=== PATIENT | male | born 1945 | race Caucasian/White ===

== ENCOUNTER → 2019-07-24 13:00 | Outpatient (CLI) | payer MEDICARE, OTHER, SELFPAY ==
--- NOTE | 2019-07-24 | XR_ITS ---
CHEST 2 VIEWS HISTORY: Smoking and left-sided pain. COMPARISON: 03/30/2018 Lungs: Hyperinflated lungs with changes of emphysema. Flattening of the diaphragms and increased AP diameter. No pneumonia. Normal vasculature. Cardiac size: Normal. Mediastinum/Aorta: Mild atherosclerosis aorta. Prior median sternotomy and CABG. Bones: Moderate increase in thoracic kyphosis. Mild anterior wedging of T7. Similar to prior studies. IMPRESSION: 1. Moderately severe chronic emphysema and prior CABG. 2. No pneumonia. 3. Stable chest. MTDD
== END ==
PROVIDERS: Family Provider Family Medicine; PCP Family Medicine; Visit Provider Nurse Practitioner Family
DX: Z01.89 Encounter for other specified special examinations (principal)

== ENCOUNTER 2019-09-14 11:40 | Outpatient (CLI) | payer MEDICARE, OTHER, SELFPAY ==
[2019-09-14 12:10] LABS: Basophils # 0.1 10^3/uL (0.0-0.1); Basophils % 0.7 %; Eosinophils # 0.2 10^3/uL (0.0-0.8); Eosinophils % 1.8 %; Hematocrit 44.9 % (42.0-52.0); Hemoglobin 14.4 g/dL (11.7-16.6); Lymphocytes % 26.9 %; Mean Corpuscular HGB Conc 32.1 g/dL (30.0-36.0); Mean Corpuscular Hemoglobin 30.8 pg (28.0-34.0); Mean Corpuscular Volume 96.1 fL (80-94); Mean Platelet Volume 9.1 fL (7.4-10.4); Monocytes # 0.9 10^3/uL (0.2-0.9); Monocytes % 7.9 %; Neutrophils # 7.1 10^3/uL (1.8-7.7); Neutrophils % 62.3 %; Nucleated Red Blood Cells % 0 %; Platelet Count 262 10^3/cmm (130-400); Red Blood Count 4.67 10^6/uL (4.1-5.3); Red Cell Distribution Width 14.3 % (12.1-15.1); White Blood Count 11.3 10^3/uL (4.0-10.0)
--- NOTE | 2019-09-14 12:25 | ECG_ITS ---
Measurements Intervals [place] Rate: 76 P: 78 NM: 183 QRS: 25 QRSD: 133 T: 39 QT: 370 QTc: 418 SINUS RHYTHM RIGHT BUNDLE BRANCH BLOCK [120+ ms QRS DURATION, UPRIGHT V1, 40+ ms S IN I/ I/aVL/V4/V5/V6] No previous ECG available for comparison Electronically Signed On 09-14-2019 14:17:22 PLUNKET NURSE by Xavier Oliveira M.D. [email or web address]
[2019-09-14 12:37] LABS: Anion Gap 15.8 (5-19); Blood Urea Nitrogen 19 mg/dL (8-23); Calcium 10.3 mg/dL (8.5-10.5); Carbon Dioxide 28 mmol/L (22-29); Chloride 101 mmol/L (98-107); Glucose 120 mg/dL (65-115); Osmolality Calculated 288 mOsm/kg (285-295); Potassium 4.8 mmol/L (3.5-5.1); Sodium 140 mmol/L (136-145)
== END 2019-09-14 11:41 | disposition home or self-care (01) ==
LOC: LAB 11:48
PROVIDERS: Family Provider Family Medicine; PCP Family Medicine; Visit Provider Specialist
DX: Z01.810 Encounter for preprocedural cardiovascular examination (principal); I45.10 Unspecified right bundle-branch block
CPT/HCPCS: 36415; 80048; 85025; 93005

== ENCOUNTER 2019-12-28 13:40 | Outpatient (CLI) | payer MEDICARE, OTHER, SELFPAY ==
--- NOTE | 2019-12-28 13:51 | XR_ITS ---
WS: [id number] DEXA (DUAL ENERGY X-RAY ABSORPTIOMETRY) Bone mineral density was performed using a Flinqer machine. HISTORY: OSTEOPOROSIS, 74-year-old male. COMPARISON: 11/14/2017 Lumbar spine BMD (L1-L4): 1.266 g/cm2 T score: 0.4 Z score: 0.5 Total hip BMD: Right: 0.835. T score: -1.9 Z score: -1.2 10 year probability of a major osteoporotic fracture is 10%. Compared to the prior study from 11/14/2017. Lumbar spine bone mineral density has increased by 1.4%. Bilateral hips bone mineral density has decreased by -0.9%. XR/XR DEXA axial skeleton* [id number] IMPRESSION: OSTEOPENIA. No significant change in bone mineral density since the prior exami [facility].
== END 2019-12-28 13:41 | disposition home or self-care (01) ==
LOC: RADWPI 13:47
PROVIDERS: Family Provider Family Medicine; PCP Family Medicine; Visit Provider Family Medicine
DX: M81.0 Age-related osteoporosis without current pathological fracture (principal); M85.89 Other specified disorders of bone density and structure, multiple sites
CPT/HCPCS: 77080

== ENCOUNTER 2020-01-01 08:15 | Outpatient (CLI) | payer MEDICARE, OTHER, SELFPAY ==
--- NOTE | 2020-01-01 09:08 | CT_ITS ---
WS: [id number] CT CHEST TECHNIQUE: Contrast enhanced CT of the chest with coronal and sagittal reformatted images. CLINICAL INFORMATION: HEMOPTYSIS COMPARISON: CT March 07, 2012 DLP: 823.[address] scans at [facility] use at least one of these dose optimization techniques: automat ed exposure control; mA and/or kV adjustment per patient size (includes targeted exams where dose is matched to clinical indication); or iterative reconstruction. FINDINGS: Small to moderate bilateral pleural effusions. Compressive atelectasis in the lung bases left greater than right. Interstitial thickening in both lungs likely due to edema CHF. Prominent mediastinal and subcarinal lymph nodes likely reactive. Adrenal glands are normal. Fatty atrophy of the pancreas. Cholecystectomy clips. Slightly prominent r etrocrural lymph nodes likely reactive. Small esophageal hiatal hernia. Hypertrophic changes thoracic spine. CT/CT chest w con* [id number] IMPRESSION: 1. Small to moderate bilateral pleural effusions with compressive atelectasis in the lung bases left greater than right. 2. Interstitial edema in both lungs likely due to CHF. 3. Postoperative changes sternotomy with CABG. No significant pericardial effu ebenezer. 4. Cholecystectomy. 5. Small esophageal hiatal hernia. 6. A few prominent anterior mediastinal and subcarinal lymph nodes likely reac tive.
[2020-01-01 09:39] LABS: Basophils # 0.1 10^3/uL (0.0-0.1); Basophils % 0.3 %; Eosinophils # 0.1 10^3/uL (0.0-0.8); Eosinophils % 0.8 %; Hematocrit 37.6 % (42.0-52.0); Hemoglobin 12.1 g/dL (11.7-16.6); Lymphocytes # 2.2 10^3/uL (0.8-4.8); Mean Corpuscular HGB Conc 32.2 g/dL (30.0-36.0); Mean Corpuscular Hemoglobin 31.4 pg (28.0-34.0); Mean Corpuscular Volume 97.7 fL (80-94); Mean Platelet Volume 11.4 fL (7.4-10.4); Monocytes # 0.9 10^3/uL (0.2-0.9); Monocytes % 5.7 %; Nucleated Red Blood Cells % 0 %; Platelet Count 283 10^3/cmm (130-400); Red Blood Count 3.85 10^6/uL (4.1-5.3); Red Cell Distribution Width 14.3 % (12.1-15.1); White Blood Count 15.4 10^3/uL (4.0-10.0)
[2020-01-01 10:10] LABS: INR 1.04 (0.8-1.2); Partial Thromboplastin Time 30.6 SECONDS (23.9-36.7)
[2020-01-01 10:30] LABS: Blood Urea Nitrogen 32 mg/dL (8-23)
[2020-01-01] MEDS: iodixanol 320 mg/mL 100mL Btl IV (10:55)
== END 2020-01-01 08:16 | disposition home or self-care (01) ==
PROVIDERS: Family Provider Family Medicine; PCP Family Medicine; Visit Provider Family Medicine
DX: R04.2 Hemoptysis (principal); R19.7 Diarrhea, unspecified; J90 Pleural effusion, not elsewhere classified; J98.11 Atelectasis; J81.1 Chronic pulmonary edema; Z95.1 Presence of aortocoronary bypass graft; Z90.49 Acquired absence of other specified parts of digestive tract; K44.9 Diaphragmatic hernia without obstruction or gangrene
CPT/HCPCS: 36415; 71260; 82565; 84520; 85025; 85610; 85730; 87015; 87070; 87077; 87116; 87186; 87205; 87206; 87493; 87801

== ENCOUNTER 2020-01-07 16:16 | Inpatient (IN) | payer MEDICARE, OTHER, SELFPAY ==
[2020-01-07] VITALS (35 sets, daily range): BP systolic 98–119; BP diastolic 38–50; PULSE 41–47; RESP 13–28; TEMP 36.7–36.8; O2SAT 89–96; BMI 30.1
--- NOTE | 2020-01-07 17:15 | XR_ITS ---
WS: [id number] CHEST XRAY TECHNIQUE: Portable chest. CLINICAL INFORMATION: sob COMPARISON: December 24, 2019, CT January 01, 2020 FINDINGS: Heart: Cardiomegaly. Sternotomy. Lungs: Chronic emphysematous changes. Interstitial infiltrates in the right greater than left lower l obes appears stable since the recent CT. No focal consolidation. Bones: Normal visualized bony structures. XR/XR chest 1V portable [id number] IMPRESSION: 1. Small left greater than right pleural effusions with interstitial infiltrat es in the right greater than left lower lobes. This appears stable since recent CT.
--- NOTE | 2020-01-07 17:15 | ECG_ITS ---
[facility] ED Test Date: 2020-01-07 Pat Name: Patience Salcedo Department: Room: Gender: 0 Mobile Phlebotomist: : 1945 Requested By: Vandana Cesar Order Number: [id number] Jeffrey MD: Debbie Clark M.D. Measurements Intervals [place] Rate: 43 P: [place]: 0 QRS: 43 QRSD: 109 T: 3 QT: 460 QTc: 392 Interpretive Statements SINUS RHYTHM third-degree heart block, junctional escape rhythm Possible left atrial enlargement compared to ECG 09/14/2019 12:25:28 Right bundle-branch block no longer present Electronically Signed On 01-09-2020 19:12:37 CDT by Debbie Clark M.D. [id number]
--- NOTE | 2020-01-07 17:22 | ED_ITS ---
HPI - SOB/Dyspnea General: Chief Complaint: Shortness of Breath/Dyspnea Stated Complaint: sob Time Seen by Provider: 01/07/20 17:16 Source: patient Mode of arrival: ambulatory Limitations: no limitations History of Present Illness: HPI Narrative: Patience is a 74-year-old male whose had shortness of breath for the last [address] weeks[address] Patient had a CT scan on the ninth that showed a very small pleural effusion. Patient also had a cough and was placed on antibiotics. He states that his cough is improved but his shortness of breath is worsened especially with exertion. CT scan showed no signs of pulmonary embolisms. Patient here upon exertion to triage and was saturating 80% on room air and had to be placed on oxygen. He is bradycardic and takes carvedilol at home. He had mild chest pain as well. MD elicited complaint: shortness of breath and cough Associated symptoms: Deny abdominal pain, chest pain, fever(s), nausea or vomiting Review of Systems Const: Denies: fever(s), chills, body aches or change in appetite Eyes: Denies: blurry vision or eye discomfort ENMT: Denies: throat pain or dental pain Card: Denies: chest pain Resp: Reports: dyspnea GI: Denies: abdominal pain, nausea, vomiting or diarrhea : Denies: dysuria Musc: Denies: neck pain or back pain Skin/Breast: Denies: rash Neuro: Denies: headache(s) Psych: Denies: depression Eb/Lymph: Denies: easy bruising All/Imm: Denies: urticaria PFSH ED PFSH: Social History Smoking and tobacco status: former smoker Physical Exam Const: COMMON NORMALS: no acute distress, patient oriented x3 and healthy appearing HENMT: COMMON NORMALS: normocephalic and atraumatic HEAD & SCALP: normocephalic and atraumatic Eye: COMMON NORMALS: Equal, round and reactive pupils present and EOMs intact bilaterally PUPIL: Yes Equal, round and reactive pupils present Neck/C-Spine: COMMON NORMALS: full ROM and supple Chest: COMMONS NORMALS: normal inspection of the chest and normal palpation of entire chest wall Resp: COMMON NORMALS: No retractions and No use of accessory muscles EFFORT & INSPECTION: Yes tachypneic AUSCULTATION: wheezes and diminished lung sounds Cardio: COMMON NORMALS: regular rate, regular rhythm and No murmurs present (Cardio) RATE: regular rate RHYTHM: regular rhythm GI: COMMON NORMALS: Normal to inspection, nondistended, normoactive bowel sounds present, Soft to palpation, non-tender and no masses PALPATION: Yes Soft to palpation Extremity: COMMON NORMALS: normal to inspection and full ROM Neuro: COMMON NORMALS: patient oriented x3, moves all extremities and no focal motor deficits Psych: COMMON NORMALS: mental status grossly normal, Normal thought process present and cooperative THOUGHT PROCESS: Normal thought process present Skin: COMMON NORMALS: no rashes or lesions noted and no wounds GENERAL SKIN EXAM: no rashes or lesions noted Course Vital Signs: Vital signs: Vital Signs Temperature 98.0 F 01/07/20 16:28 Pulse Rate 44 L 01/07/20 17:43 Respiratory Rate 18 01/07/20 17:36 Blood Pressure 98/50 01/07/20 16:28 Pulse Oximetry 95 01/07/20 17:36 MDM - SOB/Dyspnea MDM Narrative: Medical decision making narrative: Patient presents here with shortness of breath and was hypoxic. X-ray has appearance of pneumonia and a pleural effusion. Patient also has elevated BNP. Patient started antibiotics along with Lasix. Patient does have bradycardia here but blood pressures been normal. Will admit the ICU and spoke to the hospitalist. Also consulted cardiology. Lab Data: Labs: Lab Results 01/07/20 01/07/20 01/07/20 Range/Units 17:43 17:43 17:43 WBC 14.6 H (4.0-10.0) 10^3/ uL RBC 3.61 L (4.1-5.3) 10^6/u L Hgb 10.9 L (11.7-16.6) g/dL Hct 37.2 L (42.0-52.0) % MCV 103.0 H (80-94) fL MCH 30.2 (28.0-34.0) pg MCHC 29.3 L (30.0-36.0) g/dL RDW 14.6 (12.1-15.1) % Plt Count 216 (130-400) 10^3/c mm MPV 11.0 H (7.4-10.4) fL Neut % (Auto) 78.3 % Lymph % (Auto) 14.3 % [place] % (Auto) 5.9 % Eos % (Auto) 0.5 % Baso % (Auto) 0.4 % Neut # (Auto) 11.4 H (1.8-7.7) 10^3/u L Lymph # (Auto) 2.1 (0.8-4.8) 10^3/u L [place] # (Auto) 0.9 (0.2-0.9) 10^3/u L Eos # (Auto) 0.1 (0.0-0.8) 10^3/u L Baso # (Auto) 0.1 (0.0-0.1) 10^3/u L Nucleated RBC % (a uto) 0 % Nucleated RBCs # 0.0 /100WBC Sodium 139 (136-145) mmol/L Potassium 4.5 (3.5-5.1) mmol/L Chloride 108 H (98-107) mmol/L Carbon Dioxide 18 L (22-29) mmol/L Anion Gap 17.5 (5-19) BUN 34 H (8-23) mg/dL Creatinine 1.5 H (0.7-1.2) mg/dL Glucose 95 (65-115) mg/dL Calculated Osmolal ity 285 (285-295) mOsm/k g Calcium 8.9 (8.5-10.5) mg/dL Total Bilirubin 0.6 (0.15-1.2) mg/dL AST 16 (0-40) U/L ALT 28 (0-41) U/L Alkaline Phosphata se 145 H (40-130) IU/L Troponin T Baselin e 21 H (0-15) ng/L Troponin T 120 Min [place] (0-15) ng/L Delta Troponin T (0-10) ABS# NT-Pro-B Natriuret Pep 2528 H (0-450) pg/mL Total Protein 6.2 L (6.6-8.7) g/dL Albumin 2.9 L (3.5-5.2) g/dL Globulin 3.3 (1.3-4.6) g/dL 01/07/20 Range/Units 19:26 WBC (4.0-10.0) 10^3/ uL RBC (4.1-5.3) 10^6/u L Hgb (11.7-16.6) g/dL Hct (42.0-52.0) % MCV (80-94) fL MCH (28.0-34.0) pg MCHC (30.0-36.0) g/dL RDW (12.1-15.1) % Plt Count (130-400) 10^3/c mm MPV (7.4-10.4) fL Neut % (Auto) % Lymph % (Auto) % [place] % (Auto) % Eos % (Auto) % Baso % (Auto) % Neut # (Auto) (1.8-7.7) 10^3/u L Lymph # (Auto) (0.8-4.8) 10^3/u L [place] # (Auto) (0.2-0.9) 10^3/u L Eos # (Auto) (0.0-0.8) 10^3/u L Baso # (Auto) (0.0-0.1) 10^3/u L Nucleated RBC % (a uto) % Nucleated RBCs # /100WBC Sodium (136-145) mmol/L Potassium (3.5-5.1) mmol/L Chloride (98-107) mmol/L Carbon Dioxide (22-29) mmol/L Anion Gap (5-19) BUN (8-23) mg/dL Creatinine (0.7-1.2) mg/dL Glucose (65-115) mg/dL Calculated Osmolal ity (285-295) mOsm/k g Calcium (8.5-10.5) mg/dL Total Bilirubin (0.15-1.2) mg/dL AST (0-40) U/L ALT (0-41) U/L Alkaline Phosphata se (40-130) IU/L Troponin T Baselin e (0-15) ng/L Troponin T 120 Min [place] 24.25 H (0-15) ng/L Delta Troponin T 3.25 (0-10) ABS# NT-Pro-B Natriuret Pep (0-450) pg/mL Total Protein (6.6-8.7) g/dL Albumin (3.5-5.2) g/dL Globulin (1.3-4.6) g/dL Imaging Data^: CXR: My impression: Rll pneumonia, left sided pleural effusion EKG Data^: EKG 1: Attestation: I personally reviewed and interpreted this EKG as follows: EKG Interpretation Date: 01/07/20 EKG interpretation time: 17:33 Interpretation: AV block hr [address] or t wave abnormalities Critical Care Time Critical Care Time: Critical Care Time: Yes Total Critical Care Time: 35 Attestation: This case had a high probability of a clinically significant, sudden, or life threatening deterioration of this patient's condition which required my full and direct attention, intervention and personal management. Discharge Plan Discharge Patient Disposition: Admitted As Inpatient Clinical Impression: Bradycardia Community acquired pneumonia Qualifiers: Laterality: right Lung location: lower lobe of lung Qualified Code(s): J18.9 - Pneumonia, unspecified organism Congestive heart failure Qualifiers: Heart failure type: unspecified Condition: Stable Referrals: Hema Hartman MD [Primary Care Provider] - Coding Level of Care Code ED Furniture Dipper for Chg Fwd Exam Comprehensive
[2020-01-07] MEDS: ipratropium-albuterol 3 mL Neb INHALATION (17:37)
[2020-01-07 17:52] LABS: Basophils # 0.1 10^3/uL (0.0-0.1); Basophils % 0.4 %; Eosinophils # 0.1 10^3/uL (0.0-0.8); Eosinophils % 0.5 %; Hematocrit 37.2 % (42.0-52.0); Hemoglobin 10.9 g/dL (11.7-16.6); Lymphocytes # 2.1 10^3/uL (0.8-4.8); Lymphocytes % 14.3 %; Mean Corpuscular HGB Conc 29.3 g/dL (30.0-36.0); Mean Corpuscular Hemoglobin 30.2 pg (28.0-34.0); Monocytes # 0.9 10^3/uL (0.2-0.9); Monocytes % 5.9 %; Neutrophils # 11.4 10^3/uL (1.8-7.7); Neutrophils % 78.3 %; Nucleated Red Blood Cells % 0 %; Platelet Count 216 10^3/cmm (130-400); Red Blood Count 3.61 10^6/uL (4.1-5.3); Red Cell Distribution Width 14.6 % (12.1-15.1); White Blood Count 14.6 10^3/uL (4.0-10.0)
[2020-01-07 18:11] LABS: Troponin(5th) Baseline 21 ng/L (0-15)
[2020-01-07 18:18] LABS: Alanine Aminotransferase 28 U/L (0-41); Albumin Level 2.9 g/dL (3.5-5.2); Alkaline Phosphatase 145 IU/L (40-130); Anion Gap 17.5 (5-19); Aspartate Amino Transferase 16 U/L (0-40); Blood Urea Nitrogen 34 mg/dL (8-23); Calcium 8.9 mg/dL (8.5-10.5); Carbon Dioxide 18 mmol/L (22-29); Chloride 108 mmol/L (98-107); Globulin 3.3 g/dL (1.3-4.6); Glucose 95 mg/dL (65-115); NT Pro B Type Natriuretic Pept 2528 pg/mL (0-450); Osmolality Calculated 285 mOsm/kg (285-295); Potassium 4.5 mmol/L (3.5-5.1); Sodium 139 mmol/L (136-145); Total Bilirubin 0.6 mg/dL (0.15-1.2); Total Protein 6.2 g/dL (6.6-8.7)
[2020-01-07] MEDS: FUROsemide 10 mg/mL SDV 10mL 60 MG IVP (18:41)
[2020-01-07] MEDS: cefTRIAXone 1,000 MG in sodium chloride 0.9% (plus) 50 ML 100 MG IV (18:42)
--- NOTE | 2020-01-07 19:15 | ECG_ITS ---
Measurements Intervals [place] Rate: 43 P: [place]: 0 QRS: 62 QRSD: 107 T: -3 QT: 478 QTc: 404 Third-degree heart block with a junctional escape rhythm ABNORMAL QRS-T ANGLE [QRS-T AXIS DIFFERENCE > 60] Compared to ECG 09/14/2019 12:25:28 Right bundle-branch block no longer present Electronically Signed On 01-07-2020 20:37:53 CDT by Debbie Clark M.D. [id number]
[2020-01-07 19:49] LABS: Troponin 5 2HR 24.25 ng/L (0-15); Troponin 5 2HR Delta 3.25 ABS# (0-10)
--- NOTE | 2020-01-07 19:53 | PM.HP ---
Providers/Chief Complaint Primary Care Provider: Hema Hartman MD Chief Complaint: sob History of Present Illness Patience Salcedo is a very pleasant 74 year old geentleman who comes to the ER for evaluation due to persistent shortness of breath, cough, and easy fatigability for the past several weeks, worse in the last week, and was diagnosed with pneumonia by his primary care provider on Tuesday for which he says has so far taken 5 days of Levaquin. He had somewhat similar symptoms about 3 weeks ago at which point was tested for COVID-19 was negative. On 12/[address] of the chest with contrast which found small to moderate bilateral pleural effusions, compressive atelectasis greater on the right, interstitial edema in both lungs concerning for CHF, and few prominent anterior mediastinal and subcarinal lymph nodes, other incidental findings. No PE was seen. He denies running a fever at home, however, says that he has been having recurrent cough with some blood tinged sputum intermittently. He endorses history of COPD, as well as DARIUS for which she wears nightly CPAP. He is not normally on oxygen. In ER he is noted to have saturation in the 80s on room air on presentation. He denies any chest pain or pressure, however, he has been somewhat persistently bradycardic in the 40s which was noted to be an issue by his primary care provider as well. Heart block is noted on EKG. He takes carvedilol at home. Due to lack of improvement with outpatient management additional assessment and treatment in the hospital was requested. Review of Systems Const: Reports: fatigue; Denies: fever(s), chills, body aches or malaise Eyes: Denies: change in vision or eye redness ENMT: Denies: throat pain, oral sores or ear or mastoid pain Card: Reports: dyspnea on exertion; Denies: chest pain, edema or pre-syncope Resp: Reports: dyspnea, productive cough and hemoptysis; Denies: change in phlegm color GI: Denies: abdominal pain, nausea, vomiting, diarrhea, constipation, hematochezia or melena : Denies: flank pain, difficulty urinating, urinary frequency or hematuria Musc: Denies: back pain, joint swelling or joint redness Skin/Breast: Denies: rash, sores or new lesions Neuro: Denies: headache(s), numbness in extremities, weakness in extremities, dizziness, confusion or seizure-like activity Endo: Denies: polyuria or polydipsia Eb/Lymph: Denies: easy bleeding or purpura All/Imm: Denies: urticaria, throat swelling or tongue swelling Medications/Allergies Home Medications Medication Instructions Recorded Confirmed Last Taken Type lisinopril 5 mg tablet 5 mg PO DAILY #30 tab 12/04/19 01/07/20 01/07/20 Rx albuterol sulfate [Ventolin HFA] 2 inh INHALATION TID 01/07/20 01/07/20 01/07/20 History atorvastatin 40 mg PO DAILY 01/07/20 01/07/20 01/06/20 History carvedilol 6.25 mg PO DAILY 01/07/20 01/07/20 01/07/20 History famotidine 20 mg PO DAILY 01/07/20 01/07/20 01/07/20 History fluticasone propionate 1 spray INTRANASAL DAILY 01/07/20 01/07/20 01/07/20 History garlic 1,000 mg PO DAILY 01/07/20 01/07/20 01/06/20 History metformin 500 mg PO BID 01/07/20 01/07/20 01/06/20 History montelukast 10 mg PO DAILY 01/07/20 01/07/20 01/07/20 History multivitamin [Multiple Vitamins] 1 tab PO DAILY 01/07/20 01/07/20 01/06/20 History omega 2-klg-rvz-fish oil [Fish Oil] 1 cap PO DAILY 01/07/20 01/07/20 01/06/20 History Allergies Allergy/AdvReac Type Severity Reaction Status Date / Time No Known Allergies Allergy Verified 01/07/20 17:46 PFSH Acute PFSH: Medical History CAD (coronary artery disease) COPD (chronic obstructive pulmonary disease) Fracture, femoral DARIUS (obstructive sleep apnea) Surgical History Hx of CABG Hx of cholecystectomy Family History Mother CAD (coronary artery disease) Social History Smoking and tobacco status: former smoker Alcohol intake: never Substance/Drug Use: never Household members: spouse Marital status: Current occupational status: retired Vitals/I&O/Wt Last Vital Signs Temp 98.0 F 01/07/20 16:28 Pulse 44 L 01/07/20 17:43 Resp 18 01/07/20 17:36 BP 98/50 01/07/20 16:28 Pulse Ox 95 01/07/20 17:36 Weight last 48 hrs Weight 95.254 kg Physical Exam Const: COMMON NORMALS: no acute distress and patient oriented x3 HENMT: COMMON NORMALS: oropharynx normal Neck/C-Spine: GENERAL: Yes other (Thick neck, no obv JVD) Resp: COMMON NORMALS: normal respiratory effort AUSCULTATION: wheezes and diminished lung sounds Cardio: COMMON NORMALS: no JVD, regular rhythm, S1 normal heart sound present, S2 normal heart sound present and No murmurs present (Cardio) RHYTHM: regular rhythm HEART SOUNDS: S1 normal heart sound present and S2 normal heart sound present GI: COMMON NORMALS: Normal to inspection, nondistended, normoactive bowel sounds present, Soft to palpation and non-tender PALPATION: Yes Soft to palpation Extremity: COMMON NORMALS: no joint enlargement and no pedal edema Neuro: COMMON NORMALS: patient oriented x3 and moves all extremities Skin: COMMON NORMALS: no rashes or lesions noted GENERAL SKIN EXAM: no rashes or lesions noted Data : 01/07/20 17:43 01/07/20 17:43 Micro: Microbiology 01/07/20 17:43 Blood Culture - Preliminary Blood SPECIMEN COLLECTED 01/07/20 18:24 Blood Culture - Preliminary Blood SPECIMEN COLLECTED A&P Assessment and plan (1) Hypoxia: Multifactorial due to pneumonia, COPD exacerbation. Cannot exclude degree of heart failure as well, with bradycardia, AV block, although BNP is elevated in the setting of acute kidney injury. He does not have peripheral edema, does not endorse significant orthopnea. Some interstitial edema suggested by imaging. Would like to have a look with TTE to exclude any structural abnormalities contributing. Complete trop and EKG. Otherwise treat pneumonia and COPD exacerbation as below. Pleural effusions bilaterally: R>L. Consider additional evaluation for diagnostic/therapeutic thoracentesis on non-emergent basis. Reports history of DARIUS on CPAP nightly. Status: Acute (2) COPD exacerbation: Productive cough, occasionally with blood-tinged sputum. Wheezing on exam. Not normally on oxygen. Says he is a former smoker, although still intermittently picks up a cigarette once in a while. We will start, on daily prednisone, antibiotics as for pneumonia, breathing treatments. Collect urine culture. Oxygen support. Status: Acute (3) Pneumonia: Non-resolving PNA despite OP treatment w Levaquin. Broaden antibiotics at this time with Zosyn and vancomycin. Does have mild acute kidney injury, please reevaluate and adjust dosing for renal in case of progressive worsening renal function. Will check MRSA PCR. Check urine bacterial antigens. He has been afebrile. Denies any headache, denies any loss of smell or other suspicious symptoms. He was tested for COVID-19 about 3 weeks ago for similar symptoms without changes in his daily routine. He lives with his who is not ill. Status: Acute (4) AV heart block: Heart rates down into mid to low 40s. For now we will hold carvedilol. Monitor on telemetry. Status: Acute (5) HAZEL (acute kidney injury): Creatinine up to 1.5. BUN is elevated. Blood pressure is soft here in ER. Suspect may be prerenal, possibly relates of blood pressure, in combination with lisinopril, possibly occasional worse bradycardia than currently. Monitor on telemetry. Hold carvedilol for now. Monitor blood pressure. Hold lisinopril. Monitor renal function, additional studies if not improving. Status: Acute Additional A&P Information Isolated AP elev: No abdominal pain. Recheck. Check GGT CAD: For now hold BB, ACEI. Cont statin. DARIUS: CPAP nightly Other medical problems. Attestations Medical Necessity Statement*: Admission of over 2 midnights will be needed for assessment and managment of hypoxia, non-resolving PNA, Coding Level of Care Code Acute Service Vehicle Operator for Angelika Mckenzie Diagnoses Hypoxia R09.02 COPD exacerbation J44.1 Pneumonia J18.9 AV heart block I44.30 HAZEL (acute kidney injury) N17.9
[2020-01-07] MEDS: azithromycin 500 MG in sodium chloride 0.9% 250 ML 250 MG IV (20:03)
--- NOTE | 2020-01-07 22:02 | P.CONIM_ITS ---
Providers/Reason For Consult Consulting Physican/Specialty*: Dr. Yadav, Cardiology Reason for Consult*: Bradycardia, high grade AV block Attending Physician: Kev Dockery Primary Care Provider: Hema Hartman MD History of Present Illness History of Present Illness Patience Salcedo is a 74 year old man with PMHx of coronary artery disease status post bypass surgery, hypertension, mild LV dysfunction, hyperlipidemia, h/o TIA, COPD and DARIUS on CPAP. He usually follows with Dr. Florez. He presented to the ER for evaluation of worsening shortness of breath, cough, and easy fatigability for past few weeks that has worsened inspite of treatment with antibiotics. He was diagnosed with pneumonia by Dr. Hartman on Tuesday and was treated with Levaquin. He was tested for COVID-19 three weeks that was negative. He denies any fever. He complains of recurrent cough with some blood tinged sputum intermittently, + chills and bradycardia that was noted at PCP's office. He denies any chest pain, worsening leg swelling or PND. He was noted to have saturation in the 80s on room air on presentation. On 12/[address] chest that showed small to moderate bilateral pleural effusions, compressive atelectasis greater on the right, interstitial edema in both lungs concerning for CHF. No PE was seen. He takes carvedilol at home. I have been asked to assist in further management of this patient given EKG evidence of high grade AV block and third degree AV block with junctional escape rhythm in 40's. Review of Systems Const: Reports: chills; Denies: fever(s) or change in weight ENMT: Denies: nasal congestion or epistaxis Card: Reports: dyspnea on exertion and orthopnea; Denies: chest pain or palpitations Resp: Reports: dyspnea, productive cough and hemoptysis GI: Denies: abdominal pain, nausea, vomiting or hematochezia : Denies: dysuria or hematuria Skin/Breast: Denies: rash Neuro: Denies: headache(s) or weakness in extremities Psych: Denies: anxiety or depression Endo: Reports: tired all the time; Denies: change in body appearance Eb/Lymph: Denies: petechiae or purpura Meds/Allergies Home Medications and Allergies Home Medications Medication Instructions Recorded Confirmed Last Taken Type lisinopril 5 mg tablet 5 mg PO DAILY #30 tab 12/04/19 01/07/20 01/07/20 Rx albuterol sulfate [Ventolin HFA] 2 inh INHALATION TID 01/07/20 01/07/20 01/07/20 History atorvastatin 40 mg PO DAILY 01/07/20 01/07/20 01/06/20 History carvedilol 6.25 mg PO DAILY 01/07/20 01/07/20 01/07/20 History famotidine 20 mg PO DAILY 01/07/20 01/07/20 01/07/20 History fluticasone propionate 1 spray INTRANASAL DAILY 01/07/20 01/07/20 01/07/20 History garlic 1,000 mg PO DAILY 01/07/20 01/07/20 01/06/20 History metformin 500 mg PO BID 01/07/20 01/07/20 01/06/20 History montelukast 10 mg PO DAILY 01/07/20 01/07/20 01/07/20 History multivitamin [Multiple Vitamins] 1 tab PO DAILY 01/07/20 01/07/20 01/06/20 History omega [id number]-fish oil [Fish Oil] 1 cap PO DAILY 01/07/20 01/07/20 01/06/20 History Allergies Allergy/AdvReac Type Severity Reaction Status Date / Time No Known Allergies Allergy Verified 01/07/20 17:46 PFSH Acute PFSH: Medical History CAD (coronary artery disease) Chronic anemia -baseline Hg around 10 CKD (chronic kidney disease) stage 2, GFR 60-89 ml/min -baseline Cr wnl COPD (chronic obstructive pulmonary disease) Fracture, femoral HTN (hypertension) Non-insulin dependent diabetes mellitus Obesity DARIUS (obstructive sleep apnea) Surgical History Hx of CABG Hx of cholecystectomy Family History Mother CAD (coronary artery disease) Social History Smoking and tobacco status: former smoker Alcohol intake: never Household members: spouse Marital status: Current occupational status: retired Vitals/I&O/Wt Last Vital Signs Temp 98.2 F 01/07/20 21:30 Pulse 46 L 01/07/20 21:30 Resp 16 01/07/20 21:30 BP 119/50 01/07/20 21:30 Pulse Ox 95 01/07/20 21:30 01/07/20 01/07/20 01/07/20 06:59 14:59 22:59 Intake Total 50 / 50 Balance 50 / 50 Weight last 48 hrs Weight 210 lb Physical Exam Const: COMMON NORMALS: no acute distress, average body habitus, patient oriented x3, alert and well nourished GENERAL APPEARANCE: cooperative, comfortable, well kempt and well developed ORIENTATION/CONSCIOUSNESS: Yes oriented to person, Yes oriented to place and Yes oriented to time HENMT: COMMON NORMALS: normocephalic, atraumatic, hearing grossly normal bilaterally, external ears normal and Normal external nose present HEAD & SCALP: normocephalic and atraumatic NOSE: Normal external nose present EXTERNAL EAR: Yes external ears normal Eye: COMMON NORMALS: Equal, round and reactive pupils present, EOMs intact bilaterally and conjunctivae normal CONJUNCTIVA: Yes conjunctivae normal PUPIL: Yes Equal, round and reactive pupils present Neck/C-Spine: COMMON NORMALS: supple and no JVD; negative for No carotid bruits Chest: COMMONS NORMALS: normal inspection of the chest Resp: COMMON NORMALS: normal respiratory effort AUSCULTATION: no crackles, no rales, no rhonchi, wheezes (occasional ) expiratory wheezes and other (decreased bilateral air entry) Cardio: COMMON NORMALS: no JVD, S1 normal heart sound present, S2 normal heart sound present and Peripheral pulses 2+ throughout; negative for No gallops present (Cardio) and negative for No clicks present (Cardio) JUGULAR VENOUS DISTENTION: no JVD PALPATION: normal PMI, no heave, no palpable S3 and no palpable S4 HEART SOUNDS: S1 normal heart sound present, S2 normal heart sound present, no gallops and no murmurs BRUITS: no carotid bruits PERIPHERAL PULSES: Peripheral pulses 2+ throughout GI: COMMON NORMALS: Normal to inspection, nondistended, normoactive bowel sounds present, Soft to palpation and non-tender PALPATION: Yes Soft to palpation RECTAL EXAM: Yes deferred Neuro: COMMON NORMALS: patient oriented x3 and no focal motor deficits SENSORIUM/ORIENTATION: Yes alert, Yes oriented to person, Yes oriented to place and Yes oriented to time CRANIAL NERVES: Yes CN normal except as noted Psych: COMMON NORMALS: Normal thought process present APPEARANCE: Yes well kempt THOUGHT PROCESS: Normal thought process present THOUGHT CONTENT: Yes Normal thought content present ATTENTION/CONCENTRATION: Yes attention grossly intact MEMORY/COGNITION: Yes memory grossly intact Data Micro: Micro: Microbiology 01/07/20 17:43 Blood Culture - Pr eliminary Blood [facility] 01/07/20 18:24 Blood Culture - Pr eliminary Blood [facility] Imaging^: Echo: My impression: 04/03/2019 CONCLUSIONS? ?1-Mildly increased left ventricular cavity size. Mildly?? ?decreased left ventricular systolic function. Left ventricular?? ?ejection fraction is estimated at 49 %.? There appeared to be?? ?septal bounce which could be secondary to interventricular?? ?conduction delay or postoperative state.Grade I/IV diastolic?? ?dysfunction (abnormal relaxation filling pattern), normal to?? ?mildly elevated filling pressures.?? ?2-Moderate aortic valve calcification. No aortic valve stenosis.?? ?No aortic valve regurgitation.?? ?3-There is no pericardial effusion.?? ?4-Pulmonary artery systolic pressure is within normal limits.?? ?5-Right atrial pressure is around 5 mm of mercury.?? ?6-No significant change since the prior echocardiogram study of?? ?01/19/2013.?? A&P Assessment and plan (1) AV heart block: EKG showing high grade AV block and third degree AV block with junctional escape rhythm in mid 40's. -No episode of dizziness, syncope. He does endorse to fatigue however could be in setting of ongoing respiratory issues. -Hold AV faraz dixon and monitor closely in ICU. -f/u on echo. -In case this rhythm persists/ symptoms worsen, he potentially would need dual chamber PPM. Status: Acute (2) Hypoxia: likely multifactorial due to pneumonia, pleural effusions and COPD exacerbation. Otherwise treat pneumonia and COPD exacerbation as below. -clinically does not seem to be overtly fluid overloaded. -continue I/O monitoring and BMP Status: Acute (3) CAD (coronary artery disease): Status: Chronic Qualifiers: Coronary Disease-Associated Artery/Lesion type: [place] artery [place] vs. transplanted heart: [place] heart Associated angina: without angina Qualified Code(s): I25.10 - Atherosclerotic heart disease of [place] coronary artery without angina pectoris (4) Congestive heart failure: Status: Acute Qualifiers: Heart failure type: unspecified (5) COPD (chronic obstructive pulmonary disease): Status: Acute Qualifiers: COPD type: unspecified COPD Qualified Code(s): J44.9 - Chronic obstructive pulmonary disease, unspecified (6) HAZEL (acute kidney injury): HAZEL on CKD -f/u BMP Status: Acute (7) Pneumonia: On broad spectrum antibiotics. Status: Acute Qualifiers: Pneumonia type: due to unspecified organism Laterality: bilateral Lung location: lower lobe of lung Qualified Code(s): J18.9 - Pneumonia, unspecified organism Additional A&P Information history of DARIUS on CPAP Consult Attestations Medical Necessity Statement: Needs hospital stay for hypoxia, PNA and AV block Coding Level of Care Code Acute Executive Assistant To President for Chg Fwd Exam Comprehensive Diagnoses AV heart block I44.30 Hypoxia R09.02 CAD (coronary artery disease) I25.10 Coronary Disease-Associated Artery/Lesion type: [place] artery [place] vs. transplanted heart: [place] heart Associated angina: without angina Congestive heart failure I50.9 Heart failure type: unspecified COPD (chronic obstructive pulmonary disease) J44.9 COPD type: unspecified COPD HAZEL (acute kidney injury) N17.9 Pneumonia J18.9 Pneumonia type: due to unspecified organism Laterality: bilateral Lung location: lower lobe of lung
--- NOTE | 2020-01-07 22:23 | PC.PHAR ---
Pharmacokinetic dosing service Date: 01/07/20 Time: 2229 Objective: Patient: Patience Salcedo Floor: ICU-4 Age: 74 yo Serum creatinine: 1.5 mg/dL Height: 70.0 Inches Weight (kg): 95.254 Diagnosis: Relevant medical/social history: Cultures and sensitivities: Other labs: Assessment: IBW (kg): 73.00 Dosing wt(kg): 95.254 Estimated Creatinine clearance (ml/min): 43.9 CRCL method: Cockcroft and Gault using ibw(default). Drug selected: Vancomycin Loading dose (mg): 0 Vd (liters): 85.7 (factor used: 0.9 L/kg) Alvarez (hr-1): 0.041 Half life (hrs): 16.91 Recommended dose: 1750 mg Interval: 24 hrs Infusion time (hrs): 1.5 Predicted peak (mcg/mL): 31.6 Predicted trough (mcg/mL): 12.56 Total body weight is being used for vancomycin dosing. Renal function is stable [ ] /unstable [ ] Recommendations: Give Vancomycin 1750 mg q 24 hrs with an expected Cpeak of 31.6 mcg/ml and an expected Ctrough of 12.56 mcg/ml Renal dosing of other antibiotics (review renal dosing of other medications and list guidelines here): Thank you for the consult, will continue to follow. Signature: Aly[facility]
[2020-01-07] MEDS: heparin 5,000 unit/mL INJ 1 mL 5000 UNIT SUBCUT (22:24)
[2020-01-07] MEDS: levofloxacin-dextrose 5 % 750 MG/150 ML PREMIX 100 MG IV (22:24)
[2020-01-07] MEDS: predniSONE 20 mg Tablet 40 MG PO (22:24)
--- NOTE | 2020-01-07 23:15 | ECG_ITS ---
Measurements Intervals [place] Rate: 44 P: MS: 0 QRS: 50 QRSD: 103 T: -1 QT: 457 QTc: 392 SINUS RHYTHM WITH HIGH GRADE AV BLOCK Compared to ECG 09/14/2019 12:25:28 Right bundle-branch block no longer present Electronically Signed On 01-07-2020 20:37:16 CDT by Debbie Clark M.D. [email or web address]
[2020-01-07 23:26] LABS: Troponin 5 6HR 22.03 ng/L (0-15); Troponin 5 6HR Delta 1.03 ng/L (0-12)
[2020-01-08] VITALS (74 sets, daily range): BP systolic 94–135; BP diastolic 39–56; PULSE 39–59; RESP 14–25; TEMP 35.5–37.1; O2SAT 90–96
[2020-01-08 01:15] LABS: Gamma Glutamyl Transferase 52 U/L (8-61)
[2020-01-08] MEDS: piperacillin-tazobactam 3.375 GM in sodium chloride 0.9% (plus) 50 ML IV ×3 (01:37→15:50)
[2020-01-08 03:59] LABS: Basophils % 0.3 %; Hematocrit 32.1 % (42.0-52.0); Lymphocytes # 0.8 10^3/uL (0.8-4.8); Lymphocytes % 9.9 %; Mean Corpuscular HGB Conc 31.2 g/dL (30.0-36.0); Mean Corpuscular Hemoglobin 30.3 pg (28.0-34.0); Mean Corpuscular Volume 97.3 fL (80-94); Mean Platelet Volume 10.6 fL (7.4-10.4); Monocytes # 0.1 10^3/uL (0.2-0.9); Monocytes % 0.8 %; Neutrophils % 88.5 %; Nucleated Red Blood Cells % 0 %; Platelet Count 198 10^3/cmm (130-400); Red Cell Distribution Width 14.4 % (12.1-15.1); White Blood Count 7.9 10^3/uL (4.0-10.0)
[2020-01-08 04:48] LABS: Alanine Aminotransferase 23 U/L (0-41); Albumin Level 2.6 g/dL (3.5-5.2); Alkaline Phosphatase 132 IU/L (40-130); Anion Gap 18.7 (5-19); Aspartate Amino Transferase 18 U/L (0-40); Blood Urea Nitrogen 42 mg/dL (8-23); Calcium 8.6 mg/dL (8.5-10.5); Carbon Dioxide 18 mmol/L (22-29); Chloride 109 mmol/L (98-107); Globulin 2.9 g/dL (1.3-4.6); Glucose 152 mg/dL (65-115); Osmolality Calculated 293 mOsm/kg (285-295); Potassium 4.7 mmol/L (3.5-5.1); Sodium 141 mmol/L (136-145); Total Bilirubin 0.4 mg/dL (0.15-1.2); Total Protein 5.5 g/dL (6.6-8.7)
[2020-01-08] MEDS: heparin 5,000 unit/mL INJ 1 mL 5000 UNIT SUBCUT ×3 (05:56→19:54)
--- NOTE | 2020-01-08 07:00 | USCV_ITS ---
Patience Salcedo Age: 74 Gender: M : 1945 Exam Date: 01/08/2020 06:37 Ordering Phys: Kev Dockery MD Technologist: Ceci Oneil [place] [facility] [place]: HYPOXIA BP: 99 / 44 HR: 43 Rhythm: Sinus Technical Quality: Technically difficult study MEASUREMENTS (Male / Female) Normal Values 2D ECHO LV Diastolic Diameter PLAX 4.9 cm 4.2 - 5.9 / 3.9 - 5.3 cm LV Systolic Diameter PLAX 4.1 cm LV Chamber Size 4.5 cm IVS Diastolic Thickness 1.0 cm 0.6 - 1.0 / 0.6 - 0.9 cm IVS Systolic Thickness 1.4 cm LVPW Diastolic Thickness 1.6 cm 0.6 - 1.0 / 0.6 - 0.9 cm LVPW Systolic Thickness 2.0 cm RV Chamber Size 4.1 cm LVOT Diameter 2.0 cm LV Ejection Fraction 2D Teich 34.7 % LV Ejection Fraction MOD 2C 57.0 % LV Ejection Fraction 2C AL 56.9 % LA Diameter 5.1 cm LA Width 3.5 cm LA Height 4.8 cm RA Width 3.9 cm RA Height 3.7 cm Aorta at Sinotubular Diameter 2.3 cm M-MODE LV Diastolic Diameter MM 6.9 cm 4.2 - 5.9 / 3.9 - 5.3 cm LV Systolic Diameter MM 5.4 cm LV Ejection Fraction MM Teich 42.8 % IVS Diastolic Thickness MM 1.5 cm 0.6 - 1.0 / 0.6 - 0.9 cm IVS Systolic Thickness MM 1.4 cm LVPW Diastolic Thickness MM 1.6 cm 0.6 - 1.0 / 0.6 - 0.9 cm LVPW Systolic Thickness MM 1.4 cm Aortic Annulus Diameter 3.3 cm LA Ao Ratio MM 1.5 MV E Point Septal Separation 1.4 cm DOPPLER AV Peak Velocity 220.0 cm/s LVOT Peak Velocity 116.0 cm/s AV Area Cont Eq vti 2.2 cm squared AV Area Cont Eq pk 1.7 cm squared MV Area PHT 4.6 cm squared Mitral E to A Ratio 1.5 MV E' Velocity 9.0 cm/s Mitral E to MV E' Ratio 14.4 Mitral E to LV E' Lateral Ratio 22.1 Mitral E to LV E' Septal Ratio 10.7 TR Peak Velocity 321.0 cm/s TR Peak Gradient 41.3 mmHg TV Peak E Velocity 62.0 cm/s Right Atrial Pressure 3.0 mmHg Pulmonary Artery Systolic Pressu 44.2 mmHg PV Peak Velocity 82.0 cm/s RV Acceleration Time 0.1 s RV Ejection Time 0.5 s RV AcT/ET 0.3 FINDINGS Left Ventricle Normal left ventricular size and systolic function, EF 55%. Mild left ventricular hypertrophy. No regional wall motion abnormalities. Grade I/IV diastolic dysfunction (abnormal relaxation filling pattern), normal to mildly elevated filling pressures. Right Ventricle Normal right ventricular size and systolic function. Right Atrium Normal right atrial size. Left Atrium Normal left atrial size. Mitral Valve Moderate mitral annular calcification. Thickened mitral valve. Mild-moderate mitral valve regurgitation. Aortic Valve Aortic valve sclerosis. Trace aortic valve regurgitation. Tricuspid Valve Trace to mild tricuspid valve regurgitation. Pulmonic Valve Pulmonic valve not well visualized. Pericardium No pericardial effusion. Aorta Normal aortic annulus size. CONCLUSIONS Normal left ventricular size and systolic function, EF 55%. Mild left ventricular hypertrophy. No regional wall motion abnormalities. Grade I/IV diastolic dysfunction (abnormal relaxation filling pattern), normal to mildly elevated filling pressures. Moderate mitral annular calcification. Thickened mitral valve. Mild-moderate mitral valve regurgitation. Aortic valve sclerosis. Trace aortic valve regurgitation. Trace to mild tricuspid valve regurgitation. Estimated pulmonary artery peak systolic pressure of 44 mmHg- (mild pulmonary hypertension). There is no pericardial effusion. There are no intracardiac masses. Compared to the previous study from 04/03/2019, there may not be a significant change Dr Debbie Clark MD FACC (Electronically Signed) Final Date: 08 January 2020 19:49 S
[2020-01-08] MEDS: atorvastatin 40 mg Tablet PO (08:12)
[2020-01-08] MEDS: fluticasone nasal spray 16gm Btl 1 SPRAY INTRANASAL (08:12)
[2020-01-08] MEDS: montelukast sodium 10 mg Tablet PO (08:12)
[2020-01-08] MEDS: predniSONE 20 mg Tablet 40 MG PO (08:12)
[2020-01-08] MEDS: ipratropium-albuterol 3 mL Neb INHALATION ×3 (08:23→20:53)
--- NOTE | 2020-01-08 09:52 | PM.PN ---
Subjective Subjective: Interval history: Chart reviewed, remains bradycardic with HRs in the 40-50 range. Had 500 mL urine output overnight, BP stable, afebrile, on 3 L NC. Renal impairment persists, stable Hg, resolved leukocytosis. Sitting in chair by bedside, no apparent distress, reports feeling better particularly in terms of respiration. Medications: Reviewed: Yes Medication Review Details: Active Medications Generic Name Dose Route Start Last Admin Trade Name Freq PRN Reason Stop Dose Admin Albuterol/Ipratrop ium 3 ml 01/07/20 21:28 Duoneb INHALATION Q6H PRN SHORTNESS OF YASMINE TH Albuterol/Ipratrop ium 3 ml 01/07/20 21:28 01/08/20 08:23 Duoneb INHALATION 3 ml Q6H.RESPIRATORY S CH Administration Atorvastatin Calci um 40 mg 01/08/20 09:00 01/08/20 08:12 Lipitor PO 40 mg DAILY HANNAH Administration Famotidine 20 mg 01/08/20 09:00 01/08/20 08:52 Pepcid Tab PO Not Given DAILY HANNAH Fluticasone Propio jay 1 spray 01/08/20 09:00 01/08/20 08:22 Flonase INTRANASAL Not Given DAILY HANNAH Heparin Sodium (Be ef Lung) 5,000 unit 01/07/20 21:28 01/08/20 05:56 Heparin SUBCUT 5,000 unit Q8H HANNAH Administration Levofloxacin/Dextr ose 750 mg in 150 mls @ 100 mls/hr 01/07/20 22:00 01/07/20 22:24 Levaquin-D5w IV 100 mls/hr Q24H HANNAH Administration Protocol Piperacillin Sod/T azobactam 50 mls @ 12.5 mls /hr 01/07/20 23:00 01/08/20 05:56 Sod 3.375 gm/ So dium Chloride IV 12.5 mls/hr Q8H HANNAH Administration Protocol Vancomycin HCl 1,5 00 mg/ 250 mls @ 166.667 mls/hr 01/07/20 22:30 01/07/20 23:46 Sodium Chloride IV 166.7 mls/hr Q24H HANNAH Administration Montelukast Sodium 10 mg 01/08/20 09:00 01/08/20 08:12 Singulair PO 10 mg DAILY HANNAH Administration Prednisone 40 mg 01/07/20 21:28 01/08/20 08:12 Prednisone PO 40 mg DAILY HANNAH Administration No Known Allergies Allergy (Verified 01/07/20 17:46) Vitals/I&O/Wt Last Vital Signs Temp 97.6 F 01/08/20 04:00 Pulse 49 L 01/08/20 08:26 Resp 16 01/08/20 08:23 BP 118/55 01/08/20 08:05 Pulse Ox 93 01/08/20 08:23 01/07/20 01/08/20 01/08/20 22:59 06:59 14:59 Intake Total 50 / 50 50 / 100 240 / 240 Output Total 500 / 500 Balance 50 / 50 -450 / -400 240 / 240 Weight last 48 hrs Weight 94.801 kg Weight 95.254 kg Physical Exam Const: COMMON NORMALS: no acute distress, patient oriented x3 and alert GENERAL APPEARANCE: cooperative and comfortable NUTRITIONAL APPEARANCE: obese morbidly obese ORIENTATION/CONSCIOUSNESS: Yes awake OTHER: -looks appropriate for age HENMT: COMMON NORMALS: normocephalic, atraumatic, hearing grossly normal bilaterally and moist oral mucous membranes HEAD & SCALP: normocephalic and atraumatic Eye: COMMON NORMALS: Equal, round and reactive pupils present, EOMs intact bilaterally and conjunctivae normal CONJUNCTIVA: Yes conjunctivae normal PUPIL: Yes Equal, round and reactive pupils present Neck/C-Spine: COMMON NORMALS: full ROM GENERAL: Yes normal visual inspection and Yes trachea midline Chest: CHEST: Yes Symmetrical chest wall rise Resp: COMMON NORMALS: normal respiratory effort, No retractions, No use of accessory muscles and clear to auscultation bilaterally EFFORT & INSPECTION: Yes able to speak in complete sentences, Yes symmetric chest movement and No tachypneic AUSCULTATION: clear to auscultation bilaterally OTHER: -on 3 L NC Cardio: COMMON NORMALS: regular rhythm, S1 normal heart sound present, S2 normal heart sound present and No murmurs present (Cardio) RATE: bradycardic RHYTHM: regular rhythm HEART SOUNDS: S1 normal heart sound present and S2 normal heart sound present GI: COMMON NORMALS: Normal to inspection, nondistended, normoactive bowel sounds present, Soft to palpation and non-tender INSPECTION: Yes central obesity PALPATION: Yes Soft to palpation Back/Pelvis: COMMON NORMALS: thoracic and lumbar spine normal to inspection Extremity: COMMON NORMALS: normal to inspection, full ROM, no clubbing, cyanosis or edema and no pedal edema Neuro: COMMON NORMALS: patient oriented x3, moves all extremities, no focal motor deficits and no sensory deficits noted SENSORIUM/ORIENTATION: Yes alert Psych: COMMON NORMALS: mental status grossly normal, Normal thought process present, cooperative, normal affect and speech normal SPEECH: Yes normal speech THOUGHT PROCESS: Normal thought process present Skin: COMMON NORMALS: no rashes or lesions noted, no jaundice, no petechiae and no mottling GENERAL SKIN EXAM: no rashes or lesions noted Data : 01/08/20 03:40 01/08/20 03:40 Micro: Microbiology 01/08/20 04:20 Gram Stain - Final Sputum - Expectorated Sputum 01/08/20 01:00 Legionella Urinary Antigen - Final Urine,Voided Bacterial Antigens - Final 01/07/20 17:43 Blood Culture - Preliminary Blood SPECIMEN COLLECTED 01/07/20 18:24 Blood Culture - Preliminary Blood SPECIMEN COLLECTED A&P Assessment and plan (1) AV heart block: -noted high grade AV block and bradycardia -BB on hold, had been on Coreg 6.25 mg BID -telemetry monitoring -HRs in the 40-50 range, BP stable; continue to monitor vital signs -Echo ordered, previous done in 03/2019 showed EF=49%, G1DD -Cardiology consult by Dr. Yadav appreciated -if persistent and symptomatic, may need pacemaker Status: Acute (2) Bradycardia: -noted above Status: Acute (3) HAZEL (acute kidney injury): -HAZEL on CKD stage 2 -baseline Cr wnl -worsening renal function, continue to monitor -avoid nephrotoxins, renally dose meds Status: Acute (4) COPD exacerbation: -acute COPD exacerbation; likely triggered by pneumonia -not oxygen dependent at baseline -continue to monitor respiratory status -on steroids, Neb treatments and antibiotics -supplemental oxygen as needed Status: Acute (5) Pneumonia: -recently diagnosed with community-acquired pneumonia, had been on treatment with levaquin -recently tested for COVID-19, negative -escalated abx coverage to include Vanc/Zosyn in addition to Levaquin -f/u blood cx -imaging reviewed -afebrile, resolved leukocytosis -sputum cx sent from PCP including mycobacterial smear; prelim negative for AFB. Sputum cx positive for Pseudomonas aeruginosa, sensitivity noted -repeat sputum cx pending, gram stain positive for GPC -bacterial antigens and Legionella negative Status: Acute Qualifiers: Laterality: bilateral Lung location: lower lobe of lung Pneumonia type: due to unspecified organism Qualified Code(s): J18.9 - Pneumonia, unspecified organism (6) CAD (coronary artery disease): -follows up with Dr. Florez -s/p CABG Status: Chronic Qualifiers: Associated angina: angina presence unspecified Coronary Disease-Associated Artery/Lesion type: [place] artery [place] vs. transplanted heart: [place] heart Qualified Code(s): I25.10 - Atherosclerotic heart disease of [place] coronary artery without angina pectoris (7) DARIUS (obstructive sleep apnea): -CPAP qhs Status: Chronic (8) CKD (chronic kidney disease) stage 2, GFR 60-89 ml/min: -as noted above Status: Chronic (9) Chronic anemia: -continue to monitor H/H Status: Acute (10) HTN (hypertension): -normotensive -continue to monitor vitals -Coreg on hold due to bradycardia; ACEi on hold due to renal impairment Status: Chronic Qualifiers: Hypertension type: essential hypertension Qualified Code(s): I10 - Essential (primary) hypertension (11) Non-insulin dependent diabetes mellitus: -check A1c -accuchecks, ISS, hypoglycemia precautions -hold metformin -anticipate hyperglycemia with steroid use and acute illness Status: Chronic (12) Obesity: -BMI-30 kg/m2 Status: Chronic Qualifiers: Body mass index: BMI 30.0-30.9 Obesity classification: adult class 1 (BMI 30 - 34.9) Obesity type: due to excess calories Serious obesity comorbidity presence: with serious comorbidity Qualified Code(s): E66.09 - Other obesity due to excess calories; Z68.30 - Body mass index (BMI) 30.0-30.9, adult Additional A&P Information -GI ppx with PPI -DVT ppx with heparin -Dispo: home -Code status: FULL code -ICU care due to need for close monitoring of HR due to high grade AV block Attestations Medical Necessity Statement*: Patient requires hospitalization for continued management of high-grade AV block with persistent bradycardia, continue treatment of pneumonia and acute COPD exacerbation. Time Spent in Patient Care: Greater than 35 minutes (>than 50% of time spent in counselling and/or direct pt care on unit). Coding Level of Care Code Acute Nutrition Therapist for Chg Fwd Exam Comprehensive Diagnoses AV heart block I44.30 Bradycardia R00.1 HAZEL (acute kidney injury) N17.9 COPD exacerbation J44.1 Pneumonia J18.9 Laterality: bilateral Lung location: lower lobe of lung Pneumonia type: due to unspecified organism CAD (coronary artery disease) I25.10 Associated angina: angina presence unspecified Coronary Disease-Associated Artery/Lesion type: [place] artery [place] vs. transplanted heart: [place] heart DARIUS (obstructive sleep apnea) G47.33 CKD (chronic kidney disease) stage 2, GFR 60-89 ml/min N18.2 Chronic anemia D64.9 HTN (hypertension) I10 Hypertension type: essential hypertension Non-insulin dependent diabetes mellitus Obesity E66.09; Z68.30 Body mass index: BMI 30.0-30.9 Obesity classification: adult class 1 (BMI 30 - 34.9) Obesity type: due to excess calories Serious obesity comorbidity presence: with serious comorbidity
[2020-01-08 11:24] LABS: Glucose Point of Care 151 mg/dL (70-110)
[2020-01-08] MEDS: pantoprazole DR 40 mg Tablet PO (12:02)
[2020-01-08 17:20] LABS: Glucose Point of Care 178 mg/dL (70-110)
[2020-01-08 20:05] LABS: Glucose Point of Care 178 mg/dL (70-110)
[2020-01-09] VITALS (21 sets, daily range): BP systolic 102–141; BP diastolic 35–62; PULSE 42–56; RESP 16–28; TEMP 36.9–37.3; O2SAT 89–97
[2020-01-09] MEDS: piperacillin-tazobactam 3.375 GM in sodium chloride 0.9% (plus) 50 ML IV ×3 (00:51→14:32)
[2020-01-09] MEDS: ipratropium-albuterol 3 mL Neb INHALATION ×4 (03:10→20:51)
[2020-01-09 05:06] LABS: Basophils % 0.1 %; Hematocrit 29.9 % (42.0-52.0); Hemoglobin 9.8 g/dL (11.7-16.6); Lymphocytes # 1.5 10^3/uL (0.8-4.8); Lymphocytes % 8.1 %; Mean Corpuscular HGB Conc 32.8 g/dL (30.0-36.0); Mean Corpuscular Hemoglobin 31.4 pg (28.0-34.0); Mean Corpuscular Volume 95.8 fL (80-94); Monocytes # 0.9 10^3/uL (0.2-0.9); Neutrophils % 86.3 %; Nucleated Red Blood Cells % 0 %; Platelet Count 213 10^3/cmm (130-400); Red Blood Count 3.12 10^6/uL (4.1-5.3); Red Cell Distribution Width 14.6 % (12.1-15.1); White Blood Count 18.6 10^3/uL (4.0-10.0)
[2020-01-09 05:30] LABS: Alanine Aminotransferase 26 U/L (0-41); Albumin Level 2.9 g/dL (3.5-5.2); Alkaline Phosphatase 115 IU/L (40-130); Anion Gap 15.4 (5-19); Aspartate Amino Transferase 19 U/L (0-40); Blood Urea Nitrogen 43 mg/dL (8-23); Calcium 8.5 mg/dL (8.5-10.5); Carbon Dioxide 22 mmol/L (22-29); Chloride 110 mmol/L (98-107); Globulin 2.6 g/dL (1.3-4.6); Glucose 137 mg/dL (65-115); Osmolality Calculated 296 mOsm/kg (285-295); Potassium 4.4 mmol/L (3.5-5.1); Sodium 143 mmol/L (136-145); Total Bilirubin 0.4 mg/dL (0.15-1.2); Total Protein 5.5 g/dL (6.6-8.7)
[2020-01-09] MEDS: heparin 5,000 unit/mL INJ 1 mL 5000 UNIT SUBCUT ×3 (05:30→20:23)
[2020-01-09 05:39] LABS: Thyroid Stimulating Hormone 1.68 uIU/mL (0.27-4.20)
[2020-01-09 08:28] LABS: Glucose Point of Care 121 mg/dL (70-110)
[2020-01-09] MEDS: atorvastatin 40 mg Tablet PO (09:01)
[2020-01-09] MEDS: predniSONE 20 mg Tablet 40 MG PO (09:01)
[2020-01-09] MEDS: pantoprazole DR 40 mg Tablet PO (09:01)
[2020-01-09] MEDS: montelukast sodium 10 mg Tablet PO (09:01)
[2020-01-09 09:44] LABS: Estmated Average Glucose 123; Hemoglobin A1C 5.9 % (4.0-6.0)
--- NOTE | 2020-01-09 09:59 | PC.RESP ---
Pulmonary Rehab information sent to patient.
[2020-01-09 11:41] LABS: Glucose Point of Care 129 mg/dL (70-110)
--- NOTE | 2020-01-09 15:41 | PM.PN ---
Subjective Subjective: Interval history: Remains bradycardic with HRs in the 40-50 range, asymptomatic, noted increased leukocytosos, likely steroid induced, afebrile, BP stable. On 2 L NC. Resting comfortably in bed, reports feeling better today. Case discussed with Dr. Florez, will continue antibiotic treatment and determine if need for pacemaker placement based on event monitoring findings. Medications: Reviewed: Yes Medication Review Details: Active Medications Generic Name Dose Route Start Last Admin Trade Name Freq PRN Reason Stop Dose Admin Albuterol/Ipratrop ium 3 ml 01/07/20 21:28 Duoneb INHALATION Q6H PRN SHORTNESS OF YASMINE TH Albuterol/Ipratrop ium 3 ml 01/07/20 21:28 01/09/20 15:26 Duoneb INHALATION 3 ml Q6H.RESPIRATORY S CH Administration Atorvastatin Calci um 40 mg 01/08/20 09:00 01/09/20 09:01 Lipitor PO 40 mg DAILY HANNAH Administration Dextrose 25 ml 01/08/20 10:05 D50w IVP ONCE PRN hypoglycemia prot ocol Protocol Dextrose 50 ml 01/08/20 10:05 D50w IVP PRN PRN hypoglycemia prot ocol Protocol Fluticasone Propio jay 1 spray 01/08/20 09:00 01/09/20 09:01 Flonase INTRANASAL Not Given DAILY HANNAH Glucagon 1 mg 01/08/20 10:05 Glucagen IM ONCE PRN Adult Acute Hypog lycemia Prot. Protocol Heparin Sodium (Be ef Lung) 5,000 unit 01/07/20 21:28 01/09/20 14:32 Heparin SUBCUT 5,000 unit Q8H HANNAH Administration Piperacillin Sod/T azobactam 50 mls @ 12.5 mls /hr 01/07/20 23:00 01/09/20 14:32 Sod 3.375 gm/ So dium Chloride IV 12.5 mls/hr Q8H HANNAH Administration Protocol Vancomycin HCl 1,5 00 mg/ 250 mls @ 166.667 mls/hr 01/07/20 22:30 01/08/20 23:14 Sodium Chloride IV 166.7 mls/hr Q24H HANNAH Administration Dextrose 500 mls @ 100 mls /hr 01/08/20 10:05 D5w IV ONCE PRN Adult Acute Hypog lycemia Prot Protocol Levofloxacin/Dextr ose 750 mg in 150 mls @ 100 mls/hr 01/09/20 22:30 Levaquin-D5w IV Q48H [facility] Protocol Insulin Aspart 0 unit 01/08/20 12:00 01/09/20 12:16 Novolog SUBCUT Not Given WM&BEDTIME HANNAH Protocol Montelukast Sodium 10 mg 01/08/20 09:00 01/09/20 09:01 Singulair PO 10 mg DAILY HANNAH Administration Pantoprazole Sodiu m 40 mg 01/08/20 10:15 01/09/20 09:01 Protonix PO 40 mg DAILY HANNAH Administration Prednisone 40 mg 01/07/20 21:28 01/09/20 09:01 Prednisone PO 40 mg DAILY HANNAH Administration No Known Allergies Allergy (Verified 01/07/20 17:46) Vitals/I&O/Wt Last Vital Signs Temp 98.5 F 01/09/20 09:00 Pulse 50 L 01/09/20 15:31 Resp 16 01/09/20 15:26 BP 111/35 01/09/20 09:00 Pulse Ox 93 01/09/20 15:26 01/09/20 01/09/20 01/09/20 06:59 14:59 22:59 Intake Total 410 / 900 450 / 450 Balance 410 / 675 450 / 450 Weight last 48 hrs Weight 94.619 kg Weight 94.801 kg Weight 95.254 kg Physical Exam Const: COMMON NORMALS: no acute distress, patient oriented x3 and alert GENERAL APPEARANCE: cooperative and comfortable NUTRITIONAL APPEARANCE: obese morbidly obese ORIENTATION/CONSCIOUSNESS: Yes awake OTHER: -looks appropriate for age HENMT: COMMON NORMALS: normocephalic, atraumatic, hearing grossly normal bilaterally and moist oral mucous membranes HEAD & SCALP: normocephalic and atraumatic Eye: COMMON NORMALS: Equal, round and reactive pupils present, EOMs intact bilaterally and conjunctivae normal CONJUNCTIVA: Yes conjunctivae normal PUPIL: Yes Equal, round and reactive pupils present Neck/C-Spine: COMMON NORMALS: full ROM GENERAL: Yes normal visual inspection and Yes trachea midline Chest: CHEST: Yes Symmetrical chest wall rise Resp: COMMON NORMALS: normal respiratory effort, No retractions, No use of accessory muscles and clear to auscultation bilaterally EFFORT & INSPECTION: Yes able to speak in complete sentences, Yes symmetric chest movement and No tachypneic AUSCULTATION: clear to auscultation bilaterally OTHER: -on 2 L NC Cardio: COMMON NORMALS: regular rhythm, S1 normal heart sound present, S2 normal heart sound present and No murmurs present (Cardio) RATE: bradycardic RHYTHM: regular rhythm HEART SOUNDS: S1 normal heart sound present and S2 normal heart sound present GI: COMMON NORMALS: Normal to inspection, nondistended, normoactive bowel sounds present, Soft to palpation and non-tender INSPECTION: Yes central obesity PALPATION: Yes Soft to palpation Back/Pelvis: COMMON NORMALS: thoracic and lumbar spine normal to inspection Extremity: COMMON NORMALS: normal to inspection, full ROM, no clubbing, cyanosis or edema and no pedal edema Neuro: COMMON NORMALS: patient oriented x3, moves all extremities, no focal motor deficits and no sensory deficits noted SENSORIUM/ORIENTATION: Yes alert Psych: COMMON NORMALS: mental status grossly normal, Normal thought process present, cooperative, normal affect and speech normal SPEECH: Yes normal speech THOUGHT PROCESS: Normal thought process present Skin: COMMON NORMALS: no rashes or lesions noted, no jaundice, no petechiae and no mottling GENERAL SKIN EXAM: no rashes or lesions noted Data : 01/09/20 04:15 01/09/20 04:15 Micro: Microbiology 01/07/20 17:43 Blood Culture - Preliminary Blood NEGATIVE TO DATE 01/07/20 18:24 Blood Culture - Preliminary Blood NEGATIVE TO DATE 01/07/20 21:55 MRSA Culture - Final Nose A&P Assessment and plan (1) AV heart block: -noted high grade AV block and bradycardia -BB on hold, had been on Coreg 6.25 mg BID -telemetry monitoring -HRs in the 40-50 range, BP stable; continue to monitor vital signs -Echo: EF=55%, G1DD, mild LVH, trace AR, mild-moderate MR, trace to mild TR; previous done in 03/2019 showed EF=49%, G1DD -Cardiology consult by Dr. Yadav appreciated -if persistent and symptomatic, may need pacemaker; anticipate discharge with event monitoring to allow for completion of antibiotic treatment course and resolution of pneumonia Status: Acute (2) Bradycardia: -noted above Status: Acute (3) HAZEL (acute kidney injury): -HAZEL on CKD stage 2 -baseline Cr wnl -worsening renal function, continue to monitor -avoid nephrotoxins, renally dose meds Status: Acute (4) COPD exacerbation: -acute COPD exacerbation; likely triggered by pneumonia -not oxygen dependent at baseline; may need home oxygen evaluation prior to d/c -continue to monitor respiratory status -on steroids, Neb treatments and antibiotics -supplemental oxygen as needed Status: Acute (5) Pneumonia: -recently diagnosed with community-acquired pneumonia, had been on treatment with levaquin -recently tested for COVID-19, negative -escalated abx coverage to include Vanc/Zosyn in addition to Levaquin -blood cx: prelim negative -imaging reviewed -afebrile, increased leukocytosis today which is likely steroid induced -sputum cx sent from PCP including mycobacterial smear; prelim negative for AFB. Sputum cx positive for Pseudomonas aeruginosa, sensitivity noted -repeat sputum cx pending, gram stain positive for GPC -bacterial antigens and Legionella negative Status: Acute Qualifiers: Laterality: bilateral Lung location: lower lobe of lung Pneumonia type: due to unspecified organism Qualified Code(s): J18.9 - Pneumonia, unspecified organism (6) CAD (coronary artery disease): -follows up with Dr. Florez -s/p CABG Status: Chronic Qualifiers: Associated angina: without angina Coronary Disease-Associated Artery/Lesion type: [place] artery [place] vs. transplanted heart: [place] heart Qualified Code(s): I25.10 - Atherosclerotic heart disease of [place] coronary artery without angina pectoris (7) DARIUS (obstructive sleep apnea): -CPAP qhs Status: Chronic (8) CKD (chronic kidney disease) stage 2, GFR 60-89 ml/min: -as noted above Status: Chronic (9) Chronic anemia: -continue to monitor H/H Status: Acute (10) HTN (hypertension): -normotensive -continue to monitor vitals -Coreg on hold due to bradycardia; ACEi on hold due to renal impairment Status: Chronic Qualifiers: Hypertension type: essential hypertension Qualified Code(s): I10 - Essential (primary) hypertension (11) Non-insulin dependent diabetes mellitus: -A1c-5.9 -accuchecks, ISS, hypoglycemia precautions -hold metformin -anticipate hyperglycemia with steroid use and acute illness Status: Chronic (12) Obesity: -BMI-30 kg/m2 Status: Chronic Qualifiers: Body mass index: BMI 30.0-30.9 Obesity classification: adult class 1 (BMI 30 - 34.9) Obesity type: due to excess calories Serious obesity comorbidity presence: with serious comorbidity Qualified Code(s): E66.09 - Other obesity due to excess calories; Z68.30 - Body mass index (BMI) 30.0-30.9, adult Additional A&P Information -GI ppx with PPI -DVT ppx with heparin -Dispo: home -Code status: FULL code -can transfer to CSU if bed available. Attestations Medical Necessity Statement*: Patient requires hospitalization for continued treatment of pneumonia, management of bradycardia. Time Spent in Patient Care: 16 - 35 minutes (>than 50% of time spent in counselling and/or direct pt care on unit). Coding Level of Care Code Acute [employer] Checker for g Fwd Exam Comprehensive Diagnoses AV heart block I44.30 Bradycardia R00.1 HAZEL (acute kidney injury) N17.9 COPD exacerbation J44.1 Pneumonia J18.9 Laterality: bilateral Lung location: lower lobe of lung Pneumonia type: due to unspecified organism CAD (coronary artery disease) I25.10 Associated angina: without angina Coronary Disease-Associated Artery/Lesion type: [place] artery [place] vs. transplanted heart: [place] heart DARIUS (obstructive sleep apnea) G47.33 CKD (chronic kidney disease) stage 2, GFR 60-89 ml/min N18.2 Chronic anemia D64.9 HTN (hypertension) I10 Hypertension type: essential hypertension Non-insulin dependent diabetes mellitus Obesity E66.09; Z68.30 Body mass index: BMI 30.0-30.9 Obesity classification: adult class 1 (BMI 30 - 34.9) Obesity type: due to excess calories Serious obesity comorbidity presence: with serious comorbidity
[2020-01-09 17:07] LABS: Glucose Point of Care 151 mg/dL (70-110)
--- NOTE | 2020-01-09 18:04 | P.PN_ITS ---
Subjective Subjective: Interval history: Please note that this note was for 01/08/2020 Heart rate remains into 40s and low 50s with A-V dissociation and junctional escape. Is stable vital chapin Medications: Reviewed: Yes Medication Review Details: Active Medications Generic Name Dose Route Start Last Admin Trade Name Freq PRN Reason Stop Dose Admin Albuterol/Ipratrop ium 3 ml 01/07/20 21:28 Duoneb INHALATION Q6H PRN SHORTNESS OF YASMINE TH Albuterol/Ipratrop ium 3 ml 01/07/20 21:28 01/09/20 15:26 Duoneb INHALATION 3 ml Q6H.RESPIRATORY S CH Administration Atorvastatin Calci um 40 mg 01/08/20 09:00 01/09/20 09:01 Lipitor PO 40 mg DAILY HANNAH Administration Dextrose 25 ml 01/08/20 10:05 D50w IVP ONCE PRN hypoglycemia prot ocol Protocol Dextrose 50 ml 01/08/20 10:05 D50w IVP PRN PRN hypoglycemia prot ocol Protocol Fluticasone Propio jay 1 spray 01/08/20 09:00 01/09/20 09:01 Flonase INTRANASAL Not Given DAILY HANNAH Glucagon 1 mg 01/08/20 10:05 Glucagen IM ONCE PRN Adult Acute Hypog lycemia Prot. Protocol Heparin Sodium (Be ef Lung) 5,000 unit 01/07/20 21:28 01/09/20 14:32 Heparin SUBCUT 5,000 unit Q8H HANNAH Administration Piperacillin Sod/T azobactam 50 mls @ 12.5 mls /hr 01/07/20 23:00 01/09/20 14:32 Sod 3.375 gm/ So dium Chloride IV 12.5 mls/hr Q8H HANNAH Administration Protocol Vancomycin HCl 1,5 00 mg/ 250 mls @ 166.667 mls/hr 01/07/20 22:30 01/08/20 23:14 Sodium Chloride IV 166.7 mls/hr Q24H HANNAH Administration Dextrose 500 mls @ 100 mls /hr 01/08/20 10:05 D5w IV ONCE PRN Adult Acute Hypog lycemia Prot Protocol Levofloxacin/Dextr ose 750 mg in 150 mls @ 100 mls/hr 01/09/20 22:30 Levaquin-D5w IV Q48H [facility]ANNAH Protocol Insulin Aspart 0 unit 01/08/20 12:00 01/09/20 12:16 Novolog SUBCUT Not Given WM&BEDTIME [facility] Protocol Montelukast Sodium 10 mg 01/08/20 09:00 01/09/20 09:01 Singulair PO 10 mg DAILY HANNAH Administration Pantoprazole Sodiu m 40 mg 01/08/20 10:15 01/09/20 09:01 Protonix PO 40 mg DAILY HANNAH Administration Prednisone 40 mg 01/07/20 21:28 01/09/20 09:01 Prednisone PO 40 mg DAILY HANANH Administration No Known Allergies Allergy (Verified 01/07/20 17:46) Vitals/I&O/Wt Last Vital Signs Temp 98.5 F 01/09/20 09:00 Pulse 50 L 01/09/20 15:31 Resp 16 01/09/20 15:26 BP 111/35 01/09/20 09:00 Pulse Ox 93 01/09/20 15:26 01/09/20 01/09/20 01/09/20 06:59 14:59 22:59 Intake Total 410 / 900 450 / 450 Balance 410 / 675 450 / 450 Weight last 48 hrs Weight 208 lb 9.6 oz Weight 209 lb Physical Exam Narrative: EXAM NARRATIVE: GENERAL: Patient is intubated and sedated NECK: No jugular vein distension. HEENT: No cyanosis. No icterus. pallor. HEART: Regular S1 and S2. No murmur, rub or gallop. LUNGS: Decreased breath mild inspiratory crackles bilaterally. ABDOMEN: Soft, nontender and nondistended. Positive bowel sounds. No guarding, rebound or tenderness. 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 Data : 01/09/20 04:15 01/09/20 04:15 Micro: Microbiology 01/08/20 04:20 Gram Stain - Final Sputum - Expectorated Sputum Sputum Culture - Preliminary 01/07/20 17:43 Blood Culture - Preliminary Blood NEGATIVE TO DATE 01/07/20 18:24 Blood Culture - Preliminary Blood NEGATIVE TO DATE 01/07/20 21:55 MRSA Culture - Final Nose A&P Assessment and plan (1) AV heart block: Patient has A-V dissociation with complete heart block junctional escape however heart rate remains into 40s and low 50s. He has not improved in the last few days. He has underlying chest and urine tract infection. For now we will continue to monitor him since he is stable once he will be infection free with improving blood test we will proceed with dual-chamber pacemaker if rhythm persist. Status: Acute (2) Hypoxia: COPD exacerbation. Continue management as per medicine Status: Acute (3) CAD (coronary artery disease): Stable from a coronary disease perspective. Continue medicine Status: Chronic Qualifiers: Coronary Disease-Associated Artery/Lesion type: [place] artery [place] vs. transplanted heart: [place] heart Associated angina: without angina Qualified Code(s): I25.10 - Atherosclerotic heart disease of [place] coronary artery without angina pectoris (4) Congestive heart failure: Well compensated continue medicine Status: Acute Qualifiers: Heart failure type: diastolic Heart failure chronicity: chronic Qualified Code(s): I50.32 - Chronic diastolic (congestive) heart failure (5) COPD (chronic obstructive pulmonary disease): Status: Acute Qualifiers: COPD type: unspecified COPD Qualified Code(s): J44.9 - Chronic obstructive pulmonary disease, unspecified (6) HAZEL (acute kidney injury): Continue to monitor appeared to be stable Status: Acute (7) Pneumonia: On broad spectrum antibiotics. Status: Acute Qualifiers: Pneumonia type: due to unspecified organism Laterality: bilateral Lung location: lower lobe of lung Qualified Code(s): J18.9 - Pneumonia, unspecified organism Additional A&P Information history of DARIUS on CPAP Attestations Medical Necessity Statement*: As per medicine Coding Level of Care Code Established Pt Acute [employer] Operator for [facility] Fwd Patient Type Established Medical Decision Making Moderate Complexity Diagnoses AV heart block I44.30 Hypoxia R09.02 CAD (coronary artery disease) I25.10 Coronary Disease-Associated Artery/Lesion type: [place] artery [place] vs. transplanted heart: [place] heart Associated angina: without angina Congestive heart failure I50.32 Heart failure type: diastolic Heart failure chronicity: chronic COPD (chronic obstructive pulmonary disease) J44.9 COPD type: unspecified COPD HAZEL (acute kidney injury) N17.9 Pneumonia J18.9 Pneumonia type: due to unspecified organism Laterality: bilateral Lung location: lower lobe of lung
--- NOTE | 2020-01-09 18:16 | P.PN_ITS ---
Subjective Subjective: Interval history: Heart rate in 40s and lower 50s. Denies any complaint. Medications: Reviewed: Yes Medication Review Details: Active Medications Generic Name Dose Route Start Last Admin Trade Name Freq PRN Reason Stop Dose Admin Albuterol/Ipratrop ium 3 ml 01/07/20 21:28 Duoneb INHALATION Q6H PRN SHORTNESS OF YASMINE TH Albuterol/Ipratrop ium 3 ml 01/07/20 21:28 01/09/20 15:26 Duoneb INHALATION 3 ml Q6H.RESPIRATORY S CH Administration Atorvastatin Calci um 40 mg 01/08/20 09:00 01/09/20 09:01 Lipitor PO 40 mg DAILY HANNAH Administration Dextrose 25 ml 01/08/20 10:05 D50w IVP ONCE PRN hypoglycemia prot ocol Protocol Dextrose 50 ml 01/08/20 10:05 D50w IVP PRN PRN hypoglycemia prot ocol Protocol Fluticasone Propio jay 1 spray 01/08/20 09:00 01/09/20 09:01 Flonase INTRANASAL Not Given DAILY HANNAH Glucagon 1 mg 01/08/20 10:05 Glucagen IM ONCE PRN Adult Acute Hypog lycemia Prot. Protocol Heparin Sodium (Be ef Lung) 5,000 unit 01/07/20 21:28 01/09/20 14:32 Heparin SUBCUT 5,000 unit Q8H HANNAH Administration Piperacillin Sod/T azobactam 50 mls @ 12.5 mls /hr 01/07/20 23:00 01/09/20 14:32 Sod 3.375 gm/ So dium Chloride IV 12.5 mls/hr Q8H HANNAH Administration Protocol Vancomycin HCl 1,5 00 mg/ 250 mls @ 166.667 mls/hr 01/07/20 22:30 01/08/20 23:14 Sodium Chloride IV 166.7 mls/hr Q24H HANNAH Administration Dextrose 500 mls @ 100 mls /hr 01/08/20 10:05 D5w IV ONCE PRN Adult Acute Hypog lycemia Prot Protocol Levofloxacin/Dextr ose 750 mg in 150 mls @ 100 mls/hr 01/09/20 22:30 Levaquin-D5w IV Q48H HANNAH Protocol Insulin Aspart 0 unit 01/08/20 12:00 01/09/20 12:16 Novolog SUBCUT Not Given WM&BEDTIME HANNAH Protocol Montelukast Sodium 10 mg 01/08/20 09:00 01/09/20 09:01 Singulair PO 10 mg DAILY HANNAH Administration Pantoprazole Sodiu m 40 mg 01/08/20 10:15 01/09/20 09:01 Protonix PO 40 mg DAILY HANNAH Administration Prednisone 40 mg 01/07/20 21:28 01/09/20 09:01 Prednisone PO 40 mg DAILY HANNAH Administration No Known Allergies Allergy (Verified 01/07/20 17:46) Vitals/I&O/Wt Last Vital Signs Temp 98.5 F 01/09/20 09:00 Pulse 50 L 01/09/20 15:31 Resp 16 01/09/20 15:26 BP 111/35 01/09/20 09:00 Pulse Ox 93 01/09/20 15:26 01/09/20 01/09/20 01/09/20 06:59 14:59 22:59 Intake Total 410 / 900 450 / 450 Balance 410 / 675 450 / 450 Weight last 48 hrs Weight 208 lb 9.6 oz Weight 209 lb Physical Exam Narrative: EXAM NARRATIVE: GENERAL: Patient is intubated and sedated NECK: No jugular vein distension. HEENT: No cyanosis. No icterus. pallor. HEART: Regular S1 and S2. No murmur, rub or gallop. LUNGS: Decreased breath mild inspiratory crackles bilaterally. ABDOMEN: Soft, nontender and nondistended. Positive bowel sounds. No guarding, rebound or tenderness. 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 Data : 01/09/20 04:15 01/09/20 04:15 Micro: Microbiology 01/08/20 04:20 Gram Stain - Final Sputum - Expectorated Sputum Sputum Culture - Preliminary 01/07/20 17:43 Blood Culture - Preliminary Blood NEGATIVE TO DATE 01/07/20 18:24 Blood Culture - Preliminary Blood NEGATIVE TO DATE 01/07/20 21:55 MRSA Culture - Final Nose A&P Assessment and plan (1) AV heart block: Patient has A-V dissociation with complete heart block junctional escape however heart rate remains into 40s and low 50s. He has not improved in the last few days. He has underlying chest and urine tract infection. For now we will continue to monitor him since he is stable once he will be infection free with improving blood test we will proceed with dual-chamber pacemaker if rhythm persist. As we discussed yesterday we will continue to monitor him. So far there is no h emodynamically significant bradycardia noted. Patient is in sinus rhythm with A-V dissociation and junctional block. Once patient will be infection free we will then proceed with pacemaker placement Status: Acute (2) Hypoxia: Pneumonia/COPD exacerbation continue as per medicine treatment Status: Acute (3) CAD (coronary artery disease): Stable from a coronary disease perspective. Continue medicine Status: Chronic Qualifiers: Coronary Disease-Associated Artery/Lesion type: [place] artery [place] vs. transplanted heart: [place] heart Associated angina: without angina Qualified Code(s): I25.10 - Atherosclerotic heart disease of [place] coronary artery without angina pectoris (4) Congestive heart failure: Continue to be well compensated. Continue Status: Acute Qualifiers: Heart failure chronicity: chronic Heart failure type: diastolic Qualified Code(s): I50.32 - Chronic diastolic (congestive) heart failure (5) HAZEL (acute kidney injury): Continue to monitor appeared to be stable Status: Acute (6) Pneumonia: On broad spectrum antibiotics. Status: Acute Qualifiers: Pneumonia type: due to unspecified organism Laterality: bilateral Lung location: lower lobe of lung Qualified Code(s): J18.9 - Pneumonia, unspecified organism Additional A&P Information history of DARIUS on CPAP Attestations Medical Necessity Statement*: Require continuation hospitalization for above defined care. 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 transplanted heart: [place] heart Associated angina: without angina Congestive heart failure I50.32 Heart failure chronicity: chronic Heart failure type: diastolic HAZEL (acute kidney injury) N17.9 Pneumonia J18.9 Pneumonia type: due to unspecified organism Laterality: bilateral Lung location: lower lobe of lung
--- NOTE | 2020-01-09 19:52 | PC.NURSE ---
patient is watching tv, denies any cp or discomfort. tele shows bradycardia with 2 degreee av block noted. iv is patent with zosyn infusing at this time. lungs are whezzy bilateral and diminished in bases. bs are positive all 4 quads. pedal pulse positive bilateral and palpable. on the phone at this time talking with family.
[2020-01-09 20:06] LABS: Glucose Point of Care 200 mg/dL (70-110)
[2020-01-09 20:56] LABS: Vancomycin Trough 12.8 ug/mL (10-15)
--- NOTE | 2020-01-09 22:24 | PC.NURSE ---
report called to Guerda ELMORE on CSU patient moved to room 112 bed 1. by wheelchair. all belongings with patient.
[2020-01-09] MEDS: levofloxacin-dextrose 5 % 750 MG/150 ML PREMIX 100 MG IV (22:45)
[2020-01-10] VITALS (17 sets, daily range): BP systolic 99–139; BP diastolic 43–69; PULSE 46–69; RESP 17–27; TEMP 36.3–36.8; O2SAT 90–98
[2020-01-10] MEDS: piperacillin-tazobactam 3.375 GM in sodium chloride 0.9% (plus) 50 ML IV ×4 (02:00→23:43)
--- NOTE | 2020-01-10 02:10 | PC.NURSE ---
Patients Vancomycin, Zoysn and levofloxcin late due to being scheduled at the same time and one IV access.
--- NOTE | 2020-01-10 04:59 | PC.NURSE ---
End of shift: Patient remains alert and oriented. Patient denies any complaints. Patient has rested well and had a uneventful shift. Will continue to monitor.
[2020-01-10 06:03] LABS: Basophils % 0.1 %; Hematocrit 28.5 % (42.0-52.0); Hemoglobin 9.1 g/dL (11.7-16.6); Lymphocytes # 1.4 10^3/uL (0.8-4.8); Lymphocytes % 8.6 %; Mean Corpuscular HGB Conc 31.9 g/dL (30.0-36.0); Mean Corpuscular Volume 96.9 fL (80-94); Mean Platelet Volume 10.7 fL (7.4-10.4); Monocytes # 0.8 10^3/uL (0.2-0.9); Monocytes % 4.5 %; Neutrophils # 14.4 10^3/uL (1.8-7.7); Neutrophils % 86.1 %; Nucleated Red Blood Cells % 0 %; Platelet Count 199 10^3/cmm (130-400); Red Blood Count 2.94 10^6/uL (4.1-5.3); Red Cell Distribution Width 14.9 % (12.1-15.1); White Blood Count 16.7 10^3/uL (4.0-10.0)
[2020-01-10 06:19] LABS: Alanine Aminotransferase 33 U/L (0-41); Alkaline Phosphatase 105 IU/L (40-130); Anion Gap 11.4 (5-19); Aspartate Amino Transferase 24 U/L (0-40); Blood Urea Nitrogen 36 mg/dL (8-23); Calcium 8.5 mg/dL (8.5-10.5); Carbon Dioxide 23 mmol/L (22-29); Chloride 114 mmol/L (98-107); Globulin 2.3 g/dL (1.3-4.6); Glucose 128 mg/dL (65-115); Osmolality Calculated 297 mOsm/kg (285-295); Potassium 4.4 mmol/L (3.5-5.1); Sodium 144 mmol/L (136-145); Total Bilirubin 0.3 mg/dL (0.15-1.2); Total Protein 5.3 g/dL (6.6-8.7)
[2020-01-10 06:27] LABS: Glucose Point of Care 125 mg/dL (70-110)
[2020-01-10] MEDS: heparin 5,000 unit/mL INJ 1 mL 5000 UNIT SUBCUT ×2 (06:32→13:02)
--- NOTE | 2020-01-10 06:50 | PC.NURSE ---
2 nurse, bedside report on patient. Patient resting comfortably, no new requests at this time.
--- NOTE | 2020-01-10 08:14 | PC.NURSE ---
patient offered mask. Patient refused mask at this time. Nurse to continue to monitor.
--- NOTE | 2020-01-10 08:40 | PC.SOCIAL ---
IMM Page 2 of IMM explained to patient. Initialed, dated, and timed and placed in chart. Copy provided to patient.
[2020-01-10] MEDS: predniSONE 20 mg Tablet 40 MG PO (09:01)
[2020-01-10] MEDS: pantoprazole DR 40 mg Tablet PO (09:01)
[2020-01-10] MEDS: montelukast sodium 10 mg Tablet PO (09:01)
[2020-01-10] MEDS: atorvastatin 40 mg Tablet PO (09:02)
[2020-01-10] MEDS: ipratropium-albuterol 3 mL Neb INHALATION ×3 (09:11→21:45)
--- NOTE | 2020-01-10 10:28 | P.PN_ITS ---
Subjective Subjective: Interval history: Remains bradycardic with HRs in the 40-50 range, asymptomatic, decreasing leukocytosis from 18.6->16.7, stable hemoglobin, improved renal function. Otherwise hemodynamically stable, afebrile, remains on 2 L nasal cannula. Had 400 mL urine output overnight. Seems more fatigued and is more coarse and wheezy today. Later in the afternoon, noted to have some hemoptysis; will continue to monitor this. Medications: Reviewed: Yes Medication Review Details: Active Medications Generic Name Dose Route Start Last Admin Trade Name Freq PRN Reason Stop Dose Admin Albuterol/Ipratrop ium 3 ml 01/07/20 21:28 Duoneb INHALATION Q6H PRN SHORTNESS OF YASMINE TH Albuterol/Ipratrop ium 3 ml 01/07/20 21:28 01/10/20 09:11 Duoneb INHALATION 3 ml Q6H.RESPIRATORY S CH Administration Atorvastatin Calci um 40 mg 01/08/20 09:00 01/10/20 09:02 Lipitor PO 40 mg DAILY HANNAH Administration Dextrose 25 ml 01/08/20 10:05 D50w IVP ONCE PRN hypoglycemia prot ocol Protocol Dextrose 50 ml 01/08/20 10:05 D50w IVP PRN PRN hypoglycemia prot ocol Protocol Fluticasone Propio jay 1 spray 01/08/20 09:00 01/10/20 09:06 Flonase INTRANASAL Not Given DAILY HANNAH Glucagon 1 mg 01/08/20 10:05 Glucagen IM ONCE PRN Adult Acute Hypog lycemia Prot. Protocol Heparin Sodium (Be ef Lung) 5,000 unit 01/07/20 21:28 01/10/20 06:32 Heparin SUBCUT 5,000 unit Q8H HANNAH Administration Piperacillin Sod/T azobactam 50 mls @ 12.5 mls /hr 01/07/20 23:00 01/10/20 07:41 Sod 3.375 gm/ So dium Chloride IV 12.5 mls/hr Q8H HANNAH Administration Protocol Vancomycin HCl 1,5 00 mg/ 250 mls @ 166.667 mls/hr 01/07/20 22:30 01/10/20 02:56 Sodium Chloride IV Infused Q24H HANNAH Infusion Dextrose 500 mls @ 100 mls /hr 01/08/20 10:05 D5w IV ONCE PRN Adult Acute Hypog lycemia Prot Protocol Levofloxacin/Dextr ose 750 mg in 150 mls @ 100 mls/hr 01/09/20 22:30 01/10/20 01:17 Levaquin-D5w IV Infused Q48H HANNAH Infusion Protocol Insulin Aspart 0 unit 01/08/20 12:00 01/10/20 07:32 Novolog SUBCUT Not Given WM&BEDTIME HANNAH Protocol Montelukast Sodium 10 mg 01/08/20 09:00 01/10/20 09:01 Singulair PO 10 mg DAILY HANNAH Administration Pantoprazole Sodiu m 40 mg 01/08/20 10:15 01/10/20 09:01 Protonix PO 40 mg DAILY HANNAH Administration Prednisone 40 mg 01/07/20 21:28 01/10/20 09:01 Prednisone PO 40 mg DAILY HANNAH Administration No Known Allergies Allergy (Verified 01/07/20 17:46) Vitals/I&O/Wt Last Vital Signs Temp 97.9 F 01/10/20 07:39 Pulse 49 L 01/10/20 09:29 Resp 22 H 01/10/20 09:19 BP 113/52 01/10/20 07:39 Pulse Ox 94 01/10/20 09:19 01/09/20 01/10/20 01/10/20 22:59 06:59 14:59 Intake Total 1040 / 1490 800 / 2290 480 / 480 Output Total 700 / 700 Balance 340 / 790 800 / 1590 480 / 480 Weight last 48 hrs Weight 95.85 kg Weight 94.619 kg Physical Exam Const: COMMON NORMALS: no acute distress, patient oriented x3 and alert GENERAL APPEARANCE: cooperative and comfortable NUTRITIONAL APPEARANCE: obese morbidly obese ORIENTATION/CONSCIOUSNESS: Yes awake OTHER: -looks appropriate for age; fatigued HENMT: COMMON NORMALS: normocephalic, atraumatic, hearing grossly normal bilaterally and moist oral mucous membranes HEAD & SCALP: normocephalic and atraumatic Eye: COMMON NORMALS: Equal, round and reactive pupils present, EOMs intact bilaterally and conjunctivae normal CONJUNCTIVA: Yes conjunctivae normal PUPIL: Yes Equal, round and reactive pupils present Neck/C-Spine: COMMON NORMALS: full ROM GENERAL: Yes normal visual inspection and Yes trachea midline Chest: CHEST: Yes Symmetrical chest wall rise Resp: COMMON NORMALS: normal respiratory effort, No retractions, No use of accessory muscles and clear to auscultation bilaterally EFFORT & INSPECTION: Yes able to speak in complete sentences, Yes symmetric chest movement and No tachypneic AUSCULTATION: clear to auscultation bilaterally OTHER: -on 2.5 L NC Cardio: COMMON NORMALS: regular rhythm, S1 normal heart sound present, S2 normal heart sound present and No murmurs present (Cardio) RATE: bradycardic RHYTHM: regular rhythm HEART SOUNDS: S1 normal heart sound present and S2 n ormal heart sound present GI: COMMON NORMALS: Normal to inspection, nondistended, normoactive bowel sounds present, Soft to palpation and non-tender INSPECTION: Yes central obesity PALPATION: Yes Soft to palpation Back/Pelvis: COMMON NORMALS: thoracic and lumbar spine normal to inspection Extremity: COMMON NORMALS: normal to inspection, full ROM, no clubbing, cyanosis or edema and no pedal edema Neuro: COMMON NORMALS: patient oriented x3, moves all extremities, no focal motor deficits and no sensory deficits noted SENSORIUM/ORIENTATION: Yes alert Psych: COMMON NORMALS: mental status grossly normal, Normal thought process present, cooperative, normal affect and speech normal SPEECH: Yes normal speech THOUGHT PROCESS: Normal thought process present Skin: COMMON NORMALS: no rashes or lesions noted, no jaundice, no petechiae and no mottling GENERAL SKIN EXAM: no rashes or lesions noted Data : 01/10/20 05:35 01/10/20 05:35 Micro: Microbiology 01/08/20 04:20 Gram Stain - Final Sputum - Expectorated Sputum Sputum Culture - Preliminary A&P Assessment and plan (1) Pneumonia: -recently diagnosed with community-acquired pneumonia, had been on treatment with levaquin -recently tested for COVID-19, negative -on Zosyn, Levaquin, will d/c Vanc as MRSA negative; continue to narrow spectrum with clinical improvement -blood cx: prelim negative -imaging reviewed -afebrile, increased leukocytosis today which is likely steroid induced -sputum cx sent from PCP including mycobacterial smear; prelim negative for AFB. Sputum cx positive for Pseudomonas aeruginosa, sensitivity noted -repeat sputum cx-mixed christiano, gram stain positive for GPC -bacterial antigens and Legionella negative -some hemoptysis noted today, will need to continue to monitor H/H and hold AC; INR-1.04 Status: Acute Qualifiers: Laterality: bilateral Lung location: lower lobe of lung Pneumonia type: due to unspecified organism Qualified Code(s): J18.9 - Pneumonia, u nspecified organism (2) AV heart block: -noted high grade AV block and bradycardia -BB on hold, had been on Coreg 6.25 mg BID -telemetry monitoring -HRs in the 40-50 range, BP stable; continue to monitor vital signs -Echo: EF=55%, G1DD, mild LVH, trace AR, mild-moderate MR, trace to mild TR; previous done in 03/2019 showed EF=49%, G1DD -Cardiology consult by Dr. Yadav and Dr. Florez appreciated -if persistent and symptomatic, may need pacemaker; anticipate discharge with event monitoring to allow for completion of antibiotic treatment course and resolution of pneumonia Status: Acute (3) Bradycardia: -noted above Status: Acute (4) HAZEL (acute kidney injury): -HAZEL on CKD stage 2 -baseline Cr wnl -improving renal function, continue to monitor -avoid nephrotoxins, renally dose meds Status: Acute (5) COPD exacerbation: -acute COPD exacerbation; likely triggered by pneumonia -not oxygen dependent at baseline; may need home oxygen evaluation prior to d/c -continue to monitor respiratory status -on steroids, Neb treatments and antibiotics -supplemental oxygen as needed Status: Acute (6) CAD (coronary artery disease): -follows up with Dr. Florez -s/p CABG Status: Chronic Qualifiers: Associated angina: without angina Coronary Disease-Associated Artery/Lesion type: [place] artery [place] vs. transplanted heart: [place] heart Qualified Code(s): I25.10 - Atherosclerotic heart disease of [place] coronary [place] without angina pectoris (7) DARIUS (obstructive sleep apnea): -CPAP qhs Status: Chronic (8) CKD (chronic kidney disease) stage 2, GFR 60-89 ml/min: -as noted above Status: Chronic (9) Chronic anemia: -continue to monitor H/H Status: Acute (10) HTN (hypertension): -normotensive -continue to monitor vitals -Coreg on hold due to bradycardia; ACEi on hold due to renal impairment Status: Chronic Qualifiers: Hypertension type: essential hypertension Qualified Code(s): I10 - Essential (primary) hypertension (11) Non-insulin dependent diabetes mellitus: -A1c-5.9 -accuchecks, ISS, hypoglycemia precautions -hold metformin -anticipate hyperglycemia with steroid use and acute illness Status: Chronic (12) Obesity: -BMI-30 kg/m2 Status: Chronic Qualifiers: Body mass index: BMI 30.0-30.9 Obesity classification: adult class 1 (BMI 30 - 34.9) Obesity type: due to excess calories Serious obesity comorbidity presence: with serious comorbidity Qualified Code(s): E66.09 - Other obesity due to excess calories; Z68.30 - Body mass index (BMI) 30.0-30.9, adult Additional A&P Information -GI ppx with PPI -DVT ppx with heparin; hold this due to hemoptysis -Dispo: home -Code status: FULL code Attestations Medical Necessity Statement*: Patient requires hospitalization for continued treatment of pneumonia, remains on oxygen support with leukocytosis; as well as management of bradycardia with AV block. Time Spent in Patient Care: 16 - 35 minutes (>than 50% of time spent in counselling and/or direct pt care on unit) . Coding Level of Care Code Acute Scheduling Manager for Chg Fwd Exam Comprehensive Diagnoses Pneumonia J18.9 Laterality: bilateral Lung location: lower lobe of lung Pneumonia type: due to unspecified organism AV heart block I44.30 Bradycardia R00.1 HAZEL (acute kidney injury) N17.9 COPD exacerbation J44.1 CAD (coronary artery disease) I25.10 Associated angina: without angina Coronary Disease-Associated Artery/Lesion type: [place] artery [place] vs. transplanted heart: [place] heart DARIUS (obstructive sleep apnea) G47.33 CKD (chronic kidney disease) stage 2, GFR 60-89 ml/min N18.2 Chronic anemia D64.9 HTN (hypertension) I10 Hypertension type: essential hypertension Non-insulin dependent diabetes mellitus Obesity E66.09; Z68.30 Body mass index: BMI 30.0-30.9 Obesity classification: adult class 1 (BMI 30 - 34.9) Obesity type: due to excess calories Serious obesity comorbidity presence: with serious comorbidity
[2020-01-10 11:33] LABS: Glucose Point of Care 125 mg/dL (70-110)
[2020-01-10] MEDS: budesonide 0.5 mg/2 mL Neb 0.25 MG INHALATION ×2 (12:53→21:46)
--- NOTE | 2020-01-10 16:05 | PC.NURSE ---
Nurse called to bedside. Upon entering room, patient was holding a tissue with bloody sputum. Nurse assessed airway and nares, airway patent and no active bleed noted. VS stable. Dr. Caba notified and an image of sputum sent in secure messaging. No further interventions at this time. Nurse to continue to monitor.
[2020-01-10 16:19] LABS: Glucose Point of Care 209 mg/dL (70-110)
--- NOTE | 2020-01-10 18:47 | P.PN_ITS ---
Subjective Subjective: Interval history: Heart rate remains stable, patient remains in high degree heart block Medications: Reviewed: Yes Medication Review Details: Active Medications Generic Name Dose Route Start Last Admin Trade Name Freq PRN Reason Stop Dose Admin Albuterol/Ipratrop ium 3 ml 01/07/20 21:28 Duoneb INHALATION Q6H PRN SHORTNESS OF YASMINE TH Albuterol/Ipratrop ium 3 ml 01/07/20 21:28 01/10/20 09:11 Duoneb INHALATION 3 ml Q6H.RESPIRATORY S CH Administration Atorvastatin Calci um 40 mg 01/08/20 09:00 01/10/20 09:02 Lipitor PO 40 mg DAILY HANNAH Administration Dextrose 25 ml 01/08/20 10:05 D50w IVP ONCE PRN hypoglycemia prot ocol Protocol Dextrose 50 ml 01/08/20 10:05 D50w IVP PRN PRN hypoglycemia prot ocol Protocol Fluticasone Propio jay 1 spray 01/08/20 09:00 01/10/20 09:06 Flonase INTRANASAL Not Given DAILY HANNAH Glucagon 1 mg 01/08/20 10:05 Glucagen IM ONCE PRN Adult Acute Hypog lycemia Prot. Protocol Heparin Sodium (Be ef Lung) 5,000 unit 01/07/20 21:28 01/10/20 06:32 Heparin SUBCUT 5,000 unit Q8H HANNAH Administration Piperacillin Sod/T azobactam 50 mls @ 12.5 mls /hr 01/07/20 23:00 01/10/20 07:41 Sod 3.375 gm/ So dium Chloride IV 12.5 mls/hr Q8H HANNAH Administration Protocol Vancomycin HCl 1,5 00 mg/ 250 mls @ 166.667 mls/hr 01/07/20 22:30 01/10/20 02:56 Sodium Chloride IV Infused Q24H HANNAH Infusion Dextrose 500 mls @ 100 mls /hr 01/08/20 10:05 D5w IV ONCE PRN Adult Acute Hypog lycemia Prot Protocol Levofloxacin/Dextr ose 750 mg in 150 mls @ 100 mls/hr 01/09/20 22:30 01/10/20 01:17 Levaquin-D5w IV Infused Q48H HANNAH Infusion Protocol Insulin Aspart 0 unit 01/08/20 12:00 01/10/20 07:32 Novolog SUBCUT Not Given WM&BEDTIME HANNAH Protocol Montelukast Sodium 10 mg 01/08/20 09:00 01/10/20 09:01 Singulair PO 10 mg DAILY HANNAH Administration Pantoprazole Sodiu m 40 mg 01/08/20 10:15 01/10/20 09:01 Protonix PO 40 mg DAILY HANNAH Administration Prednisone 40 mg 01/07/20 21:28 01/10/20 09:01 Prednisone PO 40 mg DAILY HANNAH Administration No Known Allergies Allergy (Verified 01/07/20 17:46) Vitals/I&O/Wt Last Vital Signs Temp 98.0 F 01/10/20 15:51 Pulse 47 L 01/10/20 16:08 Resp 20 H 01/10/20 16:00 BP 119/50 01/10/20 15:51 Pulse Ox 92 01/10/20 16:00 01/10/20 01/10/20 01/10/20 06:59 14:59 22:59 Intake Total 800 / 2290 730 / 730 220 / 950 Balance 800 / 1590 730 / 730 220 / 950 Weight last 48 hrs Weight 211 lb 5 oz Weight 208 lb 9.6 oz Physical Exam Narrative: EXAM NARRATIVE: GENERAL: Patient is intubated and sedated NECK: No jugular vein distension. HEENT: No cyanosis. No icterus. pallor. HEART: Regular S1 and S2. No murmur, rub or gallop. LUNGS: Decreased breath mild inspiratory crackles bilaterally. ABDOMEN: Soft, nontender and nondistended. Positive bowel sounds. No guarding, rebound or tenderness. 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 Data : 01/11/20 04:23 01/11/20 04:23 Micro: Microbiology 01/08/20 04:20 Gram Stain - Final Sputum - Expectorated Sputum Sputum Culture - Preliminary A&P Assessment and plan (1) AV heart block: Patient has A-V dissociation with complete heart block junctional escape however heart rate remains into 40s and low 50s. He has not improved in the last few days. He has underlying chest and urine tract infection. For now we will continue to monitor him since he is stable once he will be infection free with improving blood test we will proceed with dual-chamber pacemaker if rhythm persist. As we discussed yesterday we will continue to monitor him. So far there is no hemodynamically significant bradycardia noted. Patient is in sinus rhythm with A-V dissociation and junctional block. Once patient will be infection free we will then proceed with pacemaker placement Continue to monitor patient remained stable and heart rate chapin and vital chapin. We will continue to monitor. I have discussed with the patient again and his over the phone regarding indication for permanent pacemaker as he will be needing it, however in the presence of sepsis infection we did will be deferred until patient is cleared of infection. Continue to monitor Status: Acute (2) Hypoxia: Pneumonia/COPD exacerbation continue as per medicine treatment Status: Acute (3) CAD (coronary artery disease): Stable from a coronary disease perspective. Continue medicine Status: Chronic Qualifiers: Associated angina: without angina Coronary Disease-Associated Artery/Lesion type: [place] artery [place] vs. transplanted heart: [place] heart Qualified Code(s): I25.10 - Atherosclerotic heart disease of [place] coronary artery without angina pectoris (4) Congestive heart failure: Appear to be compensated. Continue current Status: Acute Qualifiers: Heart failure chronicity: chronic Heart failure type: diastolic Qualified Code(s): I50.32 - Chronic diastolic (congestive) heart failure (5) HAZEL (acute kidney injury): Continue to monitor appeared to be stable Status: Acute (6) Pneumonia: On broad spectrum antibiotics. Status: Acute Qualifiers: Laterality: bilateral Lung location: lower lobe of lung Pneumonia type: due to unspecified organism Qualified Code(s): J18.9 - Pneumonia, unspecified organism Additional A&P Information history of DARIUS on CPAP Attestations Medical Necessity Statement*: Patient require continuation hospitalization for above defined care Coding Level of Care Code Established Pt Acute Institutional Research Coordinator for g Fwd Patient Type Established History Expanded Problem Focused Exam Expanded Problem Focused Medical Decision Making Moderate Complexity Diagnoses AV heart block I44.30 Hypoxia R09.02 CAD (coronary artery disease) I25.10 Associated angina: without angina Coronary Disease-Associated Artery/Lesion type: [place] artery [place] vs. transplanted heart: [place] heart Congestive heart failure I50.32 Heart failure chronicity: chronic Heart failure type: diastolic HAZEL (acute kidney injury) N17.9 Pneumonia J18.9 Laterality: bilateral Lung location: lower lobe of lung Pneumonia type: due to unspecified organism
[2020-01-10] MEDS: FUROsemide 10 mg/mL SDV 2mL 20 MG IVP (19:28)
[2020-01-10 20:28] LABS: Glucose Point of Care 177 mg/dL (70-110)
--- NOTE | 2020-01-10 20:30 | PC.NURSE ---
Received report from RAMÍREZ Harrell. Pt resting in bed with no complaints or needs at this time. See assessment.
[2020-01-11] VITALS (14 sets, daily range): BP systolic 113–131; BP diastolic 48–58; PULSE 44–60; RESP 17–22; TEMP 36.3–36.9; O2SAT 85–94
[2020-01-11] MEDS: ipratropium-albuterol 3 mL Neb INHALATION ×4 (03:30→20:17)
[2020-01-11 04:42] LABS: Basophils % 0.1 %; Hematocrit 28.4 % (42.0-52.0); Hemoglobin 8.7 g/dL (11.7-16.6); Lymphocytes # 1.5 10^3/uL (0.8-4.8); Mean Corpuscular HGB Conc 30.6 g/dL (30.0-36.0); Mean Corpuscular Hemoglobin 30.6 pg (28.0-34.0); Mean Platelet Volume 10.8 fL (7.4-10.4); Monocytes # 0.8 10^3/uL (0.2-0.9); Monocytes % 5.4 %; Neutrophils # 12.6 10^3/uL (1.8-7.7); Neutrophils % 83.6 %; Nucleated Red Blood Cells % 0 %; Platelet Count 193 10^3/cmm (130-400); Red Blood Count 2.84 10^6/uL (4.1-5.3); Red Cell Distribution Width 14.9 % (12.1-15.1); White Blood Count 15.1 10^3/uL (4.0-10.0)
[2020-01-11 05:42] LABS: Anion Gap 13.3 (5-19); Blood Urea Nitrogen 33 mg/dL (8-23); Calcium 8.5 mg/dL (8.5-10.5); Carbon Dioxide 25 mmol/L (22-29); Chloride 111 mmol/L (98-107); Glucose 129 mg/dL (65-115); Osmolality Calculated 299 mOsm/kg (285-295); Potassium 4.3 mmol/L (3.5-5.1); Sodium 145 mmol/L (136-145)
[2020-01-11 06:33] LABS: Glucose Point of Care 119 mg/dL (70-110)
[2020-01-11] MEDS: piperacillin-tazobactam 3.375 GM in sodium chloride 0.9% (plus) 50 ML IV ×3 (08:39→23:38)
[2020-01-11] MEDS: predniSONE 20 mg Tablet 40 MG PO (08:42)
[2020-01-11] MEDS: atorvastatin 40 mg Tablet PO (08:42)
[2020-01-11] MEDS: montelukast sodium 10 mg Tablet PO (08:43)
[2020-01-11] MEDS: pantoprazole DR 40 mg Tablet PO (08:43)
[2020-01-11] MEDS: budesonide 0.5 mg/2 mL Neb 0.25 MG INHALATION ×2 (09:03→20:16)
[2020-01-11 10:56] LABS: Glucose Point of Care 112 mg/dL (70-110)
--- NOTE | 2020-01-11 11:16 | XR_ITS ---
WS: [id number] XR chest 1V portable [id number] REASON FOR EXAM: progression of fluid/pneumonia, hemoptysis FINDINGS: Acute alveolar edema is seen in the right lung increasing since the previous exam there is also evidence of alveolar infiltrate in the left lung base with a small amount of left pleural effusi on. The cardiac silhouette is not enlarged. Comparison is made to previous exam of January 07, 2020. XR/XR chest 1V portable [id number] IMPRESSION: Progressive alveolar infiltrates particularly on the right left side most likel y from pneumonia.
--- NOTE | 2020-01-11 11:16 | P.PN_ITS ---
Subjective Subjective: Interval history: Had 1100 mL urine output overnight, hemodynamically stable, on 3 L nasal cannula, slight drop in hemoglobin noted today from 9.1->8.7, decreased leukocytosis to 15.1, slight worsening in renal function though received a 20 mg dose of IV Lasix last night which likely explains increased urine output. Remains on Zosyn and Levaquin. Afebrile. Sitting up in bed, reports feeling about the same as he did yesterday, seems more coarse so will repeat CXR. Medications: Reviewed: Yes Medication Review Details: Active Medications Generic Name Dose Route Start Last Admin Trade Name Freq PRN Reason Stop Dose Admin Albuterol/Ipratrop ium 3 ml 01/07/20 21:28 Duoneb INHALATION Q6H PRN SHORTNESS OF YASMINE TH Albuterol/Ipratrop ium 3 ml 01/07/20 21:28 01/11/20 09:03 Duoneb INHALATION 3 ml Q6H.RESPIRATORY S CH Administration Atorvastatin Calci um 40 mg 01/08/20 09:00 01/11/20 08:42 Lipitor PO 40 mg DAILY HANNAH Administration Budesonide 0.25 mg 01/10/20 20:00 01/11/20 09:03 Pulmicort INHALATION 0.25 mg BID.RESPIRATORY S CH Administration Dextrose 25 ml 01/08/20 10:05 D50w IVP ONCE PRN hypoglycemia prot ocol Protocol Dextrose 50 ml 01/08/20 10:05 D50w IVP PRN PRN hypoglycemia prot ocol Protocol Fluticasone Propio jay 1 spray 01/08/20 09:00 01/11/20 08:43 Flonase INTRANASAL Not Given DAILY HANNAH Glucagon 1 mg 01/08/20 10:05 Glucagen IM ONCE PRN Adult Acute Hypog lycemia Prot. Protocol Heparin Sodium (Be ef Lung) 5,000 unit 01/07/20 21:28 01/10/20 13:02 Heparin SUBCUT 5,000 unit Q8H HANNAH Administration Piperacillin Sod/T azobactam 50 mls @ 12.5 mls /hr 01/07/20 23:00 01/11/20 08:39 Sod 3.375 gm/ So dium Chloride IV 12.5 mls/hr Q8H HANNAH Administration Protocol Dextrose 500 mls @ 100 mls /hr 01/08/20 10:05 D5w IV ONCE PRN Adult Acute Hypog lycemia Prot Protocol Levofloxacin/Dextr ose 750 mg in 150 mls @ 100 mls/hr 01/09/20 22:30 01/10/20 01:17 Levaquin-D5w IV Infused Q48H HANNAH Infusion Protocol Insulin Aspart 0 unit 01/08/20 12:00 01/11/20 07:04 Novolog SUBCUT Not Given WM&BEDTIME HANNAH Protocol Montelukast Sodium 10 mg 01/08/20 09:00 01/11/20 08:43 Singulair PO 10 mg DAILY HANNAH Administration Pantoprazole Sodiu m 40 mg 01/08/20 10:15 01/11/20 08:43 Protonix PO 40 mg DAILY HANNAH Administration Prednisone 40 mg 01/07/20 21:28 01/11/20 08:42 Prednisone PO 40 mg DAILY HANNAH Administration No Known Allergies Allergy (Verified 01/07/20 17:46) Vitals/I&O/Wt Last Vital Signs Temp 97.4 F L 01/11/20 07:26 Pulse 51 L 01/11/20 09:14 Resp 20 H 01/11/20 09:06 BP 128/53 01/11/20 07:26 Pulse Ox 93 01/11/20 09:06 01/10/20 01/11/20 01/11/20 22:59 06:59 14:59 Intake Total 390 / 1120 200 / 1320 240 / 240 Output Total 700 / 700 400 / 1100 200 / 200 Balance -310 / 420 -200 / 220 40 / 40 Weight last 48 hrs Weight 93.349 kg Weight 95.39 kg Weight 95.85 kg Physical Exam Const: COMMON NORMALS: no acute distress, patient oriented x3 and alert GENERAL APPEARANCE: cooperative and comfortable NUTRITIONAL APPEARANCE: obese morbidly obese ORIENTATION/CONSCIOUSNESS: Yes awake OTHER: -looks appropriate for age; fatigued HENMT: COMMON NORMALS: normocephalic, atraumatic, hearing grossly normal bilaterally and moist oral mucous membranes HEAD & SCALP: normocephalic and atraumatic Eye: COMMON NORMALS: Equal, round and reactive pupils present, EOMs intact bilaterally and conjunctivae normal CONJUNCTIVA: Yes conjunctivae normal PUPIL: Yes Equal, round and reactive pupils present Neck/C-Spine: COMMON NORMALS: full ROM GENERAL: Yes normal visual inspection and Yes trachea midline Chest: CHEST: Yes Symmetrical chest wall rise Resp: COMMON NORMALS: normal respiratory effort, No retractions and No use of accessory muscles EFFORT & INSPECTION: Yes able to speak in complete sentences, Yes symmetric chest movement and No tachypneic AUSCULTATION: wheezes expiratory wheezes OTHER: -on 4 L NC, coarse breath sounds particularly on the R Cardio: COMMON NORMALS: regular rhythm, S1 normal heart sound present, S2 normal heart sound present and No murmurs present (Cardio) RATE: bradycardic RHYTHM: regular rhythm HEART SOUNDS: S1 normal heart sound present and S2 normal heart sound present GI: COMMON NORMALS: Normal to inspection, nondistended, normoactive bowel sounds present, Soft to palpation and non-tender INSPECTION: Yes central obesity PALPATION: Yes Soft to palpation Back/Pelvis: COMMON NORMALS: thoracic and lumbar spine normal to inspection Extremity: COMMON NORMALS: normal to inspection, full ROM, no clubbing, cyanosis or edema and no pedal edema Neuro: COMMON NORMALS: patient oriented x3, moves all extremities, no focal motor deficits and no sensory deficits noted SENSORIUM/ORIENTATION: Yes alert Psych: COMMON NORMALS: mental status grossly normal, Normal thought process present, cooperative, normal affect and speech normal SPEECH: Yes normal speech THOUGHT PROCESS: Normal thought process present Skin: COMMON NORMALS: no rashes or lesions noted, no jaundice, no petechiae and no mottling GENERAL SKIN EXAM: no rashes or lesions noted Data : 01/11/20 04:23 01/11/20 04:23 Micro: Microbiology 01/08/20 04:20 Gram Stain - Final Sputum - Expectorated Sputum Sputum Culture - Final A&P Assessment and plan (1) Pneumonia: -recently diagnosed with community-acquired pneumonia, had been on treatment with levaquin -recently tested for COVID-19, negative -on Zosyn, Levaquin; off Vanc as MRSA negative; continue to narrow spectrum with clinical improvement -blood cx: prelim negative -imaging reviewed -afebrile, decreased leukocytosis; continue to trend WBC and monitor vital signs -sputum cx sent from PCP including mycobacterial smear; prelim negative for AFB. Sputum cx positive for Pseudomonas aeruginosa, sensitivity noted -repeat sputum cx-mixed christiano, gram stain positive for GPC -bacterial antigens and Legionella negative -some hemoptysis noted with slight drop in Hg today (9.1->8.7), continue to monitor H/H and hold AC; INR-1.04 -close monitoring of respiratory status -home oxygen evaluation prior to d/c if still oxygen dependent -repeat CXR today to monitor progression given increased oxygen requirement, coarse breath sounds Status: Acute Qualifiers: Laterality: bilateral Lung location: lower lobe of lung Pneumonia type: due to unspecified organism Qualified Code(s): J18.9 - Pneumonia, unspecified organism (2) AV heart block: -noted high grade AV block and bradycardia -BB on hold, had been on Coreg 6.25 mg BID -telemetry monitoring -HRs in the 40-50 range, BP stable; continue to monitor vital signs -Echo: EF=55%, G1DD, mild LVH, trace AR, mild-moderate MR, trace to mild TR; previous done in 03/2019 showed EF=49%, G1DD -Cardiology consult by Dr. Yadav and Dr. Florez appreciated -if persistent and symptomatic, may need pacemaker; anticipate discharge with event monitoring to allow for completion of antibiotic treatment course and resolution of pneumonia Status: Acute (3) Bradycardia: -noted above Status: Acute (4) HAZEL (acute kidney injury): -HAZEL on CKD stage 2 -baseline Cr wnl -slight worsening in renal function likely due to Lasix given last night, continue to monitor -avoid nephrotoxins, renally dose meds Status: Acute (5) COPD exacerbation: -acute COPD exacerbation; likely triggered by pneumonia -not oxygen dependent at baseline; may need home oxygen evaluation prior to d/c -continue to monitor respiratory status -on steroids, Neb treatments and antibiotics -supplemental oxygen as needed Status: Acute (6) CAD (coronary artery disease): -follows up with Dr. Florez -s/p CABG Status: Chronic Qualifiers: Associated angina: without angina Coronary Disease-Associated Artery/Lesion type: [place] artery [place] vs. transplanted heart: [place] heart Qualified Code(s): I25.10 - Atherosclerotic heart disease of [place] coronary artery without angina pectoris (7) DARIUS (obstructive sleep apnea): -CPAP qhs Status: Chronic (8) CKD (chronic kidney disease) stage 2, GFR 60-89 ml/min: -as noted above Status: Chronic (9) Chronic anemia: -continue to monitor H/H Status: Acute (10) HTN (hypertension): -normotensive -continue to monitor vitals -Coreg on hold due to bradycardia; ACEi on hold due to renal impairment Status: Chronic Qualifiers: Hypertension type: essential hypertension Qualified Code(s): I10 - Essential (primary) hypertension (11) Non-insulin dependent diabetes mellitus: -A1c-5.9 -accuchecks, ISS, hypoglycemia precautions -hold metformin -anticipate hyperglycemia with steroid use and acute illness Status: Chronic (12) Obesity: -BMI-30 kg/m2 Status: Chronic Qualifiers: Body mass index: BMI 30.0-30.9 Obesity classification: adult class 1 (BMI 30 - 34.9) Obesity type: due to excess calories Serious obesity comorbidity presence: with serious comorbidity Qualified Code(s): E66.09 - Other obesity due to excess calories; Z68.30 - Body mass index (BMI) 30.0-30.9, adult Additional A&P Information -GI ppx with PPI -DVT ppx with heparin; hold this due to hemoptysis -Dispo: home -Code status: FULL code Attestations Medical Necessity Statement*: Patient requires hospitalization for continued management of pneumonia on dual IV antibiotics, steroids, continues to require supplemental oxygen with noted hemoptysis and continued leukocytosis though downward trending as well as continue telemetry monitoring due to noted bradycardia with AV block. Time Spent in Patient Care: 16 - 35 minutes (>than 50% of time spent in counselling and/or direct pt care on unit) . 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 transplanted heart: [place] heart DARIUS (obstructive sleep apnea) G47.33 CKD (chronic kidney disease) stage 2, GFR 60-89 ml/min N18.2 Chronic anemia D64.9 HTN (hypertension) I10 Hypertension type: essential hypertension Non-insulin dependent diabetes mellitus Obesity E66.09; Z68.30 Body mass index: BMI 30.0-30.9 Obesity classification: adult class 1 (BMI 30 - 34.9) Obesity type: due to excess calories Serious obesity comorbidity presence: with serious comorbidity
[2020-01-11 16:06] LABS: Glucose Point of Care 179 mg/dL (70-110)
[2020-01-11] MEDS: bumetanide 0.25 mg/mL SDV 10 mL 1 MG IV (17:03)
--- NOTE | 2020-01-11 20:00 | PC.NURSE ---
Received shift report from RAMÍREZ Harrell. Pt resting comfortably in bed watching tv with no complaints or needs at this time. See shift assessment. Will continue to monitor.
[2020-01-11 20:33] LABS: Glucose Point of Care 151 mg/dL (70-110)
[2020-01-11] MEDS: levofloxacin-dextrose 5 % 750 MG/150 ML PREMIX 100 MG IV (22:07)
[2020-01-12] VITALS (13 sets, daily range): BP systolic 114–133; BP diastolic 41–54; PULSE 48–54; RESP 16–24; TEMP 36.5–36.6; O2SAT 90–96
[2020-01-12] MEDS: ipratropium-albuterol 3 mL Neb INHALATION ×4 (02:52→20:39)
--- NOTE | 2020-01-12 05:17 | PC.NURSE ---
Pt rested comfortably this evening with no complaints. O2 sat low on 4L while resting in bed. O2 increased to 5L per nc. O2 sat 90-93% on 5L.
[2020-01-12 05:50] LABS: Basophils % 0.1 %; Eosinophils % 0.1 %; Hematocrit 27.4 % (42.0-52.0); Hemoglobin 8.2 g/dL (11.7-16.6); Lymphocytes # 2.1 10^3/uL (0.8-4.8); Lymphocytes % 14.8 %; Mean Corpuscular HGB Conc 29.9 g/dL (30.0-36.0); Mean Corpuscular Hemoglobin 30.5 pg (28.0-34.0); Mean Corpuscular Volume 101.9 fL (80-94); Mean Platelet Volume 11.2 fL (7.4-10.4); Monocytes # 0.8 10^3/uL (0.2-0.9); Monocytes % 5.8 %; Neutrophils # 11.2 10^3/uL (1.8-7.7); Neutrophils % 78.4 %; Nucleated Red Blood Cells % 0 %; Platelet Count 190 10^3/cmm (130-400); Red Blood Count 2.69 10^6/uL (4.1-5.3); Red Cell Distribution Width 15.2 % (12.1-15.1); White Blood Count 14.3 10^3/uL (4.0-10.0)
[2020-01-12 06:16] LABS: Anion Gap 13.1 (5-19); Blood Urea Nitrogen 36 mg/dL (8-23); Calcium 8.6 mg/dL (8.5-10.5); Carbon Dioxide 27 mmol/L (22-29); Chloride 110 mmol/L (98-107); Glucose 99 mg/dL (65-115); Osmolality Calculated 300 mOsm/kg (285-295); Potassium 4.1 mmol/L (3.5-5.1); Sodium 146 mmol/L (136-145)
[2020-01-12 06:23] LABS: Glucose Point of Care 108 mg/dL (70-110)
--- NOTE | 2020-01-12 07:16 | PM.PN ---
Subjective Subjective: Interval history: Patient's oxygen requirement has gone up overnight and is currently on 5 L of oxygen via nasal cannula. He started having hemoptysis again this morning. He denies having any chest pain. Continues to be in SR with third-degree AV block with junctional escape rhythm in high 40s to 50s. Medications: Reviewed: Yes Medication Review Details: Current Medications Albuterol/Ipratropium (Duoneb) 3 ml INHALATION Q6H PRN PRN Reason: SHORTNESS OF BREATH Albuterol/Ipratropium (Duoneb) 3 ml INHALATION Q6H.RESPIRATORY HANNAH Last Admin: 01/12/20 08:39 Dose: 3 ml Documented by: Atorvastatin Calcium (Lipitor) 40 mg PO DAILY HANNAH Last Admin: 01/12/20 08:58 Dose: 40 mg Documented by: Budesonide (Pulmicort) 0.25 mg INHALATION BID.RESPIRATORY HANNAH Last Admin: 01/12/20 08:39 Dose: 0.25 mg Documented by: Dextrose (D50w) 25 ml IVP ONCE PRN; Protocol PRN Reason: hypoglycemia protocol Dextrose (D50w) 50 ml IVP PRN PRN; Protocol PRN Reason: hypoglycemia protocol Fluticasone Propionate (Flonase) 1 spray INTRANASAL DAILY HANNAH Last Admin: 01/12/20 08:59 Dose: Not Given Documented by: Glucagon (Glucagen) 1 mg IM ONCE PRN; Protocol PRN Reason: Adult Acute Hypoglycemia Prot. Heparin Sodium (Beef Lung) (Heparin) 5,000 unit SUBCUT Q8H HANNAH Last Admin: 01/10/20 13:02 Dose: 5,000 unit Documented by: Piperacillin Sod/Tazobactam (Sod 3.375 gm/ Sodium Chloride) 50 mls @ 12.5 mls/hr IV Q8H HANNAH; Protocol Last Admin: 01/12/20 08:55 Dose: 12.5 mls/hr Documented by: Dextrose (D5w) 500 mls @ 100 mls/hr IV ONCE PRN; Protocol PRN Reason: Adult Acute Hypoglycemia Prot Levofloxacin/Dextrose (Levaquin-D5w) 750 mg in 150 mls @ 100 mls/hr IV Q48H HANNAH; Protocol Last Admin: 01/11/20 22:07 Dose: 100 mls/hr Documented by: Insulin Aspart (Novolog) 0 unit SUBCUT WM&BEDTIME HANNAH; Protocol Last Admin: 01/12/20 07:15 Dose: Not Given Documented by: Montelukast Sodium (Singulair) 10 mg PO DAILY COUNTS INCLUDE 234 BEDS AT THE [facility] Last Admin: 01/12/20 08:58 Dose: 10 mg Documented by: Pantoprazole Sodium (Protonix) 40 mg PO DAILY COUNTS INCLUDE 234 BEDS AT THE [facility] Last Admin: 01/12/20 08:58 Dose: 40 mg Documented by: Prednisone (Prednisone) 40 mg PO DAILY COUNTS INCLUDE 234 BEDS AT THE [facility] Last Admin: 01/12/20 08:59 Dose: 40 mg Documented by: Vitals/I&O/Wt Last Vital Signs Temp 97.8 F 01/12/20 04:32 Pulse 51 L 01/12/20 04:32 Resp 19 H 01/12/20 04:32 BP 123/49 01/12/20 04:32 Pulse Ox 93 01/12/20 04:32 01/11/20 01/12/20 01/12/20 22:59 06:59 14:59 Intake Total 410 / 1060 0 / 1060 Output Total 375 / 575 500 / 1075 Balance 35 / 485 -500 / -15 Weight last 48 hrs Weight 211 lb 9.6 oz Weight 205 lb 12.8 oz Weight 210 lb 4.8 oz Physical Exam Narrative: EXAM NARRATIVE: GENERAL: Patient is lying in bed in no acute distress NECK: No jugular vein distension. HEENT: Pupils equal round reactive to light, mild pallor. No icterus HEART: Regular. No murmur, rub or gallop. LUNGS: Coarse bilateral breath sounds; right more than left rhonchi + ABDOMEN: Soft, nontender and nondistended. Positive bowel sounds. No guarding, rebound or tenderness. CENTRAL NERVOUS SYSTEM: Awake alert oriented x3 no focal neurological deficits EXTREMITIES: No edema or cyanosis noted Data : 01/12/20 04:50 01/12/20 04:50 Micro: Microbiology 01/08/20 04:20 Gram Stain - Final Sputum - Expectorated Sputum Sputum Culture - Final Echo: Radiologist's impression: CONCLUSIONS Normal left ventricular size and systolic function, EF 55%. Mild left ventricular hypertrophy. No regional wall motion abnormalities. Grade I/IV diastolic dysfunction (abnormal relaxation filling pattern), normal to mildly elevated filling pressures. Moderate mitral annular calcification. Thickened mitral valve. Mild-moderate mitral valve regurgitation. Aortic valve sclerosis. Trace aortic valve regurgitation. Trace to mild tricuspid valve regurgitation. Estimated pulmonary artery peak systolic pressure of 44 mmHg- (mild pulmonary hypertension). There is no pericardial effusion. There are no intracardiac masses. Compared to the previous study from 04/03/2019, there may not be a significant change A&P Assessment and plan (1) AV heart block: Patient has A-V dissociation with complete heart block junctional escape however heart rate remains into 40s and low 50s. He has not improved in the last few days. For now we will continue to monitor him since he is stable once he will be infection free we will proceed with dual-chamber pacemaker if rhythm persist. Status: Acute (2) Hypoxia: Pneumonia/COPD exacerbation continue as per primary team Status: Acute (3) CAD (coronary artery disease): Stable from a coronary disease perspective. Continue medicine Status: Chronic Qualifiers: Associated angina: without angina Coronary Disease-Associated Artery/Lesion type: [place] artery [place] vs. transplanted heart: [place] heart Qualified Code(s): I25.10 - Atherosclerotic heart disease of [place] coronary artery without angina pectoris (4) Congestive heart failure: Appear to be compensated. Continue current Status: Acute Qualifiers: Heart failure chronicity: chronic Heart failure type: diastolic Qualified Code(s): I50.32 - Chronic diastolic (congestive) heart failure (5) HAZEL (acute kidney injury): Continue to monitor appeared to be stable Status: Acute (6) Pneumonia: On broad spectrum antibiotics. 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 transplanted heart: [place] heart Congestive heart failure I50.32 Heart failure chronicity: chronic Heart failure type: diastolic HAZEL (acute kidney injury) N17.9 Pneumonia J18.9 Laterality: bilateral Lung location: lower lobe of lung Pneumonia type: due to unspecified organism
--- NOTE | 2020-01-12 07:49 | PC.NURSE ---
Addendum entered by Sharri Bond 01/12/20 08:17: Decline in patient status noted when compared to yesterday's assessment. Immediate call placed to physician to notify of changes. Patient requires frequent stops on trip to bathroom (approximately 15 ft) to catch breath as patient states, I just need a minute to catch my air. I'm feeling really winded whereas yesterday patient could make it to the bathroom without difficulty. Patient returned from bathroom sitting on side of bed to feed self breakfast. Labored breathing audible from nurses station. No new orders at this time. Original Note: At approximately 0710, nurse called to room. Patient produced bloody sputum. Patient assessed. Lung sounds are course throughout with crackles in bilateral bases. Patient appears SOB while resting in bed. Patient on 5L NC at this time maintaining 02 saturations at 94%. Patient denied any pain in chest. Dr. Caba notified of findings. Physician to come to bedside. No further interventions at this time. Nurse to continue to monitor.
--- NOTE | 2020-01-12 08:28 | PC.NURSE ---
Nurse notified Dr. Yadav of changes. Physician to review chart and report to bedside.
[2020-01-12] MEDS: budesonide 0.5 mg/2 mL Neb 0.25 MG INHALATION ×2 (08:39→20:38)
[2020-01-12] MEDS: piperacillin-tazobactam 3.375 GM in sodium chloride 0.9% (plus) 50 ML IV ×3 (08:55→23:14)
[2020-01-12] MEDS: montelukast sodium 10 mg Tablet PO (08:58)
[2020-01-12] MEDS: atorvastatin 40 mg Tablet PO (08:58)
[2020-01-12] MEDS: pantoprazole DR 40 mg Tablet PO (08:58)
[2020-01-12] MEDS: predniSONE 20 mg Tablet 40 MG PO (08:59)
--- NOTE | 2020-01-12 09:43 | PC.NURSE ---
Dr. Yadav at bedside. Physician to discuss care with Dr. Caba. No new orders at this time.
--- NOTE | 2020-01-12 09:45 | PC.SOCIAL ---
IMM Updated Page 2 of IMM updated and given to patient. Initialed, dated, and timed and placed back in chart.
[2020-01-12 11:04] LABS: Glucose Point of Care 140 mg/dL (70-110)
--- NOTE | 2020-01-12 11:15 | PC.NURSE ---
Nurse called to room. Patient states that he has to use the restroom. The patient was found sitting on the side of the bed exhibiting shortness of breath, tachypnia, accessory muscle use, and pursed lip breathing. Patient o2 sats 91% on 5L NC. Patient states that he didn't think he would be able to make it to the bathroom. Nurse obtained bed side commode.
--- NOTE | 2020-01-12 11:57 | PC.NURSE ---
Patient pulled out IV while sitting up in bed. Line removed and insertion site covered with gauze and coban. Patient tolerated well. Nurse made two attempts to establish an IV line and were unsuccessful. Another nurse established IV in L AC on first attempt. Patient tolerated well. Zosyn infusion restarted.
--- NOTE | 2020-01-12 13:30 | CTR_ITS ---
PROCEDURE INFORMATION: Exam: CT Chest Without Contrast Exam date and time: 01/12/2020 1:33 PM Age: 74 years old Clinical indication: Other: Pneumonia; Prior surgery; Surgery type: Heart; Additional info: Hemoptysis, increased oxygen requirement, pneumonia TECHNIQUE: Imaging protocol: Computed tomography of the chest without contrast. Radiation optimization: All CT scans at this facility use at least one of these dose optimization techniques: automated exposure control; mA and/or kV adjustment per patient size (includes targeted exams where dose is matched to clinical indication); or iterative reconstruction. COMPARISON: No relevant prior studies available. FINDINGS: Lungs: Emphysema most pronounced in the upper lobes. Coarse reticular infiltrates throughout portions of both lungs which become confluent in areas. Some in a perihilar distribution. Possible pulmonary edema. Superimposed pneumonia not excluded. Pleural space: Moderate-sized bilateral pleural effusions. Heart: Prior CABG. Abundant coronary artery calcification. Extensive mitral valve annulus calcification. No cardiomegaly. Aorta: Moderate aortic arch and great vessel origin atherosclerotic calcification. No aortic aneurysm. Lymph nodes: Unremarkable. No enlarged lymph nodes. Gallbladder and bile ducts: Prior cholecystectomy. Bones/joints: No acute fracture. Soft tissues: Unremarkable. Other findings: The Total DLP (mGy-cm): 1063.32 CT/CT chest wo con [id number] IMPRESSION: 1.) Emphysema most pronounced in the upper lobes. Coarse reticular infiltrates throughout portions of both lungs which become confluent in areas. Some in a perihilar distribution. Possible pulmonary edema. Superimposed pneumonia not excluded. 2.) Moderate bilateral pleural effusions. Radiation Dose CTDIVOL = (mGy): DLP = 1063.32 (mGy-cm)
--- NOTE | 2020-01-12 13:31 | P.PN_ITS ---
Subjective Subjective: Interval history: Had hemoptysis overnight per nursing staff, increased oxygen requirement to 5 L NC, seems more SOB and coarse on auscultation, will order CT chest as noted worsening findings on repeat CXR yesterday. Had CT chest done on 12/31 which showed bilateral pleural effusions and interstitial edema. Had received some diuresis yesterday with no noted improvement. Medications: Reviewed: Yes Medication Review Details: Active Medications Generic Name Dose Route Start Last Admin Trade Name Freq PRN Reason Stop Dose Admin Albuterol/Ipratrop ium 3 ml 01/07/20 21:28 Duoneb INHALATION Q6H PRN SHORTNESS OF YASMINE TH Albuterol/Ipratrop ium 3 ml 01/07/20 21:28 01/12/20 08:39 Duoneb INHALATION 3 ml Q6H.RESPIRATORY S CH Administration Atorvastatin Calci um 40 mg 01/08/20 09:00 01/12/20 08:58 Lipitor PO 40 mg DAILY HANNAH Administration Budesonide 0.25 mg 01/10/20 20:00 01/12/20 08:39 Pulmicort INHALATION 0.25 mg BID.RESPIRATORY S CH Administration Dextrose 25 ml 01/08/20 10:05 D50w IVP ONCE PRN hypoglycemia prot ocol Protocol Dextrose 50 ml 01/08/20 10:05 D50w IVP PRN PRN hypoglycemia prot ocol Protocol Fluticasone Propio jay 1 spray 01/08/20 09:00 01/12/20 08:59 Flonase INTRANASAL Not Given DAILY HANNAH Glucagon 1 mg 01/08/20 10:05 Glucagen IM ONCE PRN Adult Acute Hypog lycemia Prot. Protocol Heparin Sodium (Be ef Lung) 5,000 unit 01/07/20 21:28 01/10/20 13:02 Heparin SUBCUT 5,000 unit Q8H HANNAH Administration Piperacillin Sod/T azobactam 50 mls @ 12.5 mls /hr 01/07/20 23:00 01/12/20 12:00 Sod 3.375 gm/ So dium Chloride IV 12.5 mls/hr Q8H HANNAH Infusion Protocol Dextrose 500 mls @ 100 mls /hr 01/08/20 10:05 D5w IV ONCE PRN Adult Acute Hypog lycemia Prot Protocol Levofloxacin/Dextr ose 750 mg in 150 mls @ 100 mls/hr 01/09/20 22:30 01/11/20 22:07 Levaquin-D5w IV 100 mls/hr Q48H HANNAH Administration Protocol Insulin Aspart 0 unit 01/08/20 12:00 01/12/20 12:00 Novolog SUBCUT Not Given WM&BEDTIME HANNAH Protocol Montelukast Sodium 10 mg 01/08/20 09:00 01/12/20 08:58 Singulair PO 10 mg DAILY HANNAH Administration Pantoprazole Sodiu m 40 mg 01/08/20 10:15 01/12/20 08:58 Protonix PO 40 mg DAILY HANNAH Administration Prednisone 40 mg 01/07/20 21:28 01/12/20 08:59 Prednisone PO 40 mg DAILY HANNAH Administration No Known Allergies Allergy (Verified 01/07/20 17:46) Vitals/I&O/Wt Last Vital Signs Temp 97.9 F 01/12/20 10:48 Pulse 49 L 01/12/20 10:48 Resp 20 H 01/12/20 10:48 BP 119/41 01/12/20 10:48 Pulse Ox 94 01/12/20 10:48 01/11/20 01/12/20 01/12/20 22:59 06:59 14:59 Intake Total 410 / 1060 50 / 1110 714.375 / 714.375 Output Total 375 / 575 500 / 1075 Balance 35 / 485 -450 / 35 714.375 / 714.375 Weight last 48 hrs Weight 95.98 kg Weight 93.349 kg Weight 95.39 kg Physical Exam Const: COMMON NORMALS: no acute distress, patient oriented x3 and alert GENERAL APPEARANCE: cooperative and comfortable NUTRITIONAL APPEARANCE: obese morbidly obese ORIENTATION/CONSCIOUSNESS: Yes awake OTHER: -looks appropriate for age; fatigued HENMT: COMMON NORMALS: normocephalic, atraumatic, hearing grossly normal bilaterally and moist oral mucous membranes HEAD & SCALP: normocephalic and atraumatic Eye: COMMON NORMALS: Equal, round and reactive pupils present, EOMs intact bilaterally and conjunctivae normal CONJUNCTIVA: Yes conjunctivae normal PUPIL: Yes Equal, round and reactive pupils present Neck/C-Spine: COMMON NORMALS: full ROM GENERAL: Yes normal visual inspectio n and Yes trachea midline Chest: CHEST: Yes Symmetrical chest wall rise Resp: COMMON NORMALS: normal respiratory effort, No retractions and No use of accessory muscles EFFORT & INSPECTION: Yes able to speak in complete sentences, Yes symmetric chest movement and No tachypneic AUSCULTATION: rhonchi right upper and right lower, wheezes expiratory wheezes and diminished lung sounds bilateral in the lower lung patel OTHER: -on 5 L NC, coarse breath sounds particularly on the R Cardio: COMMON NORMALS: regular rhythm, S1 normal heart sound present, S2 normal heart sound present and No murmurs present (Cardio) RATE: bradycardic RHYTHM: regular rhythm HEART SOUNDS: S1 normal heart sound present and S2 normal heart sound present GI: COMMON NORMALS: Normal to inspection, nondistended, normoactive bowel sounds present, Soft to palpation and non-tender INSPECTION: Yes central obesity PALPATION: Yes Soft to palpation Back/Pelvis: COMMON NORMALS: thoracic and lumbar spine normal to inspection Extremity: COMMON NORMALS: normal to inspection, full ROM, no clubbing, cya nosis or edema and no pedal edema Neuro: COMMON NORMALS: patient oriented x3, moves all extremities, no focal motor deficits and no sensory deficits noted SENSORIUM/ORIENTATION: Yes alert Psych: COMMON NORMALS: mental status grossly normal, Normal thought process present, cooperative, normal affect and speech normal SPEECH: Yes normal speech THOUGHT PROCESS: Normal thought process present Skin: COMMON NORMALS: no rashes or lesions noted, no jaundice, no petechiae and no mottling GENERAL SKIN EXAM: no rashes or lesions noted Data : 01/12/20 04:50 01/12/20 04:50 Micro: Microbiology 01/08/20 04:20 Gram Stain - Final Sputum - Expectorated Sputum Sputum Culture - Final A&P Assessment and plan (1) Pneumonia: -recently diagnosed with community-acquired pneumonia, had been on treatment with levaquin -recently tested for COVID-19, negative -on Zosyn, Levaquin; off Vanc as MRSA negative; continue to narrow spectrum with clinical improvement. Will add Azithromycin for atypical coverage -blood cx: prelim negative -imaging reviewed -afebrile, decreased leukocytosis; continue to trend WBC and monitor vital signs -sputum cx sent from PCP including mycobacterial smear; prelim negative for AFB. Sputum cx positive for Pseudomonas aeruginosa, sensitivity noted -repeat sputum cx-mixed christiano, gram stain positive for GPC -bacterial antigens and Legionella negative -some hemoptysis noted with slight drop in Hg today (9.1->8.7->8.2), continue to monitor H/H and hold AC; INR-1.04 -close monitoring of respiratory status -home oxygen evaluation prior to d/c if still oxygen dependent -repeat CXR (01/10) to monitor progression given increased oxygen requirement, coarse breath sounds. With increased oxygen requirement, more coarseness on auscultation, will order repeat CT chest without contrast due to renal impairment Status: Acute Qualifiers: Laterality: bilateral Lung location: lower lobe of lung Pneumonia type: due to unspecified organism Qualified Code(s): J18.9 - Pneumonia, unspecified organism (2) AV heart block: -noted high grade AV block and bradycardia -BB on hold, had been on Coreg 6.25 mg BID -telemetry monitoring -HRs in the 40-50 range, BP stable; continue to monitor vital signs -Echo: EF=55%, G1DD, mild LVH, trace AR, mild-moderate MR, trace to mild TR; previous done in 03/2019 showed EF=49%, G1DD -Cardiology consult by Dr. Yadav and Dr. Florez appreciated -if persistent and symptomatic, may need pacemaker; anticipate discharge with event monitoring to allow for completion of antibiotic treatment course and resolution of pneumonia Status: Acute (3) Bradycardia: -noted above Status: Acute (4) HAZEL (acute kidney injury): -HAZEL on CKD stage 2 -baseline Cr wnl -slight worsening in renal function likely due to diuresis, continue to monitor -avoid nephrotoxins, renally dose meds Status: Acute (5) COPD exacerbation: -acute COPD exacerbation; likely triggered by pneumonia -not oxygen dependent at baseline; may need home oxygen evaluation prior to d/c -continue to monitor respiratory status -on steroids (switch to IV), Neb treatments and antibiotics -supplemental oxygen as needed Status: Acute (6) CAD (coronary artery disease): -follows up with Dr. Florez -s/p CABG Status: Chronic Qualifiers: Associated angina: without angina Coronary Disease-Associated Artery/Lesion type: [place] artery [place] vs. transplanted heart: [place] heart Qualified Code(s): I25.10 - Atherosclerotic heart disease of [place] coronary artery without angina pectoris (7) DARIUS (obstructive sleep apnea): -CPAP qhs Status: Chronic (8) CKD (chronic kidney disease) stage 2, GFR 60-89 ml/min: -as noted above Status: Chronic (9) Chronic anemia: -continue to monitor H/H Status: Acute (10) HTN (hypertension): -normotensive -continue to monitor vitals -Coreg on hold due to bradycardia; ACEi on hold due to renal impairment Status: Chronic Qualifiers: Hypertension type: essential hypertension Qualified Code(s): I10 - Essential (primary) hypertension (11) Non-insulin dependent diabetes mellitus: -A1c-5.9 -accuchecks, ISS, hypoglycemia precautions -hold metformin -anticipate hyperglycemia with steroid use and acute illness Status: Chronic (12) Obesity: -BMI-30 kg/m2 Status: Chronic Qualifiers: Body mass index: BMI 30.0-30.9 Obesity classification: adult class 1 (BMI 30 - 34.9) Obesity type: due to excess calories Serious obesity co morbidity presence: with serious comorbidity Qualified Code(s): E66.09 - Other obesity due to excess calories; Z68.30 - Body mass index (BMI) 30.0-30.9, adult Additional A&P Information -GI ppx with PPI -DVT ppx with heparin; hold this due to hemoptysis -Dispo: home -Code status: FULL code Attestations Medical Necessity Statement*: Patient requires hospitalization for continued IV antibiotics for treatment of pneumonia, requires additional imaging, increased oxygen requirement. Time Spent in Patient Care: 16 - 35 minutes (>than 50% of time spent in counselling and/or direct pt care on unit) . Coding Level of Care Code Acute Professor Of German for g Fwd Exam Comprehensive Diagnoses Pneumonia J18.9 Laterality: bilateral Lung location: lower lobe of lung Pneumonia type: due to unspecified organism AV heart block I44.30 Bradycardia R00.1 HAZEL (acute kidney injury) N17.9 COPD exacerbation J44.1 CAD (coronary artery disease) I25.10 Associated angina: without angina Coronary Disease-Associated Artery/Lesion type: [place] artery [place] vs. transplanted heart: [place] heart DARIUS (obstructive sleep apnea) G47.33 CKD (chronic kidney disease) stage 2, GFR 60-89 ml/min N18.2 Chronic anemia D64.9 HTN (hypertension) I10 Hypertension type: essential hypertension Non-insulin dependent diabetes mellitus Obesity E66.09; Z68.30 Body mass index: BMI 30.0-30.9 Obesity classification: adult class 1 (BMI 30 - 34.9) Obesity type: due to excess calories Serious obesity comorbidity presence: with serious comorbidity
--- NOTE | 2020-01-12 15:00 | PC.NURSE ---
Dr. Caba at bedside. CT results reviewed with patient. Physician to make medication adjustments. Nurse to continue to monitor.
--- NOTE | 2020-01-12 15:55 | PC.NURSE ---
Late entry Took patient to CT via wheel chair and portable oxygen on 5L per NC. Patient stable at this time. When scan was done. Patient was transported back to room via wheelchair and portable oxygen on 5L per NC. Monitor hooked back up, call light within reach.
[2020-01-12 16:34] LABS: Glucose Point of Care 172 mg/dL (70-110)
--- NOTE | 2020-01-12 20:23 | PC.NURSE ---
Patient does not have any complaints at this time and states I feel pretty good right now, a lot better than I did today. Will continue to monitor.
[2020-01-12 20:26] LABS: Glucose Point of Care 228 mg/dL (70-110)
[2020-01-12] MEDS: FUROsemide 10 mg/mL SDV 4mL 40 MG IVP (20:28)
--- NOTE | 2020-01-12 21:37 | PC.NURSE ---
Dr. Camargo notified of patient having frequent loose stools. Ordered to get c-diff sample.
[2020-01-13] VITALS (13 sets, daily range): BP systolic 117–133; BP diastolic 44–58; PULSE 46–59; RESP 16–25; TEMP 36.5–36.7; O2SAT 90–94
[2020-01-13] MEDS: ipratropium-albuterol 3 mL Neb INHALATION ×4 (02:17→20:09)
[2020-01-13 03:42] LABS: Basophils % 0.1 %; Hematocrit 25.8 % (42.0-52.0); Hemoglobin 7.9 g/dL (11.7-16.6); Lymphocytes # 0.9 10^3/uL (0.8-4.8); Lymphocytes % 7.4 %; Mean Corpuscular HGB Conc 30.6 g/dL (30.0-36.0); Mean Corpuscular Hemoglobin 31.2 pg (28.0-34.0); Monocytes # 0.2 10^3/uL (0.2-0.9); Neutrophils # 10.8 10^3/uL (1.8-7.7); Neutrophils % 89.6 %; Nucleated Red Blood Cells % 0.2 %; Platelet Count 194 10^3/cmm (130-400); Red Blood Count 2.53 10^6/uL (4.1-5.3); Red Cell Distribution Width 15.2 % (12.1-15.1); White Blood Count 12.1 10^3/uL (4.0-10.0)
[2020-01-13 04:00] LABS: Blood Urea Nitrogen 35 mg/dL (8-23); Calcium 8.7 mg/dL (8.5-10.5); Carbon Dioxide 25 mmol/L (22-29); Chloride 105 mmol/L (98-107); Glucose 144 mg/dL (65-115); Osmolality Calculated 296 mOsm/kg (285-295); Sodium 143 mmol/L (136-145)
--- NOTE | 2020-01-13 05:30 | PC.NURSE ---
Patient had an uneventful night. Patient does not have any complaints at this time. Patient is still on 5 L NC with oxygen saturation ranging 88 to 94 percent throughout night. Will continue to monitor.
[2020-01-13 06:19] LABS: Glucose Point of Care 158 mg/dL (70-110)
--- NOTE | 2020-01-13 07:19 | P.PN_ITS ---
Subjective Subjective: Interval history: He continues to require 5 L of oxygen via nasal cannula and have hemoptysis. No chest pain. Medications: Reviewed: Yes Medication Review Details: Cumulative I&O Current Medications Albuterol/Ipratropium (Duoneb) 3 ml INHALATION Q6H PRN PRN Reason: SHORTNESS OF BREATH Albuterol/Ipratropium (Duoneb) 3 ml INHALATION Q6H.RESPIRATORY HANNAH Last Admin: 01/13/20 08:44 Dose: 3 ml Documented by: Atorvastatin Calcium (Lipitor) 40 mg PO DAILY HANNAH Last Admin: 01/13/20 08:56 Dose: 40 mg Documented by: Azithromycin (Zithromax) 500 mg PO DAILY HANNAH; Protocol Last Admin: 01/13/20 10:19 Dose: 500 mg Documented by: Budesonide (Pulmicort) 0.25 mg INHALATION BID.RESPIRATORY HANNAH Last Admin: 01/13/20 08:44 Dose: 0.25 mg Documented by: Dextrose (D50w) 25 ml IVP ONCE PRN; Protocol PRN Reason: hypoglycemia protocol Dextrose (D50w) 50 ml IVP PRN PRN; Protocol PRN Reason: hypoglycemia protocol Fluticasone Propionate (Flonase) 1 spray INTRANASAL DAILY HANNAH Last Admin: 01/13/20 10:12 Dose: Not Given Documented by: Glucagon (Glucagen) 1 mg IM ONCE PRN; Protocol PRN Reason: Adult Acute Hypoglycemia Prot. Heparin Sodium (Beef Lung) (Heparin) 5,000 unit SUBCUT Q8H HANNAH Last Admin: 01/10/20 13:02 Dose: 5,000 unit Documented by: Piperacillin Sod/Tazobactam (Sod 3.375 gm/ Sodium Chloride) 50 mls @ 12.5 mls/hr IV Q8H HANNAH; Protocol Last Admin: 01/13/20 08:55 Dose: 12.5 mls/hr Documented by: Dextrose (D5w) 500 mls @ 100 mls/hr IV ONCE PRN; Protocol PRN Reason: Adult Acute Hypoglycemia Prot Levofloxacin/Dextrose (Levaquin-D5w) 750 mg in 150 mls @ 100 mls/hr IV Q48H HANNAH; Protocol Last Admin: 01/11/20 22:07 Dose: 100 mls/hr Documented by: Insulin Aspart (Novolog) 0 unit SUBCUT WM&BEDTIME HANNAH; Protocol Last Admin: 01/13/20 12:49 Dose: 2 unit Documented by: Methylprednisolone Sodium Succinate (Solu-Medrol) 40 mg IVP Q6H [facility] Last Admin: 01/13/20 08:56 Dose: 40 mg Documented by: Montelukast Sodium (Singulair) 10 mg PO DAILY [facility] Last Admin: 01/13/20 08:56 Dose: 10 mg Documented by: Pantoprazole Sodium (Protonix) 40 mg PO DAILY [facility] Last Admin: 01/13/20 08:56 Dose: 40 mg Documented by: Prednisone (Prednisone) 40 mg PO DAILY [facility] Last Admin: 01/12/20 08:59 Dose: 40 mg Documented by: Vitals/I&O/Wt Last Vital Signs Temp 97.9 F 01/13/20 03:25 Pulse 46 L 01/13/20 06:27 Resp 20 H 01/13/20 03:25 BP 117/44 01/13/20 03:25 Pulse Ox 92 01/13/20 06:27 01/12/20 01/13/20 01/13/20 22:59 06:59 14:59 Intake Total 272 / 1002.000 350 / 1352.000 Output Total 350 / 350 800 / 1150 Balance -78 / 652.000 -450 / 202.000 Cumulative I&O 01/07/20 16:16 thru 01/13/20 05:17 Intake Total 7572.000 Output Total 4750 Balance 2822.000 Weight last 48 hrs Weight 206 lb Weight 211 lb 9.6 oz Physical Exam Narrative: EXAM NARRATIVE: GENERAL: Patient is lying in bed in no acute distress NECK: No jugular vein distension. HEENT: Pupils equal round reactive to light, mild pallor. No icterus HEART: Regular. No murmur, rub or gallop. LUNGS: Coarse bilateral breath sounds; diffuse rhonchi + ABDOMEN: Soft, nontender and nondistended. Positive bowel sounds. No guarding, rebound or tenderness. CENTRAL NERVOUS SYSTEM: Awake alert oriented x3 no focal neurological deficits EXTREMITIES: No edema or cyanosis noted Data : 01/13/20 03:20 01/13/20 03:20 Micro: Microbiology 01/12/20 21:30 C.difficile Toxin B Gene (PCR) - Final Stool - Stool Aspirate 01/07/20 17:43 Blood Culture - Final Blood NO GROWTH AFTER 5 DAYS 01/07/20 18:24 Blood Culture - Final Blood NO GROWTH AFTER 5 DAYS A&P Assessment and plan (1) AV heart block: Patient has A-V dissociation with junctional escape however heart rate remain in low 50s. He has not improved in the last few days. For now we will continue to monitor him since he is stable once he will be infection free we will proceed with dual-chamber pacemaker if rhythm persist. Status: Acute (2) Hypoxia: Pneumonia/COPD exacerbation continue as per primary team Status: Acute (3) CAD (coronary artery disease): Stable from a coronary disease perspective. Continue medicine Status: Chronic Qualifiers: Coronary Disease-Associated Artery/Lesion type: [place] artery [place] vs. transplanted heart: [place] heart Associated angina: without angina Qualified Code(s): I25.10 - Atherosclerotic heart disease of [place] coronary artery without angina pectoris (4) Congestive heart failure: Appear to be compensated. Status: Acute Qualifiers: Heart failure chronicity: chronic Heart failure type: diastolic Qualified Code(s): I50.32 - Chronic diastolic (congestive) heart failure (5) HAZEL (acute kidney injury): Continue to monitor appeared to be stable Status: Acute (6) Pneumonia: On broad spectrum antibiotics. Status: Acute Qualifiers: Pneumonia type: due to unspecified organism Laterality: bilateral Lung location: lower lobe of lung Qualified Code(s): J18.9 - Pneumonia, unspecified organism Additional A&P Information Hemoptysis : Patient continues to have hemoptysis macrocytic anemia History of DARIUS on CPAP Attestations Medical Necessity Statement*: Hospitalist team for management of hypoxia and pneumonia Coding Level of Care Code Acute Recycling Tech for Angelika Mckenzie Diagnoses AV heart block I44.30 Hypoxia R09.02 CAD (coronary artery disease) I25.10 Coronary Disease-Associated Artery/Lesion type: [place] artery [place] vs. transplanted heart: [place] heart Associated angina: without angina Congestive heart failure I50.32 Heart failure chronicity: chronic Heart failure type: diastolic HAZEL (acute kidney injury) N17.9 Pneumonia J18.9 Pneumonia type: due to unspecified organism Laterality: bilateral Lung location: lower lobe of lung
--- NOTE | 2020-01-13 07:36 | PC.NURSE ---
Initial Pt rounding Pt is awake, alert, oriented. Denies any pain, discomfort, or dizziness. He said his shortness of breath is about the same. Pt has coarse lung sounds. spO2 is 95% on 5 L/min. Assisted pt on sitting up in bed for breakfast. HR-47- 53, heart block.
[2020-01-13] MEDS: budesonide 0.5 mg/2 mL Neb 0.25 MG INHALATION ×2 (08:44→20:09)
[2020-01-13] MEDS: piperacillin-tazobactam 3.375 GM in sodium chloride 0.9% (plus) 50 ML IV ×2 (08:55→16:05)
[2020-01-13] MEDS: atorvastatin 40 mg Tablet PO (08:56)
[2020-01-13] MEDS: montelukast sodium 10 mg Tablet PO (08:56)
[2020-01-13] MEDS: pantoprazole DR 40 mg Tablet PO (08:56)
[2020-01-13] MEDS: azithromycin 250 mg Tablet 500 MG PO (10:19)
--- NOTE | 2020-01-13 10:41 | PC.CHAP ---
Pastoral Care Encounter/Spiritual Assessment Type of Contact [] Declined restorative coordinator visit [] Patient/Family/Request visit [] Outpatient visit [] Follow-up visit [] Physician referral [] Code/Alert [X] Routine visit [] Staff referral [] Actively dying [] Patient sleeping [] Family support [] [] Out of room [] Palliative care [] [] Receiving care in room [] Pre-surgical visit [] Trauma [] Long length of stay [] ICU visit [] Other: Relational/Emotional Strength [] Patient feels connected with others/family/visitors/staff [] Distress [] Loneliness/isolation [] Abandonment Spirituality of Patient [] Person of Kayla [] Attends Caodaism of their Kayla [] Believes in Prayer [] Reads Bible or Presybeterian materials [] There are Spiritual issues to be addressed Manager Grant Interventions [] Prayer [] Active listening [] Non-anxious presence [] Spiritual/emotional support [] Crisis/trauma care [] Spiritual counseling [] Bereavement support [] Provided bereavement packet [] Provided Bible/devotional materials [] Provided toy/stuffed animal, coloring book to patient or family member [] Provided Communion [] Anointing/[place] [] Salvation [] Completed spiritual assessment [] Other: Impact on Illness or Injury [] Angry [] Fearful [] Anxious [] Often cries [] Exhaustion [] Unable to work [] Unable to attend methodist [] Unable to walk/stand [] Unable to read [] Unable to drive [] Unable to eat/drink [] Unable to sleep [] Unable to be with family [] Patient intubated [] Other: Summary: I sensed patient didn't really want/need restorative coordinator visit, so i asked if i could keep him in my prayers, and he agreed. :) Time spent with patient: <5
[2020-01-13 12:10] LABS: Glucose Point of Care 179 mg/dL (70-110)
--- NOTE | 2020-01-13 15:14 | PC.NURSE ---
Pt sitting on the side of the bed No new complaints at this time. 5 L/min NC w/Spo2 of 92-94%. Asymptomatic HR of 51-55 in 3rd degree heart block. Will keep monitoring.
[2020-01-13 16:49] LABS: Glucose Point of Care 156 mg/dL (70-110)
--- NOTE | 2020-01-13 16:54 | PC.NURSE ---
Addendum entered by Florina Calix RN 01/13/20 17:06: He is sitting on the side of the bed, eating his dinner while talking on the phone. Pt denies any difficulty clearing his secretions and changes to his breathing status. Will keep monitoring. Original Note: Hemoptysis Pt reported he coughed up dark red blood in the tissue paper. Noted maricarmen dark red blood streaked in the tissue paper. Pt stated he had this episode before. He denies any pain, increasing SOB. spO2 varies between 88% to 93% on 5 L/min. notified of the episode via secure messaging. Will keep monitoring for increasing episodes.
--- NOTE | 2020-01-13 16:57 | PM.PN ---
Subjective Subjective: Interval history: Continues to have some hemoptysis, persistent bradycardia, remains on 5 L nasal cannula. Noted drop in hemoglobin today from 8.2->7.9, received dose of Lasix, stable renal function. Has had multiple loose bowel movements, no blood noted, witnessed by nursing staff. No other bleeding noted. Denies worsening shortness of breath when sitting up, chest pain, lightheadedness/dizziness. Medications: Reviewed: Yes Medication Review Details: Active Medications Generic Name Dose Route Start Last Admin Trade Name Freq PRN Reason Stop Dose Admin Albuterol/Ipratrop ium 3 ml 01/07/20 21:28 Duoneb INHALATION Q6H PRN SHORTNESS OF YASMINE TH Albuterol/Ipratrop ium 3 ml 01/07/20 21:28 01/13/20 16:14 Duoneb INHALATION 3 ml Q6H.RESPIRATORY S CH Administration Atorvastatin Calci um 40 mg 01/08/20 09:00 01/13/20 08:56 Lipitor PO 40 mg DAILY HANNAH Administration Azithromycin 500 mg 01/13/20 09:00 01/13/20 10:19 Zithromax PO 500 mg DAILY HANNAH Administration Protocol Budesonide 0.25 mg 01/10/20 20:00 01/13/20 08:44 Pulmicort INHALATION 0.25 mg BID.RESPIRATORY S CH Administration Dextrose 25 ml 01/08/20 10:05 D50w IVP ONCE PRN hypoglycemia prot ocol Protocol Dextrose 50 ml 01/08/20 10:05 D50w IVP PRN PRN hypoglycemia prot ocol Protocol Fluticasone Propio jay 1 spray 01/08/20 09:00 01/13/20 10:12 Flonase INTRANASAL Not Given DAILY HANNAH Glucagon 1 mg 01/08/20 10:05 Glucagen IM ONCE PRN Adult Acute Hypog lycemia Prot. Protocol Heparin Sodium (Be ef Lung) 5,000 unit 01/07/20 21:28 01/10/20 13:02 Heparin SUBCUT 5,000 unit Q8H HANNAH Administration Piperacillin Sod/T azobactam 50 mls @ 12.5 mls /hr 01/07/20 23:00 01/13/20 16:05 Sod 3.375 gm/ So dium Chloride IV 12.5 mls/hr Q8H HANNAH Administration Protocol Dextrose 500 mls @ 100 mls /hr 01/08/20 10:05 D5w IV ONCE PRN Adult Acute Hypog lycemia Prot Protocol Levofloxacin/Dextr ose 750 mg in 150 mls @ 100 mls/hr 01/09/20 22:30 01/11/20 22:07 Levaquin-D5w IV 100 mls/hr Q48H HANNAH Administration Protocol Insulin Aspart 0 unit 01/08/20 12:00 01/13/20 12:49 Novolog SUBCUT 2 unit WM&BEDTIME HANNAH Administration Protocol Methylprednisolone Sodium Succinate 40 mg 01/12/20 15:15 01/13/20 16:01 Solu-Medrol IVP 40 mg Q6H HANNAH Administration Montelukast Sodium 10 mg 01/08/20 09:00 01/13/20 08:56 Singulair PO 10 mg DAILY HANNAH Administration Pantoprazole Sodiu m 40 mg 01/08/20 10:15 01/13/20 08:56 Protonix PO 40 mg DAILY HANNAH Administration Prednisone 40 mg 01/07/20 21:28 01/12/20 08:59 Prednisone PO 40 mg DAILY HANNAH Administration No Known Allergies Allergy (Verified 01/07/20 17:46) Vitals/I&O/Wt Last Vital Signs Temp 97.8 F 01/13/20 12:00 Pulse 48 L 01/13/20 16:15 Resp 18 01/13/20 16:15 BP 126/51 01/13/20 12:00 Pulse Ox 93 01/13/20 16:15 01/13/20 01/13/20 01/13/20 06:59 14:59 22:59 Intake Total 350 / 1352.000 522 / 522 Output Total 800 / 1150 200 / 200 Balance -450 / 202.000 322 / 322 Weight last 48 hrs Weight 93.44 kg Weight 95.98 kg Physical Exam Const: COMMON NORMALS: no acute distress, patient oriented x3 and alert GENERAL APPEARANCE: cooperative and comfortable NUTRITIONAL APPEARANCE: obese morbidly obese ORIENTATION/CONSCIOUSNESS: Yes awake OTHER: -looks appropriate for age; fatigued HENMT: COMMON NORMALS: normocephalic, atraumatic, hearing grossly normal bilaterally and moist oral mucous membranes HEAD & SCALP: normocephalic and atraumatic Eye: COMMON NORMALS: Equal, round and reactive pupils present, EOMs intact bilaterally and conjunctivae normal CONJUNCTIVA: Yes conjunctivae normal PUPIL: Yes Equal, round and reactive pupils present Neck/C-Spine: COMMON NORMALS: full ROM GENERAL: Yes normal visual inspection and Yes trachea midline Chest: CHEST: Yes Symmetrical chest wall rise Resp: COMMON NORMALS: normal respiratory effort, No retractions and No use of accessory muscles EFFORT & INSPECTION: Yes able to speak in complete sentences, Yes symmetric chest movement and No tachypneic AUSCULTATION: rhonchi right upper and right lower, wheezes expiratory wheezes and diminished lung sounds bilateral in the lower lung patel OTHER: -on 5 L NC, coarse breath sounds particularly on the R; hemoptysis Cardio: COMMON NORMALS: regular rhythm, S1 normal heart sound present, S2 normal heart sound present and No murmurs present (Cardio) RATE: bradycardic RHYTHM: regular rhythm HEART SOUNDS: S1 normal heart sound present and S2 normal heart sound present GI: COMMON NORMALS: Normal to inspection, nondistended, normoactive bowel sounds present, Soft to palpation and non-tender INSPECTION: Yes central obesity PALPATION: Yes Soft to palpation Back/Pelvis: COMMON NORMALS: thoracic and lumbar spine normal to inspection Extremity: COMMON NORMALS: normal to inspection, full ROM, no clubbing, cyanosis or edema and no pedal edema Neuro: COMMON NORMALS: patient oriented x3, moves all extremities, no focal motor deficits and no sensory deficits noted SENSORIUM/ORIENTATION: Yes alert Psych: COMMON NORMALS: mental status grossly normal, Normal thought process present, cooperative, normal affect and speech normal SPEECH: Yes normal speech THOUGHT PROCESS: Normal thought process present Skin: COMMON NORMALS: no rashes or lesions noted, no jaundice, no petechiae and no mottling GENERAL SKIN EXAM: no rashes or lesions noted Data : 01/13/20 03:20 01/13/20 03:20 Micro: Microbiology 01/12/20 21:30 C.difficile Toxin B Gene (PCR) - Final Stool - Stool Aspirate 01/07/20 17:43 Blood Culture - Final Blood NO GROWTH AFTER 5 DAYS 01/07/20 18:24 Blood Culture - Final Blood NO GROWTH AFTER 5 DAYS A&P Assessment and plan (1) Pneumonia: -recently diagnosed with community-acquired pneumonia, had been on treatment with levaquin -recently tested for COVID-19, negative -on Zosyn, Levaquin; added Azithromycin (for atypical coverage); off Vanc as MRSA negative -blood cx: prelim negative -imaging reviewed -afebrile, decreased leukocytosis; continue to trend WBC and monitor vital signs -sputum cx sent from PCP including mycobacterial smear; prelim negative for AFB. Sputum cx positive for Pseudomonas aeruginosa, sensitivity noted -repeat sputum cx-mixed christiano, gram stain positive for GPC -bacterial antigens and Legionella negative -close monitoring of respiratory status -home oxygen evaluation prior to d/c if still oxygen dependent -repeat CXR (01/10) to monitor progression given increased oxygen requirement, coarse breath sounds. With increased oxygen requirement, more coarseness on auscultation, will order repeat CT chest without contrast due to renal impairment Status: Acute Qualifiers: Laterality: bilateral Lung location: lower lobe of lung Pneumonia type: due to unspecified organism Qualified Code(s): J18.9 - Pneumonia, unspecified organism (2) Hemoptysis: -hemoptysis noted with continued drop in Hg (9.1->8.7->8.2->7.9 -continue to monitor H/H and continue to hold AC; INR-1.04; has been off heparin x 72 hrs -may need to discuss bronchoscopy Status: Acute (3) AV heart block: -noted high grade AV block and bradycardia -BB on hold, had been on Coreg 6.25 mg BID prior to hospitalization -telemetry monitoring -HRs in the 40-50 range, BP stable; continue to monitor vital signs -Echo: EF=55%, G1DD, mild LVH, trace AR, mild-moderate MR, trace to mild TR; previous done in 03/2019 showed EF=49%, G1DD -Cardiology consult by Dr. Yadva and Dr. Florez appreciated -if persistent and symptomatic, may need pacemaker; anticipate discharge with event monitoring to allow for completion of antibiotic treatment course and resolution of pneumonia Status: Acute (4) Bradycardia: -noted above Status: Acute (5) HAZEL (acute kidney injury): -HAZEL on CKD stage 2 -baseline Cr wnl -slight worsening in renal function likely due to diuresis, continue to monitor -avoid nephrotoxins, renally dose meds Status: Acute (6) COPD exacerbation: -acute COPD exacerbation; likely triggered by pneumonia -not oxygen dependent at baseline; may need home oxygen evaluation prior to d/c -continue to monitor respiratory status -on steroids (switched to IV), Neb treatments and antibiotics -supplemental oxygen as needed Status: Acute (7) CAD (coronary artery disease): -follows up with Dr. Florez -s/p CABG Status: Chronic Qualifiers: Associated angina: without angina Coronary Disease-Associated Artery/Lesion type: [place] artery [place] vs. transplanted heart: [place] heart Qualified Code(s): I25.10 - Atherosclerotic heart disease of [place] coronary artery without angina pectoris (8) DARIUS (obstructive sleep apnea): -CPAP qhs Status: Chronic (9) CKD (chronic kidney disease) stage 2, GFR 60-89 ml/min: -as noted above Status: Chronic (10) Chronic anemia: -continue to monitor H/H particularly with hemoptysis Status: Acute (11) HTN (hypertension): -normotensive -continue to monitor vitals -Coreg on hold due to bradycardia; ACEi on hold due to renal impairment Status: Chronic Qualifiers: Hypertension type: essential hypertension Qualified Code(s): I10 - Essential (primary) hypertension (12) Non-insulin dependent diabetes mellitus: -A1c-5.9 -accuchecks, ISS, hypoglycemia precautions -hold metformin -anticipate hyperglycemia with steroid use and acute illness Status: Chronic (13) Obesity: -BMI-30 kg/m2 Status: Chronic Qualifiers: Body mass index: BMI 30.0-30.9 Obesity classification: adult class 1 (BMI 30 - 34.9) Obesity type: due to excess calories Serious obesity comorbidity presence: with serious comorbidity Qualified Code(s): E66.09 - Other obesity due to excess calories; Z68.30 - Body mass index (BMI) 30.0-30.9, adult Additional A&P Information -GI ppx with PPI -DVT ppx with heparin; on hold due to hemoptysis -Dispo: home -Code status: FULL code Attestations Medical Necessity Statement*: Patient requires hospitalization for continued treatment of pneumonia on broad-spectrum IV antibiotic coverage, hemoptysis with gradually decreasing hemoglobin and continue telemetry monitoring secondary to bradycardia. Time Spent in Patient Care: 16 - 35 minutes (>than 50% of time spent in counselling and/or direct pt care on unit). Coding Level of Care Code Acute Coding Tech for g Fwd Exam Comprehensive Diagnoses Pneumonia J18.9 Laterality: bilateral Lung location: lower lobe of lung Pneumonia type: due to unspecified organism Hemoptysis R04.2 AV heart block I44.30 Bradycardia R00.1 HAZEL (acute kidney injury) N17.9 COPD exacerbation J44.1 CAD (coronary artery disease) I25.10 Associated angina: without angina Coronary Disease-Associated Artery/Lesion type: [place] artery [place] vs. transplanted heart: [place] heart DARIUS (obstructive sleep apnea) G47.33 CKD (chronic kidney disease) stage 2, GFR 60-89 ml/min N18.2 Chronic anemia D64.9 HTN (hypertension) I10 Hypertension type: essential hypertension Non-insulin dependent diabetes mellitus Obesity E66.09; Z68.30 Body mass index: BMI 30.0-30.9 Obesity classification: adult class 1 (BMI 30 - 34.9) Obesity type: due to excess calories Serious obesity comorbidity presence: with serious comorbidity
--- NOTE | 2020-01-13 19:21 | PC.NURSE ---
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 Dr. Caba examined and at bedside with discussion regarding on pt's treatment plans. Rory Croft at bedside as well. Pt verbalizes understanding. Pleased with cares provided.
--- NOTE | 2020-01-13 19:21 | PC.NURSE ---
Rounding: Patient resting in bed on 5L NC. Patient denied any complaints at this time. Patient had a sputum cup with dark bloody sputum in it. Patient stated that the Dr. Caba wanted him to cough the sputum into it to see how much he was coughing up a shift. Call light within reach. Bedside report done with RAMÍREZ Aponte. Will continue to franky.
[2020-01-13 20:40] LABS: Glucose Point of Care 193 mg/dL (70-110)
[2020-01-13] MEDS: levofloxacin-dextrose 5 % 750 MG/150 ML PREMIX 100 MG IV (22:36)
[2020-01-14] VITALS (27 sets, daily range): BP systolic 115–159; BP diastolic 34–59; PULSE 45–75; RESP 18–53; TEMP 35.8–36.6; O2SAT 88–96; BMI 29.7
[2020-01-14] MEDS: piperacillin-tazobactam 3.375 GM in sodium chloride 0.9% (plus) 50 ML IV ×4 (00:09→23:38)
--- NOTE | 2020-01-14 00:26 | PC.NURSE ---
Rounding: Assessment completed. Patient resting in bed and side rails up x2. bed in low position, an Denies any complaints or needs at this time. SCD'd in place and call light in reach. Will continue to monitor.
[2020-01-14] MEDS: ipratropium-albuterol 3 mL Neb INHALATION ×4 (02:08→21:14)
[2020-01-14 03:08] LABS: Basophils % 0.1 %; Hematocrit 23.6 % (42.0-52.0); Hemoglobin 7.3 g/dL (11.7-16.6); Lymphocytes % 6.1 %; Mean Corpuscular HGB Conc 30.9 g/dL (30.0-36.0); Mean Corpuscular Hemoglobin 30.5 pg (28.0-34.0); Mean Corpuscular Volume 98.7 fL (80-94); Mean Platelet Volume 10.9 fL (7.4-10.4); Monocytes # 0.4 10^3/uL (0.2-0.9); Monocytes % 2.4 %; Neutrophils # 15.2 10^3/uL (1.8-7.7); Neutrophils % 90.6 %; Nucleated Red Blood Cells % 0.1 %; Platelet Count 204 10^3/cmm (130-400); Red Blood Count 2.39 10^6/uL (4.1-5.3); Red Cell Distribution Width 15.3 % (12.1-15.1); White Blood Count 16.8 10^3/uL (4.0-10.0)
[2020-01-14 03:19] LABS: Anion Gap 15.2 (5-19); Blood Urea Nitrogen 43 mg/dL (8-23); Calcium 8.6 mg/dL (8.5-10.5); Carbon Dioxide 25 mmol/L (22-29); Chloride 108 mmol/L (98-107); Glucose 143 mg/dL (65-115); Osmolality Calculated 298 mOsm/kg (285-295); Potassium 4.2 mmol/L (3.5-5.1); Sodium 144 mmol/L (136-145)
--- NOTE | 2020-01-14 04:34 | PC.NURSE ---
End of shift: Patient had a uneventful shift. Patient has rested well. Patient has been on 5L NC and oxygen saturations have ranged from 88 to 94%. Patient while getting up to bedside commode did say he felt short of breath but it was like it has been feeling for the last couple of days. Patient is sitting on the side of his bed currently with the call light within reach. Will continue to monitor.
[2020-01-14 06:20] LABS: Glucose Point of Care 145 mg/dL (70-110)
--- NOTE | 2020-01-14 07:40 | PC.NURSE ---
patient reports he is doing about the same this am; continues to intermittently cough up maricarmen blood, O2 5 L NC; patient denies any pain or discomfort. Assisted patient to sitting on side of bed for breakfast. Will continue nursing cares.
--- NOTE | 2020-01-14 08:06 | XR_ITS ---
WS: [id number] PORTABLE CHEST HISTORY: progression of pneumonia COMPARISON: 01/11/2020 Since the prior examination similar compared opacifications bilaterally have improved while others arce ve progressed. Slightly improved RIGHT lower lobe consolidation. There is progression of mild diffuse interstitial thickening and coarsening throughout both lungs. Minimal blunting of the costophrenic a ngles. Cardiac size: Moderately enlarged cardiac silhouette. Mediastinum/Aorta: Status post median sternotomy. No osseous abnormality seen. XR/XR chest 1V portable [id number] IMPRESSION: 1. Slightly improved consolidation in the RIGHT lower lobe. 2. Otherwise diffuse mild progression of edema or pneumonia.
[2020-01-14] MEDS: atorvastatin 40 mg Tablet PO (09:08)
[2020-01-14] MEDS: montelukast sodium 10 mg Tablet PO (09:08)
[2020-01-14] MEDS: pantoprazole DR 40 mg Tablet PO (09:08)
[2020-01-14] MEDS: azithromycin 250 mg Tablet 500 MG PO (09:09)
[2020-01-14] MEDS: budesonide 0.5 mg/2 mL Neb 0.25 MG INHALATION ×2 (09:11→21:14)
--- NOTE | 2020-01-14 09:43 | PC.NURSE ---
Called to patient room by patient with patient complains of chest pain and discomfort rated 4-5/10 HR 47 o2 92% 5L NC Blood pressure 151/43 RR 21 Patient describes pain as more of pressure and discomfort that has quickly resolved no interventions indicated at this time; will continue to monitor. Dr Caba notified.
--- NOTE | 2020-01-14 09:50 | PC.SOCIAL ---
IMM Updated Updated pt Pg 2 IMM. Pt verbally understands. No questions voiced. Provided pt a copy. Signed, dated, & timed the copy in chart.
--- NOTE | 2020-01-14 10:32 | P.PN_ITS ---
Subjective Subjective: Interval history: Remains on 5 L nasal cannula, pneumonia progression noted on repeat chest x-ray this morning, hemoglobin continues to trend down, down from 7.9 yesterday to 7.3 today. Had 200 mL urine output overnight, continued renal impairment though creatinine is slightly improved today, remains on broad-spectrum IV antibiotic coverage and steroids. Increased leukocytosis from 12.1->16.8. Afebrile. Remains bradycardic. But this afternoon patient's oxygen requirement had increased to 8 L due to noted. Case discussed with Dr. Mcdaniels in terms of need for bronchoscopy, will be done tomorrow at 7 AM so patient will be n.p.o. after midnight. PM hemoglobin is 7.5 so will likely need to transfuse PRBCs in anticipation of procedure. Patient is agreeable to this. Medications: Reviewed: Yes Medication Review Details: Active Medications Generic Name Dose Route Start Last Admin Trade Name Freq PRN Reason Stop Dose Admin Albuterol/Ipratrop ium 3 ml 01/07/20 21:28 Duoneb INHALATION Q6H PRN SHORTNESS OF YASMINE TH Albuterol/Ipratrop ium 3 ml 01/07/20 21:28 01/14/20 09:11 Duoneb INHALATION 3 ml Q6H.RESPIRATORY S CH Administration Atorvastatin Calci um 40 mg 01/08/20 09:00 01/14/20 09:08 Lipitor PO 40 mg DAILY HANNAH Administration Azithromycin 500 mg 01/13/20 09:00 01/14/20 09:09 Zithromax PO 500 mg DAILY HANNAH Administration Protocol Budesonide 0.25 mg 01/10/20 20:00 01/14/20 09:11 Pulmicort INHALATION 0.25 mg BID.RESPIRATORY S CH Administration Dextrose 25 ml 01/08/20 10:05 D50w IVP ONCE PRN hypoglycemia prot ocol Protocol Dextrose 50 ml 01/08/20 10:05 D50w IVP PRN PRN hypoglycemia prot ocol Protocol Fluticasone Propio jay 1 spray 01/08/20 09:00 01/14/20 09:09 Flonase INTRANASAL Not Given DAILY HANNAH Glucagon 1 mg 01/08/20 10:05 Glucagen IM ONCE PRN Adult Acute Hypog lycemia Prot. Protocol Heparin Sodium (Be ef Lung) 5,000 unit 01/07/20 21:28 01/10/20 13:02 Heparin SUBCUT 5,000 unit Q8H HANNAH Administration Piperacillin Sod/T azobactam 50 mls @ 12.5 mls /hr 01/07/20 23:00 01/14/20 07:28 Sod 3.375 gm/ So dium Chloride IV 12.5 mls/hr Q8H HANNAH Administration Protocol Dextrose 500 mls @ 100 mls /hr 01/08/20 10:05 D5w IV ONCE PRN Adult Acute Hypog lycemia Prot Protocol Levofloxacin/Dextr ose 750 mg in 150 mls @ 100 mls/hr 01/09/20 22:30 01/14/20 00:09 Levaquin-D5w IV Infused Q48H HANNAH Infusion Protocol Insulin Aspart 0 unit 01/08/20 12:00 01/14/20 07:28 Novolog SUBCUT 2 unit WM&BEDTIME HANNAH Administration Protocol Methylprednisolone Sodium Succinate 40 mg 01/12/20 15:15 01/14/20 09:09 Solu-Medrol IVP 40 mg Q6H HANNAH Administration Montelukast Sodium 10 mg 01/08/20 09:00 01/14/20 09:08 Singulair PO 10 mg DAILY HANNAH Administration Pantoprazole Sodiu m 40 mg 01/08/20 10:15 01/14/20 09:08 Protonix PO 40 mg DAILY HANNAH Administration Prednisone 40 mg 01/07/20 21:28 01/12/20 08:59 Prednisone PO 40 mg DAILY HANNAH Administration No Known Allergies Allergy (Verified 01/07/20 17:46) Vitals/I&O/Wt Last Vital Signs Temp 97.9 F 01/14/20 07:48 Pulse 55 L 01/14/20 09:23 Resp 18 01/14/20 09:15 BP 116/36 01/14/20 07:45 Pulse Ox 93 01/14/20 09:15 01/13/20 01/14/20 01/14/20 22:59 06:59 14:59 Intake Total 370 / 892 320 / 1212 360 / 360 Output Total 200 / 400 Balance 170 / 492 320 / 812 360 / 360 Weight last 48 hrs Weight 93.894 kg Weight 93.44 kg Physical Exam Const: COMMON NORMALS: no acute distress, patient oriented x3 and alert GENERAL APPEARANCE: cooperative and comfortable NUTRITIONAL APPEARANCE: obese morbidly obese ORIENTATION/CONSCIOUSNESS: Yes awake OTHER: -looks appropr iate for age; fatigued HENMT: COMMON NORMALS: normocephalic, atraumatic, hearing grossly normal bilaterally and moist oral mucous membranes HEAD & SCALP: normocephalic and atraumatic Eye: COMMON NORMALS: Equal, round and reactive pupils present, EOMs intact bilaterally and conjunctivae normal CONJUNCTIVA: Yes conjunctivae normal PUPIL: Yes Equal, round and reactive pupils present Neck/C-Spine: COMMON NORMALS: full ROM GENERAL: Yes normal visual inspection and Yes trachea midline Chest: CHEST: Yes Symmetrical chest wall rise Resp: COMMON NORMALS: normal respiratory effort, No retractions and No use of accessory muscles EFFORT & INSPECTION: Yes able to speak in complete sentences, Yes symmetric chest movement and No tachypneic AUSCULTATION: rhonchi right upper and right lower, wheezes expiratory wheezes and diminished lung sounds bilateral in the lower lung patel OTHER: -on 8 L NC, coarse breath sounds particularly on the R; hemoptysis Cardio: COMMON NORMALS: regular rhythm, S1 normal heart sound present, S2 normal heart sound present and No murmurs present (Cardio) RATE: bradycardic RHYTHM: regular rhythm HEART SOUNDS: S1 normal heart sound present and S2 normal heart sound present GI: COMMON NORMALS: Normal to inspection, nondistended, normoactive bowel sounds present, Soft to palpation and non-tender INSPECTION: Yes central obesity PALPATION: Yes Soft to palpation Back/Pelvis: COMMON NORMALS: thoracic and lumbar spine normal to inspection Extremity: COMMON NORMALS: normal to inspection, full ROM, no clubbing, cyanosis or edema and no pedal edema Neuro: COMMON NORMALS: patient oriented x3, moves all extremities, no focal motor deficits and no sensory deficits noted SENSORIUM/ORIENTATION: Yes alert Psych: COMMON NORMALS: mental status grossly normal, Normal thought process present, cooperative, normal affect and speech normal SPEECH: Yes normal speech THOUGHT PROCESS: Normal thought process present Skin: COMMON NORMALS: no rashes or lesions noted, no jaundice, no petechiae and no mottling GENERAL SKIN EXAM: no rashes or lesions noted Data : 01/14/20 13:20 01/14/20 02:55 A&P Assessment and plan (1) Pneumonia: -recently diagnosed with community-acquired pneumonia, had been on treatment with levaquin -recently tested for COVID-19, negative -on Zosyn, Levaquin, Azithromycin (for atypical coverage); off Vanc as MRSA negative -blood cx: negative -imaging reviewed -afebrile, increased leukocytosis; continue to trend WBC and monitor vital signs -sputum cx sent from PCP including mycobacterial smear; prelim negative for AFB. Sputum cx positive for Pseudomonas aeruginosa, sensitivity noted. Repeat sputum cx-mixed christiano, gram stain positive for GPC -bacterial antigens and Legionella negative -close monitoring of respiratory status -home oxygen evaluation prior to d/c if still oxygen dependent -repeat imaging including CT chest shows progression of pneumonia CXR Status: Acute Qualifiers: Laterality: bilateral Lung location: lower lobe of lung Pneumonia type: due to unspecified organism Qualified Code(s): J18.9 - Pneumonia, unspecified organism (2) Hemoptysis: -hemoptysis noted with continued drop in Hg (9.1--->7.3) -continue to monitor H/H and continue to hold AC; INR-1.04; has been off heparin x > 72 hrs -Consult by Dr. Mcdaniels appreciated; bronchoscopy tomorrow AM; NPO after midnight -transfuse if continued drop, symptomatic Status: Acute (3) AV heart block: -noted high grade AV block and bradycardia -BB on hold, had been on Coreg 6.25 mg BID prior to hospitalization -telemetry monitoring -HRs in the 40-50 range, BP stable; continue to monitor vital signs -Echo: EF=55%, G1DD, mild LVH, trace AR, mild-moderate MR, trace to mild TR; previous done in 03/2019 showed EF=49%, G1DD -Cardiology consult by Dr. Yadav and Dr. Florez appreciated -if persistent and symptomatic, may need pacemaker; anticipate discharge with event monitoring to allow for completion of antibiotic treatment course and resolution of pneumonia Status: Acute (4) Bradycardia: -noted above Status: Acute (5) HAZEL (acute kidney injury): -HAZEL on CKD stage 2 -baseline Cr wnl -slight worsening in renal function likely due to diuresis, continue to monitor -avoid nephrotoxins, renally dose meds Status: Acute (6) COPD exacerbation: -acute COPD exacerbation; likely triggered by pneumonia -not oxygen dependent at baseline; may need home oxygen evaluation prior to d/c -continue to monitor respiratory status -on steroids (switched to IV), Neb treatments and antibiotics -supplemental oxygen as needed Status: Acute (7) CAD (coronary artery disease): -follows up with Dr. Florez -s/p CABG Status: Chronic Qualifiers: Associated angina: without angina Coronary Disease-Associated Artery/Lesion type: enterprise artery [place] vs. transplanted heart: enterprise heart Qualified Code(s): I25.10 - Atherosclerotic heart disease of enterprise coronary artery without angina pectoris (8) DARIUS (obstructive sleep apnea): -CPAP qhs Status: Chronic (9) CKD (chronic kidney disease) stage 2, GFR 60-89 ml/min: -as noted above Status: Chronic (10) Chronic anemia: -continue to monitor H/H particularly with hemoptysis Status: Acute (11) HTN (hypertension): -normotensive -continue to monitor vitals -Coreg on hold due to bradycardia; ACEi on hold due to renal impairment Status: Chronic Qualifiers: Hypertension type: essential hypertension Qualified Code(s): I10 - Essential (primary) hypertension (12) Non-insulin dependent diabetes mellitus: -A1c-5.9 -accuchecks, ISS, hypoglycemia precautions -hold metformin -anticipate hyperglycemia with steroid use and acute illness Status: Chronic (13) Obesity: -BMI-30 kg/m2 Status: Chronic Qualifiers: Body mass index: BMI 30.0-30.9 Obesity classification: adult class 1 (BMI 30 - 34.9) Obesity type: due to excess calories Serious obesity comorbidity presence: with serious comorbidity Qualified Code(s): E66.09 - Other obesity due to excess calories; Z68.30 - Body mass index (BMI) 30.0-30.9, adult Additional A&P Information -GI ppx with PPI -DVT ppx with SCDs, heparin on hold due to hemoptysis and worsening anemia -Dispo: home -Code status: FULL code Attestations Medical Necessity Statement*: Patient requires hospitalization for continued treatment of pneumonia with continued hemoptysis and worsening anemia, pending bronchoscopy. Time Spent in Patient Care: 16 - 35 minutes (>than 50% of time spent in counselling and/or direct pt care on unit) . Coding Level of Care Code Acute [facility] Fwd Exam Comprehensive Diagnoses Pneumonia J18.9 Laterality: bilateral Lung location: lower lobe of lung Pneumonia type: due to unspecified organism Hemoptysis R04.2 AV heart block I44.30 Bradycardia R00.1 HAZEL (acute kidney injury) N17.9 COPD exacerbation J44.1 CAD (coronary artery disease) I25.10 Associated angina: without angina Coronary Disease-Associated Artery/Lesion type: enterprise artery [place] vs. transplanted heart: enterprise heart DARIUS (obstructive sleep apnea) G47.33 CKD (chronic kidney disease) stage 2, GFR 60-89 ml/min N18.2 Chronic anemia D64.9 HTN (hypertension) I10 Hypertension type: essential hypertension Non-insulin dependent diabetes mellitus Obesity E66.09; Z68.30 Body mass index: BMI 30.0-30.9 Obesity classification: adult class 1 (BMI 30 - 34.9) Obesity type: due to excess calories Serious obesity comorbidity presence: with serious comorbidity
[2020-01-14 11:14] LABS: Glucose Point of Care 238 mg/dL (70-110)
--- NOTE | 2020-01-14 11:41 | PC.NURSE ---
Dr garcia at bedside for assessment and to disscuss POC; patient asked this nurse to call and update Sophia with what the doctors POC was. Spoke with Sophia verbalized understanding of patients POC.
--- NOTE | 2020-01-14 12:19 | PC.NURSE ---
Patient reports decreased appetite at this time. Patient left with rodo to see if he wants to nibble at it.
--- NOTE | 2020-01-14 13:13 | PC.NURSE ---
Dr nath at bedside for POC and assessment New instructions to give Imdur 15 MG q12H starting now
[2020-01-14 13:35] LABS: Hematocrit 24.1 % (42.0-52.0); Hemoglobin 7.5 g/dL (11.7-16.6)
[2020-01-14] MEDS: isosorbide mononitrate ER 30 mg Tablet 15 MG PO (13:53)
--- NOTE | 2020-01-14 14:01 | PC.NURSE ---
notified Dr. Caba of patient Hgb level no new instructions at this time.
--- NOTE | 2020-01-14 15:28 | PC.RESP ---
Pt changed to 8lpm for low sats-Doctor notified.
--- NOTE | 2020-01-14 16:34 | PM.CONSULT ---
Providers/Reason For Consult Consulting Physican/Specialty*: Dr. Mcdaniels, cardiothoracic surgery Reason for Consult*: Hemoptysis Attending Physician: Veronica Caba MD Primary Care Provider: Hema Hartman MD History of Present Illness History of Present Illness Patience Salcedo is a 74 year old male who is been hospitalized since his admission presentation to the emergency department on January 06 with complaints of increasing dyspnea, cough, and easy fatigability for several weeks prior to presentation. He had been treated by his primary care provider as an outpatient with Levaquin for suspected pneumonia without improvement. Due to his earlier symptoms a CT scan of December 31 revealed moderate bilateral pleural effusions with compressive atelectasis bilaterally right greater than left. Negative for PE. He does have a long history for obstructive sleep apnea and COPD and does use a CPAP machine at night. He was also noted to be bradycardic in the 40s upon presentation. His lack of response to Levaquin, he was placed on Zosyn and vancomycin. He has been seen by cardiology and does appear to have a high degree AV heart block and dual-chamber pacemaker is being considered. Despite his bradycardia, he remains relatively asymptomatic from that. Complicating factors include history for CABG and COPD. During his hospitalization, while he initially appear to get better he has now worsened requiring 4 to 5 L nasal cannula oxygen. He also developed some hemoptysis which has slowly progressed over the past [address] Caba is requested bronchoscopy to assist with evaluation of this. Review of Systems Const: Reports: body aches, change in appetite, fatigue and snoring Eyes: Denies: change in vision Card: Reports: dyspnea on exertion Resp: Reports: dyspnea, productive cough, wheezing and hemoptysis GI: Reports: diarrhea Neuro: Denies: headache(s) or dizziness Psych: Denies: anxiety or depression Meds/Allergies Home Medications and Allergies Home Medications Medication Instructions Recorded Confirmed Last Taken Type lisinopril 5 mg tablet 5 mg PO DAILY #30 tab 12/04/19 01/07/20 01/07/20 Rx albuterol sulfate [Ventolin HFA] 2 inh INHALATION TID 01/07/20 01/07/20 01/07/20 History atorvastatin 40 mg PO DAILY 01/07/20 01/07/20 01/06/20 History carvedilol 6.25 mg PO DAILY 01/07/20 01/07/2001/06/20 History famotidine 20 mg PO DAILY 01/07/20 01/07/20 01/07/20 History fluticasone propionate 1 spray INTRANASAL DAILY 01/07/20 01/07/20 01/07/20 History garlic 1,000 mg PO DAILY 01/07/20 01/07/20 01/06/20 History metformin 500 mg PO BID 01/07/20 01/07/20 01/06/20 History montelukast 10 mg PO DAILY 01/07/20 01/07/20 01/07/20 History multivitamin [Multiple Vitamins] 1 tab PO DAILY 01/07/20 01/07/20 01/06/20 History omega 4-izp-vbo-fish oil [Fish Oil] 1 cap PO DAILY 01/07/20 01/07/20 01/06/20 History Allergies Allergy/AdvReac Type Severity Reaction Status Date / Time No Known Allergies Allergy Verified 01/07/20 17:46 Current Medications Current Medications Generic Name Dose Route Start Last Admin Trade Name Freq PRN Reason Stop Dose Admin Albuterol/Ipratropium 3 ml 01/07/20 21:28 01/14/20 15:06 Duoneb INHALATION 3 ml Q6H.RESPIRATORY HANNAH Administration Atorvastatin Calcium 40 mg 01/08/20 09:00 01/14/20 09:08 Lipitor PO 40 mg DAILY HANNAH Administration Azithromycin 500 mg 01/13/20 09:00 01/14/20 09:09 Zithromax PO 500 mg DAILY HANNAH Administration Protocol Budesonide 0.25 mg 01/10/20 20:00 01/14/20 09:11 Pulmicort INHALATION 0.25 mg BID.RESPIRATORY HANNAH Administration Fluticasone Propionate 1 spray 01/08/20 09:00 01/14/20 09:09 Flonase INTRANASAL Not Given DAILY HANNAH Heparin Sodium (Beef Lung) 5,000 unit 01/07/20 21:28 01/10/20 13:02 Heparin SUBCUT 5,000 unit Q8H HANNAH Administration Piperacillin Sod/Tazobactam 50 mls @ 12.5 mls/hr 01/07/20 23:00 01/14/20 15:32 Sod 3.375 gm/ Sodium Chloride IV 12.5 mls/hr Q8H HANNAH Administration Protocol Levofloxacin/Dextrose 750 mg in 150 mls @ 100 mls/hr 01/09/20 22:30 01/14/20 00:09 Levaquin-D5w IV Infused Q48H HANNAH Infusion Protocol Insulin Aspart 0 unit 01/08/20 12:00 01/14/20 11:47 Novolog SUBCUT 6 unit WM&BEDTIME HANNAH Administration Protocol Isosorbide Mononitrate 15 mg 01/14/20 13:15 01/14/20 13:53 Imdur PO 15 mg Q12H HANNAH Administration Methylprednisolone Sodium Succinate 40 mg 01/12/20 15:15 01/14/20 15:32 Solu-Medrol IVP 40 mg Q6H HANNAH Administration Montelukast Sodium 10 mg 01/08/20 09:00 01/14/20 09:08 Singulair PO 10 mg DAILY HANNAH Administration Pantoprazole Sodium 40 mg 01/08/20 10:15 01/14/20 09:08 Protonix PO 40 mg DAILY HANNAH Administration Prednisone 40 mg 01/07/20 21:28 01/12/20 08:59 Prednisone PO 40 mg DAILY HANNAH Administration PFSH Acute PFSH: Medical History CAD (coronary artery disease) Chronic anemia -baseline Hg around 10 CKD (chronic kidney disease) stage 2, GFR 60-89 ml/min -baseline Cr wnl COPD (chronic obstructive pulmonary disease) Fracture, femoral HTN (hypertension) Non-insulin dependent diabetes mellitus Obesity DARIUS (obstructive sleep apnea) Surgical History Hx of CABG Hx of cholecystectomy Family History Mother CAD (coronary artery disease) Social History Smoking and tobacco status: former smoker Alcohol intake: never Household members: spouse Marital status: Current occupational status: retired Vitals/I&O/Wt Last Vital Signs Temp 97.9 F 01/14/20 07:48 Pulse 55 L 01/14/20 15:17 Resp 22 H 01/14/20 15:08 BP 144/48 01/14/20 12:37 Pulse Ox 88 L 01/14/20 15:08 01/14/20 01/14/20 01/14/20 06:59 14:59 22:59 Intake Total 320 / 1212 675 / 675 Output Total 250 / 250 Balance 320 / 812 425 / 425 Weight last 48 hrs Weight 207 lb Weight 206 lb Physical Exam Const: COMMON NORMALS: patient oriented x3 and alert ORIENTATION/CONSCIOUSNESS: Yes oriented to person, Yes oriented to place and Yes oriented to time HENMT: COMMON NORMALS: normocephalic HEAD & SCALP: normocephalic Neck/C-Spine: COMMON NORMALS: full ROM, supple, no JVD and No carotid bruits GENERAL: Yes trachea midline CERVICAL SPINE: Yes cervical ROM normal Chest: COMMONS NORMALS: normal inspection of the chest and normal palpation of entire chest wall (Well-healed sternotomy incision) Resp: COMMON NORMALS: normal respiratory effort and No use of accessory muscles; negative for clear to auscultation bilaterally EFFORT & INSPECTION: Yes able to speak in complete sentences, Yes symmetric chest movement, Yes Actively coughing, No tracheal deviation and Yes prolonged expiratory phase AUSCULTATION: not clear to auscultation bilaterally and egophony right lower Cardio: COMMON NORMALS: no JVD, regular rhythm, S1 normal heart sound present, S2 normal heart sound present, No gallops present (Cardio), No murmurs present (Cardio) and No rub (Cardio) JUGULAR VENOUS DISTENTION: no JVD RATE: bradycardic RHYTHM: regular rhythm HEART SOUNDS: S1 normal heart sound present and S2 normal heart sound present BRUITS: no carotid bruits PERIPHERAL PULSES: radial pulses present positive bilateral 2+ Neuro: COMMON NORMALS: patient oriented x3, no focal motor deficits and no sensory deficits noted SENSORIUM/ORIENTATION: Yes alert, Yes oriented to person, Yes oriented to place and Yes oriented to time GAIT: Yes Normal gait present A&P Assessment and plan (1) Hemoptysis: 74-year-old gentleman currently being treated for community-acquired pneumonia. He is now developed intermittent hemoptysis for the past 3 days. This has slowly worsened. There is also been a slow drop in his hemoglobin. I have conferred with my colleague Dr. Caba. We will plan to proceed with bronchoscopy tomorrow morning at 7 AM. Rationale for this was carefully discussed with Matias. Details and risk of the procedure carefully reviewed. The possibility require prolonged ventilation post procedure was discussed given his oxygen requirements. He stated understanding. Appropriate consent have been provided for review and signature. Status: Acute Consult Attestations Medical Necessity Statement: Rest hemoptysis under current treatment for pneumonia. Time Spent in Patient Care: 16 - 35 minutes Coding Level of Care Code Acute [facility] Archivist for [facility] Fwd Diagnoses Hemoptysis R04.2
[2020-01-14 16:53] LABS: Glucose Point of Care 132 mg/dL (70-110)
--- NOTE | 2020-01-14 19:39 | P.PN_ITS ---
Subjective Subjective: Interval history: Remained stable heart rate chapin however continues to be bradycardic with heart rate around 50s and A-V dissociation. He is complaining of some chest pressure. Medications: Reviewed: Yes Medication Review Details: Active Medications Generic Name Dose Route Start Last Admin Trade Name Freq PRN Reason Stop Dose Admin Albuterol/Ipratrop ium 3 ml 01/07/20 21:28 Duoneb INHALATION Q6H PRN SHORTNESS OF YASMINE TH Albuterol/Ipratrop ium 3 ml 01/07/20 21:28 01/14/20 09:11 Duoneb INHALATION 3 ml Q6H.RESPIRATORY S CH Administration Atorvastatin Calci um 40 mg 01/08/20 09:00 01/14/20 09:08 Lipitor PO 40 mg DAILY HANNAH Administration Azithromycin 500 mg 01/13/20 09:00 01/14/20 09:09 Zithromax PO 500 mg DAILY HANNAH Administration Protocol Budesonide 0.25 mg 01/10/20 20:00 01/14/20 09:11 Pulmicort INHALATION 0.25 mg BID.RESPIRATORY S CH Administration Dextrose 25 ml 01/08/20 10:05 D50w IVP ONCE PRN hypoglycemia prot ocol Protocol Dextrose 50 ml 01/08/20 10:05 D50w IVP PRN PRN hypoglycemia prot ocol Protocol Fluticasone Propio jay 1 spray 01/08/20 09:00 01/14/20 09:09 Flonase INTRANASAL Not Given DAILY HANNAH Glucagon 1 mg 01/08/20 10:05 Glucagen IM ONCE PRN Adult Acute Hypog lycemia Prot. Protocol Heparin Sodium (Be ef Lung) 5,000 unit 01/07/20 21:28 01/10/20 13:02 Heparin SUBCUT 5,000 unit Q8H HANNAH Administration Piperacillin Sod/T azobactam 50 mls @ 12.5 mls /hr 01/07/20 23:00 01/14/20 07:28 Sod 3.375 gm/ So dium Chloride IV 12.5 mls/hr Q8H HANNAH Administration Protocol Dextrose 500 mls @ 100 mls /hr 01/08/20 10:05 D5w IV ONCE PRN Adult Acute Hypog lycemia Prot Protocol Levofloxacin/Dextr ose 750 mg in 150 mls @ 100 mls/hr 01/09/20 22:30 01/14/20 00:09 Levaquin-D5w IV Infused Q48H HANNAH Infusion Protocol Insulin Aspart 0 unit 01/08/20 12:00 01/14/20 07:28 Novolog SUBCUT 2 unit WM&BEDTIME HANNAH Administration Protocol Methylprednisolone Sodium Succinate 40 mg 01/12/20 15:15 01/14/20 09:09 Solu-Medrol IVP 40 mg Q6H HANNAH Administration Montelukast Sodium 10 mg 01/08/20 09:00 01/14/20 09:08 Singulair PO 10 mg DAILY HANNAH Administration Pantoprazole Sodiu m 40 mg 01/08/20 10:15 01/14/20 09:08 Protonix PO 40 mg DAILY HANNAH Administration Prednisone 40 mg 01/07/20 21:28 01/12/20 08:59 Prednisone PO 40 mg DAILY HANNAH Administration No Known Allergies Allergy (Verified 01/07/20 17:46) Vitals/I&O/Wt Last Vital Signs Temp 97.6 F 01/14/20 19:16 Pulse 58 L 01/14/20 19:16 Resp 18 01/14/20 19:16 BP 140/34 01/14/20 19:16 Pulse Ox 92 01/14/20 19:16 01/14/20 01/14/20 01/14/20 06:59 14:59 22:59 Intake Total 320 / 1212 675 / 675 360 / 1035 Output Total 250 / 250 Balance 320 / 812 425 / 425 360 / 785 Weight last 48 hrs Weight 207 lb Weight 206 lb Physical Exam Narrative: EXAM NARRATIVE: GENERAL: Patient is well oriented alert NECK: No jugular vein distension. HEENT: No cyanosis. No icterus. pallor. HEART: Regular S1 and S2. No murmur, rub or gallop. LUNGS: Decreased breath mild inspiratory crackles bilaterally. ABDOMEN: Soft, nontender and nondistended. Positive bowel sounds. No guarding, rebound or tenderness. CENTRAL NERVOUS SYSTEM: Nonfocal eXTREMITIES: Lower extremities without edema bilaterally. Data : 01/14/20 13:20 01/14/20 02:55 A&P Assessment and plan (1) Hemoptysis: As per pulmonary and CT surgery. Status: Acute (2) HTN (hypertension): Well-controlled continue meds Status: Chronic Qualifiers: Hypertension type: essential hypertension Qualified Code(s): I10 - Essential (primary) hypertension (3) AV heart block: Once infection free may will need pacemaker Status: Acute (4) Congestive heart failure: Well compensated continue medicine Status: Acute Qualifiers: Heart failure chronicity: chronic Heart failure type: diastolic Qualified Code(s): I50.32 - Chronic diastolic (congestive) heart failure (5) CAD (coronary artery disease): Patient is complaining of chest pressure I will add isosorbide mononitrate to the regimen. Continue rest of the medicine. Continue to treat medically Status: Chronic Qualifiers: Coronary Disease-Associated Artery/Lesion type: [place] artery [place] vs. transplanted heart: [place] heart Associated angina: without angina Qualified Code(s): I25.10 - Atherosclerotic heart disease of [place] coronary artery without angina pectoris Additional A&P Information Hemoptysis : Patient continues to have hemoptysis macrocytic anemia History of DARIUS on CPAP Attestations Medical Necessity Statement*: Patient require continuation hospitalization for above defined care. Coding Level of Care Code Established Pt Acute Track Inspecting Supervisor for Angelika Mckenzie Patient Type Established History Expanded Problem Focused Exam Expanded Problem Focused Medical Decision Making Moderate Complexity Diagnoses Hemoptysis R04.2 HTN (hypertension) I10 Hypertension type: essential hypertension AV heart block I44.30 Congestive heart failure I50.32 Heart failure chronicity: chronic Heart failure type: diastolic CAD (coronary artery disease) I25.10 Coronary Disease-Associated Artery/Lesion type: [place] artery [place] vs. transplanted heart: [place] heart Associated angina: without angina
[2020-01-14 20:09] LABS: Glucose Point of Care 236 mg/dL (70-110)
[2020-01-14] MEDS: sodium chloride 0.9% (100 ml) 100 ML 50 ML (20:17)
--- NOTE | 2020-01-14 20:30 | PC.NURSE ---
Received report from RAMÍREZ Croft. Pt sitting in bed watching tv with no complaints or needs at this time. See nursing assessment.
--- NOTE | 2020-01-14 21:53 | PC.NURSE ---
RR of 53 entered in error. RR 23 pre transfusion.
[2020-01-15] VITALS (36 sets, daily range): BP systolic 107–164; BP diastolic 28–87; PULSE 42–56; RESP 16–28; TEMP 35.7–36.9; O2SAT 86–96
[2020-01-15] MEDS: isosorbide mononitrate ER 30 mg Tablet 15 MG PO ×2 (00:15→13:25)
[2020-01-15] MEDS: ipratropium-albuterol 3 mL Neb INHALATION ×3 (04:01→20:00)
--- NOTE | 2020-01-15 05:44 | PM.PN ---
Subjective Subjective: Interval history: Nurses report uneventful night. Patient sleeping on my rounds this morning. Vitals/I&O/Wt Last Vital Signs Temp 97.9 F 01/15/20 04:45 Pulse 47 L 01/15/20 04:45 Resp 19 H 01/15/20 04:45 BP 136/87 01/15/20 04:45 Pulse Ox 91 01/15/20 04:45 01/14/20 01/14/20 01/15/20 14:59 22:59 06:59 Intake Total 675 / 675 470 / 1145 700 / 1845 Output Total 250 / 250 0 / 250 Balance 425 / 425 470 / 895 700 / 1595 Weight last 48 hrs Weight 207 lb Data : 01/14/20 13:20 01/14/20 02:55 A&P Assessment and plan (1) Hemoptysis: Intermittent hemoptysis over the past several days under current treatment for pneumonia. Plan: Will plan for bronchoscopy this morning. Status: Acute Attestations Medical Necessity Statement*: Hemoptysis Time Spent in Patient Care: less than 15 minutes Coding Level of Care Code Acute Inspector Insulation for Angelika Mckenzie Diagnoses Hemoptysis R04.2
[2020-01-15 06:04] LABS: Glucose Point of Care 137 mg/dL (70-110)
--- NOTE | 2020-01-15 06:30 | PC.NURSE ---
Pt transported to surgery for bronch by surgery staff
[2020-01-15] MEDS: cetacaine Spray 5 gm Can 1 SPRAY TOPICAL (06:40)
--- NOTE | 2020-01-15 06:40 | ANES.PREANE2 ---
Pre-Anesthetic Assessment Pre-Anesthetic Assessment: Height/Weight: Height 1.78 m Weight 98.747 kg Temp Pulse Resp BP Pulse Ox 97.1 F L 48 L 20 H 139/44 94 01/15/20 06:28 01/15/20 06:28 01/15/20 06:28 01/15/20 06:28 01/15/20 06:28 Proposed Procedure: Operation Date: 01/15/20 07:00 Proposed Procedures p Bronchoscopy(Not Applicable) - Darinel Mcdaniels MD Social: Social History: Tobacco (quit) and No alcohol Exam: Pre-Anes Outpt Exam: alert, oriented x 3 and regular rate & rhythm Additional Exam Findings (including area of procedure): bilat wheezes Airway: Submandibular: WNL Cervical ROM: WNL MP: 2 Dentition: False (upper and lower) History/ROS: No significant history except as noted Pulmonary: Pulmonary: COPD, LOVING and SOB CV/HEM: CV/HEM: CAD, HTN and NE : : None reported Hepatic: Hepatic: None reported GI: GI: GERD (not well controlled) Metabolic: Metabolic: DM and Hyperlipidemia Musc/skel: Musc/skel: None reported Neuropsych: Neuropsych: None reported Anesthetic Plan: ASA status: 4 Anesthesia: General Risk of > 500 ml blood loss (7ml/kg in children): No Meds/Allergies Current Medications: Current Medications Generic Name Dose Route Start Last Admin Trade Name Freq PRN Reason Stop Dose Admin Albuterol/Ipratrop ium 3 ml 01/07/20 21:28 01/15/20 04:01 Duoneb INHALATION 3 ml Q6H.RESPIRATORY S CH Administration Atorvastatin Calci um 40 mg 01/08/20 09:00 01/14/20 09:08 Lipitor PO 40 mg DAILY HANNAH Administration Azithromycin 500 mg 01/13/20 09:00 01/14/20 09:09 Zithromax PO 500 mg DAILY HANNAH Administration Protocol Budesonide 0.25 mg 01/10/20 20:00 01/14/20 21:14 Pulmicort INHALATION 0.25 mg BID.RESPIRATORY S CH Administration Fluticasone Propio jay 1 spray 01/08/20 09:00 01/14/20 09:09 Flonase INTRANASAL Not Given DAILY HANNAH Heparin Sodium (Be ef Lung) 5,000 unit 01/07/20 21:28 01/10/20 13:02 Heparin SUBCUT 5,000 unit Q8H HANNAH Administration Piperacillin Sod/T azobactam 50 mls @ 12.5 mls /hr 01/07/20 23:00 01/14/20 23:38 Sod 3.375 gm/ So dium Chloride IV 12.5 mls/hr Q8H HANNAH Administration Protocol Levofloxacin/Dextr ose 750 mg in 150 mls @ 100 mls/hr 01/09/20 22:30 01/14/20 00:09 Levaquin-D5w IV Infused Q48H HANNAH Infusion Protocol Insulin Aspart 0 unit 01/08/20 12:00 01/14/20 20:57 Novolog SUBCUT 6 unit WM&BEDTIME HANNAH Administration Protocol Isosorbide Mononit rate 15 mg 01/14/20 13:15 01/15/20 00:15 Imdur PO 15 mg Q12H HANNAH Administration Methylprednisolone Sodium Succinate 40 mg 01/12/20 15:15 01/15/20 03:34 Solu-Medrol IVP 40 mg Q6H HANNAH Administration Montelukast Sodium 10 mg 01/08/20 09:00 01/14/20 09:08 Singulair PO 10 mg DAILY HANNAH Administration Pantoprazole Sodiu m 40 mg 01/08/20 10:15 01/14/20 09:08 Protonix PO 40 mg DAILY HANNAH Administration Prednisone 40 mg 01/07/20 21:28 01/12/20 08:59 Prednisone PO 40 mg DAILY HANNAH Administration Additional Medication Information: Active Medications Generic Name Dose Route Start Last Admin Trade Name Freq PRN Reason Stop Dose Admin Albuterol/Ipratrop ium 3 ml 01/07/20 21:28 Duoneb INHALATION Q6H PRN SHORTNESS OF YASMINE TH Albuterol/Ipratrop ium 3 ml 01/07/20 21:28 01/14/20 09:11 Duoneb INHALATION 3 ml Q6H.RESPIRATORY S CH Administration Atorvastatin Calci um 40 mg 01/08/20 09:00 01/14/20 09:08 Lipitor PO 40 mg DAILY HANNAH Administration Azithromycin 500 mg 01/13/20 09:00 01/14/20 09:09 Zithromax PO 500 mg DAILY HANNAH Administration Protocol Budesonide 0.25 mg 01/10/20 20:00 01/14/20 09:11 Pulmicort INHALATION 0.25 mg BID.RESPIRATORY S CH Administration Dextrose 25 ml 01/08/20 10:05 D50w IVP ONCE PRN hypoglycemia prot ocol Protocol Dextrose 50 ml 01/08/20 10:05 D50w IVP PRN PRN hypoglycemia prot ocol Protocol Fluticasone Propio jay 1 spray 01/08/20 09:00 01/14/20 09:09 Flonase INTRANASAL Not Given DAILY HANNAH Glucagon 1 mg 01/08/20 10:05 Glucagen IM ONCE PRN Adult Acute Hypog lycemia Prot. Protocol Heparin Sodium (Be ef Lung) 5,000 unit 01/07/20 21:28 01/10/20 13:02 Heparin SUBCUT 5,000 unit Q8H HANNAH Administration Piperacillin Sod/T azobactam 50 mls @ 12.5 mls /hr 01/07/20 23:00 01/14/20 07:28 Sod 3.375 gm/ So dium Chloride IV 12.5 mls/hr Q8H HANNAH Administration Protocol Dextrose 500 mls @ 100 mls /hr 01/08/20 10:05 D5w IV ONCE PRN Adult Acute Hypog lycemia Prot Protocol Levofloxacin/Dextr ose 750 mg in 150 mls @ 100 mls/hr 01/09/20 22:30 01/14/20 00:09 Levaquin-D5w IV Infused Q48H HANNAH Infusion Protocol Insulin Aspart 0 unit 01/08/20 12:00 01/14/20 07:28 Novolog SUBCUT 2 unit WM&BEDTIME HANNAH Administration Protocol Methylprednisolone Sodium Succinate 40 mg 01/12/20 15:15 01/14/20 09:09 Solu-Medrol IVP 40 mg Q6H HANNAH Administration Montelukast Sodium 10 mg 01/08/20 09:00 01/14/20 09:08 Singulair PO 10 mg DAILY HANNAH Administration Pantoprazole Sodiu m 40 mg 01/08/20 10:15 01/14/20 09:08 Protonix PO 40 mg DAILY HANNAH Administration Prednisone 40 mg 01/07/20 21:28 01/12/20 08:59 Prednisone PO 40 mg DAILY HANNAH Administration No Known Allergies Allergy (Verified 01/07/20 17:46) PFSH Anesthesia PFSH: Medical History CAD (coronary artery disease) Chronic anemia -baseline Hg around 10 CKD (chronic kidney disease) stage 2, GFR 60-89 ml/min -baseline Cr wnl COPD (chronic obstructive pulmonary disease) Fracture, femoral HTN (hypertension) Non-insulin dependent diabetes mellitus Obesity DARIUS (obstructive sleep apnea) Surgical History Hx of CABG Hx of cholecystectomy Family History Mother CAD (coronary artery disease) Social History Smoking and tobacco status: former smoker Alcohol intake: never Household members: spouse Marital status: Current occupational status: retired Data Anesthesia CBC & Chem 7: 01/14/20 13:20 01/14/20 02:55 Other Labs: Laboratory Results - last 48 hr 01/13/20 01/13/20 01/13/20 12:05 16:45 20:36 WBC RBC Hgb Hct MCV MCH MCHC RDW Plt Count MPV Neut % (Auto) Lymph % (Auto) [place] % (Auto) Eos % (Auto) Baso % (Auto) Neut # (Auto) Lymph # (Auto) [place] # (Auto) Eos # (Auto) Baso # (Auto) Nucleated RBC % (auto) Nucleated RBCs # Sodium Potassium Chloride Carbon Dioxide Anion Gap BUN Creatinine Glucose POC Glucose 179 156 193 Calculated Osmolality Calcium Blood Type Rho(D) Type Antibody Screen Crossmatch 01/14/20 01/14/20 01/14/20 02:55 02:55 06:15 WBC 16.8 H RBC 2.39 L Hgb 7.3 L Hct 23.6 L MCV 98.7 H MCH 30.5 MCHC 30.9 RDW 15.3 H Plt Count 204 MPV 10.9 H Neut % (Auto) 90.6 Lymph % (Auto) 6.1 [place] % (Auto) 2.4 Eos % (Auto) 0.0 Baso % (Auto) 0.1 Neut # (Auto) 15.2 H Lymph # (Auto) 1.0 [place] # (Auto) 0.4 Eos # (Auto) 0.0 Baso # (Auto) 0.0 Nucleated RBC % (auto) 0.1 Nucleated RBCs # 0.0 Sodium 144 Potassium 4.2 Chloride 108 H Carbon Dioxide 25 Anion Gap 15.2 BUN 43 H Creatinine 1.4 H Glucose 143 H POC Glucose 145 Calculated Osmolality 298 H Calcium 8.6 Blood Type Rho(D) Type Antibody Screen Crossmatch 01/14/20 01/14/20 01/14/20 11:09 13:20 13:20 WBC RBC Hgb 7.5 L Hct 24.1 L MCV MCH MCHC RDW Plt Count MPV Neut % (Auto) Lymph % (Auto) [place] % (Auto) Eos % (Auto) Baso % (Auto) Neut # (Auto) Lymph # (Auto) [place] # (Auto) Eos # (Auto) Baso # (Auto) Nucleated RBC % (auto) Nucleated RBCs # Sodium Potassium Chloride Carbon Dioxide Anion Gap BUN Creatinine Glucose POC Glucose 238 Calculated Osmolality Calcium Blood Type O Positive Rho(D) Type Positive Antibody Screen Negative Crossmatch See Detail 01/14/20 01/14/20 01/15/20 16:47 19:58 05:58 WBC RBC Hgb Hct MCV MCH MCHC RDW Plt Count MPV Neut % (Auto) Lymph % (Auto) [place] % (Auto) Eos % (Auto) Baso % (Auto) Neut # (Auto) Lymph # (Auto) [place] # (Auto) Eos # (Auto) Baso # (Auto) Nucleated RBC % (auto) Nucleated RBCs # Sodium Potassium Chloride Carbon Dioxide Anion Gap BUN Creatinine Glucose POC Glucose 132 236 137 Calculated Osmolality Calcium Blood Type Rho(D) Type Antibody Screen Crossmatch Cardiac Studies: No Data to Display
[2020-01-15] MEDS: sodium chloride 0.9% 1,000 ML 30 ML IV ×2 (07:00→08:54)
[2020-01-15] MEDS: sodium bicarbonate 1 mEq/mL SDV 50mL 50 MEQ XX (07:32)
--- NOTE | 2020-01-15 07:57 | PM.OP ---
Operative Report Date of procedure: January 15, 2020 Pre-op Diagnosis: Pneumonia with hemoptysis Post-op diagnosis: same Procedure Done: Flexible diagnostic bronchoscopy and bronchial lavage Pathology: none sent Surgeon: Darinel Mcdaniels Anesthesia: General Complications: None Condition: stable Disposition: ICU Brief History: Very pleasant 74-year-old gentleman admitted with recalcitrant pneumonia which failed outpatient medical management. Currently on vancomycin and Zosyn. He developed hemoptysis approximately 3 days ago with a moderate amounts of production. Bronchoscopy requested by Dr. Caba to assist with management. Details risk procedure carefully and frankly discussed. Proper consents have been reviewed and signed. Procedure: Mr. Salcedo was taken operating room theater and underwent general endotracheal anesthesia. O2 saturation has been averaging in the upper 80s. This maintained about 87 to 90% after intubation despite 100% FiO2. A subsequent formed flexible diagnostic bronchoscopy. There was substantial blood in the endotracheal tube and pulling of blood above the level of the main angelo. Active suction was performed throughout the tracheobronchial tree to remove this maricarmen dark blood. No bright red blood was identified on either side. After methodically removing all gross blood, bronchial lavage with saline was performed on both sides to allow for appropriate section of anatomy. Mucosa was mildly edematous and only modestly friable. Branching anatomy was normal. There were no maricarmen endobronchial lesions or evidence for extrinsic compression. Methodical inspection of all the main and secondary branch of the bronchial tree continue to the tertiary level was performed on both sides. Dark blood was noted to be emerging from mostly the right lower lobe, sparing the middle lobe orifice. There was also some mild bleeding noted coming from the apex of the right upper lobe. There was some mild bleeding noted from the left lower lobe. The left upper lobe appeared to be spared. Due to pooling in the large volume of blood, it was unclear as to whether there were other major areas of production though it appeared to be mostly from the right lower lobe. O2 saturation did improve after removal of the substantial amount of blood volume. Was completed, the scope was withdrawn. He tolerated procedure well. He is currently being emerged from anesthesia by our anesthesia colleagues. Decision will be made as to whether he remains intubated or is extubated. I have recommended he be placed in the ICU for post procedure observation due to his tenuous pulmonary status. I will confer with Dr. Caba later today.
--- NOTE | 2020-01-15 08:59 | SUR.PHASEI ---
0538 pt to pacu awake alert denies pain
--- NOTE | 2020-01-15 09:08 | PM.PN ---
Subjective Subjective: Interval history: Bronchoscopy this AM, findings discussed with Dr. Mcdaniels. Patient seen upon his return from the procedure, moved to ICU for closer monitoring of his respiratory status given some difficulty with oxygenation during extubation process. Placed on high flow oxygen with an FiO2 of 65 to 70%, 30 L. Repeat H&H shows improvement with hemoglobin of 9.6 so we will hold off on further transfusion. This morning was quite groggy but throughout the day has progressively become more alert and oriented. Persistent bradycardia. Hemodynamically stable. Medications: Reviewed: Yes Medication Review Details: Active Medications Generic Name Dose Route Start Last Admin Trade Name Freq PRN Reason Stop Dose Admin Albuterol Sulfate 2.5 mg 01/15/20 06:25 Albuterol INHALATION ONCE PRN WHEEZING Albuterol/Ipratrop ium 3 ml 01/07/20 21:28 Duoneb INHALATION Q6H PRN SHORTNESS OF YASMINE TH Albuterol/Ipratrop ium 3 ml 01/07/20 21:28 01/15/20 04:01 Duoneb INHALATION 3 ml Q6H.RESPIRATORY S CH Administration Atorvastatin Calci um 40 mg 01/08/20 09:00 01/14/20 09:08 Lipitor PO 40 mg DAILY HANNAH Administration Azithromycin 500 mg 01/13/20 09:00 01/14/20 09:09 Zithromax PO 500 mg DAILY HANNAH Administration Protocol Budesonide 0.25 mg 01/10/20 20:00 01/14/20 21:14 Pulmicort INHALATION 0.25 mg BID.RESPIRATORY S CH Administration Dextrose 25 ml 01/08/20 10:05 D50w IVP ONCE PRN hypoglycemia prot ocol Protocol Dextrose 50 ml 01/08/20 10:05 D50w IVP PRN PRN hypoglycemia prot ocol Protocol Famotidine 20 mg 01/15/20 06:25 Pepcid Inj IVP ONCE PRN HEARTBURN Fentanyl 50 mcg 01/15/20 06:25 Sublimaze IVP Q10M PRN Preop Pain Fentanyl 100 mcg 01/15/20 06:25 Sublimaze IVP ONCE PRN Per anesthesia fo r block Fluticasone Propio jay 1 spray 01/08/20 09:00 01/14/20 09:09 Flonase INTRANASAL Not Given DAILY HANNAH Glucagon 1 mg 01/08/20 10:05 Glucagen IM ONCE PRN Adult Acute Hypog lycemia Prot. Protocol Heparin Sodium (Be ef Lung) 5,000 unit 01/07/20 21:28 01/10/20 13:02 Heparin SUBCUT 5,000 unit Q8H HANNAH Administration Piperacillin Sod/T azobactam 50 mls @ 12.5 mls /hr 01/07/20 23:00 01/14/20 23:38 Sod 3.375 gm/ So dium Chloride IV 12.5 mls/hr Q8H HANNAH Administration Protocol Dextrose 500 mls @ 100 mls /hr 01/08/20 10:05 D5w IV ONCE PRN Adult Acute Hypog lycemia Prot Protocol Levofloxacin/Dextr ose 750 mg in 150 mls @ 100 mls/hr 01/09/20 22:30 01/14/20 00:09 Levaquin-D5w IV Infused Q48H HANNAH Infusion Protocol Sodium Chloride 1,000 mls @ 30 ml s/hr 01/15/20 06:30 01/15/20 08:54 Sodium Chloride 0.9% IV 01/16/20 06:29 30 mls/hr .Q24H HANNAH Administration Insulin Aspart 0 unit 01/08/20 12:00 01/14/20 20:57 Novolog SUBCUT 6 unit WM&BEDTIME HANNAH Administration Protocol Ipratropium Bromid e 0.5 mg 01/15/20 06:25 Atrovent Neb INHALATION ONCE PRN WHEEZING Isosorbide Mononit rate 15 mg 01/14/20 13:15 01/15/20 00:15 Imdur PO 15 mg Q12H HANNAH Administration Lidocaine HCl 0.1 ml 01/15/20 06:25 Lidocaine 1% INTRADERMA 01/16/20 06:24 PRN PRN anesthetic prior to IV start Lidocaine HCl 1 ml 01/15/20 06:25 Lidocaine 2% Vis cous TOPICAL PRN PRN Anesthetic prior to IV start Methylprednisolone Sodium Succinate 40 mg 01/12/20 15:15 01/15/20 03:34 Solu-Medrol IVP 40 mg Q6H HANNAH Administration Metoclopramide HCl 10 mg 01/15/20 06:25 Reglan IVP ONCE PRN N/V if zofran ine ffective Midazolam HCl 2 mg 01/15/20 06:25 Versed IVP Q5M PRN Preop Anxiety Midazolam HCl 5 mg 01/15/20 06:25 Versed IVP ONCE PRN Per anesthesia fo r block Montelukast Sodium 10 mg 01/08/20 09:00 01/14/20 09:08 Singulair PO 10 mg DAILY HANNAH Administration Ondansetron HCl 4 mg 01/15/20 06:25 Zofran IVP Q5M PRN NAUSEA AND VOMITI NG Pantoprazole Sodiu m 40 mg 01/08/20 10:15 01/14/20 09:08 Protonix PO 40 mg DAILY HANNAH Administration Prednisone 40 mg 01/07/20 21:28 01/12/20 08:59 Prednisone PO 40 mg DAILY HANNAH Administration Scopolamine 1 patch 01/15/20 06:25 Transderm-Scop TRANSDERMA ONCE PRN Nausea/ Vomiting Prophylaxis No Known Allergies Allergy (Verified 01/07/20 17:46) Vitals/I&O/Wt Last Vital Signs Temp 98.2 F 01/15/20 08:16 Pulse 47 L 01/15/20 08:58 Resp 23 H 01/15/20 08:58 BP 144/45 01/15/20 08:58 Pulse Ox 88 L 01/15/20 08:58 01/14/20 01/15/20 01/15/20 22:59 06:59 14:59 Intake Total 470 / 1145 700 / 1845 1000 / 1000 Output Total 0 / 250 0 / 0 Balance 470 / 895 700 / 1595 1000 / 1000 Weight last 48 hrs Weight 98.747 kg Weight 93.894 kg Physical Exam Const: COMMON NORMALS: no acute distress, patient oriented x3 and alert GENERAL APPEARANCE: cooperative and comfortable NUTRITIONAL APPEARANCE: obese morbidly obese ORIENTATION/CONSCIOUSNESS: Yes awake OTHER: -looks appropriate for age; fatigued HENMT: COMMON NORMALS: normocephalic, atraumatic, hearing grossly normal bilaterally and moist oral mucous membranes HEAD & SCALP: normocephalic and atraumatic Eye: COMMON NORMALS: Equal, round and reactive pupils present, EOMs intact bilaterally and conjunctivae normal CONJUNCTIVA: Yes conjunctivae normal PUPIL: Yes Equal, round and reactive pupils present Neck/C-Spine: COMMON NORMALS: full ROM GENERAL: Yes normal visual inspection and Yes trachea midline Chest: CHEST: Yes Symmetrical chest wall rise Resp: COMMON NORMALS: normal respiratory effort, No retractions and No use of accessory muscles EFFORT & INSPECTION: Yes able to speak in complete sentences, Yes symmetric chest movement and No tachypneic AUSCULTATION: rhonchi right upper and right lower, wheezes expiratory wheezes and diminished lung sounds bilateral in the lower lung patel OTHER: -on high-flow oxygen (30L, FiO2-65-70%); coarse breath sounds particularly on the R Cardio: COMMON NORMALS: regular rhythm, S1 normal heart sound present, S2 normal heart sound present and No murmurs present (Cardio) RATE: bradycardic RHYTHM: regular rhythm HEART SOUNDS: S1 normal heart sound present and S2 normal heart sound present GI: COMMON NORMALS: Normal to inspection, nondistended, normoactive bowel sounds present, Soft to palpation and non-tender INSPECTION: Yes central obesity PALPATION: Yes Soft to palpation Back/Pelvis: COMMON NORMALS: thoracic and lumbar spine normal to inspection Extremity: COMMON NORMALS: normal to inspection, full ROM, no clubbing, cyanosis or edema and no pedal edema Neuro: COMMON NORMALS: patient oriented x3, moves all extremities, no focal motor deficits and no sensory deficits noted SENSORIUM/ORIENTATION: Yes alert Psych: COMMON NORMALS: mental status grossly normal, Normal thought process present, cooperative, normal affect and speech normal SPEECH: Yes normal speech THOUGHT PROCESS: Normal thought process present Skin: COMMON NORMALS: no rashes or lesions noted, no jaundice, no petechiae and no mottling GENERAL SKIN EXAM: no rashes or lesions noted Data : 01/15/20 11:05 01/14/20 02:55 A&P Assessment and plan (1) Pneumonia: -recently diagnosed with community-acquired pneumonia, had been on treatment with levaquin -recently tested for COVID-19, negative -on Zosyn, Levaquin, Azithromycin (for atypical coverage); off Vanc as MRSA negative -blood cx: negative -imaging reviewed -afebrile, increased leukocytosis; continue to trend WBC and monitor vital signs -sputum cx sent from PCP including mycobacterial smear; prelim negative for AFB. Sputum cx positive for Pseudomonas aeruginosa, sensitivity noted. Repeat sputum cx-mixed christiano, gram stain positive for GPC -bacterial antigens and Legionella negative -close monitoring of respiratory status -home oxygen evaluation prior to d/c if still oxygen dependent -repeat imaging including CT chest shows progression of pneumonia CXR Status: Acute Qualifiers: Laterality: bilateral Lung location: lower lobe of lung Pneumonia type: due to unspecified organism Qualified Code(s): J18.9 - Pneumonia, unspecified organism (2) Hemoptysis: -hemoptysis noted with continued drop in Hg (9.1--->7.3) -continue to monitor H/H closely and continue to hold AC; INR-1.04; has been off heparin x > 72 hrs -Consult by Dr. Mcdaniels appreciated; bronchoscopy today with noted social blood in the endotracheal tube and pooling of blood above the level of the angelo, appears to be old blood, no bright red blood identified, mildly edematous and modestly friable mucosa; no evidence of maricarmen endobronchial lesions or extrinsic compression NPO after midnight -transfused 2 units PRBCs yesterday; may need additional blood products if continued drop, symptomatic Status: Acute (3) AV heart block: -noted high grade AV block and bradycardia -BB on hold, had been on Coreg 6.25 mg BID prior to hospitalization -telemetry monitoring -HRs in the 40-50 range, BP stable; continue to monitor vital signs -Echo: EF=55%, G1DD, mild LVH, trace AR, mild-moderate MR, trace to mild TR; previous done in 03/2019 showed EF=49%, G1DD -Cardiology consult by Dr. Yadav and Dr. Florez appreciated -if persistent and symptomatic, may need pacemaker; anticipate discharge with event monitoring to allow for completion of antibiotic treatment course and resolution of pneumonia Status: Acute (4) Bradycardia: -noted above Status: Acute (5) HAZEL (acute kidney injury): -HAZEL on CKD stage 2 -baseline Cr wnl -slight worsening in renal function likely due to diuresis, continue to monitor -avoid nephrotoxins, renally dose meds Status: Acute (6) COPD exacerbation: -acute COPD exacerbation; likely triggered by pneumonia -not oxygen dependent at baseline; may need home oxygen evaluation prior to d/c -continue to monitor respiratory status -on steroids (switched to IV), Neb treatments and antibiotics -supplemental oxygen as needed Status: Acute (7) CAD (coronary artery disease): -follows up with Dr. Florez -s/p CABG Status: Chronic Qualifiers: Associated angina: without angina Coronary Disease-Associated Artery/Lesion type: [place] artery [place] vs. transplanted heart: [place] heart Qualified Code(s): I25.10 - Atherosclerotic heart disease of [place] coronary artery without angina pectoris (8) DARIUS (obstructive sleep apnea): -CPAP qhs Status: Chronic (9) CKD (chronic kidney disease) stage 2, GFR 60-89 ml/min: -as noted above Status: Chronic (10) Chronic anemia: -continue to monitor H/H particularly with hemoptysis Status: Acute (11) HTN (hypertension): -normotensive -continue to monitor vitals -Coreg on hold due to bradycardia; ACEi on hold due to renal impairment Status: Chronic Qualifiers: Hypertension type: essential hypertension Qualified Code(s): I10 - Essential (primary) hypertension (12) Non-insulin dependent diabetes mellitus: -A1c-5.9 -accuchecks, ISS, hypoglycemia precautions -hold metformin -anticipate hyperglycemia with steroid use and acute illness -consistent carb diet as tolerated Status: Chronic (13) Obesity: -BMI-31 kg/m2 Status: Chronic Qualifiers: Body mass index: BMI 30.0-30.9 Obesity classification: adult class 1 (BMI 30 - 34.9) Obesity type: due to excess calories Serious obesity comorbidity presence: with serious comorbidity Qualified Code(s): E66.09 - Other obesity due to excess calories; Z68.30 - Body mass index (BMI) 30.0-30.9, adult Additional A&P Information -GI ppx with PPI -DVT ppx with SCDs, heparin on hold due to hemoptysis and worsening anemia -Dispo: home -Code status: FULL code -transferred to ICU due to need for close monitoring of respiratory status with increased oxygen requirement Attestations Medical Necessity Statement*: Patient requires hospitalization for continued management of hemoptysis, status post bronchoscopy, continue treatment of pneumonia. Time Spent in Patient Care: 16 - 35 minutes (>than 50% of time spent in counselling and/or direct pt care on unit). Coding Level of Care Code Acute Greenhouse Assistant for g Fwd Exam Comprehensive Diagnoses Pneumonia J18.9 Laterality: bilateral Lung location: lower lobe of lung Pneumonia type: due to unspecified organism Hemoptysis R04.2 AV heart block I44.30 Bradycardia R00.1 HAZEL (acute kidney injury) N17.9 COPD exacerbation J44.1 CAD (coronary artery disease) I25.10 Associated angina: without angina Coronary Disease-Associated Artery/Lesion type: [place] artery [place] vs. transplanted heart: [place] heart DARIUS (obstructive sleep apnea) G47.33 CKD (chronic kidney disease) stage 2, GFR 60-89 ml/min N18.2 Chronic anemia D64.9 HTN (hypertension) I10 Hypertension type: essential hypertension Non-insulin dependent diabetes mellitus Obesity E66.09; Z68.30 Body mass index: BMI 30.0-30.9 Obesity classification: adult class 1 (BMI 30 - 34.9) Obesity type: due to excess calories Serious obesity comorbidity presence: with serious comorbidity
--- NOTE | 2020-01-15 09:25 | SUR.PHASEI ---
0903 pt awake alert resp slightly labored at 28, pt denies pain and nausea and denies feeling short of breath, pt been in complete heart block rythm from admit to pacu, BP remains adequete, VSS. DR CARTER AT BEDSIDE, REPORT CALLED TO FLOOR PRINTS OF PT RYTHM IN PACU WITH PT, PT ALERT ON MONITOR AND O2 FOR TRANSPORT 09 PT TO ROOM ALERT TALKATIVE TO RAMÍREZ LAGOS , HANDOFF AT BEDSIDE PT WITH DEFIB PADS ON FROM OR, MONITOR UNCHANGED SATS 88% ON NC NOW PER ICU NUIRSE PT ON 8L MASK FOR TRANSPORT.
--- NOTE | 2020-01-15 10:16 | PC.NURSE ---
To ICU Patient to ICU at 0915 via bed by RAMÍREZ Hoskins. Patient alert and oriented x4, course lung sounds, on 5lnc. See assessment records for further details.
[2020-01-15 11:19] LABS: Hematocrit 30.1 % (42.0-52.0); Hemoglobin 9.6 g/dL (11.7-16.6)
[2020-01-15 12:33] LABS: Glucose Point of Care 147 mg/dL (70-110)
[2020-01-15] MEDS: piperacillin-tazobactam 3.375 GM in sodium chloride 0.9% (plus) 50 ML IV (16:04)
--- NOTE | 2020-01-15 18:38 | P.PN_ITS ---
Subjective Subjective: Interval history: Status post bronchoscopy result is pending. Continues to be in high degree AV block with A-V dissociation otherwise stable Medications: Reviewed: Yes Medication Review Details: Active Medications Generic Name Dose Route Start Last Admin Trade Name Frelul PRN Reason Stop Dose Admin Albuterol Sulfate 2.5 mg 01/15/20 06:25 Albuterol INHALATION ONCE PRN WHEEZING Albuterol/Ipratrop ium 3 ml 01/07/20 21:28 Duoneb INHALATION Q6H PRN SHORTNESS OF YASMINE TH Albuterol/Ipratrop ium 3 ml 01/07/20 21:28 01/15/20 04:01 Duoneb INHALATION 3 ml Q6H.RESPIRATORY S CH Administration Atorvastatin Calci um 40 mg 01/08/20 09:00 01/14/20 09:08 Lipitor PO 40 mg DAILY HANNAH Administration Azithromycin 500 mg 01/13/20 09:00 01/14/20 09:09 Zithromax PO 500 mg DAILY HANNAH Administration Protocol Budesonide 0.25 mg 01/10/20 20:00 01/14/20 21:14 Pulmicort INHALATION 0.25 mg BID.RESPIRATORY S CH Administration Dextrose 25 ml 01/08/20 10:05 D50w IVP ONCE PRN hypoglycemia prot ocol Protocol Dextrose 50 ml 01/08/20 10:05 D50w IVP PRN PRN hypoglycemia prot ocol Protocol Famotidine 20 mg 01/15/20 06:25 Pepcid Inj IVP ONCE PRN HEARTBURN Fentanyl 50 mcg 01/15/20 06:25 Sublimaze IVP Q10M PRN Preop Pain Fentanyl 100 mcg 01/15/20 06:25 Sublimaze IVP ONCE PRN Per anesthesia fo r block Fluticasone Propio jay 1 spray 01/08/20 09:00 01/14/20 09:09 Flonase INTRANASAL Not Given DAILY HANNAH Glucagon 1 mg 01/08/20 10:05 Glucagen IM ONCE PRN Adult Acute Hypog lycemia Prot. Protocol Heparin Sodium (Be ef Lung) 5,000 unit 01/07/20 21:28 01/10/20 13:02 Heparin SUBCUT 5,000 unit Q8H HANNAH Administration Piperacillin Sod/T azobactam 50 mls @ 12.5 mls /hr 01/07/20 23:00 01/14/20 23:38 Sod 3.375 gm/ So dium Chloride IV 12.5 mls/hr Q8H HANNAH Administration Protocol Dextrose 500 mls @ 100 mls /hr 01/08/20 10:05 D5w IV ONCE PRN Adult Acute Hypog lycemia Prot Protocol Levofloxacin/Dextr ose 750 mg in 150 mls @ 100 mls/hr 01/09/20 22:30 01/14/20 00:09 Levaquin-D5w IV Infused Q48H HANNAH Infusion Protocol Sodium Chloride 1,000 mls @ 30 ml s/hr 01/15/20 06:30 01/15/20 08:54 Sodium Chloride 0.9% IV 01/16/20 06:29 30 mls/hr .Q24H HANNAH Administration Insulin Aspart 0 unit 01/08/20 12:00 01/14/20 20:57 Novolog SUBCUT 6 unit WM&BEDTIME HANNAH Administration Protocol Ipratropium Bromid e 0.5 mg 01/15/20 06:25 Atrovent Neb INHALATION ONCE PRN WHEEZING Isosorbide Mononit rate 15 mg 01/14/20 13:15 01/15/20 00:15 Imdur PO 15 mg Q12H HANNAH Administration Lidocaine HCl 0.1 ml 01/15/20 06:25 Lidocaine 1% INTRADERMA 01/16/20 06:24 PRN PRN anesthetic prior to IV start Lidocaine HCl 1 ml 01/15/20 06:25 Lidocaine 2% Vis cous TOPICAL PRN PRN Anesthetic prior to IV start Methylprednisolone Sodium Succinate 40 mg 01/12/20 15:15 01/15/20 03:34 Solu-Medrol IVP 40 mg Q6H HANNAH Administration Metoclopramide HCl 10 mg 01/15/20 06:25 Reglan IVP ONCE PRN N/V if zofran ine ffective Midazolam HCl 2 mg 01/15/20 06:25 Versed IVP Q5M PRN Preop Anxiety Midazolam HCl 5 mg 01/15/20 06:25 Versed IVP ONCE PRN Per anesthesia fo r block Montelukast Sodium 10 mg 01/08/20 09:00 01/14/20 09:08 Singulair PO 10 mg DAILY HANNAH Administration Ondansetron HCl 4 mg 01/15/20 06:25 Zofran IVP Q5M PRN NAUSEA AND VOMITI NG Pantoprazole Sodiu m 40 mg 01/08/20 10:15 01/14/20 09:08 Protonix PO 40 mg DAILY HANNAH Administration Prednisone 40 mg 01/07/20 21:28 01/12/20 08:59 Prednisone PO 40 mg DAILY HANNAH Administration Scopolamine 1 patch 01/15/20 06:25 Transderm-Scop TRANSDERMA ONCE PRN Nausea/ Vomiting Prophylaxis No Known Allergies Allergy (Verified 01/07/20 17:46) Vitals/I&O/Wt Last Vital Signs Temp 98.5 F 01/15/20 16:00 Pulse 46 L 01/15/20 16:00 Resp 22 H 01/15/20 16:00 BP 144/47 01/15/20 16:00 Pulse Ox 91 01/15/20 16:00 01/15/20 01/15/20 01/15/20 06:59 14:59 22:59 Intake Total 750 / 1895 1000 / 1000 360 / 1360 Output Total 0 / 250 0 / 0 200 / 200 Balance 750 / 1645 1000 / 1000 160 / 1160 Weight last 48 hrs Weight 217 lb 11.2 oz Weight 207 lb Physical Exam Narrative: EXAM NARRATIVE: GENERAL: Patient is well oriented alert NECK: No jugular vein distension. HEENT: No cyanosis. No icterus. pallor. HEART: Regular S1 and S2. No murmur, rub or gallop. LUNGS: Decreased breath no crackles bilaterally. ABDOMEN: Soft, nontender and nondistended. Positive bowel sounds. No guarding, rebound or tenderness. CENTRAL NERVOUS SYSTEM: Nonfocal eXTREMITIES: Lower extremities without edema bilaterally. Data : 01/15/20 11:05 01/14/20 02:55 A&P Assessment and plan (1) Hemoptysis: Status post bronchoscopy for intermittent hemoptysis Status: Acute (2) HTN (hypertension): Well-controlled continue meds Status: Chronic Qualifiers: Hypertension type: essential hypertension Qualified Code(s): I10 - Essential (primary) hypertension (3) CAD (coronary artery disease): Stable. Continue current Status: Chronic Qualifiers: Coronary Disease-Associated Artery/Lesion type: [place] artery [place] vs. transplanted heart: [place] heart Associated angina: without angina Qualified Code(s): I25.10 - Atherosclerotic heart disease of [place] coronary artery without angina pectoris (4) AV heart block: Heart block. Requires permanent pacemaker however due to infection we will defer it until infection Clears. Status: Acute Additional A&P Information Hemoptysis : Patient continues to have hemoptysis macrocytic anemia History of DARIUS on CPAP Attestations Medical Necessity Statement*: Require continuation hospitalization for above defined care. Coding Level of Care Code Established Pt Acute Stereotype Finisher for Chg Fwd Patient Type Established History Expanded Problem Focused Exam Expanded Problem Focused Medical Decision Making Moderate Complexity Diagnoses Hemoptysis R04.2 HTN (hypertension) I10 Hypertension type: essential hypertension CAD (coronary artery disease) I25.10 Coronary Disease-Associated Artery/Lesion type: [place] artery [place] vs. transplanted heart: [place] heart Associated angina: without angina AV heart block I44.30
[2020-01-15] MEDS: budesonide 0.5 mg/2 mL Neb 0.25 MG INHALATION (20:00)
[2020-01-15] MEDS: levofloxacin-dextrose 5 % 750 MG/150 ML PREMIX 100 MG IV (21:20)
[2020-01-15 21:30] LABS: Glucose Point of Care 138 mg/dL (70-110)
[2020-01-15 21:30] LABS: Glucose Point of Care 177 mg/dL (70-110)
--- NOTE | 2020-01-15 23:52 | PC.NURSE ---
patient is on high nimo 02 at this time resp had to increase to 45l at 75% sats are at 88%. 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 I had talked with patient about the test we are running and explained to him we can tell if it is active or latent. he seemed to calm down some. patient is very agitated at anything that goes on in room. tried to talk with him and give some extra attention to make him feel more comfortable. patient is now relaxing in bed eyes closed.
[2020-01-16] VITALS (17 sets, daily range): BP systolic 112–172; BP diastolic 38–70; PULSE 40–50; RESP 14–28; TEMP 36.2–37.2; O2SAT 83–97
[2020-01-16] MEDS: piperacillin-tazobactam 3.375 GM in sodium chloride 0.9% (plus) 50 ML IV ×3 (00:41→17:00)
[2020-01-16] MEDS: ipratropium-albuterol 3 mL Neb INHALATION ×3 (03:39→15:17)
[2020-01-16 04:58] LABS: Basophils % 0.1 %; Hematocrit 28.4 % (42.0-52.0); Hemoglobin 8.8 g/dL (11.7-16.6); Lymphocytes # 1.5 10^3/uL (0.8-4.8); Lymphocytes % 8.8 %; Mean Corpuscular Hemoglobin 30.3 pg (28.0-34.0); Mean Corpuscular Volume 97.9 fL (80-94); Mean Platelet Volume 10.7 fL (7.4-10.4); Monocytes # 1.1 10^3/uL (0.2-0.9); Monocytes % 6.3 %; Neutrophils # 14.1 10^3/uL (1.8-7.7); Neutrophils % 83.2 %; Nucleated Red Blood Cells # 0.1 /100WBC; Nucleated Red Blood Cells % 0.5 %; Platelet Count 208 10^3/cmm (130-400); Red Cell Distribution Width 15.9 % (12.1-15.1); White Blood Count 16.9 10^3/uL (4.0-10.0)
[2020-01-16 05:36] LABS: Anion Gap 15.6 (5-19); Blood Urea Nitrogen 56 mg/dL (8-23); Calcium 8.3 mg/dL (8.5-10.5); Carbon Dioxide 28 mmol/L (22-29); Chloride 107 mmol/L (98-107); Glucose 128 mg/dL (65-115); Osmolality Calculated 302 mOsm/kg (285-295); Potassium 4.6 mmol/L (3.5-5.1); Sodium 146 mmol/L (136-145)
[2020-01-16] MEDS: budesonide 0.5 mg/2 mL Neb 0.25 MG INHALATION (08:27)
[2020-01-16] MEDS: pantoprazole DR 40 mg Tablet PO (08:28)
[2020-01-16] MEDS: azithromycin 250 mg Tablet 500 MG PO (08:28)
[2020-01-16] MEDS: atorvastatin 40 mg Tablet PO (08:28)
[2020-01-16] MEDS: montelukast sodium 10 mg Tablet PO (08:28)
[2020-01-16 08:47] LABS: Glucose Point of Care 141 mg/dL (70-110)
--- NOTE | 2020-01-16 10:00 | PC.SOCIAL ---
IMM Updated Page 2 of IMM updated and provided to patient. Initialed, dated, and timed and placed back in chart.
--- NOTE | 2020-01-16 10:25 | XRR_ITS ---
PROCEDURE INFORMATION: Exam: XR Chest, 1 View Exam date and time: 01/16/2020 10:39 AM Age: 74 years old Clinical indication: Condition or disease; Other: S/P bronchoscopy; Prior surgery; Surgery date: Post-operative (0-2 days); Additional info: S/P bronchoscopy, increased fio2, hemoptysis TECHNIQUE: Imaging protocol: XR of the chest Views: 1 view. COMPARISON: CT chest [facility] [id number] 01/12/2020 1:40 PM FINDINGS: Lungs: Interstitial prominence diffusely. Dense airspace consolidation right lung base greater than left. Patchy airspace disease within the mid lungs right greater than left. Emphysema Pleural space: Subpulmonic effusions bilaterally right greater than left. Heart/Mediastinum: Unremarkable. No cardiomegaly. Bones/joints: Unremarkable. XR/XR chest 1V portable [id number] IMPRESSION: Interstitial prominence diffusely. Dense airspace consolidation right lung base greater than left. Patchy airspace disease within the mid lungs right greater than left. Subpulmonic effusions bilaterally right greater than left. No pneumothorax
--- NOTE | 2020-01-16 10:25 | P.PN_ITS ---
Subjective Subjective: Interval history: Overnight was reportedly somewhat upset about need for airborne precautions and testing for TB. No noted hemoptysis but has required increased FiO2 with intermittent hypoxia. Bradycardia persists. Normotensive and afebrile. Stable leukocytosis at 16.9, slight drop in hemoglobin from 9.6->8.8 this morning, slight worsening in renal function. We will add vancomycin per pharmacy dosing. Order repeat chest x-ray given increased oxygen requirement. Throughout the day, has progressively required more oxygen and even with FiO2 of 100%, continues to desaturate. Had an episode of hemoptysis this afternoon as well. Discussed need for vent support with persistent hypoxia, confirmed on ABG, and hemoptysis which patient is agreeable to. Also discussed need for transfer with continued decompensation and patient and agreeable to this as well. Patient intubated by Dr. Hope at approximately 1545 with noted thick bloody sputum. Placement of ETT and OG tube confirmed on x-ray. Start sedation with propofol. Medications: Reviewed: Yes Medication Review Details: Active Medications Generic Name Dose Route Start Last Admin Trade Name Freq PRN Reason Stop Dose Admin Albuterol Sulfate 2.5 mg 01/15/20 06:25 Albuterol INHALATION ONCE PRN WHEEZING Albuterol/Ipratrop ium 3 ml 01/07/20 21:28 01/16/20 08:27 Duoneb INHALATION 3 ml Q6H.RESPIRATORY S [facility] Administration Atorvastatin Calci um 40 mg 01/08/20 09:00 01/16/20 08:28 Lipitor PO 40 mg DAILY [facility] Administration Azithromycin 500 mg 01/13/20 09:00 01/16/20 08:28 Zithromax PO 500 mg DAILY [facility] Administration Protocol Budesonide 0.25 mg 01/10/20 20:00 01/16/20 08:27 Pulmicort INHALATION 0.25 mg BID.RESPIRATORY S CH Administration Dextrose 25 ml 01/08/20 10:05 D50w IVP ONCE PRN hypoglycemia prot ocol Protocol Dextrose 50 ml 01/08/20 10:05 D50w IVP PRN PRN hypoglycemia prot ocol Protocol Famotidine 20 mg 01/15/20 06:25 Pepcid Inj IVP ONCE PRN HEARTBURN Fentanyl 50 mcg 01/15/20 06:25 Sublimaze IVP Q10M PRN Preop Pain Fentanyl 100 mcg 01/15/20 06:25 Sublimaze IVP ONCE PRN Per anesthesia fo r block Fluticasone Propio jay 1 spray 01/08/20 09:00 01/16/20 09:08 Flonase INTRANASAL Not Given DAILY [facility] Glucagon 1 mg 01/08/20 10:05 Glucagen IM ONCE PRN Adult Acute Hypog lycemia Prot. Protocol Piperacillin Sod/T azobactam 50 mls @ 12.5 mls /hr 01/07/20 23:00 01/16/20 08:28 Sod 3.375 gm/ So dium Chloride IV 12.5 mls/hr Q8H [facility] Administration Protocol Dextrose 500 mls @ 100 mls /hr 01/08/20 10:05 D5w IV ONCE PRN Adult Acute Hypog lycemia Prot Protocol Levofloxacin/Dextr ose 750 mg in 150 mls @ 100 mls/hr 01/09/20 22:30 01/15/20 21:20 Levaquin-D5w IV 100 mls/hr Q48H [facility] Administration Protocol Vancomycin HCl / S odium 250 mls @ 0 mls/h r 01/16/20 10:30 Chloride [id number] PROTOCOL [facility] Protocol As Directed Insulin Aspart 0 unit 01/08/20 12:00 01/16/20 08:28 Novolog SUBCUT 2 unit WM&BEDTIME [facility] Administration Protocol Ipratropium Bromid e 0.5 mg 01/15/20 06:25 Atrovent Neb INHALATION ONCE PRN WHEEZING Isosorbide Mononit rate 15 mg 01/14/20 13:15 01/16/20 01:01 Imdur PO Not Given Q12H [facility] Lidocaine HCl 1 ml 01/15/20 06:25 Lidocaine 2% Vis cous TOPICAL PRN PRN Anesthetic prior to IV start Methylprednisolone Sodium Succinate 40 mg 01/12/20 15:15 01/16/20 08:27 Solu-Medrol IVP 40 mg Q6H [facility] Administration Metoclopramide HCl 10 mg 01/15/20 06:25 Reglan IVP ONCE PRN N/V if zofran ine ffective Midazolam HCl 2 mg 01/15/20 06:25 Versed IVP Q5M PRN Preop Anxiety Midazolam HCl 5 mg 01/15/20 06:25 Versed IVP ONCE PRN Per anesthesia fo r block Montelukast Sodium 10 mg 06/16/20 09:00 01/16/20 08:28 Singulair PO 10 mg DAILY [facility] Administration Ondansetron HCl 4 mg 01/15/20 06:25 Zofran IVP Q5M PRN NAUSEA AND VOMITI NG Pantoprazole Sodiu m 40 mg 01/08/20 10:15 01/16/20 08:28 Protonix PO 40 mg DAILY [facility] Administration Scopolamine 1 patch 01/15/20 06:25 Transderm-Scop TRANSDERMA ONCE PRN Nausea/ Vomiting Prophylaxis No Known Allergies Allergy (Verified 01/07/20 17:46) Vitals/I&O/Wt Last Vital Signs Temp 99.0 F 01/16/20 02:00 Pulse 50 L 01/16/20 08:41 Resp 18 01/16/20 08:41 BP 127/38 01/16/20 08:00 Pulse Ox 83 L 01/16/20 09:00 01/15/20 01/16/20 01/16/20 22:59 06:59 14:59 Intake Total 410 / 1410 50 / 1460 360 / 360 Output Total 500 / 500 Balance -90 / 910 50 / 960 360 / 360 Weight last 48 hrs Weight 98.033 kg Weight 98.747 kg Physical Exam Const: COMMON NORMALS: no acute distress, patient oriented x3 and alert GENERAL APPEARANCE: cooperative, comfortable and ill appearing (A little more every day) NUTRITIONAL APPEARANCE: obese morbidly obese ORIENTATION/CONSCIOUSNESS: Yes awake OTHER: -looks appropriate for age; fatigued HENMT: COMMON NORMALS: normocephalic, atraumatic, hearing grossly normal bilaterally and moist oral mucous membranes HEAD & SCALP: normocephalic and atraumatic Eye: COMMON NORMALS: Equal, round and reactive pupils present, EOMs intact bilaterally and conjunctivae normal CONJUNCTIVA: Yes conjunctivae normal PUPIL: Yes Equal, round and reactive pupils present Neck/C-Spine: COMMON NORMALS: full ROM GENERAL: Yes normal visual inspection and Yes trachea midline Chest: CHEST: Yes Symmetrical chest wall rise Resp: COMMON NORMALS: normal respiratory effort, No retractions and No use of accessory muscles EFFORT & INSPECTION: Yes able to speak in complete sentences, Yes symmetric chest movement and No tachypneic AUSCULTATION: rhonchi right upper and right lower, wheezes expiratory wheezes and diminished lung sounds bilateral in the lower lung patel OTHER: -on high-flow oxygen (40L, FiO2-75%); coarse breath sounds particularly on the R Cardio: COMMON NORMALS: regular rhythm, S1 normal heart sound present, S2 normal heart sound present and No murmurs present (Cardio) RATE: bradycardic RHYTHM: regular rhythm HEART SOUNDS: S1 normal heart sound present and S2 normal heart sound present GI: COMMON NORMALS: Normal to inspection, nondistended, normoactive bowel sounds present, Soft to palpation and non-tender INSPECTION: Yes central obesity PALPATION: Yes Soft to palpation Back/Pelvis: COMMON NORMALS: thoracic and lumbar spine normal to inspection Extremity: COMMON NORMALS: normal to inspection, full ROM, no clubbing, cyanosis or edema and no pedal edema Neuro: COMMON NORMALS: patient oriented x3, moves all extremities, no focal motor deficits and no sensory deficits noted SENSORIUM/ORIENTATION: Yes alert Psych: COMMON NORMALS: mental status grossly normal, Normal thought process present, cooperative, normal affect and speech normal SPEECH: Yes normal speech THOUGHT PROCESS: Normal thought process present Skin: COMMON NORMALS: no rashes or lesions noted, no jaundice, no petechiae and no mottling GENERAL SKIN EXAM: no rashes or lesions noted Data : 01/16/20 12:00 01/16/20 04:25 A&P Assessment and plan (1) Pneumonia: -recently diagnosed with community-acquired pneumonia, had been on treatment with levaquin -recently tested for COVID-19, negative -on Zosyn, Levaquin, Azithromycin (for atypical coverage); will add vancomycin, Primaxin due to ill appearance, persistent leukocytosis and increasing oxygen requirement for broad-spectrum antibiotic coverage. Will also add Fluconazole for antifungal coverage -blood cx: negative -imaging reviewed -afebrile, increased leukocytosis; continue to trend WBC and monitor vital signs -sputum cx sent from PCP including mycobacterial smear; prelim negative for AFB. Sputum cx positive for Pseudomonas aeruginosa, sensitivity noted. Repeat sputum cx-mixed christiano, gram stain positive for GPC -bacterial antigens and Legionella negative -close monitoring of respiratory status -home oxygen evaluation prior to d/c if still oxygen dependent -repeat imaging including CT chest shows progression of pneumonia Status: Acute Qualifiers: Laterality: bilateral Lung location: lower lobe of lung Pneumonia type: due to unspecified organism Qualified Code(s): J18.9 - Pneumonia, unspecified organism (2) Hemoptysis: -hemoptysis noted with continued drop in Hg (10.9--->8.8) -continue to monitor H/H closely and continue to hold AC; INR-1.04; has been off heparin x > 72 hrs -Consult by Dr. 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 Unable to lay flat for imaging and then decompensated and had to be intubated -order ALMAS, ANCA, C3, C4, anti-dsDNA, SAUL, ESR, CRP Status: Acute (3) AV heart block: -noted high grade AV block and bradycardia -BB on hold, had been on Coreg 6.25 mg BID prior to hospitalization -telemetry monitoring -HRs in the 40-50 range, BP stable; continue to monitor vital signs -Echo: EF=55%, G1DD, mild LVH, trace AR, mild-moderate MR, trace to mild TR; previous done in 03/2019 showed EF=49%, G1DD -Cardiology consult by Dr. Yadav and Dr. Florez appreciated -if persistent and symptomatic, may need pacemaker; anticipate discharge with event monitoring to allow for completion of antibiotic treatment course and resolution of pneumonia Status: Acute (4) Bradycardia: -noted above Status: Acute (5) HAZEL (acute kidney injury): -HAZEL on CKD stage 2 -baseline Cr wnl -slight worsening in renal function likely due to diuresis, continue to monitor -avoid nephrotoxins, renally dose meds Status: Acute (6) COPD exacerbation: -acute COPD exacerbation; likely triggered by pneumonia -not oxygen dependent at baseline; may need home oxygen evaluation prior to d/c -continue to monitor respiratory status -on steroids (switched to IV), Neb treatments and antibiotics -supplemental oxygen as needed Status: Acute (7) CAD (coronary artery disease): -follows up with Dr. Florez -s/p CABG Status: Chronic Qualifiers: Associated angina: without angina Coronary Disease-Associated Artery/Lesion type: [place] artery [place] vs. transplanted heart: [place] heart Qualified Code(s): I25.10 - Atherosclerotic heart disease of [place] coronary [place] without angina pectoris (8) DARIUS (obstructive sleep apnea): -CPAP qhs Status: Chronic (9) CKD (chronic kidney disease) stage 2, GFR 60-89 ml/min: -as noted above Status: Chronic (10) Chronic anemia: -continue to monitor H/H particularly with hemoptysis Status: Acute (11) HTN (hypertension): -normotensive -continue to monitor vitals -Coreg on hold due to bradycardia; ACEi on hold due to renal impairment Status: Chronic Qualifiers: Hypertension type: essential hypertension Qualified Code(s): I10 - Essential (primary) hypertension (12) Non-insulin dependent diabetes mellitus: -A1c-5.9 -accuchecks, ISS, hypoglycemia precautions -hold metformin -anticipate hyperglycemia with steroid use and acute illness -consistent carb diet as tolerated Status: Chronic (13) Obesity: -BMI-31 kg/m2 Status: Chronic Qualifiers: Body mass index: BMI 30.0-30.9 Obesity classification: adult class 1 (BMI 30 - 34.9) Obesity type: due to excess calories Serious obesity comorbidity presence: with serious comorbidity Qualified Code(s): E66.09 - Other obesity due to excess calories; Z68.30 - Body mass index (BMI) 30.0-30.9, adult Additional A&P Information -GI ppx with PPI -DVT ppx with SCDs, heparin on hold due to hemoptysis and worsening anemia -Dispo: home -Code status: FULL code -ICU care due to need for close monitoring of respiratory status with increased oxygen requirement Transfer to higher level of care Attestations Medical Necessity Statement*: Patient requires hospitalization for continued management of persistent pneumonia with increasing oxygen requirement and persistent hemoptysis with acute blood loss anemia; needs continued close monitoring of respiratory status and hemoglobin as well as broad-spectrum IV antibiotics. Time Spent in Patient Care: Greater than 35 minutes (>than 50% of time spen t in counselling and/or direct pt care on unit) . Critical Care Time: The high probability of a clinically significant, sudden or life threatening deterioration of the patient's [cardiovascular, respiratory] system(s) required my full and direct attention, intervention and personal management. The critical care time is as shown. This time is in addition to time spent performing any reported procedures but includes the following: [x] Data and vital sign review and interpretation [x] Patient assessment, examination and intervention [x] Documentation [x] Medication orders and management Critical Care Time (min): 45 Coding Level of Care Code Acute Multiple Spindle Router Operator for g Fwd Exam Comprehensive Diagnoses Pneumonia J18.9 Laterality: bilateral Lung location: lower lobe of lung Pneumonia type: due to unspecified organism Hemoptysis R04.2 AV heart block I44.30 Bradycardia R00.1 HAZEL (acute kidney injury) N17.9 COPD exacerbation J44.1 CAD (coronary artery disease) I25.10 Associated angina: without angina Coronary Disease-Associated Artery/Lesion type: [place] artery [place] vs. transplanted heart: [place] heart DARIUS (obstructive sleep apnea) G47.33 CKD (chronic kidney disease) stage 2, GFR 60-89 ml/min N18.2 Chronic anemia D64.9 HTN (hypertension) I10 Hypertension type: essential hypertension Non-insulin dependent diabetes mellitus Obesity E66.09; Z68.30 Body mass index: BMI 30.0-30.9 Obesity classification: adult class 1 (BMI 30 - 34.9) Obesity type: due to excess calories Serious obesity comorbidity presence: with serious comorbidity
--- NOTE | 2020-01-16 10:54 | PC.NURSE ---
Blood in sputum Helping sit patient up for cxr and patient coughed up thick, dark blood, about 3ml into napkin. Dr. Martin notified, new orders to be placed.
[2020-01-16] MEDS: bumetanide 0.25 mg/mL SDV 10 mL 1 MG IV (11:05)
--- NOTE | 2020-01-16 11:51 | PM.PN ---
Subjective Subjective: Interval history: Stable cardiac chapin sinus bradycardia with AV dissociation otherwise stable Medications: Reviewed: Yes Medication Review Details: Active Medications Generic Name Dose Route Start Last Admin Trade Name Freq PRN Reason Stop Dose Admin Albuterol Sulfate 2.5 mg 01/15/20 06:25 Albuterol INHALATION ONCE PRN WHEEZING Albuterol/Ipratrop ium 3 ml 01/07/20 21:28 01/16/20 08:27 Duoneb INHALATION 3 ml Q6H.RESPIRATORY S CH Administration Atorvastatin Calci um 40 mg 01/08/20 09:00 01/16/20 08:28 Lipitor PO 40 mg DAILY [facility]ANNA[facility] Administration Azithromycin 500 mg 01/13/20 09:00 01/16/20 08:28 Zithromax PO 500 mg DAILY [facility]ANNA[facility] Administration Protocol Budesonide 0.25 mg 01/10/20 20:00 01/16/20 08:27 Pulmicort INHALATION 0.25 mg BID.RESPIRATORY S CH Administration Dextrose 25 ml 01/08/20 10:05 D50w IVP ONCE PRN hypoglycemia prot ocol Protocol Dextrose 50 ml 01/08/20 10:05 D50w IVP PRN PRN hypoglycemia prot ocol Protocol Famotidine 20 mg 01/15/20 06:25 Pepcid Inj IVP ONCE PRN HEARTBURN Fentanyl 50 mcg 01/15/20 06:25 Sublimaze IVP Q10M PRN Preop Pain Fentanyl 100 mcg 01/15/20 06:25 Sublimaze IVP ONCE PRN Per anesthesia fo r block Fluticasone Propio jay 1 spray 01/08/20 09:00 01/16/20 09:08 Flonase INTRANASAL Not Given DAILY [facility] Glucagon 1 mg 01/08/20 10:05 Glucagen IM ONCE PRN Adult Acute Hypog lycemia Prot. Protocol Piperacillin Sod/T azobactam 50 mls @ 12.5 mls /hr 01/07/20 23:00 01/16/20 08:28 Sod 3.375 gm/ So dium Chloride IV 12.5 mls/hr Q8H [facility] Administration Protocol Dextrose 500 mls @ 100 mls /hr 01/08/20 10:05 D5w IV ONCE PRN Adult Acute Hypog lycemia Prot Protocol Levofloxacin/Dextr ose 750 mg in 150 mls @ 100 mls/hr 01/09/20 22:30 01/15/20 21:20 Levaquin-D5w IV 100 mls/hr Q48H [facility] Administration Protocol Vancomycin HCl / S odium 250 mls @ 0 mls/h r 01/16/20 10:30 Chloride [id number] PROTOCOL [facility] Protocol As Directed Insulin Aspart 0 unit 01/08/20 12:00 01/16/20 08:28 Novolog SUBCUT 2 unit WM&BEDTIME [facility] Administration Protocol Ipratropium Bromid e 0.5 mg 01/15/20 06:25 Atrovent Neb INHALATION ONCE PRN WHEEZING Isosorbide Mononit rate 15 mg 01/14/20 13:15 01/16/20 01:01 Imdur PO Not Given Q12H [facility] Lidocaine HCl 1 ml 01/15/20 06:25 Lidocaine 2% Vis cous TOPICAL PRN PRN Anesthetic prior to IV start Methylprednisolone Sodium Succinate 40 mg 01/12/20 15:15 01/16/20 08:27 Solu-Medrol IVP 40 mg Q6H [facility] Administration Metoclopramide HCl 10 mg 01/15/20 06:25 Reglan IVP ONCE PRN N/V if zofran ine ffective Midazolam HCl 2 mg 01/15/20 06:25 Versed IVP Q5M PRN Preop Anxiety Midazolam HCl 5 mg 01/15/20 06:25 Versed IVP ONCE PRN Per anesthesia fo r block Montelukast Sodium 10 mg 01/08/20 09:00 01/16/20 08:28 Singulair PO 10 mg DAILY [facility] Administration Ondansetron HCl 4 mg 01/15/20 06:25 Zofran IVP Q5M PRN NAUSEA AND VOMITI NG Pantoprazole Sodiu m 40 mg 01/08/20 10:15 01/16/20 08:28 Protonix PO 40 mg DAILY [facility] Administration Scopolamine 1 patch 01/15/20 06:25 Transderm-Scop TRANSDERMA ONCE PRN Nausea/ Vomiting Prophylaxis No Known Allergies Allergy (Verified 01/07/20 17:46) Vitals/I&O/Wt Last Vital Signs Temp 99.0 F 01/16/20 02:00 Pulse 50 L 01/16/20 08:41 Resp 18 01/16/20 08:41 BP 127/38 01/16/20 08:00 Pulse Ox 83 L 01/16/20 09:00 01/15/20 01/16/20 01/16/20 22:59 06:59 14:59 Intake Total 410 / 1410 50 / 1460 360 / 360 Output Total 500 / 500 225 / 225 Balance -90 / 910 50 / 960 135 / 135 Weight last 48 hrs Weight 216 lb 2 oz Weight 217 lb 11.2 oz Physical Exam Narrative: EXAM NARRATIVE: GENERAL: Patient is well oriented alert NECK: No jugular vein distension. HEENT: No cyanosis. No icterus. pallor. HEART: Regular S1 and S2. No murmur, rub or gallop. LUNGS: Decreased breath no crackles bilaterally. ABDOMEN: Soft, nontender and nondistended. Positive bowel sounds. No guarding, rebound or tenderness. CENTRAL NERVOUS SYSTEM: Nonfocal eXTREMITIES: Lower extremities without edema bilaterally. Data : 01/16/20 04:25 01/16/20 04:25 A&P Assessment and plan (1) Hemoptysis: Status post bronchoscopy for intermittent hemoptysis. Pending test for tuberculosis Status: Acute (2) HTN (hypertension): Well-controlled continue meds Status: Chronic Qualifiers: Hypertension type: essential hypertension Qualified Code(s): I10 - Essential (primary) hypertension (3) CAD (coronary artery disease): Stable. Continue to monitor Status: Chronic Qualifiers: Coronary Disease-Associated Artery/Lesion type: [place] artery [place] vs. transplanted heart: [place] heart Associated angina: without angina Qualified Code(s): I25.10 - Atherosclerotic heart disease of [place] coronary artery without angina pectoris (4) AV heart block: Heart block. Requires permanent pacemaker however due to infection we will defer it until infection Clears. Status: Acute Additional A&P Information Hemoptysis : Patient continues to have hemoptysis macrocytic anemia History of DARIUS on CPAP Attestations Medical Necessity Statement*: Require continuation of hospitalization for above defined care. Coding Level of Care Code Established Pt Acute Cardio Clinician for Angelika Mckenzie Patient Type Established History Expanded Problem Focused Exam Expanded Problem Focused Medical Decision Making Moderate Complexity Diagnoses Hemoptysis R04.2 HTN (hypertension) I10 Hypertension type: essential hypertension CAD (coronary artery disease) I25.10 Coronary Disease-Associated Artery/Lesion type: [place] artery [place] vs. transplanted heart: [place] heart Associated angina: without angina AV heart block I44.30
[2020-01-16] MEDS: fluconazole 100 mg Tablet 400 MG PO (12:14)
[2020-01-16 12:41] LABS: Glucose Point of Care 142 mg/dL (70-110)
[2020-01-16 12:46] LABS: ABG PH Result 7.36 (7.35-7.45)
[2020-01-16 12:47] LABS: ABG PCO2 51.3 mmHg (35-45); HCO3 ABG 29.1 mmol/L (22-26)
[2020-01-16 12:48] LABS: Arterial Blood Gas Hematocrit 29.1 % (42-52); Blood Gas Sample Type Arterial
[2020-01-16 12:55] LABS: Hematocrit 29.2 % (42.0-52.0); Hemoglobin 9.2 g/dL (11.7-16.6)
[2020-01-16] MEDS: isosorbide mononitrate ER 30 mg Tablet 15 MG PO (13:18)
--- NOTE | 2020-01-16 13:59 | PC.NURSE ---
Low [address] Martin called and notified of patients oxygen trending down, even on 100% high flow. Order to prep patient for intubation. Patient's called and updated.
[2020-01-16 14:08] LABS: Blood Gas Allen Test Pos; Blood Gas Operator Identificat glc; Blood Gas Sample Site Radial, left; Oxygen Device VENTURI
[2020-01-16 14:18] LABS: Erythrocyte Sedimentation Rate 19 mm/hr (0-10)
[2020-01-16 14:28] LABS: Complement C3 106 mg/dL (90-180)
--- NOTE | 2020-01-16 14:46 | XRR_ITS ---
PROCEDURE INFORMATION: Exam: XR Chest, 1 View Exam date and time: 01/16/2020 4:09 PM Age: 74 years old Clinical indication: Device placement; Other: Og placement; Additional info: Post-intubation TECHNIQUE: Imaging protocol: XR of the chest Views: 1 view. COMPARISON: CR XR chest 1V portable [id number] 01/16/2020 10:27 AM FINDINGS: Lungs: Diffuse parenchymal densities are seen throughout the right lung appearing increased since prior study. This finding corresponds to pulmonary vascular hypertension with pulmonary edema. There is a large parenchymal consolidation seen in the right lower lobe this finding has increased since prior study and is consistent with pneumonia or pulmonary edema. The left lung is incompletely visible. Pleural space: Unremarkable. No pleural effusion. No pneumothorax. Heart/Mediastinum: Unremarkable. No cardiomegaly. Bones/joints: Metallic sternotomy wires are in place. NG tube is in place extending to the distal esophagus. This finding should be advanced at least 9 cm. Endotracheal tube is in place the tip is 5 cm above the angelo. XR/XR chest 1V portable [id number] IMPRESSION: Diffuse pulmonary vascular hypertension right lung. Right lower lobe pulmonary edema or pneumonia Endotracheal tube is in place as described NG tube is in the distal esophagus
--- NOTE | 2020-01-16 16:17 | ED_ITS ---
HPI - SOB/Dyspnea General: Chief Complaint: Shortness of Breath/Dyspnea Stated Complaint: sob Time Seen by Provider: 01/07/20 17:16 Source: patient Mode of arrival: ambulatory Limitations: no limitations History of Present Illness: HPI Narrative: I was asked by Dr. Caba to intubate this 74-year-old male who was decompensating with a PCO2 of 50 they are unable to high flow oxygen to maintain his oxygenation standard. Gi arrived at the ICU patient was awake answers questions discussed the procedure with him he wishes to proceed Related Data: Home oxygen amount: none PFSH ED PFSH: Medical History CAD (coronary artery disease) Chronic anemia -baseline Hg around 10 CKD (chronic kidney disease) stage 2, GFR 60-89 ml/min -baseline Cr wnl COPD (chronic obstructive pulmonary disease) Fracture, femoral HTN (hypertension) Non-insulin dependent diabetes mellitus Obesity DARIUS (obstructive sleep apnea) Surgical History Hx of CABG Hx of cholecystectomy Family History Mother CAD (coronary artery disease) Social History Smoking and tobacco status: former smoker Alcohol intake: never Household members: spouse Marital status: Current occupational status: retired Procedures Intubation Time out performed: Yes sedative: Etomidate paralytic: Succinylcholine Laryngoscope: fiber optic video scope ET Tube Size: 8 ET Tube Uncuffed: Yes Tube Secured Depth (cm): 23 Tube Secured Location: teeth Tube Placement Confirmation: visualized tube passing through cords, equal breath sounds bilaterally, no breath sounds over epigastrium and confirmation by capnometry Patient Tolerated Procedure: well Intubation Complications: none Additional Comments: Patient intubated fiberoptic rhinoscope in the first time without complications. In addition to etomidate and sucks was given 50 fentanyl patient left in the ICU Dr. Caba will care for the patient. Course Vital Signs: Vital signs: Vital Signs Temperature 97.1 F L 01/16/20 14:00 Pulse Rate 48 L 01/16/20 15:17 Respiratory Rate 26 H 01/16/20 15:17 Blood Pressure 130/44 01/16/20 14:00 Pulse Oximetry 94 01/16/20 15:17 MDM - SOB/Dyspnea Lab Data: Labs: Lab Results 01/07/20 01/07/20 01/07/20 Range/Units 17:43 17:43 17:43 WBC 14.6 H (4.0-10.0) 10^3/ uL RBC 3.61 L (4.1-5.3) 10^6/u L Hgb 10.9 L (11.7-16.6) g/dL Hct 37.2 L (42.0-52.0) % MCV 103.0 H (80-94) fL MCH 30.2 (28.0-34.0) pg MCHC 29.3 L (30.0-36.0) g/dL RDW 14.6 (12.1-15.1) % Plt Count 216 (130-400) 10^3/c mm MPV 11.0 H (7.4-10.4) fL Neut % (Auto) 78.3 % Lymph % (Auto) 14.3 % [place] % (Auto) 5.9 % Eos % (Auto) 0.5 % Baso % (Auto) 0.4 % Neut # (Auto) 11.4 H (1.8-7.7) 10^3/u L Lymph # (Auto) 2.1 (0.8-4.8) 10^3/u L [place] # (Auto) 0.9 (0.2-0.9) 10^3/u L Eos # (Auto) 0.1 (0.0-0.8) 10^3/u L Baso # (Auto) 0.1 (0.0-0.1) 10^3/u L Nucleated RBC % (a uto) 0 % Nucleated RBCs # 0.0 /100WBC Sodium 139 (136-145) mmol/L Potassium 4.5 (3.5-5.1) mmol/L Chloride 108 H (98-107) mmol/L Carbon Dioxide 18 L (22-29) mmol/L Anion Gap 17.5 (5-19) BUN 34 H (8-23) mg/dL Creatinine 1.5 H (0.7-1.2) mg/dL Glucose 95 (65-115) mg/dL Calculated Osmolal ity 285 (285-295) mOsm/k g Calcium 8.9 (8.5-10.5) mg/dL Total Bilirubin 0.6 (0.15-1.2) mg/dL AST 16 (0-40) U/L ALT 28 (0-41) U/L Alkaline Phosphata se 145 H (40-130) IU/L Troponin T Baselin e 21 H (0-15) ng/L NT-Pro-B Natriuret Pep 2528 H (0-450) pg/mL Total Protein 6.2 L (6.6-8.7) g/dL Albumin 2.9 L (3.5-5.2) g/dL Globulin 3.3 (1.3-4.6) g/dL Discharge Plan Discharge Patient Disposition: Admitted As Inpatient Admit Provider: Kev Dockery Clinical Impression: Respiratory failure, Community acquired pneumonia, Congestive heart failure, Bradycardia Condition: Stable Interventions: ED Discharge Assessment Last Done: 01/07/20 21:17 ED Charges Last Done: 01/07/20 21:17 Discharge Date/Time: 01/07/20 21:20 Coding Level of Care Code ED Supervisor Road Administrator for Angelika Mckenzie
[2020-01-16] MEDS: fentaNYL 50 mcg/mL INJ 2mL 100 MCG IVP (16:59)
[2020-01-16] MEDS: succinylcholine 20 mg/mL SDV 10mL 150 MG IVP (17:00)
[2020-01-16] MEDS: propofol 1,000 MG/100 ML INJ 11.8 MG IV (17:02)
--- NOTE | 2020-01-16 17:32 | P.TS_ITS ---
Transfer Summary Providers Date of Admission: 01/07/20 19:22 Date of Discharge: 01/16/20 Attending Provider at Admission: Kev Dockery Attending Provider at Transfer: Veronica Caba MD Primary Care Provider: Hema Hartman MD Anticipated Date of Transfer: Anticipated date of transfer: 01/16/20 Receiving Facility & Provider: Receiving Provider: [Dr. Pineda, [facility] [employer]] Receiving facility: [[place], [place]] Diagnoses at Discharge Discharge Diagnosis (1) Pneumonia: Status: Acute Problem details: -recently diagnosed with community-acquired pneumonia, had been on treatment with levaquin -recently tested for COVID-19, negative -on Zosyn, Levaquin, Azithromycin (for atypical coverage); will add vancomycin, Primaxin due to ill appearance, persistent leukocytosis and increasing oxygen requirement for broad-spectrum antibiotic coverage. Will also add Fluconazole for antifungal coverage -blood cx: negative -imaging reviewed -afebrile, increased leukocytosis; continue to trend WBC and monitor vital signs -sputum cx sent from PCP including mycobacterial smear; prelim negative for AFB. Sputum cx positive for Pseudomonas aeruginosa, sensitivity noted. Repeat sputum cx-mixed christiano, gram stain positive for GPC -bacterial antigens and Legionella negative -close monitoring of respiratory status -repeat imaging including CT chest shows progression of pneumonia -intubated this afternoon due to clinical deterioration Qualifiers: Pneumonia type: due to unspecified organism Laterality: bilateral Lung location: lower lobe of lung Qualified Code(s): J18.9 - Pneumonia, unspecified organism (2) Hemoptysis: Status: Acute Problem details: -hemoptysis noted with continued drop in Hg (10.9--->8.8) -continue to monitor H/H closely and continue to hold AC; INR-1.04; has been off heparin x > 72 hrs -Consult by Dr. 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 Unable to lay flat for imaging and then decompensated and had to be intubated -pending ALMAS, ANCA, anti-dsDNA, SAUL; ESR-19, CRP-6.0, C3-106, C4-24 (3) AV heart block: Status: Acute Problem details: -noted high grade AV block and bradycardia -BB on hold, had been on Coreg 6.25 mg BID prior to hospitalization -telemetry monitoring -HRs in the 40-50 range, BP stable; continue to monitor vital signs -Echo: EF=55%, G1DD, mild LVH, trace AR, mild-moderate MR, trace to mild TR; previous done in 03/2019 showed EF=49%, G1DD -Cardiology consult by Dr. Yadav and Dr. Florez appreciated -if persistent and symptomatic, may need pacemaker; anticipate discharge with event monitoring to allow for completion of antibiotic treatment course and resolution of pneumonia (4) Bradycardia: Status: Acute Problem details: -noted above (5) HAZEL (acute kidney injury): Status: Acute Problem details: -HAZEL on CKD stage 2 -baseline Cr wnl -slight worsening in renal function likely due to diuresis, continue to monitor -avoid nephrotoxins, renally dose meds (6) COPD exacerbation: Status: Acute Problem details: -acute COPD exacerbation; likely triggered by pneumonia -not oxygen dependent at baseline; may need home oxygen evaluation prior to d/c -continue to monitor respiratory status -on steroids (switched to IV), Neb treatments and antibiotics -supplemental oxygen as needed (7) CAD (coronary artery disease): Status: Chronic Problem details: -follows up with Dr. Florez -s/p CABG Qualifiers: Coronary Disease-Associated Artery/Lesion type: resighini artery [place] vs. transplanted heart: resighini heart Associated angina: without angina Qualified Code(s): I25.10 - Atherosclerotic heart disease of resighini coronary artery without angina pectoris (8) DARIUS (obstructive sleep apnea): Status: Chronic Problem details: -CPAP qhs (9) CKD (chronic kidney disease) stage 2, GFR 60-89 ml/min: Status: Chronic Problem details: -baseline Cr wnl (10) Chronic anemia: Status: Acute Problem details: -baseline Hg around 10 (11) HTN (hypertension): Status: Chronic Problem details: -normotensive -continue to monitor vitals -Coreg on hold due to bradycardia; ACEi on hold due to renal impairment Qualifiers: Hypertension type: essential hypertension Qualified Code(s): I10 - Essential (primary) hypertension (12) Non-insulin dependent diabetes mellitus: Status: Chronic Problem details: -A1c-5.9 -accuchecks, ISS, hypoglycemia precautions -hold metformin -anticipate hyperglycemia with steroid use and acute illness -consistent carb diet as tolerated (13) Obesity: Status: Chronic Problem details: -BMI-31 kg/m2 Qualifiers: Obesity type: due to excess calories Obesity classification: adult class 1 (BMI 30 - 34.9) Serious obesity comorbidity presence: with serious comorbidity Body mass index: BMI 30.0-30.9 Qualified Code(s): E66.09 - Other obesity due to excess calories; Z68.30 - Body mass index (BMI) 30.0-30.9, adult Reason for Visit Reason for Visit: sob Hospital Course Hospital Course: Patient was initially admitted to ICU secondary to need for isolation precautions due to COVID-19 testing based on patient's symptom presentation of primarily respiratory symptoms. Clinical picture at that time for pneumonia and patient was started on broad-spectrum IV antibiotics. Once COVID-19 testing results came back negative patient was taken off isolation precautions. He was noted to have persistent bradycardia with some heart block noted on telemetry and EKG so cardiology was consulted. Patient has consistently being monitored on telemetry and rhythm and rate has remained stable. In light of acute infection decision on pacemaker was postponed pending improvement in respiratory status. In the meantime patient had an echo done which shows an ejection fraction of 55% and grade 1 diastolic dysfunction. Clinically patient has progressively worsened throughout his hospital course and he has developed hemoptysis to the point where he has had acute blood loss anemia requiring transfusion of blood products, so far has received 2 units PRBCs with most recent Hg being 8.8. Hemoptysis persists and worsening pneumonia was evident on repeat imaging including CT. PE had been ruled out on initial imaging and in light of active bleeding and acute blood loss anemia, may not be a good candidate for anticoagulation. In fact hemoptysis has persisted despite discontinuation of anticoagulation which had initially been given at a prophylactic dose. Pressure has been stable and patient has consistently been afebrile. Leukocytosis has persisted. Following bronchoscopy with no noted overt lesions, extrinsic compression, active bleeding source identified patient had some difficulty being extubated and was transferred to ICU for closer monitoring. He was supported with heated high flow oxygen which has progressively had to be increased to support his oxygenation appropriately. Earlier today he was noted to continue to desaturate even with FiO2 of 100% and with noted hemoptysis, ill appearance and overall clinical picture, decision was made to intubate the patient. At this point patient had been continued on broad-spectrum IV antibiotics with addition of antifungal coverage. Blood cultures have been negative, Legionella, bacterial antigens, MRSA and sputum cultures have been negative as well. Patient reportedly has a history of latent TB that was just discovered so QuantiFERON has been ordered and patient was placed on airborne precautions. Repeat sputum culture has been ordered status post intubation. It is worth mentioning that on 12/31 patient had had a sputum culture that grew pseudomonas aeruginosa and mycobacterial smear that is prelim negative for AFB but culture is pending. Subsequent cultures have been negative. I have ordered some immunological testing including ALMAS, complement, ANCA which are pending. With patient's continued clinical deterioration and lack of pulmonology/critical care as well as infectious disease at our facility currently patient will be transferred to a higher level of care. I have contacted [facility] and Dr. Pineda has been gracious enough to accept the patient. Room has been assigned and transport is being arranged. Patient's has been updated by this provider. Physical Exam Const: COMMON NORMALS: no acute distress GENERAL APPEARANCE: ill appearing (A little more every day) and patient mechanically ventilated NUTRITIONAL APPEARANCE: obese morbidly obese HENMT: COMMON NORMALS: normocephalic, atraumatic, hearing grossly normal bilaterally and moist oral mucous membranes HEAD & SCALP: normocephalic and atraumatic OTHER: -orally intubated, ETT-23 cm @ lip. OGT in place Eye: COMMON NORMALS: Equal, round and reactive pupils present, EOMs intact bilaterally and conjunctivae normal CONJUNCTIVA: Yes conjunctivae normal PUPIL: Yes Equal, round and reactive pupils present Neck/C-Spine: COMMON NORMALS: full ROM GENERAL: Yes normal visual inspection and Yes trachea midline Chest: CHEST: Yes Symmetrical chest wall rise Resp: COMMON NORMALS: normal respiratory effort, No retractions and No use of accessory muscles EFFORT & INSPECTION: Yes symmetric chest movement and Yes tachypneic AUSCULTATION: rhonchi right upper and right lower, wheezes expiratory wheezes and diminished lung sounds bilateral in the lower lung patel OTHER: -on vent support (100%/600/8) -coarse breath sounds throughout, worse on the R Cardio: COMMON NORMALS: S1 normal heart sound present, S2 normal heart sound present, No murmurs present (Cardio) and Peripheral pulses 2+ throughout RATE: bradycardic RHYTHM: abnormal rhythm (AV heart block) HEART SOUNDS: S1 normal heart sound present and S2 normal heart sound present PERIPHERAL PULSES: Peripheral pulses 2+ throughout GI: COMMON NORMALS: Normal to inspection, nondistended, normoactive bowel sounds present, Soft to palpation and non-tender INSPECTION: Yes central obesity PALPATION: Yes Soft to palpation : BLADDER/KIDNEY EXAM: Yes catheter in place Catheter type (Male): urethral Back/Pelvis: COMMON NORMALS: thoracic and lumbar spine normal to inspection Extremity: COMMON NORMALS: normal to inspection, full ROM, no clubbing, cyanosis or edema and no pedal edema Neuro: OTHER: -sedated Psych: OTHER: -sedated Skin: COMMON NORMALS: no rashes or lesions noted, no jaundice, no petechiae and no mottling GENERAL SKIN EXAM: no rashes or lesions noted Urinary Catheter Management^: Rothman: Cath Placed During This Visit: yes Urethral Indwelling: Yes Reason for Continuing Indwelling Catheter: Accurate Measurement of Urinary Output in Critically Ill Patients Urinary Catheter Date of Insertion: 01/16/20 Urinary Catheter Time of Insertion: 16:30 TS Data Data Completed and Pending: Completed Studies During Hospitalization Category Date Time Status CT chest wo con 7 1250 Routine Cat Scan 01/12/20 13:30 Completed XR chest 1V no ble [id number] Routine Exams 01/11/20 11:16 Completed XR chest 1V no ble [id number] Routine Exams 01/14/20 08:06 Completed XR chest 1V no ble [id number] Routine Exams 01/16/20 10:25 Completed XR chest 1V no ble [id number] Stat Exams 01/16/20 14:46 Completed XR chest 1V no ble [id number] Urgent Exams 01/07/20 17:15 Completed CV echo complete* [id number] Routine Ultrasound 01/08/20 07:00 Completed Pending at discharge Category Date Time Status ES surgery / GI i mages Routine Exams 01/15/20 07:36 Ordered ALMAS Screen w/ Ref marisa Stat Lab 01/16/20 12:00 Received Angiotensin Conve rting Enzyme Stat Lab 01/16/20 12:00 Received Anti Double Stran ded DNA AB Stat Lab 01/16/20 12:00 Received Anti-Neutrophil C utoplasmic AB Stat Lab 01/16/20 12:00 Received Arterial Blood Ga s W/O Coox Routine Lab 01/16/20 15:46 Ordered Cgskkdspiog-SA-Rv ld Plus Stat Lab 01/15/20 18:36 Received Sputum Culture an d Gram Stain Routi ne Lab 01/16/20 15:45 Received Sputum Culture an d Gram Stain Stat Lab 01/16/20 13:25 Results Labs from last 24 hours 01/16/20 01/16/20 01/16/20 12:36 12:03 12:00 WBC RBC Hgb Hct MCV MCH MCHC RDW Plt Count MPV Neut % (Auto) Lymph % (Auto) [place] % (Auto) Eos % (Auto) Baso % (Auto) Neut # (Auto) Lymph # (Auto) [place] # (Auto) Eos # (Auto) Baso # (Auto) Nucleated RBC % (a uto) Nucleated RBCs # ESR 19 H Specimen Type Arterial Sample Site Radial, left ABG pH 7.36 ABG pCO2 51.3 H ABG pO2 58.0 L ABG HCO3 29.1 H ABG Base Excess 3.0 H Carlo Test Pos Hematocrit 29.1 L O2 Delivery Device Venturi O2 Liters/Min 45.0 FiO2 100.0 Fish Receiver ID glc Sodium Potassium Chloride Carbon Dioxide Anion Gap BUN Creatinine Glucose POC Glucose 142 Calculated Osmolal ity Calcium C-Reactive Protein Complement C3 Complement C4 01/16/20 01/16/20 01/16/20 12:00 12:00 07:41 WBC RBC Hgb 9.2 L Hct 29.2 L MCV MCH MCHC RDW Plt Count MPV Neut % (Auto) Lymph % (Auto) [place] % (Auto) Eos % (Auto) Baso % (Auto) Neut # (Auto) Lymph # (Auto) [place] # (Auto) Eos # (Auto) Baso # (Auto) Nucleated RBC % (a uto) Nucleated RBCs # ESR Specimen Type Sample Site ABG pH ABG pCO2 ABG pO2 ABG HCO3 ABG Base Excess Carlo Test Hematocrit O2 Delivery Device O2 Liters/Min FiO2 Fish Receiver ID Sodium Potassium Chloride Carbon Dioxide Anion Gap BUN Creatinine Glucose POC Glucose 141 Calculated Osmolal ity Calcium C-Reactive Protein 6.0 H Complement C3 106 Complement C4 24 01/16/20 01/16/20 01/15/20 04:25 04:25 21:17 WBC 16.9 H RBC 2.90 L Hgb 8.8 L Hct 28.4 L MCV 97.9 H MCH 30.3 MCHC 31.0 RDW 15.9 H Plt Count 208 MPV 10.7 H Neut % (Auto) 83.2 Lymph % (Auto) 8.8 [place] % (Auto) 6.3 Eos % (Auto) 0.0 Baso % (Auto) 0.1 Neut # (Auto) 14.1 H Lymph # (Auto) 1.5 [place] # (Auto) 1.1 H Eos # (Auto) 0.0 Baso # (Auto) 0.0 Nucleated RBC % (a uto) 0.5 Nucleated RBCs # 0.1 ESR Specimen Type Sample Site ABG pH ABG pCO2 ABG pO2 ABG HCO3 ABG Base Excess Carlo Test Hematocrit O2 Delivery Device O2 Liters/Min FiO2 Fish Receiver ID Sodium 146 H Potassium 4.6 Chloride 107 Carbon Dioxide 28 Anion Gap 15.6 BUN 56 H Creatinine 1.5 H Glucose 128 H POC Glucose 177 Calculated Osmolal ity 302 H Calcium 8.3 L C-Reactive Protein Complement C3 Complement C4 01/15/20 16:58 WBC RBC Hgb Hct MCV MCH MCHC RDW Plt Count MPV Neut % (Auto) Lymph % (Auto) [place] % (Auto) Eos % (Auto) Baso % (Auto) Neut # (Auto) Lymph # (Auto) [place] # (Auto) Eos # (Auto) Baso # (Auto) Nucleated RBC % (a uto) Nucleated RBCs # ESR Specimen Type Sample Site ABG pH ABG pCO2 ABG pO2 ABG HCO3 ABG Base Excess Carlo Test Hematocrit O2 Delivery Device O2 Liters/Min FiO2 Fish Receiver ID Sodium Potassium Chloride Carbon Dioxide Anion Gap BUN Creatinine Glucose POC Glucose 138 Calculated Osmolal ity Calcium C-Reactive Protein Complement C3 Complement C4 Vitals: Last Vital Signs Temp 97.1 F L 01/16/20 14:00 Pulse 48 L 01/16/20 15:17 Resp 19 H 01/16/20 15:40 BP 130/44 01/16/20 14:00 Pulse Ox 94 01/16/20 15:17 TS Medications Medications Home Medications lisinopril 5 mg tablet 5 mg PO DAILY #30 tab 12/04/19 [Rx Confirmed 01/07/20] albuterol sulfate [Ventolin HFA] 2 inh INHALATION TID 01/07/20 [History Confirmed 01/07/20] atorvastatin 40 mg PO DAILY 01/07/20 [History Confirmed 01/07/20] carvedilol 6.25 mg PO DAILY 01/07/20 [History Confirmed 01/07/20] famotidine 20 mg PO DAILY 01/07/20 [History Confirmed 01/07/20] fluticasone propionate 1 spray INTRANASAL DAILY 01/07/20 [History Confirmed 01/07/20] garlic 1,000 mg PO DAILY 01/07/20 [History Confirmed 01/07/20] metformin 500 mg PO BID 01/07/20 [History Confirmed 01/07/20] montelukast 10 mg PO DAILY 01/07/20 [History Confirmed 01/07/20] multivitamin [Multiple Vitamins] 1 tab PO DAILY 01/07/20 [History Confirmed 01/07/20] omega 9-evq-hpi-fish oil [Fish Oil] 1 cap PO DAILY 01/07/20 [History Confirmed 01/07/20] Active Medications Albuterol Sulfate (Albuterol) 2.5 mg INHALATION ONCE PRN PRN Reason: WHEEZING Albuterol/Ipratropium (Duoneb) 3 ml INHALATION Q6H.RESPIRATORY HANNAH Last Admin: 01/16/20 15:17 Dose: 3 ml Documented by: Atorvastatin Calcium (Lipitor) 40 mg PO DAILY HANNAH Last Admin: 01/16/20 08:28 Dose: 40 mg Documented by: Azithromycin (Zithromax) 500 mg PO DAILY HANNAH; Protocol Last Admin: 01/16/20 08:28 Dose: 500 mg Documented by: Budesonide (Pulmicort) 0.25 mg INHALATION BID.RESPIRATORY HANNAH Last Admin: 01/16/20 08:27 Dose: 0.25 mg Documented by: Dextrose (D50w) 25 ml IVP ONCE PRN; Protocol PRN Reason: hypoglycemia protocol Dextrose (D50w) 50 ml IVP PRN PRN; Protocol PRN Reason: hypoglycemia protocol Famotidine (Pepcid Inj) 20 mg IVP ONCE PRN PRN Reason: HEARTBURN Fentanyl (Sublimaze) 50 mcg IVP Q10M PRN PRN Reason: Preop Pain Fentanyl (Sublimaze) 100 mcg IVP ONCE PRN PRN Reason: Per anesthesia for block Fluconazole (Diflucan Tab) 400 mg PO DAILY [facility] Last Admin: 01/16/20 12:14 Dose: 400 mg Documented by: Fluticasone Propionate (Flonase) 1 spray INTRANASAL DAILY [facility] Last Admin: 01/16/20 09:08 Dose: Not Given Documented by: Glucagon (Glucagen) 1 mg IM ONCE PRN; Protocol PRN Reason: Adult Acute Hypoglycemia Prot. Piperacillin Sod/Tazobactam (Sod 3.375 gm/ Sodium Chloride) 50 mls @ 12.5 mls/hr IV Q8H HANNAH; Protocol Last Admin: 01/16/20 17:00 Dose: 12.5 mls/hr Documented by: Dextrose (D5w) 500 mls @ 100 mls/hr IV ONCE PRN; Protocol PRN Reason: Adult Acute Hypoglycemia Prot Vancomycin HCl 1,250 mg/ (Sodium Chloride) 250 mls @ 200 mls/hr IV Q18H [facility]ANNAH; Protocol Last Infusion: 01/16/20 14:27 Dose: Infused Documented by: Imipenem/Cilastatin Sodium 500 (mg/ Sodium Chloride) 100 mls @ 200 mls/hr IV Q8H [facility]ANNA[facility]; Protocol Last Infusion: 01/16/20 14:28 Dose: Infused Documented by: Propofol (Diprivan) 1,000 mg in 100 mls @ 0 mls/hr IV .Q0M [facility]ANNA[facility]; Protocol Last Admin: 01/16/20 17:02 Dose: 20 mcg/kg/min, 11.8 mls/hr Documented by: Levofloxacin/Dextrose (Levaquin-D5w) 750 mg in 150 mls @ 100 mls/hr IV Q48H [facility]ANNA[facility]; Protocol Insulin Aspart (Novolog) 0 unit SUBCUT WM&BEDTIME [facility]; Protocol Last Admin: 01/16/20 13:17 Dose: 2 unit Documented by: Ipratropium [place] (Atrovent Neb) 0.5 mg INHALATION ONCE PRN PRN Reason: WHEEZING Isosorbide Mononitrate (Imdur) 15 mg PO Q12H [facility] Last Admin: 01/16/20 13:18 Dose: 15 mg Documented by: Lidocaine HCl (Lidocaine 2% Viscous) 1 ml TOPICAL PRN PRN PRN Reason: Anesthetic prior to IV start Methylprednisolone Sodium Succinate (Solu-Medrol) 40 mg IVP Q6H [facility] Last Admin: 01/16/20 17:00 Dose: 40 mg Documented by: Metoclopramide HCl (Reglan) 10 mg IVP ONCE PRN PRN Reason: N/V if zofran ineffective Midazolam HCl (Versed) 2 mg IVP Q5M PRN PRN Reason: Preop Anxiety Midazolam HCl (Versed) 5 mg IVP ONCE PRN PRN Reason: Per anesthesia for block Montelukast Sodium (Singulair) 10 mg PO DAILY [facility] Last Admin: 01/16/20 08:28 Dose: 10 mg Documented by: Ondansetron HCl (Zofran) 4 mg IVP Q5M PRN PRN Reason: NAUSEA AND VOMITING Pantoprazole Sodium (Protonix) 40 mg PO DAILY [facility] Last Admin: 01/16/20 08:28 Dose: 40 mg Documented by: Scopolamine (Transderm-Scop) 1 patch TRANSDERMA ONCE PRN PRN Reason: Nausea/ Vomiting Prophylaxis Discharge Plan Discharge Patient Disposition: Xfer Other Condition: Serious Prescriptions: Continued lisinopril 5 mg tablet 5 mg PO DAILY Qty: 30 RF: 6 Multiple Vitamins Tablet 1 tab PO DAILY RF: 0 atorvastatin 40 mg tablet 40 mg PO DAILY RF: 0 garlic 1,000 mg Capsule 1,000 mg PO DAILY RF: 0 famotidine 20 mg Tablet 20 mg PO DAILY RF: 0 montelukast 10 mg tablet 10 mg PO DAILY RF: 0 Ventolin HFA 90 mcg/actuation HFA aerosol inhaler 2 inh inhalation TID RF: 0 fluticasone propionate 50 mcg/actuation [place],Suspension 1 spray INTRANASAL DAILY RF: 0 metformin 500 mg tablet extended release 24 hr 500 mg PO BID RF: 0 Fish Oil 1,000 mg (120 mg-180 mg) Capsule 1 cap PO DAILY RF: 0 Discontinued carvedilol 6.25 mg tablet 6.25 mg PO DAILY RF: 0 Discharge Orders: Discharge Order (Routine); Ordered 01/16/20 Ordered By: Veronica Caba Referrals: Hema Hartman MD [Primary Care Provider] - 4-7 days Transfer Attestations Time Spent in Transfer Care*: critical care time Critical Care Time (min): 20 Specific Discharge Activities: Specific discharge activities: educating and/or supporting family/caregiver, documenting/other paperwork and evaluating patient/reviewing data Status at Transfer: Cognitive status at transfer: other (sedated) , Overall status at transfer: patient has a new baseline Quality Metrics Clinical Quality Measures: During this hospital stay, did patient experience: None Coding Level of Care Code Acute Family Medicine Physician for Chg Fwd Diagnoses Pneumonia J18.9 Pneumonia type: due to unspecified organism Laterality: bilateral Lung location: lower lobe of lung Hemoptysis R04.2 AV heart block I44.30 Bradycardia R00.1 HAZEL (acute kidney injury) N17.9 COPD exacerbation J44.1 CAD (coronary artery disease) I25.10 Coronary Disease-Associated Artery/Lesion type: resighini artery [place] vs. transplanted heart: resighini heart Associated angina: without angina DARIUS (obstructive sleep apnea) G47.33 CKD (chronic kidney disease) stage 2, GFR 60-89 ml/min N18.2 Chronic anemia D64.9 HTN (hypertension) I10 Hypertension type: essential hypertension Non-insulin dependent diabetes mellitus Obesity E66.09; Z68.30 Obesity type: due to excess calories Obesity classification: adult class 1 (BMI 30 - 34.9) Serious obesity comorbidity presence: with serious comorbidity Body mass index: BMI 30.0-30.9
--- NOTE | 2020-01-16 18:15 | PC.NURSE ---
Transfer Attempted to call report to Doug Amezquita, he refused to take report at this time due to not having a nurse for that room. Will call back in 20 minutes.
--- NOTE | 2020-01-16 18:36 | PC.NURSE ---
1540 Intubated Patient intubated at this time by Dr. Hope, assisted by Dr. Caba, myself and respiratory staff. Patient given 30mg Etomidate IVP, 150mg Succ IVP, and 100mcg of Fentanyl IVP. Tube placement verified by auscultation by absent bowel sounds in all four quadrants, and positive lung sounds throughout. OG tube placed and verified by auscultation. CXR done immediately afterwards. See physician and respiratory documentation for further details.
[2020-01-16 18:39] LABS: Glucose Point of Care 165 mg/dL (70-110)
--- NOTE | 2020-01-16 19:14 | PC.NURSE ---
Report called to Audrey Regalado RN, Room 6111-6A, at 1910. No further questions at this time. Nurse request to be notified of TB test findings.
--- NOTE | 2020-01-16 19:34 | PC.NURSE ---
patient being loaded on helicopter gng to [facility] via air evac.
[2020-01-16] MEDS: propofol 1,000 MG/100 ML INJ 14.7 MG IV (19:58)
[2020-01-17 12:31] LABS: Angiotensin Converting Enzyme 18 U/L (9-67)
[2020-01-17 13:01] LABS: Anti-Nuclear Antibody Screen NEGATIVE (NEGATIVE)
[2020-01-17 13:55] LABS: Anti-Double Strand DNA AB <1 IU/mL
[2020-01-18 13:05] LABS: Quantiferon Mitogen 4.79 IU/mL; Quantiferon Plus TB1 0.04 IU/mL; Quantiferon Plus TB2 0.06 IU/mL; Quantiferon TB Gold NEGATIVE (NEGATIVE)
[2020-01-21 22:45] LABS: ANCA Interp Negative (Negative)
== END 2020-01-16 20:37 | disposition short-term general hospital (02) | DRG 208 ==
LOC: ER 19:55 → ICU 20:07 → CSU 01-09 21:35 → ICU 01-15 07:37
PROVIDERS: Emergency Medicine; Thoracic Surgery (Cardiothoracic Vascular Surgery); Admitting Provider Internal Medicine; PCP Family Medicine; Visit Provider Family Medicine
PROC: 0BJ08ZZ Inspection of Tracheobronchial Tree, Via Natural or Artificial Opening Endoscopic (ICD-10-PCS; CPT 31622; principal; 2020-01-15 07:00)
DX: J18.9 Pneumonia, unspecified organism (principal); I44.2 Atrioventricular block, complete; R04.2 Hemoptysis; N17.9 Acute kidney failure, unspecified; J44.1 Chronic obstructive pulmonary disease with (acute) exacerbation; J44.0 Chronic obstructive pulmonary disease with (acute) lower respiratory infection; D62 Acute posthemorrhagic anemia; J98.11 Atelectasis; J90 Pleural effusion, not elsewhere classified; Z11.59 Encounter for screening for other viral diseases; R00.1 Bradycardia, unspecified; N18.2 Chronic kidney disease, stage 2 (mild); G47.33 Obstructive sleep apnea (adult) (pediatric); I12.9 Hypertensive chronic kidney disease with stage 1 through stage 4 chronic kidney disease, or unspecified chronic kidney disease; I25.10 Atherosclerotic heart disease of native coronary artery without angina pectoris; Z79.84 Long term (current) use of oral hypoglycemic drugs; E66.01 Morbid (severe) obesity due to excess calories; Z68.31 Body mass index [BMI] 31.0-31.9, adult; Z95.1 Presence of aortocoronary bypass graft; Z87.891 Personal history of nicotine dependence; R09.02 Hypoxemia; E78.5 Hyperlipidemia, unspecified; Z86.73 Personal history of transient ischemic attack (TIA), and cerebral infarction without residual deficits; E11.22 Type 2 diabetes mellitus with diabetic chronic kidney disease
CPT/HCPCS: 12345; 31500; 31622; 36415; 36416; 36600; 51702; 71045; 71250; 80048; 80053; 80202; 82164; 82803; 82962; 82977; 83036; 83516; 83880; 84443; 84484; 85014; 85018; 85025; 85651; 86038; 86140; 86160; 86225; 86403; 86480; 86850; 86900; 86920; 87040; 87070; 87106; 87205; 87449; 87493; 87641; 93005; 93306; 94002; 94640; 94664; 94799; 96372; 96375; 99283; A4570; J0330; J0456; J0696; J0743; J1644; J1815; J1940; J1956; J2370; J2543; J2704; J2920; J2930; J3010; J3370; J3490; J7030; J7050; J7512; J7626; P9016; Q0144

== ENCOUNTER 2020-03-18 08:50 | Outpatient (CLI) | payer MEDICARE, OTHER, SELFPAY ==
--- NOTE | 2020-03-18 | US_ITS ---
WS: [id number] RIGHT UPPER QUADRANT ULTRASOUND HISTORY: ABNORMAL LFT'S COMPARISON: 07/06/2013 Liver: 14.4 cm in length. Normal size and echogenicity with no intrahepatic dilatation. No mass. Gallbladder: Prior cholecystectomy. CBD: 0.3 cm Pancreas: Completely obscured by bowel gas. Right kidney: 10.0 cm in length. Normal echogenicity with no mass or hydronephrosis. Aorta and IVC: Unremarkable. No ascites. US/US liver [id number] IMPRESSION: 1. Prior cholecystectomy. 2. Nonvisualization of the pancreas. 3. Otherwise negative.
== END 2020-03-18 08:51 | disposition home or self-care (01) ==
LOC: RADOUTREAD 11:25
PROVIDERS: Family Provider Family Medicine; PCP Family Medicine; Visit Provider Family Medicine
DX: R94.5 Abnormal results of liver function studies (principal)
CPT/HCPCS: 76705

== ENCOUNTER → 2020-03-24 08:21 | Outpatient (BNVA) | payer MEDICARE, OTHER, SELFPAY | PROVIDERS: Family Provider Family Medicine; PCP Family Medicine; Visit Provider Internal Medicine | DX: J44.9 Chronic obstructive pulmonary disease, unspecified (principal); Z20.828 Contact with and (suspected) exposure to other viral communicable diseases | CPT/HCPCS: 87635 ==

== ENCOUNTER 2020-03-27 10:45 | Outpatient (CLI) | payer MEDICARE, OTHER, SELFPAY ==
--- NOTE | 2020-03-27 11:30 | PFTS_ITS ---
Date of Study:03/27/20 Date od Dictation: MECHANICS: Forced vital capacity (FVC) is reduced. Forced expiratory volume in one second (FEV1) is reduced. FEV1/FVC is reduced. FLOW VOLUME LOOP: Reduced flow at all lung volumes with significant scooping. LUNG VOLUMES: Total lung capacity (TLC) is normal. Residual volume (RV) is increased. DIFFUSING CAPACITY FOR CARBON MONOXIDE: Severely reduced. INTERPRETATION: The pulmonary function tests are consistent with severe obstruction. Lung volumes are consistent with air trapping. Gas exchange (DLCO) is severely reduced. This has not been corrected for hemoglobin level. MTDD
== END 2020-03-27 10:46 | disposition home or self-care (01) ==
LOC: RT 10:46
PROVIDERS: PCP Family Medicine; Visit Provider Internal Medicine Pulmonary Disease
DX: J44.9 Chronic obstructive pulmonary disease, unspecified (principal)
CPT/HCPCS: 94060; 94726; 94729; J7611

== ENCOUNTER → 2020-04-28 12:47 | Outpatient (BNVA) | payer MEDICARE, OTHER, SELFPAY | PROVIDERS: PCP Family Medicine; Referring Provider Family Medicine; Visit Provider Specialist | DX: R20.0 Anesthesia of skin (principal); R20.2 Paresthesia of skin; G62.9 Polyneuropathy, unspecified | CPT/HCPCS: 95909 ==

== ENCOUNTER 2020-05-15 12:40 | Outpatient (RCR) | payer MEDICARE, OTHER, SELFPAY | END 2020-05-24 23:59 | disposition home or self-care (01) | LOC: PULRHB 12:40 | PROVIDERS: PCP Family Medicine; Visit Provider Internal Medicine Pulmonary Disease | DX: J44.9 Chronic obstructive pulmonary disease, unspecified (principal) | CPT/HCPCS: 94618; G0424 ==

== ENCOUNTER 2020-05-25 06:00 | Outpatient (RCR) | payer MEDICARE, OTHER, SELFPAY | END 2020-06-23 23:59 | disposition home or self-care (01) | LOC: PULRHB 06:00 | PROVIDERS: PCP Family Medicine; Visit Provider Internal Medicine Pulmonary Disease | DX: J44.9 Chronic obstructive pulmonary disease, unspecified (principal) | CPT/HCPCS: G0424 ==

== ENCOUNTER 2020-06-24 06:00 | Outpatient (RCR) | payer MEDICARE, OTHER, SELFPAY | END 2020-07-24 23:59 | disposition home or self-care (01) | LOC: PULRHB 06:00 | PROVIDERS: PCP Family Medicine; Visit Provider Internal Medicine Pulmonary Disease | DX: J44.9 Chronic obstructive pulmonary disease, unspecified (principal) | CPT/HCPCS: G0424 ==

== ENCOUNTER 2020-07-25 06:00 | Outpatient (RCR) | payer MEDICARE, OTHER, SELFPAY | END 2020-08-24 23:59 | disposition home or self-care (01) | LOC: PULRHB 06:00 | PROVIDERS: PCP Family Medicine; Visit Provider Internal Medicine Pulmonary Disease | DX: J44.9 Chronic obstructive pulmonary disease, unspecified (principal) | CPT/HCPCS: G0424 ==

== ENCOUNTER 2020-08-06 07:43 | Outpatient (CLI) | payer MEDICARE, OTHER, SELFPAY ==
--- NOTE | 2020-08-06 07:52 | USCV_ITS ---
MatiasPatience Age: 75 Gender: M : 1945 Exam Date: 08/06/2020 07:43 Ordering Phys: Hema Hartman MD Technologist: Exam Location: [facility] [place]_ Indication: claudication RIGHT LEFT Brachial 156.00 mmHg Brachial 143.00 mmHg Pressure (mmHg) Waveform Pressure (mmHg) Waveform [facility]OL[facility] 71.00 30.00 DPA 79.00 0.19 Ankle/Brachial Index 0.51 FINDINGS Resting ADAL of 0.19 on the right side and 0.5 on the left side CONCLUSIONS Markedly diminished resting ADAL of the right side, suggestive multisegmental disease Abnormal resting ADAL on the left side, suggestive of moderately severe peripheral artery disease No similar previous studies are available for comparison Dr Debbie Clark MD [facility] (Electronically Signed) Final Date: 06 August 2020 10:05 S
== END 2020-08-06 07:44 | disposition home or self-care (01) ==
PROVIDERS: PCP Family Medicine; Visit Provider Family Medicine
DX: I73.9 Peripheral vascular disease, unspecified (principal)
CPT/HCPCS: 93922

== ENCOUNTER 2020-09-04 13:14 | Outpatient (CLI) | payer MEDICARE, OTHER, SELFPAY | END 2020-09-04 13:15 | disposition home or self-care (01) | LOC: WOUND 13:16 | PROVIDERS: PCP Family Medicine; Visit Provider Nurse Practitioner Family | DX: I73.9 Peripheral vascular disease, unspecified (principal); L97.518 Non-pressure chronic ulcer of other part of right foot with other specified severity | CPT/HCPCS: G0463; L3260 ==

== ENCOUNTER 2020-09-08 09:50 | Outpatient (CLI) | payer MEDICARE, OTHER, SELFPAY ==
--- NOTE | 2020-09-08 10:10 | CT_ITS ---
WS: [id number] CTA ABDOMINAL AORTA WITH RUNOFF TECHNIQUE: Contrast enhanced CTA of the abdominal aorta with bilateral lower extremity runoff. Multip lanar reformatted images were obtained. MIP reformats were also reviewed. CLINICAL INFORMATION: PERIPHERAL ARTERY DISEASE, ARTERIAL ULCER RIGHT TOE COMPARISON: None. DLP: 1870.[address] scans at [facility] use at least one of these dose optimization techniques: automat ed exposure control; mA and/or kV adjustment per patient size (includes targeted exams where dose is matched to clinical indication); or iterative reconstruction. FINDINGS: Moderate atheromatous disease abdominal aorta. No abdominal aortic aneurysm. Moderate to se son stenosis at the celiac origin which remains patent. Mild stenosis at the SMA origin which is pat ent. Moderate calcified atheromatous disease both proximal renal arteries. Moderate left and mild rig ht renal artery stenosis. Normal renal parenchymal enhancement. Inferior mesenteric artery is patent. Lung bases are well aerated. Tiny left pleural effusion. Small esophageal hiatal hernia. Fatty atrop hy of the pancreas. Adrenal glands are normal. Normal renal parenchymal enhancement. No hydronephrosi s. No high-grade small or large bowel obstruction. Tiny fat-containing hernia. No free fluid in the pelv is. Osteopenia. Postoperative changes left hip. RIGHT: Moderate calcified atheromatous disease right common iliac artery. Mild stenosis of the right common iliac artery origin. Right common iliac artery is patent. Moderate to severe stenosis right ex ternal iliac artery origin. Right internal iliac artery is occluded proximally. Right common femoral artery is patent. High-grade stenosis right proximal superficial femoral artery is small but patent. Densely calcified superficial femoral artery with multifocal moderate to severe stenosis. This is occ luded in the mid to distal thigh and proximal to the adductor hiatus. Popliteal artery is occluded at the origin. Severe stenosis proximal popliteal artery. Popliteal artery is patent in the popliteal f ossae with high-grade segmental narrowing. This is occluded just above the knee. This reconstitutes p roximal to the trifurcation with dominant two-vessel runoff to the ankle. Heavily calcified posterior tibial artery with poor flow. LEFT: Left common iliac artery is patent. External and internal iliac arteries are patent. Common fem oral artery is patent. Severe stenosis of the superficial femoral artery origin. Tiny superficial fem oral artery with multifocal narrowing and occlusion. This is worse in the mid and distal segment. SFA is occluded distally. Popliteal artery is essentially occluded at the adductor hiatus. Heavily calci fied popliteal artery with high-grade stenosis and poor flow. This reconstitutes above the knee with dense calcification at the trifurcation. Heavily calcified proximal calf arteries. Poor three-vessel runoff to the ankle with dominant anterior tibial artery. CT/CT angio abd aorta runof [id number] IMPRESSION: 1. Heavily calcified aorta without significant aneurysm. 2. RIGHT: Severe stenosis in the proximal right external iliac artery with mul tifocal segmental stenosis. Multifocal high-grade stenosis and segmental occlus ion involving the superficial femoral artery worse in the mid and distal segmen ts. Popliteal artery is occluded proximally. Multifocal popliteal artery stenos is and occlusion with reconstitution proximal to the trifurcation. Dominant two -vessel runoff to the right ankle. 3. LEFT: High-grade multifocal stenosis involving the superficial femoral carmel ry and popliteal arteries with multifocal occlusion and poor flow. Densely calc ified trifurcation with poor runoff to the ankle. Dominant anterior tibial carmel ry. 4. Severe stenosis at the celiac origin which remains patent. Mild stenosis at the SMA origin. 5. Moderate left renal artery origin stenosis. 6. Additional nonvascular findings described above.
[2020-09-08] MEDS: iodixanol 320 mg/mL 100mL Btl IV (11:39)
== END 2020-09-08 09:51 | disposition home or self-care (01) ==
LOC: RADWPI 09:56
PROVIDERS: PCP Family Medicine; Visit Provider Family Medicine
DX: I73.9 Peripheral vascular disease, unspecified (principal); L97.519 Non-pressure chronic ulcer of other part of right foot with unspecified severity; I70.1 Atherosclerosis of renal artery; I70.8 Atherosclerosis of other arteries; I70.0 Atherosclerosis of aorta
CPT/HCPCS: 75635; Q9967

== ENCOUNTER → 2020-09-12 12:13 | Outpatient (BNVA) | payer MEDICARE, OTHER, SELFPAY | PROVIDERS: PCP Family Medicine; Visit Provider Specialist | DX: G62.9 Polyneuropathy, unspecified (principal); R20.2 Paresthesia of skin; Z86.39 Personal history of other endocrine, nutritional and metabolic disease; Z87.891 Personal history of nicotine dependence | CPT/HCPCS: 82607; 82746; 84260; 85651; 86140; 86431; 99204 ==

== ENCOUNTER 2020-09-12 13:52 | Outpatient (CLI) | payer MEDICARE, OTHER, SELFPAY ==
[2020-09-12 15:49] LABS: C Reactive Protein 7.5 mg/L (0.0-4.9)
[2020-09-12 16:23] LABS: Vitamin B12 1092 pg/mL (232-1245)
[2020-09-12 16:57] LABS: Erythrocyte Sedimentation Rate 51 mm/hr (0-10)
[2020-09-12 21:54] LABS: Folate Level 19.7 ng/mL (4.5-32.2)
== END 2020-09-12 13:53 | disposition home or self-care (01) ==
LOC: LAB 13:57
PROVIDERS: PCP Family Medicine; Visit Provider Specialist
DX: Z86.39 Personal history of other endocrine, nutritional and metabolic disease (principal); G62.9 Polyneuropathy, unspecified; R20.2 Paresthesia of skin
CPT/HCPCS: 82607; 82746; 84260; 85651; 86140; 86431

== ENCOUNTER 2020-09-18 10:38 | Outpatient (CLI) | payer MEDICARE, OTHER, SELFPAY | END 2020-09-18 10:39 | disposition home or self-care (01) | LOC: WOUND 10:40 | PROVIDERS: PCP Family Medicine; Visit Provider Nurse Practitioner Family | DX: E11.621 Type 2 diabetes mellitus with foot ulcer (principal); L97.512 Non-pressure chronic ulcer of other part of right foot with fat layer exposed | CPT/HCPCS: 99214 ==

== ENCOUNTER 2020-09-25 10:13 | Outpatient (CLI) | payer MEDICARE, OTHER, SELFPAY | END 2020-09-25 10:14 | disposition home or self-care (01) | LOC: WOUND 10:13 | PROVIDERS: PCP Family Medicine; Visit Provider Nurse Practitioner Family | DX: E11.621 Type 2 diabetes mellitus with foot ulcer (principal); Z20.822 Contact with and (suspected) exposure to COVID-19; L97.512 Non-pressure chronic ulcer of other part of right foot with fat layer exposed; Z11.52 Encounter for screening for COVID-19; I99.8 Other disorder of circulatory system | CPT/HCPCS: 73630; 87635; G0463 ==

== ENCOUNTER 2020-09-25 11:21 | Outpatient (CLI) | payer MEDICARE, OTHER, SELFPAY ==
--- NOTE | 2020-09-25 | XR_ITS ---
WS: [id number] Right foot, 3 views, 09/25/2020 Clinical Data: PAIN REDNESS NON HEALING ULCER Comparison: None. Findings: No fractures or dislocations are seen. No bone destruction or erosion is noted. The joint spaces and soft tissues are normal. There is an Achilles spur and a small plantar spur. XR/XR foot RT min 3V* [id number] Impression: Negative right foot.
== END 2020-09-25 11:22 | disposition home or self-care (01) ==
PROVIDERS: PCP Family Medicine; Visit Provider Nurse Practitioner Family
DX: M79.671 Pain in right foot (principal); L53.9 Erythematous condition, unspecified
CPT/HCPCS: 73630

== ENCOUNTER 2020-10-01 06:01 | Day surgery (SDC) | payer MEDICARE, OTHER, SELFPAY ==
[2020-09-25 12:48] LABS: Basophils # 0.1 10^3/uL (0.0-0.1); Basophils % 0.6 %; Eosinophils # 0.2 10^3/uL (0.0-0.8); Eosinophils % 2.1 %; Hemoglobin 13.2 g/dL (11.7-16.6); Lymphocytes # 2.1 10^3/uL (0.8-4.8); Lymphocytes % 19.4 %; Mean Corpuscular HGB Conc 32.2 g/dL (30.0-36.0); Mean Corpuscular Hemoglobin 30.8 pg (28.0-34.0); Mean Corpuscular Volume 95.6 fL (80-94); Mean Platelet Volume 9.6 fL (7.4-10.4); Monocytes # 0.8 10^3/uL (0.2-0.9); Monocytes % 7.4 %; Neutrophils # 7.59 10^3/uL (1.8-7.7); Neutrophils % 69.9 %; Nucleated Red Blood Cells % 0 %; Platelet Count 252 10^3/cmm (130-400); Red Blood Count 4.29 10^6/uL (4.1-5.3); Red Cell Distribution Width 13.7 % (12.1-15.1); White Blood Count 10.9 10^3/uL (4.0-10.0)
[2020-09-25 13:06] LABS: INR 0.99 (0.83-1.21); Prothrombin Time (Patient) 13.4 Seconds (12.0-15.1)
[2020-09-25 13:13] LABS: Anion Gap 13.4 (5-19); Blood Urea Nitrogen 24 mg/dL (8-23); Calcium 9.3 mg/dL (8.5-10.5); Carbon Dioxide 26 mmol/L (22-29); Chloride 100 mmol/L (98-107); Glucose 91 mg/dL (65-115); Osmolality Calculated 284 mOsm/kg (285-295); Potassium 4.4 mmol/L (3.5-5.1); Sodium 135 mmol/L (136-145)
[2020-09-30 08:27] VITALS: BMI 29.2
[2020-10-01] VITALS (32 sets, daily range): BP systolic 128–170; BP diastolic 50–74; PULSE 70–84; RESP 7–28; TEMP 36.6–37.1; O2SAT 88–98
[2020-10-01] MEDS: diphenhydrAMINE 50 mg Capsule PO (06:49)
--- NOTE | 2020-10-01 07:00 | XACV_ITS ---
Wt: 93 kg BSA: 2.16 m2 Any Known Allergies: No known allergies Gender: Male : 1945 Exam Type: Invasive Peripheral Vascular Procedure(s): Procedure Description: Peripheral Cath Diagnostic Procedure Procedure Description: Iliac arterial aortic angiography Procedure Description: Lower extremities' angiography Procedure Description: Peripheral vascular Intervention Procedure Description: PV Balloon Procedure Description: PV Atherectomy Exam Priority: Routine Lower Extremity Diagnostic Findings Peripheral Procedure Description: severe lifestyle limiting claudication of both legs more on the left leg . Dukes grade II, category 4:David stage III. Procedure #1 Abdominal aorta : Luminal irregularities #2 Left and right renal artery has luminal irregularities #3 Left common iliac artery has luminal irregularity #4 Right common iliac artery has eccentric moderate to severe stenosis #5 Left internal iliac and right internal iliac has luminal irregularities #7 Right and left external iliac artery has luminal irregularity #8 Left and right common femoral artery has luminal irregularity #9 Left and right profunda femoral artery has luminal irregularity #10 Right and left SFA are chronically occluded in proximal to distal segment, it reconstitute at the popliteal vessel #11 Left and right popliteal arteries has luminal irregularity #12 Right tibioperoneal trunk has moderate stenosis Right and left two-vessel runoff was noted Right anterior tibial vessel is chronically occluded in the proximal segment and we continued in the distal, right posterior tibial has multiple moderate stenosis but two-vessel runoff was noted In the left tibioperoneal trunk has luminal irregularity Left side two-vessel runoff was noted. . Lower Extremity Interventional Findings Through left common femoral approach balloon angioplasty of right common iliac vessel was performed since wire was crossing with difficulty. Balloon angioplasty of common right iliac artery remains successful. Using seeker and Glidewire I was able to cross chronically occluded right SFA into the popliteal vessel. Viper wire was exchanged through the seeker. Using 2.0 bur CSI atherectomy of the proximal to distal SFA was performed. CSI atherectomy of the tibioperoneal trunk was also performed. Both SFA and tibioperoneal trunk were then treated with balloon angioplasty using different caliber balloon, Please see the inventory. Excellent angiographic result with good flow was noted from common iliac to tibioperoneal trunk. Good two-vessel runoff was noted below the right knee. . Recommendations 1-Return to inpatient for close monitoring and routine cath care 2-Risk factor modification for secondary prevention 3-Statin and aspirin 81 mg life--long, if tolerated 4-Continue Plavix 75mg p.o. daily for at least three minutes. 5-Continue medical management, stage angioplasty and atherectomy of the left SFA 6-Follow up with Dr. Florez in four weeks and your primary care in 10 days. Hemodynamic Data Phase:Rest AO : 149.0 / 44.0 ( 76.0 ) @ 2:42:00 AM 188.0 / 54.0 ( 104.0 ) @ 3:59:00 AM Access Site Site: Left Femoral artery Sheath Size: 6 Fr Hemost... Method: Suture Hemost... Success: Successful Procedure Details Findings Procedure Consent Obtained. Pre-Procedure Time Out. Identified patient by full name and date of as verbalized by the patient/guarantor. Does the consent match the physician's order: Yes. Accurate & Complete Informed Consent: Yes. Inpatient/Outpatient History & Physical on Chart: Yes. If H&P is completed, is and addenduem needed: No; If yes, is the addendum complete: N/A. Visualize and Verify Site with Patient/Guarantor: N/A. Relevant Radiology Images available: N/A. Pre-op teaching completed and patient verbalized understanding. The risks, benefits, and alternatives of sedation and/or procedure were discussed by physician. The patient agrees to continue. Procedure started. Correct patient, site and procedure confirmed by cath team. Current diagnosis: PVD. PERRLA. Strong, equal hand ivory polisher bilaterally. Lungs clear x 5 lobes. IV Site on Arrival: 20 gauge in the left anticubital. IV Fluids: 0.9% NaCl at KVO. 0 mL infused prior to laboratory chemical assistant. Pre Procedural Pulses: bilateral radial was 3+. Pre Procedural Pulses: right dorsalis pedis was Doppled. Pre Procedural Pulses: left dorsalis pedis was 1+. Pre Procedural Pulses: right posterior tibial was Absent. Pre Procedural Pulses: left posterior tibial was Doppled. Oxygen started at 2liters/min via nasal canula. bilateral groins was prepped with chloroprep then draped in the usual sterile fashion. Physician notified. Physician notified. Physician arrived. Equipment: Peripheral. Cardiac Cath Pack. ACIST Manifold Kit Model BT 2000. Heparinized Saline (2 units/mL), 1000 mL bag. Inventory is JJ 6F 11cm Marlyn Plus Sheath. Physician scrubbed in. Time out performed with cath team. Lidocaine 1% infiltrated to the left groin. Arterial access obtained with micropuncture set. A 5FrFr UF catheter in over wire. Abdominal aortogram performed in AP @ 10 mL/sec for a total of 30 mL. Glidewire inserted. Catheter removed over the glide wire. Inventory is CK 6 FR FLEXOR SHEATH 45CM. Short 6 fr sheath exchanged for 45cm 6 fr Flexor sheath. Right leg runoff 10 ml for total of 30 ml. SEEKER support catheter inserted. SEEKER catheter out. Inflation number : 1 A AB ARMADA 35 OTW [id number] was prepped and advanced across the Common Iliac, Right , then inflated to 6 ROASLIA for 0:15 seconds. Inflation number: 2 The AB ARMADA 35 OTW [id number] was reinflated across the Common Iliac, Right, to 8 ROSALIA for 0:10 seconds. Side port of sheath attached to Normal Saline flush at KVO to maintain patency. Balloon out over wire. SEEKER support catheter inserted. SEEKER pulled back. SEEKER support catheter inserted to advance the wire below the knee. SEEKER catheter out. Called Anesthesia to come help with sedation. They state no one is available at this time. Inflation number : 1 A AB ARMADA 35 OTW [id number] was prepped and advanced across the Mid Superficial Femoral, Right , then inflated to 12 ROSALIA for 1:01 seconds. Inflation number: 2 The AB ARMADA 35 OTW [id number] was reinflated across the Mid Superficial Femoral, Right, to 12 ROSALIA for 0:24 seconds. Inflation number: 1 The AB ARMADA 35 OTW [id number] was reinflated across the Proximal Superficial Femoral, Right, to 12 ROSALIA for 0:35 seconds. Balloon out over wire. SEEKER support catheter inserted. Glidewire out. Hand injection. VIPER wire inserted through SEEKER catheter. SEEKER catheter removed. Diamondback 2.00mm atherectomy device inserted over VIPER wire. Atherectomy device has technical problem. Device removed. Called to see if Anesthesia is available now. No one answered. A 16Fr reardon catheter was inserted without resistance maintaining sterile technique. Bag to gravity with clear urine returning. A fresh Diamondback 2.00mm atherectomy device inserted over VIPER wire. Orbital atherectomy performed in Right SFA. Orbital atherectomy performed in Right SFA. Orbital atherectomy performed in Right SFA. Orbital atherectomy performed in Right SFA. Orbital atherectomy performed in Right SFA. Atherectomy device removed. SEEKER support catheter removed. VIPER wire removed. Glidewire inserted. Glidewire in, Seeker support catheter out. Inflation number : 3 A BARD 5FR Lutinox [id number] drug coated balloon was prepped and advanced across the Mid Superficial Femoral, Right , then inflated to 6 ROSALIA for 2:03 seconds. Inflation number: 2 The BARD 5FR Lutinox [id number] drug coated balloon was reinflated across the Proximal Superficial Femoral, Right, to 6 ROSALIA for 2:02 seconds. Inflation number: 3 The BARD 5FR Lutinox [id number] drug coated balloon was reinflated across the Proximal Superficial Femoral, Right, to 6 ROSALIA for 1:04 seconds. Balloon out. Right Leg runoff 10 ml for total of 30 ml. SEEKER support catheter inserted over glidewire. Glidewire out. Hand injection. Circulating nurse called anesthesia again. They state they do not have anyone available at this time. They will reevaluate in an hour and let us know. VIPER wire inserted. SEEKER out. Hand injection. Diamondback 1.50 atherectomy device inserted over VIPER wire. Orbital atherectomy performed in Right Popliteal. Orbital atherectomy performed in Right Popliteal. Atherectomy device removed. SEEKER inserted. VIPER wire out. Glidewire inserted. Inflation number : 1 A AB ARMADA 35 OTW [id number] was prepped and advanced across the Tibial Peroneal Trunk, Right , then inflated to 8 ROSALIA for 1:05 seconds. Inflation number: 2 The AB ARMADA 35 OTW [id number] was reinflated across the Tibial Peroneal Trunk, Right, to 10 ROSALIA for 1:01 seconds. Balloon out. Inflation number : 4 A AB ARMADA 35 OTW [id number] was prepped and advanced across the Mid Superficial Femoral, Right , then inflated to 8 ROSALIA for 1:01 seconds. Inflation number: 5 The AB ARMADA 35 OTW [id number] was reinflated across the Mid Superficial Femoral, Right, to 8 ROSALIA for 1:02 seconds. Balloon out over wire. Results checked with right leg runoff. Long 45 cm 6 fr Flexor sheath exchanged for short 6 fr sheath. Left leg runoff through the sheath 10 ml for total of 30 ml. Physician scrubbed out. A Suture was successful obtaining hemostatsis at the Left Femoral artery insertion site. Sheath(s) sutured into position with 2-0 silk and sterile 4x4's and Op-site applied over the site. No oozing or signs and symptoms of hematoma noted. Arterial sheath flushed and connected to tranducer and pressure bag with heparinized saline. Post Procedure: Pulses reassessed and unchanged. PERRLA. Strong, equal hand ivory polisher bilaterally. No VTE prophylaxis required. Medication's Wasted: Lidocaine 1% = 5 mL. Medication's Wasted: Nitro = 49.2 mg. Medication's Wasted: Other = fentanyl 50 mcg. Total IV fluids: 170 mL. Contrast type used: Visipaque 320 mgI/mL, 500 mL bottle. Complications: none. Post-op diagnosis: severe PVD. Estimated blood loss: 5mL-10mL. Procedure completed. Patient transferred by bed to 1st floor. Vital chart was stopped. Procedure Medications Start: 7:33 AM Stop: 7:33 AM Medication: Fentanyl Amount: 50 mcg Route: I.V. Start: 7:35 AM Stop: 7:35 AM Medication: Versed Amount: 1 mg Route: I.V. Start: 7:42 AM Stop: 7:42 AM Medication: Versed Amount: 1 mg Route: I.V. Start: 7:42 AM Stop: 7:42 AM Medication: Fentanyl Amount: 50 mcg Route: I.V. Start: 7:54 AM Stop: 7:54 AM Medication: Versed Amount: 1 mg Route: I.V. Start: 7:54 AM Stop: 7:54 AM Medication: Fentanyl Amount: 25 mcg Route: I.V. Start: 8:05 AM Stop: 8:05 AM Medication: Fentanyl Amount: 25 mcg Route: I.V. Start: 8:21 AM Stop: 8:21 AM Medication: Versed Amount: 1 mg Route: I.V. Start: 8:21 AM Stop: 8:21 AM Medication: Fentanyl Amount: 25 mcg Route: I.V. Start: 8:28 AM Stop: 8:28 AM Medication: Heparin Amount: 5000 units Route: I.V. Start: 8:36 AM Stop: 8:36 AM Medication: Versed Amount: 1 mg Route: I.V. Start: 8:36 AM Stop: 8:36 AM Medication: Fentanyl Amount: 25 mcg Route: I.V. Start: 8:38 AM Stop: 8:38 AM Medication: Heparin Amount: 2000 units Route: I.V. Start: 9:15 AM Stop: 9:15 AM Medication: Nitrogylcerin Amount: 400 mcg Route: I.A. Start: 8:41 AM Stop: 8:41 AM Medication: Versed Amount: 1 mg Route: I.V. Start: 9:25 AM Stop: 9:25 AM Medication: Morphine Amount: 2 mg Route: I.V. Start: 9:29 AM Stop: 9:29 AM Medication: Morphine Amount: 2 mg Route: I.V. Start: 9:29 AM Stop: 9:29 AM Medication: Heparin Amount: 2000 units Route: I.V. Start: 9:40 AM Stop: 9:40 AM Medication: Fentanyl Amount: 50 mcg Route: I.V. Start: 9:40 AM Stop: 9:40 AM Medication: Nitrogylcerin Amount: 400 mcg Route: I.A. I, the attending physician, have reviewed and verified all procedure medications. Yes, all medications given per verbal order History/Risk Factors Hypertension: Yes Dyslipidemia: No Peripheral Arterial Disease (PAD): Yes Obesity: No Renal Disease: No Tobacco Use: Former Prior Interventions PCI: No CABG: Yes Valve Surgery: No Report Signatures Finalized by Jose Raul Florez MD on 10/12/2020 07:06 PM
--- NOTE | 2020-10-01 07:25 | PM.HP ---
Providers/Chief Complaint Primary Care Provider: Hema Hartman MD Chief Complaint: right Peripheral Diagnostic 70941 G62.9 History of Present Illness 75-year-old male past medical history significant for coronary artery disease hypertension hyperlipidemia and nonhealing right foot toe ulcer with critical limb ischemia despite of medical management underwent CTA which showed severe proximal right external iliac and multifocal segmental stenosis high-grade occlusion involving the SFA worse in the middle and distal segment he is here for further advice. Patient continues to have severe claudication and sometimes pain at rest since he has nonhealing ulcer which is getting worse and evidence of critical limb ischemia despite of medical management we will proceed with peripheral angiogram. Patient has been explained all risk benefit and alternative for the procedure. Patient has been explained all risk benefit and mortality and drug-coated balloon use along with FDA warning he would like to proceed with it. Review of Systems Eyes: Denies: photophobia Medications/Allergies Home Medications Medication Instructions Recorded Confirmed Last Taken Type atorvastatin 40 mg PO DAILY 01/07/20 09/30/20 09/30/20 20:00 History famotidine 20 mg PO DAILY 01/07/20 09/30/20 09/30/20 08:30 History fluticasone propionate 1 spray INTRANASAL DAILY 01/07/20 09/30/20 01/07/20 History garlic 1,000 mg PO DAILY 01/07/20 09/30/20 09/30/20 08:30 History metformin 500 mg PO BID 01/07/20 09/30/20 09/30/20 20:00 History montelukast 10 mg PO DAILY 01/07/20 09/30/20 09/30/20 08:30 History multivitamin [Multiple Vitamins] 1 tab PO DAILY 01/07/20 09/30/20 09/30/20 08:30 History omega 5-ufb-sbk-fish oil [Fish Oil] 1 cap PO DAILY 01/07/20 09/30/20 09/30/20 08:30 History albuterol sulfate 90 mcg/actuation 1 inh INHALATION DAILY gm 03/03/20 09/30/20 09/30/20 08:30 History aerosol inhaler finasteride 5 mg tablet 5 mg PO DAILY tab 03/07/20 09/30/20 09/30/20 08:30 History carvedilol 3.125 mg tablet 3.125 mg PO BID #180 tab 03/27/20 09/30/20 09/30/20 20:00 Rx clopidogrel 75 mg tablet 75 mg PO DAILY #90 tab 05/12/20 09/30/20 09/30/20 08:30 Rx lisinopril 5 mg tablet 5 mg PO DAILY #90 tab 05/19/20 09/30/20 09/30/20 08:30 Rx fluticasone fur. 100 mcg-umeclid 1 inh INHALATION DAILY #60 each 07/28/20 09/30/20 09/30/20 08:30 Rx 62.5 mcg-vilant 25 mcg inhalat.powder Allergies Allergy/AdvReac Type Severity Reaction Status Date / Time No Known Allergies Allergy Verified 09/12/20 13:01 PFSH Acute PFSH: Medical History (Updated 09/16/20 @ 21:34 by Jose Raul Florez MD) CAD (coronary artery disease) -follows up with Dr. Florez -s/p CABG Chronic anemia -baseline Hg around 10 Chronic kidney disease CKD (chronic kidney disease) stage 2, GFR 60-89 ml/min -baseline Cr wnl Congestive heart failure COPD (chronic obstructive pulmonary disease) Fracture, femoral HTN (hypertension) Non-insulin dependent diabetes mellitus -A1c-5.9 -accuchecks, ISS, hypoglycemia precautions -hold metformin -anticipate hyperglycemia with steroid use and acute illness -consistent carb diet as tolerated Obesity -BMI-31 kg/m2 DARIUS (obstructive sleep apnea) -CPAP qhs Surgical History Hx of CABG Hx of cholecystectomy Family History Mother CAD (coronary artery disease) Social History Smoking and tobacco status: former smoker Quit status (tobacco): has quit using tobacco Year quit tobacco: 2015 - 1ppd x 60 Second hand smoke exposure: No Smoking risk assessment/counseling performed?: Yes Alcohol intake: never Lives independently: Yes Household members: spouse Marital status: Current occupational status: retired History of recent travel: No Current gender identity: Male Vitals/I&O/Wt Last Vital Signs Temp 98.3 F 10/01/20 06:34 Pulse 71 03/10/21 06:34 Resp 17 10/01/20 06:34 BP 161/55 10/01/20 06:34 Pulse Ox 96 10/01/20 06:34 Weight last 48 hrs Weight 204 lb Physical Exam Narrative: EXAM NARRATIVE: GENERAL: Patient is alert, awake and oriented x3. NECK: No jugular vein distension. HEENT: No cyanosis. No icterus. No pallor. HEART: Regular S1 and S2. No murmur, rub or gallop. LUNGS: Clear to auscultate bilaterally. ABDOMEN: Soft, nontender and nondistended. Positive bowel sounds. No guarding, rebound or tenderness. CENTRAL NERVOUS SYSTEM: Grossly nonfocal. EXTREMITIES: Lower extremities without edema bilaterally. Pulses not palpable in the lower extremities, both dorsalis pedis and posterior tibial. Right fifth toe nonhealing ulcer Data : 09/25/20 12:24 09/25/20 12:24 A&P Assessment and plan (1) Critical lower limb ischemia: Due to right external iliac, SFA, popliteal occlusion and nonhealing ulcer suggestive of critical limb ischemia we will proceed with peripheral angiogram and percutaneous intervention if indicated Status: Acute (2) HTN (hypertension): Stable Status: Acute Qualifiers: Hypertension type: essential hypertension Qualified Code(s): I10 - Essential (primary) hypertension (3) Hx of CABG: Stable. Status: Acute (4) COPD (chronic obstructive pulmonary disease): Stable Status: Acute Qualifiers: COPD type: unspecified COPD Qualified Code(s): J44.9 - Chronic obstructive pulmonary disease, unspecified Attestations Medical Necessity Statement*: I am not expecting his stay to cross more than 1 midnight Coding Level of Care Code Established Pt Acute Checker Product Design for g Fwd Patient Type Established History Detailed Exam Detailed Medical Decision Making Moderate Complexity Diagnoses Critical lower limb ischemia I99.8 HTN (hypertension) I10 Hypertension type: essential hypertension Hx of CABG Z95.1 COPD (chronic obstructive pulmonary disease) J44.9 COPD type: unspecified COPD
--- NOTE | 2020-10-01 07:30 | W.PM.OPSUD ---
Surgery/Procedure H&P Update DATE OF PROCEDURE: October 01, 2020 DATE H&P PERFORMED: 10/01/20 H&P UPDATE INFORMATION: I have examined patient prior to procedure, No changes to prior documentation and Changes to prior documentation as noted here PREOP DIAGNOSIS: Critical limb ischemia PLANNED PROCEDURE: Operation Date: 10/01/20 07:00 Proposed Procedures p right Peripheral Diagnostic 29708 G62.9(Right) - Jose Raul Florez MD PATIENT REASSESSED PRIOR TO SEDATION, WITH NO CHANGE NOTED: Yes PHYSICAL EXAM: alert, oriented x 3, clear to auscultation bilaterally and regular rate & rhythm AIRWAY EVAL/ANESTHESIA PLAN: ASA II, Risks, benefits & alternatives of sedation and/or procedure discussed and Patient agrees to continue as planned
[2020-10-01] MEDS: finasteride 5 mg Tablet PO (10:29)
[2020-10-01] MEDS: clopidogrel 75 mg Tablet PO (10:30)
[2020-10-01] MEDS: atorvastatin 40 mg Tablet PO (10:30)
[2020-10-01] MEDS: lisinopril 5 mg Tablet PO (10:30)
[2020-10-01] MEDS: montelukast sodium 10 mg Tablet PO (10:30)
[2020-10-01] MEDS: omega-3 fatty acids 1,000 mg Capsule 1000 MG PO (10:30)
[2020-10-01] MEDS: carvedilol 3.125 mg Tablet PO ×2 (10:37→20:59)
--- NOTE | 2020-10-01 12:00 | PC.NURSE ---
Patient's left groin dressing noted to be saturated at 1110. While changing the dressing the sheath became dislodged and bleeding from puncture increased. Call for second nurse to assist in conntrolloing the bleeding through manual pressure. Bleeding subsided small bruise and hematoma formed just dital to puncture site. After 25 minutes of manual pressure a n ew dressing was applied to the site and instructed patient to continue to keep the left leg straint and not to bend atthe groin.
[2020-10-01] MEDS: albuterol 8 gm MDI 1 PUFF INHALATION ×2 (12:47→23:25)
[2020-10-01 13:22] LABS: Partial Thromboplastin Time 156.1 SECONDS (23.9-36.7)
[2020-10-01] MEDS: ALPRAZolam 0.25 mg Tablet PO (20:59)
[2020-10-02] VITALS (7 sets, daily range): BP systolic 108–116; BP diastolic 45–60; PULSE 70–83; RESP 16–22; TEMP 36.4–36.8; O2SAT 93–97
[2020-10-02 04:45] LABS: Basophils # 0.1 10^3/uL (0.0-0.1); Basophils % 0.4 %; Eosinophils # 0.2 10^3/uL (0.0-0.8); Eosinophils % 1.3 %; Hematocrit 33.4 % (42.0-52.0); Hemoglobin 10.6 g/dL (11.7-16.6); Lymphocytes # 2.3 10^3/uL (0.8-4.8); Lymphocytes % 18.4 %; Mean Corpuscular HGB Conc 31.7 g/dL (30.0-36.0); Mean Corpuscular Hemoglobin 30.3 pg (28.0-34.0); Mean Corpuscular Volume 95.4 fL (80-94); Mean Platelet Volume 9.3 fL (7.4-10.4); Monocytes # 1.1 10^3/uL (0.2-0.9); Monocytes % 9.2 %; Neutrophils # 8.57 10^3/uL (1.8-7.7); Neutrophils % 70.3 %; Nucleated Red Blood Cells % 0 %; Platelet Count 180 10^3/cmm (130-400); White Blood Count 12.2 10^3/uL (4.0-10.0)
[2020-10-02 05:04] LABS: Anion Gap 11.5 (5-19); Blood Urea Nitrogen 23 mg/dL (8-23); Calcium 8.4 mg/dL (8.5-10.5); Carbon Dioxide 25 mmol/L (22-29); Chloride 106 mmol/L (98-107); Glucose 102 mg/dL (65-115); Osmolality Calculated 290 mOsm/kg (285-295); Potassium 4.5 mmol/L (3.5-5.1); Sodium 138 mmol/L (136-145)
[2020-10-02] MEDS: carvedilol 3.125 mg Tablet PO (08:23)
[2020-10-02] MEDS: finasteride 5 mg Tablet PO (08:24)
[2020-10-02] MEDS: atorvastatin 40 mg Tablet PO (08:24)
[2020-10-02] MEDS: clopidogrel 75 mg Tablet PO (08:24)
[2020-10-02] MEDS: montelukast sodium 10 mg Tablet PO (08:24)
[2020-10-02] MEDS: lisinopril 5 mg Tablet PO (08:24)
[2020-10-02] MEDS: omega-3 fatty acids 1,000 mg Capsule 1000 MG PO (08:24)
--- NOTE | 2020-10-02 10:53 | P.DS_ITS ---
Discharge Providers Date of Discharge: October 02, 2020 Attending Provider at Discharge: Jose Raul Florez MD Primary Care Provider: Hema Hartman MD Diagnoses at Discharge Discharge Diagnosis (1) Critical lower limb ischemia: Status: Acute (2) HTN (hypertension): Status: Acute Qualifiers: Hypertension type: essential hypertension Qualified Code(s): I10 - Essential (primary) hypertension (3) Hx of CABG: Status: Acute (4) COPD (chronic obstructive pulmonary disease): Status: Acute Qualifiers: COPD type: unspecified COPD Qualified Code(s): J44.9 - Chronic obstructive pulmonary disease, unspecified Reason for Visit Reason for Visit: right Peripheral Diagnostic 63453 G62.9 Hospital Course Hospital Course 75-year-old male past medical history significant for coronary artery disease status post CABG, COPD, severe peripheral vascular disease, diabetes mellitus and CKD stage III for critical limb ischemia nonhealing ulcer of right foot/fifth toe with loss of nail underwent peripheral angiogram which showed significant calcified occlusion of distal common iliac and complete 100% occlusion of proximal to distal right SFA, complete occlusion of right popliteal and significant occlusion of tibial peroneal trunk. After somewhat difficulty we were able to cross the highly calcified lesion. Balloon angioplasty of right common iliac followed by CSI atherectomy of right SFA, popliteal artery and tibioperoneal trunk was performed. Drug-coated balloon was used in right SFA wide nondrug-coated balloon was used and right tibioperoneal trunk. Excellent angiographic result with good flow was achieved. Two-vessel runoff was noted. Patient had good dopplerable anterior posterior tibial pulse. Physical Exam Narrative: EXAM NARRATIVE: GENERAL: Patient is alert, awake and oriented x3. NECK: No jugular vein distension. HEENT: No cyanosis. No icterus. No pallor. HEART: Regular S1 and S2. No murmur, rub or gallop. LUNGS: Clear to auscultate bilaterally. ABDOMEN: Soft, nontender and nondistended. Positive bowel sounds. No guarding, rebound or tenderness. CENTRAL NERVOUS SYSTEM: Grossly nonfocal. EXTREMITIES: Lower extremities without edema bilaterally. Pulses not palpable in the lower extremities, both dorsalis pedis and posterior tibial. Right fifth toe nonhealing ulcer Const: COMMON NORMALS: alert Resp: COMMON NORMALS: clear to auscultation bilaterally AUSCULTATION: clear to auscultation bilaterally Neuro: SENSORIUM/ORIENTATION: Yes alert Discharge Data Data Completed and Pending: Pending at discharge Category Date Time Status [employer] request for service Routin e Exams 10/01/20 07:00 Taken Labs from last 24 hours 10/02/20 10/02/20 10/01/20 04:30 04:30 12:20 WBC 12.2 H RBC 3.50 L Hgb 10.6 L Hct 33.4 L MCV 95.4 H MCH 30.3 MCHC 31.7 RDW 14.0 Plt Count 180 MPV 9.3 Neut % (Auto) 70.3 Lymph % (Auto) 18.4 [place]oula % (Auto) 9.2 Eos % (Auto) 1.3 Baso % (Auto) 0.4 Neut # (Auto) 8.57 H Lymph # (Auto) 2.3 [place] # (Auto) 1.1 H Eos # (Auto) 0.2 Baso # (Auto) 0.1 Nucleated RBC % (a uto) 0 Nucleated RBCs # 0.0 APTT 156.1 H* Sodium 138 Potassium 4.5 Chloride 106 Carbon Dioxide 25 Anion Gap 11.5 BUN 23 Creatinine 1.3 H GFR Calculation Not Reportable Glucose 102 Calculated Osmolal ity 290 Calcium 8.4 L Vitals: Last Vital Signs Temp 97.6 F 10/02/20 07:28 Pulse 78 10/02/20 08:51 Resp 18 10/02/20 08:51 BP 108/45 10/02/20 07:28 Pulse Ox 96 10/02/20 08:51 Discharge Plan Discharge Patient Disposition: Home Condition: Stable Prescriptions: New aspirin [Adult Aspirin Regimen] 81 mg tablet,delayed release (DR/EC) 81 mg PO DAILY Qty: 90 RF: 4 Continued finasteride 5 mg tablet 5 mg PO DAILY RF: 0 albuterol sulfate [Ventolin HFA] 90 mcg/actuation HFA aerosol inhaler 1 inh INHALATION DAILY RF: 0 carvedilol [Coreg] 3.125 mg tablet 3.125 mg PO BID Qty: 180 RF: 3 clopidogrel 75 mg tablet 75 mg PO DAILY Qty: 90 RF: 3 lisinopril 5 mg tablet 5 mg PO DAILY Qty: 90 RF: 3 Trelegy Ellipta 100-62.5-25 mcg blister with device 1 inh INHALATION DAILY Qty: 60 RF: 3 multivitamin [Multiple Vitamins] Tablet 1 tab PO DAILY RF: 0 atorvastatin 40 mg tablet 40 mg PO DAILY RF: 0 garlic 1,000 mg Capsule 1,000 mg PO DAILY RF: 0 famotidine 20 mg Tablet 20 mg PO DAILY RF: 0 montelukast 10 mg tablet 10 mg PO DAILY RF: 0 fluticasone propionate 50 mcg/actuation Paicines,Suspension 1 spray INTRANASAL DAILY RF: 0 metformin 500 mg tablet extended release 24 hr 500 mg PO BID RF: 0 omega 0-zqv-lix-fish oil [Fish Oil] 1,000 mg (120 mg-180 mg) Capsule 1 cap PO DAILY RF: 0 Discharge Orders: Discharge Order (Routine); Ordered 10/02/20 Ordered By: Jose Raul Florez Referrals: Jose Raul Florez MD [Physician] - 12/18/20 2:00 pm (Please keep the cardiology appointment you alreay have scheduled with Dr. Florez at [facility] on December 18 at 2:00pm) Kalani Mckeon FNP [Nurse Practitioner] - 1 week Hema Hartman MD [Primary Care Provider] - Discharge Diet: Cardiac and Low Salt Discharge Activity: Increase activity as tolerated Patient Instructions: Aspirin (By mouth), Peripheral Vascular Stent Placement (DC), Peripheral Vascular Angioplasty (DC) Activity Restrictions/Additional Instructions: Follow-up with Ms. Kalani Mckeon cardiology nurse practitioner in 7 days. Follow-up with Dr. Florez in 3 months. Follow-up with Dr. Hema Hartman as scheduled Discharge Attestations Time Spent in Discharge Care*: less than 30 min Status at Discharge: Cognitive status at discharge: other (sedated) , Quality Metrics Clinical Quality Measures During this hospital stay, did patient experience: None
--- NOTE | 2020-10-02 11:14 | PC.CHAP ---
Pastoral Care Encounter/Spiritual Assessment Type of Contact [] Declined bar pointer visit [] Patient/Family/Request visit [] Outpatient visit [] Follow-up visit [] Physician referral [] Code/Alert [x] Routine visit [] Staff referral [] Actively dying [] Patient sleeping [] Family support [] [] Out of room [] Palliative care [] [x] Receiving care in room [] Pre-surgical visit [] Trauma [] Long length of stay [] ICU visit [] Other: Relational/Emotional Strength [x] Patient feels connected with others/family/visitors/staff [] Distress [] Loneliness/isolation [] Abandonment Spirituality of Patient [x] Person of Kayla [] Attends Rastafarian of their Kayla [x] Believes in Prayer [] Reads Bible or Protestant materials [] There are Spiritual issues to be addressed Tenant Selector Interventions [x] Prayer [x] Active listening [x] Non-anxious presence [x] Spiritual/emotional support [] Crisis/trauma care [x] Spiritual counseling [] Bereavement support [] Provided bereavement packet [] Provided Bible/devotional materials [] Provided toy/stuffed animal, coloring book to patient or family member [] Provided Communion [] Anointing/Pioneer [] Salvation [x] Completed spiritual assessment [] Other: Impact on Illness or Injury [] Angry [] Fearful [x] Anxious [] Often cries [] Exhaustion [] Unable to work [] Unable to attend muslim [] Unable to walk/stand [] Unable to read [] Unable to drive [] Unable to eat/drink [] Unable to sleep [] Unable to be with family [] Patient intubated [] Other: Summary has some blockage ardery in foot, no tests the doctor knew wht needed to be done, going home, has a good attitude Time spent with patient 10 mins
== END 2020-10-02 13:00 | disposition home or self-care (01) ==
LOC: CCL 06:02 → CSU 09:01
PROVIDERS: PCP Family Medicine; Visit Provider Internal Medicine Cardiovascular Disease
DX: I73.9 Peripheral vascular disease, unspecified (principal); Z95.1 Presence of aortocoronary bypass graft; J44.9 Chronic obstructive pulmonary disease, unspecified; I25.10 Atherosclerotic heart disease of native coronary artery without angina pectoris; E11.22 Type 2 diabetes mellitus with diabetic chronic kidney disease; I12.9 Hypertensive chronic kidney disease with stage 1 through stage 4 chronic kidney disease, or unspecified chronic kidney disease; N18.30 Chronic kidney disease, stage 3 unspecified; E11.621 Type 2 diabetes mellitus with foot ulcer; E78.5 Hyperlipidemia, unspecified; Z79.84 Long term (current) use of oral hypoglycemic drugs; G47.33 Obstructive sleep apnea (adult) (pediatric); Z87.891 Personal history of nicotine dependence
CPT/HCPCS: 36415; 37220; 37225; 37229; 75625; 75716; 80048; 85025; 85610; 85730; 94640; C1724; C1725; C1769; C1887; C1894; C2623; J1644; J2250; J2270; J3010; J3490; J3535; J7030; Q0163; Q9967

== ENCOUNTER 2020-10-09 08:54 | Outpatient (CLI) | payer MEDICARE, OTHER, SELFPAY | END 2020-10-09 08:55 | disposition home or self-care (01) | LOC: WOUND 08:56 | PROVIDERS: PCP Family Medicine; Visit Provider Nurse Practitioner Family | DX: E11.621 Type 2 diabetes mellitus with foot ulcer (principal); L97.512 Non-pressure chronic ulcer of other part of right foot with fat layer exposed; N18.31 Chronic kidney disease, stage 3a | CPT/HCPCS: 80048; G0463 ==

== ENCOUNTER 2020-10-16 08:35 | Outpatient (CLI) | payer MEDICARE, OTHER, SELFPAY | END 2020-10-16 08:36 | disposition home or self-care (01) | LOC: WOUND 08:37 | PROVIDERS: PCP Family Medicine; Visit Provider Nurse Practitioner Family | DX: E11.621 Type 2 diabetes mellitus with foot ulcer (principal); L97.512 Non-pressure chronic ulcer of other part of right foot with fat layer exposed; I96 Gangrene, not elsewhere classified; Z87.891 Personal history of nicotine dependence | CPT/HCPCS: G0463 ==

== ENCOUNTER 2020-10-30 08:56 | Outpatient (CLI) | payer MEDICARE, OTHER, SELFPAY | END 2020-10-30 08:57 | disposition home or self-care (01) | LOC: WOUND 08:57 | PROVIDERS: PCP Family Medicine; Visit Provider Nurse Practitioner Family | DX: I73.9 Peripheral vascular disease, unspecified (principal); L97.512 Non-pressure chronic ulcer of other part of right foot with fat layer exposed | CPT/HCPCS: G0463 ==

== ENCOUNTER 2020-11-13 08:48 | Outpatient (CLI) | payer MEDICARE, OTHER, SELFPAY | END 2020-11-13 08:49 | disposition home or self-care (01) | LOC: WOUND 08:49 | PROVIDERS: PCP Family Medicine; Visit Provider Nurse Practitioner Family | DX: E11.621 Type 2 diabetes mellitus with foot ulcer (principal); Z20.822 Contact with and (suspected) exposure to COVID-19; L97.512 Non-pressure chronic ulcer of other part of right foot with fat layer exposed; Z11.52 Encounter for screening for COVID-19 | CPT/HCPCS: 87635; G0463 ==

== ENCOUNTER 2020-11-18 11:56 | Observation (INO) | payer MEDICARE, OTHER, SELFPAY ==
[2020-11-13 10:21] LABS: Basophils # 0.1 10^3/uL (0.0-0.1); Basophils % 0.7 %; Eosinophils # 0.2 10^3/uL (0.0-0.8); Eosinophils % 1.8 %; Hematocrit 39.4 % (42.0-52.0); Hemoglobin 12.5 g/dL (11.7-16.6); Lymphocytes # 2.4 10^3/uL (0.8-4.8); Lymphocytes % 22.8 %; Mean Corpuscular HGB Conc 31.7 g/dL (30.0-36.0); Mean Corpuscular Volume 97.8 fL (80-94); Mean Platelet Volume 9.5 fL (7.4-10.4); Monocytes # 0.8 10^3/uL (0.2-0.9); Monocytes % 7.3 %; Neutrophils # 7.04 10^3/uL (1.8-7.7); Nucleated Red Blood Cells % 0 %; Platelet Count 266 10^3/cmm (130-400); Red Blood Count 4.03 10^6/uL (4.1-5.3); Red Cell Distribution Width 14.9 % (12.1-15.1); White Blood Count 10.5 10^3/uL (4.0-10.0)
[2020-11-13 10:35] LABS: INR 1.01 (0.83-1.21); Prothrombin Time (Patient) 13.6 Seconds (12.0-15.1)
[2020-11-13 10:40] LABS: Anion Gap 14.8 (5-19); Blood Urea Nitrogen 29 mg/dL (8-23); Calcium 9.3 mg/dL (8.5-10.5); Carbon Dioxide 26 mmol/L (22-29); Chloride 104 mmol/L (98-107); Glucose 106 mg/dL (65-115); Osmolality Calculated 296 mOsm/kg (285-295); Potassium 4.8 mmol/L (3.5-5.1); Sodium 140 mmol/L (136-145)
[2020-11-18] VITALS (45 sets, daily range): BP systolic 101–143; BP diastolic 34–80; PULSE 70–91; RESP 15–35; TEMP 36.3–36.8; O2SAT 91–96; BMI 29.7
--- NOTE | 2020-11-18 09:00 | XACV_ITS ---
Ht: 178 cm Wt: 94 kg BSA: 2.18 m2 Any Known Allergies: No known allergies Gender: Male : 1945 Exam Type: Invasive Peripheral Vascular Procedure(s): Procedure Description: Peripheral Cath Diagnostic Procedure Procedure Description: Lower extremities' angiography Procedure Description: Peripheral vascular Intervention Procedure Description: PV Balloon Procedure Description: PV Atherectomy Exam Priority: Routine Conclusions Indication for peripheral angiogram: Lifestyle limiting claudication David classification grade 1 category 3. [place] 3Popliteal approach was adopted to perform peripheral angiogram of left chronically occluded SFA from proximal to distal segment which reconstitute at left popliteal vessel through profunda. After somewhat difficulty were able to cross the lesion with the help of Glidewire into left common iliac and then into aorta. Viper wire was exchanged through seeker. Using 2.0 bur of CSI atherectomy device were able to perform multiple atherectomy runs in proximal to distal segment of the SFA. Hunnewell balloon was used 6.0 x 250 x 135 mm. Popliteal vessel was also noted to have eccentric lesion which was dilated with 5.0 x40 mm Hunnewell balloon after withdrawing the sheath but keeping the balloon in the blood vessel. Excellent angiographic result was noted in the left SFA. 1-2 vessel runoff was noted below the left knee due to collaterals as anterior tibial and posterior tibial vessels are occluded in the proximal segment however reconstituted through collaterals.. Recommendations Usual post-cath care. Continue medical management. Continue lifestyle modification.. Hemodynamic Data Phase:Rest AO : 148.0 / 54.0 ( 90.0 ) @ 12:08:00 PM Access Site Site: Left Popliteal Sheath Size: 6 Fr Hemost... Method: Suture Hemost... Success: Successful Procedure Details Findings Procedure Consent Obtained. Pre-Procedure Time Out. Identified patient by full name and date of as verbalized by the patient/guarantor. Does the consent match the physician's order: Yes. Accurate & Complete Informed Consent: Yes. Inpatient/Outpatient History & Physical on Chart: Yes. If H&P is completed, is and addenduem needed: No; If yes, is the addendum complete: N/A. Visualize and Verify Site with Patient/Guarantor: N/A. Relevant Radiology Images available: N/A. Pre-op teaching completed and patient verbalized understanding. The risks, benefits, and alternatives of sedation and/or procedure were discussed by physician. The patient agrees to continue. Procedure started. Correct patient, site and procedure confirmed by cath team. PERRLA. Strong, equal hand conveyor maintenance mechanic bilaterally. Lungs clear x 5 lobes. IV Site on Arrival: 20 gauge in the left anticubital. IV Fluids: 0.9% NaCl at KVO. 0 mL infused prior to quality lab assoc. Pre Procedural Pulses: bilateral dorsalis pedis was Doppled. Pre Procedural Pulses: bilateral posterior tibial was Doppled. Pre Procedural Pulses: bilateral radial was 3+. Oxygen started at 2liters/min via nasal canula. popliteal was prepped with chloroprep then draped in the usual sterile fashion. Physician arrived. Equipment: Peripheral. Cardiac Cath Pack. ACIST Manifold Kit Model BT 2000. Heparinized Saline (2 units/mL), 1000 mL bag. Physician scrubbed in. Immediate Pre-Procedure Time Out. Time out performed with cath team. Lidocaine 1% infiltrated to the left popliteal. Ultrasound used to gain access in left popliteal. Arterial access obtained with micropuncture set. Glidewire inserted. SEEKER catheter inserted over glidewire. Glidewire out. Hand injection through SEEKER. VIPER wire inserted through the Seeker. 2.0 Diamondback 360 orbital atherectomy device inserted over the Viper wire. Orbital atherectomy performed in Left SFA. Orbital atherectomy performed in Left SFA. Orbital atherectomy performed in Left SFA. Orbital atherectomy performed in Left SFA. Orbital atherectomy performed in Left SFA. Diamonback atherectomy device removed over VIPER wire. Seeker catheter inserted over VIPER. VIPER wire out. Glidewire inserted. Seeker catheter out over glidewire. Inflation number : 1 A AB Hunnewell 35 DISTRICT SCOUT EXECUTIVE Catheter [id number] was prepped and advanced across the Superficial Femoral, Left , then inflated to 12 ROSALIA for 2:05 seconds. Inflation number: 2 The AB Hunnewell 35 DISTRICT SCOUT EXECUTIVE Catheter [id number] was reinflated across the Superficial Femoral, Left, to 12 ROSALIA for 2:06 seconds. Balloon out over wire. 6 fr sheath exchanged for a new 6 fr sheath. Left leg runoff through sheath 10 ml for total of 30 ml. Hand injection through sheath. Sheath out over wire. Inflation number : 1 A AB ARMADA 35 OTW [id number] was prepped and advanced across the Popliteal, Left , then inflated to 14 ROSALIA for 2:03 seconds. Inflation number: 2 The AB ARMADA 35 OTW [id number] was reinflated across the Popliteal, Left, to 14 ROSALIA for 2:02 seconds. Balloon out over wire. 6 fr sheath inserted over glidewire. Glidewire out. Hand injection performed. Physician scrubbed out. A Suture was successful obtaining hemostatsis at the Left Popliteal insertion site. Sheath(s) sutured into position with 2-0 silk and sterile 4x4's and Op-site applied over the site. No oozing or signs and symptoms of hematoma noted. Arterial sheath flushed and connected to tranducer and pressure bag with heparinized saline. Post Procedure: Pulses reassessed and unchanged. PERRLA. Strong, equal hand conveyor maintenance mechanic bilaterally. No VTE prophylaxis required. Medication's Wasted: Heparin = 2000 units. Medication's Wasted: Nitro = 49.6 units. Total IV fluids: 106 mL. Contrast type used: Visipaque 320 mgI/mL, 500 mL bottle. Post-op diagnosis: severe PAD. Complications: none. Estimated blood loss: 5mL-10mL. Procedure completed. Patient transferred by bed to 1st floor. Vital chart was stopped. Procedure Medications Start: 12:09 PM Stop: 12:09 PM Medication: Versed Amount: 1 mg Route: I.V. Start: 12:09 PM Stop: 12:09 PM Medication: Fentanyl Amount: 50 mcg Route: I.V. Start: 12:32 PM Stop: 12:32 PM Medication: Versed Amount: 1 mg Route: I.V. Start: 12:32 PM Stop: 12:32 PM Medication: Fentanyl Amount: 50 mcg Route: I.V. Start: 12:51 PM Stop: 12:51 PM Medication: Heparin Amount: 5000 units Route: I.V. Start: 12:51 PM Stop: 12:51 PM Medication: Versed Amount: 1 mg Route: I.V. Start: 1:04 PM Stop: 1:04 PM Medication: Heparin Amount: 2000 units Route: I.V. Start: 1:05 PM Stop: 1:05 PM Medication: Nitrogylcerin Amount: 400 mcg Route: I.A. Start: 1:18 PM Stop: 1:18 PM Medication: Versed Amount: 1 mg Route: I.V. Start: 1:23 PM Stop: 1:23 PM Medication: Nitrogylcerin Amount: 400 mcg Route: I.A. I, the attending physician, have reviewed and verified all procedure medications. Yes, all medications given per verbal order History/Risk Factors Hypertension: Yes Dyslipidemia: No Peripheral Arterial Disease (PAD): Yes Obesity: No Renal Disease: No Tobacco Use: Current/Recent(w/in 1 year) Prior Interventions PCI: No CABG: Yes Valve Surgery: No Report Signatures Finalized by Jose Raul Florez MD on 11/30/2020 06:55 PM
[2020-11-18] MEDS: diphenhydrAMINE 50 mg Capsule PO (09:10)
--- NOTE | 2020-11-18 11:51 | W.PM.OPSUD ---
Surgery/Procedure H&P Update DATE OF PROCEDURE: November 18, 2020 DATE H&P PERFORMED: 10/09/20 H&P UPDATE INFORMATION: I have reviewed H&P completed within last 30 days, I have examined patient prior to procedure and No changes to prior documentation PREOP DIAGNOSIS: Critical limb ischemia, left foot pain at rest, lifestyle limiting claudica PLANNED PROCEDURE: Operation Date: 11/18/20 10:00 Proposed Procedures p Peripheral Diagnostic [id number] I73.9(Not Applicable) - Jose Raul Florez MD PATIENT REASSESSED PRIOR TO SEDATION, WITH NO CHANGE NOTED: Yes PHYSICAL EXAM: alert and clear to auscultation bilaterally AIRWAY EVAL/ANESTHESIA PLAN: ASA II, Risks, benefits & alternatives of sedation and/or procedure discussed and Patient agrees to continue as planned
--- NOTE | 2020-11-18 11:52 | W.PM.OPSFHP ---
Same Day Surgery H&P Indication for Procedure/HPI DATE OF PROCEDURE: November 18, 2020 CHIEF COMPLAINT/INDICATIONFOR SURGICAL PROCEDURE: Lifestyle limiting claudication of left leg with resting foot pain occasional PREOP DIAGNOSIS: Critical limb ischemia, left foot pain at rest, lifestyle limiting claudica PLANNED PROCEDRUE: Operation Date: 11/18/20 10:00 Proposed Procedures p Peripheral Diagnostic [id number] I73.9(Not Applicable) - Jose Raul Florez MD 75-year-old male past medical history significant for hypertension hyperlipidemia coronary artery disease, severe peripheral vascular disease, COPD underwent peripheral angiogram few weeks ago for right iliac and SFA intervention. He is happy with the outcome. He continues to have worsening of symptoms in the left leg. During that peripheral angiogram it was learned that patient has chronically occluded ostial SFA with reconstitute around the popliteal. He has a two-vessel runoff below the left knee. Today he is here for peripheral angiogram and possible intervention. All risk benefit and alternative for the procedure were explained by myself to the patient. He understand it. Patient understand risk benefit FDA warning with high mortality in case of drug-coated balloon. He has given me permission if required he I may can use it. We will proceed with the procedure now . Medications/Allergies* Home Medications Medication Instructions Recorded Confirmed Type atorvastatin 40 mg PO DAILY 01/07/20 11/17/20 History famotidine 20 mg PO DAILY 01/07/20 11/17/20 History fluticasone propionate 1 spray INTRANASAL DAILY 01/07/20 11/17/20 History garlic 1,000 mg PO DAILY 01/07/20 11/17/20 History metformin 500 mg PO BID 01/07/20 11/17/20 History montelukast 10 mg PO DAILY 01/07/20 11/17/20 History multivitamin [Multiple Vitamins] 1 tab PO DAILY 01/07/20 11/17/20 History omega 7-ase-ole-fish oil [Fish Oil] 1 cap PO DAILY 01/07/20 11/17/20 History albuterol sulfate 90 mcg/actuation 1 inh INHALATION DAILY gm 03/03/20 11/17/20 History aerosol inhaler finasteride 5 mg tablet 5 mg PO DAILY tab 03/07/20 11/17/20 History ialwljkdifh-tiadqbpym-vpvvseui 1 inh INHALATION DAILY 11/18/20 11/18/20 History [Trelegy Ellipta] Allergies/Adverse Reactions Allergy/AdvReac Type Severity Reaction Status Date / Time No Known Allergies Allergy Verified 10/09/20 10:38 Current Medications: Generic Name Dose Route Start Last Admin Trade Name Kwaku PRN Reason Stop Dose Admin Sodium Chloride 1,000 mls @ 50 mls/hr 11/18/20 09:00 11/18/20 09:25 Sodium Chloride 0.9% IV 11/19/20 04:59 Not Given .Q20H ONE Pertinent History/Comorbid Conditions* Medical History (Updated 10/09/20 @ 13:49 by RENE Castrejon) CAD (coronary artery disease) -follows up with Dr. Florez -s/p CABG Chronic anemia -baseline Hg around 10 Chronic kidney disease CKD (chronic kidney disease) stage 2, GFR 60-89 ml/min -baseline Cr wnl Congestive heart failure COPD (chronic obstructive pulmonary disease) Fracture, femoral HTN (hypertension) Non-insulin dependent diabetes mellitus -A1c-5.9 -accuchecks, ISS, hypoglycemia precautions -hold metformin -anticipate hyperglycemia with steroid use and acute illness -consistent carb diet as tolerated Obesity -BMI-31 kg/m2 DARIUS (obstructive sleep apnea) -CPAP qhs Peripheral arterial disease Surgical History (Updated 03/09/20 @ 17:02 by Jose Raul Florez MD) Hx of CABG Hx of cholecystectomy Family History (Updated 01/07/20 @ 19:59 by Kev Dockery MD) CAD (coronary artery disease) Mother Social History Smoking and tobacco status: former smoker Quit status (tobacco): has quit using tobacco Year quit tobacco: 2014 1ppd x 60 Second hand smoke exposure: No Smoking risk assessment/counseling performed?: Yes Alcohol intake: never Lives independently: Yes Household members: spouse Marital status: Current occupational status: retired History of recent travel: No Current gender identity: Male Pertinent Exam Findings alert, oriented x 3 and clear to auscultation bilaterally Conscious Sedation Assessment PATIENT ASSESSED PRIOR TO SEDATION, WITH NO CHANGE NOTED: Yes AIRWAY EVAL/ANESTHESIA PLAN: ASA II, Risks, benefits & alternatives of sedation and/or procedure discussed and Patient agrees to continue as planned Recommendations Surgery/Procedure today Coding Level of Care Code Acute Valve Pipe Irrigator for Angelika Mckenzie
[2020-11-18 16:02] LABS: Partial Thromboplastin Time 114.5 SECONDS (23.9-36.7)
--- NOTE | 2020-11-18 16:41 | PC.NURSE ---
1640 PTT results available. Ptt 114.5. Next coag study to be ordered 1730.
[2020-11-18] MEDS: fentaNYL 50 mcg/mL INJ 2mL IVP (17:32)
[2020-11-18] MEDS: carvedilol 3.125 mg Tablet PO (17:33)
[2020-11-18 18:15] LABS: Partial Thromboplastin Time 37.2 SECONDS (23.9-36.7)
--- NOTE | 2020-11-18 20:27 | PC.NURSE ---
Arterial sheath removed from left popliteal at 2141. Manual pressure held for 20 minutes. Dressing applied. No bleeding or hematoma noted. VSS. Patient educated on post-cath activity restrictions and verbalized understanding. RAMÍREZ Luong states in report that IV fluids are to be shut off at 2345 per doctor.
[2020-11-18] MEDS: alum-mag-hydroxide-sime 30 mL UDC PO (22:44)
--- NOTE | 2020-11-18 22:45 | PC.NURSE ---
IV fluids shut off at this time. Dr. Florez ordered to shut off after bag was empty.
[2020-11-19] VITALS (24 sets, daily range): BP systolic 90–133; BP diastolic 39–69; PULSE 70–91; RESP 16–30; TEMP 36.6–36.7; O2SAT 86–97
--- NOTE | 2020-11-19 00:14 | PC.NURSE ---
Patient c/o heartburn. PRN Maalox given. Patient then c/o nausea. PRN Zofran ordered. Patient vomited. PRN Zofran will be given.
[2020-11-19] MEDS: ondansetron 2 mg/ML SDV 2 mL 4 MG IVP (00:16)
--- NOTE | 2020-11-19 01:52 | PC.NURSE ---
Patient having several episodes of nausea with vomiting. Zofran has been administered as ordered. Spoke with Dr Garcia and received telephone order for NS at 75ml/hr. RBVO
[2020-11-19] MEDS: sodium chloride 0.9% 1,000 ML 75 ML IV (02:09)
--- NOTE | 2020-11-19 04:34 | PC.NURSE ---
Site soft, without redness or warmth, covered with gauze and transparent dressing
[2020-11-19 04:46] LABS: Basophils # 0.1 10^3/uL (0.0-0.1); Basophils % 0.4 %; Eosinophils % 0.2 %; Hematocrit 34.2 % (42.0-52.0); Lymphocytes # 1.3 10^3/uL (0.8-4.8); Lymphocytes % 10.1 %; Mean Corpuscular HGB Conc 32.2 g/dL (30.0-36.0); Mean Corpuscular Volume 96.3 fL (80-94); Mean Platelet Volume 9.7 fL (7.4-10.4); Monocytes # 0.6 10^3/uL (0.2-0.9); Monocytes % 4.3 %; Neutrophils # 10.89 10^3/uL (1.8-7.7); Neutrophils % 84.5 %; Nucleated Red Blood Cells % 0 %; Platelet Count 187 10^3/cmm (130-400); Red Blood Count 3.55 10^6/uL (4.1-5.3); Red Cell Distribution Width 14.7 % (12.1-15.1); White Blood Count 12.9 10^3/uL (4.0-10.0)
[2020-11-19 05:13] LABS: Anion Gap 13.5 (5-19); Blood Urea Nitrogen 34 mg/dL (8-23); Calcium 8.3 mg/dL (8.5-10.5); Carbon Dioxide 26 mmol/L (22-29); Chloride 105 mmol/L (98-107); Glucose 156 mg/dL (65-115); Osmolality Calculated 301 mOsm/kg (285-295); Potassium 4.5 mmol/L (3.5-5.1); Sodium 140 mmol/L (136-145)
--- NOTE | 2020-11-19 08:41 | P.DS_ITS ---
Discharge Providers Date of Admission: 11/18/20 11:56 Date of Discharge: November 19, 2020 Attending Provider at Admission: Jose Raul Florez MD Attending Provider at Discharge: Jose Raul Florez MD Primary Care Provider: Hema Hartman MD Reason for Visit Reason for Visit: pvd Hospital Course Hospital Course 75-year-old male for lifestyle limiting claudication and reaching point of critical limb ischemia of the resting left foot pain underwent peripheral angiogram through popliteal approach noted to have completely occluded ostial to distal SFA. CSI atherectomy using 2.0 rashid was performed in hold SFA followed by balloon angioplasty using [place] 6.0x250 balloon. Popliteal artery was also angioplastied with 5.0 x 40 mm [place] balloon at the end of the procedure after withdrawing the sheath and sheathless manner within the vessel since it is a diseased vessel. Excellent angiographic result with good flow was noted. In the evening sheath was pulled out from the popliteal vessel. After completing bedrest patient continues to have good dopplerable anterior posterior tibial pulses. No overnight event. Wound site looks good in the back of the knee /popliteal fossa. He is being discharged home. Follow-up with Kalani Mckeon cardiology nurse practitioner in 7 days. Follow-up with Dr. Florez in 3 months. Continue Plavix and aspirin. Physical Exam Narrative: EXAM NARRATIVE: GENERAL: Patient is alert, awake and oriented x3. NECK: No jugular vein distension. HEENT: No cyanosis. No icterus. No pallor. HEART: Regular S1 and S2. No murmur, rub or gallop. LUNGS: Clear to auscultate bilaterally. ABDOMEN: Soft, nontender and nondistended. Positive bowel sounds. No guarding, rebound or tenderness. CENTRAL NERVOUS SYSTEM: Grossly nonfocal. EXTREMITIES: Lower extremities without edema bilaterally. Pulses palpable in the lower extremities, both dorsalis pedis and posterior tibial. Discharge Data Data Completed and Pending: Pending at discharge Category Date Time Status CORPORATE EVENTS DIRECTOR request for service Routin e Exams 11/18/20 09:00 Taken Labs from last 24 hours 11/19/20 11/19/20 11/18/20 04:30 04:30 17:45 WBC 12.9 H RBC 3.55 L Hgb 11.0 L Hct 34.2 L MCV 96.3 H MCH 31.0 MCHC 32.2 RDW 14.7 Plt Count 187 MPV 9.7 Neut % (Auto) 84.5 Lymph % (Auto) 10.1 [place] % (Auto) 4.3 Eos % (Auto) 0.2 Baso % (Auto) 0.4 Neut # (Auto) 10.89 H Lymph # (Auto) 1.3 Amador # (Auto) 0.6 Eos # (Auto) 0.0 Baso # (Auto) 0.1 Nucleated RBC % (a uto) 0 Nucleated RBCs # 0.0 APTT 37.2 H D Sodium 140 Potassium 4.5 Chloride 105 Carbon Dioxide 26 Anion Gap 13.5 BUN 34 H Creatinine 1.3 H GFR Calculation Not Reportable Glucose 156 H Calculated Osmolal ity 301 H Calcium 8.3 L 11/18/20 15:25 WBC RBC Hgb Hct MCV MCH MCHC RDW Plt Count MPV Neut % (Auto) Lymph % (Auto) Amador % (Auto) Eos % (Auto) Baso % (Auto) Neut # (Auto) Lymph # (Auto) Amador # (Auto) Eos # (Auto) Baso # (Auto) Nucleated RBC % (a uto) Nucleated RBCs # APTT 114.5 H Sodium Potassium Chloride Carbon Dioxide Anion Gap BUN Creatinine GFR Calculation Glucose Calculated Osmolal ity Calcium Vitals: Last Vital Signs Temp 97.9 F 11/19/20 04:59 Pulse 75 11/19/20 05:59 Resp 19 H 11/19/20 04:59 BP 106/49 11/19/20 04:59 Pulse Ox 90 11/19/20 04:59 Discharge Plan Discharge Patient Disposition: Home Condition: Stable Prescriptions: Continued finasteride 5 mg tablet 5 mg PO DAILY RF: 0 albuterol sulfate [Ventolin HFA] 90 mcg/actuation HFA aerosol inhaler 1 inh INHALATION DAILY RF: 0 carvedilol [Coreg] 3.125 mg tablet 3.125 mg PO BID Qty: 180 RF: 3 clopidogrel 75 mg tablet 75 mg PO DAILY Qty: 90 RF: 3 lisinopril 5 mg tablet 5 mg PO DAILY Qty: 90 RF: 3 Trelegy Ellipta 100-62.5-25 mcg blister with device 1 inh INHALATION DAILY Qty: 60 RF: 3 aspirin [Adult Aspirin Regimen] 81 mg tablet,delayed release (DR/EC) 81 mg PO DAILY Qty: 90 RF: 4 multivitamin [Multiple Vitamins] Tablet 1 tab PO DAILY RF: 0 atorvastatin 40 mg tablet 40 mg PO DAILY RF: 0 garlic 1,000 mg Capsule 1,000 mg PO DAILY RF: 0 famotidine 20 mg Tablet 20 mg PO DAILY RF: 0 montelukast 10 mg tablet 10 mg PO DAILY RF: 0 fluticasone propionate 50 mcg/actuation [place],Suspension 1 spray INTRANASAL DAILY RF: 0 metformin 500 mg tablet extended release 24 hr 500 mg PO BID RF: 0 omega 8-xjr-vam-fish oil [Fish Oil] 1,000 mg (120 mg-180 mg) Capsule 1 cap PO DAILY RF: 0 Trelegy Ellipta 100-62.5-25 mcg Blister With Device 1 inh INHALATION DAILY RF: 0 Patient Instructions: Opioid Safety Discharge Attestations Time Spent in Discharge Care*: less than 30 min Status at Discharge: Cognitive status at discharge: other (sedated) , Quality Metrics Clinical Quality Measures During this hospital stay, did patient experience: None Coding Level of Care Code Established Pt Acute Chg FW DC note Patient Type Established Medical Decision Making Moderate Complexity
[2020-11-19] MEDS: montelukast sodium 10 mg Tablet PO (09:39)
[2020-11-19] MEDS: carvedilol 3.125 mg Tablet PO (09:39)
[2020-11-19] MEDS: clopidogrel 75 mg Tablet PO (09:40)
[2020-11-19] MEDS: finasteride 5 mg Tablet PO (09:40)
[2020-11-19] MEDS: famotidine 20 mg Tablet PO (09:40)
[2020-11-19] MEDS: lisinopril 5 mg Tablet PO (09:40)
[2020-11-19] MEDS: multivitamin therapeutic Tablet 1 TAB PO (09:40)
[2020-11-19] MEDS: atorvastatin 40 mg Tablet PO (09:40)
[2020-11-19] MEDS: aspirin 81 mg EC Tablet PO (09:40)
[2020-11-19] MEDS: metformin XR 500 MG Tablet PO (10:54)
--- NOTE | 2020-11-19 13:02 | PC.NURSE ---
Patient education has been provided, patient and have no questions or concerns regarding d/c instructions. Patients IV has been removed pressure dressing applied. Patient left via wheelchair to main entrance with his .
== END 2020-11-19 13:04 | disposition home or self-care (01) ==
LOC: CSU 11:57
PROVIDERS: Admitting Provider Internal Medicine Cardiovascular Disease; PCP Family Medicine; Visit Provider Internal Medicine Cardiovascular Disease
DX: I70.222 Atherosclerosis of native arteries of extremities with rest pain, left leg (principal); E78.5 Hyperlipidemia, unspecified; I25.10 Atherosclerotic heart disease of native coronary artery without angina pectoris; J44.9 Chronic obstructive pulmonary disease, unspecified; E11.22 Type 2 diabetes mellitus with diabetic chronic kidney disease; I13.0 Hypertensive heart and chronic kidney disease with heart failure and stage 1 through stage 4 chronic kidney disease, or unspecified chronic kidney disease; N18.2 Chronic kidney disease, stage 2 (mild); I50.9 Heart failure, unspecified; E66.9 Obesity, unspecified; Z68.29 Body mass index [BMI] 29.0-29.9, adult; G47.33 Obstructive sleep apnea (adult) (pediatric); Z87.891 Personal history of nicotine dependence
CPT/HCPCS: 36415; 37225; 75710; 80048; 85025; 85610; 85730; C1724; C1725; C1769; C1887; C1894; G0378; J1644; J2250; J2405; J3010; J3490; J3535; J7030; Q0163; Q9967

== ENCOUNTER → 2020-11-26 16:23 | Outpatient (BNVA) | payer MEDICARE, OTHER, SELFPAY | PROVIDERS: PCP Family Medicine; Visit Provider Nurse Practitioner Family | DX: I73.9 Peripheral vascular disease, unspecified (principal) | CPT/HCPCS: 80048 ==

== ENCOUNTER 2020-12-09 08:49 | Outpatient (CLI) | payer MEDICARE, OTHER, SELFPAY | END 2020-12-09 08:50 | disposition home or self-care (01) | LOC: WOUND 08:50 | PROVIDERS: PCP Family Medicine; Visit Provider Thoracic Surgery (Cardiothoracic Vascular Surgery) | DX: I73.9 Peripheral vascular disease, unspecified (principal); L97.516 Non-pressure chronic ulcer of other part of right foot with bone involvement without evidence of necrosis | CPT/HCPCS: 11042 ==

== ENCOUNTER 2020-12-10 11:34 | Outpatient (CLI) | payer MEDICARE, OTHER, SELFPAY ==
--- NOTE | 2020-12-10 11:41 | XR_ITS ---
WS: [id number] RIGHT FOOT: 3 VIEW(S) TECHNIQUE: AP, oblique and lateral. HISTORY: FOOT ULCER TYPE II DIABETES MELLITUS COMPARISON: 09/25/2020 Progressive bone destruction involving the distal fifth toe. There is adjacent soft tissue edema and ulceration. Mild interphalangeal joint space narrowing. No erosions. No foreign body. Small calcaneal spur. Enthe sopathy at the Achilles tendon attachment. Peripheral arterial disease. XR/XR foot RT min 3V* [id number] IMPRESSION: 1. Progressive osteomyelitis and cellulitis with ulceration involving the dist al fifth toe. 2. No erosions.
== END 2020-12-10 11:35 | disposition home or self-care (01) ==
PROVIDERS: PCP Family Medicine; Visit Provider Thoracic Surgery (Cardiothoracic Vascular Surgery)
DX: E11.621 Type 2 diabetes mellitus with foot ulcer (principal); M86.8X7 Other osteomyelitis, ankle and foot; L03.115 Cellulitis of right lower limb; L97.519 Non-pressure chronic ulcer of other part of right foot with unspecified severity
CPT/HCPCS: 73630

== ENCOUNTER 2020-12-18 09:37 | Outpatient (CLI) | payer MEDICARE, OTHER, SELFPAY | END 2020-12-18 09:38 | disposition home or self-care (01) | LOC: WOUND 09:38 | PROVIDERS: PCP Family Medicine; Visit Provider Nurse Practitioner Family | DX: E11.621 Type 2 diabetes mellitus with foot ulcer (principal); L97.512 Non-pressure chronic ulcer of other part of right foot with fat layer exposed | CPT/HCPCS: 11042 ==

== ENCOUNTER 2020-12-25 11:00 | Outpatient (CLI) | payer MEDICARE, OTHER, SELFPAY | END 2020-12-25 11:01 | disposition home or self-care (01) | LOC: WOUND 11:01 | PROVIDERS: PCP Family Medicine; Visit Provider Nurse Practitioner Family | DX: E11.621 Type 2 diabetes mellitus with foot ulcer (principal); L97.512 Non-pressure chronic ulcer of other part of right foot with fat layer exposed | CPT/HCPCS: 11042 ==

== ENCOUNTER 2020-12-29 10:31 | Outpatient (CLI) | payer MEDICARE, OTHER, SELFPAY | END 2020-12-29 10:32 | disposition home or self-care (01) | LOC: WOUND 10:32 | PROVIDERS: PCP Family Medicine; Visit Provider Nurse Practitioner Family | DX: E11.621 Type 2 diabetes mellitus with foot ulcer (principal); L97.512 Non-pressure chronic ulcer of other part of right foot with fat layer exposed | CPT/HCPCS: 11042 ==

== ENCOUNTER 2021-01-05 10:10 | Outpatient (CLI) | payer MEDICARE, OTHER, SELFPAY | END 2021-01-05 10:11 | disposition home or self-care (01) | LOC: WOUND 10:11 | PROVIDERS: PCP Family Medicine; Visit Provider Nurse Practitioner Family | DX: E11.621 Type 2 diabetes mellitus with foot ulcer (principal); L97.512 Non-pressure chronic ulcer of other part of right foot with fat layer exposed | CPT/HCPCS: 11042 ==

== ENCOUNTER 2021-01-15 13:18 | Outpatient (CLI) | payer MEDICARE, OTHER, SELFPAY | END 2021-01-15 13:19 | disposition home or self-care (01) | LOC: WOUND 13:19 | PROVIDERS: PCP Family Medicine; Visit Provider Nurse Practitioner Family | DX: Z09 Encounter for follow-up examination after completed treatment for conditions other than malignant neoplasm (principal) | CPT/HCPCS: 99212 ==

== ENCOUNTER 2021-01-26 07:56 | Outpatient (CLI) | payer MEDICARE, OTHER, SELFPAY ==
--- NOTE | 2021-01-26 08:02 | CT_ITS ---
WS: [id number] LDCT LUNG CANCER SCREENING HISTORY: HX OF TOBACCO USE TECHNIQUE: Axial imaging performed from the apices to 1 cm below the costophrenic angles. Coronal and sagittal reformats are submitted with axial MIP series. All CT scans at [facility] use at least one of these dose optimization techniques: automated exposure control; mA and/or kV adjustment per patient size (includes targeted exams where dose is matched to clinical indication); or iterativ e reconstruction. DLP: 84.55 mGy.cm DIvol: 2.3 mGy COMPARISON: 02/26/2020 Diagnostic quality: Satisfactory Lung Nodules: No solid pulmonary nodules are identified. There is a groundglass nodule in the LEFT lo wer lobe best seen on image 162 of series 3 measuring 17 mm. Not definitely present on prior studies but may have been obscured by acute edema. No additional suspicious nodules. Lungs: Lungs are hyperinflated with subpleural areas of fibrosis. Mild thickening and nodularity hanna g the pleural and fissures but no discrete nodule. Overall significant improvement in aeration since 01/12/2020 Heart: Prior CABG. No pericardial effusion. Mild enlargement of the heart with increased pericardial fat. Other findings: Dual lead LEFT subclavian cardiac pacer. Moderate atherosclerosis of the aorta. Pulmo nary arteries are enlarged with rapid tapering. Small mediastinal and hilar lymph nodes. These lymph nodes were present on 02/26/2020. Large hiatal hernia. No adrenal mass. Prior cholecystectomy. Mild ant erior wedging of T12. 20% compression fracture T7. Fractures are unchanged. CT/CT lung screening [id number] IMPRESSION: LUNG-RADS: 2-Benign Appearance or Behavior FOLLOW UP: 12 Month: Continue annual screening with LDCT OTHER FINDINGS (S MODIFIER): None.
== END 2021-01-26 07:57 | disposition home or self-care (01) ==
PROVIDERS: PCP Family Medicine; Visit Provider Internal Medicine Pulmonary Disease
DX: Z12.2 Encounter for screening for malignant neoplasm of respiratory organs (principal); Z87.891 Personal history of nicotine dependence; Z95.1 Presence of aortocoronary bypass graft; Z95.0 Presence of cardiac pacemaker; I70.0 Atherosclerosis of aorta; K44.9 Diaphragmatic hernia without obstruction or gangrene; Z90.49 Acquired absence of other specified parts of digestive tract
CPT/HCPCS: 71271

== ENCOUNTER 2021-01-29 13:08 | Outpatient (CLI) | payer MEDICARE, OTHER, SELFPAY | END 2021-01-29 13:09 | disposition home or self-care (01) | LOC: WOUND 13:09 | PROVIDERS: PCP Family Medicine; Visit Provider Thoracic Surgery (Cardiothoracic Vascular Surgery) | DX: Z09 Encounter for follow-up examination after completed treatment for conditions other than malignant neoplasm (principal); E11.9 Type 2 diabetes mellitus without complications | CPT/HCPCS: 99212 ==

== ENCOUNTER → 2021-04-09 11:05 | Outpatient (BNVA) | payer MEDICARE, OTHER, SELFPAY | PROVIDERS: PCP Family Medicine; Visit Provider Internal Medicine Cardiovascular Disease | DX: J44.9 Chronic obstructive pulmonary disease, unspecified (principal); Z20.822 Contact with and (suspected) exposure to COVID-19 | CPT/HCPCS: 87635 ==

== ENCOUNTER 2021-04-15 08:21 | Outpatient (CLI) | payer MEDICARE, OTHER, SELFPAY ==
--- NOTE | 2021-04-15 09:02 | PFTS_ITS ---
Date of Study:04/15/21 Date of Dictation: MECHANICS: Forced vital capacity (FVC) is normal. Forced expiratory volume in one second (FEV1) is reduced. FEV1/FVC is reduced. FLOW VOLUME LOOP: Reduced flow at all lung volumes with significant scooping. LUNG VOLUMES: Total lung capacity (TLC) is normal. Residual volume (RV) is increased. DIFFUSING CAPACITY FOR CARBON MONOXIDE: Moderately reduced. INTERPRETATION: The prebronchodilator spirometry is consistent with moderate obstruction. No postbronchodilator spirometry was performed. Lung volumes are consistent with air trapping. Gas exchange (DLCO) is moderately reduced. MTDD
== END 2021-04-15 08:22 | disposition home or self-care (01) ==
LOC: RT 08:23
PROVIDERS: PCP Family Medicine; Visit Provider Internal Medicine Pulmonary Disease
DX: J44.9 Chronic obstructive pulmonary disease, unspecified (principal)
CPT/HCPCS: 94010; 94726; 94729

== ENCOUNTER 2021-06-17 08:12 | Outpatient (CLI) | payer MEDICARE, OTHER, SELFPAY | END 2021-06-17 08:13 | disposition home or self-care (01) | LOC: WOUND 08:12 | PROVIDERS: PCP Family Medicine; Visit Provider Nurse Practitioner Family | DX: I96 Gangrene, not elsewhere classified (principal); E11.621 Type 2 diabetes mellitus with foot ulcer; L97.529 Non-pressure chronic ulcer of other part of left foot with unspecified severity; L97.421 Non-pressure chronic ulcer of left heel and midfoot limited to breakdown of skin; J44.9 Chronic obstructive pulmonary disease, unspecified; Z87.891 Personal history of nicotine dependence | CPT/HCPCS: 11042; G0463 ==

== ENCOUNTER 2021-06-24 10:36 | Outpatient (CLI) | payer MEDICARE, OTHER, SELFPAY | END 2021-06-24 10:37 | disposition home or self-care (01) | LOC: WOUND 10:37 | PROVIDERS: PCP Family Medicine; Visit Provider Nurse Practitioner Family | DX: I96 Gangrene, not elsewhere classified (principal); E11.621 Type 2 diabetes mellitus with foot ulcer; L97.529 Non-pressure chronic ulcer of other part of left foot with unspecified severity; L97.429 Non-pressure chronic ulcer of left heel and midfoot with unspecified severity; Z87.891 Personal history of nicotine dependence | CPT/HCPCS: G0463 ==

== ENCOUNTER → 2021-06-25 11:35 | Outpatient (BNVA) | payer MEDICARE, OTHER, SELFPAY | PROVIDERS: PCP Family Medicine; Referring Provider Internal Medicine Cardiovascular Disease; Visit Provider Internal Medicine Cardiovascular Disease | DX: Z01.818 Encounter for other preprocedural examination (principal); I73.9 Peripheral vascular disease, unspecified; Z20.822 Contact with and (suspected) exposure to COVID-19 | CPT/HCPCS: 80048; 85025; 85610; 87635 ==

== ENCOUNTER 2021-07-01 08:34 | Outpatient (CLI) | payer MEDICARE, OTHER, SELFPAY ==
--- NOTE | 2021-07-01 10:00 | PC.NURSE ---
Fluid Status After reviewing labs creatinine 1.3. Pt has CKD. Dr. Florez notified prior to peripheral angiogram procedure. Verbal orders received to given 500ml NS bolus. 500ml bolus started at this time.
[2021-07-01 10:04] VITALS: BP 89/44; PULSE 83; RESP 16; TEMP 37; O2SAT 94; BMI 28.8
[2021-07-01] MEDS: diphenhydrAMINE 50 mg Capsule PO (10:31)
--- NOTE | 2021-07-01 12:14 | PC.NURSE ---
to be rescheduled to the 15 at 830. pt acknowledged.
== END 2021-07-01 08:35 | disposition home or self-care (01) ==
LOC: CCL 08:40
PROVIDERS: PCP Family Medicine; Visit Provider Internal Medicine Cardiovascular Disease
DX: R07.9 Chest pain, unspecified (principal); L97.929 Non-pressure chronic ulcer of unspecified part of left lower leg with unspecified severity; I73.9 Peripheral vascular disease, unspecified; Z53.8 Procedure and treatment not carried out for other reasons
CPT/HCPCS: J7030; Q0163

== ENCOUNTER 2021-07-08 11:32 | Observation (INO) | payer MEDICARE, OTHER, SELFPAY ==
[2021-07-08] VITALS (36 sets, daily range): BP systolic 97–150; BP diastolic 53–88; PULSE 70–140; RESP 16–22; TEMP 36.1–36.9; O2SAT 90–97; BMI 28.8
--- NOTE | 2021-07-08 07:00 | XACV_ITS ---
Wt: 91 kg BSA: 2.14 m2 Any Known Allergies: No known allergies Gender: Male : 1945 Exam Type: Invasive Peripheral Vascular Procedure(s): Procedure Description: Peripheral Cath Diagnostic Procedure Procedure Description: Abdominal aortic angiography Procedure Description: Lower extremities' angiography Procedure Description: Peripheral vascular Intervention Procedure Description: PV Balloon Procedure Description: PV Atherectomy Exam Priority: Routine KHU2, Florez; Lower Extremity Interventional Findings Intervention: Intervention of left SFA was performed. After difficulty were able to cross with glide wire using seeker catheter through the long proximal to distal SFA highly calcified lesion. After confirming Glidewire in the posterior tibial vessel. Viper wire was exchanged for a Glidewire with the help of seeker. Using 2.0 bur multiple runoff arthrectomy were performed from ostial SFA to distal popliteal vessel. Multiple balloon angioplasties were performed please see the inventory. Excellent angiographic result with good flow was achieved in the left SFA, popliteal, tibioperoneal trunk and below the knee up to the foot.. Good almost three-vessel runoff was also noted below the knee.. For details of the instrument use including balloons wires please see the inventory in the main body of the note. Good anterior posterior tibial dopplerable pulses were noted soon after the intervention. Conclusions Indication for peripheral angiogram: Critical limb ischemiaRight common femoral approach was adopted to perform the peripheral angiogram Abdominal aorta: No significant stenosis or aneurysm noted bilateral common, internal and external iliac arter ies did not have any significant stenosis. Bilateral common femoral arteries has no significant stenosis, left profunda femoral artery subtotally occluded at the ostium. Left SFA is chronically occluded at the ostium no stump noted. Right profundofemoral artery has high-grade stenosis at the proximal segment. Right SFA is chronically occluded in proximal to distal segment, right popliteal artery has significant disease in the proximal segment. Bilateral tibioperoneal trunk has luminal irregularities. Below the knee on the left side anterior posterior tibial arteries are occluded in the mid segment and all diffusely diseased but fills with collaterals. Peroneal artery also has diffuse significant disease . null was treated with Balloon. null was treated with Balloon. null was treated with Balloon. Recommendations 1-Return to inpatient for close monitoring and routine cath care2-Risk factor modification for secondary prevention3-Statin and aspirin 81 mg life--long, if tolerated 4- C ontinue Plavix 75mg p.o. daily for at least three months, please follow up for stage angioplasty of totally occluded right SFA for lifestyle limiting claudication of the right leg. 5-Continue optimal medical management6-Follow up with Dr. Florez in four weeks and your primary care in 10 days. Hemodynamic Data Phase:Rest AO : 154.0 / 50.0 ( 88.0 ) @ 8:15:00 AM 162.0 / 58.0 ( 81.0 ) @ 8:19:00 AM 102.0 / 43.0 ( 60.0 ) @ 8:21:00 AM 78.0 / 25.0 ( 43.0 ) @ 8:27:00 AM 118.0 / 51.0 ( 79.0 ) @ 8:30:00 AM 124.0 / 51.0 ( 80.0 ) @ 8:43:00 AM Access Site Site: Right Femoral artery Sheath Size: 6 Fr Hemost... Method: Suture Hemost... Success: Successful Procedure Details Findings Procedure Consent Obtained. Pre-Procedure Time Out. Identified patient by full name and date of as verbalized by the patient/guarantor. Does the consent match the physician's order: Yes. Accurate & Complete Informed Consent: Yes. Inpatient/Outpatient History & Physical on Chart: Yes. If H&P is completed, is and addenduem needed: N/A; If yes, is the addendum complete: N/A. Visualize and Verify Site with Patient/Guarantor: N/A. Relevant Radiology Images available: N/A. Pre-op teaching completed and patient verbalized understanding. The risks, benefits, and alternatives of sedation and/or procedure were discussed by physician. The patient agrees to continue. Procedure started. PERRLA. Strong, equal hand donor center technician bilaterally. Lungs clear x 5 lobes. Current diagnosis: PVD. IV Site on Arrival: 20 gauge in the left anticubital. IV Fluids: 0.9% NaCl at KVO. 500 mL infused prior to oven laborer. Pre Procedural Pulses: bilateral dorsalis pedis was Doppled. Oxygen started at 2liters/min via nasal canula. right groin was prepped with chloroprep then draped in the usual sterile fashion. left groin was prepped with chloroprep then draped in the usual sterile fashion. Baseline sample Acquired. HR: 70 BPM. Physician notified. Baseline sample Acquired. HR: 70 BPM. Physician arrived. Physician scrubbed in. Time out performed with cath team. Lidocaine 1% infiltrated to the right groin. Admit Source: Out Patient. Arterial access obtained with micropuncture set. Glidewire inserted. A 5FrFr UF catheter in over wire. Abdominal aortogram performed in [place] @ 10 mL/sec for a total of 30 mL. UF repositioned below bifurcation to reposition wire to proximal SFA. Catheter out. Seeker catheter inserted over the wire. Faina Arellano employment and claims aide nurse during case. 6Fr short sheath exchanged for 6 Fr 45 cm Flexor sheath. Glidewire positioned to the profunda. Seeker seated in the profunda/SFA junction. Glidewire removed. Hand injection through the Seeker. Glidewire inserted. Seeker positioned in the tibial peronial trunk. Glidewire removed. Viper wire inserted to lower extremity collateral. 2.0 Orbital atherectomy device inserted. Orbital atherectomy performed to SFA. Orbital atherectomy device removed. Seeker removed. Seeker inserted and positioned in the tibial peroneal trunk. Viperwire removed. Glidewire inserted and positioned in the PT. Seeker removed. Inflation number : 1 A AB Bishop 35 ELECTRIC BLANKET PACKER Catheter [id number] was prepped and advanced across the Mid Superficial Femoral, Left , then inflated to 6 ROSALIA for 2:00 seconds. Inflation number: 1 The AB Bishop 35 ELECTRIC BLANKET PACKER Catheter [id number] was reinflated across the Proximal Superficial Femoral, Left, to 10 ROSALIA for 2:01 seconds. Balloon inserted over the wire to the superficial femoral. Balloon out. Balloon inserted over the wire to the ostial superficial femoral. Inflation number : 1 A AB ARMADA 35 OTW [id number] was prepped and advanced across the Ostial Superficial Femoral, Left , then inflated to 14 ROSALIA for 1:37 seconds. Balloon out. Sheath injected in Left common femoral artery and runoff performed. Second Glidewire inserted. Seeker inserted. Second Glidewire out and Seeker out. Seeker inserted. Hand injection through the Seeker performed. Glidewire positioned to the SFA. Seeker removed. Glidewire removed. 6Fr Flexor sheath exchanged for 6 Fr Short sheath. A Suture was successful obtaining hemostatsis at the Right Femoral artery insertion site. Post Procedure: Pulses reassessed and unchanged. PERRLA. Strong, equal hand donor center technician bilaterally. No VTE prophylaxis required. Medication's Wasted: Heparin = 3000 u. Medication's Wasted: Nitro = 49.6 mg. Total IV fluids: 133 mL. Post-op diagnosis: Obstructive PVD. Complications: none. Estimated blood loss: 5mL-10mL. Responsiveness - Normal response to verbal stimuli; alert and oriented, PERRLA. Airway - Unaffected, no intervention required; spontaneous ventilation. Circulation: W/N/L, pulses unchanged. Nausea/Vomiting: No. Procedure completed. Patient transferred by bed to 1st floor. Vital chart was stopped. Procedure Medications Start: 9:08 AM Stop: 9:08 AM Medication: Fentanyl Amount: 50 mcg Route: I.V. Start: 9:08 AM Stop: 9:08 AM Medication: Versed Amount: 1 mg Route: I.V. Start: 9:19 AM Stop: 9:19 AM Medication: Versed Amount: 1 mg Route: I.V. Start: 9:28 AM Stop: 9:28 AM Medication: Fentanyl Amount: 50 mcg Route: I.V. Start: 9:36 AM Stop: 9:36 AM Medication: Heparin Amount: 5000 units Route: I.V. Start: 9:37 AM Stop: 9:37 AM Medication: Versed Amount: 0.5 mg Route: I.V. Start: 9:44 AM Stop: 9:44 AM Medication: Versed Amount: 0.5 mg Route: I.V. Start: 9:44 AM Stop: 9:44 AM Medication: Fentanyl Amount: 25 mcg Route: I.V. Start: 9:53 AM Stop: 9:53 AM Medication: Versed Amount: 1 mg Route: I.V. Start: 9:53 AM Stop: 9:53 AM Medication: Fentanyl Amount: 25 mcg Route: I.V. Start: 10:06 AM Stop: 10:06 AM Medication: Heparin Amount: 2000 units Route: I.V. Start: 10:07 AM Stop: : AM Medication: Fentanyl Amount: 50 mcg Route: I.V. Start: 10:19 AM Stop: 10: AM Medication: Nitrogylcerin Amount: 400 mcg Route: I.A. Start: 10:26 AM Stop: : AM Medication: Versed Amount: 1 mg Route: I.V. I, the attending physician, have reviewed and verified all procedure medications. Yes, all medications given per verbal order History/Risk Factors Hypertension: Yes Dyslipidemia: Yes Peripheral Arterial Disease (PAD): Yes Obesity: No Renal Disease: No Tobacco Use: Former Prior Interventions PCI: No CABG: No Valve Surgery: No Report Signatures Finalized by Jose Raul Florez MD on 07/14/2021 07:01 PM
[2021-07-08] MEDS: diphenhydrAMINE 50 mg Capsule PO (07:52)
[2021-07-08 07:53] LABS: Anion Gap 19.4 (5-19); Blood Urea Nitrogen 39 mg/dL (8-23); Calcium 8.9 mg/dL (8.5-10.5); Carbon Dioxide 23 mmol/L (22-29); Chloride 100 mmol/L (98-107); Glucose 110 mg/dL (65-115); Osmolality Calculated 296 mOsm/kg (285-295); Potassium 4.4 mmol/L (3.5-5.1); Sodium 138 mmol/L (136-145)
--- NOTE | 2021-07-08 09:03 | W.PM.OPSUD ---
Surgery/Procedure H&P Update DATE OF PROCEDURE: July 08, 2021 DATE H&P PERFORMED: 06/09/21 H&P UPDATE INFORMATION: I have reviewed H&P completed within last 30 days, I have examined patient prior to procedure and No changes to prior documentation PREOP DIAGNOSIS: Critical limb ischemia, nonhealing ulcer of left foot PLANNED PROCEDURE: Operation Date: 07/08/21 08:30 Proposed Procedures p Peripheral Diagnostic(Not Applicable) - Jose Raul Florez MD PATIENT REASSESSED PRIOR TO SEDATION, WITH NO CHANGE NOTED: Yes PHYSICAL EXAM: alert, oriented x 3 and clear to auscultation bilaterally AIRWAY EVAL/ANESTHESIA PLAN: ASA II and Risks, benefits & alternatives of sedation and/or procedure discussed ADDITIONAL INFORMATION: Patient has been explained all risk benefit and alternative for the procedure by myself. Patient understand risk for contrast-induced nephropathy renal failure temporary or permanent dialysis major minor bleed vascular injury acute leg ischemia leading to amputation, patient understand risk for pseudoaneurysm hematoma worse case scenario . He would like to proceed with it. Patient has been consented for drug-coated balloon application. He understand FDA warning regarding increased mortality rate in the subset.
--- NOTE | 2021-07-08 11:30 | PC.NURSE ---
Pt transferred from cath lab tech to room 102 at approximately 1115. Pt had sheath to right groin connected to pressure bag. No hematoma, swelling or bleeding noted. Pts distal pulses palpable. Pt had no c/o pain or discomfort at the present time. Call light in reach.
--- NOTE | 2021-07-08 11:32 | PC.NURSE ---
Pt teaching was given on continuing to lay flat and to keep right leg flat and still. Pt verbalized understanding.
[2021-07-08] MEDS: sodium chloride 0.9% 1,000 ML 100 ML IV (12:33)
[2021-07-08] MEDS: montelukast sodium 10 mg Tablet PO (12:34)
[2021-07-08] MEDS: famotidine 20 mg Tablet PO (12:35)
[2021-07-08] MEDS: clopidogrel 75 mg Tablet PO (12:35)
[2021-07-08] MEDS: atorvastatin 40 mg Tablet PO (12:35)
[2021-07-08] MEDS: finasteride 5 mg Tablet PO (12:35)
[2021-07-08] MEDS: aspirin 81 mg EC Tablet PO (12:35)
[2021-07-08 16:08] LABS: Partial Thromboplastin Time 20.1 SECONDS (23.9-36.7)
[2021-07-08] MEDS: carvedilol 3.125 mg Tablet PO (17:13)
[2021-07-08] MEDS: fentaNYL 50 mcg/mL INJ 2mL IVP (19:01)
--- NOTE | 2021-07-08 19:20 | PC.NURSE ---
Cardiac sheath was pulled at approximately 1850. Pt was instructed once again on the importance of keeping leg still and flat. During the sheath pull pt was continually moving and lifting right leg. Pt was quickly redirected each time pt would move leg. Direct pressure was held for 20 minutes at sheath site after sheath removal. Small hematoma developed at sheath site d/t pts movement approximately 1 inch in diameter. Drsg was placed over site dry and intact. Reported to PM shift nurse RAMÍREZ Trimble of pts hematoma. Pt c/o pain and pain medication given by on coming nurse. Pt now lying in bed resting. No further c/o pain or discomfort. Will cont to monitor. Call light in reach.
--- NOTE | 2021-07-08 19:41 | PC.NURSE ---
Received report from RAMÍREZ Muse. Patient is s/p peripheral angiogram without stenting. RAMÍREZ Muse pulling sheath at time of report. Patient had developed small hematoma with pain present. Administered Fentnyl as ordered. Patient reports pain relief at this time. Hematoma appears to be smaller and softer to palpation. Patient denies pain directly to site. Dressing in place remains c,d,i. No further bleeding complications observed. Discussed plan for the night. Patient verbalized complete understanding. No distress observed.
--- NOTE | 2021-07-08 22:59 | PC.NURSE ---
Dressing to right groin remains c,d,i with no s/s of bleeding noted. Previous hematoma has resolved. Dr Florez in to see patient. Patient denies any pain or needs. No distress observed. Will continue to monitor.
[2021-07-08] MEDS: HYDROcodone-acetaminophen 5-325 mg Tablet 1 TAB PO (23:39)
--- NOTE | 2021-07-08 23:42 | PC.NURSE ---
Addendum entered by Nai Connor RN 07/08/21 23:55: VS remain wnl. VS trend printed and placed in patient's chart. Original Note: Right groin remain c,d,i with no s/s of bleeding observed. Patient has palpable pulses to bilateral lower extremities with both warm to touch. Patient does c/o pain to right leg 01/01 stating, I have to lie flat for a couple more hours. I am just having pain from lying in one spot for so long. Assisted patient with positioning of leg and he reports feeling much better with this. Administered pain medication as ordered. No other distress observed.
[2021-07-09 03:13] LABS: Basophils # 0.1 10^3/uL (0.0-0.1); Basophils % 0.4 %; Eosinophils # 0.2 10^3/uL (0.0-0.8); Eosinophils % 1.8 %; Hematocrit 34.8 % (42.0-52.0); Hemoglobin 11.6 g/dL (11.7-16.6); Lymphocytes # 1.9 10^3/uL (0.8-4.8); Lymphocytes % 16.7 %; Mean Corpuscular HGB Conc 33.3 g/dL (30.0-36.0); Mean Corpuscular Hemoglobin 30.3 pg (28.0-34.0); Mean Corpuscular Volume 90.9 fl (80-94); Mean Platelet Volume 9.6 fL (7.4-10.4); Monocytes # 0.8 10^3/uL (0.2-0.9); Neutrophils # 8.36 10^3/uL (1.8-7.7); Neutrophils % 73.7 %; Nucleated Red Blood Cells % 0 %; Platelet Count 231 10^3/cmm (130-400); Red Blood Count 3.83 10^6/uL (4.1-5.3); Red Cell Distribution Width 13.7 % (12.1-15.1); White Blood Count 11.3 10^3/uL (4.0-10.0)
[2021-07-09 03:34] LABS: Anion Gap 18.5 (5-19); Blood Urea Nitrogen 30 mg/dL (8-23); Calcium 8.3 mg/dL (8.5-10.5); Carbon Dioxide 21 mmol/L (22-29); Chloride 104 mmol/L (98-107); Glucose 102 mg/dL (65-115); Osmolality Calculated 294 mOsm/kg (285-295); Potassium 4.5 mmol/L (3.5-5.1); Sodium 139 mmol/L (136-145)
[2021-07-09 04:29] VITALS: PULSE 103
--- NOTE | 2021-07-09 06:01 | PC.NURSE ---
Shift Note Frequent safety and comfort rounds continue. Orders and/or nursing care completed as indicated. Patient monitored for response to intervention and treatment(s). Education provided includes post peripheral angiogram site care and restrictions. Patient verbalized complete understanding. Dressing to right groin remain c,d,i with no s/s of bleeding. Small hematoma from shift change is resolved. Patient does c/o mild tenderness to site with palpation. Patient denies pain or needs. No distress observed. Will continue to monitor.
[2021-07-09] MEDS: clopidogrel 75 mg Tablet PO (08:24)
[2021-07-09] MEDS: carvedilol 3.125 mg Tablet PO (08:24)
[2021-07-09] MEDS: montelukast sodium 10 mg Tablet PO (08:24)
[2021-07-09] MEDS: famotidine 20 mg Tablet PO (08:24)
[2021-07-09] MEDS: finasteride 5 mg Tablet PO (08:24)
[2021-07-09] MEDS: aspirin 81 mg EC Tablet PO (08:24)
[2021-07-09] MEDS: atorvastatin 40 mg Tablet PO (08:27)
--- NOTE | 2021-07-09 09:07 | PC.CHAP ---
Pastoral Care Encounter/Spiritual Assessment Type of Contact [] Declined sledger visit [] Patient/Family/Request visit [] Outpatient visit [] Follow-up visit [] Physician referral [] Code/Alert [x] Routine visit [] Staff referral [] Actively dying [] Patient sleeping [] Family support [] [] Out of room [] Palliative care [] [x] Receiving care in room [] Pre-surgical visit [] Trauma [] Long length of stay [] ICU visit [] Other: Relational/Emotional Strength [x] Patient feels connected with others/family/visitors/staff [] Distress [] Loneliness/isolation [] Abandonment Spirituality of Patient [x] Person of Kayla [] Attends Shinto of their Kayla [x] Believes in Prayer [] Reads Bible or Pentecostalism materials [] There are Spiritual issues to be addressed Casualty Insurance Claim Adjuster Interventions [x] Prayer [x] Active listening [x] Non-anxious presence [x] Spiritual/emotional support [] Crisis/trauma care [x] Spiritual counseling [] Bereavement support [] Provided bereavement packet [] Provided Bible/devotional materials [] Provided toy/stuffed animal, coloring book to patient or family member [] Provided Communion [] Anointing/Vian [] Salvation [x] Completed spiritual assessment [] Other: Impact on Illness or Injury [] Angry [] Fearful [x] Anxious [] Often cries [] Exhaustion [x] Unable to work [] Unable to attend mormonism [] Unable to walk/stand [] Unable to read [] Unable to drive [] Unable to eat/drink [] Unable to sleep [] Unable to be with family [] Patient intubated [] Other: Summary removed blood clots feeling better is going home today has a good attitude Time spent with patient
--- NOTE | 2021-07-09 14:22 | PM.SDS ---
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 He underwent peripheral angiogram noted to have chronically occluded SFA treated with atherectomy and balloon angioplasty excellent angiographic result with good flow was achieved and SFA with good two-vessel runoff below the left knee. He was also noted to have chronically occluded right SFA. Patient will be brought back after 2 to 3 weeks for right SFA intervention. He has good pulses in the left foot he denies any complaint he is walking around without any difficulty. Right groin looks good without any hematoma. He has been discharged home. Review of Systems Eyes: Denies: photophobia All/Imm: Denies: acute wheezing Home Meds/Allergies Home Medications and Allergies Home Medications Medication Instructions Recorded Confirmed Type atorvastatin 40 mg PO DAILY 01/07/20 07/08/21 History famotidine 20 mg PO DAILY 01/07/20 07/08/21 History garlic 1,000 mg PO DAILY 01/07/20 07/08/21 History metformin 500 mg PO BID 01/07/20 07/08/21 History montelukast 10 mg PO DAILY 01/07/20 07/08/21 History multivitamin [Multiple Vitamins] 1 tab PO DAILY 01/07/20 07/08/21 History omega 8-lzx-cov-fish oil [Fish Oil] 1 cap PO DAILY 01/07/20 07/08/21 History albuterol sulfate 90 mcg/actuation 1 inh INHALATION DAILY gm 03/03/20 07/08/21 History aerosol inhaler finasteride 5 mg tablet 5 mg PO DAILY tab 03/07/20 07/08/21 History Trelegy Ellipta 1 inh INHALATION DAILY 11/18/20 07/08/21 History vitamin B complex 1 tab PO DAILY 12/08/20 07/08/21 History fluticasone propionate 50 1 spray INTRANASAL DAILY PRN 02/02/21 07/08/21 History mcg/actuation nasal spray,suspension Allergies Allergy/AdvReac Type Severity Reaction Status Date / Time No Known Allergies Allergy Verified 07/08/21 08:29 PFSH Acute PFSH: Medical History CAD (coronary artery disease) -follows up with Dr. Florez -s/p CABG Chronic anemia -baseline Hg around 10 Chronic kidney disease CKD (chronic kidney disease) stage 2, GFR 60-89 ml/min -baseline Cr wnl Congestive heart failure COPD (chronic obstructive pulmonary disease) Fracture, femoral HTN (hypertension) Non-insulin dependent diabetes mellitus -A1c-5.9 -accuchecks, ISS, hypoglycemia precautions -hold metformin -anticipate hyperglycemia with steroid use and acute illness -consistent carb diet as tolerated Obesity -BMI-31 kg/m2 DARIUS (obstructive sleep apnea) -CPAP qhs Peripheral arterial disease Surgical History Hx of CABG Hx of cholecystectomy Family History Mother CAD (coronary artery disease) Social History Quit status (tobacco): has quit using tobacco Year quit tobacco: 2014 - 1ppd x 60 Second hand smoke exposure: No Smoking risk assessment/counseling performed?: Yes Alcohol intake: never Lives independently: Yes Household members: spouse Marital status: Current occupational status: retired History of recent travel: No Current gender identity: Male Dietary Habits: Current diet type/program: regular Caffeine: No Vitals/I&O/Wt Last Vital Signs Temp 97.6 F 07/08/21 16:00 Pulse 103 H 07/09/21 04:29 Resp 20 H 07/08/21 23:00 BP 120/58 07/08/21 23:00 Pulse Ox 97 07/08/21 16:00 07/08/21 07/09/21 07/09/21 22:59 06:59 14:59 Intake Total 920 / 1165 240 / 1405 720 / 720 Output Total 650 / 650 450 / 1100 250 / 250 Balance 270 / 515 -210 / 305 470 / 470 Weight last 48 hrs Weight 201 lb Physical Exam Narrative: EXAM NARRATIVE: GENERAL: Patient is alert, awake and oriented x3. NECK: No jugular vein distension. HEENT: No cyanosis. No icterus. No pallor. HEART: Regular S1 and S2. No murmur, rub or gallop. LUNGS: Clear to auscultate bilaterally. ABDOMEN: Soft, nontender and nondistended. Positive bowel sounds. No guarding, rebound or tenderness. CENTRAL NERVOUS SYSTEM: Grossly nonfocal. EXTREMITIES: Lower extremities without edema bilaterally. Pulses palpable in the left lower extremities, both dorsalis pedis and posterior tibial. Const: COMMON NORMALS: alert Resp: COMMON NORMALS: clear to auscultation bilaterally AUSCULTATION: clear to auscultation bilaterally Neuro: SENSORIUM/ORIENTATION: Yes alert SSS Data Data Completed and Pending: Pending at discharge Category Date Time Status RAMP SUPERVISOR request for service Routin e Exams 07/08/21 07:00 Taken Discharge Plan Discharge Patient Disposition: Home Condition: Stable Prescriptions: Continued finasteride 5 mg tablet 5 mg PO DAILY RF: 0 albuterol sulfate [Ventolin HFA] 90 mcg/actuation HFA aerosol inhaler 1 inh INHALATION DAILY RF: 0 vitamin B complex [B Complex-Vitamin B12] Tablet 1 tab PO DAILY RF: 0 clopidogrel 75 mg tablet 75 mg PO DAILY Qty: 90 RF: 3 carvedilol [Coreg] 3.125 mg tablet 3.125 mg PO BID Qty: 180 RF: 3 lisinopril 5 mg tablet See Rx Instructions .ROUTE .COMPLEX Qty: 90 RF: 3 aspirin [Adult Aspirin Regimen] 81 mg tablet,delayed release (DR/EC) 81 mg PO DAILY Qty: 90 RF: 4 multivitamin [Multiple Vitamins] Tablet 1 tab PO DAILY RF: 0 atorvastatin 40 mg tablet 40 mg PO DAILY RF: 0 garlic 1,000 mg Capsule 1,000 mg PO DAILY RF: 0 famotidine 20 mg Tablet 20 mg PO DAILY RF: 0 montelukast 10 mg tablet 10 mg PO DAILY RF: 0 metformin 500 mg tablet extended release 24 hr 500 mg PO BID RF: 0 omega 9-ukh-izt-fish oil [Fish Oil] 1,000 mg (120 mg-180 mg) Capsule 1 cap PO DAILY RF: 0 fluticasone propionate 50 mcg/actuation spray,suspension 1 spray INTRANASAL DAILY PRN (Reason: Dry Nasal Passages) RF: 0 Trelegy Ellipta 100-62.5-25 mcg Blister With Device 1 inh INHALATION DAILY RF: 0 Discharge Orders: Discharge Order (Routine); Ordered 07/09/21 Ordered By: Jose Raul Florez Referrals: Jose Raul Florez MD [Physician] - 08/13/21 2:30 pm ( Your December [address] Florez has been changed You have a cardiology followup with Dr. Florez at [facility] on August 13 at 2:30pm) Kalani Mckeon FNP [Nurse Practitioner] - 07/15/21 10:00 am (You have a post procedure followup with RENE Castrejon at [facility] on july 15 at 10:15am) Discharge Diet: Cardiac Patient Instructions: Peripheral Vascular Angioplasty (DC), Opioid Safety, Post Angiogram Home Care Instructions Activity Restrictions/Additional Instructions: Follow-up with Ms. Kalani Mckeon in 7 days. Follow-up with Dr. Florez in 4 weeks Attestations Medical Necessity Statement*: Patient can be discharged home today. Time Spent in Patient Care*: less than 30 min Status at Discharge: Cognitive status at discharge: other (sedated), Quality Metrics Clinical Quality Measures: During this hospital stay, did patient experience: None Coding Level of Care Code Established Pt Acute Post Tronic Machine Operator for Chg Fwd Patient Type Established History Detailed Exam Detailed Medical Decision Making Moderate Complexity
[2021-07-09 15:10] VITALS: BP 126/59; PULSE 78; RESP 18
--- NOTE | 2021-07-09 15:28 | PC.NURSE ---
Discharge Note Patient discharged to Home via private vehicle accompanied by Spouse. Discharge instructions reviewed with patient and/or medical claims representative. Mobile pharmacy medications and/or prescriptions provided. Belongings/home medications returned.
== END 2021-07-09 15:30 | disposition home or self-care (01) ==
LOC: CSU 11:33
PROVIDERS: Admitting Provider Internal Medicine Cardiovascular Disease; PCP Family Medicine; Visit Provider Internal Medicine Cardiovascular Disease
DX: E11.621 Type 2 diabetes mellitus with foot ulcer (principal); I70.222 Atherosclerosis of native arteries of extremities with rest pain, left leg; I12.9 Hypertensive chronic kidney disease with stage 1 through stage 4 chronic kidney disease, or unspecified chronic kidney disease; E11.22 Type 2 diabetes mellitus with diabetic chronic kidney disease; N18.31 Chronic kidney disease, stage 3a; J44.9 Chronic obstructive pulmonary disease, unspecified; Z87.891 Personal history of nicotine dependence; Z95.1 Presence of aortocoronary bypass graft; Z79.82 Long term (current) use of aspirin; Z79.84 Long term (current) use of oral hypoglycemic drugs; I25.10 Atherosclerotic heart disease of native coronary artery without angina pectoris
CPT/HCPCS: 36415; 37225; 75625; 75716; 80048; 85025; 85730; C1724; C1725; C1769; C1887; C1894; G0378; J1644; J2250; J3010; J3490; J3535; J7030; Q0163; Q9967

== ENCOUNTER 2021-07-15 13:13 | Outpatient (CLI) | payer MEDICARE, OTHER, SELFPAY | END 2021-07-15 13:14 | disposition home or self-care (01) | LOC: WOUND 13:16 | PROVIDERS: PCP Family Medicine; Visit Provider Nurse Practitioner Family | DX: I96 Gangrene, not elsewhere classified (principal); E11.621 Type 2 diabetes mellitus with foot ulcer; L97.529 Non-pressure chronic ulcer of other part of left foot with unspecified severity; L97.421 Non-pressure chronic ulcer of left heel and midfoot limited to breakdown of skin; Z87.891 Personal history of nicotine dependence; L97.519 Non-pressure chronic ulcer of other part of right foot with unspecified severity; N18.31 Chronic kidney disease, stage 3a | CPT/HCPCS: 11042; 80048 ==

== ENCOUNTER → 2021-07-20 10:00 | Outpatient (BNVA) | payer MEDICARE, OTHER, SELFPAY | PROVIDERS: PCP Family Medicine; Visit Provider Internal Medicine Cardiovascular Disease | DX: I10 Essential (primary) hypertension (principal); I73.9 Peripheral vascular disease, unspecified; Z95.1 Presence of aortocoronary bypass graft | CPT/HCPCS: 80048 ==

== ENCOUNTER 2021-07-22 10:31 | Outpatient (CLI) | payer MEDICARE, OTHER, SELFPAY | END 2021-07-22 10:32 | disposition home or self-care (01) | LOC: WOUND 10:32 | PROVIDERS: PCP Family Medicine; Visit Provider Nurse Practitioner Family | DX: E11.621 Type 2 diabetes mellitus with foot ulcer (principal); L97.522 Non-pressure chronic ulcer of other part of left foot with fat layer exposed; L97.422 Non-pressure chronic ulcer of left heel and midfoot with fat layer exposed; L97.512 Non-pressure chronic ulcer of other part of right foot with fat layer exposed; I87.2 Venous insufficiency (chronic) (peripheral); J44.9 Chronic obstructive pulmonary disease, unspecified; Z87.891 Personal history of nicotine dependence | CPT/HCPCS: 11042 ==

== ENCOUNTER 2021-07-29 14:14 | Outpatient (CLI) | payer MEDICARE, OTHER, SELFPAY | END 2021-07-29 14:15 | disposition home or self-care (01) | LOC: WOUND 14:15 | PROVIDERS: PCP Family Medicine; Visit Provider Thoracic Surgery (Cardiothoracic Vascular Surgery) | DX: I96 Gangrene, not elsewhere classified (principal); E11.621 Type 2 diabetes mellitus with foot ulcer; L97.529 Non-pressure chronic ulcer of other part of left foot with unspecified severity; L97.421 Non-pressure chronic ulcer of left heel and midfoot limited to breakdown of skin; L97.512 Non-pressure chronic ulcer of other part of right foot with fat layer exposed; J44.9 Chronic obstructive pulmonary disease, unspecified; Z87.891 Personal history of nicotine dependence | CPT/HCPCS: 97597 ==

== ENCOUNTER 2021-08-05 09:35 | Outpatient (CLI) | payer MEDICARE, OTHER, SELFPAY | END 2021-08-05 09:36 | disposition home or self-care (01) | LOC: WOUND 09:36 | PROVIDERS: PCP Family Medicine; Visit Provider Thoracic Surgery (Cardiothoracic Vascular Surgery) | DX: E11.621 Type 2 diabetes mellitus with foot ulcer (principal); L97.829 Non-pressure chronic ulcer of other part of left lower leg with unspecified severity; L97.421 Non-pressure chronic ulcer of left heel and midfoot limited to breakdown of skin; L97.512 Non-pressure chronic ulcer of other part of right foot with fat layer exposed; I73.9 Peripheral vascular disease, unspecified; J44.9 Chronic obstructive pulmonary disease, unspecified; Z87.891 Personal history of nicotine dependence | CPT/HCPCS: 11042; 97597 ==

== ENCOUNTER → 2021-08-06 11:28 | Outpatient (BNVA) | payer MEDICARE, OTHER, SELFPAY | PROVIDERS: PCP Family Medicine; Referring Provider Internal Medicine Cardiovascular Disease; Visit Provider Internal Medicine Cardiovascular Disease | DX: I73.9 Peripheral vascular disease, unspecified (principal); I44.30 Unspecified atrioventricular block; Z20.822 Contact with and (suspected) exposure to COVID-19 | CPT/HCPCS: 80048; 85025; 87635 ==

== ENCOUNTER 2021-08-12 11:49 | Observation (INO) | payer MEDICARE, OTHER, SELFPAY ==
[2021-08-12] VITALS (40 sets, daily range): BP systolic 122–158; BP diastolic 53–104; PULSE 70–97; RESP 13–27; TEMP 36.4–36.8; O2SAT 93–100; BMI 28.3
--- NOTE | 2021-08-12 06:53 | XACV_ITS ---
Wt: 89 kg BSA: 2.12 m2 Any Known Allergies: No known allergies Gender: Male : 1945 Exam Type: Invasive Peripheral Vascular Procedure(s): Procedure Description: Peripheral Cath Diagnostic Procedure Procedure Description: Iliac arterial aortic angiography Procedure Description: Lower extremities' angiography Procedure Description: Peripheral vascular Intervention Procedure Description: PV Balloon Procedure Description: PV Atherectomy Exam Priority: Routine KHU2, Florez; Lower Extremity Interventional Findings After somewhat difficulty with the help of seeker and Glidewire we were able to cross through proximal to distal SFA into the right peroneal vessel and then into the collateral. We then exchange through seeker seeker wire with a Glidewire. CSI atherectomy using 2.0 bur with multiple passes were performed from common right femoral to all the way into tibioperoneal trunk. Multiple balloon angioplasty of right common femoral, right SFA from proximal to distal segment using different balloon lengths and caliber were performed. Excellent angiographic result with good rastafari of flow noted in the right common femoral, SFA, popliteal, tibioperoneal trunk, anterior tibial vessel all the way to the foot proximal peroneal vessel which occluded in the mid and posterior tibial vessel which also occluded in the mid segment, a lot of collaterals were noted.. Please see inventory for balloons wires and instrument used. . Conclusions Reason for peripheral angiogram: Lifestyle limiting claudication of the right legSelective angiogram of the right common iliac was performed. Right common iliac, external iliac arteries patent, right internal iliac artery is not patent. Right common iliac has proximal highly calcified significant stenosis. Right profunda femoris is chronically occluded. Proximal right SFA is subtotally occluded and highly calcified. Mid to distal right SFA is highly calcified and chronically occluded after adductor canal there is high-grade long stenosis in the right SFA extending to right popliteal vessel with started reconstitution through faint collaterals from the proximal right SFA. Right tibioperoneal trunk is subtotally occluded. Proximal right anterior posterior tibial appeared to be occluded or due to scant contrast were not able to see the vessels clearly.. Selective angiogram of left leg was performed. Left external iliac, left common iliac, left SFA left popliteal and left tibioperoneal trunk was visualized. No significant stenosis were noted. Due to lack of contrast below the knee vessels were not well visualized. null was treated with three Balloon. Recommendations 1-Return to inpatient for close monitoring and routine cath care2-Risk factor modification for secondary prevention3-Statin and aspirin 81 mg life--long, if tolerated4-Continue Plavix 75mg p.o. daily for at least one year. We will assess at the end of one year again to continue if further or not5-Continue optimal medical management6-Follow up with Dr. Florez in four weeks and your primary care in 10 days. Hemodynamic Data Phase:Rest AO : 124.0 / 54.0 ( 75.0 ) @ 6:16:00 AM 128.0 / 58.0 ( 99.0 ) @ 6:31:00 AM Access Site Site: Left Femoral vein Sheath Size: 6 Fr Hemost... Method: Suture Hemost... Success: Successful Site: Right Femoral artery Sheath Size: 6 Fr Hemost... Method: Suture Hemost... Success: Successful Procedure Details Findings Procedure Consent Obtained. Pre-Procedure Time Out. Identified patient by full name and date of as verbalized by the patient/guarantor. Does the consent match the physician's order: Yes. Accurate & Complete Informed Consent: Yes. Inpatient/Outpatient History & Physical on Chart: Yes. If H&P is completed, is and addenduem needed: No; If yes, is the addendum complete: N/A. Visualize and Verify Site with Patient/Guarantor: N/A. Relevant Radiology Images available: N/A. Pre-op teaching completed and patient verbalized understanding. The risks, benefits, and alternatives of sedation and/or procedure were discussed by physician. The patient agrees to continue. Procedure started. Correct patient, site and procedure confirmed by cath team. PERRLA. Strong, equal hand web programmer bilaterally. Lungs clear x 5 lobes. IV Site on Arrival: 20 gauge in the right anticubital. Pre Procedural Pulses: right posterior tibial was Absent. Pre Procedural Pulses: left posterior tibial was Doppled. Pre Procedural Pulses: bilateral dorsalis pedis was Doppled. Oxygen started at 2liters/min via nasal canula. bilateral groins was prepped with chloroprep then draped in the usual sterile fashion. IV Fluids: 0.9% NaCl at KVO. 500 mL infused prior to laboratory director. Equipment: Peripheral. Cardiac Cath Pack. ACIST Manifold Kit Model BT 2000. Heparinized Saline (2 units/mL), 1000 mL bag. Physician notified. Baseline sample Acquired. HR: 103 BPM. Physician arrived. Physician scrubbed in. Time out performed with cath team. Lidocaine 1% infiltrated to the left groin. Arterial access obtained with micropuncture set. Side port of sheath attached to Normal Saline flush at KVO to maintain patency. A 5Fr RIM catheter in over glidewire. Catheter removed over the glide wire. Short 6 fr sheath exchanged for 45 cm 6 fr Flexor sheath. Inventory is CK 6 FR FLEXOR SHEATH 45CM. Long sheath out over wire. 8 fr sheath inserted over wire. This is venous not arterial. Sheath upsized to a 8 Fr. Wire out. Arterial access obtained with micropuncture set. A JJ 5F RIM 65 cm Diagnostic Catheter was advanced over the wire and used to advance wire into right SFA. Short 6 fr sheath exchanged for 45 cm 6 fr Flexor sheath. Right common iliac selected and arteriogram performed. Right common iliac selected and arteriogram performed. Side port of sheath attached to Normal Saline flush at KVO to maintain patency. SEEKER support catheter inserted over the wire. Glidewire out. Hand injection performed. Viper wire inserted. Seeker catheter out over Viper wire. Diamondback 360 Peripheral Orbital atherectomy 2.0mm device inserted over the Viper wire. Family updated. Orbital atherectomy performed in right common femoral artery. Orbital atherectomy performed in right common femoral artery. Orbital atherectomy performed in right common femoral artery. Orbital atherectomy performed in right SFA. Orbital atherectomy performed in right SFA. Orbital atherectomy performed in right SFA. Orbital atherectomy performed in right popliteal. Diamondback atherectomy device removed. Seeker catheter inserted over the viper wire. Viper wire out. [place] wire inserted. Catheter removed over the glide wire. Inflation number : 1 A AB [place] 35 CONTRACT ENGINEER Catheter [id number] was prepped and advanced across the Superficial Femoral, Right , then inflated to 2 ROSALIA for 0:28 seconds. Inflation number: 2 The AB [place] 35 CONTRACT ENGINEER Catheter [id number] was reinflated across the Superficial Femoral, Right, to 8 ROSALIA for 1:02 seconds. Inflation number: 3 The AB [place] 35 CONTRACT ENGINEER Catheter [id number] was reinflated across the Superficial Femoral, Right, to 8 ROSALIA for 1:04 seconds. Inflation number: 4 The AB [place] 35 CONTRACT ENGINEER Catheter [id number] was reinflated across the Superficial Femoral, Right, to 12 ROSALIA for 1:02 seconds. Balloon out over wire. Results checked. Seeker inserted over glidewire. Glidewire out. Viper wire inserted. Seeker removed over Viper wire. Inflation number : 5 A BARD Lutonix [id number] drug coated balloon was prepped and advanced across the Superficial Femoral, Right , then inflated to 12 ROSALIA for 2:03 seconds. Inflation number: 6 The BARD Lutonix [id number] drug coated balloon was reinflated across the Superficial Femoral, Right, to 12 ROSALIA for 1:02 seconds. Balloon out over wire. Results checked. Viper wire out. ACT drawn. Results 178 seconds. Therapeutic limits - pre-heparin administration 90-150 seconds and monitoring heparin during a vascular procedure >250 seconds. Standard wire inserted. Wire out. Glidewire inserted. Inflation number : 7 A AB [place] 35 OTW [id number] was prepped and advanced across the Superficial Femoral, Right , then inflated to 12 ROSALIA for 0:16 seconds. Inflation number: 8 The AB [place] 35 OTW [id number] was reinflated across the Superficial Femoral, Right, to 12 ROSALIA for 0:10 seconds. Inflation number: 9 The AB [place] 35 OTW [id number] was reinflated across the Superficial Femoral, Right, to 20 ROSALIA for 1:02 seconds. Inflation number: 10 The AB [place]ADA 35 OTW [id number] was reinflated across the Superficial Femoral, Right, to 12 ROSALIA for 1:02 seconds. Balloon out over wire. Results checked. Long 45 cm 6 fr flexor sheath exchanged for short 6 fr sheath. Wire out. A Left femoral angiogram was performed to determine safe placement of closure device. Physician scrubbed out. A Suture was successful obtaining hemostatsis at the Left Femoral vein insertion site. A Suture was successful obtaining hemostatsis at the Right Femoral artery insertion site. Sheath(s) sutured into position with 2-0 silk and sterile 4x4's and Op-site applied over the site. No oozing or signs and symptoms of hematoma noted. Arterial sheath flushed and connected to tranducer and pressure bag with heparinized saline. Post Procedure: Pulses reassessed and unchanged. PERRLA. Strong, equal hand web programmer bilaterally. No VTE prophylaxis required. Contrast type used: Visipaque 320 mgI/mL, 500 mL bottle. Post-op diagnosis: severe PVD. Complications: none. Medication's Wasted: Verapamil = 4 mg. Medication's Wasted: Nitro = 48.8 mg. Medication's Wasted: Heparin = 3000 units. Total IV fluids: 423 mL. Estimated blood loss: 5mL-10mL. Responsiveness - Normal response to verbal stimuli; alert and oriented, PERRLA. Airway - Unaffected, no intervention required; spontaneous ventilation. Circulation: W/N/L, pulses unchanged. Nausea/Vomiting: No. Procedure completed. Patient transferred by stretcher to CPRU. Vital chart was stopped. Procedure started. Procedure Medications Start: 7:10 AM Stop: 7:10 AM Medication: Fentanyl Amount: 50 mcg Route: I.V. Start: 7:27 AM Stop: 7:27 AM Medication: Versed Amount: 1 mg Route: I.V. Start: 7:27 AM Stop: 7:27 AM Medication: Fentanyl Amount: 50 mcg Route: I.V. Start: 7:42 AM Stop: 7:42 AM Medication: Versed Amount: 1 mg Route: I.V. Start: 7:44 AM Stop: 7:44 AM Medication: Versed Amount: 1 mg Route: I.V. Start: 7:44 AM Stop: 7:44 AM Medication: Fentanyl Amount: 25 mcg Route: I.V. Start: 8:06 AM Stop: 8:06 AM Medication: Versed Amount: 1 mg Route: I.V. Start: 8:06 AM Stop: 8:06 AM Medication: Fentanyl Amount: 25 mcg Route: I.V. Start: 8:23 AM Stop: 8:23 AM Medication: Versed Amount: 1 mg Route: I.V. Start: 8:23 AM Stop: 8:23 AM Medication: Fentanyl Amount: 25 mcg Route: I.V. Start: 8:34 AM Stop: 8:34 AM Medication: Heparin Amount: 6000 units Route: I.V. Start: 8:34 AM Stop: 8:34 AM Medication: Versed Amount: 1 mg Route: I.V. Start: 8:34 AM Stop: 8:34 AM Medication: Fentanyl Amount: 25 mcg Route: I.V. Start: 8:47 AM Stop: 8:47 AM Medication: Versed Amount: 1 mg Route: I.V. Start: 8:51 AM Stop: 8:51 AM Medication: Nitrogylcerin Amount: 400 mcg Route: I.A. Start: 8:57 AM Stop: 8:57 AM Medication: Heparin Amount: 2000 units Route: I.V. Start: 9:05 AM Stop: 9:05 AM Medication: Nitrogylcerin Amount: 400 mcg Route: I.A. Start: 9:08 AM Stop: 9:08 AM Medication: Versed Amount: 1 mg Route: I.V. Start: 9:17 AM Stop: 9:17 AM Medication: Nitrogylcerin Amount: 400 mcg Route: I.A. I, the attending physician, have reviewed and verified all procedure medications. Yes, all medications given per verbal order History/Risk Factors Hypertension: Yes Dyslipidemia: No Peripheral Arterial Disease (PAD): Yes Obesity: No Renal Disease: No Tobacco Use: Former Prior Interventions PCI: No CABG: Yes Valve Surgery: No Report Signatures Finalized by Jose Raul Florez MD on 08/25/2021 08:02 PM
--- NOTE | 2021-08-12 07:31 | W.PM.OPSFHP ---
Same Day Surgery H&P Indication for Procedure/HPI DATE OF PROCEDURE: August 12, 2021 CHIEF COMPLAINT/INDICATIONFOR SURGICAL PROCEDURE: Lifestyle limiting claudication of right leg PREOP DIAGNOSIS: Right side lifestyle limiting claudication of the leg. PLANNED PROCEDURE: Operation Date: 08/12/21 07:00 Proposed Procedures p Peripheral Diagnostic(Right) - Jose Raul Florez MD 76 male past medical history significant for peripheral arterial disease underwent intervention of the left SFA for critical limb ischemia nonhealing ulcer he is here for stage percutaneous angioplasty of the right SFA for lifestyle limiting claudication. Patient continues to feel worse as it is hindering the lifestyle. He has been explained all risk benefit and alternative for the procedure. He understand risk for acute limb ischemia major minor bleed vascular injury renal failure due to contrast infection hematoma. He would like to proceed with it. Medications/Allergies* Home Medications Medication Instructions Recorded Confirmed Type atorvastatin 40 mg PO DAILY 01/07/20 08/12/21 History famotidine 20 mg PO DAILY 01/07/20 08/12/21 History garlic 1,000 mg PO DAILY 01/07/20 08/12/21 History metformin 500 mg PO BID 01/07/20 08/12/21 History montelukast 10 mg PO DAILY 01/07/20 08/12/21 History multivitamin [Multiple Vitamins] 1 tab PO DAILY 01/07/20 08/12/21 History omega 2-lgs-xzd-fish oil [Fish Oil] 1 cap PO DAILY 01/07/20 08/12/21 History albuterol sulfate 90 mcg/actuation 1 inh INHALATION DAILY gm 03/03/20 08/12/21 History aerosol inhaler finasteride 5 mg tablet 5 mg PO DAILY tab 03/07/20 08/12/21 History Trelegy Ellipta 1 inh INHALATION DAILY 11/18/20 08/12/21 History vitamin B complex 1 tab PO DAILY 12/08/20 08/12/21 History fluticasone propionate 50 1 spray INTRANASAL DAILY PRN 02/02/21 08/12/21 History mcg/actuation nasal spray,suspension furosemide 20 mg tablet 20 mg PO DAILY 07/15/21 08/12/21 History Allergies/Adverse Reactions Allergy/AdvReac Type Severity Reaction Status Date / Time No Known Allergies Allergy Verified 08/12/21 06:59 Pertinent History/Comorbid Conditions* Medical History (Updated 07/10/21 @ 00:01 by ) CAD (coronary artery disease) -follows up with Dr. Florez -s/p CABG Chronic anemia -baseline Hg around 10 Chronic kidney disease CKD (chronic kidney disease) stage 2, GFR 60-89 ml/min -baseline Cr wnl Congestive heart failure COPD (chronic obstructive pulmonary disease) Fracture, femoral Hemoptysis -hemoptysis noted with continued drop in Hg (10.9--->8.8) -continue to monitor H/H closely and continue to hold AC; INR-1.04; has been off heparin x > 72 hrs -Consult by Dr. 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 Unable to lay flat for imaging and then decompensated and had to be intubated -pending ALMAS, ANCA, anti-dsDNA, SAUL; ESR-19, CRP-6.0, C3-106, C4-24 HTN (hypertension) Non-insulin dependent diabetes mellitus -A1c-5.9 -accuchecks, ISS, hypoglycemia precautions -hold metformin -anticipate hyperglycemia with steroid use and acute illness -consistent carb diet as tolerated Obesity -BMI-31 kg/m2 DARIUS (obstructive sleep apnea) -CPAP qhs Peripheral arterial disease Surgical History (Updated 03/09/20 @ 17:02 by Jose Raul Florez MD) Hx of CABG Hx of cholecystectomy Family History (Updated 01/07/20 @ 19:59 by Kev Dockery MD) CAD (coronary artery disease) Mother Social History Quit status (tobacco): has quit using tobacco Year quit tobacco: 2014 - 1ppd x 60 Second hand smoke exposure: No Smoking risk assessment/counseling performed?: Yes Alcohol intake: never Lives independently: Yes Household members: spouse Marital status: Current occupational status: retired History of recent travel: No Current gender identity: Male Pertinent Exam Findings alert, oriented x 3 and clear to auscultation bilaterally Conscious Sedation Assessment PATIENT ASSESSED PRIOR TO SEDATION, WITH NO CHANGE NOTED: Yes AIRWAY EVAL/ANESTHESIA PLAN: ASA II and Risks, benefits & alternatives of sedation and/or procedure discussed Recommendations Surgery/Procedure today Coding Level of Care Code Acute Firearms Assembly Supervisor for Angelika Mckenzie
--- NOTE | 2021-08-12 09:35 | PC.NURSE ---
Received patient from labor delivery specialist and placed in CPRU 4. Pt has left groin arterial and venous sheaths. Dressings are dry and intact. Sites palpated with no signs of bleeding/hematoma. Pt and educated on BR and limitations of left leg. Pt placed on bedside cardiac rehabilitation specialist, denies pain at this time. Verbal orders received from Dr. Florez for NS to infuse at 100ml/hr post procedure. Pt is awake and oriented, breathing even and non-labored on room air. Will continue to monitor.
--- NOTE | 2021-08-12 11:02 | PC.NURSE ---
Bed assignment received csu room 108. Report called to Fadi RN at this time.
--- NOTE | 2021-08-12 11:16 | PC.NURSE ---
Patient arrived from the lab aide, no hematoma or oozing is present at the site. Report received from RAMÍREZ Kaplan. Patient is alert and oriented. Patient has been educated about activity restriction and has no questions or concerns. Safety measures taken, patient aware of call tam use and signs/symptoms to notify the nurse about. Will continue to monitor.
[2021-08-12 13:05] LABS: Partial Thromboplastin Time 102.2 SECONDS (23.9-36.7)
[2021-08-12 15:28] LABS: Partial Thromboplastin Time 21.3 SECONDS (23.9-36.7)
[2021-08-12] MEDS: fentaNYL 50 mcg/mL INJ 2mL IVP (17:30)
[2021-08-12] MEDS: sodium chloride 0.9% 1,000 ML 100 ML IV (17:31)
[2021-08-12] MEDS: carvedilol 3.125 mg Tablet PO (17:32)
--- NOTE | 2021-08-12 17:50 | PC.NURSE ---
sheath pulled to left groin explained procedure to pt. premedicated pt with fentanyl prior to sheath pull. 6 fr sheath removed on left femoral artery. catheter tip intact. manual pressure held for 20 mins. no hematoma, swelling or bleeding noted. pedal pulses are palpable 2+ to 3+. activity restrictions educated to pt on bedrest and to notify nurse for any unusual pain, burning, wet sensation and pressure around the groin area. pt tolerated and verbalizes understanding. call light provided to pt.
--- NOTE | 2021-08-12 18:15 | PC.NURSE ---
venous sheath pulled no hematoma, bleeding or swelling. dressing applied to both punctures.
[2021-08-12 20:17] LABS: Glucose Point of Care 111 mg/dL (70-110)
[2021-08-13 03:43] LABS: Basophils # 0.1 10^3/uL (0.0-0.1); Basophils % 0.5 %; Eosinophils # 0.2 10^3/uL (0.0-0.8); Eosinophils % 1.8 %; Hematocrit 32.4 % (42.0-52.0); Hemoglobin 10.4 g/dL (11.7-16.6); Lymphocytes # 1.6 10^3/uL (0.8-4.8); Lymphocytes % 16.3 %; Mean Corpuscular HGB Conc 32.1 g/dL (30.0-36.0); Mean Corpuscular Hemoglobin 29.5 pg (28.0-34.0); Mean Platelet Volume 9.9 fL (7.4-10.4); Monocytes # 0.8 10^3/uL (0.2-0.9); Monocytes % 7.7 %; Neutrophils # 7.38 10^3/uL (1.8-7.7); Neutrophils % 73.3 %; Nucleated Red Blood Cells % 0 %; Platelet Count 235 10^3/cmm (130-400); Red Blood Count 3.52 10^6/uL (4.1-5.3); Red Cell Distribution Width 15.2 % (12.1-15.1); White Blood Count 10.1 10^3/uL (4.0-10.0)
[2021-08-13 03:54] VITALS: BP 122/42; PULSE 73; RESP 21; TEMP 37.1; O2SAT 96
[2021-08-13 04:05] LABS: Anion Gap 15.9 (5-19); Blood Urea Nitrogen 29 mg/dL (8-23); Carbon Dioxide 21 mmol/L (22-29); Chloride 107 mmol/L (98-107); Glucose 110 mg/dL (65-115); Osmolality Calculated 296 mOsm/kg (285-295); Potassium 3.9 mmol/L (3.5-5.1); Sodium 140 mmol/L (136-145)
[2021-08-13 05:35] VITALS: PULSE 70
[2021-08-13 06:41] LABS: Glucose Point of Care 103 mg/dL (70-110)
[2021-08-13 07:49] VITALS: BP 129/59; PULSE 74; O2SAT 95
--- NOTE | 2021-08-13 08:51 | PM.DCS ---
Discharge Providers Date of Admission: 08/12/21 11:49 Date of Discharge: August 13, 2021 Attending Provider at Admission: Jose Raul Florez MD Attending Provider at Discharge: Jose Raul Florez MD Primary Care Provider: Hema Hartman MD Reason for Visit Reason for Visit: 15274 /91056 I73.9 peripheral artery disease Hospital Course Hospital Course 76-year-old male past medical history significant for severe peripheral arterial disease hypertension hyperlipidemia coronary artery disease he is here for lifestyle limiting claudication of right leg. He was noted to have chronically occluded right SFA which were treated with CSI arthrectomy and balloon angioplasty with excellent angiographic result. Postop course remain uncomplicated. He has good pulses he denies any complaint he is walking around without any difficulty. Claudication has been resolved. He is on Plavix. Continue aspirin and statin Plavix. Continue to follow-up with primary care physician and cardiology. We will see him back in the clinic in 7 days. He is being discharged Physical Exam Narrative: EXAM NARRATIVE: GENERAL: Patient is alert, awake and oriented x3. NECK: No jugular vein distension. HEENT: No cyanosis. No icterus. No pallor. HEART: Regular S1 and S2. No murmur, rub or gallop. LUNGS: Clear to auscultate bilaterally. ABDOMEN: Soft, nontender and nondistended. Positive bowel sounds. No guarding, rebound or tenderness. CENTRAL NERVOUS SYSTEM: Grossly nonfocal. EXTREMITIES: Lower extremities without edema bilaterally. Discharge Data Data Completed and Pending: Pending at discharge Category Date Time Status ACUTE DIALYSIS REGISTERED NURSE request for service Routin e Exams 08/12/21 06:53 Taken Labs from last 24 hours 08/13/21 08/13/21 08/13/21 06:30 02:30 02:30 WBC 10.1 H RBC 3.52 L Hgb 10.4 L Hct 32.4 L MCV 92.0 MCH 29.5 MCHC 32.1 RDW 15.2 H Plt Count 235 MPV 9.9 Neut % (Auto) 73.3 Lymph % (Auto) 16.3 [place] % (Auto) 7.7 Eos % (Auto) 1.8 Baso % (Auto) 0.5 Neut # (Auto) 7.38 Lymph # (Auto) 1.6 [place] # (Auto) 0.8 Eos # (Auto) 0.2 Baso # (Auto) 0.1 Nucleated RBC % (a uto) 0 Nucleated RBCs # 0.0 APTT Sodium 140 Potassium 3.9 Chloride 107 Carbon Dioxide 21 L Anion Gap 15.9 BUN 29 H Creatinine 1.5 H GFR Calculation Not Reportable Glucose 110 POC Glucose 103 Calculated Osmolal ity 296 H Calcium 8.0 L 08/12/21 08/12/21 08/12/21 19:43 14:19 12:28 WBC RBC Hgb Hct MCV MCH MCHC RDW Plt Count MPV Neut % (Auto) Lymph % (Auto) [place] % (Auto) Eos % (Auto) Baso % (Auto) Neut # (Auto) Lymph # (Auto) [place] # (Auto) Eos # (Auto) Baso # (Auto) Nucleated RBC % (a uto) Nucleated RBCs # APTT 21.3 L D 102.2 H Sodium Potassium Chloride Carbon Dioxide Anion Gap BUN Creatinine GFR Calculation Glucose POC Glucose 111 H Calculated Osmolal ity Calcium Vitals: Last Vital Signs Temp 98.8 F 08/13/21 03:54 Pulse 74 08/13/21 07:49 Resp 21 H 08/13/21 03:54 BP 129/59 08/13/21 07:49 Pulse Ox 95 08/13/21 07:49 Discharge Plan Discharge Patient Disposition: Home Condition: Stable Prescriptions: Continued furosemide 20 mg tablet 20 mg PO DAILY RF: 0 finasteride 5 mg tablet 5 mg PO DAILY RF: 0 albuterol sulfate [Ventolin HFA] 90 mcg/actuation HFA aerosol inhaler 1 inh INHALATION DAILY RF: 0 vitamin B complex [B Complex-Vitamin B12] Tablet 1 tab PO DAILY RF: 0 clopidogrel 75 mg tablet 75 mg PO DAILY Qty: 90 RF: 3 carvedilol [Coreg] 3.125 mg tablet 3.125 mg PO BID Qty: 180 RF: 3 aspirin [Adult Aspirin Regimen] 81 mg tablet,delayed release (DR/EC) 81 mg PO DAILY Qty: 90 RF: 4 multivitamin [Multiple Vitamins] Tablet 1 tab PO DAILY RF: 0 atorvastatin 40 mg tablet 40 mg PO DAILY RF: 0 garlic 1,000 mg Capsule 1,000 mg PO DAILY RF: 0 famotidine 20 mg Tablet 20 mg PO DAILY RF: 0 montelukast 10 mg tablet 10 mg PO DAILY RF: 0 metformin 500 mg tablet extended release 24 hr 500 mg PO BID RF: 0 omega 1-vti-ufk-fish oil [Fish Oil] 1,000 mg (120 mg-180 mg) Capsule 1 cap PO DAILY RF: 0 fluticasone propionate 50 mcg/actuation spray,suspension 1 spray INTRANASAL DAILY PRN (Reason: Dry Nasal Passages) RF: 0 Trelegy Ellipta 100-62.5-25 mcg Blister With Device 1 inh INHALATION DAILY RF: 0 Discharge Orders: Discharge Order (Routine); Ordered 08/13/21 Ordered By: Jose Raul Florez Referrals: Marvin Garcia M.D [Physician] - 02/15/22 1:00 pm (You have a cardiology followup with Dr. Garcia at [facility] on February 15 at 1:00pm) Jose Raul Florez MD [Physician] - 08/27/21 2:15 pm (You have a post procedure followup with Dr. Florez at [facility] on August 27 at 2:15pm) Discharge Diet: Cardiac Patient Instructions: Peripheral Vascular Angioplasty (DC), Opioid Safety, Post Angiogram Home Care Instructions Activity Restrictions/Additional Instructions: Follow-up with follow-up with Dr. Garcia in 6 months Discharge Attestations Time Spent in Discharge Care*: less than 30 min Status at Discharge: Cognitive status at discharge: other (sedated), Quality Metrics Clinical Quality Measures During this hospital stay, did patient experience: None Coding Level of Care Code Established Pt Acute Chg FW DC note Patient Type Established History Expanded Problem Focused Exam Expanded Problem Focused Medical Decision Making Moderate Complexity
[2021-08-13] MEDS: FUROsemide 20 mg Tablet PO (09:56)
[2021-08-13] MEDS: clopidogrel 75 mg Tablet PO (09:56)
[2021-08-13] MEDS: finasteride 5 mg Tablet PO (09:56)
[2021-08-13] MEDS: atorvastatin 40 mg Tablet PO (09:56)
[2021-08-13] MEDS: carvedilol 3.125 mg Tablet PO (09:56)
[2021-08-13] MEDS: montelukast sodium 10 mg Tablet PO (09:56)
[2021-08-13] MEDS: aspirin 81 mg EC Tablet PO (09:56)
[2021-08-13] MEDS: famotidine 20 mg Tablet PO (09:56)
[2021-08-13 10:18] VITALS: BP 129/59; PULSE 74; O2SAT 95
--- NOTE | 2021-08-13 12:21 | PC.NURSE ---
discharge instructions given and explained.pt verb understanding.discharged via w/c to exit.spouse to drive pt home
== END 2021-08-13 12:05 | disposition home or self-care (01) ==
LOC: CSU 11:49
PROVIDERS: Admitting Provider Internal Medicine Cardiovascular Disease; PCP Family Medicine; Visit Provider Internal Medicine Cardiovascular Disease
DX: I70.211 Atherosclerosis of native arteries of extremities with intermittent claudication, right leg (principal); I25.10 Atherosclerotic heart disease of native coronary artery without angina pectoris; E11.22 Type 2 diabetes mellitus with diabetic chronic kidney disease; I12.9 Hypertensive chronic kidney disease with stage 1 through stage 4 chronic kidney disease, or unspecified chronic kidney disease; N18.2 Chronic kidney disease, stage 2 (mild); Z79.4 Long term (current) use of insulin; E66.9 Obesity, unspecified; Z68.28 Body mass index [BMI] 28.0-28.9, adult; G47.33 Obstructive sleep apnea (adult) (pediatric); Z95.1 Presence of aortocoronary bypass graft; Z82.49 Family history of ischemic heart disease and other diseases of the circulatory system; Z87.891 Personal history of nicotine dependence
CPT/HCPCS: 36415; 36416; 37225; 75710; 80048; 82962; 85025; 85347; 85730; C1724; C1725; C1769; C1887; C1894; C2623; G0378; J1644; J2250; J3010; J3490; J3535; J7030; Q9967

== ENCOUNTER 2021-08-17 10:03 | Outpatient (CLI) | payer MEDICARE, OTHER, SELFPAY | END 2021-08-17 10:04 | disposition home or self-care (01) | LOC: WOUND 10:04 | PROVIDERS: PCP Family Medicine; Visit Provider Thoracic Surgery (Cardiothoracic Vascular Surgery) | DX: I96 Gangrene, not elsewhere classified (principal); E11.621 Type 2 diabetes mellitus with foot ulcer; L97.511 Non-pressure chronic ulcer of other part of right foot limited to breakdown of skin; J44.9 Chronic obstructive pulmonary disease, unspecified; Z87.891 Personal history of nicotine dependence | CPT/HCPCS: 97597 ==

== ENCOUNTER 2021-08-24 13:58 | Outpatient (CLI) | payer MEDICARE, OTHER, SELFPAY | END 2021-08-24 13:59 | disposition home or self-care (01) | LOC: WOUND 13:59 | PROVIDERS: PCP Family Medicine; Visit Provider Nurse Practitioner Family | DX: I96 Gangrene, not elsewhere classified (principal); E11.621 Type 2 diabetes mellitus with foot ulcer; L97.512 Non-pressure chronic ulcer of other part of right foot with fat layer exposed; Z87.891 Personal history of nicotine dependence; J44.9 Chronic obstructive pulmonary disease, unspecified | CPT/HCPCS: 11042 ==

== ENCOUNTER 2021-08-31 14:43 | Outpatient (CLI) | payer MEDICARE, OTHER, SELFPAY | END 2021-08-31 14:44 | disposition home or self-care (01) | LOC: WOUND 14:44 | PROVIDERS: PCP Family Medicine; Visit Provider Thoracic Surgery (Cardiothoracic Vascular Surgery) | DX: E11.621 Type 2 diabetes mellitus with foot ulcer (principal); L97.512 Non-pressure chronic ulcer of other part of right foot with fat layer exposed; J44.9 Chronic obstructive pulmonary disease, unspecified; I73.9 Peripheral vascular disease, unspecified; Z87.891 Personal history of nicotine dependence | CPT/HCPCS: 97597 ==

== ENCOUNTER → 2021-09-02 14:25 | Outpatient (BNVA) | payer MEDICARE, OTHER, SELFPAY | PROVIDERS: PCP Family Medicine; Visit Provider Nurse Practitioner Family | DX: I73.9 Peripheral vascular disease, unspecified (principal) | CPT/HCPCS: 80048 ==

== ENCOUNTER 2021-09-07 13:57 | Outpatient (CLI) | payer MEDICARE, OTHER, SELFPAY | END 2021-09-07 13:58 | disposition home or self-care (01) | LOC: WOUND 13:58 | PROVIDERS: PCP Family Medicine; Visit Provider Emergency Medicine | DX: E11.621 Type 2 diabetes mellitus with foot ulcer (principal); L97.512 Non-pressure chronic ulcer of other part of right foot with fat layer exposed; I73.9 Peripheral vascular disease, unspecified; J44.9 Chronic obstructive pulmonary disease, unspecified; Z87.891 Personal history of nicotine dependence | CPT/HCPCS: 11043 ==

== ENCOUNTER 2021-09-21 10:49 | Outpatient (CLI) | payer MEDICARE, OTHER, SELFPAY | END 2021-09-21 10:50 | disposition home or self-care (01) | LOC: WOUND 10:50 | PROVIDERS: PCP Family Medicine; Visit Provider Thoracic Surgery (Cardiothoracic Vascular Surgery) | DX: E11.621 Type 2 diabetes mellitus with foot ulcer (principal); L97.512 Non-pressure chronic ulcer of other part of right foot with fat layer exposed; Z87.891 Personal history of nicotine dependence | CPT/HCPCS: 97597 ==

== ENCOUNTER 2021-09-28 10:38 | Outpatient (CLI) | payer MEDICARE, OTHER, SELFPAY | END 2021-09-28 10:39 | disposition home or self-care (01) | LOC: WOUND 10:41 | PROVIDERS: PCP Family Medicine; Visit Provider Thoracic Surgery (Cardiothoracic Vascular Surgery) | DX: E11.621 Type 2 diabetes mellitus with foot ulcer (principal); L97.512 Non-pressure chronic ulcer of other part of right foot with fat layer exposed; Z87.891 Personal history of nicotine dependence | CPT/HCPCS: 97597; 99212 ==

== ENCOUNTER 2021-09-28 11:34 | Outpatient (CLI) | payer MEDICARE, OTHER, SELFPAY ==
--- NOTE | 2021-09-28 | XR_ITS ---
WS: [id number] PROCEDURE: XR chest 2V* [id number] CLINICAL INFORMATION: TB LUNG LATENT COMPARISON: January 16, 2020 FINDINGS: Heart: Cardiomegaly. Cardiac pacer. Sternotomy. Lungs: Hyperinflation. Moderate chronic emphysematous changes. No acute pulmonary infiltrates. No foc al pneumonia or pleural fluid. Mild interstitial thickening in the lung bases likely chronic. Bones: Mild thoracic kyphosis with hypertrophic changes. Chronic appearing anterior wedging in the up per mid thoracic spine. XR/XR chest 2V* [id number] IMPRESSION: 1. Hyperinflation with chronic emphysematous changes. 2. Chronic appearing interstitial thickening in the lung bases. 3. No focal pneumonia. 4. Cardiomegaly with cardiac pacer. Sternotomy. 5. Chronic appearing anterior wedging in the upper mid thoracic spine.
== END 2021-09-28 11:35 | disposition home or self-care (01) ==
LOC: RADOUTREAD 09-29 14:18
PROVIDERS: PCP Family Medicine; Visit Provider Family Medicine
DX: Z53.9 Procedure and treatment not carried out, unspecified reason (principal)

== ENCOUNTER 2021-10-05 08:31 | Outpatient (CLI) | payer MEDICARE, OTHER, SELFPAY | END 2021-10-05 08:32 | disposition home or self-care (01) | LOC: WOUND 08:38 | PROVIDERS: PCP Family Medicine; Visit Provider Thoracic Surgery (Cardiothoracic Vascular Surgery) | DX: Z09 Encounter for follow-up examination after completed treatment for conditions other than malignant neoplasm (principal); E11.8 Type 2 diabetes mellitus with unspecified complications; Z87.891 Personal history of nicotine dependence | CPT/HCPCS: 99212 ==

== ENCOUNTER → 2021-12-07 10:40 | Outpatient (BNVA) | payer MEDICARE, OTHER, SELFPAY | PROVIDERS: PCP Family Medicine; Visit Provider Nurse Practitioner Family | DX: I73.9 Peripheral vascular disease, unspecified (principal); Z87.891 Personal history of nicotine dependence | CPT/HCPCS: 99214 ==

== ENCOUNTER → 2021-12-17 08:00 | Outpatient (BNVA) | payer MEDICARE, OTHER, SELFPAY | PROVIDERS: PCP Family Medicine; Visit Provider Internal Medicine Pulmonary Disease | DX: J44.9 Chronic obstructive pulmonary disease, unspecified (principal); Z87.891 Personal history of nicotine dependence; Z95.1 Presence of aortocoronary bypass graft; I10 Essential (primary) hypertension; E11.8 Type 2 diabetes mellitus with unspecified complications; G47.33 Obstructive sleep apnea (adult) (pediatric); N18.2 Chronic kidney disease, stage 2 (mild) | CPT/HCPCS: 99214 ==

== ENCOUNTER 2021-12-29 13:36 | Outpatient (CLI) | payer MEDICARE, OTHER, SELFPAY ==
--- NOTE | 2021-12-29 14:30 | CT_ITS ---
WS: [id number] CT ANGIOGRAPHY OF THE ABDOMINAL AORTA WITH RUNOFF TO THE ANKLES HISTORY: left leg cool, absent pulses by doppler TECHNIQUE: Arterial injection is performed during imaging to evaluate the aorta and runoff vessels to the ankles. MIP and volume rendering imaging has also been performed. All images are reviewed. All C T scans at [facility] use at least one of these dose optimization techniques: automated exposu re control; mA and/or kV adjustment per patient size (includes targeted exams where dose is matched t o clinical indication); or iterative reconstruction. Contrast: Visipaque 320; 95 mL IV. DLP: 2058.49 mGy.cm COMPARISON: 09/08/2020 Moderate enlargement of the LEFT heart chambers. Chronic emphysematous changes at the lung bases. Ple ural thickening at the LEFT lung base. Small hiatal hernia. Abdominal aorta: Moderate atherosclerotic plaque. Calcified plaque and intimal thickening with no ane urysm. Mild narrowing of the lumen with no stenosis. Heavy calcified plaque at the origin of celiac a xis with at least moderate if not high-grade stenosis. Moderate plaque at the origin of the SMA with no significant stenosis. Additional calcified plaque extends into the distal mesenteric artery. Signi ficant plaque burden involving the origin of the renal arteries with stenosis greater than 60% but gr eatest on the LEFT. Inferior mesenteric artery is still present and patent. RIGHT lower extremity arterial system: Heavy calcified plaque continues into the common, internal and external iliac arteries. There is a very high-grade stenosis at the origin of the external and inter nal iliac arteries. Internal iliac arteries completely occluded. Multifocal areas of moderate to luis re stenosis throughout the external iliac artery. 50% stenosis femoral artery. Severe atherosclerotic plaque continues into the deep profunda and SFA with multifocal areas of stenosis. Opacification of the mid to distal SFA is extremely limited. There may be areas of stenosis but the contrast bolus is not sufficient. Multifocal areas of significant stenosis or Jaspal's canal and the popliteal artery. Popliteal artery may be completely occluded as the lumen is obscured by plaque. Severely diseased art eries below the knee intermittently visualized. LEFT lower extremity arterial system: Heavy calcified plaque continues into the common iliac artery. High-grade stenosis proximal internal iliac artery. Multifocal areas of stenosis throughout the exter nal iliac artery near 50%. Very high-grade stenosis involving the femoral artery with suspected compl ete occlusion involving the proximal SFA. No flow in the SFA or the deep profunda. Mild reconstitutio n of flow to Jaspal's canal and at the knee but there is a significant stenosis. The lumen is obscure d by heavy calcified plaque. Severe atherosclerotic disease below the knee with intermittently visual ized lower extremity arteries. Prior cholecystectomy. No acute abnormalities within the liver, spleen or pancreas. No adrenal mass. Atrophic kidneys with no obstruction. No GI tract obstruction. No adenopathy or ascites. Minimally distended urinary bladder. RIGHT lateral bladder diverticulum. Prior fixation LEFT hip frac ture. CT/CT angio abd aorta runof [id number] IMPRESSION: 1. Patient has extensive atherosclerotic disease which has been previously yeyo cribed on 09/08/2020 with progression. 2. Complete occlusion LEFT proximal SFA and deep profunda with a very high-gra de stenosis in the distal LEFT femoral artery. 3. Minimal, attempted reconstitution in the LEFT Jaspal's canal and popliteal vein. Severe atherosclerotic changes below the knee. 4. Extensive calcified plaque within the RIGHT common, internal and external i liac arteries with multifocal areas of moderate to severe stenosis. 5. Extensive atherosclerotic plaque throughout the RIGHT SFA and the popliteal artery. Severe areas of stenosis. Entire SFA is poorly visualized. Popliteal a rtery may be occluded. 6. Severely diseased arteries below the RIGHT knee. Lumen partially obscured b y the calcified plaque. 7. Extensive plaque with significant stenosis involving the celiac axis and th e renal arteries bilaterally. 8. Severe atherosclerotic plaque abdominal aorta.
[2021-12-29] MEDS: iodixanol 320 mg/mL 100mL Btl IV (15:19)
[2021-12-29 15:23] LABS: Blood Urea Nitrogen 23 mg/dL (8-23)
== END 2021-12-29 13:37 | disposition home or self-care (01) ==
LOC: RAD 13:40
PROVIDERS: PCP Family Medicine; Visit Provider Nurse Practitioner Family
DX: I73.9 Peripheral vascular disease, unspecified (principal)
CPT/HCPCS: 75635; 82565; 84520

== ENCOUNTER → 2021-12-31 13:45 | Outpatient (BNVA) | payer MEDICARE, OTHER, SELFPAY | PROVIDERS: PCP Family Medicine; Visit Provider Internal Medicine | DX: Z45.010 Encounter for checking and testing of cardiac pacemaker pulse generator [battery] (principal) ==

== ENCOUNTER 2022-01-04 11:24 | Emergency (ER) | payer MEDICARE, OTHER, SELFPAY ==
[2022-01-04 12:03] VITALS: BP 128/63; PULSE 79; RESP 20; TEMP 36.1; O2SAT 90
[2022-01-04 12:59] VITALS: BP 138/78; PULSE 84; RESP 26; O2SAT 95
[2022-01-04 13:14] VITALS: RESP 26; O2SAT 94
[2022-01-04] MEDS: ondansetron 2 mg/ML SDV 2 mL 4 MG IVP (13:14)
[2022-01-04] MEDS: morphine 4 mg/mL SDV 1 mL IVP (13:14)
[2022-01-04 13:19] LABS: Basophils # 0.1 10^3/uL (0.0-0.1); Basophils % 0.5 %; Eosinophils # 0.2 10^3/uL (0.0-0.8); Eosinophils % 1.3 %; Hematocrit 36.2 % (42.0-52.0); Hemoglobin 11.7 g/dL (11.7-16.6); Lymphocytes # 1.9 10^3/uL (0.8-4.8); Lymphocytes % 14.6 %; Mean Corpuscular HGB Conc 32.3 g/dL (30.0-36.0); Mean Corpuscular Hemoglobin 28.5 pg (28.0-34.0); Mean Corpuscular Volume 88.3 fl (80-94); Mean Platelet Volume 9.7 fL (7.4-10.4); Monocytes # 0.9 10^3/uL (0.2-0.9); Neutrophils # 9.75 10^3/uL (1.8-7.7); Neutrophils % 76.1 %; Nucleated Red Blood Cells % 0 %; Platelet Count 265 10^3/cmm (130-400); Red Cell Distribution Width 14.7 % (12.1-15.1); White Blood Count 12.8 10^3/uL (4.0-10.0)
--- NOTE | 2022-01-04 13:24 | USCV_ITS ---
Patience Salcedo Age: 76 Gender: M : 1945 Exam Date: 01/04/2022 13:57 Ordering Phys: Jacinto Hope DO Technologist: Sim Huddleston Exam Location[place] [facility] [place] Indication: COLD AND RED LT FOOT Risk Factors: Previous Vascular Surgery: RIGHT LEFT BP: 140.0 / 80.00 BP: 140.0/ 80.00 0 0 Waveform Velocity (cm/s) Velocity (cm/s) Waveform Iliac Prox 36.5 Iliac Mid Biphasic POP 41.2 DPA 19.4 ADAL 0.2 FINDINGS Monophasic low velocity Doppler signals in the proximal left iliac artery. No Doppler flow signals in the rest of the iliac or femoral arteries. Low velocity continuous Doppler signal in the popliteal artery and the dorsalis pedis artery. Normal Doppler flow signals in the posterior tibial artery. Resting ADAL 0.2 on the left side. CONCLUSIONS 1. Absent Doppler flow signals from mid iliac to the distal femoral artery on the left side. 2. Features of sluggish collateral filling in the popliteal artery and dorsalis pedis artery on the left side. 3. Occluded posterior tibial artery on the left side Compared to the study from 08/06/2020, the ADAL on the left has decreased from 0.[address] Debbie Clark MD [facility] (Electronically Signed) Final Date: 04 January 2022 19:34 S
--- NOTE | 2022-01-04 13:30 | PC.NURSE ---
R pedal pulse w doppler barely audible. Unable to doppler L pedal pulse, slow cap refill to L toes.
[2022-01-04 13:32] LABS: Alanine Aminotransferase 13 U/L (0-41); Albumin Level 3.9 g/dL (3.5-5.2); Alkaline Phosphatase 129 IU/L (40-130); Anion Gap 17.4 (5-19); Aspartate Amino Transferase 14 U/L (0-40); Blood Urea Nitrogen 23 mg/dL (8-23); Calcium 8.7 mg/dL (8.5-10.5); Carbon Dioxide 25 mmol/L (22-29); Chloride 101 mmol/L (98-107); Globulin 3.9 g/dL (1.3-4.6); Glucose 98 mg/dL (65-115); Osmolality Calculated 292 mOsm/kg (285-295); Potassium 4.4 mmol/L (3.5-5.1); Sodium 139 mmol/L (136-145); Total Bilirubin 0.3 mg/dL (0.15-1.2); Total Protein 7.8 g/dL (6.6-8.7)
[2022-01-04] MEDS: heparin drip 25,000 UNIT/500 ML PREMIX 23.94 UNIT IV (15:09)
[2022-01-04] MEDS: heparin 5,000 unit/mL INJ 1 mL IV (15:09)
--- NOTE | 2022-01-04 15:19 | ECG_ITS ---
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 Measurements Intervals Colony Rate: 84 P: 85 MA: 165 QRS: -71 QRSD: 193 T: 75 QT: 449 QTc: 532 Interpretive Statements ELECTRONIC VENTRICULAR PACEMAKER ABNORMAL RHYTHM ECG Compared to ECG 01/07/2020 19:32:21 Junctional rhythm no longer present Electronically Signed On 01-04-2022 19:46:03 CDT by Debbie Clark M.D. [email or web address]
[2022-01-04 15:40] LABS: INR 1.01 (0.8-1.2)
[2022-01-04 15:41] LABS: Partial Thromboplastin Time 34.9 SECONDS (23.9-36.7)
--- NOTE | 2022-01-04 16:10 | ED_ITS ---
HPI - Extremity Problem General: Chief complaint: Extremity Problem,Nontraumatic Stated complaint: Left leg pain Time Seen by Provider: 01/04/22 13:10 Source: patient Mode of arrival: ambulatory Limitations: no limitations History of Present Illness: 76-year-old male presents to the emergency room with complaint of leg pain. Patient has known peripheral artery disease beginning this morning at sudden onset of persistently worsening leg pain. Now he is getting claudication symptoms while at rest. He had previously been evaluated at the cardiology clinic for this they did not feel he was a candidate for any kind of intervention locally because of the extent of his peripheral artery disease and they were not sure they be able to get any access because of his febrile iliac artery occlusions. They have been making arrangements to refer him to vascular surgery at a tertiary care facility. MD Complaint: extremity pain Onset (ago): hour(s) Pain Consistency: constant Location: left Quality: aching Radiation: distal Relieving factors: nothing Exacerbating factors: exertion Associated symptoms: Deny chest pain, fever(s) or rash Review of Systems Const: Denies: fever(s), chills, body aches, change in appetite, fatigue or malaise ENMT: Denies: throat pain, ear or mastoid pain, nasal discharge or nasal congestion Card: Denies: chest pain, palpitations, irregular heart rhythm, edema, dyspnea on exertion or orthopnea Resp: Denies: dyspnea, productive cough or non-productive cough GI: Denies: abdominal pain, nausea, vomiting, hematemesis, coffee ground emesis, diarrhea, constipation, bloating, hematochezia or melena : Denies: flank pain, difficulty urinating, dysuria, urinary frequency or urinary urgency Musc: Reports: extremity pain Skin/Breast: Denies: rash or pruritus PFSH ED PFSH: Medical History HAZEL (acute kidney injury) -HAZEL on CKD stage 2 -baseline Cr wnl -slight worsening in renal function likely due to diuresis, continue to monitor -avoid nephrotoxins, renally dose meds CAD (coronary artery disease) -follows up with Dr. Florez -s/p CABG Chronic anemia -baseline Hg around 10 Chronic kidney disease CKD (chronic kidney disease) stage 2, GFR 60-89 ml/min -baseline Cr wnl Congestive heart failure COPD (chronic obstructive pulmonary disease) Fracture, femoral Hemoptysis -hemoptysis noted with continued drop in Hg (10.9--->8.8) -continue to monitor H/H closely and continue to hold AC; INR-1.04; has been off heparin x > 72 hrs -Consult by Dr. 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 Unable to lay flat for imaging and then decompensated and had to be intubated -pending ALMAS, ANCA, anti-dsDNA, SAUL; ESR-19, CRP-6.0, C3-106, C4-24 HTN (hypertension) Non-insulin dependent diabetes mellitus -A1c-5.9 -accuchecks, ISS, hypoglycemia precautions -hold metformin -anticipate hyperglycemia with steroid use and acute illness -consistent carb diet as tolerated Obesity -BMI-31 kg/m2 DARIUS (obstructive sleep apnea) -CPAP qhs Peripheral arterial disease Smoker within last 12 months Surgical History Hx of CABG Hx of cholecystectomy Family History Mother CAD (coronary artery disease) Social History Smoking and tobacco status: former smoker Quit status (tobacco): has quit using tobacco Year quit tobacco: 2015 - 1ppd x 60 Second hand smoke exposure: No Smoking risk assessment/counseling performed?: Yes Alcohol intake: never Lives independently: Yes Household members: spouse Marital status: Current occupational status: retired History of recent travel: No Current gender identity: Male Physical Exam Const: COMMON NORMALS: no acute distress GENERAL APPEARANCE: cooperative and comfortable ORIENTATION/CONSCIOUSNESS: Yes awake, Yes oriented to person, Yes oriented to place and Yes oriented to time HENMT: COMMON NORMALS: normocephalic, atraumatic and hearing grossly normal bilaterally HEAD & SCALP: normocephalic and atraumatic Neck/C-Spine: COMMON NORMALS: no JVD Resp: COMMON NORMALS: normal respiratory effort, No retractions, No use of accessory muscles and clear to auscultation bilaterally AUSCULTATION: clear to auscultation bilaterally Cardio: COMMON NORMALS: no JVD, regular rate, regular rhythm and No murmurs present (Cardio) RATE: regular rate RHYTHM: regular rhythm GI: COMMON NORMALS: Soft to palpation and No hepatosplenomegaly present AUSCULTATION: Yes normoactive bowel sounds PALPATION: Yes Soft to palpation, No Tenderness to palpation present (GI), No Guarding due to palpation present (GI) and Yes No hepatosplenomegaly present Extremity: OTHER: No palpable pulses in either lower extremities. See Doppler report in the imaging section of the chart Neuro: SENSORIUM/ORIENTATION: Yes oriented to person, Yes oriented to place and Yes oriented to time Skin: COMMON NORMALS: no rashes or lesions noted GENERAL SKIN EXAM: no rashes or lesions noted Course Vital Signs: Vital signs: Vital Signs Temperature 98 F 01/04/22 17:26 Pulse Rate 64 01/04/22 17:26 Respiratory Rate 18 01/04/22 17:26 Blood Pressure 139/71 01/04/22 17:26 Pulse Oximetry 96 01/04/22 17:26 MDM - Extremity (Nontraumatic) Medical Decision Making Acute ischemic left leg. Discussed with Dr. Garcia he does not feel that he would be able to revascularize here because difficulty with access and the extent of the disease he feels will need vascular surgery. Will refer to [facility] for vascular surgery consult patient was heparinized here. Medical Records I reviewed the patient's medical records. Lab Data I reviewed the patient's lab results. : 01/04/22 12:50 01/04/22 12:50 Laboratory Results WBC 12.8 10^3/uL (4.0-10.0) H 01/04/22 12:50 RBC 4.10 10^6/uL (4.1-5.3) 01/04/22 12:50 Hgb 11.7 g/dL (11.7-16.6) 01/04/22 12:50 Hct 36.2 % (42.0-52.0) L 01/04/22 12:50 MCV 88.3 fl (80-94) 01/04/22 12:50 MCH 28.5 pg (28.0-34.0) 01/04/22 12:50 MCHC 32.3 g/dL (30.0-36.0) 01/04/22 12:50 RDW 14.7 % (12.1-15.1) 01/04/22 12:50 Plt Count 265 10^3/cmm (130-400) 01/04/22 12:50 MPV 9.7 fL (7.4-10.4) 01/04/22 12:50 Neut % (Auto) 76.1 % 01/04/22 12:50 Lymph % (Auto) 14.6 % 01/04/22 12:50 [place] % (Auto) 7.0 % 01/04/22 12:50 Eos % (Auto) 1.3 % 01/04/22 12:50 Baso % (Auto) 0.5 % 01/04/22 12:50 Neut # (Auto) 9.75 10^3/uL (1.8-7.7) H 01/04/22 12:50 Lymph # (Auto) 1.9 10^3/uL (0.8-4.8) 01/04/22 12:50 [place] # (Auto) 0.9 10^3/uL (0.2-0.9) 01/04/22 12:50 Eos # (Auto) 0.2 10^3/uL (0.0-0.8) 01/04/22 12:50 Baso # (Auto) 0.1 10^3/uL (0.0-0.1) 01/04/22 12:50 Nucleated RBC % (auto) 0 % 01/04/22 12:50 Nucleated RBCs # 0.0 /100WBC 01/04/22 12:50 PT 13.60 SECONDS (12.1-14.9) 01/04/22 12:50 INR 1.01 (0.8-1.2) 01/04/22 12:50 APTT 34.9 SECONDS (23.9-36.7) 01/04/22 12:50 Sodium 139 mmol/L (136-145) 01/04/22 12:50 Potassium 4.4 mmol/L (3.5-5.1) 01/04/22 12:50 Chloride 101 mmol/L (98-107) 01/04/22 12:50 Carbon Dioxide 25 mmol/L (22-29) 01/04/22 12:50 Anion Gap 17.4 (5-19) 01/04/22 12:50 BUN 23 mg/dL (8-23) 01/04/22 12:50 Creatinine 1.4 mg/dL (0.7-1.2) H 01/04/22 12:50 GFR Calculation Not Reportable 01/04/22 12:50 Glucose 98 mg/dL (65-115) 01/04/22 12:50 Calculated Osmolality 292 mOsm/kg (285-295) 01/04/22 12:50 Calcium 8.7 mg/dL (8.5-10.5) 01/04/22 12:50 Total Bilirubin 0.3 mg/dL (0.15-1.2) 01/04/22 12:50 AST 14 U/L (0-40) 01/04/22 12:50 ALT 13 U/L (0-41) 01/04/22 12:50 Alkaline Phosphatase 129 IU/L (40-130) 01/04/22 12:50 Total Protein 7.8 g/dL (6.6-8.7) 01/04/22 12:50 Albumin 3.9 g/dL (3.5-5.2) 01/04/22 12:50 Globulin 3.9 g/dL (1.3-4.6) 01/04/22 12:50 Discharge Plan Discharge Patient Disposition: Transfer to ED Clinical Impression: Ischemic leg pain, Peripheral arterial disease Condition: Stable Prescriptions: No Action furosemide 20 mg tablet 20 mg PO DAILY 0RF finasteride 5 mg tablet 5 mg PO DAILY 0RF albuterol sulfate [Ventolin HFA] 90 mcg/actuation HFA aerosol inhaler 1 inh INHALATION DAILY 0RF guaifenesin [Mucinex] 600 mg tablet extended release 12hr 600 mg PO BID 0RF lisinopril 5 mg tablet 5 mg PO DAILY 0RF clopidogrel 75 mg tablet 75 mg PO DAILY Qty: 90 3RF carvedilol [Coreg] 3.125 mg tablet 3.125 mg PO BID Qty: 180 3RF Rx Instructions: must administer with a meal/food aspirin [Adult Aspirin Regimen] 81 mg tablet,delayed release (DR/EC) 81 mg PO DAILY Qty: 90 3RF multivitamin [Multiple Vitamins] Tablet 1 tab PO DAILY 0RF atorvastatin 40 mg tablet 40 mg PO DAILY 0RF garlic 1,000 mg Capsule 1,000 mg PO DAILY 0RF famotidine 20 mg Tablet 20 mg PO DAILY 0RF montelukast 10 mg tablet 10 mg PO DAILY 0RF metformin 500 mg tablet extended release 24 hr 500 mg PO BID 0RF omega 0-zvj-mwf-fish oil [Fish Oil] 1,000 mg (120 mg-180 mg) Capsule 1 cap PO DAILY 0RF fluticasone propionate 50 mcg/actuation spray,suspension 1 spray INTRANASAL DAILY PRN (Reason: Dry Nasal Passages) 0RF Trelegy Ellipta 100-62.5-25 mcg Blister With Device 1 inh INHALATION DAILY 0RF Referrals: Hema Hartman MD [Primary Care Provider] - Coding Level of Care Code ED Plant Control Aide for Angelika Mckenzie
[2022-01-04 16:17] VITALS: BP 152/60; PULSE 69; RESP 18; O2SAT 93
[2022-01-04 16:30] VITALS: BP 136/64; PULSE 61; RESP 18; O2SAT 96
--- NOTE | 2022-01-04 16:33 | PC.NURSE ---
Heparin gtt infusing, physician was @BS to discuss POC.
--- NOTE | 2022-01-04 16:52 | ECG_ITS ---
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 Measurements Intervals [place] Rate: 71 P: 212 ND: 171 QRS: -77 QRSD: 206 T: 81 QT: 471 QTc: 512 Interpretive Statements ELECTRONIC ATRIAL PACEMAKER ELECTRONIC VENTRICULAR PACEMAKER ABNORMAL RHYTHM ECG Compared to ECG 01/04/2022 13:04:01 No significant changes Hello Electronically Signed On 01-04-2022 19:47:04 CDT by Debbie Clark M.D. [id number] f
[2022-01-04 17:26] VITALS: BP 139/71; PULSE 64; RESP 18; TEMP 36.6; O2SAT 96
== END 2022-01-04 18:02 ==
PROVIDERS: Emergency Provider Family Medicine; PCP Family Medicine
DX: I70.222 Atherosclerosis of native arteries of extremities with rest pain, left leg (principal); M79.605 Pain in left leg; I73.89 Other specified peripheral vascular diseases; I13.0 Hypertensive heart and chronic kidney disease with heart failure and stage 1 through stage 4 chronic kidney disease, or unspecified chronic kidney disease; E11.22 Type 2 diabetes mellitus with diabetic chronic kidney disease; N18.9 Chronic kidney disease, unspecified; I50.9 Heart failure, unspecified; N17.9 Acute kidney failure, unspecified; I25.10 Atherosclerotic heart disease of native coronary artery without angina pectoris; J44.9 Chronic obstructive pulmonary disease, unspecified; E66.9 Obesity, unspecified; Z68.29 Body mass index [BMI] 29.0-29.9, adult
CPT/HCPCS: 80053; 85025; 85610; 85730; 93005; 93926; 96365; 96375; 99285; J1644; J2270; J2405

== ENCOUNTER → 2022-01-27 08:24 | Outpatient (BNVA) | payer MEDICARE, OTHER, SELFPAY | PROVIDERS: PCP Family Medicine; Visit Provider Thoracic Surgery (Cardiothoracic Vascular Surgery) | DX: L97.522 Non-pressure chronic ulcer of other part of left foot with fat layer exposed; I77.6 Arteritis, unspecified; I96 Gangrene, not elsewhere classified | CPT/HCPCS: 11042; 87070; 87077; 87186; 97597; 99213 ==

== ENCOUNTER → 2022-02-03 08:12 | Outpatient (BNVA) | payer MEDICARE, OTHER, SELFPAY | PROVIDERS: PCP Family Medicine; Visit Provider Thoracic Surgery (Cardiothoracic Vascular Surgery) | DX: I73.9 Peripheral vascular disease, unspecified (principal); L98.492 Non-pressure chronic ulcer of skin of other sites with fat layer exposed; E11.621 Type 2 diabetes mellitus with foot ulcer; L97.522 Non-pressure chronic ulcer of other part of left foot with fat layer exposed | CPT/HCPCS: 11042; 97597 ==

== ENCOUNTER → 2022-02-10 07:58 | Outpatient (BNVA) | payer MEDICARE, OTHER, SELFPAY | PROVIDERS: PCP Family Medicine; Visit Provider Thoracic Surgery (Cardiothoracic Vascular Surgery) | DX: T81.89XA Other complications of procedures, not elsewhere classified, initial encounter (principal); Y83.8 Other surgical procedures as the cause of abnormal reaction of the patient, or of later complication, without mention of misadventure at the time of the procedure; I73.9 Peripheral vascular disease, unspecified; E11.621 Type 2 diabetes mellitus with foot ulcer; L97.522 Non-pressure chronic ulcer of other part of left foot with fat layer exposed | CPT/HCPCS: 11042; 97597 ==

== ENCOUNTER → 2022-02-15 12:20 | Outpatient (BNVA) | payer MEDICARE, OTHER, SELFPAY | PROVIDERS: PCP Family Medicine; Visit Provider Internal Medicine | DX: I13.0 Hypertensive heart and chronic kidney disease with heart failure and stage 1 through stage 4 chronic kidney disease, or unspecified chronic kidney disease (principal); E11.22 Type 2 diabetes mellitus with diabetic chronic kidney disease; N18.31 Chronic kidney disease, stage 3a; I50.9 Heart failure, unspecified; Z87.891 Personal history of nicotine dependence; Z79.84 Long term (current) use of oral hypoglycemic drugs; R00.1 Bradycardia, unspecified; Z95.1 Presence of aortocoronary bypass graft | CPT/HCPCS: 99214 ==

== ENCOUNTER → 2022-02-17 08:07 | Outpatient (BNVA) | payer MEDICARE, OTHER, SELFPAY | PROVIDERS: PCP Family Medicine; Visit Provider Nurse Practitioner Family | DX: I73.9 Peripheral vascular disease, unspecified (principal); I96 Gangrene, not elsewhere classified; L89.892 Pressure ulcer of other site, stage 2; L97.522 Non-pressure chronic ulcer of other part of left foot with fat layer exposed | CPT/HCPCS: 11042; A6021 ==

== ENCOUNTER → 2022-02-22 08:40 | Outpatient (BNVA) | payer MEDICARE, OTHER, SELFPAY | PROVIDERS: PCP Family Medicine; Visit Provider Internal Medicine Pulmonary Disease | DX: R06.02 Shortness of breath (principal); J44.9 Chronic obstructive pulmonary disease, unspecified; Z87.891 Personal history of nicotine dependence; Z95.1 Presence of aortocoronary bypass graft; Z99.81 Dependence on supplemental oxygen | CPT/HCPCS: 99214 ==

== ENCOUNTER → 2022-03-03 08:04 | Outpatient (BNVA) | payer MEDICARE, OTHER, SELFPAY | PROVIDERS: PCP Family Medicine; Visit Provider Thoracic Surgery (Cardiothoracic Vascular Surgery) | DX: I73.9 Peripheral vascular disease, unspecified; E11.621 Type 2 diabetes mellitus with foot ulcer; L97.522 Non-pressure chronic ulcer of other part of left foot with fat layer exposed | CPT/HCPCS: 11042; 97597; A6219 ==

== ENCOUNTER 2022-03-10 13:07 | Outpatient (CLI) | payer MEDICARE, OTHER, SELFPAY ==
--- NOTE | 2022-03-10 13:13 | CT_ITS ---
WS: [id number] LDCT LUNG CANCER SCREENING TECHNIQUE: Noncontrast CT of the chest with coronal and sagittal reformatted images. CLINICAL INFORMATION: lung screening COMPARISON: January 26, 2021 DLP: 87.79 mGy.cm DIvol: Mean CTDIvol: 1.60 (mGy) All CT scans at [facility] use at least one of these dose optimization techniques: automat ed exposure control; mA and/or kV adjustment per patient size (includes targeted exams where dose is matched to clinical indication); or iterative reconstruction. FINDINGS: Previous described groundglass opacity in the LEFT lower lobe medially has resolved. Adjace nt LEFT lower lobe groundglass opacity/fibrosis measuring 15 mm is new or progressed compared to prev ious. Subpleural nodularity in the LEFT lower lobe. Small LEFT pleural effusion. LEFT lower lobe nodu les measuring 5 to 6 mm. Adrenal glands are normal. Cholecystectomy clips. Moderate esophageal hiatal hernia. Fatty atrophy of the pancreas. Sternotomy. CABG. Dual-lead LEFT subclavian pacer. No axillary lymphadenopathy. Hypertrophic changes thoracic spine. Chronic emphysematous changes. No acute pulmonary infiltrates. Subpleural fibrosis. P rior CABG. Mild cardiomegaly. Mild anterior wedging T7 and T12. CT/CT lung screening [id number] IMPRESSION: LUNG-RADS: 2-Benign Appearance or Behavior FOLLOW UP: 12 Month: Continue annual screening with LDCT
== END 2022-03-10 13:08 | disposition home or self-care (01) ==
LOC: RAD 13:07
PROVIDERS: PCP Family Medicine; Visit Provider Internal Medicine Pulmonary Disease
DX: Z12.2 Encounter for screening for malignant neoplasm of respiratory organs (principal); Z87.891 Personal history of nicotine dependence; E11.621 Type 2 diabetes mellitus with foot ulcer; L97.512 Non-pressure chronic ulcer of other part of right foot with fat layer exposed; I73.9 Peripheral vascular disease, unspecified; L97.522 Non-pressure chronic ulcer of other part of left foot with fat layer exposed
CPT/HCPCS: 11042; 71271; 97597

== ENCOUNTER → 2022-03-17 07:57 | Outpatient (BNVA) | payer MEDICARE, OTHER, SELFPAY | PROVIDERS: PCP Family Medicine; Visit Provider Thoracic Surgery (Cardiothoracic Vascular Surgery) | DX: E11.621 Type 2 diabetes mellitus with foot ulcer (principal); L97.512 Non-pressure chronic ulcer of other part of right foot with fat layer exposed | CPT/HCPCS: 11042; 97597; A6213 ==

== ENCOUNTER → 2022-04-15 12:55 | Outpatient (BNVA) | payer MEDICARE, OTHER, SELFPAY | PROVIDERS: PCP Family Medicine; Visit Provider Podiatrist Foot & Ankle Surgery | DX: L97.516 Non-pressure chronic ulcer of other part of right foot with bone involvement without evidence of necrosis (principal); I73.9 Peripheral vascular disease, unspecified; N18.31 Chronic kidney disease, stage 3a; G62.9 Polyneuropathy, unspecified; Z98.890 Other specified postprocedural states | CPT/HCPCS: 99205 ==

== ENCOUNTER 2022-04-23 09:15 | Day surgery (SDC) | payer MEDICARE, OTHER, SELFPAY ==
[2022-04-23] MEDS: sodium chloride 0.9% 1,000 ML 30 ML IV (10:11)
[2022-04-23] MEDS: ceFAZolin 2,000 MG in sodium chloride 0.9% (plus) 50 ML 100 MG IV (10:48)
[2022-04-23] MEDS: lidocaine 1% INJ 50 mL INJECTION (11:00)
--- NOTE | 2022-04-23 11:03 | ANES.PREANE2 ---
Pre-Anesthetic Assessment Height/Weight: Height 1.78 m O2 Del Method 04/23/22 09:47 Preop Diagnosis: Gangrene right third and fourth toes Operation Date: 04/23/22 11:50 Proposed Procedures p Right third and fourth toe amputation 53653 X2,I70.661(Right) - Ivan Erickson DPM Familial anesthetic complications: none Was Beta Yasmany taken within 24 hours: Yes Was Clonidine taken within 24 hours: N/A Last intake: Intake Last Liquid Date 04/22/22 Last Liquid Time 18:00 Last Solid Date 04/22/22 Last Solid Time 18:00 Social Tobacco and No alcohol Exam alert, oriented x 3 and regular rate & rhythm Airway Submandibular: within normal limits Cervical ROM: within normal limits Mallampati: Class II Dentition: false Pulmonary Chronic Obstructive Pulmonary Disease CV/HEM Coronary Artery Disease, Hypertension and Peripheral Vascular Disease pacemaker, CABG Chronic Renal Insufficiency Metabolic Diabetes Mellitus and Hyperlipidemia Anesthetic Plan ASA status: 3 Anesthesia: MAC Medications/Allergies Home Medications Medication Instructions Recorded Confirmed Last Taken Type atorvastatin 40 mg tablet 40 mg PO DAILY 01/07/20 04/23/22 04/22/22 21:00 History garlic 1,000 mg capsule 1,000 mg PO DAILY 01/07/20 04/23/22 04/23/22 08:00 History metformin 500 mg tablet,extended 500 mg PO BID 01/07/20 04/23/22 04/22/22 08:00 History release 24 hr montelukast 10 mg tablet 10 mg PO DAILY 01/07/20 04/23/22 04/23/22 08:00 History multivitamin (Multiple Vitamins 1 tab PO DAILY 01/07/20 04/23/22 04/22/22 21:00 History tablet) omega 8-wec-hmu-fish oil 1,000 mg 1 cap PO DAILY 01/07/20 04/23/22 04/23/22 08:00 History (120 mg-180 mg) capsule (Fish Oil) albuterol sulfate 90 mcg/actuation 1 inh inhalation DAILY 03/03/20 04/23/22 04/22/22 08:00 History aerosol inhaler (Ventolin HFA) finasteride 5 mg tablet 5 mg PO DAILY 03/07/20 04/23/22 04/23/22 08:00 History clopidogrel 75 mg tablet 75 mg PO DAILY #90 tabs 05/12/20 04/23/22 04/22/22 08:00 Rx fluticasone fur. 100 mcg-umeclid 1 inh inhalation DAILY 11/18/20 04/23/22 04/22/22 08:00 History 62.5 mcg-vilant 25 mcg inhalat.powder (Trelegy Ellipta) fluticasone propionate 50 1 spray intranasal DAILY PRN Dry 02/02/21 04/23/22 01/04/22 History mcg/actuation nasal Nasal Passages spray,suspension furosemide 20 mg tablet 20 mg PO DAILY 07/15/21 04/23/22 04/22/22 08:00 History guaifenesin 600 mg tablet, 600 mg PO DAILY 12/17/21 04/23/22 04/23/22 08:00 History extended release 12 hr (Mucinex) aspirin 81 mg tablet,delayed 81 mg PO DAILY #90 tabs 12/28/21 04/23/22 04/23/22 08:00 Rx release (Adult Aspirin Regimen) cholecalciferol (vitamin D3) 10 10 mcg PO DAILY 02/15/22 04/23/22 04/23/22 08:00 History mcg (400 unit) capsule famotidine 20 mg tablet 20 mg PO BID 02/15/22 04/23/22 04/22/22 18:00 History doxycycline hyclate 100 mg capsule 100 mg PO BID 14 days #28 caps 04/15/22 04/23/22 04/22/22 18:00 Rx carvedilol 3.125 mg tablet (Coreg) 3.125 mg PO BID #180 tabs 04/21/22 04/23/22 04/23/22 08:00 Rx Allergies Allergy/AdvReac Type Severity Reaction Status Date / Time No Known Allergies Allergy Verified 04/23/22 09:33 Current Medications Generic Name Dose Route Start Last Admin Trade Name Freq PRN Reason Stop Dose Admin Sodium Chloride 1,000 mls @ 30 mls/hr 04/23/22 09:30 04/23/22 10:11 Sodium Chloride 0.9% IV 04/24/22 09:29 30 mls/hr .Q24H HANNAH Administration PFSH Anesthesia Medical History HAZEL (acute kidney injury) -HAZEL on CKD stage 2 -baseline Cr wnl -slight worsening in renal function likely due to diuresis, continue to monitor -avoid nephrotoxins, renally dose meds CAD (coronary artery disease) -follows up with Dr. Florez -s/p CABG Chronic anemia -baseline Hg around 10 Chronic kidney disease CKD (chronic kidney disease) stage 2, GFR 60-89 ml/min -baseline Cr wnl Congestive heart failure COPD (chronic obstructive pulmonary disease) Fracture, femoral Hemoptysis -hemoptysis noted with continued drop in Hg (10.9--->8.8) -continue to monitor H/H closely and continue to hold AC; INR-1.04; has been off heparin x > 72 hrs -Consult by Dr. 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 Unable to lay flat for imaging and then decompensated and had to be intubated -pending AMLAS, ANCA, anti-dsDNA, SAUL; ESR-19, CRP-6.0, C3-106, C4-24 HTN (hypertension) Non-insulin dependent diabetes mellitus -A1c-5.9 -accuchecks, ISS, hypoglycemia precautions -hold metformin -anticipate hyperglycemia with steroid use and acute illness -consistent carb diet as tolerated Obesity -BMI-31 kg/m2 DARIUS (obstructive sleep apnea) -CPAP qhs Peripheral arterial disease Smoker within last 12 months Surgical History Hx of CABG Hx of cholecystectomy Family History Mother CAD (coronary artery disease) Social History Smoking and tobacco status: former smoker Quit status (tobacco): has quit using tobacco Year quit tobacco: 2015 - 1ppd x 60 Second hand smoke exposure: No Smoking risk assessment/counseling performed?: Yes Alcohol intake: never Lives independently: Yes Household members: spouse Marital status: Current occupational status: retired History of recent travel: No Current gender identity: Male Data Anesthesia Cardiac Studies: Echocardiogram Ultrasound 01/08/20
[2022-04-23 11:20] VITALS: BP 118/55; PULSE 77; RESP 16; TEMP 36.4; O2SAT 99
[2022-04-23 11:21] VITALS: BP 122/65; PULSE 75; RESP 17; O2SAT 98
[2022-04-23 11:25] VITALS: BP 118/55; PULSE 72; RESP 16; O2SAT 99
--- NOTE | 2022-04-23 11:25 | W.PM.OPSUD ---
Surgery/Procedure H&P Update DATE OF PROCEDURE: April 23, 2022 DATE H&P PERFORMED: 04/15/22 CHANGES TO PREVIOUS DOCUMENTATION: none PREOP DIAGNOSIS: Gangrene right third and fourth toes PLANNED PROCEDURE: Operation Date: 04/23/22 11:50 Proposed Procedures p Right third and fourth toe amputation 37299 X2,I70.661(Right) - Ivan Erickson DPM
[2022-04-23 11:30] VITALS: BP 122/65; PULSE 74; RESP 16; O2SAT 99
--- NOTE | 2022-04-23 11:34 | PM.OP ---
Operative Report Date of procedure: April 23, 2022 Pre-op diagnosis: Preop Diagnosis Gangrene right third and fourth toes Post-op diagnosis: Same Post-op findings: Skin bleeding amputation site Procedure done: Amputation of right third toe. CPT code 55198 Amputation of right fourth toe. CPT code 37974 Implants: 3-0 Vicryl, 3-0 nylon Pathology: Right third and fourth toe sent to pathology for permanent Surgeon: Ivan Erickson D.P.M. Long Term Care Pharmacist: See intraoperative documentation Estimated blood loss: 5 No tourniquet IV fluids: 0 Urine output: 0 Complications: None Brief History: Pleasant 77-year-old male presents for surgical consultation, requesting amputation of his right third and fourth toes.? Within the past 3 months underwent a revascularization to the right lower extremity with improved pedal pulses this was done in [place] He is finishing cardiac rehab and hopeful to be discharged home from his correction.? He has dry stable gangrene to the right third and fourth toes.? Discussed risk of amputation to include but not limited to pain, bleeding, numbness, infection, surgical site dehiscence.? Nonhealing amputation site requiring higher level of amputation due to underlying peripheral vascular disease.? Patient is agreeable.? Understand that he may require a transmetatarsal potation or below-knee amputation should this fail.? He does not want to continue to monitor and allow autoamputation.? Will take advantage of the revascularization window having improved pedal pulses after revascularization to the right lower extremity recently.? Can be done outpatient under MAC anesthesia.? I reviewed at length with the patient, the risks, potential complications, benefits, alternatives, expectations, and typical outcomes associated with the surgery. The risks and potential complications were explained in detail, including but not limited to infection, wound dehiscence or soft tissue complications, bleeding and hematoma, chronic edema, neuritis or nerve damage producing numbness or chronic pain, CRPS, failure to relieve pain or worsening pain, thick / painful / unsightly scar, limited motion / stiffness, malposition, delayed union, malunion, or nonunion, fracture, reaction to implants, anesthetic complications, venous thromboembolism, and deformity recurrence.? I discussed the notion of no regrets with the patient as it pertains to complications and outcomes. The patient seemed to understand the nature of the proposed care and required convalescence. They asked appropriate questions, answered to their satisfaction. They are aware no guarantees can be made as to a satisfactory outcome and they understand there may be other possible unforeseen complications or outcomes not listed here that will be treated accordingly if they arise. There were no written or implied guarantees given to the patient. They gave informed consent to proceed.?? Procedure: Under mild sedation the patient was brought to the operating room and remained on the gurney in supine position. A timeout was performed. Anesthesia was then administered by the anesthesia service. Local anesthesia injected by myself consisting of 20 cc of one-to-one mixture 0.5% Marcaine plain and 1% lidocaine plain and a right third and fourth ray block fashion. No tourniquet was utilized during this procedure. Right lower extremity was then scrubbed, prepped and draped utilizing normal aseptic technique. Attention was directed to the right third and fourth toes where a full-thickness incision with a #15 blade was performed circumferentially around the base of the right third and fourth toes and these were then disarticulated at the right third and fourth metatarsal phalangeal joint and passed from the operative field. The full-thickness incision was made at the line of demarcation and within healthy tissue. Skin bleeding appreciated intraoperatively. Copious amounts of sterile saline solution utilized for irrigation within the incision. Extensor and flexor tendons transected under traction. Subcutaneous tissue and deep fascia reapproximated utilizing 3-0 Vicryl. Skin reapproximated utilizing 3-0 nylon. The incision was then dressed with Adaptic, sterile 4 x 4, Kerlix and Prashant wrap. Cam boot was then applied. Patient tolerated the procedure and anesthesia well and was transferred to the PACU with vital signs stable and vascular status intact. Following a period of postop monitoring he will be discharged home is to be nonweightbearing to the right lower extremity. Will follow-up in podiatry clinic next week for his first surgical dressing change. Is on doxycycline which she will continue throughout the perioperative period planning on 14 days total.
[2022-04-23 11:37] VITALS: BP 119/66; PULSE 87; RESP 18; TEMP 36.3; O2SAT 94
--- NOTE | 2022-04-23 14:18 | ANE.PACU2 ---
Inpatient post-anesthesia follow up: Airway intact: Yes Vital signs: Temperature 97.4 F Pulse Rate 87 Respiratory Rate 18 Blood Pressure 119/66 Pulse Oximetry 94 Oxygen Delivery Me thod Room Air Oxygen Flow Rate 6 Fraction of Inspir ed Oxygen Hydration adequate: Yes Nausea and vomiting: No Pain level: 1 Mental status: Baseline
== END 2022-04-23 12:15 | disposition home or self-care (01) ==
PROVIDERS: PCP Family Medicine; Visit Provider Podiatrist Foot & Ankle Surgery
PROC: (CPT 28820; principal; 2022-04-23 11:30)
DX: I96 Gangrene, not elsewhere classified (principal); J44.9 Chronic obstructive pulmonary disease, unspecified; I25.10 Atherosclerotic heart disease of native coronary artery without angina pectoris; Z95.1 Presence of aortocoronary bypass graft; Z95.0 Presence of cardiac pacemaker; E78.5 Hyperlipidemia, unspecified; Z79.84 Long term (current) use of oral hypoglycemic drugs; Z79.82 Long term (current) use of aspirin; E11.22 Type 2 diabetes mellitus with diabetic chronic kidney disease; I13.0 Hypertensive heart and chronic kidney disease with heart failure and stage 1 through stage 4 chronic kidney disease, or unspecified chronic kidney disease; N18.2 Chronic kidney disease, stage 2 (mild); I50.9 Heart failure, unspecified; E66.9 Obesity, unspecified; G47.33 Obstructive sleep apnea (adult) (pediatric); Z87.891 Personal history of nicotine dependence
CPT/HCPCS: 28820 ×2; 88305; 88311; J2704; J3010; J3490; J7030

== ENCOUNTER → 2022-04-28 12:57 | Outpatient (BNVA) | payer MEDICARE, OTHER, SELFPAY | PROVIDERS: PCP Family Medicine; Visit Provider Podiatrist Foot & Ankle Surgery | DX: Z45.010 Encounter for checking and testing of cardiac pacemaker pulse generator [battery] (principal); Z98.890 Other specified postprocedural states; I73.9 Peripheral vascular disease, unspecified; N18.31 Chronic kidney disease, stage 3a; G62.9 Polyneuropathy, unspecified | CPT/HCPCS: 93280; 99024; 99214 ==

== ENCOUNTER → 2022-05-06 14:48 | Outpatient (BNVA) | payer MEDICARE, OTHER, SELFPAY | PROVIDERS: PCP Family Medicine; Visit Provider Podiatrist Foot & Ankle Surgery | DX: I73.9 Peripheral vascular disease, unspecified (principal); L97.516 Non-pressure chronic ulcer of other part of right foot with bone involvement without evidence of necrosis; N18.31 Chronic kidney disease, stage 3a; G62.9 Polyneuropathy, unspecified; Z98.890 Other specified postprocedural states | CPT/HCPCS: 99214 ==

== ENCOUNTER → 2022-05-13 14:30 | Outpatient (BNVA) | payer MEDICARE, OTHER, SELFPAY | PROVIDERS: PCP Family Medicine; Visit Provider Podiatrist Foot & Ankle Surgery | DX: L97.516 Non-pressure chronic ulcer of other part of right foot with bone involvement without evidence of necrosis (principal); I73.9 Peripheral vascular disease, unspecified; N18.31 Chronic kidney disease, stage 3a; G62.9 Polyneuropathy, unspecified; Z98.890 Other specified postprocedural states; E11.621 Type 2 diabetes mellitus with foot ulcer | CPT/HCPCS: 99024; 99213 ==

== ENCOUNTER → 2022-05-27 08:57 | Outpatient (BNVA) | payer MEDICARE, OTHER, SELFPAY | PROVIDERS: PCP Family Medicine; Visit Provider Internal Medicine Pulmonary Disease | DX: R06.02 Shortness of breath (principal); J44.9 Chronic obstructive pulmonary disease, unspecified; Z87.891 Personal history of nicotine dependence; Z95.1 Presence of aortocoronary bypass graft | CPT/HCPCS: 99214 ==

== ENCOUNTER → 2022-06-03 13:48 | Outpatient (BNVA) | payer MEDICARE, OTHER, SELFPAY | PROVIDERS: PCP Family Medicine; Visit Provider Podiatrist Foot & Ankle Surgery | DX: Z98.890 Other specified postprocedural states (principal); L97.516 Non-pressure chronic ulcer of other part of right foot with bone involvement without evidence of necrosis; I73.9 Peripheral vascular disease, unspecified; N18.31 Chronic kidney disease, stage 3a; G62.9 Polyneuropathy, unspecified | CPT/HCPCS: 99024; 99214 ==

== ENCOUNTER 2022-07-18 06:38 | Inpatient (IN) | payer MEDICARE, OTHER, SELFPAY ==
[2022-07-18] VITALS (59 sets, daily range): BP systolic 106–140; BP diastolic 28–68; PULSE 70–115; RESP 14–47; TEMP 36.6–37; O2SAT 89–99; BMI 27.2; BMI 28.3
--- NOTE | 2022-07-18 06:45 | ECG_ITS ---
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 Measurements Intervals [place] Rate: 78 P: 107 GA: 160 QRS: -58 QRSD: 185 T: 88 QT: 426 QTc: 486 Interpretive Statements ELECTRONIC ATRIAL PACEMAKER ELECTRONIC VENTRICULAR PACEMAKER Compared to ECG 01/04/2022 15:41:31 No significant changes Electronically Signed On 07-19-2022 6:08:28 WHARFINGER CHIEF by Landy Yadav M.D. [id number]
--- NOTE | 2022-07-18 06:50 | XRR_ITS ---
PROCEDURE INFORMATION: Exam: XR Chest Exam date and time: 07/18/2022 7:00 AM Age: 77 years old Clinical indication: Shortness of breath; Additional info: SOB TECHNIQUE: Imaging protocol: Radiologic exam of the chest. Views: 1 view. COMPARISON: CR XR chest 2V* [id number] 07/09/2022 9:18 AM FINDINGS: Tubes, catheters and devices: Cardiac device noted overlying the left chest. Lungs: Increasing consolidation in the left lung base concerning for pneumonia. Questionable mild ground-glass density in the right lung base. Mild interstitial prominence and likely emphysematous changes. Pleural spaces: No pneumothorax. No pleural effusion. Heart/Mediastinum: The cardiomediastinal silhouette is within normal limits. Bones/joints: Median sternotomy wires noted. XR/XR chest 1V portable [id number] IMPRESSION: Increasing consolidation in the left lung base concerning for pneumonia.
--- NOTE | 2022-07-18 06:50 | ED_ITS ---
HPI - SOB/Dyspnea General: Chief Complaint: Shortness of Breath/Dyspnea Stated Complaint: SOB Time Seen by Provider: 07/18/22 06:45 History of Present Illness: HPI Narrative: Patient comes in with increasing shortness of breath. States that a week ago he was diagnosed with pneumonia by his primary care physician and started on steroids and antibiotics. States he is finished both of those. States that last night into this morning his breathing became more difficult. Was brought in by EMS and in route was given a nebulizer treatment which he states sig nificantly improved his breathing. Associated symptoms: Deny abdominal pain, chest pain, fever(s), nausea, palpitations, polyuria or vomiting Review of Systems Const: Denies: fever(s) or body aches Eyes: Denies: change in vision or blurry vision ENMT: Denies: throat pain or odynophagia Card: Denies: chest pain or palpitations Resp: Reports: dyspnea and productive cough GI: Denies: abdominal pain, nausea or vomiting : Denies: flank pain or dysuria Musc: Denies: neck pain or back pain Skin/Breast: Denies: rash or pruritus Neuro: Denies: headache(s) or numbness in extremities Psych: Denies: anxiety or change in appetite Endo: Denies: polyuria or excessive sweating PFSH ED PFSH: Medical History HAZEL (acute kidney injury) -HAZEL on CKD stage 2 -baseline Cr wnl -slight worsening in renal function likely due to diuresis, continue to monitor -avoid nephrotoxins, renally dose meds CAD (coronary artery disease) -follows up with Dr. Florez -s/p CABG Chronic anemia -baseline Hg around 10 Chronic kidney disease CKD (chronic kidney disease) stage 2, GFR 60-89 ml/min -baseline Cr wnl Congestive heart failure COPD (chronic obstructive pulmonary disease) Fracture, femoral Hemoptysis -hemoptysis noted with continued drop in Hg (10.9--->8.8) -continue to monitor H/H closely and continue to hold AC; INR-1.04; has been off heparin x > 72 hrs -Consult by Dr. 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 Unable to lay flat for imaging and then decompensated and had to be intubated -pending ALMAS, ANCA, anti-dsDNA, SAUL; ESR-19, CRP-6.0, C3-106, C4-24 HTN (hypertension) Non-insulin dependent diabetes mellitus -A1c-5.9 -accuchecks, ISS, hypoglycemia precautions -hold metformin -anticipate hyperglycemia with steroid use and acute illness -consistent carb diet as tolerated Obesity -BMI-31 kg/m2 DARIUS (obstructive sleep apnea) -CPAP qhs Peripheral arterial disease Smoker within last 12 months Surgical History Hx of CABG Hx of cholecystectomy Family History Mother CAD (coronary artery disease) Social History Smoking and tobacco status: former smoker Quit status (tobacco): has quit using tobacco Year quit tobacco: 2014 - 1ppd x 60 Second hand smoke exposure: No Smoking risk assessment/counseling performed?: Yes Alcohol intake: never Lives independently: Yes Household members: spouse Marital status: Current occupational status: retired History of recent travel: No Current gender identity: Male Physical Exam Const: COMMON NORMALS: no acute distress, patient oriented x3, healthy appearing and alert HENMT: COMMON NORMALS: normocephalic and atraumatic HEAD & SCALP: normocephalic and atraumatic Eye: COMMON NORMALS: Equal, round and reactive pupils present and EOMs intact bilaterally PUPIL: Yes Equal, round and reactive pupils present Neck/C-Spine: COMMON NORMALS: full ROM and supple Resp: OTHER: expiratory wheezes in all lung patel. Cardio: COMMON NORMALS: regular rate and regular rhythm RATE: regular rate RHYTHM: regular rhythm GI: COMMON NORMALS: Normal to inspection, nondistended, normoactive bowel sounds present, Soft to palpation and non-tender PALPATION: Yes Soft to palpation Back/Pelvis: COMMON NORMALS: thoracic and lumbar spine normal to inspection a nd no thoracic nor lumbar tenderness Extremity: COMMON NORMALS: normal to inspection and full ROM Neuro: COMMON NORMALS: patient oriented x3 SENSORIUM/ORIENTATION: Yes alert Psych: COMMON NORMALS: mental status grossly normal and cooperative Skin: COMMON NORMALS: no rashes or lesions noted and no wounds GENERAL SKIN EXAM: no rashes or lesions noted Course Vital Signs: Vital signs: Vital Signs Temperature 98.6 F 07/18/22 06:39 Pulse Rate 74 07/18/22 09:00 Respiratory Rate 18 07/18/22 09:00 Blood Pressure 132/44 07/18/22 09:00 Pulse Oximetry 97 07/18/22 09:00 Oxygen Delivery Me thod 07/18/22 09:00 Oxygen Flow Rate 3 07/18/22 09:00 MDM - SOB/Dyspnea Medical Decision Making Patient comes in with increasing shortness of breath. States that a week ago he was diagnosed with pneumonia by his primary care physician and started on steroids and antibiotics. States he is finished both of those. States that la st night into this morning his breathing became more difficult. Was brought in by EMS and in route was given a nebulizer treatment which he states significantly improved his breathing. On physical exam he has mild expiratory wheezes in all lung patel. He denies fever, vomiting, diarrhea. Will check labs, give DuoNeb, steroids, x-ray, and reassess. On reassessment I talked to the patient about the test results. He continues to require supplemental oxygen. We will start IV antibiotics. I discussed the case with the hospitalist, and we will admit the patient for further work-up and treatment of his pneumonia. Lab Data 07/18/22 07:52 07/18/22 07:52 Labs/Radiology: Radiology Impressions Chest X-Ray 07/18/22 06:50 IMPRESSION: Increasing consolidation in the left lung base concerning for pneumonia. Chest CT 07/18/22 09:07 IMPRESSION: 1. Mild airspace opacities in the left lung concerning for pneumonia. 2. Trace left-sided pleural fluid. 3. Emphysematous disease. Laboratory Results WBC 13.0 10^3/uL (4.0-10.0) H 07/18/22 07:52 RBC 4.13 10^6/uL (4.1-5.3) 07/18/22 07:52 Hgb 9.7 g/dL (11.7-16.6) L 07/18/22 07:52 Hct 32.8 % (42.0-52.0) L 07/18/22 07:52 MCV 79.4 fl (80-94) L 07/18/22 07:52 MCH 23.5 pg (28.0-34.0) L 07/18/22 07:52 MCHC 29.6 g/dL (30.0-36.0) L 07/18/22 07:52 RDW 16.6 % (12.1-15.1) H 07/18/22 07:52 Plt Count 270 10^3/cmm (130-400) 07/18/22 07:52 MPV 9.3 fL (7.4-10.4) 07/18/22 07:52 Neut % (Auto) 77.3 % 07/18/22 07:52 Lymph % (Auto) 13.3 % 07/18/22 07:52 [place] % (Auto) 6.7 % 07/18/22 07:52 Eos % (Auto) 1.6 % 07/18/22 07:52 Baso % (Auto) 0.3 % 07/18/22 07:52 Neut # (Auto) 10.05 10^3/uL (1.8-7.7) H 07/18/22 07:52 Lymph # (Auto) 1.7 10^3/uL (0.8-4.8) 07/18/22 07:52 [place] # (Auto) 0.9 10^3/uL (0.2-0.9) 07/18/22 07:52 Eos # (Auto) 0.2 10^3/uL (0.0-0.8) 07/18/22 07:52 Baso # (Auto) 0.0 10^3/uL (0.0-0.1) 07/18/22 07:52 Nucleated RBC % (auto) 0 % 07/18/22 07:52 Nucleated RBCs # 0.0 /100WBC 07/18/22 07:52 Sodium 135 mmol/L (136-145) L 07/18/22 07:52 Potassium 4.0 mmol/L (3.5-5.1) 07/18/22 07:52 Chloride 95 mmol/L (98-107) L 07/18/22 07:52 Carbon Dioxide 28 mmol/L (22-29) 07/18/22 07:52 Anion Gap 16.0 (5-19) 07/18/22 07:52 BUN 38 mg/dL (8-23) H 07/18/22 07:52 Creatinine 1.4 mg/dL (0.7-1.2) H 07/18/22 07:52 GFR Calculation Not Reportable 07/18/22 07:52 Glucose 107 mg/dL (65-115) 07/18/22 07:52 Calculated Osmolality 290 mOsm/kg (285-295) 07/18/22 07:52 Calcium 8.9 mg/dL (8.5-10.5) 07/18/22 07:52 Total Bilirubin 0.2 mg/dL (0.15-1.2) 07/18/22 07:52 AST 21 U/L (0-40) 07/18/22 07:52 ALT 24 U/L (0-41) 07/18/22 07:52 Alkaline Phosphatase 121 U/L (40-130) 07/18/22 07:52 Total Protein 7.5 g/dL (6.6-8.7) 07/18/22 07:52 Albumin 3.4 g/dL (3.5-5.2) L 07/18/22 07:52 Globulin 4.1 g/dL (1.3-4.6) 07/18/22 07:52 Discharge Plan Discharge Patient Disposition: Admitted As Inpatient Clinical Impression: Pneumonia, Hypoxia Condition: Stable Coding Level of Care Code ED Laborer Aquatic Life for Chg Fwd Exam Comprehensive
[2022-07-18] MEDS: ipratropium-albuterol 3 mL Neb INHALATION ×3 (07:25→19:55)
[2022-07-18 08:02] LABS: Basophils % 0.3 %; Eosinophils # 0.2 10^3/uL (0.0-0.8); Eosinophils % 1.6 %; Hematocrit 32.8 % (42.0-52.0); Hemoglobin 9.7 g/dL (11.7-16.6); Lymphocytes # 1.7 10^3/uL (0.8-4.8); Lymphocytes % 13.3 %; Mean Corpuscular HGB Conc 29.6 g/dL (30.0-36.0); Mean Corpuscular Hemoglobin 23.5 pg (28.0-34.0); Mean Corpuscular Volume 79.4 fl (80-94); Mean Platelet Volume 9.3 fL (7.4-10.4); Monocytes # 0.9 10^3/uL (0.2-0.9); Monocytes % 6.7 %; Neutrophils # 10.05 10^3/uL (1.8-7.7); Neutrophils % 77.3 %; Nucleated Red Blood Cells % 0 %; Platelet Count 270 10^3/cmm (130-400); Red Blood Count 4.13 10^6/uL (4.1-5.3); Red Cell Distribution Width 16.6 % (12.1-15.1)
[2022-07-18 08:23] LABS: Alanine Aminotransferase 24 U/L (0-41); Albumin Level 3.4 g/dL (3.5-5.2); Alkaline Phosphatase 121 U/L (40-130); Aspartate Amino Transferase 21 U/L (0-40); Blood Urea Nitrogen 38 mg/dL (8-23); Calcium 8.9 mg/dL (8.5-10.5); Carbon Dioxide 28 mmol/L (22-29); Chloride 95 mmol/L (98-107); Globulin 4.1 g/dL (1.3-4.6); Glucose 107 mg/dL (65-115); Osmolality Calculated 290 mOsm/kg (285-295); Sodium 135 mmol/L (136-145); Total Bilirubin 0.2 mg/dL (0.15-1.2); Total Protein 7.5 g/dL (6.6-8.7)
[2022-07-18] MEDS: cefTRIAXone 1,000 MG in sodium chloride 0.9% (plus) 50 ML 100 MG IV (08:58)
--- NOTE | 2022-07-18 09:07 | CTR_ITS ---
PROCEDURE INFORMATION: Exam: CT Chest With Contrast; Diagnostic Exam date and time: 07/18/2022 9:19 AM Age: 77 years old Clinical indication: Cough and dyspnea; Prior surgery; Additional info: Pneumonia TECHNIQUE: Imaging protocol: Diagnostic computed tomography of the chest with contrast. Radiation optimization: All CT scans at this facility use at least one of these dose optimization techniques: automated exposure control; mA and/or kV adjustment per patient size (includes targeted exams where dose is matched to clinical indication); or iterative reconstruction. Contrast material: OMNI 350; Contrast volume: 100 ml; Contrast route: INTRAVENOUS (IV); COMPARISON: CT lung screening [id number] 03/10/2022 1:43 PM RADIATION DOSE METRICS: Total DLP (mGy-cm): 506.8 FINDINGS: Tubes, catheters and devices: Cardiac device noted overlying the left chest. Lungs: Emphysematous disease. Focal dense consolidation in the anterior segment of the left lower lobe near the diaphragmatic margin. Patchy peripheral ground-glass and dense opacities in the anterior, lateral, and posterior basal segments of the left lower lobe. Minimal persistent scarring in the basal segments of the left lower lobe similar to prior exam. Pleural spaces: Trace left-sided pleural fluid. Heart: The heart is within normal limits for size. There is no evidence of pericardial abnormality. No coronary artery calcifications noted. Coronary arteries: Moderate coronary artery calcifications noted. Mediastinal space: Postsurgical changes in the mediastinum. Lymph nodes: Unremarkable. No enlarged lymph nodes. Vasculature: Unremarkable. No aortic aneurysm. Gallbladder and bile ducts: The gallbladder is surgically absent. Bones/joints: Median sternotomy wires noted. Multilevel degenerative changes in the spine. Chronic mild wedging deformities in the spine. Soft tissues: Unremarkable. CT/CT chest w con* [id number] IMPRESSION: 1. Mild airspace opacities in the left lung concerning for pneumonia. 2. Trace left-sided pleural fluid. 3. Emphysematous disease.
[2022-07-18] MEDS: iohexol 350 mg/mL 500 mL Btl (per mL) IV (09:23)
[2022-07-18] MEDS: azithromycin 500 MG in sodium chloride 0.9% 250 ML 250 MG IV ×2 (10:01→16:32)
--- NOTE | 2022-07-18 10:14 | PM.HP ---
Providers/Chief Complaint Primary Care Provider: Hema Hartman MD Chief Complaint: SOB History of Present Illness Patience Salcedo is a 77 year old male presented to the hospital with complaint of increasing shortness of breath. He has a past medical history of CKD, coronary disease status post CABG, chronic anemia, chronic kidney disease, congestive heart failure, COPD, hypertension, diabetes mellitus, obstructive sleep apnea. He was recently diagnosed with pneumonia outpatient and was started on steroids and antibiotics by his primary care doctor. He completed both courses and because of worsening shortness of breath and having difficulty breathing presented to the hospital. Received nebulizer treatment in route that did improve his breathing. Denies abdominal pain, chest pain, fever, nausea, palpitations, polyuria or vomiting. Patient also complains of left lower extremity swelling that has occurred in the last 2 to 3 days. He does not believe that some leg dilated was harvested for his CABG. Calf is nontender. Does not take the flu shot every year but has been vaccinated for COVID. States he is not interested for any flu shots, pneumonia vaccine, COVID-vaccine during his hospital stay. Patient says he has a history of peripheral arterial disease and has had stent placed in bilateral lower extremities. ER course: Blood pressure 132/44, respiratory rate 18, pulse 74, temperature 98.6, on 3 L nasal cannula. Chest x-ray shows increasing consolidation in left lung base concerning for pneumonia and CT chest shows the same with trace left-sided pleural fluid and emphysematous disease. Lactic acid 3.5, WBC 13,000 hemoglobin 9.7, RDW 16.6, creatinine 1.4 Medications/Allergies Home Medications Medication Instructions Recorded Confirmed Last Taken Type atorvastatin 40 mg tablet 40 mg PO DAILY 01/07/20 06/03/22 04/22/22 21:00 History garlic 1,000 mg capsule 1,000 mg PO DAILY 01/07/20 06/03/22 04/23/22 08:00 History metformin 500 mg tablet,extended 500 mg PO BID 01/07/20 06/03/22 04/22/22 08:00 History release 24 hr montelukast 10 mg tablet 10 mg PO DAILY 01/07/20 06/03/22 04/23/22 08:00 History multivitamin (Multiple Vitamins 1 tab PO DAILY 01/07/20 06/03/22 04/22/22 21:00 History tablet) omega 8-fwx-mox-fish oil 1,000 mg 1 cap PO DAILY 01/07/20 06/03/22 04/23/22 08:00 History (120 mg-180 mg) capsule (Fish Oil) albuterol sulfate 90 mcg/actuation 1 inh inhalation DAILY 03/03/20 06/03/22 04/22/22 08:00 History aerosol inhaler (Ventolin HFA) finasteride 5 mg tablet 5 mg PO DAILY 03/07/20 06/03/22 04/23/22 08:00 History clopidogrel 75 mg tablet 75 mg PO DAILY #90 tabs 05/12/20 06/03/22 04/22/22 08:00 Rx fluticasone fur. 100 mcg-umeclid 1 inh inhalation DAILY 11/18/20 06/03/22 04/22/22 08:00 History 62.5 mcg-vilant 25 mcg inhalat.powder (Trelegy Ellipta) fluticasone propionate 50 1 spray intranasal DAILY PRN Dry 02/02/21 06/03/22 01/04/22 History mcg/actuation nasal Nasal Passages spray,suspension furosemide 20 mg tablet 20 mg PO DAILY 07/15/21 06/03/22 04/22/22 08:00 History guaifenesin 600 mg tablet, 600 mg PO DAILY 12/17/21 06/03/22 04/23/22 08:00 History extended release 12 hr (Mucinex) aspirin 81 mg tablet,delayed 81 mg PO DAILY #90 tabs 12/28/21 06/03/22 04/23/22 08:00 Rx release (Adult Aspirin Regimen) cholecalciferol (vitamin D3) 10 10 mcg PO DAILY 02/15/22 06/03/22 04/23/22 08:00 History mcg (400 unit) capsule famotidine 20 mg tablet 20 mg PO BID 02/15/22 06/03/22 04/22/22 18:00 History carvedilol 3.125 mg tablet (Coreg) 3.125 mg PO BID #180 tabs 04/21/22 06/03/22 04/23/22 08:00 Rx Allergies Allergy/AdvReac Type Severity Reaction Status Date / Time No Known Allergies Allergy Verified 06/03/22 13:51 PFSH Acute PFSH: Medical History HAZEL (acute kidney injury) -HAZEL on CKD stage 2 -baseline Cr wnl -slight worsening in renal function likely due to diuresis, continue to monitor -avoid nephrotoxins, renally dose meds CAD (coronary artery disease) -follows up with Dr. Florez -s/p CABG Chronic anemia -baseline Hg around 10 Chronic kidney disease CKD (chronic kidney disease) stage 2, GFR 60-89 ml/min -baseline Cr wnl Congestive heart failure COPD (chronic obstructive pulmonary disease) Fracture, femoral Hemoptysis -hemoptysis noted with continued drop in Hg (10.9--->8.8) -continue to monitor H/H closely and continue to hold AC; INR-1.04; has been off heparin x > 72 hrs -Consult by Dr. 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 Unable to lay flat for imaging and then decompensated and had to be intubated -pending ALMAS, ANCA, anti-dsDNA, SAUL; ESR-19, CRP-6.0, C3-106, C4-24 HTN (hypertension) Non-insulin dependent diabetes mellitus -A1c-5.9 -accuchecks, ISS, hypoglycemia precautions -hold metformin -anticipate hyperglycemia with steroid use and acute illness -consistent carb diet as tolerated Obesity -BMI-31 kg/m2 DARIUS (obstructive sleep apnea) -CPAP qhs Peripheral arterial disease Smoker within last 12 months Surgical History Hx of CABG Hx of cholecystectomy Family History Mother CAD (coronary artery disease) Social History Smoking and tobacco status: former smoker Quit status (tobacco): has quit using tobacco Year quit tobacco: 2015 - 1ppd x 60 Second hand smoke exposure: No Smoking risk assessment/counseling performed?: Yes Alcohol intake: never Lives independently: Yes Household members: spouse Marital status: Current occupational status: retired History of recent travel: No Current gender identity: Male Vitals/I&O/Wt Last Vital Signs Temp 98.6 F 07/18/22 06:39 Pulse 74 07/18/22 09:00 Resp 18 07/18/22 09:00 BP 132/44 07/18/22 09:00 Pulse Ox 97 07/18/22 09:00 O2 Del Method 07/18/22 09:00 O2 Flow Rate 3 07/18/22 09:00 07/17/22 07/18/22 07/18/22 22:59 06:59 14:59 Intake Total 50 / 50 Balance 50 / 50 Weight last 48 hrs Weight 86.183 kg Physical Exam Narrative: General: Alert oriented x3, Male sitting up on the edge of bed on 2 L nasal cannula with daughter and her fianc? present at bedside. No acute respiratory distress and breathing comfortably. HEENT: Normocephalic, atraumatic, EOMI, breathing normally. Cardio: Regular rate, normal S1-S2, no murmurs, AICD in place. Respiratory: Good bilateral air entry, no wheezes no rhonchi appreciated GI: Abdomen soft, nontender, nondistended, bowel sounds + Behavior: Appropriate and cooperative Extremities: Pulses 2+, no edema, no cyanosis Data 07/18/22 07:52 07/18/22 07:52 A&P Assessment and plan (1) Pneumonia: (2) Hypoxia: (3) Peripheral arterial disease with history of revascularization: (4) Ex-smoker for more than 1 year: (5) Peripheral arterial disease: (6) Chronic kidney disease: Qualifiers: Chronic kidney disease stage: stage 3 (moderate) Chronic kidney disease stage 3 subtype: stage 3a (GFR 45-59) Qualified Code(s): N18.31 - Chronic kidney disease, stage 3a (7) COPD (chronic obstructive pulmonary disease): Qualifiers: COPD type: unspecified COPD Qualified Code(s): J44.9 - Chronic obstructive pulmonary disease, unspecified (8) Hx of CABG: (9) Pneumonia: Qualifiers: Pneumonia type: due to unspecified organism Laterality: bilateral Lung location: lower lobe of lung Qualified Code(s): J18.9 - Pneumonia, unspecified organism (10) COPD exacerbation: (11) Hypoxia: (12) Community acquired pneumonia: Qualifiers: Laterality: right Lung location: lower lobe of lung Qualified Code(s): J18.9 - Pneumonia, unspecified organism Plan #Left upper lobe pneumonia #Rule out COVID and flu #CKD, at baseline #CAD status post CABG #Chronic anemia, 9 range at baseline #COPD #Hypertension #Diabetes mellitus #Obstructive sleep apnea #History of heart failure ? Started ceftriaxone azithromycin ? Check procalcitonin ? Check blood cultures ? Lactic acid 3.5. Continue to trend ? Normal saline bolus 500, placed on normal saline 75 cc/h thereafter. ? Check influenza swab, check COVID swab ? Cardiac diet ? Check ultrasound bilateral lower extremities ? Check bacterial antigens Streptococcus, Legionella, MRSA nares swab ? Sliding scale insulin low-dose intensity - DuoNeb every 4 hours scheduled. ? Continue aspirin, Plavix, Coreg, famotidine. ? Hold Lasix today patient appears dehydrated ? Family present at bedside DVT prophylaxis: Heparin SQ twice daily Full code. Patient states he has not thought about this and is undecided at this time. Attestations Medical Necessity Statement*: Greater than 2 midnight stay for management of left upper lobe pneumonia. Coding Level of Care Code Acute Machine Bander And Cellophaner for [facility] Diagnoses Pneumonia J18.9 Hypoxia R09.02 Peripheral arterial disease with history of revascularization I73.9; Z98.890 Ex-smoker for more than 1 year Z87.891 Peripheral arterial disease I73.9 Chronic kidney disease N18.31 Chronic kidney disease stage: stage 3 (moderate) Chronic kidney disease stage 3 subtype: stage 3a (GFR 45-59) COPD (chronic obstructive pulmonary disease) J44.9 COPD type: unspecified COPD Hx of CABG Z95.1 Pneumonia J18.9 Pneumonia type: due to unspecified organism Laterality: bilateral Lung location: lower lobe of lung COPD exacerbation J44.1 Hypoxia R09.02 Community acquired pneumonia J18.9 Laterality: right Lung location: lower lobe of lung
[2022-07-18 10:44] LABS: Lactic Sepsis W/Reflex 3.5 mmol/L (0.5-2.2)
[2022-07-18 10:50] LABS: Procalcitonin 0.09 ng/mL (0-0.5); Reflex Lactate Order REFLEX LACTIC ORDERD
[2022-07-18] MEDS: heparin 5,000 unit/mL INJ 1 mL 5000 UNIT SUBCUT ×2 (12:17→22:12)
[2022-07-18 13:42] LABS: Influenza A by IFA positive (Negative); Influenza B by IFA negative (Negative)
[2022-07-18 15:02] LABS: Adenovirus Not Detected (NOT DETECT); Chlamydia Pneumoniae Not Detected (NOT DETECT); Coronavirus 229E,HKU1,NL63,OC4 Not Detected (NOT DETECT); Human Metapneumovirus Not Detected (NOT DETECT); Human Rhinovirus/Enterovirus Not Detected (NOT DETECT); Influenza A Detected (NOT DETECT); Influenza A H1 Not Detected (NOT DETECT); Influenza A H1-2009 Not Detected (NOT DETECT); Influenza A H3 Detected (NOT DETECT); Influenza B Not Detected (NOT DETECT); Mycoplasma Pneumoniae Not Detected (NOT DETECT); Parainfluenza Virus Type 1 Not Detected (NOT DETECT); Parainfluenza Virus Type 2 Not Detected (NOT DETECT); Parainfluenza Virus Type 3 Not Detected (NOT DETECT); Parainfluenza Virus Type 4 Not Detected (NOT DETECT); Respiratory Syncytial Virus A Not Detected (NOT DETECT); Respiratory Syncytial Virus B Not Detected (NOT DETECT); SARS-COV-2 Not Detected (NOT DETECT)
[2022-07-18 15:34] LABS: Influenza A Detected (NOT DETECT); Influenza A H1 Not Detected (NOT DETECT); Influenza A H1-2009 Not Detected (NOT DETECT); Influenza A H3 Detected (NOT DETECT); Influenza B Not Detected (NOT DETECT); Results from Genmark
[2022-07-18] MEDS: sodium chloride 0.9% 250 ML IV (16:32)
[2022-07-18] MEDS: famotidine 20 mg Tablet PO (16:35)
[2022-07-18] MEDS: carvedilol 3.125 mg Tablet PO (16:35)
[2022-07-18 16:59] LABS: Glucose Point of Care 237 mg/dL (70-110)
[2022-07-18] MEDS: oseltamivir phosphate 30 mg Capsule PO (17:32)
[2022-07-18 19:56] LABS: Lactic Sepsis W/Reflex 3.2 mmol/L (0.5-2.2)
[2022-07-18 21:17] LABS: Reflex Lactate Order REFLEX LACTIC ORDERD
[2022-07-18 21:23] LABS: Glucose Point of Care 202 mg/dL (70-110)
[2022-07-18 23:08] LABS: Lactic Acid level (Lactate) 3.2 mmol/L (0.5-2.2)
[2022-07-19] VITALS (13 sets, daily range): BP systolic 101–127; BP diastolic 55–68; PULSE 71–90; RESP 8–26; TEMP 36.4–37.1; O2SAT 93–98
[2022-07-19 02:08] LABS: Basophils % 0.1 %; Hematocrit 27.4 % (42.0-52.0); Hemoglobin 8.1 g/dL (11.7-16.6); Lymphocytes # 0.6 10^3/uL (0.8-4.8); Mean Corpuscular HGB Conc 29.6 g/dL (30.0-36.0); Mean Corpuscular Hemoglobin 23.5 pg (28.0-34.0); Mean Corpuscular Volume 79.4 fl (80-94); Mean Platelet Volume 9.7 fL (7.4-10.4); Monocytes # 0.3 10^3/uL (0.2-0.9); Monocytes % 3.4 %; Neutrophils # 7.05 10^3/uL (1.8-7.7); Nucleated Red Blood Cells % 0 %; Platelet Count 243 10^3/cmm (130-400); Red Blood Count 3.45 10^6/uL (4.1-5.3); Red Cell Distribution Width 16.8 % (12.1-15.1)
[2022-07-19 02:28] LABS: Anion Gap 12.9 (5-19); Blood Urea Nitrogen 39 mg/dL (8-23); Calcium 8.5 mg/dL (8.5-10.5); Carbon Dioxide 27 mmol/L (22-29); Chloride 102 mmol/L (98-107); Glucose 187 mg/dL (65-115); Magnesium 1.9 mg/dL (1.7-2.3); Osmolality Calculated 300 mOsm/kg (285-295); Potassium 3.9 mmol/L (3.5-5.1); Sodium 138 mmol/L (136-145)
--- NOTE | 2022-07-19 04:32 | PM.PN ---
Subjective Subjective: Patient is here with influenza A and post viral bacterial pneumonia Currently on Tamiflu and antibiotics Afebrile Hemodynamically stable No sign of sepsis or leukocytosis Vitals/I&O/Wt Last Vital Signs Temp 97.8 F 07/19/22 00:00 Pulse 71 07/19/22 00:00 Resp 22 H 07/19/22 00:00 BP 105/66 07/19/22 00:00 Pulse Ox 95 07/19/22 00:00 O2 Del Method 07/18/22 19:57 O2 Flow Rate 2 07/18/22 20:02 07/18/22 07/18/22 07/19/22 14:59 22:59 06:59 Intake Total 300 / 300 1680 / 1980 600 / 2580 Output Total 550 / 550 250 / 800 Balance 300 / 300 1130 / 1430 350 / 1780 Weight last 48 hrs Weight 89.358 kg Weight 86.183 kg Physical Exam Narrative: Currently doing well on nasal cannula Hemodynamically stable Afebrile S1, S2 Clinically dehydrated Abdomen soft Eomi PERRLA Chest auscultation positive crackles mobile. Left leg is swollen as compared to right Data 07/19/22 01:22 07/19/22 01:22 Micro: Microbiology 07/18/22 12:15 Legionella Urinary Antigen - Final Urine,Clean Catch 07/18/22 10:47 Blood Culture - Preliminary Blood SPECIMEN COLLECTED 07/18/22 10:42 Blood Culture - Preliminary Blood SPECIMEN COLLECTED A&P Assessment and plan (1) Pneumonia: (2) Hypoxia: (3) Peripheral arterial disease with history of revascularization: (4) Influenza: (5) Peripheral arterial disease: (6) Chronic kidney disease: Qualifiers: Chronic kidney disease stage: stage 3 (moderate) Chronic kidney disease stage 3 subtype: stage 3a (GFR 45-59) Qualified Code(s): N18.31 - Chronic kidney disease, stage 3a (7) Peripheral neuropathy: (8) Hx of CABG: Plan Post viral bacterial pneumonia Influenza A positive Continue steroids and DuoNeb Continue antibiotics Currently doing well on nasal cannula Hypoxia related to pneumonia History of congestive heart failure with mild active exacerbation: We will give him Lasix Chronic kidney disease creatinine seems around baseline Full code Cardiac diet Full code for now We discussed goals of care PT evaluation Patient stating at baseline uses 2 to 3 L of oxygen on as-needed basis at home currently he is doing well on 2 L Attestations Medical Necessity Statement*: Possible discharge in next 48 hours Time Spent in Patient Care: 40 Coding Level of Care Code Acute Time Study Technician for [facility] Diagnoses Pneumonia J18.9 Hypoxia R09.02 Peripheral arterial disease with history of revascularization I73.9; Z98.890 Influenza J11.1 Peripheral arterial disease I73.9 Chronic kidney disease N18.31 Chronic kidney disease stage: stage 3 (moderate) Chronic kidney disease stage 3 subtype: stage 3a (GFR 45-59) Peripheral neuropathy G62.9 Hx of CABG Z95.1
[2022-07-19 06:30] LABS: Glucose Point of Care 163 mg/dL (70-110)
[2022-07-19] MEDS: acetaminophen 325 mg Tablet 650 MG PO (06:39)
[2022-07-19] MEDS: ipratropium-albuterol 3 mL Neb INHALATION ×4 (07:44→20:02)
[2022-07-19 08:09] LABS: Lactic Sepsis W/Reflex 1.5 mmol/L (0.5-2.2)
[2022-07-19] MEDS: atorvastatin 40 mg Tablet PO (08:43)
[2022-07-19] MEDS: clopidogrel 75 mg Tablet PO (08:43)
[2022-07-19] MEDS: azithromycin 250 mg Tablet 500 MG PO (08:43)
[2022-07-19] MEDS: carvedilol 3.125 mg Tablet PO ×2 (08:43→17:43)
[2022-07-19] MEDS: aspirin 81 mg EC Tablet PO (08:43)
[2022-07-19] MEDS: heparin 5,000 unit/mL INJ 1 mL 5000 UNIT SUBCUT ×2 (08:43→21:19)
[2022-07-19] MEDS: famotidine 20 mg Tablet PO ×2 (08:43→17:43)
[2022-07-19] MEDS: cefTRIAXone 1,000 MG in sodium chloride 0.9% (plus) 50 ML 100 MG IV (08:46)
--- NOTE | 2022-07-19 10:49 | PC.CHAP ---
Pastoral Care Encounter/Spiritual Assessment Type of Contact [] Declined targeteer visit [] Patient/Family/Request visit [] Outpatient visit [] Follow-up visit [] Physician referral [] Code/Alert [x] Routine visit [] Staff referral [] Actively dying [] Patient sleeping [] Family support [] [] Out of room [] Palliative care [] [] Receiving care in room [] Pre-surgical visit [] Trauma [] Long length of stay [] ICU visit [x] Other: isolation Relational/Emotional Strength [] Patient feels connected with others/family/visitors/staff [] Distress [] Loneliness/isolation [] Abandonment Spirituality of Patient [] Person of Kayla [] Attends Hindu of their Kayla [] Believes in Prayer [] Reads Bible or Confucianism materials [] There are Spiritual issues to be addressed Director [place] Interventions [] Prayer [] Active listening [] Non-anxious presence [] Spiritual/emotional support [] Crisis/trauma care [] Spiritual counseling [] Bereavement support [] Provided bereavement packet [] Provided Bible/devotional materials [] Provided toy/stuffed animal, coloring book to patient or family member [] Provided Communion [] Anointing/[place] [] Salvation [] Completed spiritual assessment [] Other: Impact on Illness or Injury [] Angry [] Fearful [] Anxious [] Often cries [] Exhaustion [] Unable to work [] Unable to attend rastafarian [] Unable to walk/stand [] Unable to read [] Unable to drive [] Unable to eat/drink [] Unable to sleep [] Unable to be with family [] Patient intubated [] Other: Summary Time spent with patient
--- NOTE | 2022-07-19 12:29 | USCV_ITS ---
Patience Salcedo Age: 77 Gender: M : 1945 Exam Date: 07/19/2022 13:15 Ordering Phys: Jose Raul Carrillo MD Technologist: Sim Huddleston [place] [facility] [place]: [place] edema PROCEDURES: The venous duplex Doppler examination of both lower extremities was performed in the standard fashion. The following venous structures were evaluated: common femoral vein, profunda vein, proximal portion of the greater saphenous vein, superficial femoral vein, and the popliteal vein. In addition, the posterior tibial and peroneal trunk were evaluated. Bilaterally, the common femoral, superficial femoral, profunda femoral, popliteal, posterior tibial, greater saphenous veins, and the peroneal trunk were identified and interrogated in the standard fashion. These veins were found to be easily compressible with spontaneous blood flow. No evidence of insufficiency or thrombus noted. FINDINGS: Normal 2-D Doppler and augmentation and compressibility throughout the lower extremity venous structures. Additional imaging through the proximal calf veins also reveals no thrombus. Limited evaluation of the greater saphenous vein is patent with no thrombus.. CONCLUSIONS No evidence of right lower extremity DVT. No evidence of left lower extremity DVT. Jono Galvan MD (Electronically Signed) Final Date: 19 July 2022 17:14 S
[2022-07-19 14:45] LABS: D Dimer 2.13 ug/mIFEU (0-0.59)
[2022-07-19] MEDS: FUROsemide 10 mg/mL SDV 4mL 40 MG IVP (15:19)
[2022-07-19 17:22] LABS: Glucose Point of Care 123 mg/dL (70-110)
[2022-07-19] MEDS: oseltamivir phosphate 30 mg Capsule PO (17:46)
[2022-07-19 20:49] LABS: Glucose Point of Care 133 mg/dL (70-110)
[2022-07-20] VITALS (12 sets, daily range): BP systolic 116–142; BP diastolic 54–67; PULSE 72–82; RESP 15–18; TEMP 36.4–37; O2SAT 91–98
[2022-07-20 04:18] LABS: Basophils % 0.2 %; Eosinophils # 0.1 10^3/uL (0.0-0.8); Eosinophils % 0.9 %; Hematocrit 28.4 % (42.0-52.0); Hemoglobin 8.2 g/dL (11.7-16.6); Lymphocytes # 1.8 10^3/uL (0.8-4.8); Lymphocytes % 15.2 %; Mean Corpuscular HGB Conc 28.9 g/dL (30.0-36.0); Mean Corpuscular Hemoglobin 22.8 pg (28.0-34.0); Mean Corpuscular Volume 78.9 fl (80-94); Mean Platelet Volume 9.6 fL (7.4-10.4); Monocytes # 0.6 10^3/uL (0.2-0.9); Monocytes % 5.3 %; Neutrophils # 9.35 10^3/uL (1.8-7.7); Neutrophils % 77.8 %; Nucleated Red Blood Cells % 0 %; Platelet Count 281 10^3/cmm (130-400); Red Cell Distribution Width 16.8 % (12.1-15.1)
[2022-07-20 04:28] LABS: Anion Gap 11.7 (5-19); Blood Urea Nitrogen 30 mg/dL (8-23); Calcium 8.3 mg/dL (8.5-10.5); Carbon Dioxide 31 mmol/L (22-29); Chloride 102 mmol/L (98-107); Glucose 87 mg/dL (65-115); Osmolality Calculated 298 mOsm/kg (285-295); Potassium 3.7 mmol/L (3.5-5.1); Sodium 141 mmol/L (136-145)
[2022-07-20] MEDS: levoFLOXacin 750 mg Tablet PO (05:21)
[2022-07-20 06:21] LABS: Glucose Point of Care 91 mg/dL (70-110)
--- NOTE | 2022-07-20 07:15 | PC.NURSE ---
Report received from Kylah HARPER at this time.
[2022-07-20] MEDS: ipratropium-albuterol 3 mL Neb INHALATION ×4 (07:51→19:51)
--- NOTE | 2022-07-20 08:14 | CT_ITS ---
WS: [id number] CTA OF THE CHEST WITH PULMONARY EMBOLISM PROTOCOL TECHNIQUE: High-resolution contrast enhanced CTA of the chest with coronal and sagittal reformatted i marlyns with pulmonary embolism protocol. MIP images are also reviewed. CLINICAL INFORMATION: hypoxia COMPARISON: None. DLP: 489.[address] scans at [facility] use at least one of these dose optimization techniques: automated e xposure control; mA and/or kV adjustment per patient size (includes targeted exams where dose is matc hed to clinical indication); or iterative reconstruction. FINDINGS: Proximal main pulmonary arteries are normal. Normal segmental and subsegmental pulmonary arteries. No evidence of pulmonary embolus. Small LEFT and tiny RIGHT pleural effusions. Moderate chronic emphysematous changes. Cardiomegaly. Pa tchy infiltrates in the LEFT greater than RIGHT lung base. Slight patchy infiltrates in the lingula a long the fissure. Prior sternotomy with CABG. Aortic calcification. Coronary calcification. Normal ca liber thoracic aorta. Enlarged anterior mediastinal lymph nodes the largest measuring 11 mm in short axis dimension. These are nonspecific but may be reactive. Enlarged subcarinal lymph nodes. No axilla ry lymphadenopathy. Adrenal glands are normal. Small moderate esophageal hiatal hernia. Cholecystectomy clips. Fatty atro phy of the pancreas. Moderate thoracic kyphosis. Anterior wedging in the mid to upper thoracic spine. CT/CT angio chest PE protcl [id number] IMPRESSION: 1. No evidence of pulmonary embolus. 2. Small LEFT greater than RIGHT pleural effusions with compressive atelectasi s in the lung bases. Pleural effusions progressed compared to July 18, 2022 3. Slight patchy infiltrates in the LEFT greater than RIGHT lung base and ling cassius also slightly progressed. Recommend correlation for pneumonia. 4. Cardiomegaly. Prior CABG. 5. Enlarged anterior mediastinal and subcarinal lymph nodes nonspecific but un changed since July 18, 2022 6. Small to moderate esophageal hiatal hernia.
[2022-07-20] MEDS: atorvastatin 40 mg Tablet PO (09:03)
[2022-07-20] MEDS: oseltamivir phosphate 30 mg Capsule PO ×2 (09:03→18:03)
[2022-07-20] MEDS: acetaminophen 325 mg Tablet 650 MG PO (09:03)
[2022-07-20] MEDS: aspirin 81 mg EC Tablet PO (09:03)
[2022-07-20] MEDS: azithromycin 250 mg Tablet 500 MG PO (09:03)
[2022-07-20] MEDS: carvedilol 3.125 mg Tablet PO ×2 (09:03→18:03)
[2022-07-20] MEDS: clopidogrel 75 mg Tablet PO (09:03)
[2022-07-20] MEDS: famotidine 20 mg Tablet PO ×2 (09:04→18:03)
[2022-07-20] MEDS: iohexol 350 mg/mL 500 mL Btl (per mL) IV (09:04)
--- NOTE | 2022-07-20 11:07 | PM.PN ---
Subjective Subjective: Patient is endorsing feeling better currently on 3 L oxygen no signs of DVT, secondary to high D-dimer CT scan was requested Drop in hemoglobin ordered, I requested B12, iron panel and occult blood test Vitals/I&O/Wt Last Vital Signs Temp 97.6 F 07/20/22 08:00 Pulse 73 07/20/22 08:00 Resp 16 07/20/22 08:00 BP 142/54 07/20/22 08:00 Pulse Ox 96 07/20/22 08:00 O2 Del Method 07/20/22 07:51 O2 Flow Rate 2 07/20/22 07:51 07/19/22 07/20/22 07/20/22 22:59 06:59 14:59 Intake Total 410 / 770 Output Total 645 / 645 600 / 1245 Balance -235 / 125 -600 / -475 Weight last 48 hrs Weight 89.358 kg Weight 89.358 kg Physical Exam Narrative: Patient is on 3 L of oxygen Crackles and wheezing positive on lung auscultation Bilateral extremity edema slightly improved Awake and alert Him, asked variable Currently not in any acute distress EOMI, PERRLA Nonfocal neuro exam Data 07/20/22 03:32 07/20/22 03:32 Micro: Microbiology 07/19/22 01:25 Gram Stain - Final Sputum - Expectorated Sputum Sputum Culture - Preliminary 07/18/22 12:20 MRSA Culture - Final Nose 07/18/22 10:47 Blood Culture - Preliminary Blood NEGATIVE TO DATE 07/18/22 10:42 Blood Culture - Preliminary Blood NEGATIVE TO DATE 07/18/22 00:01 Bacterial Antigens - Final Urine,Clean Catch A&P Assessment and plan (1) Influenza: (2) Pneumonia: (3) Hypoxia: (4) CHF exacerbation: (5) Peripheral arterial disease with history of revascularization: (6) Hx of CABG: (7) COPD (chronic obstructive pulmonary disease): Qualifiers: COPD type: unspecified COPD Qualified Code(s): J44.9 - Chronic obstructive pulmonary disease, unspecified (8) Hypoxia: (9) Community acquired pneumonia: Qualifiers: Laterality: right Lung location: lower lobe of lung Qualified Code(s): J18.9 - Pneumonia, unspecified organism Plan Postviral bacterial pneumonia Currently on azithromycin and Levaquin Hypoxia related to COPD exacerbation Secondary to pneumonia and CHF exacerbation Currently on 3 L nasal cannula I will give him Bumex 2 mg IV push He was given Lasix [address] chest showing pleural effusion Acute preserved ejection fraction heart failure exacerbation Start him on Bumex High D-dimer, no sign of DVT or PE CTA chest unremarkable other than pleural effusion and central vascular congestion Plan to discharge him tomorrow if he is clinically stable Full code Cardiac diet. Acute on chronic anemia Normocytic anemia no active signs of GI bleed check iron panel ferritin and B12 level Check FOBT Attestations Medical Necessity Statement*: Discharge tomorrow if stable Time Spent in Patient Care: 35 Coding Level of Care Code Acute Director Of Product Marketing for [facility] Fwd Diagnoses Influenza J11.1 Pneumonia J18.9 Hypoxia R09.02 CHF exacerbation I50.9 Peripheral arterial disease with history of revascularization I73.9; Z98.890 Hx of CABG Z95.1 COPD (chronic obstructive pulmonary disease) J44.9 COPD type: unspecified COPD Hypoxia R09.02 Community acquired pneumonia J18.9 Laterality: right Lung location: lower lobe of lung
[2022-07-20 11:39] LABS: NT Pro B Type Natriuretic Pept 2035 pg/mL (0-450)
[2022-07-20] MEDS: bumetanide 0.25 mg/mL SDV 10 mL 2 MG IVP (11:40)
[2022-07-20] MEDS: heparin 5,000 unit/mL INJ 1 mL 5000 UNIT SUBCUT ×2 (11:40→21:19)
[2022-07-20 11:47] LABS: Ferritin 76 ng/mL (30-400); Iron 15 ug/dL (59-158); Percent Saturation 5.4 % (20-50); Total Iron Binding Capacity 275 mcg/dl; Unsaturated Iron Binding 260 ug/dL (112-347); Vitamin B12 754 pg/mL (232-1245)
[2022-07-20 12:00] LABS: Glucose Point of Care 155 mg/dL (70-110)
[2022-07-20 17:31] LABS: Glucose Point of Care 176 mg/dL (70-110)
--- NOTE | 2022-07-20 18:49 | PC.NURSE ---
Patient refused to take an insulin injection. Patient states, ' The last time I did that I ended up in the ICU so unless you have an ICU bed waiting for me I don't want it. Patient stated that he will just take his Metformin when he gets home.
--- NOTE | 2022-07-20 19:45 | PC.NURSE ---
Report given to Janette ELMORE at this time.
[2022-07-20 21:03] LABS: Glucose Point of Care 170 mg/dL (70-110)
[2022-07-21 03:49] VITALS: BP 127/62; PULSE 78; RESP 16; TEMP 36.4; O2SAT 93
[2022-07-21 04:33] LABS: Basophils % 0.1 %; Hematocrit 27.4 % (42.0-52.0); Hemoglobin 8.2 g/dL (11.7-16.6); Lymphocytes # 1.1 10^3/uL (0.8-4.8); Lymphocytes % 10.6 %; Mean Corpuscular HGB Conc 29.9 g/dL (30.0-36.0); Mean Corpuscular Hemoglobin 23.1 pg (28.0-34.0); Mean Corpuscular Volume 77.2 fl (80-94); Mean Platelet Volume 9.9 fL (7.4-10.4); Monocytes # 0.1 10^3/uL (0.2-0.9); Monocytes % 1.2 %; Neutrophils # 9.12 10^3/uL (1.8-7.7); Neutrophils % 87.5 %; Nucleated Red Blood Cells % 0 %; Platelet Count 300 10^3/cmm (130-400); Red Blood Count 3.55 10^6/uL (4.1-5.3); White Blood Count 10.4 10^3/uL (4.0-10.0)
[2022-07-21 05:00] LABS: Anion Gap 14.1 (5-19); Blood Urea Nitrogen 27 mg/dL (8-23); Calcium 8.3 mg/dL (8.5-10.5); Carbon Dioxide 29 mmol/L (22-29); Chloride 100 mmol/L (98-107); Glucose 138 mg/dL (65-115); Osmolality Calculated 295 mOsm/kg (285-295); Potassium 4.1 mmol/L (3.5-5.1); Sodium 139 mmol/L (136-145)
[2022-07-21] MEDS: levoFLOXacin 750 mg Tablet PO (05:08)
[2022-07-21 06:03] LABS: Slide Review Slide Review Perform
[2022-07-21 06:26] LABS: Glucose Point of Care 157 mg/dL (70-110)
[2022-07-21 07:46] VITALS: PULSE 73; RESP 16; O2SAT 97
[2022-07-21] MEDS: ipratropium-albuterol 3 mL Neb INHALATION ×2 (07:46→11:11)
[2022-07-21 07:53] VITALS: PULSE 72
[2022-07-21 08:00] VITALS: BP 112/57; PULSE 99; RESP 18; TEMP 36.6; O2SAT 94
[2022-07-21] MEDS: aspirin 81 mg EC Tablet PO (08:24)
[2022-07-21] MEDS: famotidine 20 mg Tablet PO (08:24)
[2022-07-21] MEDS: atorvastatin 40 mg Tablet PO (08:24)
[2022-07-21] MEDS: azithromycin 250 mg Tablet 500 MG PO (08:24)
[2022-07-21] MEDS: clopidogrel 75 mg Tablet PO (08:24)
[2022-07-21] MEDS: heparin 5,000 unit/mL INJ 1 mL 5000 UNIT SUBCUT (10:10)
[2022-07-21] MEDS: oseltamivir phosphate 30 mg Capsule PO (10:11)
--- NOTE | 2022-07-21 10:54 | P.DS_ITS ---
Discharge Providers Date of Admission: 07/18/22 09:58 Date of Discharge: July 21, 2022 Attending Provider at Admission: Miya Silverio MD Attending Provider at Discharge: Jose Raul Carrillo MD Primary Care Provider: Hema Hartman MD Diagnoses at Discharge Discharge Diagnosis (1) Influenza: Status: Acute (2) Pneumonia: Status: Acute (3) Hypoxia: Status: Acute (4) CHF exacerbation: Status: Acute (5) Peripheral arterial disease with history of revascularization: Status: Acute (6) Hx of CABG: Status: Acute (7) COPD (chronic obstructive pulmonary disease): Status: Acute Qualifiers: COPD type: unspecified COPD Qualified Code(s): J44.9 - Chronic obstructive pulmonary disease, unspecified (8) Hypoxia: Status: Acute (9) Community acquired pneumonia: Status: Acute Qualifiers: Laterality: right Lung location: lower lobe of lung Qualified Code(s): J18.9 - Pneumonia, unspecified organism Reason for Visit Reason for Visit: SOB Hospital Course Hospital Course 77-year-old male with history of oxygen pendant COPD uses 2 to 3 L of oxygen on as-needed basis at home with his CPAP, presented to the hospital for worsening of shortness of breath, he was diagnosed with influenza A there was concern for postviral bacterial pneumonia due to high procalcitonin, he remained afebrile, mild leukocytosis, he was diagnosed with CHF exacerbation. His symptoms improved with use of diuretics. He is doing fine on 2 L of oxygen at the time of discharge. Cultures remain negative he will finish Levaquin antibiotic course. His hemoglobin has remained stable around 8.2 no active GI bleed noted. High D-dimer however no signs of PE. He has been diagnosed with iron deficiency anemia. No signs of DVT, leg swelling improved with diuresis. Sputum showing yeast species. He may need EGD colonoscopy outpatient. Physical Exam Narrative: Patient is on 2 L of oxygen Crackles and wheezing improved on lung auscultation today Bilateral extremity edema slightly improved Awake and alert Him, asked variable Currently not in any acute distress EOMI, PERRLA Nonfocal neuro exam Discharge Data Studies Completed and Pending Completed Studies During Hospitalization Category Date Time Status CT chest w con* [id number] Stat Cat Scan 07/18/22 09:07 Completed CTA PE [CT angio chest PE protcl [id number]] Stat Cat Scan 07/20/22 08:14 Completed XR chest 1V portable [id number] Stat Exams 07/18/22 06:50 [place] [id number] Routine Ultrasound 07/19/22 12:29 Completed Pending at discharge Category Date Time Status Blood Culture Routine Lab 07/18/22 10:47 Results Occult Blood Stool [Immunochemical Fecal OCB] Routine Lab 07/20/22 11:07 Uncollected Sputum Culture and Gram Stain Stat Lab 07/19/22 01:25 Results Radiology Impressions Chest X-Ray 07/18/22 06:50 IMPRESSION: Increasing consolidation in the left lung base concerning for pneumonia. Chest CT 07/18/22 09:07 IMPRESSION: 1. Mild airspace opacities in the left lung concerning for pneumonia. 2. Trace left-sided pleural fluid. 3. Emphysematous disease. Chest CTA 07/20/22 08:14 IMPRESSION: 1. No evidence of pulmonary embolus. 2. Small LEFT greater than RIGHT pleural effusions with compressive atelectasis in the lung bases. Pleural effusions progressed compared to July 18, 2022 3. Slight patchy infiltrates in the LEFT greater than RIGHT lung base and lingula also slightly progressed. Recommend correlation for pneumonia. 4. Cardiomegaly. Prior CABG. 5. Enlarged anterior mediastinal and subcarinal lymph nodes nonspecific but unchanged since July 18, 2022 6. Small to moderate esophageal hiatal hernia. Laboratory Results WBC 10.4 10^3/uL (4.0-10.0) H 07/21/22 03:43 RBC 3.55 10^6/uL (4.1-5.3) L 07/21/22 03:43 Hgb 8.2 g/dL (11.7-16.6) L 07/21/22 03:43 Hct 27.4 % (42.0-52.0) L 07/21/22 03:43 MCV 77.2 fl (80-94) L 07/21/22 03:43 MCH 23.1 pg (28.0-34.0) L 07/21/22 03:43 MCHC 29.9 g/dL (30.0-36.0) L 07/21/22 03:43 RDW 17.0 % (12.1-15.1) H 07/21/22 03:43 Plt Count 300 10^3/cmm (130-400) 07/21/22 03:43 MPV 9.9 fL (7.4-10.4) 07/21/22 03:43 Neut % (Auto) 87.5 % 07/21/22 03:43 Lymph % (Auto) 10.6 % 07/21/22 03:43 [place] % (Auto) 1.2 % 07/21/22 03:43 Eos % (Auto) 0.0 % 07/21/22 03:43 Baso % (Auto) 0.1 % 07/21/22 03:43 Neut # (Auto) 9.12 10^3/uL (1.8-7.7) H 07/21/22 03:43 Lymph # (Auto) 1.1 10^3/uL (0.8-4.8) 07/21/22 03:43 [place] # (Auto) 0.1 10^3/uL (0.2-0.9) L 07/21/22 03:43 Eos # (Auto) 0.0 10^3/uL (0.0-0.8) 07/21/22 03:43 Baso # (Auto) 0.0 10^3/uL (0.0-0.1) 07/21/22 03:43 Nucleated RBC % (auto) 0 % 07/21/22 03:43 Nucleated RBCs # 0.0 /100WBC 07/21/22 03:43 D-Dimer 2.13 ug/mIFEU (0-0.59) H 07/19/22 14:15 Sodium 139 mmol/L (136-145) 07/21/22 03:43 Potassium 4.1 mmol/L (3.5-5.1) 07/21/22 03:43 Chloride 100 mmol/L (98-107) 07/21/22 03:43 Carbon Dioxide 29 mmol/L (22-29) 07/21/22 03:43 Anion Gap 14.1 (5-19) 07/21/22 03:43 BUN 27 mg/dL (8-23) H 07/21/22 03:43 Creatinine 1.3 mg/dL (0.7-1.2) H 07/21/22 03:43 GFR Calculation Not Reportable 07/21/22 03:43 Glucose 138 mg/dL (65-115) H 07/21/22 03:43 POC Glucose 157 mg/dL (70-110) H 07/21/22 06:11 Calculated Osmolality 295 mOsm/kg (285-295) 07/21/22 03:43 Lactic Acid 1.5 mmol/L (0.5-2.2) 07/19/22 07:18 Lactic Acid (Sepsis) 3.2 mmol/L (0.5-2.2) H 07/18/22 22:05 Calcium 8.3 mg/dL (8.5-10.5) L 07/21/22 03:43 Magnesium 1.9 mg/dL (1.7-2.3) 07/19/22 01:22 Iron 15 ug/dL (59-158) L 07/20/22 03:32 TIBC 275 mcg/dl 07/20/22 03:32 % Saturation 5.4 % (20-50) L 07/20/22 03:32 Unsat Iron Binding 260 ug/dL (112-347) 07/20/22 03:32 Ferritin 76 ng/mL (30-400) 07/20/22 03:32 Total Bilirubin 0.2 mg/dL (0.15-1.2) 07/18/22 07:52 AST 21 U/L (0-40) 07/18/22 07:52 ALT 24 U/L (0-41) 07/18/22 07:52 Alkaline Phosphatase 121 U/L (40-130) 07/18/22 07:52 NT-Pro-B Natriuret Pep 2035 pg/mL (0-450) H 07/20/22 03:32 Total Protein 7.5 g/dL (6.6-8.7) 07/18/22 07:52 Albumin 3.4 g/dL (3.5-5.2) L 07/18/22 07:52 Globulin 4.1 g/dL (1.3-4.6) 07/18/22 07:52 Vitamin B12 754 pg/mL (232-1245) 07/20/22 03:32 Procalcitonin 0.09 ng/mL (0-0.5) 07/18/22 07:52 Nasal Influ A H1 2008 PCR Not detected (NOT DETECT) 07/18/22 15:33 Coronavirus 229E (PCR) Not detected (NOT DETECT) 07/18/22 12:56 Influenza A (H1) PCR Not detected (NOT DETECT) 07/18/22 15:33 Influenza A (H3) PCR Detected (NOT DETECT) A 07/18/22 15:33 Influenza Type A Ag positive (Negative) H 07/18/22 12:56 Influenza Type A (PCR) Detected (NOT DETECT) A 07/18/22 15:33 Influenza Type B Ag negative (Negative) 07/18/22 12:56 Influenza Type B (PCR) Not detected (NOT DETECT) 07/18/22 15:33 SARS-CoV-2 (PCR) Not detected (NOT DETECT) 07/18/22 12:56 Vitals Last Vital Signs Temp 97.9 F 07/21/22 08:00 Pulse 99 07/21/22 08:00 Resp 18 07/21/22 08:00 BP 112/57 07/21/22 08:00 Pulse Ox 94 07/21/22 08:00 O2 Del Method 07/21/22 08:00 O2 Flow Rate 2 07/21/22 08:00 Discharge Plan Discharge Patient Disposition: Home Condition: Stable Prescriptions: New levofloxacin 750 mg tablet 750 mg PO DAILY 5 Days Qty: 5 0RF albuterol sulfate 90 mcg/actuation HFA aerosol inhaler 2 inh inhalation Q8H PRN (Reason: shortness of breath or wheezing) Qty: 8.5 0RF ferrous sulfate [Feosol] 325 mg (65 mg iron) tablet 325 mg PO DAILY Qty: 90 2RF Continued furosemide 20 mg tablet 20 mg PO DAILY finasteride 5 mg tablet 5 mg PO DAILY albuterol sulfate [Ventolin HFA] 90 mcg/actuation HFA aerosol inhaler 2 inh INHALATION Q6H PRN (Reason: Shortness Of Breath) cholecalciferol (vitamin D3) 10 mcg (400 unit) capsule 10 mcg PO DAILY guaifenesin [Mucinex] 600 mg tablet extended release 12hr 600 mg PO DAILY clopidogrel 75 mg tablet 75 mg PO DAILY Qty: 90 3RF aspirin [Adult Aspirin Regimen] 81 mg tablet,delayed release (DR/EC) 81 mg PO DAILY Qty: 90 3RF carvedilol [Coreg] 3.125 mg tablet 3.125 mg PO BID Qty: 180 3RF Rx Instructions: must administer with a meal/food multivitamin [Multiple Vitamins] Tablet 1 tab PO DAILY atorvastatin 40 mg tablet 40 mg PO DAILY garlic 1,000 mg Capsule 1,000 mg PO DAILY montelukast 10 mg tablet 10 mg PO DAILY metformin 500 mg tablet extended release 24 hr 500 mg PO BID omega 9-mfe-gth-fish oil [Fish Oil] 1,000 mg (120 mg-180 mg) Capsule 1 cap PO DAILY fluticasone propionate 50 mcg/actuation spray,suspension 1 spray INTRANASAL DAILY PRN (Reason: Dry Nasal Passages) famotidine 20 mg tablet 20 mg PO BID Trelegy Ellipta 100-62.5-25 mcg Blister With Device 1 inh INHALATION DAILY Discharge Orders: Discharge Order (Routine); Ordered 07/21/22 Ordered By: Jose Raul Carrillo Referrals: Hema Hartman MD [Primary Care Provider] - 07/28/22 8:15 am Discharge Diet: Cardiac Discharge Activity: Increase activity as tolerated Patient Instructions: Albuterol (By breathing), Levofloxacin (By mouth), Influenza (GEN), Pneumonia (GEN), Opioid Safety Discharge Attestations Time Spent in Discharge Care*: less than 30 min Status at Discharge: Cognitive status at discharge: other (sedated) , Quality Metrics Clinical Quality Measures [ No reported AMI, CVA or VTE this stay] Coding Level of Care Code Acute g [facility] note Diagnoses Influenza J11.1 Pneumonia J18.9 Hypoxia R09.02 CHF exacerbation I50.9 Peripheral arterial disease with history of revascularization I73.9; Z98.890 Hx of CABG Z95.1 COPD (chronic obstructive pulmonary disease) J44.9 COPD type: unspecified COPD Hypoxia R09.02 Community acquired pneumonia J18.9 Laterality: right Lung location: lower lobe of lung
[2022-07-21 11:11] VITALS: PULSE 83; RESP 16; O2SAT 94
[2022-07-21 11:14] VITALS: PULSE 83
--- NOTE | 2022-07-21 12:34 | PC.SOCIAL ---
Pg 2 IMM Explained to pt Pg 2 IMM. No questions voiced. Provided pt a copy. Initialed, dated, & timed copy in chart.
== END 2022-07-21 13:33 | disposition home or self-care (01) | DRG 193 ==
LOC: ER 09:59 → MEDSURG 13:56
PROVIDERS: Admitting Provider Internal Medicine; Emergency Provider Emergency Medicine; PCP Family Medicine; Visit Provider Internal Medicine
DX: J10.00 Influenza due to other identified influenza virus with unspecified type of pneumonia (principal); I50.33 Acute on chronic diastolic (congestive) heart failure; I13.0 Hypertensive heart and chronic kidney disease with heart failure and stage 1 through stage 4 chronic kidney disease, or unspecified chronic kidney disease; J44.0 Chronic obstructive pulmonary disease with (acute) lower respiratory infection; B37.0 Candidal stomatitis; N18.31 Chronic kidney disease, stage 3a; E11.22 Type 2 diabetes mellitus with diabetic chronic kidney disease; E11.51 Type 2 diabetes mellitus with diabetic peripheral angiopathy without gangrene; Z95.820 Peripheral vascular angioplasty status with implants and grafts; I25.10 Atherosclerotic heart disease of native coronary artery without angina pectoris; Z95.1 Presence of aortocoronary bypass graft; Z99.81 Dependence on supplemental oxygen; Z99.89 Dependence on other enabling machines and devices; D50.9 Iron deficiency anemia, unspecified; Z79.51 Long term (current) use of inhaled steroids; Z79.82 Long term (current) use of aspirin; Z79.84 Long term (current) use of oral hypoglycemic drugs; D63.1 Anemia in chronic kidney disease; G47.33 Obstructive sleep apnea (adult) (pediatric); E66.9 Obesity, unspecified; Z68.28 Body mass index [BMI] 28.0-28.9, adult; Z87.891 Personal history of nicotine dependence
CPT/HCPCS: 36415; 36416; 71045; 71260; 71275; 80048; 80053; 82607; 82728; 82962; 83540; 83550; 83605; 83735; 83880; 84145; 85025; 85378; 86403; 87040; 87070; 87106; 87205; 87449; 87631; 87635; 87641; 87804; 93005; 93970; 94640; 94664; 96365; 96367; 96372; 96375; 99285; J0456; J0696; J1644; J1940; J2930; J3490; J7050; Q0144; Q9967

== ENCOUNTER 2022-07-22 17:05 | Emergency (ER) | payer MEDICARE, OTHER, SELFPAY ==
--- NOTE | 2022-07-22 17:29 | XRR_ITS ---
PROCEDURE INFORMATION: Exam: XR Chest Exam date and time: 07/22/2022 5:40 PM Age: 77 years old Clinical indication: Shortness of breath; Additional info: SOB TECHNIQUE: Imaging protocol: Radiologic exam of the chest. Views: 1 view. COMPARISON: CT chest w con* [id number] 07/18/2022 9:19 AM FINDINGS: Tubes, catheters and devices: Pacer device noted in the left chest wall. Lungs: No consolidation. Pleural spaces: No pleural effusion. No pneumothorax. Heart/Mediastinum: Moderate cardiomegaly. Bones/joints: Visualized osseous structures are intact. XR/XR chest 1V portable [id number] IMPRESSION: No acute findings.
--- NOTE | 2022-07-22 17:30 | W.ED.GENADLT ---
HPI - General Adult General: Chief complaint: Shortness of Breath/Dyspnea Stated complaint: SOB Time Seen by Provider: 07/22/22 17:10 History of Present Illness: Patient comes in with shortness of breath. States that it started to get worse yesterday morning and today. Has a history of COPD. Was recently admitted and discharged from the hospital with pneumonia. Associated symptoms: Reports dyspnea; Deny chest pain, headache(s), nausea, rash, palpitations or vomiting Review of Systems Const: Denies: fever(s) or body aches Eyes: Denies: change in vision or blurry vision ENMT: Denies: throat pain or odynophagia Card: Denies: chest pain or palpitations Resp: Reports: dyspnea and non-productive cough; Denies: productive cough GI: Denies: abdominal pain, nausea or vomiting : Denies: flank pain or dysuria Musc: Denies: neck pain or back pain Skin/Breast: Denies: rash or pruritus Neuro: Denies: headache(s) or numbness in extremities Psych: Denies: anxiety or change in appetite Endo: Denies: polyuria or excessive sweating PFSH ED PFSH: Medical History HAZEL (acute kidney injury) -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 Florez -s/p CABG CHF exacerbation Chronic anemia -baseline Hg around 10 Chronic kidney disease CKD (chronic kidney disease) stage 2, GFR 60-89 ml/min -baseline Cr wnl Community acquired pneumonia Congestive heart failure COPD (chronic obstructive pulmonary disease) COPD exacerbation -acute COPD exacerbation; likely triggered by pneumonia -not oxygen dependent at baseline; may need home oxygen evaluation prior to d/c -continue to monitor respiratory status -on steroids (switched to IV), Neb treatments and antibiotics -supplemental oxygen as needed Ex-smoker for more than 1 year Fracture, femoral Hemoptysis -hemoptysis noted with continued drop in Hg (10.9--->8.8) -continue to monitor H/H closely and continue to hold AC; INR-1.04; has been off heparin x > 72 hrs -Consult by Dr. 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 Unable to lay flat for imaging and then decompensated and had to be intubated -pending ALMAS, ANCA, anti-dsDNA, SAUL; ESR-19, CRP-6.0, C3-106, C4-24 HTN (hypertension) Hypoxia Hypoxia Influenza Non-insulin dependent diabetes mellitus -A1c-5.9 -accuchecks, ISS, hypoglycemia precautions -hold metformin -anticipate hyperglycemia with steroid use and acute illness -consistent carb diet as tolerated Obesity -BMI-31 kg/m2 DARIUS (obstructive sleep apnea) -CPAP qhs Peripheral angiopathy due to diabetes mellitus Peripheral arterial disease Peripheral arterial disease with history of revascularization Peripheral neuropathy Pneumonia Pneumonia Pneumonia Smoker within last 12 months Surgical History (Updated 07/22/22 @ 00:00 by SHAINA Loya) Hx of CABG Hx of cholecystectomy Family History Mother CAD (coronary artery disease) Social History Smoking and tobacco status: former smoker Quit status (tobacco): has quit using tobacco Year quit tobacco: 2014 - 1ppd x 60 Second hand smoke exposure: No Smoking risk assessment/counseling performed?: Yes Alcohol intake: never Lives independently: Yes Household members: spouse Marital status: Current occupational status: retired History of recent travel: No Current gender identity: Male Physical Exam Const: COMMON NORMALS: patient oriented x3 and alert HENMT: COMMON NORMALS: normocephalic and atraumatic HEAD & SCALP: normocephalic and atraumatic Eye: COMMON NORMALS: Equal, round and reactive pupils present and EOMs intact bilaterally PUPIL: Yes Equal, round and reactive pupils present Neck/C-Spine: COMMON NORMALS: full ROM and supple Resp: OTHER: Tachypnea with coarse breath sounds in all lung patel Cardio: COMMON NORMALS: regular rate and regular rhythm RATE: regular rate RHYTHM: regular rhythm GI: COMMON NORMALS: Normal to inspection, nondistended, normoactive bowel sounds present, Soft to palpation and non-tender PALPATION: Yes Soft to palpation Back/Pelvis: COMMON NORMALS: thoracic and lumbar spine normal to inspection and no thoracic nor lumbar tenderness Extremity: COMMON NORMALS: normal to inspection and full ROM Neuro: COMMON NORMALS: patient oriented x3 SENSORIUM/ORIENTATION: Yes alert Psych: COMMON NORMALS: mental status grossly normal and cooperative Skin: COMMON NORMALS: no rashes or lesions noted and no wounds GENERAL SKIN EXAM: no rashes or lesions noted Course Vital Signs: Vital signs: Vital Signs Temperature 97.6 F 07/22/22 17:36 Pulse Rate 75 07/22/22 17:42 Respiratory Rate 18 07/22/22 17:40 Blood Pressure 129/73 07/22/22 17:36 Pulse Oximetry 92 07/22/22 17:40 Oxygen Delivery Me thod 07/22/22 17:40 Oxygen Flow Rate 3 07/22/22 17:40 MDM - General Adult Medical Decision Making Patient comes in with shortness of breath. States that it started to get worse yesterday morning and today. Has a history of COPD. Was recently admitted and discharged from the hospital with pneumonia. On physical exam the patient has coarse breath sounds in all lung patel, bilateral lower extremity pitting edema. Will check labs, x-ray, give steroids, DuoNeb, and reassess. On reassessment patient is resting comfortably gurney with no signs of distress. I talked to him about the test results. We will continue steroids for the next 4 days. Will discharge home at this time with precautions to return for worsening or changing symptoms. Lab Data 07/22/22 17:55 07/22/22 17:55 Radiology Impressions Chest X-Ray 07/22/22 17:29 IMPRESSION: No acute findings. Laboratory Results WBC 15.6 10^3/uL (4.0-10.0) H 07/22/22 17:55 RBC 4.01 10^6/uL (4.1-5.3) L 07/22/22 17:55 Hgb 9.3 g/dL (11.7-16.6) L 07/22/22 17:55 Hct 31.0 % (42.0-52.0) L 07/22/22 17:55 MCV 77.3 fl (80-94) L 07/22/22 17:55 MCH 23.2 pg (28.0-34.0) L 07/22/22 17:55 MCHC 30.0 g/dL (30.0-36.0) 07/22/22 17:55 RDW 17.2 % (12.1-15.1) H 07/22/22 17:55 Plt Count 329 10^3/cmm (130-400) 07/22/22 17:55 MPV 9.3 fL (7.4-10.4) 07/22/22 17:55 Neut % (Auto) 79.6 % 07/22/22 17:55 Lymph % (Auto) 14.7 % 07/22/22 17:55 [place] % (Auto) 4.5 % 07/22/22 17:55 Eos % (Auto) 0.3 % 07/22/22 17:55 Baso % (Auto) 0.2 % 07/22/22 17:55 Neut # (Auto) 12.43 10^3/uL (1.8-7.7) H 07/22/22 17:55 Lymph # (Auto) 2.3 10^3/uL (0.8-4.8) 07/22/22 17:55 [place] # (Auto) 0.7 10^3/uL (0.2-0.9) 07/22/22 17:55 Eos # (Auto) 0.1 10^3/uL (0.0-0.8) 07/22/22 17:55 Baso # (Auto) 0.0 10^3/uL (0.0-0.1) 07/22/22 17:55 Nucleated RBC % (auto) 0 % 07/22/22 17:55 Nucleated RBCs # 0.0 /100WBC 07/22/22 17:55 Sodium 140 mmol/L (136-145) 07/22/22 17:55 Potassium 4.2 mmol/L (3.5-5.1) 07/22/22 17:55 Chloride 100 mmol/L (98-107) 07/22/22 17:55 Carbon Dioxide 30 mmol/L (22-29) H 07/22/22 17:55 Anion Gap 14.2 (5-19) 07/22/22 17:55 BUN 33 mg/dL (8-23) H 07/22/22 17:55 Creatinine 1.4 mg/dL (0.7-1.2) H 07/22/22 17:55 GFR Calculation Not Reportable 07/22/22 17:55 Glucose 103 mg/dL (65-115) 07/22/22 17:55 Calculated Osmolality 298 mOsm/kg (285-295) H 07/22/22 17:55 Calcium 9.2 mg/dL (8.5-10.5) 07/22/22 17:55 Total Bilirubin 0.2 mg/dL (0.15-1.2) 07/22/22 17:55 AST 17 U/L (0-40) 07/22/22 17:55 ALT 19 U/L (0-41) 07/22/22 17:55 Alkaline Phosphatase 122 U/L (40-130) 07/22/22 17:55 NT-Pro-B Natriuret Pep 1775 pg/mL (0-450) H 07/22/22 17:55 Total Protein 7.3 g/dL (6.6-8.7) 07/22/22 17:55 Albumin 3.2 g/dL (3.5-5.2) L 07/22/22 17:55 Globulin 4.1 g/dL (1.3-4.6) 07/22/22 17:55 Discharge Plan Discharge Patient Disposition: Home Clinical Impression: COPD exacerbation Condition: Stable Prescriptions: New prednisone 20 mg tablet 60 mg PO DAILY 4 Days Qty: 12 0RF No Action furosemide 20 mg tablet 20 mg PO DAILY finasteride 5 mg tablet 5 mg PO DAILY albuterol sulfate [Ventolin HFA] 90 mcg/actuation HFA aerosol inhaler 2 inh INHALATION Q6H PRN (Reason: Shortness Of Breath) cholecalciferol (vitamin D3) 10 mcg (400 unit) capsule 10 mcg PO DAILY guaifenesin [Mucinex] 600 mg tablet extended release 12hr 600 mg PO DAILY clopidogrel 75 mg tablet 75 mg PO DAILY Qty: 90 3RF aspirin [Adult Aspirin Regimen] 81 mg tablet,delayed release (DR/EC) 81 mg PO DAILY Qty: 90 3RF carvedilol [Coreg] 3.125 mg tablet 3.125 mg PO BID Qty: 180 3RF Rx Instructions: must administer with a meal/food multivitamin [Multiple Vitamins] Tablet 1 tab PO DAILY atorvastatin 40 mg tablet 40 mg PO DAILY garlic 1,000 mg Capsule 1,000 mg PO DAILY montelukast 10 mg tablet 10 mg PO DAILY metformin 500 mg tablet extended release 24 hr 500 mg PO BID omega 9-ziq-ial-fish oil [Fish Oil] 1,000 mg (120 mg-180 mg) Capsule 1 cap PO DAILY fluticasone propionate 50 mcg/actuation spray,suspension 1 spray INTRANASAL DAILY PRN (Reason: Dry Nasal Passages) famotidine 20 mg tablet 20 mg PO BID Trelegy Ellipta 100-62.5-25 mcg Blister With Device 1 inh INHALATION DAILY levofloxacin 750 mg tablet 750 mg PO DAILY 5 Days Qty: 5 0RF albuterol sulfate 90 mcg/actuation HFA aerosol inhaler 2 inh inhalation Q8H PRN (Reason: shortness of breath or wheezing) Qty: 8.5 0RF Feosol 325 mg (65 mg iron) tablet 325 mg PO DAILY Qty: 90 2RF Discharge Orders: Discharge ED (Routine); Ordered 07/22/22 Ordered By: Virgilio Duncan Referrals: Hema Hartman MD [Primary Care Provider] - Patient Instructions: COPD Coding Level of Care Code ED Human Relations Professor for Chg Fwd Exam Comprehensive
[2022-07-22 17:36] VITALS: BP 129/73; PULSE 76; RESP 20; TEMP 36.4; O2SAT 91; BMI 27.8
[2022-07-22 17:40] VITALS: PULSE 74; RESP 18; O2SAT 92
[2022-07-22] MEDS: ipratropium-albuterol 3 mL Neb INHALATION (17:41)
[2022-07-22 17:42] VITALS: PULSE 75
[2022-07-22 18:04] LABS: Basophils % 0.2 %; Eosinophils # 0.1 10^3/uL (0.0-0.8); Eosinophils % 0.3 %; Hemoglobin 9.3 g/dL (11.7-16.6); Lymphocytes # 2.3 10^3/uL (0.8-4.8); Lymphocytes % 14.7 %; Mean Corpuscular Hemoglobin 23.2 pg (28.0-34.0); Mean Corpuscular Volume 77.3 fl (80-94); Mean Platelet Volume 9.3 fL (7.4-10.4); Monocytes # 0.7 10^3/uL (0.2-0.9); Monocytes % 4.5 %; Neutrophils # 12.43 10^3/uL (1.8-7.7); Neutrophils % 79.6 %; Nucleated Red Blood Cells % 0 %; Platelet Count 329 10^3/cmm (130-400); Red Blood Count 4.01 10^6/uL (4.1-5.3); Red Cell Distribution Width 17.2 % (12.1-15.1); White Blood Count 15.6 10^3/uL (4.0-10.0)
[2022-07-22 18:34] LABS: Alanine Aminotransferase 19 U/L (0-41); Albumin Level 3.2 g/dL (3.5-5.2); Alkaline Phosphatase 122 U/L (40-130); Anion Gap 14.2 (5-19); Aspartate Amino Transferase 17 U/L (0-40); Blood Urea Nitrogen 33 mg/dL (8-23); Calcium 9.2 mg/dL (8.5-10.5); Carbon Dioxide 30 mmol/L (22-29); Chloride 100 mmol/L (98-107); Globulin 4.1 g/dL (1.3-4.6); Glucose 103 mg/dL (65-115); NT Pro B Type Natriuretic Pept 1775 pg/mL (0-450); Osmolality Calculated 298 mOsm/kg (285-295); Potassium 4.2 mmol/L (3.5-5.1); Sodium 140 mmol/L (136-145); Total Bilirubin 0.2 mg/dL (0.15-1.2); Total Protein 7.3 g/dL (6.6-8.7)
[2022-07-22 20:29] VITALS: BP 131/57; PULSE 87; RESP 22; O2SAT 92
== END 2022-07-22 20:30 | disposition home or self-care (01) ==
PROVIDERS: Emergency Provider Emergency Medicine; PCP Family Medicine
DX: J44.1 Chronic obstructive pulmonary disease with (acute) exacerbation (principal); Z79.84 Long term (current) use of oral hypoglycemic drugs; Z79.02 Long term (current) use of antithrombotics/antiplatelets; Z79.82 Long term (current) use of aspirin; Z87.891 Personal history of nicotine dependence; Z95.1 Presence of aortocoronary bypass graft; E11.22 Type 2 diabetes mellitus with diabetic chronic kidney disease; I13.0 Hypertensive heart and chronic kidney disease with heart failure and stage 1 through stage 4 chronic kidney disease, or unspecified chronic kidney disease; N18.2 Chronic kidney disease, stage 2 (mild); I50.9 Heart failure, unspecified; I25.10 Atherosclerotic heart disease of native coronary artery without angina pectoris
CPT/HCPCS: 36415; 71045; 80053; 83880; 85025; 94640; 96374; 99284; J2930

== ENCOUNTER → 2022-08-06 11:36 | Day surgery (SDC) | payer MEDICARE, OTHER, SELFPAY ==
[2022-08-06 12:12] VITALS: BP 102/52; PULSE 74; RESP 18; TEMP 36.4; O2SAT 95
[2022-08-06] MEDS: ferric carboxy (IVPB) 750 MG in sodium chloride 0.9% (100 ml) 100 ML 300 MG IV (12:32)
== END ==
PROVIDERS: PCP Family Medicine; Visit Provider Family Medicine
DX: D50.9 Iron deficiency anemia, unspecified (principal); R06.00 Dyspnea, unspecified
CPT/HCPCS: 96365; J1439

== ENCOUNTER → 2022-08-13 11:43 | Day surgery (SDC) | payer MEDICARE, OTHER, SELFPAY ==
[2022-08-13] MEDS: ferric carboxy (IVPB) 750 MG in sodium chloride 0.9% (100 ml) 100 ML 345 MG IV (12:32)
[2022-08-13 12:38] VITALS: BP 115/50; PULSE 81; RESP 18; TEMP 36.2; O2SAT 90
== END ==
PROVIDERS: PCP Family Medicine; Visit Provider Family Medicine
DX: D50.9 Iron deficiency anemia, unspecified (principal); R06.00 Dyspnea, unspecified
CPT/HCPCS: 96365; J1439

== ENCOUNTER → 2022-09-01 08:30 | Outpatient (BNVA) | payer MEDICARE, OTHER, SELFPAY | PROVIDERS: PCP Family Medicine; Visit Provider Internal Medicine Pulmonary Disease | DX: R06.02 Shortness of breath (principal); L97.516 Non-pressure chronic ulcer of other part of right foot with bone involvement without evidence of necrosis; J44.9 Chronic obstructive pulmonary disease, unspecified; Z87.891 Personal history of nicotine dependence; Z95.1 Presence of aortocoronary bypass graft; K44.9 Diaphragmatic hernia without obstruction or gangrene | CPT/HCPCS: 99214 ==

== ENCOUNTER → 2022-09-07 12:51 | Outpatient (BNVA) | payer MEDICARE, OTHER, SELFPAY | PROVIDERS: PCP Family Medicine; Visit Provider Nurse Practitioner Family | DX: I25.10 Atherosclerotic heart disease of native coronary artery without angina pectoris (principal); Z95.0 Presence of cardiac pacemaker; Z87.891 Personal history of nicotine dependence; Z95.1 Presence of aortocoronary bypass graft; I13.0 Hypertensive heart and chronic kidney disease with heart failure and stage 1 through stage 4 chronic kidney disease, or unspecified chronic kidney disease; N18.2 Chronic kidney disease, stage 2 (mild); I50.32 Chronic diastolic (congestive) heart failure | CPT/HCPCS: 11055; 11721; 99214 ==

== ENCOUNTER 2022-09-08 10:03 | Outpatient (CLI) | payer MEDICARE, OTHER, SELFPAY ==
--- NOTE | 2022-09-08 10:30 | CT_ITS ---
WS: [id number] CT CHEST WITHOUT INTRAVENOUS CONTRAST HISTORY: pneumonia TECHNIQUE: Contiguous 5 mm axial imaging performed on the thorax. Coronal and sagittal reformats are submitted. All CT scans at [facility] use at least one of these dose optimization techniques: automated exposure control; mA and/or kV adjustment per patient size (includes targeted exams where dose is matched to clinical indication); or iterative reconstruction. CONTRAST: None DLP: 432.21 mGy.cm COMPARISON: 02/26/2020, 07/20/2022 Lungs and central airway: Marked pulmonary hyperexpansion with increased AP diameter of the chest. Ce ntrilobular emphysema. Long-term stability 4 mm noncalcified nodule RIGHT upper lobe. Moderate improv ement in the reticular thickening towards the lingula and in the periphery of the LEFT lower lobe. Pleura: Small LEFT pleural effusion has decreased since 07/20/2022. No residual RIGHT pleural effusio n. Heart and pericardium: Prior CABG. Heart appears normal size. Extensive nikolski coronary artery calcif ications. Dual lead defibrillator. Mediastinum and abdias: Small subcarinal lymph nodes measuring up to 10 mm. Slightly decreased in size since the most recent exam. Vessels: Mild atherosclerosis aorta. No aneurysm. Calcification continues into the proximal great ves sels. Normal size pulmonary artery. Chest wall and lower neck: Cardiac pacer/defibrillator LEFT chest wall. Upper abdomen: Small hiatal hernia. No adrenal mass. Osseous structures: Osteopenia. Mild anterior wedging of thoracic 0vertebral bodies including T7 and T11. CT/CT chest wo con [id number] IMPRESSION: 1. Moderate improvement in the interstitial and reticular thickening involving the lingula and LEFT lower lobe since 07/20/2022. The remaining interstitial t hickening may be chronic fibrotic change. 2. Very small but decreased LEFT pleural effusion. Resolved RIGHT pleural effu ebenezer. 3. Chronic emphysema. 4. Slight decrease in size of the subcarinal lymph nodes which were probably r eactive. 5. Prior CABG.
== END 2022-09-08 10:04 | disposition home or self-care (01) ==
LOC: RAD 10:08
PROVIDERS: PCP Family Medicine; Visit Provider Internal Medicine Pulmonary Disease
DX: J18.9 Pneumonia, unspecified organism (principal)
CPT/HCPCS: 71250

== ENCOUNTER → 2022-10-08 12:05 | Outpatient (BNVA) | payer MEDICARE, OTHER, SELFPAY | PROVIDERS: PCP Family Medicine; Visit Provider Podiatrist Foot & Ankle Surgery | DX: I73.9 Peripheral vascular disease, unspecified (principal); E11.621 Type 2 diabetes mellitus with foot ulcer; E11.22 Type 2 diabetes mellitus with diabetic chronic kidney disease; E11.42 Type 2 diabetes mellitus with diabetic polyneuropathy; Z79.84 Long term (current) use of oral hypoglycemic drugs; E11.8 Type 2 diabetes mellitus with unspecified complications; N18.31 Chronic kidney disease, stage 3a; G62.9 Polyneuropathy, unspecified; Z98.890 Other specified postprocedural states; L60.3 Nail dystrophy; L84 Corns and callosities; L97.512 Non-pressure chronic ulcer of other part of right foot with fat layer exposed | CPT/HCPCS: 11042; 11055 ==

== ENCOUNTER → 2022-11-02 08:15 | Outpatient (BNVA) | payer MEDICARE, OTHER, SELFPAY | PROVIDERS: PCP Family Medicine; Visit Provider Internal Medicine | DX: Z45.010 Encounter for checking and testing of cardiac pacemaker pulse generator [battery] (principal) | CPT/HCPCS: 93296 ==

== ENCOUNTER → 2022-11-19 12:20 | Outpatient (BNVA) | payer MEDICARE, OTHER, SELFPAY | PROVIDERS: PCP Family Medicine; Visit Provider Podiatrist Foot & Ankle Surgery | DX: I73.9 Peripheral vascular disease, unspecified (principal); L84 Corns and callosities; L60.3 Nail dystrophy; G62.9 Polyneuropathy, unspecified; N18.31 Chronic kidney disease, stage 3a; Z98.890 Other specified postprocedural states; Z79.84 Long term (current) use of oral hypoglycemic drugs | CPT/HCPCS: 11055; 11721 ==

== ENCOUNTER → 2023-01-11 14:35 | Outpatient (BNVA) | payer MEDICARE, OTHER, SELFPAY | PROVIDERS: PCP Family Medicine; Visit Provider Podiatrist Foot & Ankle Surgery | DX: I73.9 Peripheral vascular disease, unspecified (principal); L84 Corns and callosities; L60.3 Nail dystrophy; N18.31 Chronic kidney disease, stage 3a; G62.9 Polyneuropathy, unspecified; Z98.890 Other specified postprocedural states | CPT/HCPCS: 11055; 11721 ==

== ENCOUNTER → 2023-03-02 10:18 | Outpatient (BNVA) | payer MEDICARE, OTHER, SELFPAY | PROVIDERS: PCP Family Medicine; Visit Provider Internal Medicine Pulmonary Disease | DX: J44.9 Chronic obstructive pulmonary disease, unspecified (principal); L97.516 Non-pressure chronic ulcer of other part of right foot with bone involvement without evidence of necrosis; Z87.891 Personal history of nicotine dependence; Z95.1 Presence of aortocoronary bypass graft | CPT/HCPCS: 99214 ==

== ENCOUNTER → 2023-03-08 11:12 | Outpatient (BNVA) | payer MEDICARE, OTHER, SELFPAY | PROVIDERS: PCP Family Medicine; Visit Provider Internal Medicine Cardiovascular Disease | DX: J44.9 Chronic obstructive pulmonary disease, unspecified (principal); I13.0 Hypertensive heart and chronic kidney disease with heart failure and stage 1 through stage 4 chronic kidney disease, or unspecified chronic kidney disease; N18.31 Chronic kidney disease, stage 3a; I50.32 Chronic diastolic (congestive) heart failure; N17.9 Acute kidney failure, unspecified; I25.10 Atherosclerotic heart disease of native coronary artery without angina pectoris; Z95.0 Presence of cardiac pacemaker; I44.30 Unspecified atrioventricular block; G47.33 Obstructive sleep apnea (adult) (pediatric); E11.22 Type 2 diabetes mellitus with diabetic chronic kidney disease; Z79.84 Long term (current) use of oral hypoglycemic drugs; Z87.891 Personal history of nicotine dependence | CPT/HCPCS: 99214 ==

== ENCOUNTER → 2023-03-22 13:32 | Outpatient (BNVA) | payer MEDICARE, OTHER, SELFPAY | PROVIDERS: PCP Family Medicine; Visit Provider Podiatrist Foot & Ankle Surgery | DX: E11.8 Type 2 diabetes mellitus with unspecified complications (principal); L84 Corns and callosities; I73.9 Peripheral vascular disease, unspecified; N18.31 Chronic kidney disease, stage 3a; G62.9 Polyneuropathy, unspecified; Z98.890 Other specified postprocedural states; L60.3 Nail dystrophy; Z79.84 Long term (current) use of oral hypoglycemic drugs | CPT/HCPCS: 11055; 11721 ==

== ENCOUNTER 2023-04-17 12:01 | Emergency (ER) | payer MEDICARE, OTHER, SELFPAY ==
[2023-04-17 12:09] VITALS: BP 152/73; PULSE 78; RESP 18; TEMP 36.3; O2SAT 92; BMI 28.7
--- NOTE | 2023-04-17 12:56 | ED_ITS ---
HPI - General Adult General: Chief complaint: General Medical Stated complaint: all he would say is hes tired and dont feel good Time Seen by Provider: 04/17/23 12:43 Source: patient Mode of arrival: ambulatory History of Present Illness: 78-year-old male comes in complaining just feeling weak and not feeling well nothing specific. He has a history of COPD was seen last week given doxycycline and states he is still not feeling better denies chest pain abdominal pain no fever sweats chills states no difficulty breathing no cough or shortness of breath no dysuria urgency or frequency nausea vomiting or diarrhea. Onset (ago): day(s) Associated symptoms: Deny chest pain, confusion, cough, diaphoresis, decreased appetite, dyspnea, fevers/chills, headache(s), malaise, nausea, rash, palpitations, seizures, short of breath, syncope, vomiting or weakness Review of Systems Const: Denies: fever(s), chills, malaise or diaphoresis ENMT: Denies: throat pain, ear or mastoid pain, nasal discharge or nasal congestion Card: Denies: chest pain, palpitations or syncope Resp: Denies: dyspnea GI: Denies: abdominal pain, nausea or vomiting : Denies: flank pain, dysuria, urinary frequency or urinary urgency Musc: Denies: neck pain or back pain Skin/Breast: Denies: rash Neuro: Denies: headache(s) or confusion PFSH ED PFSH: Medical History HAZEL (acute kidney injury) -HAZEL on CKD stage 2 -baseline Cr wnl -slight worsening in renal function likely due to diuresis, continue to monitor -avoid nephrotoxins, renally dose meds Amputation of one or more toes AV heart block CAD (coronary artery disease) -follows up with Dr. Garcia -s/p CABG CHF exacerbation Chronic anemia -baseline Hg around 10 Chronic kidney disease CKD (chronic kidney disease) stage 2, GFR 60-89 ml/min -baseline Cr wnl Community acquired pneumonia Congestive heart failure COPD (chronic obstructive pulmonary disease) COPD exacerbation -acute COPD exacerbation; likely triggered by pneumonia -not oxygen dependent at baseline; may need home oxygen evaluation prior to d/c -continue to monitor respiratory status -on steroids (switched to IV), Neb treatments and antibiotics -supplemental oxygen as needed Ex-smoker for more than 1 year Fracture, femoral Hemoptysis -hemoptysis noted with continued drop in Hg (10.9--->8.8) -continue to monitor H/H closely and continue to hold AC; INR-1.04; has been off heparin x > 72 hrs -Consult by Dr. 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 Unable to lay flat for imaging and then decompensated and had to be intubated -pending ALMAS, ANCA, anti-dsDNA, SAUL; ESR-19, CRP-6.0, C3-106, C4-24 HTN (hypertension) Hypoxia Hypoxia Influenza Non-insulin dependent diabetes mellitus -A1c-5.9 -accuchecks, ISS, hypoglycemia precautions -hold metformin -anticipate hyperglycemia with steroid use and acute illness -consistent carb diet as tolerated Obesity -BMI-31 kg/m2 DARIUS (obstructive sleep apnea) -CPAP qhs Pacemaker Peripheral angiopathy due to diabetes mellitus Peripheral arterial disease with history of revascularization Peripheral neuropathy Pneumonia Smoker within last 12 months Surgical History Hx of CABG Hx of cholecystectomy Family History Mother CAD (coronary artery disease) Social History Smoking and tobacco status: former smoker Quit status (tobacco): has quit using tobacco Year quit tobacco: 2014 - 1ppd x 60 Second hand smoke exposure: No Smoking risk assessment/counseling performed?: Yes Alcohol intake: never Substance/Drug Use: never Lives independently: Yes Household members: spouse Marital status: Current occupational status: retired Do you think of yourself as: Straight/Heterosexual Current gender identity: Male Physical Exam Const: COMMON NORMALS: no acute distress GENERAL APPEARANCE: cooperative and comfortable ORIENTATION/CONSCIOUSNESS: Yes awake, Yes oriented to person, Yes oriented to place and Yes oriented to time HENMT: COMMON NORMALS: normocephalic, atraumatic and hearing grossly normal bilaterally HEAD & SCALP: normocephalic and atraumatic Resp: COMMON NORMALS: normal respiratory effort, No retractions, No use of accessory muscles and clear to auscultation bilaterally AUSCULTATION: clear to auscultation bilaterally Cardio: COMMON NORMALS: regular rate, regular rhythm and No murmurs present (Cardio) RATE: regular rate RHYTHM: regular rhythm GI: COMMON NORMALS: Soft to palpation and No hepatosplenomegaly present AUSCULTATION: Yes normoactive bowel sounds PALPATION: Yes Soft to palpation, No Tenderness to palpation present (GI), No Guarding due to palpation present (GI) and Yes No hepatosplenomegaly present Extremity: COMMON NORMALS: normal to inspection, capillary refill normal, no clubbing, cyanosis or edema, no calf tenderness and no pedal edema Neuro: SENSORIUM/ORIENTATION: Yes oriented to person, Yes oriented to place and Yes oriented to time Skin: COMMON NORMALS: no rashes or lesions noted GENERAL SKIN EXAM: no rashes or lesions noted Course Vital Signs: Vital signs: Vital Signs Temperature 97.3 F L 04/17/23 12:09 Pulse Rate 78 04/17/23 12:09 Respiratory Rate 18 04/17/23 12:09 Blood Pressure 152/73 04/17/23 12:09 Pulse Oximetry 92 04/17/23 12:09 Oxygen Delivery Me thod Room Air 04/17/23 12:09 [facility] - General Adult Medical Decision Making Labs and imaging reviewed. We wanted to get a urine with the patient urinated without collecting a sample patient refuses catheterization. No significant findings up to this point is to recommend that he continue medications as previously Cyndi follow-up with primary care doctor has any worsening or change symptoms significant change symptoms were return to the emergency room. Did not repeat COVID testing as he was tested yesterday and has no fever at this time. Medical Records I reviewed the patient's medical records. Lab Data I reviewed the patient's lab results. 04/17/23 13:04 04/17/23 13:04 Radiology Impressions Chest X-Ray 04/17/23 13:07 IMPRESSION: No acute abnormality. Laboratory Results WBC 9.38 10^3/uL (3.29-11.43) 04/17/23 13:04 RBC 4.52 10^6/uL (3.85-5.65) 04/17/23 13:04 Hgb 13.60 g/dL (11.27-16.99) 04/17/23 13:04 Hct 42.0 % (37-53) 04/17/23 13:04 MCV 92.9 fl (82-101) 04/17/23 13:04 MCH 30.1 pg (27-33) 04/17/23 13:04 MCHC 32.4 g/dL (30-55) 04/17/23 13:04 RDW 14.9 % (12.1-15.1) 04/17/23 13:04 Plt Count 239 10^3/cmm (157-399) 04/17/23 13:04 MPV 9.9 fL (7.4-10.4) 04/17/23 13:04 Neut % (Auto) 72.3 % 04/17/23 13:04 Lymph % (Auto) 18.1 % 04/17/23 13:04 [place] % (Auto) 6.5 % 04/17/23 13:04 Eos % (Auto) 2.0 % 04/17/23 13:04 Baso % (Auto) 0.6 % 04/17/23 13:04 Neut # (Auto) 6.77 10^3/uL (1.8-7.7) 04/17/23 13:04 Lymph # (Auto) 1.7 10^3/uL (0.8-4.8) 04/17/23 13:04 [place] # (Auto) 0.6 10^3/uL (0.2-0.9) 04/17/23 13:04 Eos # (Auto) 0.2 10^3/uL (0.0-0.8) 04/17/23 13:04 Baso # (Auto) 0.1 10^3/uL (0.0-0.1) 04/17/23 13:04 Nucleated RBC % (auto) 0 % 04/17/23 13:04 Nucleated RBCs # 0.0 /100WBC 04/17/23 13:04 Sodium 141 mmol/L (136-145) 04/17/23 13:04 Potassium 4.6 mmol/L (3.5-5.1) 04/17/23 13:04 Chloride 104 mmol/L (98-107) 04/17/23 13:04 Carbon Dioxide 28 mmol/L (22-29) 04/17/23 13:04 Anion Gap 13.6 (5-19) 04/17/23 13:04 BUN 36 mg/dL (8-23) H 04/17/23 13:04 Creatinine 1.3 mg/dL (0.7-1.2) H 04/17/23 13:04 GFR Calculation Not Reportable 04/17/23 13:04 Glucose 105 mg/dL (65-115) 04/17/23 13:04 Calculated Osmolality 301 mOsm/kg (285-295) H 04/17/23 13:04 Calcium 9.3 mg/dL (8.5-10.5) 04/17/23 13:04 Total Bilirubin 0.3 mg/dL (0.15-1.2) 04/17/23 13:04 AST 16 U/L (0-40) 04/17/23 13:04 ALT 13 U/L (0-41) 04/17/23 13:04 Alkaline Phosphatase 130 U/L (40-130) 04/17/23 13:04 Total Protein 7.6 g/dL (6.6-8.7) 04/17/23 13:04 Albumin 3.8 g/dL (3.5-5.2) 04/17/23 13:04 Globulin 3.8 g/dL (1.3-4.6) 04/17/23 13:04 All radiology interpretation(s) finalized by discharge Discharge Plan Discharge Patient Disposition: Home Clinical Impression: Weakness, COPD (chronic obstructive pulmonary disease) Condition: Stable Prescriptions: No Action furosemide 20 mg tablet 20 mg PO DAILY finasteride 5 mg tablet 5 mg PO DAILY cholecalciferol (vitamin D3) 10 mcg (400 unit) capsule 10 mcg PO DAILY guaifenesin [Mucinex] 600 mg tablet extended release 12hr 600 mg PO DAILY clopidogrel 75 mg tablet 75 mg PO DAILY Qty: 90 3RF aspirin [Adult Aspirin Regimen] 81 mg tablet,delayed release (DR/EC) 81 mg PO DAILY Qty: 90 3RF carvedilol [Coreg] 3.125 mg tablet 3.125 mg PO BID Qty: 180 3RF Rx Instructions: must administer with a meal/food multivitamin [Multiple Vitamins] Tablet 1 tab PO DAILY atorvastatin 40 mg tablet 40 mg PO QPM garlic 1,000 mg Capsule 1,000 mg PO DAILY montelukast 10 mg tablet 10 mg PO DAILY metformin 500 mg tablet extended release 24 hr 500 mg PO BID omega [id number]-[id number]-fish oil [Fish Oil] 1,000 mg (120 mg-180 mg) Capsule 1 cap PO DAILY fluticasone propionate 50 mcg/actuation spray,suspension 1 spray INTRANASAL DAILY PRN (Reason: Dry Nasal Passages) famotidine 20 mg tablet 20 mg PO BID PRN (Reason: Acid Reflux) Trelegy Ellipta 100-62.5-25 mcg Blister With Device 1 inh INHALATION DAILY Neuropaway 2 caplet PO BID doxycycline hyclate 100 mg capsule 100 mg PO BID albuterol sulfate 90 mcg/actuation HFA aerosol inhaler 2 inh inhalation Q8H PRN (Reason: shortness of breath or wheezing) Qty: 8.5 0RF Discharge Orders: Discharge ED (Routine); Ordered 04/17/23 Ordered By: Jacinto Hope Referrals: Hema Hartman MD [Primary Care Provider] - Discharge Diet: Usual diet Discharge Activity: Increase activity as tolerated Patient Instructions: Opioid Safety, Pain Management Activity Restrictions/Additional Instructions: Complete previously prescribed antibiotics. If your symptoms do not improve follow-up with your primary care doctor Coding Level of Care Code ED Dance Hall Host/Hostess for Angelika Mckenzie
--- NOTE | 2023-04-17 13:07 | XRR_ITS ---
PROCEDURE INFORMATION: Exam: XR Chest Exam date and time: 04/17/2023 1:10 PM Age: 78 years old Clinical indication: Cough and dyspnea; Prior surgery; Surgery date: 6+ months; Surgery type: Open heart pacer; Additional info: Dyspnea/cough TECHNIQUE: Imaging protocol: Radiologic exam of the chest. Views: 1 view. COMPARISON: CR XR chest 2V* [id number] 09/28/2022 11:03 AM FINDINGS: Tubes, catheters and devices: A permanent sequential pacemaker is intact. Lungs: Unremarkable. No consolidation. Pleural spaces: Unremarkable. No pleural effusion. No pneumothorax. Heart/Mediastinum: Unremarkable. No cardiomegaly. Bones/joints: Median sternotomy. No acute bony abnormality. XR/XR chest 1V portable [id number] IMPRESSION: No acute abnormality.
[2023-04-17 13:31] LABS: Basophils # 0.1 10^3/uL (0.0-0.1); Basophils % 0.6 %; Eosinophils # 0.2 10^3/uL (0.0-0.8); Lymphocytes # 1.7 10^3/uL (0.8-4.8); Lymphocytes % 18.1 %; Mean Corpuscular HGB Conc 32.4 g/dL (30-55); Mean Corpuscular Hemoglobin 30.1 pg (27-33); Mean Corpuscular Volume 92.9 fl (82-101); Mean Platelet Volume 9.9 fL (7.4-10.4); Monocytes # 0.6 10^3/uL (0.2-0.9); Monocytes % 6.5 %; Neutrophils # 6.77 10^3/uL (1.8-7.7); Neutrophils % 72.3 %; Nucleated Red Blood Cells % 0 %; Platelet Count 239 10^3/cmm (157-399); Red Blood Count 4.52 10^6/uL (3.85-5.65); Red Cell Distribution Width 14.9 % (12.1-15.1); White Blood Count 9.38 10^3/uL (3.29-11.43)
[2023-04-17 14:04] LABS: Alanine Aminotransferase 13 U/L (0-41); Albumin Level 3.8 g/dL (3.5-5.2); Alkaline Phosphatase 130 U/L (40-130); Aspartate Amino Transferase 16 U/L (0-40); Blood Urea Nitrogen 36 mg/dL (8-23); Calcium 9.3 mg/dL (8.5-10.5); Carbon Dioxide 28 mmol/L (22-29); Chloride 104 mmol/L (98-107); Globulin 3.8 g/dL (1.3-4.6); Glucose 105 mg/dL (65-115); Osmolality Calculated 301 mOsm/kg (285-295); Sodium 141 mmol/L (136-145); Total Bilirubin 0.3 mg/dL (0.15-1.2); Total Protein 7.6 g/dL (6.6-8.7)
[2023-04-17 14:06] LABS: Creatinine Clr Calc Pharmacy 52.1936
[2023-04-17 14:09] LABS: Anion Gap 13.6 (5-19); Potassium 4.6 mmol/L (3.5-5.1)
== END 2023-04-17 14:17 | disposition home or self-care (01) ==
PROVIDERS: Emergency Provider Family Medicine; PCP Family Medicine
DX: R53.1 Weakness (principal); J44.9 Chronic obstructive pulmonary disease, unspecified; Z79.82 Long term (current) use of aspirin; Z79.02 Long term (current) use of antithrombotics/antiplatelets; Z87.891 Personal history of nicotine dependence; Z95.1 Presence of aortocoronary bypass graft; I25.10 Atherosclerotic heart disease of native coronary artery without angina pectoris; E11.22 Type 2 diabetes mellitus with diabetic chronic kidney disease; I13.0 Hypertensive heart and chronic kidney disease with heart failure and stage 1 through stage 4 chronic kidney disease, or unspecified chronic kidney disease; N18.2 Chronic kidney disease, stage 2 (mild); I50.9 Heart failure, unspecified; Z95.0 Presence of cardiac pacemaker
CPT/HCPCS: 71045; 80053; 85025; 99284

== ENCOUNTER → 2023-04-19 13:07 | Outpatient (BNVA) | payer MEDICARE, OTHER, SELFPAY | PROVIDERS: PCP Family Medicine; Visit Provider Podiatrist Foot & Ankle Surgery | DX: L84 Corns and callosities (principal); I73.9 Peripheral vascular disease, unspecified; N18.31 Chronic kidney disease, stage 3a; G62.9 Polyneuropathy, unspecified; Z98.890 Other specified postprocedural states; L60.3 Nail dystrophy | CPT/HCPCS: 11055; 11721 ==

== ENCOUNTER → 2023-05-18 06:50 | Outpatient (BNVA) | payer MEDICARE, OTHER, SELFPAY | PROVIDERS: PCP Family Medicine; Visit Provider Podiatrist Foot & Ankle Surgery | DX: M21.752 Unequal limb length (acquired), left femur (principal); M21.41 Flat foot [pes planus] (acquired), right foot; M21.42 Flat foot [pes planus] (acquired), left foot; M20.41 Other hammer toe(s) (acquired), right foot; E11.42 Type 2 diabetes mellitus with diabetic polyneuropathy; I73.9 Peripheral vascular disease, unspecified; N18.31 Chronic kidney disease, stage 3a; Z98.890 Other specified postprocedural states | CPT/HCPCS: 99214 ==

== ENCOUNTER → 2023-07-06 07:59 | Outpatient (BNVA) | payer MEDICARE, OTHER, SELFPAY | PROVIDERS: PCP Family Medicine; Visit Provider Podiatrist Foot & Ankle Surgery | DX: N18.31 Chronic kidney disease, stage 3a (principal); I73.9 Peripheral vascular disease, unspecified; M21.70 Unequal limb length (acquired), unspecified site; M21.41 Flat foot [pes planus] (acquired), right foot; M21.42 Flat foot [pes planus] (acquired), left foot; M20.41 Other hammer toe(s) (acquired), right foot; E11.42 Type 2 diabetes mellitus with diabetic polyneuropathy; Z79.84 Long term (current) use of oral hypoglycemic drugs | CPT/HCPCS: 99213 ==

== ENCOUNTER → 2023-07-20 08:08 | Outpatient (BNVA) | payer MEDICARE, OTHER, SELFPAY | PROVIDERS: PCP Family Medicine; Visit Provider Podiatrist Foot & Ankle Surgery | DX: E11.621 Type 2 diabetes mellitus with foot ulcer; L97.522 Non-pressure chronic ulcer of other part of left foot with fat layer exposed; N18.31 Chronic kidney disease, stage 3a; I73.9 Peripheral vascular disease, unspecified; Z98.890 Other specified postprocedural states; M21.41 Flat foot [pes planus] (acquired), right foot; M21.42 Flat foot [pes planus] (acquired), left foot; E11.42 Type 2 diabetes mellitus with diabetic polyneuropathy; E11.22 Type 2 diabetes mellitus with diabetic chronic kidney disease; Z79.84 Long term (current) use of oral hypoglycemic drugs | CPT/HCPCS: 11042 ==

== ENCOUNTER → 2023-08-03 11:39 | Outpatient (BNVA) | payer MEDICARE, OTHER, SELFPAY | PROVIDERS: PCP Family Medicine; Visit Provider Podiatrist Foot & Ankle Surgery | DX: E11.621 Type 2 diabetes mellitus with foot ulcer (principal); L97.522 Non-pressure chronic ulcer of other part of left foot with fat layer exposed; N18.31 Chronic kidney disease, stage 3a; M21.41 Flat foot [pes planus] (acquired), right foot; M21.42 Flat foot [pes planus] (acquired), left foot; E11.42 Type 2 diabetes mellitus with diabetic polyneuropathy; I73.9 Peripheral vascular disease, unspecified; Z98.890 Other specified postprocedural states; E11.22 Type 2 diabetes mellitus with diabetic chronic kidney disease; Z79.84 Long term (current) use of oral hypoglycemic drugs | CPT/HCPCS: 11042 ==

== ENCOUNTER → 2023-08-17 10:13 | Outpatient (BNVA) | payer MEDICARE, OTHER, SELFPAY | PROVIDERS: PCP Family Medicine; Visit Provider Podiatrist Foot & Ankle Surgery | DX: E11.621 Type 2 diabetes mellitus with foot ulcer; L97.522 Non-pressure chronic ulcer of other part of left foot with fat layer exposed; N18.31 Chronic kidney disease, stage 3a; Z89.421 Acquired absence of other right toe(s); E11.42 Type 2 diabetes mellitus with diabetic polyneuropathy; Z79.84 Long term (current) use of oral hypoglycemic drugs | CPT/HCPCS: 99213 ==

== ENCOUNTER → 2023-09-01 07:21 | Outpatient (BNVA) | payer MEDICARE, OTHER, SELFPAY | PROVIDERS: PCP Family Medicine; Visit Provider Internal Medicine Pulmonary Disease | DX: J44.9 Chronic obstructive pulmonary disease, unspecified (principal); Z87.891 Personal history of nicotine dependence | CPT/HCPCS: 99214 ==

== ENCOUNTER → 2023-09-05 10:12 | Outpatient (BNVA) | payer MEDICARE, OTHER, SELFPAY | PROVIDERS: PCP Family Medicine; Visit Provider Podiatrist Foot & Ankle Surgery | DX: N18.31 Chronic kidney disease, stage 3a (principal); M21.41 Flat foot [pes planus] (acquired), right foot; M21.42 Flat foot [pes planus] (acquired), left foot; E11.42 Type 2 diabetes mellitus with diabetic polyneuropathy; L97.522 Non-pressure chronic ulcer of other part of left foot with fat layer exposed; E11.22 Type 2 diabetes mellitus with diabetic chronic kidney disease; E11.621 Type 2 diabetes mellitus with foot ulcer | CPT/HCPCS: 99213 ==

== ENCOUNTER → 2023-09-07 16:24 | Outpatient (BNVA) | payer MEDICARE, OTHER, SELFPAY | PROVIDERS: PCP Family Medicine; Visit Provider Internal Medicine | DX: Z45.010 Encounter for checking and testing of cardiac pacemaker pulse generator [battery] (principal) | CPT/HCPCS: 93296 ==

== ENCOUNTER → 2023-09-13 11:49 | Outpatient (BNVA) | payer MEDICARE, OTHER, SELFPAY | PROVIDERS: PCP Family Medicine; Visit Provider Internal Medicine | DX: J44.9 Chronic obstructive pulmonary disease, unspecified (principal); I13.0 Hypertensive heart and chronic kidney disease with heart failure and stage 1 through stage 4 chronic kidney disease, or unspecified chronic kidney disease; I50.32 Chronic diastolic (congestive) heart failure; N18.31 Chronic kidney disease, stage 3a; N17.9 Acute kidney failure, unspecified; I25.10 Atherosclerotic heart disease of native coronary artery without angina pectoris; Z95.0 Presence of cardiac pacemaker; I44.30 Unspecified atrioventricular block; G47.33 Obstructive sleep apnea (adult) (pediatric); Z87.891 Personal history of nicotine dependence | CPT/HCPCS: 99214 ==

== ENCOUNTER → 2023-09-26 09:00 | Outpatient (BNVA) | payer MEDICARE, OTHER, SELFPAY | PROVIDERS: PCP Family Medicine; Visit Provider Podiatrist Foot & Ankle Surgery | DX: N18.31 Chronic kidney disease, stage 3a (principal); M21.41 Flat foot [pes planus] (acquired), right foot; M21.42 Flat foot [pes planus] (acquired), left foot; E11.42 Type 2 diabetes mellitus with diabetic polyneuropathy; Z79.84 Long term (current) use of oral hypoglycemic drugs | CPT/HCPCS: 99213 ==

== ENCOUNTER 2023-10-13 06:36 | Inpatient (IN) | payer MEDICARE, OTHER, SELFPAY ==
[2023-10-13] VITALS (71 sets, daily range): BP systolic 68–211; BP diastolic 42–82; PULSE 70–115; RESP 16–34; TEMP 36.3–36.9; O2SAT 84–100; BMI 28.7
[2023-10-13] MEDS: etomidate 2 mg/mL INJ SDV 10 mL 20 MG IVP (06:43)
[2023-10-13] MEDS: vecuronium 10 mg SDV IVP (06:43)
--- NOTE | 2023-10-13 06:48 | XRR_ITS ---
PROCEDURE INFORMATION: Exam: XR Chest Exam date and time: 10/13/2023 6:51 AM Age: 78 years old Clinical indication: Device placement; Ett placement (vent status); Prior surgery; Surgery date: 6+ months; Surgery type: Bypass, pacemaker; Additional info: Dyspnea/cough TECHNIQUE: Imaging protocol: Radiologic exam of the chest. Views: 1 view. COMPARISON: CR XR chest 1V portable [id number] 04/17/2023 1:10 PM FINDINGS: Tubes, catheters and devices: Placement of ETT and NGT, both appear in place. The tip of ETT is about 4 cm above angelo. Lungs: Moderate COPD with diffuse interstitial lung scarring or edema. No new or progressive consolidation. Pleural spaces: Unremarkable. No pleural effusion. No pneumothorax. Heart/Mediastinum: The heart is large. CABG, atherosclerosis, left-sided pacing device. Bones/joints: Few old left rib deformities. XR/XR chest 1V portable [id number] IMPRESSION: Stable exam after placement of ETT and NGT.
--- NOTE | 2023-10-13 06:49 | ECG_ITS ---
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 Measurements Intervals [place] Rate: 100 P: 0 MS: 0 QRS: -64 QRSD: 181 T: 98 QT: 383 QTc: 495 Interpretive Statements Atrial fibrillation Demand V pacing ELECTRONIC VENTRICULAR PACEMAKER ABNORMAL RHYTHM ECG INTERPRETATION BASED ON A DEFAULT AGE OF 40 YEARS Compared to ECG 07/18/2022 06:45:11 Atrial-paced complex(es) or rhythm no longer present Electronically Signed On 10-13-2023 22:06:43 CDT by Debbie Clark M.D. [id number]
--- NOTE | 2023-10-13 06:50 | ED_ITS ---
HPI - SOB/Dyspnea 2 General: Chief Complaint: Shortness of Breath/Dyspnea Stated Complaint: SOB Time Seen by Provider: 10/13/23 06:40 Source: EMS Mode of arrival: EMS Limitations: altered mental status History of Present Illness: HPI Narrative: 78-year-old male patient arrives nonresp onsive and acute respiratory failure. History per EMS and review of old charts. EMS reports that when they arrived she is tripoding with satting in the 70s he seemed to improve with nebulizers initially and then worsened again. He was transported via EMS given DuoNeb nebulizer and 125 of IV Solu-Medrol and route. On arrival here patient is nonresponsive with severe respiratory distress weakening respiratory effort. Nonresponsive to verbal or aggressive painful stimuli. Decision was made to intubate due to his clinical appearance work of breathing and reported rapid decline. EMS reports that he had been started on albuterol regularly over the last few days has been having increasing difficulty with his COPD. There was no report at the scene of patient having chest pain. EMS states initially when they arrived he was in respiratory distress but was conversant with them briefly deteriorated and route initially there is no family here to contribute to history. MD elicited complaint: shortness of breath Pertinent past history: COPD and congestive heart failure Onset (ago): day(s) Context: recent illness Timing: constant Severity: severe Known history of: COPD and congestive heart failure Treatment prior to arrival: oxygen, bronchodilator and other (Steroids) Related Data: Home oxygen amount: 3 liters Review of Systems 2 General: Reports: ROS unobtainable due to medical condition [facility]LY [facility], [facility]1983 ED 2 PFS: Medical History (Updated 10/13/23 @ 17:00 by Jacinto Hope DO) Pacemaker Pneumonia Peripheral angiopathy due to diabetes mellitus Amputation of one or more toes CHF exacerbation Influenza Hypoxia Peripheral arterial disease with history of revascularization Ex-smoker for more than 1 year Chronic kidney disease Peripheral neuropathy Smoker within last 12 months Hemoptysis -hemoptysis noted with continued drop in Hg (10.9--->8.8) -continue to monitor H/H closely and continue to hold AC; INR-1.04; has been off heparin x > 72 hrs -Consult by Dr. 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 Unable to lay flat for imaging and then decompensated and had to be intubated -pending ALMAS, ANCA, anti-dsDNA, SAUL; ESR-19, CRP-6.0, C3-106, C4-24 Obesity -BMI-31 kg/m2 Non-insulin dependent diabetes mellitus HTN (hypertension) Chronic anemia -baseline Hg around 10 CKD (chronic kidney disease) stage 2, GFR 60-89 ml/min -baseline Cr wnl HAZEL (acute kidney injury) AV heart block COPD exacerbation -acute COPD exacerbation; likely triggered by pneumonia -not oxygen dependent at baseline; may need home oxygen evaluation prior to d/c -continue to monitor respiratory status -on steroids (switched to IV), Neb treatments and antibiotics -supplemental oxygen as needed Hypoxia Fracture, femoral CAD (coronary artery disease) DARIUS (obstructive sleep apnea) -CPAP qhs COPD (chronic obstructive pulmonary disease) Congestive heart failure Community acquired pneumonia Surgical History Hx of cholecystectomy Hx of CABG Family History Mother CAD (coronary artery disease) Social History (Updated 10/13/23 @ 12:57 by Arnol Barclay MD) Smoking and tobacco/nicotine status: current every day tobacco/nicotine user Quit status (tobacco/nicotine): has quit using Year quit tobacco: 2015 - 1ppd x 60 Second hand smoke exposure: No Alcohol intake: never Substance/Drug Use: never Lives independently: Yes Household members: spouse Marital status: Current occupational status: retired Do you think of yourself as: Straight/Heterosexual Current gender identity: Male Physical Exam 2 HENMT: COMMON NORMALS: normocephalic, atraumatic and hearing grossly normal bilaterally HEAD & SCALP: normocephalic and atraumatic Resp: EFFORT & INSPECTION: Yes abnormal respiratory pattern, Yes tachypneic, Yes respiratory distress, Yes decreased respiratory effort, Yes labored, Yes retractions, Yes uses accessory muscles and Yes audible wheezes AUSCULTATION: rhonchi Cardio: COMMON NORMALS: regular rate, regular rhythm and No murmurs present (Cardio) RATE: regular rate RHYTHM: regular rhythm GI: COMMON NORMALS: Soft to palpation and No hepatosplenomegaly present A USCULTATION: Yes normoactive bowel sounds PALPATION: Yes Soft to palpation, No Tenderness to palpation present (GI), No Guarding due to palpation present (GI) and Yes No hepatosplenomegaly present Extremity: COMMON NORMALS: capillary refill normal, no clubbing, cyanosis or edema, no calf tenderness and no pedal edema Skin: COMMON NORMALS: no rashes or lesions noted GENERAL SKIN EXAM: no rashes or lesions noted Procedures Central Line Placement Right IJ: Time Out Performed: Yes Patient Placed on Monitor/Pulse Ox: Yes MD Prep: mask and gown Central Line Prep: Chlorhexidine scrub Ultrasound Used for Placement: Yes Central Line Lumen Inserted: triple Post Procedure: sutured in place, good blood return, all ports aspirated, flushed, capped and sterile dressing applied Post Procedure X-Ray: tip of catheter in good position and no pneumothorax seen Patient Tolerated Procedure: well Complications: none Intubation sedative: Etomidate Mg Given: 20 paralytic: Vecuronium Mg Given: 10 Laryngoscope: Cecilio ET Tube Size: 8 ET Tube Uncuffed: No Tube Secured Depth (cm): 26 Tube Secured Location: lips Tube Placement Confirmation: visualized tube passing through cords, equal breath sounds bilaterally, no breath sounds over epigastrium and confirmation by capnometry Patient Tolerated Procedure: well Intubation Complications: none Course 2 Vital Signs: Vital signs: Vital Signs Temperature 98.4 F 10/13/23 14:00 Pulse Rate 71 10/13/23 16:00 Respiratory Rate 18 10/13/23 16:00 Blood Pressure 153/67 10/13/23 16:00 Pulse Oximetry 96 10/13/23 16:00 Oxygen Delivery Me thod Mechanical Ventil ation 10/13/23 16:00 Oxygen Flow Rate 5 10/13/23 06:46 Fraction of Inspir ed Oxygen 40 10/13/23 16:00 MDM - SOB/Dyspnea Medical Decision Making Acute respiratory failure, pneumonia, elevated troponin possible NSTEMI, CHF, acute kidney injury, sepsis. Patient intubated immediately on arrival resuscitative efforts applied. Limited fluid bolus because of congestive heart failure. Initially patient hyper tensive became hypotensive after sedation for ventilator. Have initiated antibiotics. Serial troponins. I did review EKG with Dr. Max on-call for intervention. Patient is paced does not appear to be meeting Sgarbossa's criteria Dr. Max agreed. Will admit to the ICU. Dr. Encarnacion has seen the patient and reviewed with the family. He is a full code at this time. Medical Records I reviewed the patient's medical records. Lab Data I reviewed the patient's lab results. 10/13/23 06:41 10/13/23 06:41 Labs/Radiology: Radiology Impressions Head CT 10/13/23 07:36 IMPRESSION: No acute intracranial process. ASSESSMENT: ASPECTS ([place] Stroke Program Early CT Score) is 10. Laboratory Results WBC 28.90 10^3/uL (3.29-11.43) H 10/13/23 06:41 RBC 4.08 10^6/uL (3.85-5.65) 10/13/23 06:41 Hgb 11.10 g/dL (11.27-16.99) L 10/13/23 06:41 Hct 37.4 % (37-53) 10/13/23 06:41 MCV 91.7 fl (82-101) 10/13/23 06:41 MCH 27.2 pg (27-33) 10/13/23 06:41 MCHC 29.7 g/dL (30-55) L 10/13/23 06:41 RDW 15.2 % (12.1-15.1) H 10/13/23 06:41 Plt Count 363 10^3/cmm (157-399) 10/13/23 06:41 MPV 10.3 fL (7.4-10.4) 10/13/23 06:41 Neut % (Auto) 76.2 % 10/13/23 06:41 Lymph % (Auto) 15.1 % 10/13/23 06:41 [place] % (Auto) 7.0 % 10/13/23 06:41 Eos % (Auto) 0.2 % 10/13/23 06:41 Baso % (Auto) 0.4 % 10/13/23 06:41 Neut # (Auto) 22.04 10^3/uL (1.8-7.7) H 10/13/23 06:41 Lymph # (Auto) 4.4 10^3/uL (0.8-4.8) 10/13/23 06:41 [place] # (Auto) 2.0 10^3/uL (0.2-0.9) H 10/13/23 06:41 Eos # (Auto) 0.1 10^3/uL (0.0-0.8) 10/13/23 06:41 Baso # (Auto) 0.1 10^3/uL (0.0-0.1) 10/13/23 06:41 Nucleated RBC % (auto) 0 % 10/13/23 06:41 Nucleated RBCs # 0.0 /100WBC 10/13/23 06:41 PT 13.30 SECONDS (12.1-14.9) 10/13/23 06:41 INR 0.98 (0.8-1.2) 10/13/23 06:41 APTT 26.3 SECONDS (23.9-36.7) 10/13/23 06:41 Specimen Type Arterial 10/13/23 07:56 Sample Site Radial, right 10/13/23 07:56 ABG pH 7.25 (7.35-7.45) L 10/13/23 07:56 ABG pCO2 60.2 mmHg (35-45) H* 10/13/23 07:56 ABG pO2 118.0 mmHg (80.0-100.0) H 10/13/23 07:56 ABG PO2/FiO2 Ratio 0 10/13/23 07:56 ABG HCO3 26.2 mmol/L (22-26) H 10/13/23 07:56 ABG O2 Saturation 98.4 10/13/23 07:56 ABG Base Excess -1.9 mmol/L (-2.0-2.0) 10/13/23 07:56 Carlo Test Pos 10/13/23 07:56 A-a O2 Gradient 21.6 mmHg (5-10) H 10/13/23 07:56 Hematocrit 35.1 % (42-52) L 10/13/23 07:56 Hgb O2 Saturation 97.3 % (95-100) 10/13/23 07:56 Carboxyhemoglobin 0.9 %THgb (0.4-20.1) 10/13/23 07:56 Methemoglobin 0.3 % (0.4-1.5) L 10/13/23 07:56 Total Hemoglobin 11.5 g/dL (14-18) L 10/13/23 07:56 Sodium 144.0 mmol/L (131-143) H 10/13/23 07:56 Potassium 4.4 mmol/L (3.5-5.0) 10/13/23 07:56 Glucose 199.0 mg/dL (70-115) H 10/13/23 07:56 Ionized Calcium 1.2 mmol/L (1.1-1.4) 10/13/23 07:56 O2 Delivery Device Vent 10/13/23 07:56 FiO2 50.0 % 10/13/23 07:56 Tidal Volume 0.58 10/13/23 07:56 PEEP 6.0 cmH20 10/13/23 07:56 Manager Property ID glc 10/13/23 07:56 Sodium 142 mmol/L (136-145) 10/13/23 06:41 Potassium 4.9 mmol/L (3.5-5.1) 10/13/23 06:41 Chloride 104 mmol/L (98-107) 10/13/23 06:41 Carbon Dioxide 28 mmol/L (22-29) 10/13/23 06:41 Anion Gap 14.9 (5-19) 10/13/23 06:41 BUN 46 mg/dL (8-23) H 10/13/23 06:41 Creatinine 1.6 mg/dL (0.7-1.2) H 10/13/23 06:41 GFR Calculation Not Reportable 10/13/23 06:41 Glucose 237 mg/dL (65-115) H 10/13/23 06:41 Calculated Osmolality 314 mOsm/kg (285-295) H 10/13/23 06:41 Lactic Acid 2.3 mmol/L (0.5-2.2) H 10/13/23 06:41 Calcium 8.8 mg/dL (8.5-10.5) 10/13/23 06:41 Magnesium 2.0 mg/dL (1.7-2.3) 10/13/23 06:41 Total Bilirubin 0.3 mg/dL (0.15-1.2) 10/13/23 06:41 AST 23 U/L (0-40) 10/13/23 06:41 ALT 26 U/L (0-41) 10/13/23 06:41 Alkaline Phosphatase 145 U/L (40-130) H 10/13/23 06:41 Creatine Kinase 34 U/L (39-308) L 10/13/23 06:41 Troponin T Baseline 66 ng/L (0-15) H 10/13/23 06:41 NT-Pro-B Natriuret Pep 3477 pg/mL (0-450) H 10/13/23 06:41 Total Protein 6.9 g/dL (6.6-8.7) 10/13/23 06:41 Albumin 4.0 g/dL (3.5-5.2) 10/13/23 06:41 Globulin 2.9 g/dL (1.3-4.6) 10/13/23 06:41 Lipase 28 U/L (13-60) 10/13/23 06:41 TSH 3.08 uIU/mL (0.27-4.20) 10/13/23 06:41 Urine Color Yellow (Yellow) 10/13/23 06:41 Urine Appearance Hazy (CLEAR) A 10/13/23 06:41 Urine pH 5 (5-7) 10/13/23 06:41 Ur Specific Tim[place] 1.015 (1.005-1.030) 10/13/23 06:41 Urine Protein Neg (Negative) 10/13/23 06:41 Urine Glucose (UA) Norm (Normal) 10/13/23 06:41 Urine Ketones Negative (Negative) 10/13/23 06:41 Urine Blood Neg (Negative) 10/13/23 06:41 Urine Nitrate Negative (Negative) 10/13/23 06:41 Urine Bilirubin Neg (Negative) 10/13/23 06:41 Urine Urobilinogen Neg mg/dL (Negative) 10/13/23 06:41 Ur Leukocyte Esterase Negative (Negative) 10/13/23 06:41 Urine RBC 0-4 /hpf (0-2) H 10/13/23 06:41 Urine WBC 0-4 /hpf (0-5) H 10/13/23 06:41 Ur Squamous Epith Cells 0-4 /hpf (0-5) H 10/13/23 06:41 Ur Transition Epith Cell 5-10 /hpf 10/13/23 06:41 Amorphous Sediment Not Reportable 10/13/23 06:41 Urine Bacteria Trace /hpf (NONE) 10/13/23 06:41 Serum Ketones Negative (Negative) 10/13/23 06:41 Coronavirus 229E (PCR) Detected (NOT DETECT) A 10/13/23 07:22 SARS-CoV-2 (PCR) Not detected (NOT DETECT) 10/13/23 07:22 All radiology interpretation(s) finalized by discharge Critical Care Time 2 Critical Care Time: Critical Care Time: Yes Total Critical Care Time: 60 Attestation: The high probability of a clinically significant, sudden or life threatening deterioration of the patient's cardiovascular and respiratory system(s) required my full and direct attention, intervention and personal management. The critical care time is as shown. This time is in addition to time spent performing any reported procedures but includes the following: [x] Data and vital sign review and interpretation [x] Patient assessment, examination and intervention [x] Documentation [x] Medication orders and management Discharge Plan Discharge Patient Disposition: Admitted As Inpatient Admit Provider: Arnol Barclay Clinical Impression: HAZEL (acute kidney injury), HTN (hypertension), Non-insulin dependent diabetes mellitus, Congestive heart failure, Acute respiratory failure with hypoxia and hypercapnia, NSTEMI (non-ST elevated myocardial infarction), Hypotension, Sepsis, Acute encephalopathy Condition: Stable Coding Level of Care Code ED Hosiery Bagger for Angelika Mckenzie
--- NOTE | 2023-10-13 06:53 | PC.NURSE ---
RSI 20 ETOMIDATE @0643 10 VEC @0643 TUBE PLACED, 25@ TEETH @06
[2023-10-13] MEDS: midazolam hcl 100 MG/100 ML BAG IV (07:03)
[2023-10-13] MEDS: fentaNYL 1,000 MCG/100 ML BAG 2.5 MCG IV (07:05)
[2023-10-13 07:06] LABS: ABG PH Result 7.21 (7.35-7.45); Arterial Blood Gas Hematocrit 34.8 % (42-52); Base Excess ABG -2.5 mmol/L (-2.0-2.0); Blood Gas Sample Site Brachial, right; Blood Gas Sample Type Arterial; Blood Gas Tidal Volume 0.55; Carboxyhemoglobin 0.7 %THgb (0.4-20.1); HCO3 ABG 26.4 mmol/L (22-26); HGB O2 Sat 99.2 % (95-100); Ionized Calcium Level - ABG 1.2 mmol/L (1.1-1.4); Methemoglobin 0.3 % (0.4-1.5); Oxygen Device VENT; Oxygen Saturation ABG > 100.0; PO2 FiO2 Ratio Arterial Blood 0; Potassium Level - ABG 4.6 mmol/L (3.5-5.0); Total Hemoglobin 11.4 g/dL (14-18)
[2023-10-13] MEDS: aspirin 81 mg Chew Tablet 324 MG NG-TUBE (07:08)
[2023-10-13 07:13] LABS: Protein Urine Neg (Negative); Specific Gravity, Urine 1.015 (1.005-1.030); Urine Color Yellow (Yellow); pH Urine 5 (5-7)
[2023-10-13] MEDS: FUROsemide 10 mg/mL SDV 10mL 60 MG IVP (07:13)
[2023-10-13 07:14] LABS: Bilirubin Urine Neg (Negative); Blood Urine Neg (Negative); Glucose Urine UA Norm (Normal); Ketones Urine Negative (Negative); Leukocyte Esterase Urine Negative (Negative); Nitrate Urine Negative (Negative); Urobilinogen Urine Neg (Negative)
[2023-10-13 07:17] LABS: Add Urine Microscopic? YES; Urine Appearance Hazy (CLEAR)
[2023-10-13 07:21] LABS: Add Urine Culture? No; Bacteria Urine TRACE /hpf; RBC Urine 0-4 /hpf (0-2); Squamous Epithelial Cell Urine 0-4 /hpf (0-5); WBC Urine 0-4 /hpf (0-5)
--- NOTE | 2023-10-13 07:23 | ECG_ITS ---
[facility] Test Date: 2023-10-13 Pat Name: Patience Salcedo Department: Room: Gender: Male Value Analysis Coordinator: : 1945 Requested By: Jacinto Candelario Order Number: [id number] Jeffrey MD: Debbie Clark M.D. Measurements Intervals [place] Rate: 85 P: 133 MN: 203 QRS: -69 QRSD: 158 T: 93 QT: 360 QTc: 429 Interpretive Statements ELECTRONIC ATRIAL PACEMAKER ELECTRONIC VENTRICULAR PACEMAKER ABNORMAL RHYTHM ECG Compared to ECG 10/13/2023 06:37:05 No significant changes Electronically Signed On 10-13-2023 22:15:43 CDT by Debbie Clark M.D. [email or web address]
--- NOTE | 2023-10-13 07:36 | CTR_ITS ---
PROCEDURE INFORMATION: Exam: CT Head Without Contrast Exam date and time: 10/13/2023 8:41 AM Age: 78 years old Clinical indication: Stroke-like symptoms; Altered mental status/memory loss TECHNIQUE: Imaging protocol: Computed tomography of the head without contrast. Radiation optimization: All CT scans at this facility use at least one of these dose optimization techniques: automated exposure control; mA and/or kV adjustment per patient size (includes targeted exams where dose is matched to clinical indication); or iterative reconstruction. Other technique: STROKE PROTOCOL was implemented. COMPARISON: CT angio neck [id number] 04/13/2019 8:36 AM RADIATION DOSE METRICS: Total DLP (mGy-cm): 1185 FINDINGS: Brain: There is no mass effect, midline shift, acute hemorrhage, extra-axial fluid collection or acute lobar infarct. There is age-appropriate frontotemporal volume loss. Cerebral ventricles: No ventriculomegaly. Paranasal sinuses: There is mucosal thickening noted within ethmoid air cells. Mastoid air cells: Visualized mastoid air cells are well aerated. Orbital cavities: The patient is post bilateral cataract surgery. Bones/joints: Unremarkable. No acute fracture. Soft tissues: Unremarkable. Other findings: Fluid in the nasopharynx likely relates to endotracheal and orogastric intubation. CT/CT head wo con* [id number] IMPRESSION: No acute intracranial process. ASSESSMENT: ASPECTS ([place] Stroke Program Early CT Score) is 10.
[2023-10-13 07:39] LABS: Basophils # 0.1 10^3/uL (0.0-0.1); Basophils % 0.4 %; Eosinophils # 0.1 10^3/uL (0.0-0.8); Eosinophils % 0.2 %; Hematocrit 37.4 % (37-53); Lymphocytes # 4.4 10^3/uL (0.8-4.8); Lymphocytes % 15.1 %; Mean Corpuscular HGB Conc 29.7 g/dL (30-55); Mean Corpuscular Hemoglobin 27.2 pg (27-33); Mean Corpuscular Volume 91.7 fl (82-101); Mean Platelet Volume 10.3 fL (7.4-10.4); Neutrophils # 22.04 10^3/uL (1.8-7.7); Neutrophils % 76.2 %; Nucleated Red Blood Cells % 0 %; Platelet Count 363 10^3/cmm (157-399); Red Blood Count 4.08 10^6/uL (3.85-5.65); Red Cell Distribution Width 15.2 % (12.1-15.1)
--- NOTE | 2023-10-13 07:44 | PC.PHAR ---
SPOUSE HAS CURRENT MED LIST AND SEPARATE LIST OF NEWEST MEDICATIONS ADDED RECENTLY.
[2023-10-13 07:48] LABS: Ketone (Acetest) Serum Negative (Negative)
[2023-10-13 08:02] LABS: Troponin(5th) Baseline 66 ng/L (0-15)
[2023-10-13 08:03] LABS: Lactic Sepsis W/Reflex 2.3 mmol/L (0.5-2.2)
[2023-10-13 08:08] LABS: Alanine Aminotransferase 26 U/L (0-41); Alkaline Phosphatase 145 U/L (40-130); Anion Gap 14.9 (5-19); Aspartate Amino Transferase 23 U/L (0-40); Blood Urea Nitrogen 46 mg/dL (8-23); Calcium 8.8 mg/dL (8.5-10.5); Carbon Dioxide 28 mmol/L (22-29); Chloride 104 mmol/L (98-107); Globulin 2.9 g/dL (1.3-4.6); Glucose 237 mg/dL (65-115); Lipase 28 U/L (13-60); NT Pro B Type Natriuretic Pept 3477 pg/mL (0-450); Osmolality Calculated 314 mOsm/kg (285-295); Potassium 4.9 mmol/L (3.5-5.1); Sodium 142 mmol/L (136-145); Total Bilirubin 0.3 mg/dL (0.15-1.2); Total Protein 6.9 g/dL (6.6-8.7)
[2023-10-13 08:08] LABS: ABG PH Result 7.25 (7.35-7.45); Alveolar-Arterial Oxygen Gradi 21.6 mmHg (5-10); Arterial Blood Gas Hematocrit 35.1 % (42-52); Base Excess ABG -1.9 mmol/L (-2.0-2.0); Blood Gas Allen Test Pos; Blood Gas Operator Identificat glc; Blood Gas Sample Site Radial, right; Blood Gas Sample Type Arterial; Carboxyhemoglobin 0.9 %THgb (0.4-20.1); HCO3 ABG 26.2 mmol/L (22-26); HGB O2 Sat 97.3 % (95-100); Ionized Calcium Level - ABG 1.2 mmol/L (1.1-1.4); Methemoglobin 0.3 % (0.4-1.5); Oxygen Device VENT; Oxygen Saturation ABG 98.4; PO2 FiO2 Ratio Arterial Blood 0; Potassium Level - ABG 4.4 mmol/L (3.5-5.0); Total Hemoglobin 11.5 g/dL (14-18)
[2023-10-13 08:09] LABS: Blood Gas Tidal Volume 0.58
--- NOTE | 2023-10-13 08:09 | ECG_ITS ---
[facility] Test Date: 2023-10-13 Pat Name: Patience Salcedo Department: Room: [facility] Gender: Male Maintainability Engineer: : 1945 Requested By: Jacinto Candelario Order Number: [id number] Jeffrey MD: Debbie Clark M.D. Measurements Intervals [place] Rate: 114 P: 76 AL: 149 QRS: -18 QRSD: 170 T: 76 QT: 370 QTc: 510 Interpretive Statements ELECTRONIC VENTRICULAR PACEMAKER MARKED ST ELEVATION, CONSIDER LATERAL INJURY [MARKED ST ELEVATION W/O NORMALLY INFLECTED T-WAVE IN I/aVL/V5/V6] ACUTE NE INTERPRETATION BASED ON A DEFAULT AGE OF 40 YEARS Compared to ECG 10/13/2023 07:23:05 ST (T wave) deviation now present Myocardial infarct finding now present Atrial-paced complex(es) or rhythm no longer present Electronically Signed On 10-13-2023 22:15:51 CDT by Debbie Clark M.D. [id number]
[2023-10-13] MEDS: norepinephrine 4 MG/250 ML BAG 30 MG IV ×2 (08:24→15:38)
[2023-10-13] MEDS: propofol 10 mg/mL SDV 20 mL 100 MG IVP (08:25)
[2023-10-13 08:28] LABS: ABG PCO2 60.2 mmHg (35-45)
--- NOTE | 2023-10-13 09:10 | XR_ITS ---
WS: [id number] Portable AP supine chest, 10/13/2023, 0915 hours Clinical Data: POST CENTRAL LINE PLACEMENT Comparison: Portable chest, 10/13/2023, 0655 hours Findings: The right internal jugular venous catheter ends in the midportion of the SVC. The remainder of the tubes remains in good position. The heart and lungs show no change. Impression: Satisfactory insertion of right internal jugular venous catheter.
[2023-10-13 09:13] LABS: Adenovirus Not Detected (NOT DETECT); Chlamydia Pneumoniae Not Detected (NOT DETECT); Human Metapneumovirus Not Detected (NOT DETECT); Human Rhinovirus/Enterovirus Not Detected (NOT DETECT); Influenza A Not Detected (NOT DETECT); Influenza A H1 Not Detected (NOT DETECT); Influenza A H1-2009 Not Detected (NOT DETECT); Influenza A H3 Not Detected (NOT DETECT); Influenza B Not Detected (NOT DETECT); Mycoplasma Pneumoniae Not Detected (NOT DETECT); Parainfluenza Virus Type 1 Not Detected (NOT DETECT); Parainfluenza Virus Type 2 Not Detected (NOT DETECT); Parainfluenza Virus Type 3 Not Detected (NOT DETECT); Parainfluenza Virus Type 4 Not Detected (NOT DETECT); Respiratory Syncytial Virus A Not Detected (NOT DETECT); Respiratory Syncytial Virus B Not Detected (NOT DETECT); SARS-COV-2 Not Detected (NOT DETECT)
[2023-10-13 09:16] LABS: Coronavirus 229E,HKU1,NL63,OC4 Detected (NOT DETECT)
[2023-10-13] MEDS: piperacillin-tazobactam 3.375 GM in sodium chloride 0.9% (plus) 50 ML IV ×2 (09:18→16:36)
[2023-10-13 09:23] LABS: Reflex Lactate Order REFLEX LACTIC ORDERD
[2023-10-13 09:27] LABS: Troponin 5 2HR 87.37 ng/L (0-15)
[2023-10-13 09:33] LABS: Troponin 5 2HR Delta 21.37 ABS# (0-10)
--- NOTE | 2023-10-13 10:31 | PC.NURSE ---
ANTIBIOTICS LATE DUE TO NEED FOR CENTRAL LINE.
[2023-10-13 10:36] LABS: INR 0.98 (0.8-1.2)
[2023-10-13 10:37] LABS: Partial Thromboplastin Time 26.3 SECONDS (23.9-36.7)
--- NOTE | 2023-10-13 11:04 | PC.NURSE ---
PT ALREADY INTUBATED WHEN THIS NURSE ARRIVED. STATES PT WAS SOB BREATH AT HOME AND STATED SEVERAL TIMES HE FELT LIKE HE COULD NOT BREATHE. STATES SHE CALLED EMS TO PICK HIM UP.
[2023-10-13 11:24] LABS: Lactic Acid level (Lactate) 1.6 mmol/L (0.5-2.2)
--- NOTE | 2023-10-13 11:50 | USCV_ITS ---
Patience Salcedo Age: 78 Gender: M : 1945 Exam Date: 10/13/2023 14:33 Ordering Phys: Arnol Barclay MD Technologist: [place] [facility] [place]: sob chf BP: 120 / 68 HR: 62 Rhythm: Sinus Technical Quality: Adequate MEASUREMENTS (Male / Female) Normal Values 2D ECHO LV Diastolic Diameter PLAX 5.3 cm 4.2 - 5.9 / 3.9 - 5.3 cm IVS Diastolic Thickness 1.1 cm 0.6 - 1.0 / 0.6 - 0.9 cm IVS Systolic Thickness 1.5 cm LVPW Diastolic Thickness 1.1 cm 0.6 - 1.0 / 0.6 - 0.9 cm LVPW Systolic Thickness 1.5 cm LVOT Diameter 2.0 cm LV Ejection Fraction 2D Teich 36.5 % LV Ejection Fraction MOD 2C 56.3 % LV Ejection Fraction 2C AL 55.7 % LA Diameter 4.3 cm RA Systolic Volume 4C AL 41.3 ml RA Systolic Volume 4C MOD 39.8 ml Aorta at Sinotubular Diameter 2.9 cm IVC Diameter 2.5 cm M-MODE LA Ao Ratio MM 1.4 AV Cusp Separation MM 2.4 cm DOPPLER AV Peak Velocity 182.0 cm/s LVOT Peak Velocity 106.0 cm/s AV Area Cont Eq vti 2.0 cm squared AV Area Cont Eq pk 1.8 cm squared MV Peak Velocity 303.0 cm/s MV Area PHT 2.6 cm squared Mitral E to A Ratio 0.9 TR Peak Velocity 262.0 cm/s TR Peak Gradient 27.5 mmHg TR Mean Velocity 246.0 cm/s TR Mean Gradient 28.9 mmHg TR Velocity Time Integral 101.7 cm Right Atrial Pressure 8.0 mmHg Pulmonary Artery Systolic Pressu 35.5 mmHg PV Peak Velocity 107.0 cm/s FINDINGS Left Ventricle Normal LV size ejection fraction 56%. Mild hypokinesia of the apical septal segment. Mild concentric left-ventricular hypertrophy. Moderate hypokinesia of the mid and apical anteroseptal segment.Grade II/IV diastolic dysfunction, moderately elevated filling pressures. Right Ventricle Pacemaker wire in the right ventricle.normal right ventricular systolic function. Right Atrium Pacemaker wire in the right atrium Left Atrium Mildly increased left atrial size. Mitral Valve Possibly severe eccentric mitral regurgitation. Possible prolapse of the posterior mitral leaflet Aortic Valve Mild aortic valve regurgitation. Tricuspid Valve Mild tricuspid valve regurgitation. Moderate pulmonary hypertension with an estimated pulmonary artery peak systolic pressure of 69 mmHg. Mean pulmonary artery pressure of 44 mmHg Pulmonic Valve Pulmonic valve not well visualized. Pericardium Normal pericardium without effusion. Aorta Normal ascending aorta dimension. IVC Dilated IVC with decreased respiratory variation. Estimated right atrial pressure of 15 mmHg CONCLUSIONS Normal LV size ejection fraction 56%. Mild hypokinesia of the apical septal segment. Mild concentric left-ventricular hypertrophy. Moderate hypokinesia of the mid and apical anteroseptal segment.Grade II/IV diastolic dysfunction, moderately elevated filling pressures. Possibly severe eccentric mitral regurgitation. Possible prolapse of the posterior mitral leaflet. Mild aortic valve regurgitation. Mild tricuspid valve regurgitation. Moderate pulmonary hypertension with an estimated pulmonary artery peak systolic pressure of 69 mmHg. Mean pulmonary artery pressure of 44 mmHg. Pacemaker wire in the right atrium and right ventricle There is no pericardial effusion. Compared to the study from 01/08/2020, there is worsening of the mitral regurgitation and pulmonary hypertension Dr Debbie Clark MD FAC (Electronically Signed) Final Date: 13 October 2023 20:44 S
--- NOTE | 2023-10-13 11:56 | P.HP_ITS ---
Providers/Chief Complaint 2 Admitting Physician: Arnol Barclay MD Primary Care Provider: Hema Hartman MD Chief Complaint: SOB History of Present Illness Patience Salcedo is a 78 year old male presenting to the hospital with significant shortness of breath. History is taken from the emergency department physician as well as the patient's as he is intubated. He apparently has been ill for the last week, worse in the last several days with significant tiredness, cough. He saw his primary care provider and got some prednisone prescribed. He also got some albuterol for nebulizer. He has not had any fever. Cough has been productive of clear sputum, no blood. There have been no ill contacts in the family that they are aware of. He has not had any nausea vomiting, blood in stool, black or tarry stool. He continues to smoke. Review of Systems 2 General: Reports: ROS unobtainable due to endotracheal tube Medications/Allergies Home Medications Medication Instructions Recorded Confirmed Last Taken Type atorvastatin 40 mg tablet 40 mg PO QPM 01/07/20 10/13/23 10/12/23 History garlic 1,000 mg capsule 1,000 mg PO DAILY 01/07/20 10/13/23 10/12/23 History metformin 500 mg tablet,extended 500 mg PO BID 01/07/20 10/13/23 10/12/23 History release 24 hr montelukast 10 mg tablet 10 mg PO DAILY 01/07/20 10/13/23 10/12/23 History multivitamin (Multiple Vitamins 1 tab PO DAILY 01/07/20 10/13/23 10/12/23 History tablet) omega 9-wfp-siw-fish oil 1,000 mg 1 cap PO DAILY 01/07/20 10/13/23 10/12/23 History (120 mg-180 mg) capsule (Fish Oil) finasteride 5 mg tablet 5 mg PO DAILY 03/07/20 10/13/23 10/12/23 History clopidogrel 75 mg tablet 75 mg PO DAILY #90 tabs 05/12/20 10/13/23 10/12/23 Rx fluticasone fur. 100 mcg-umeclid 1 inh inhalation DAILY 11/18/20 10/13/23 10/12/23 History 62.5 mcg-vilant 25 mcg inhalat.powder (Trelegy Ellipta) fluticasone propionate 50 1 spray intranasal DAILY PRN Dry 02/02/21 10/13/23 04/17/23 History mcg/actuation nasal Nasal Passages spray,suspension furosemide 20 mg tablet 20 mg PO DAILY 07/15/21 10/13/23 10/12/23 History guaifenesin 600 mg tablet, 600 mg PO DAILY 12/17/21 10/13/23 10/12/23 History extended release 12 hr (Mucinex) aspirin 81 mg tablet,delayed 81 mg PO DAILY #90 tabs 12/28/21 10/13/23 10/12/23 Rx release (Adult Aspirin Regimen) cholecalciferol (vitamin D3) 10 10 mcg PO DAILY 02/15/22 10/13/23 10/12/23 History mcg (400 unit) capsule albuterol sulfate 90 mcg/actuation 2 inh inhalation Q8H PRN shortness 07/21/22 10/13/23 08/13/22 Rx aerosol inhaler of breath or wheezing #8.5 grams custom molded accomodative #1 ea 05/18/23 10/13/23 Unknown Rx orthotics and shoes carvedilol 3.125 mg tablet (Coreg) 3.125 mg PO BID #180 tabs 05/30/23 10/13/23 10/12/23 Rx albuterol sulfate 2.5 mg/3 mL 2.5 mg inhalation Q6H PRN 10/13/23 10/13/23 10/12/23 History (0.083 %) solution for nebulization Shortness Of Breath cetirizine 10 mg tablet 10 mg PO DAILY 10/13/23 10/13/23 10/12/23 History prednisone 10 mg tablet See Rx Instructions .Route .COMPLEX 10/13/23 10/13/23 10/12/23 History Allergies Allergy/AdvReac Type Severity Reaction Status Date / Time No Known Allergies Allergy Verified 09/26/23 09:07 PFSH Acute 2 PFSH: Medical History (Updated 10/13/23 @ 13:04 by Arnol Barclay MD) Pacemaker Pneumonia Peripheral angiopathy due to diabetes mellitus Amputation of one or more toes CHF exacerbation Influenza Hypoxia Peripheral arterial disease with history of revascularization Ex-smoker for more than 1 year Chronic kidney disease Peripheral neuropathy Smoker within last 12 months Hemoptysis -hemoptysis noted with continued drop in Hg (10.9--->8.8) -continue to monitor H/H closely and continue to hold AC; INR-1.04; has been off heparin x > 72 hrs -Consult by Dr. 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 Unable to lay flat for imaging and then decompensated and had to be intubated -pending ALMAS, ANCA, anti-dsDNA, SAUL; ESR-19, CRP-6.0, C3-106, C4-24 Obesity -BMI-31 kg/m2 Non-insulin dependent diabetes mellitus HTN (hypertension) Chronic anemia -baseline Hg around 10 CKD (chronic kidney disease) stage 2, GFR 60-89 ml/min -baseline Cr wnl HAZEL (acute kidney injury) AV heart block COPD exacerbation -acute COPD exacerbation; likely triggered by pneumonia -not oxygen dependent at baseline; may need home oxygen evaluation prior to d/c -continue to monitor respiratory status -on steroids (switched to IV), Neb treatments and antibiotics -supplemental oxygen as needed Hypoxia Fracture, femoral CAD (coronary artery disease) DARIUS (obstructive sleep apnea) -CPAP qhs COPD (chronic obstructive pulmonary disease) Congestive heart failure Community acquired pneumonia Surgical History Hx of cholecystectomy Hx of CABG Family History Mother CAD (coronary artery disease) Social History (Updated 10/13/23 @ 12:57 by Arnol Barclay MD) Smoking and tobacco/nicotine status: current every day tobacco/nicotine user Quit status (tobacco/nicotine): has quit using Year quit tobacco: 2015 - 1ppd x 60 Second hand smoke exposure: No Alcohol intake: never Substance/Drug Use: never Lives independently: Yes Household members: spouse Marital status: Current occupational status: retired Do you think of yourself as: Straight/Heterosexual Current gender identity: Male Vitals/I&O/Wt Last Vital Signs Temp 97.5 F L 10/13/23 07:05 Pulse 98 10/13/23 09:30 Resp 18 10/13/23 11:10 BP 108/64 10/13/23 09:30 Pulse Ox 95 10/13/23 11:10 O2 Del Method Mechanical Ventilation 10/13/23 11:10 O2 Flow Rate 5 10/13/23 06:46 FiO2 40 10/13/23 11:10 10/12/23 10/13/23 10/13/23 22:59 06:59 14:59 Intake Total 69.367 / 69.367 Balance 69.367 / 69.367 Weight last 48 hrs Weight 90.809 kg Weight 95.254 kg Weight 200 g Physical Exam 2 Narrative: General exam is a white male, intubated and sedated. and daughter are at bedside. HEENT: Atraumatic normocephalic. Pupils equally round. Endotracheal tube noted. Neck is supple no lymphadenopathy or thyromegaly. Central line noted, right IJ Cardiovascular regular rate and rhythm, heart sounds distant Lungs bilateral expiratory wheezes, no crackles Abdomen is soft with positive bowel sounds. No obvious organomegaly. Scar is noted right side of abdomen. exam demonstrates Rothman Skin no rash Extremities no cyanosis clubbing. 1+ edema noted. Foot ulcer noted on the right with intact skin. Family reports it is in the process of healing Neuro no obvious focal deficits but patient is intubated and sedated Urinary Catheter Management: Rothman: Cath Placed During This Visit: yes Urinary Catheter Date of Insertion: 10/13/23 Urinary Catheter Time of Insertion: 06:55 Data 10/13/23 06:41 10/13/23 06:41 Other Labs: PT and PTT are normal ABG demonstrates pH initially of 7.21, pCO2 of 66, pO2 of 436 on 100% FiO2 Lactic acid 2.3 LFTs normal with exception of alk phos of 145 BNP 3477 Troponin 66 with repeat of 87 TSH pending Magnesium normal Urinalysis 0-4 reds 0-4 whites COVID negative. 229 ED coronavirus positive Chest x-ray per my read diffuse interstitial infiltrate. Some of this has been present before. Endotracheal tube and NG tube noted Head CT no acute changes EKG per my evaluation paced ventricular rhythm Micro: Microbiology 10/13/23 08:20 Gram Stain - Final Sputum - Endotracheal Tube Aspirate 10/13/23 06:56 Blood Culture - Preliminary Blood SPECIMEN COLLECTED 10/13/23 06:41 Blood Culture - Preliminary Blood SPECIMEN COLLECTED A&P Assessment and plan (1) Acute respiratory failure with hypoxia and hypercapnia: Endotracheal intubation. Wean FiO2 as tolerated. Currently on a PEEP of 8. Repeat ABG tomorrow. (2) Chronic obstructive pulmonary disease with (acute) exacerbation: IV steroids Pulmonary toilet with budesonide and DuoNeb (3) Pneumonia: Concern of pneumonia with bilateral infiltrates Vancomycin and Zosyn Sputum culture MRSA PCR (4) NSTEMI (non-ST elevated myocardial infarction): Concern with elevated troponin. This may represent a non-ST elevation myocardial infarction Continue Plavix Reinitiate patient's beta-dixon, when hypotension resolves Continue Plavix Continue statin (5) Hypotension: Patient with significantly low blood pressure, requiring norepinephrine during his emergency department course Titrate as tolerated (6) Elevated brain natriuretic peptide (BNP) level: Check echocardiogram Avoid extra fluid at this point. Note that he was given a Lasix x 1 in the emergency department (7) HAZEL (acute kidney injury): Patient with acute kidney injury superimposed on chronic kidney disease. Monitor closely for recovery. Avoid renal toxic medication. CBC, CMP daily (8) Acute encephalopathy: Patient with acute encephalopathy. This could be secondary to sepsis, elevated CO2. Monitor closely for improvement. CT head negative. (9) Sepsis: Patient with concerns for sepsis with focus of infection pneumonia, hypotension, elevated white blood cell count, organ dysfunction of encephalopathy and renal dysfunction. Lactic acid was elevated on first check. Not a candidate for fluid resuscitation secondary to probable cardiac dysfunction with elevated BNP, evidence of extra peripheral fluid. Plan Peripheral vascular disease with history of foot ulcers. Treat pressure off areas History of hyperglycemia/diabetes. Sliding scale insulin Other medical problems as outlined in past medical history Full code currently Heparin will suffice for DVT prophylaxis Attestations 2 Medical Necessity Statement*: Will need greater than 2 midnight stay for evaluation and treatment of respiratory failure requiring mechanical ventilation Critical Care Time: The high probability of a clinically significant, sudden or life threatening deterioration of the patient's [cardiac, renal, neurologic, pulmonary] system(s) required my full and direct attention, intervention and personal management. The critical care time is as shown. This time is in addition to time spent performing any reported procedures but includes the following: [x] Data and vital sign review and interpretation [x] Patient assessment, examination and intervention [x] Documentation [x] Medication orders and management Critical Care Time (min): 66 Coding Level of Care Code Critical Care >/= 30 minutes Diagnoses Acute respiratory failure with hypoxia and hypercapnia J96.01; J96.02 Chronic obstructive pulmonary disease with (acute) exacerbation J44.1 Pneumonia J18.9 NSTEMI (non-ST elevated myocardial infarction) I21.4 Hypotension I95.9 Elevated brain natriuretic peptide (BNP) level R79.89 HAZEL (acute kidney injury) N17.9 Acute encephalopathy G93.40 Sepsis A41.9 Time Spent (min) 66
[2023-10-13 12:58] LABS: ABG PCO2 41.5 mmHg (35-45); ABG PH Result 7.42 (7.35-7.45); Alveolar-Arterial Oxygen Gradi 15.8 mmHg (5-10); Arterial Blood Gas Hematocrit 32.9 % (42-52); Base Excess ABG 2.3 mmol/L (-2.0-2.0); Blood Gas Operator Identificat GD; Blood Gas Sample Site Brachial, right; Blood Gas Sample Type Arterial; Blood Gas Tidal Volume 0.56; Carboxyhemoglobin 1.6 %THgb (0.4-20.1); HGB O2 Sat 97.7 % (95-100); Ionized Calcium Level - ABG 1.1 mmol/L (1.1-1.4); Methemoglobin 0.4 % (0.4-1.5); Oxygen Device VENT; Oxygen Saturation ABG 99.7; PO2 FiO2 Ratio Arterial Blood 0; Potassium Level - ABG 4.2 mmol/L (3.5-5.0); Total Hemoglobin 10.7 g/dL (14-18)
[2023-10-13 13:23] LABS: Creatine Phosphokinase 34 U/L (39-308)
[2023-10-13] MEDS: ipratropium-albuterol 3 mL Neb INHALATION ×2 (13:33→21:01)
[2023-10-13 13:35] LABS: Thyroid Stimulating Hormone 3.08 uIU/mL (0.27-4.20)
[2023-10-13 13:51] LABS: Troponin 5 6HR 108.1 ng/L (0-15); Troponin 5 6HR Delta 42.1 ng/L (0-12)
[2023-10-13] MEDS: vancomycin 1,500 MG/300 ML PIGGYBACK 200 MG IV (14:05)
[2023-10-13] MEDS: propofol 1,000 MG/100 ML INJ 5.45000000000000018 MG IV ×2 (14:05→23:41)
[2023-10-13] MEDS: methylPREDNISolone sod succ 125 mg/2 mL INJ 60 MG IVP ×2 (14:06→23:48)
[2023-10-13] MEDS: heparin drip 25,000 UNIT/500 ML PREMIX 25.4299999999999997 UNIT IV (14:06)
--- NOTE | 2023-10-13 14:33 | PC.NURSE ---
Versed wasted. 81.333 ml . See MAR. Witness by Mnyor Quintana RN.
[2023-10-13] MEDS: fentaNYL 1,000 MCG/100 ML BAG 10 MCG IV (15:38)
[2023-10-13 16:48] LABS: Glucose Point of Care 208 mg/dL (70-110)
[2023-10-13] MEDS: insulin lispro 100 unit/1 mL SUBCUT ×2 (17:49→21:05)
[2023-10-13] MEDS: atorvastatin 40 mg Tablet PO (17:49)
--- NOTE | 2023-10-13 19:30 | PC.NURSE ---
Shift summary: Late entry. Pt arrived to ICU intubated. He had Levophed infusing at 8mcg/min, Fentanyl 100mcg/hr and Versed at 3 mg/hr. He did open his eyes to pain. His cardiac rhythm changed through the day. first degree block to sinus rhythm. No change with BBB. Sedation medications were changed: versed stopped and Propofol started. He is on a low dose at 20mcg/kg/min. Heparin gtt started. He only tolerated Levophed down by 1 mcg/min to 7. He does have two scabbed areas near his amputated toes. He had 925ml of urine output. Family remained at bedside .
[2023-10-13 20:50] LABS: Partial Thromboplastin Time 94.1 SECONDS (23.9-36.7)
[2023-10-13 20:58] LABS: Glucose Point of Care 203 mg/dL (70-110)
[2023-10-13] MEDS: budesonide 0.5 mg/2 mL Neb INHALATION (21:02)
[2023-10-14] VITALS (102 sets, daily range): BP systolic 85–120; BP diastolic 45–82; PULSE 66–102; RESP 18–22; TEMP 36.4–37; O2SAT 90–98; BMI 28.7
[2023-10-14] MEDS: norepinephrine 4 MG/250 ML BAG 26.25 MG IV (00:08)
[2023-10-14] MEDS: fentaNYL 1,000 MCG/100 ML BAG 10 MCG IV ×3 (00:47→20:44)
[2023-10-14] MEDS: piperacillin-tazobactam 3.375 GM in sodium chloride 0.9% (plus) 50 ML IV ×3 (01:07→16:46)
[2023-10-14] MEDS: ipratropium-albuterol 3 mL Neb INHALATION ×4 (03:01→20:06)
[2023-10-14 03:13] LABS: Basophils % 0.2 %; Hematocrit 29.4 % (37-53); Lymphocytes # 0.6 10^3/uL (0.8-4.8); Lymphocytes % 3.1 %; Mean Corpuscular HGB Conc 30.6 g/dL (30-55); Mean Corpuscular Hemoglobin 27.3 pg (27-33); Mean Corpuscular Volume 89.1 fl (82-101); Mean Platelet Volume 9.7 fL (7.4-10.4); Monocytes # 0.4 10^3/uL (0.2-0.9); Monocytes % 1.9 %; Neutrophils # 18.04 10^3/uL (1.8-7.7); Neutrophils % 93.8 %; Nucleated Red Blood Cells % 0 %; Platelet Count 254 10^3/cmm (157-399); Red Cell Distribution Width 14.9 % (12.1-15.1); White Blood Count 19.21 10^3/uL (3.29-11.43)
[2023-10-14 03:39] LABS: Alanine Aminotransferase 27 U/L (0-41); Albumin Level 3.2 g/dL (3.5-5.2); Alkaline Phosphatase 110 U/L (40-130); Anion Gap 16.2 (5-19); Aspartate Amino Transferase 21 U/L (0-40); Blood Urea Nitrogen 46 mg/dL (8-23); Carbon Dioxide 25 mmol/L (22-29); Chloride 102 mmol/L (98-107); Creatinine Clr Calc Pharmacy 33.9412; Glucose 155 mg/dL (65-115); Magnesium 1.9 mg/dL (1.7-2.3); Osmolality Calculated 303 mOsm/kg (285-295); Partial Thromboplastin Time 138.6 SECONDS (23.9-36.7); Potassium 4.2 mmol/L (3.5-5.1); Sodium 139 mmol/L (136-145); Total Bilirubin 0.4 mg/dL (0.15-1.2); Total Protein 6.2 g/dL (6.6-8.7)
[2023-10-14 04:41] LABS: ABG PH Result 7.39 (7.35-7.45); Arterial Blood Gas Hematocrit 28.5 % (42-52); Base Excess ABG 1.5 mmol/L (-2.0-2.0); Blood Gas Sample Site Brachial, left; Blood Gas Sample Type Arterial; Blood Gas Tidal Volume 0.56; HCO3 ABG 26.7 mmol/L (22-26); Oxygen Device VENT; PO2 ABG 75.5 mmHg (80.0-100.0); PO2 FiO2 Ratio Arterial Blood 0
--- NOTE | 2023-10-14 07:00 | XRR_ITS ---
PROCEDURE INFORMATION: Exam: XR Chest Exam date and time: 10/14/2023 7:06 AM Age: 78 years old Clinical indication: Shortness of breath and other: Resp failure TECHNIQUE: Imaging protocol: Radiologic exam of the chest. Views: 1 view. COMPARISON: CR XR chest 1V portable [id number] 10/13/2023 9:12 AM FINDINGS: Tubes, catheters and devices: ETT tip is 34 mm from the level of the angelo. Unchanged NG tube , left-sided pacing device and sternotomy wires. Interval placement of right IJ line with tip overlying the RA. Lungs: Similar right lower lung zone hazy opacities. Interval development of at least mild left pleural effusion, with possible associated consolidate. Pleural spaces: No pneumothorax. Heart/Mediastinum: Unremarkable. No cardiomegaly. Bones/joints: Unremarkable. XR/XR chest 1V portable [id number] IMPRESSION: Interval development of left basilar lung opacities as above.
[2023-10-14] MEDS: budesonide 0.5 mg/2 mL Neb INHALATION ×2 (08:00→20:04)
[2023-10-14 08:21] LABS: Glucose Point of Care 152 mg/dL (70-110)
[2023-10-14] MEDS: clopidogrel 75 mg Tablet PO (09:17)
[2023-10-14] MEDS: finasteride 5 mg Tablet PO (09:17)
[2023-10-14] MEDS: pantoprazole 40 mg SDV IVP (09:17)
[2023-10-14] MEDS: sodium chloride 0.9% 250 ML IV (09:18)
[2023-10-14] MEDS: sodium chloride 0.9% 1,000 ML 50 ML IV (09:18)
[2023-10-14] MEDS: insulin lispro 100 unit/1 mL SUBCUT ×4 (09:18→20:43)
[2023-10-14] MEDS: cetirizine 10 mg Tablet PO (09:18)
--- NOTE | 2023-10-14 09:34 | P.PN_ITS ---
Subjective 2 Subjective: Patience has remained stable overnight. He is not on pressors currently. He is sedated, on the ventilator and history from him is not able to be obtained. Family is present with him and I updated them regarding his medical condition. I also obtained further history from them. Medications: Reviewed: Yes Vitals/I&O/Wt Last Vital Signs Temp 98.6 F 10/14/23 09:00 Pulse 95 10/14/23 09:15 Resp 18 10/14/23 09:00 BP 88/55 10/14/23 09:15 Pulse Ox 92 10/14/23 09:15 O2 Del Method Mechanical Ventilation 10/14/23 09:00 O2 Flow Rate 5 10/13/23 06:46 FiO2 40 10/14/23 09:00 10/13/23 10/14/23 10/14/23 22:59 06:59 14:59 Intake Total 976.402 / 1064.931 555.109 / 1620.040 Output Total 1125 / 1125 350 / 1475 Balance -148.598 / -60.069 205.109 / 145.040 Weight last 48 hrs Weight 90.804 kg Weight 90.804 kg Weight 90.809 kg Weight 95.254 kg Weight 200 g Physical Exam 2 Narrative: General exam is a white male, intubated and sedated. and daughter are at bedside. He will come alert with stimulation, and follows some minor directions. HEENT: Atraumatic normocephalic. Pupils equally round. Endotracheal tube noted. Neck is supple no lymphadenopathy or thyromegaly. Central line noted, right IJ Cardiovascular regular rate and rhythm, heart sounds distant Lungs bilateral expiratory wheezes, no crackles. Wheezing is less than yesterday. Abdomen is soft nontender. Positive bowel sounds exam demonstrates Rothman with urine Extremities no cyanosis clubbing or edema. Foot ulcers unchanged. Neuro no obvious focal deficits Urinary Catheter Management: Rothman: Cath Placed During This Visit: yes Reason for Continuing Indwelling Catheter: Accurate Measurement of Urinary Output in Critically Ill Patients Urinary Catheter Date of Insertion: 10/13/23 Urinary Catheter Time of Insertion: 06:55 Data 10/14/23 03:05 10/14/23 03:05 Micro: Microbiology 10/13/23 06:56 Blood Culture - Preliminary Blood NEGATIVE TO DATE 10/13/23 06:41 Blood Culture - Preliminary Blood NEGATIVE TO DATE 10/13/23 08:20 Gram Stain - Final Sputum - Endotracheal Tube Aspirate A&P Assessment and plan (1) Acute respiratory failure with hypoxia and hypercapnia: Endotracheal intubation. Wean FiO2 as tolerated. Currently on a PEEP of 8. FiO2 down to 40% ABG tomorrow Earliest possible extubation day will be tomorrow (2) Chronic obstructive pulmonary disease with (acute) exacerbation: Reduce IV steroids to every 24 hours Pulmonary toilet with budesonide and DuoNeb (3) Pneumonia: Concern of pneumonia with bilateral infiltrates Continue vancomycin and Zosyn Await sputum culture Await MRSA PCR Await blood culture Reviewed chest x-ray, left lower lobe infiltrate slightly worse, possible small effusion If any significant worsening, consider CT of chest noncontrast or ultrasound to delineate if fluid is present. Appearance to me is similar to admission x-ray. (4) NSTEMI (non-ST elevated myocardial infarction): Concern with elevated troponin. This may represent a non-ST elevation myocardial infarction Continue Plavix Reinitiate patient's beta-dixon, when hypotension resolves Continue Plavix Continue statin Anticoagulated with heparin (5) Hypotension: Patient with significantly low blood pressure, requiring norepinephrine during his emergency department course Continue norepinephrine as needed. Currently off but may require again. (6) Elevated brain natriuretic peptide (BNP) level: Echocardiogram demonstrates ejection fraction 56%, some wall motion abnormalities, grade 2/4 diastolic dysfunction. Severe mitral regurgitation is noted. Moderate pulmonary hypertension. From previous studies there was some worsening of mitral regurgitation (7) HAZEL (acute kidney injury): Patient with acute kidney injury superimposed on chronic kidney disease. Worse today. Will add a little bit of fluid back, monitoring to make sure that renal function does not worsen. May be somewhat difficult to balance considering mitral regurgitation, but hopefully can do so. Avoid renal toxic medication. CBC, CMP daily Small bolus of fluids, then start 50 cc an hour. This will give him approximately 100 cc an hour with his sedative medication Will go ahead and check renal ultrasound. (8) Acute encephalopathy: Patient with acute encephalopathy. This could be secondary to sepsis, elevated CO2. CT head negative He is able to follow direction when sedation is lessened (9) Sepsis: Patient with concerns for sepsis with focus of infection pneumonia, hypotension, elevated white blood cell count, organ dysfunction of encephalopathy and renal dysfunction. Lactic acid was elevated on first check. Not a candidate for fluid resuscitation secondary to probable cardiac dysfunction with elevated BNP, evidence of extra peripheral fluid. Appears to be improving Plan Underlying anxiety. Consider Precedex when attempts are made to wean from ventilator. Peripheral vascular disease with history of foot ulcers. Treat pressure off areas History of hyperglycemia/diabetes. Sliding scale insulin Other medical problems as outlined in past medical history Full code currently Heparin will suffice for DVT prophylaxis Attestations 2 Medical Necessity Statement*: Needs continued hospitalization secondary to respiratory failure requiring mechanical ventilation. Critical Care Time: The high probability of a clinically significant, sudden or life threatening deterioration of the patient's [cardiac, renal, infectious disease] system(s) required my full and direct attention, intervention and personal management. The critical care time is as shown. This time is in addition to time spent performing any reported procedures but includes the following: [x] Data and vital sign review and interpretation [x] Patient assessment, examination and intervention [x] Documentation [x] Medication orders and management Critical Care Time (min): 39 Coding Level of Care Code Critical Care >/= 30 minutes Critical care time (in minutes): 39 The high probability of a clinically significant, sudden or life threatening deterioration, as referenced in this documentation, required my full and direct attention, intervention and personal management. The critical care time shown is in addition to time spent performing any reported separately billable procedures and includes the following: [x] Data and vital sign review and interpretation [x ] Patient assessment, examination and intervention [x] Medication orders and management [x] Patient/Family updates as able [x] Care Coordination and Documentation. Diagnoses Acute respiratory failure with hypoxia and hypercapnia J96.01; J96.02 Chronic obstructive pulmonary disease with (acute) exacerbation J44.1 Pneumonia J18.9 NSTEMI (non-ST elevated myocardial infarction) I21.4 Hypotension I95.9 Elevated brain natriuretic peptide (BNP) level R79.89 HAZEL (acute kidney injury) N17.9 Acute encephalopathy G93.40 Sepsis A41.9
[2023-10-14] MEDS: propofol 1,000 MG/100 ML INJ 8.16999999999999993 MG IV ×2 (09:57→19:07)
--- NOTE | 2023-10-14 10:18 | US_ITS ---
WS: [id number] ULTRASOUND RENAL TECHNIQUE: Ultrasound examination of both kidneys. CLINICAL INFORMATION: renal failure COMPARISON: None. FINDINGS: RIGHT: Right kidney is normal in size Echogenicity: Increased Cortical thickness: 0.9 cm; Normal. Hydronephrosis: None. Perinephric fluid: None. Right kidney measures: 9.9 cm x 5.3 cm x 4.1 cm. LEFT: Limited visualization of the LEFT kidney due to bowel gas Echogenicity: Increased Cortical thickness: 0.8 cm; Normal. Hydronephrosis: None. Perinephric fluid: None. Left kidney measures: 9.2 cm x 4.5 cm x 4.7 cm. Aorta not well seen due to bowel gas. Rothman catheter. IMPRESSION: Technically difficult study due to patient on ventilator 1. No hydronephrosis in either kidney. 2. Rothman catheter. 3. Increased renal echogenicity compatible with medical renal disease. 4. No other acute findings.
[2023-10-14 10:36] LABS: Partial Thromboplastin Time 89.8 SECONDS (23.9-36.7)
[2023-10-14] MEDS: methylPREDNISolone sod succ 125 mg/2 mL INJ 60 MG IVP (10:48)
[2023-10-14] MEDS: vancomycin 1,500 MG/300 ML PIGGYBACK 200 MG IV (12:13)
[2023-10-14 12:23] LABS: Glucose Point of Care 142 mg/dL (70-110)
[2023-10-14 12:40] LABS: Methicillin-Resist S.aureu PCR NOT DETECTED (NOT DETECTED)
[2023-10-14] MEDS: heparin drip 25,000 UNIT/500 ML PREMIX 13 UNIT IV (15:17)
--- NOTE | 2023-10-14 15:33 | PC.SOCIAL ---
Pg 2 IMM. Explained to pt's family Pg 2 IMM. No questions voiced. Provided pt a copy. Initialed, dated, & timed a copy & placed in chart.
[2023-10-14] MEDS: atorvastatin 40 mg Tablet PO (17:43)
[2023-10-14 17:46] LABS: Partial Thromboplastin Time 55.5 SECONDS (23.9-36.7)
--- NOTE | 2023-10-14 18:54 | PC.NURSE ---
SHift SUmmary: Uneventful shift. Off of levophed for most of the day. Vent at 40% fio2. When roused, he Has been able to follow commands, answer yes/no questions, assists with turning appears to understand everything when speaking to him. Otherwise he has been resting comfortably. Denies pain or discomfort. Likely weaning trial tommorow. Total urine output has been 375mL.
[2023-10-14 22:48] LABS: Glucose Point of Care 157 mg/dL (70-110)
[2023-10-15] VITALS (67 sets, daily range): BP systolic 88–134; BP diastolic 40–72; PULSE 70–104; RESP 14–22; TEMP 36.6–37.1; O2SAT 93–100
[2023-10-15] MEDS: propofol 1,000 MG/100 ML INJ 19.0700000000000003 MG IV (00:05)
[2023-10-15] MEDS: piperacillin-tazobactam 3.375 GM in sodium chloride 0.9% (plus) 50 ML IV ×3 (00:06→16:30)
[2023-10-15 00:49] LABS: Partial Thromboplastin Time 47.8 SECONDS (23.9-36.7)
[2023-10-15] MEDS: heparin 5,000 unit/mL INJ 1 mL IV (00:57)
[2023-10-15] MEDS: ipratropium-albuterol 3 mL Neb INHALATION ×4 (01:45→19:58)
[2023-10-15] MEDS: fentaNYL 1,000 MCG/100 ML BAG 12.5 MCG IV (02:46)
[2023-10-15] MEDS: sodium chloride 0.9% 1,000 ML 50 ML IV (04:28)
[2023-10-15 04:53] LABS: ABG PCO2 43.6 mmHg (35-45); ABG PH Result 7.35 (7.35-7.45); Arterial Blood Gas Hematocrit 28.7 % (42-52); Base Excess ABG -1.4 mmol/L (-2.0-2.0); Blood Gas Allen Test Pos; Blood Gas Sample Site Radial, right; Blood Gas Sample Type Arterial; Blood Gas Tidal Volume 0.56; HCO3 ABG 24.2 mmol/L (22-26); Oxygen Device VENT; PO2 ABG 78.5 mmHg (80.0-100.0); PO2 FiO2 Ratio Arterial Blood 0
[2023-10-15 05:15] LABS: Basophils % 0.1 %; Hematocrit 25.7 % (37-53); Lymphocytes # 0.8 10^3/uL (0.8-4.8); Lymphocytes % 4.9 %; Mean Corpuscular HGB Conc 31.1 g/dL (30-55); Mean Corpuscular Hemoglobin 27.7 pg (27-33); Mean Corpuscular Volume 88.9 fl (82-101); Mean Platelet Volume 10.1 fL (7.4-10.4); Monocytes % 5.9 %; Neutrophils # 15.21 10^3/uL (1.8-7.7); Neutrophils % 88.3 %; Nucleated Red Blood Cells % 0 %; Platelet Count 204 10^3/cmm (157-399); Red Blood Count 2.89 10^6/uL (3.85-5.65); White Blood Count 17.21 10^3/uL (3.29-11.43)
[2023-10-15 05:29] LABS: Alanine Aminotransferase 26 U/L (0-41); Alkaline Phosphatase 88 U/L (40-130); Anion Gap 15.6 (5-19); Aspartate Amino Transferase 19 U/L (0-40); Blood Urea Nitrogen 51 mg/dL (8-23); Calcium 7.5 mg/dL (8.5-10.5); Carbon Dioxide 24 mmol/L (22-29); Chloride 105 mmol/L (98-107); Creatinine Clr Calc Pharmacy 38.5015; Globulin 2.5 g/dL (1.3-4.6); Glucose 116 mg/dL (65-115); Osmolality Calculated 307 mOsm/kg (285-295); Potassium 3.6 mmol/L (3.5-5.1); Sodium 141 mmol/L (136-145); Total Bilirubin 0.3 mg/dL (0.15-1.2); Total Protein 5.5 g/dL (6.6-8.7)
[2023-10-15] MEDS: propofol 1,000 MG/100 ML INJ 13.6199999999999992 MG IV (06:02)
--- NOTE | 2023-10-15 07:00 | XRR_ITS ---
PROCEDURE INFORMATION: Exam: XR Chest Exam date and time: 10/15/2023 7:52 AM Age: 78 years old Clinical indication: Other: Follow up resp failure TECHNIQUE: Imaging protocol: Radiologic exam of the chest. Views: 1 view. COMPARISON: CR XR chest 1V portable [id number] 10/14/2023 7:06 AM FINDINGS: Tubes, catheters and devices: Endotracheal tube tip projecting over the mid trachea in satisfactory position. Pacemaker overlying left chest obscuring underlying lung. Enteric tube tip below diaphragm off film. Right-sided central catheter tip not well seen but likely in the region of the superior vena cava/right atrial junction. Lungs: Diffuse interstitial prominence and patchy alveolar lung infiltrates. Retrocardiac atelectasis/infiltrate. Pleural spaces: Small left pleural effusion. Heart/Mediastinum: Cardiac silhouette is borderline in size. Bones/joints: Median sternotomy. XR/XR chest 1V portable [id number] IMPRESSION: Findings compatible with pulmonary vascular congestion. Infection can not be excluded. Recommend clinical correlation.
[2023-10-15 07:29] LABS: Partial Thromboplastin Time 66.1 SECONDS (23.9-36.7)
[2023-10-15 07:41] LABS: Glucose Point of Care 116 mg/dL (70-110)
[2023-10-15] MEDS: budesonide 0.5 mg/2 mL Neb INHALATION ×2 (08:23→19:57)
[2023-10-15] MEDS: cetirizine 10 mg Tablet PO (08:41)
[2023-10-15] MEDS: clopidogrel 75 mg Tablet PO (08:41)
[2023-10-15] MEDS: pantoprazole 40 mg SDV IVP ×2 (08:41→17:29)
[2023-10-15] MEDS: finasteride 5 mg Tablet PO (08:41)
[2023-10-15] MEDS: methylPREDNISolone sod succ 125 mg/2 mL INJ 60 MG IVP (09:37)
[2023-10-15] MEDS: dexmedeTOMIDine 0.9 % NaCL 400 MCG/100 ML PREMIX 2.37999999999999989 MCG IV (09:38)
[2023-10-15 10:13] LABS: Glucose Point of Care 166 mg/dL (70-110)
--- NOTE | 2023-10-15 10:31 | PC.NURSE ---
Heparin drip paused per Dr. San verbal order. MAR updated on Fentanyl, pump running at 75mcg/hr MAR showed 100mch/hr, MAR updated with titration to 50mcg/hr.
[2023-10-15 11:46] LABS: Glucose Point of Care 130 mg/dL (70-110)
[2023-10-15] MEDS: vancomycin 1,500 MG/300 ML PIGGYBACK 200 MG IV (12:23)
--- NOTE | 2023-10-15 14:41 | P.CONIM_ITS ---
Providers/Reason For Consult 2 Consulting Physician/Specialty*: General surgery Reason for Consult*: Upper GI bleeding Attending Physician: Alexis San MD Primary Care Provider: Hema Hartman MD History of Present Illness History of Present Illness Patience Salcedo is a 78 year old male who was admitted to the hospital with respiratory failure and NSTEMI, has been intubated in the ICU. Over the last 24 to 48 hours he has been noted that his hemoglobin has been trending down the output from the NG tube has become bloody. Therefore I was consulted for the possibility of upper endoscopy. Review of Systems 2 General: Reports: ROS unobtainable due to endotracheal tube Medications/Allergies Home Medications Medication Instructions Recorded Confirmed Last Taken Type atorvastatin 40 mg tablet 40 mg PO QPM 01/07/20 10/13/23 10/12/23 History garlic 1,000 mg capsule 1,000 mg PO DAILY 01/07/20 10/13/23 10/12/23 History metformin 500 mg tablet,extended 500 mg PO BID 01/07/20 10/13/23 10/12/23 History release 24 hr montelukast 10 mg tablet 10 mg PO DAILY 01/07/20 10/13/23 10/12/23 History multivitamin (Multiple Vitamins 1 tab PO DAILY 01/07/20 10/13/23 10/12/23 History tablet) omega 0-xpp-goy-fish oil 1,000 mg 1 cap PO DAILY 01/07/20 10/13/23 10/12/23 History (120 mg-180 mg) capsule (Fish Oil) finasteride 5 mg tablet 5 mg PO DAILY 03/07/20 10/13/23 10/12/23 History clopidogrel 75 mg tablet 75 mg PO DAILY #90 tabs 05/12/20 10/13/23 10/12/23 Rx fluticasone fur. 100 mcg-umeclid 1 inh inhalation DAILY 11/18/20 10/13/23 10/12/23 History 62.5 mcg-vilant 25 mcg inhalat.powder (Trelegy Ellipta) fluticasone propionate 50 1 spray intranasal DAILY PRN Dry 02/02/21 10/13/23 04/17/23 History mcg/actuation nasal Nasal Passages spray,suspension furosemide 20 mg tablet 20 mg PO DAILY 07/15/21 10/13/23 10/12/23 History guaifenesin 600 mg tablet, 600 mg PO DAILY 12/17/21 10/13/23 10/12/23 History extended release 12 hr (Mucinex) aspirin 81 mg tablet,delayed 81 mg PO DAILY #90 tabs 12/28/21 10/13/23 10/12/23 Rx release (Adult Aspirin Regimen) cholecalciferol (vitamin D3) 10 10 mcg PO DAILY 02/15/22 10/13/23 10/12/23 History mcg (400 unit) capsule albuterol sulfate 90 mcg/actuation 2 inh inhalation Q8H PRN shortness 07/21/22 10/13/23 08/13/22 Rx aerosol inhaler of breath or wheezing #8.5 grams custom molded accomodative #1 ea 05/18/23 10/13/23 Unknown Rx orthotics and shoes carvedilol 3.125 mg tablet (Coreg) 3.125 mg PO BID #180 tabs 05/30/23 10/13/23 10/12/23 Rx albuterol sulfate 2.5 mg/3 mL 2.5 mg inhalation Q6H PRN 10/13/23 10/13/23 10/12/23 History (0.083 %) solution for nebulization Shortness Of Breath cetirizine 10 mg tablet 10 mg PO DAILY 10/13/23 10/13/23 10/12/23 History prednisone 10 mg tablet See Rx Instructions .Route .COMPLEX 10/13/23 10/13/23 10/12/23 History Allergies Allergy/AdvReac Type Severity Reaction Status Date / Time No Known Allergies Allergy Verified 09/26/23 09:07 Current Medications Generic Name Dose Route Start Last Admin Trade Name Freq PRN Reason Stop Dose Admin Albuterol/Ipratropium 3 ml 10/13/23 14:00 10/15/23 13:49 Ipratropium-Albuterol 3 Ml Neb INHALATION 3 ml Q6H.RESP HANNAH Administration Atorvastatin Calcium 40 mg 10/13/23 18:00 10/14/23 17:43 Atorvastatin 40 Mg Tablet PO 40 mg QPM HANNAH Administration Budesonide 0.5 mg 10/13/23 20:00 10/15/23 08:23 Budesonide 0.5 Mg/2 Ml Neb INHALATION 0.5 mg BID.RESPIRATORY HANNAH Administration Cetirizine HCl 10 mg 10/14/23 09:00 10/15/23 08:41 Cetirizine 10 Mg Tablet PO 10 mg DAILY HANNAH Administration Clopidogrel Bisulfate 75 mg 10/14/23 09:00 10/15/23 08:41 Clopidogrel 75 Mg Tablet PO 75 mg DAILY HANNAH Administration Finasteride 5 mg 10/14/23 09:00 10/15/23 08:41 Finasteride 5 Mg Tablet PO 5 mg DAILY HANNAH Administration Heparin Sodium (Porcine) 0 unit 10/13/23 11:50 10/15/23 00:57 Heparin 5,000 Unit/Ml Inj 1 Ml IV 1,800 unit PRN PRN Administration Heparin weight-base protocol Protocol Fentanyl 1,000 mcg in 100 mls @ 0 mls/hr 10/13/23 06:45 10/15/23 11:29 Sublimaze IV 0 mcg/hr .Q0M HANNAH 0 mls/hr Titration Protocol Per Protocol norepinephrine 4 mg in 250 mls @ 0 mls/hr 10/13/23 08:15 10/15/23 04:25 Levophed IV 0 mcg/min .Q0M HANNAH 0 mls/hr Titration Protocol Per Protocol Piperacillin Sod/Tazobactam 50 mls @ 12.5 mls/hr 10/13/23 17:00 10/15/23 13:09 Sod 3.375 gm/ Sodium Chloride IV Infused Q8H HANNAH Infusion Protocol Heparin Sodium/Sodium Chloride 25,000 unit in 500 mls @ 0 mls/hr 10/13/23 12:00 10/15/23 09:16 Heparin Drip IV 0 unit/kg/hr .Q0M HANNAH 0 mls/hr Titration Protocol Per Protocol Propofol 1,000 mg in 100 mls @ 0 mls/hr 10/13/23 12:30 10/15/23 11:30 Diprivan IV 0 mcg/kg/min .Q0M HANNAH 0 mls/hr Titration Protocol Per Protocol Sodium Chloride 1,000 mls @ 50 mls/hr 10/14/23 09:00 10/15/23 04:28 Sodium Chloride 0.9% IV 50 mls/hr .Q20H HANNAH Administration Dexmedetomidine/Sodium Chloride 400 mcg in 100 mls @ 0 mls/hr 10/15/23 09:30 10/15/23 11:06 Precedex IV 0.4 mcg/kg/hr .Q0M HANNAH 9.5 mls/hr Titration Protocol Per Protocol Insulin Human Lispro 0 unit 10/13/23 12:00 10/15/23 11:52 Insulin Lispro 100 Unit/1 Ml SUBCUT Not Given WM&BEDTIME HANNAH Protocol Methylprednisolone Sodium Succinate 60 mg 10/14/23 10:00 10/15/23 09:37 Methylprednisolone Sod Succ 125 Mg/2 Ml Inj IVP 60 mg Q24H HANNAH Administration PFSH Acute 2 PFSH: Medical History (Updated 10/15/23 @ 14:47 by Lenny Vogel MD) Pacemaker Pneumonia Peripheral angiopathy due to diabetes mellitus Amputation of one or more toes CHF exacerbation Influenza Hypoxia Peripheral arterial disease with history of revascularization Ex-smoker for more than 1 year Chronic kidney disease Peripheral neuropathy Smoker within last 12 months Hemoptysis -hemoptysis noted with continued drop in Hg (10.9--->8.8) -continue to monitor H/H closely and continue to hold AC; INR-1.04; has been off heparin x > 72 hrs -Consult by Dr. 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 Unable to lay flat for imaging and then decompensated and had to be intubated -pending ALMAS, ANCA, anti-dsDNA, SAUL; ESR-19, CRP-6.0, C3-106, C4-24 Obesity -BMI-31 kg/m2 Non-insulin dependent diabetes mellitus HTN (hypertension) Chronic anemia -baseline Hg around 10 CKD (chronic kidney disease) stage 2, GFR 60-89 ml/min -baseline Cr wnl HAZEL (acute kidney injury) AV heart block COPD exacerbation -acute COPD exacerbation; likely triggered by pneumonia -not oxygen dependent at baseline; may need home oxygen evaluation prior to d/c -continue to monitor respiratory status -on steroids (switched to IV), Neb treatments and antibiotics -supplemental oxygen as needed Hypoxia Fracture, femoral CAD (coronary artery disease) DARIUS (obstructive sleep apnea) -CPAP qhs COPD (chronic obstructive pulmonary disease) Congestive heart failure Community acquired pneumonia Surgical History Hx of cholecystectomy Hx of CABG Family History Mother CAD (coronary artery disease) Social History (Updated 10/13/23 @ 12:57 by Arnol Barclay MD) Smoking and tobacco/nicotine status: current every day tobacco/nicotine user Quit status (tobacco/nicotine): has quit using Year quit tobacco: 2015 - 1ppd x 60 Second hand smoke exposure: No Alcohol intake: never Substance/Drug Use: never Lives independently: Yes Household members: spouse Marital status: Current occupational status: retired Do you think of yourself as: Straight/Heterosexual Current gender identity: Male Vitals/I&O/Wt Last Vital Signs Temp 97.8 F 10/15/23 08:00 Pulse 70 10/15/23 14:26 Resp 14 10/15/23 13:55 BP 131/68 10/15/23 14:00 Pulse Ox 98 10/15/23 14:00 O2 Del Method Mechanical Ventilation 10/15/23 13:49 O2 Flow Rate 5 10/13/23 06:46 FiO2 40 10/15/23 13:55 10/14/23 10/15/23 10/15/23 22:59 06:59 14:59 Intake Total 787.121 / 2810.904 1293.561 / 2658.569 332.931 / 332.931 Output Total 100 / 375 800 / 1175 500 / 500 Balance 687.121 / 848.008 635.561 / 1483.569 -167.069 / -167.069 Weight last 48 hrs Weight 209 lb 7.026 oz Weight 200 lb 3 oz Weight 200 lb 3 oz Physical Exam 2 HENMT: OTHER: NG tube was minimal bloody output. GI: OTHER: Abdomen soft, nontender, nondistended. Urinary Catheter Management: Rothman: Cath Placed During This Visit: yes Reason for Continuing Indwelling Catheter: Accurate Measurement of Urinary Output in Critically Ill Patients Urinary Catheter Date of Insertion: 10/13/23 Urinary Catheter Time of Insertion: 06:55 Data 10/15/23 04:56 10/15/23 04:56 Micro: Microbiology 10/13/23 08:20 Gram Stain - Final Sputum - Endotracheal Tube Aspirate Sputum Culture - Final A&P Assessment and plan (1) Congestive heart failure: Qualifiers: Heart failure chronicity: chronic Heart failure type: diastolic Qualified Code(s): I50.32 - Chronic diastolic (congestive) heart failure (2) CHF exacerbation: (3) NSTEMI (non-ST elevated myocardial infarction): (4) HAZEL (acute kidney injury): (5) Sepsis: (6) Upper GI bleeding: Plan After complete history physical examination and review of all available clinical data the following is my assessment. I agree patient may be experiencing upper GI bleeding as evident by drop in the hemoglobin and bloody NG output. I think upper endoscopy is indicated, we will proceed with upper endoscopy tomorrow morning. I have discussed with the patient and the family members the recent benefits of the procedure including the risk of bleeding, infection, need for additional operations, injury to soft tissue of the mouth and pharynx, perforation of the esophagus stomach or duodenum requiring surgical intervention and transfer to higher level of care. Family members agree to proceed. -npo -Continue Protonix twice daily -Continue to trend hemoglobin -Plan for upper endoscopy tomorrow morning Coding Level of Care Code 06487 Diagnoses Chronic diastolic congestive heart failure I50.32 Heart failure chronicity: chronic Heart failure type: diastolic CHF exacerbation I50.9 NSTEMI (non-ST elevated myocardial infarction) I21.4 HAZEL (acute kidney injury) N17.9 Sepsis A41.9 Upper GI bleeding K92.2
[2023-10-15 15:25] LABS: Iron 7 ug/dL (59-158); Percent Saturation 2.5 % (20-50); Total Iron Binding Capacity 278 mcg/dl; Unsaturated Iron Binding 271 ug/dL (112-347); Vitamin B12 836 pg/mL (232-1245)
[2023-10-15] MEDS: fentaNYL 1,000 MCG/100 ML BAG 2.5 MCG IV (16:28)
[2023-10-15 17:02] LABS: Hematocrit 27.6 % (37-53)
--- NOTE | 2023-10-15 17:03 | P.PN_ITS ---
Subjective 2 Subjective: Hospital course, labs appreciated. On examination patient laying comfortably in bed, intubated currently on Precedex. He is awake and following simple commands but in no distress. Family at bedside. Has remained hemodynamically stable and afebrile. Not on pressors. NG tube showing bloody secretions. On intermittent suction which were discontinued. Currently on ventilator settings with FiO2 of 40%, PEEP of 8, tidal volume of 560 Vitals/I&O/Wt Last Vital Signs Temp 98.7 F 10/15/23 16:30 Pulse 70 10/15/23 16:30 Resp 21 H 10/15/23 16:20 BP 95/52 10/15/23 16:30 Pulse Ox 99 10/15/23 16:30 O2 Del Method Mechanical Ventilation 10/15/23 16:30 O2 Flow Rate 5 10/13/23 06:46 FiO2 40 10/15/23 16:20 10/15/23 10/15/23 10/15/23 06:59 14:59 22:59 Intake Total 1435.561 / 2658.569 632.931 / 632.931 51.009 / 683.940 Output Total 800 / 1175 500 / 500 Balance 635.561 / 1483.569 132.931 / 132.931 51.009 / 183.940 Weight last 48 hrs Weight 95 kg Weight 90.804 kg Weight 90.804 kg Physical Exam 2 Narrative: General: Awake, sedated, following commands, intubated, OG tube present HEENT: PERRLA, pupils bilaterally equal and reactive Chest: Bilateral bronchial breath sounds all over lung patel with good equal air entry all over lung patel, diffuse rhonchi CVS: S1-S2 regular, no murmurs, no tachycardia, no gallops, no rubs Abdomen: Soft, nontender, no organomegaly, bowel sounds present Neuro: No focal deficits, no facial deformity, moving all limbs Urinary Catheter Management: Rothman: Cath Placed During This Visit: yes Reason for Continuing Indwelling Catheter: Accurate Measurement of Urinary Output in Critically Ill Patients Urinary Catheter Date of Insertion: 10/13/23 Urinary Catheter Time of Insertion: 06:55 Data 10/15/23 16:47 10/15/23 04:56 Micro: Microbiology 10/13/23 08:20 Gram Stain - Final Sputum - Endotracheal Tube Aspirate Sputum Culture - Final A&P Assessment and plan (1) Acute respiratory failure with hypoxia and hypercapnia: In setting of COPD exacerbation, community-acquired pneumonia secondary to coronavirus infection not COVID-19. Continue intubated for now as patient might required endoscopy. Sedation vacation. Once patient is tired we will switch over to oral support. Sedation with Precedex and fentanyl if possible otherwise we will add propofol. (2) Chronic obstructive pulmonary disease with (acute) exacerbation: Continue with Solu-Medrol 60 mg daily for now. Wean within next 24 hours. Aggressive pulmonary toilet with sedation vacation. Pulmicort twice daily, DuoNebs every 6 hours. (3) Pneumonia: Concern of pneumonia with bilateral infiltrates MRSA swab negative, sputum culture appreciated. Blood cultures so far negative. Continue with IV Zosyn. Discontinue vancomycin. On minimal settings for now. If worsens will plan for CT chest. (4) NSTEMI (non-ST elevated myocardial infarction): Troponins elevated on admission. History of peripheral arterial disease. Echocardiogram done showed EF of 55%, mild hypokinesia of apical septum, mild LVH, moderate hypokinesia of mid and apical anteroseptal segment, grade 2 diastolic dysfunction with a dilated IVC. PASP of 69 mmHg with moderate pulmonary hypertension, possible prolapse of posterior mitral leaflet with severe eccentric MR, mild AI, mild TR. Aspirin rectally 325 mg. Hold off on beta-dixon as patient is borderline hypotensive. Currently Plavix on hold because of possible GI bleed. Put heparin on hold because of GI bleed. Once patient is more stable he will benefit with further ACS workup with Lexiscan stress test versus angiogram. Check A1c, lipid panel. Continue with home dose of statin. (5) Upper GI bleeding: Most likely in setting of being on intermittent suction. Cannot rule out gastric ulcer given stress and being on steroids. Protonix 40 mg twice daily. Add Carafate before meals and at bedtime. Will consult surgery for endoscopy while patient is intubated as he would also need possible cardiac angiogram versus revascularization and would end up needing dual antiplatelet therapy at that time. (6) Hypotension: Goal blood pressure less than 140/90 mmHg with mean over 65. Currently blood pressure stable. Will use Levophed if needed. Hold off on beta-dixon for now. (7) HAZEL (acute kidney injury): Patient with acute kidney injury superimposed on chronic kidney disease. Creatinine at 1.8. Baseline creatinine around 1.3-1.5. BUN mildly elevated most likely in setting of GI bleed. Continue with normal saline at 50 cc/h. Medication reconciliation done for nephrotoxic drugs. Monitor BMP daily for now. Appreciate renal ultrasound. (8) Anemia: In setting of upper GI bleed. Target hemoglobin more than 8. Repeat hemoglobin in evening. Will transfuse accordingly. (9) Elevated brain natriuretic peptide (BNP) level: Echocardiogram demonstrates ejection fraction 56%, some wall motion abnormalities, grade 2/4 diastolic dysfunction. Severe mitral regurgitation is noted. Moderate pulmonary hypertension. From previous studies there was some worsening of mitral regurgitation (10) Acute encephalopathy: Patient with acute encephalopathy. This could be secondary to sepsis, elevated CO2. CT head negative He is able to follow direction when sedation is lessened (11) Sepsis: Patient with concerns for sepsis with focus of infection pneumonia, hypotension, elevated white blood cell count, organ dysfunction of encephalopathy and renal dysfunction. Lactic acid was elevated on first check. Not a candidate for fluid resuscitation secondary to probable cardiac dysfunction with elevated BNP, evidence of extra peripheral fluid. Appears to be improving Plan Underlying anxiety. Peripheral vascular disease with history of foot ulcers. Treat pressure off areas History of hyperglycemia/diabetes: Check A1c. Sliding scale insulin Other medical problems as outlined in past medical history Discussed in detail with patient's family at bedside. Full code currently SCDs for DVT prophylaxis. Heparin on hold as above. Protonix twice daily will be sufficient for PUD prophylaxis. Attestations 2 Medical Necessity Statement*: Requires further hospitalization for management of non-ST elevation NH complicated by upper GI bleed leading to anemia, hypoxic respiratory failure in setting of COPD exacerbation, pneumonia Critical Care Time: The high probability of a clinically significant, sudden or life threatening deterioration of the patient's [GI, cardiac, pulmonary, ID] system(s) required my full and direct attention, intervention and personal management. The critical care time is as shown. This time is in addition to time spent performing any reported procedures but includes the following: [x] Data and vital sign review and interpretation [x] Patient assessment, examination and intervention [x] Documentation [x] Medication orders and management Critical Care Time (min): 90 Coding Level of Care Code Critical Care >/= 30 minutes Critical care time (in minutes): 90 The high probability of a clinically significant, sudden or life threatening deterioration, as referenced in this documentation, required my full and direct attention, intervention and personal management. The critical care time shown is in addition to time spent performing any reported separately billable procedures and includes the following: [x] Data and vital sign review and interpretation [x ] Patient assessment, examination and intervention [x] Medication orders and management [x] Patient/Family updates as able [x] Care Coordination and Documentation. Other Coding Information This patient has a high probability of clinically significant, sudden or life threatening deterioration of the patient's (neurological/pulmonary/cardiac/renal/ID/endocrine) systems required my full, direct attention, the highest level of physician preparedness for urgent intervention and personal management. I managed/supervised life or organ supporting interventions that required frequent physician assessment. I devoted my full attention in the ICU to the direct care of this patient for the period of time indicated above. Time I spent with family or surrogate(s) is included only if the patient was incapable of providing necessary information or participating in decision making. This time includes the following services provided: Telemetry review Mechanical Ventilation Hemodynamic interpretation, assessment and management Review and interpretation of CXR Review and interpretation of lab values Review and interpretation of microbiologic data and culture results Review of medications and administration Review and interpretation of Nutrition requirements and management Discussion of management with other consultants and services Clinical update to family members Diagnoses Acute respiratory failure with hypoxia and hypercapnia J96.01; J96.02 Chronic obstructive pulmonary disease with (acute) exacerbation J44.1 Pneumonia J18.9 NSTEMI (non-ST elevated myocardial infarction) I21.4 Upper GI bleeding K92.2 Hypotension I95.9 HAZEL (acute kidney injury) N17.9 Anemia D64.9 Elevated brain natriuretic peptide (BNP) level R79.89 Acute encephalopathy G93.40 Sepsis A41.9
[2023-10-15 17:13] LABS: Partial Thromboplastin Time 25.1 SECONDS (23.9-36.7)
[2023-10-15 17:24] LABS: Glucose Point of Care 172 mg/dL (70-110)
[2023-10-15] MEDS: atorvastatin 40 mg Tablet PO (17:29)
[2023-10-15] MEDS: insulin lispro 100 unit/1 mL SUBCUT ×2 (17:29→21:29)
[2023-10-15] MEDS: sucralfate 1 gm/10 mL Oral Liq UDC PO ×2 (17:29→21:06)
--- NOTE | 2023-10-15 18:20 | PC.NURSE ---
Per protocol, [facility] contacted.
[2023-10-15] MEDS: dexmedeTOMIDine 0.9 % NaCL 400 MCG/100 ML PREMIX 11.8800000000000008 MCG IV (18:38)
[2023-10-15 20:42] LABS: Glucose Point of Care 150 mg/dL (70-110)
--- NOTE | 2023-10-15 20:45 | PC.NURSE ---
At 1820 we turned patient towards his left side. Patient was awake and prcess explain to him. However, after turning him he became very agitated, shaking his head left and right, mouthing the words cant breathe . He was reaching up for the ET tube and could not be consoled. Or saturation remained at 100%. Increased sedation and stayed with patient till he became calm.
[2023-10-15 21:07] LABS: Glucose Point of Care 152 mg/dL (70-110)
[2023-10-15] MEDS: sodium chloride 0.9% 1,000 ML 30 ML IV (21:07)
[2023-10-15] MEDS: dexmedeTOMIDine 0.9 % NaCL 400 MCG/100 ML PREMIX 23.75 MCG IV (23:09)
[2023-10-16] VITALS (105 sets, daily range): BP systolic 113–146; BP diastolic 48–77; PULSE 57–109; RESP 16–23; TEMP 36.6–37.1; O2SAT 96–100; BMI 29.9
--- NOTE | 2023-10-16 00:30 | PC.NURSE ---
Patient became anxious and agitated while we were turning to his side. Reaching for ETT and shaking his head left & right. Attempt to calm patient. Restraints re-secured.
[2023-10-16] MEDS: piperacillin-tazobactam 3.375 GM in sodium chloride 0.9% (plus) 50 ML IV ×3 (00:59→17:00)
[2023-10-16] MEDS: ipratropium-albuterol 3 mL Neb INHALATION ×4 (03:22→20:56)
[2023-10-16] MEDS: dexmedeTOMIDine 0.9 % NaCL 400 MCG/100 ML PREMIX 23.75 MCG IV (03:29)
[2023-10-16] MEDS: fentaNYL 1,000 MCG/100 ML BAG 10 MCG IV (03:31)
[2023-10-16 05:41] LABS: Basophils % 0.1 %; Hematocrit 28.8 % (37-53); Lymphocytes % 6.2 %; Mean Corpuscular HGB Conc 30.9 g/dL (30-55); Mean Corpuscular Hemoglobin 27.5 pg (27-33); Mean Corpuscular Volume 88.9 fl (82-101); Monocytes # 0.9 10^3/uL (0.2-0.9); Monocytes % 5.7 %; Neutrophils # 14.03 10^3/uL (1.8-7.7); Neutrophils % 87.1 %; Nucleated Red Blood Cells % 0.2 %; Platelet Count 215 10^3/cmm (157-399); Red Blood Count 3.24 10^6/uL (3.85-5.65); Red Cell Distribution Width 15.3 % (12.1-15.1); White Blood Count 16.08 10^3/uL (3.29-11.43)
[2023-10-16 05:56] LABS: Estmated Average Glucose 108; Hemoglobin A1C 5.4 % (4.0-6.0)
[2023-10-16 06:02] LABS: Alanine Aminotransferase 25 U/L (0-41); Albumin Level 3.3 g/dL (3.5-5.2); Alkaline Phosphatase 87 U/L (40-130); Aspartate Amino Transferase 20 U/L (0-40); Blood Urea Nitrogen 41 mg/dL (8-23); Calcium 7.8 mg/dL (8.5-10.5); Carbon Dioxide 24 mmol/L (22-29); Chloride 109 mmol/L (98-107); Chol HDL Ratio 2.98 mg/dL (1.0-5.00); Cholesterol 155 mg/dL (0-200); Creatinine Clr Calc Pharmacy 53.3098; Globulin 2.7 g/dL (1.3-4.6); Glucose 120 mg/dL (65-115); HDL Cholesterol 52 mg/dL (60-100); LDL Cholesterol Calculated 61 mg/dL (50-129); Magnesium 2.3 mg/dL (1.7-2.3); Osmolality Calculated 309 mOsm/kg (285-295); Sodium 144 mmol/L (136-145); Total Bilirubin 0.3 mg/dL (0.15-1.2); Triglycerides 211 mg/dL (0-150); VLDL Cholestrol Calculation 42 mg/dL (0-30)
[2023-10-16] MEDS: sucralfate 1 gm/10 mL Oral Liq UDC PO ×3 (06:08→21:50)
[2023-10-16 06:15] LABS: Folate Level 17.8 ng/mL (4.5-32.2)
[2023-10-16 07:24] LABS: Glucose Point of Care 128 mg/dL (70-110)
[2023-10-16] MEDS: dexmedeTOMIDine 0.9 % NaCL 400 MCG/100 ML PREMIX 17.8099999999999987 MCG IV ×4 (07:33→23:52)
[2023-10-16] MEDS: finasteride 5 mg Tablet PO (08:09)
[2023-10-16] MEDS: cetirizine 10 mg Tablet PO (08:10)
[2023-10-16] MEDS: pantoprazole 40 mg SDV IVP ×2 (08:10→17:00)
[2023-10-16] MEDS: budesonide 0.5 mg/2 mL Neb INHALATION ×2 (08:23→20:56)
[2023-10-16] MEDS: methylPREDNISolone sod succ 125 mg/2 mL INJ 60 MG IVP (10:12)
[2023-10-16] MEDS: midazolam 1 mg/mL INJ 2 mL 5 MG IVP (11:02)
[2023-10-16] MEDS: sodium chloride 0.9% 500 ML IV (11:47)
--- NOTE | 2023-10-16 11:58 | PM.MISC ---
Miscellaneous Note Purpose of Documentation: Update on patient care. Note: EGD done today, patient had a very significant vasovagal event during endoscopy that resolved after desufflation of the stomach and removal of the endoscope. There was no evidence of active bleeding, there is irritation in the stomach in the areas where the NG tube was located indicating that this was the most likely cause of bleeding. No biopsies were taken. No need for repeat endoscopy. Patient can continue all other care by primary team. If NG tube continues to be indicated please have the NG tube with low intermittent wall suction to prevent further trauma to the mucosa.
--- NOTE | 2023-10-16 12:14 | XRR_ITS ---
PROCEDURE INFORMATION: Exam: XR Chest Exam date and time: 10/16/2023 11:30 AM Age: 78 years old Clinical indication: Device placement; Ng tube; Additional info: Ng tube placement TECHNIQUE: Imaging protocol: Radiologic exam of the chest. Views: 1 view. COMPARISON: CR (CHEST, ) 10/15/2023 7:52 AM FINDINGS: Enteric tube tip in the proximal stomach with side port at the level the diaphragm, recommend advancing. XR/XR chest 1V portable [id number] IMPRESSION: As above.
[2023-10-16 12:18] LABS: Vancomycin Trough 15.5 ug/mL (10-15)
[2023-10-16 12:39] LABS: Glucose Point of Care 146 mg/dL (70-110)
[2023-10-16] MEDS: insulin lispro 100 unit/1 mL SUBCUT ×3 (12:41→21:50)
[2023-10-16] MEDS: heparin 5,000 unit/mL INJ 1 mL 5000 UNIT SUBCUT (12:41)
--- NOTE | 2023-10-16 13:19 | XRR_ITS ---
PROCEDURE INFORMATION: Exam: XR Chest Exam date and time: 10/16/2023 12:58 PM Age: 78 years old Clinical indication: Device placement; Patient HX: Ng tube confirmation TECHNIQUE: Imaging protocol: Radiologic exam of the chest. Views: 1 view. COMPARISON: CR (CHEST, ) 10/16/2023 11:30 AM FINDINGS: Enteric tube advanced now with side port below the diaphragm in the proximal stomach. XR/XR chest 1V portable [id number] IMPRESSION: As above.
[2023-10-16] MEDS: fentaNYL 1,000 MCG/100 ML BAG 7.5 MCG IV (14:25)
[2023-10-16] MEDS: sennosides-docusate Tablet 1 TAB PO (14:28)
[2023-10-16] MEDS: docusate sodium 100 mg Capsule PO (14:28)
--- NOTE | 2023-10-16 15:12 | P.PN_ITS ---
Subjective 2 Subjective: No acute events overnight. Patient has remained intubated. Currently on fentanyl and Precedex. Did require mild propofol overnight. Has remained hemodynamically stable and afebrile. Underwent endoscopy today. Found to have minimal gastric irritation. Did have episode of vasovagal during the procedure when he dropped his heart rate and blood pressures but were self corrected during the EGD scope. Otherwise patient does not require Levophed. Medications: Reviewed: Yes Vitals/I&O/Wt Last Vital Signs Temp 97.9 F 10/16/23 08:30 Pulse 89 10/16/23 13:40 Resp 16 10/16/23 13:40 BP 122/61 10/16/23 12:15 Pulse Ox 97 10/16/23 13:40 O2 Del Method Mechanical Ventilation 10/16/23 13:40 O2 Flow Rate 5 10/13/23 06:46 FiO2 40 10/16/23 13:40 10/16/23 10/16/23 10/16/23 06:59 14:59 22:59 Intake Total 353.584 / 7663.979 5072.673 / Output Total 850 / 1650 Balance -496.416 / -212.016 0925.673 / Weight last 48 hrs Weight 94.801 kg Weight 95 kg Physical Exam 2 Narrative: General: Awake, sedated, following commands, intubated, OG tube present HEENT: PERRLA, pupils bilaterally equal and reactive Chest: Bilateral bronchial breath sounds all over lung patel with good equal air entry all over lung patel, diffuse rhonchi CVS: S1-S2 regular, no murmurs, no tachycardia, no gallops, no rubs Abdomen: Soft, nontender, no organomegaly, bowel sounds present Neuro: No focal deficits, no facial deformity, moving all limbs Urinary Catheter Management: Rothman: Cath Placed During This Visit: yes Reason for Continuing Indwelling Catheter: Accurate Measurement of Urinary Output in Critically Ill Patients Urinary Catheter Date of Insertion: 10/13/23 Urinary Catheter Time of Insertion: 06:55 Data 10/16/23 05:15 10/16/23 05:15 Micro: Microbiology 10/13/23 08:20 Gram Stain - Final Sputum - Endotracheal Tube Aspirate Sputum Culture - Final A&P Assessment and plan (1) Acute respiratory failure with hypoxia and hypercapnia: In setting of COPD exacerbation, community-acquired pneumonia secondary to coronavirus infection not COVID-19. EGD done today. Plan for extubation within next 24 hours. Plan for weaning trial in a.m. Continue sedation with Precedex and fentanyl for now. Continue sedation in AM. Plan to transition over to pressure support prior to extubation. (2) Chronic obstructive pulmonary disease with (acute) exacerbation: Wean Solu-Medrol to 30 mg IV daily. Aggressive pulmonary toilet with sedation vacation. Pulmicort twice daily, DuoNebs every 6 hours. (3) Pneumonia: Concern of pneumonia with bilateral infiltrates MRSA swab negative, sputum culture appreciated. Blood cultures so far negative. Continue with IV Zosyn. Will continue IV antibiotics for overall 7-day course. Plan for possible extubation in AM. If worsens will plan for CT chest. (4) NSTEMI (non-ST elevated myocardial infarction): Troponins elevated on admission. History of peripheral arterial disease. Echocardiogram done showed EF of 55%, mild hypokinesia of apical septum, mild LVH, moderate hypokinesia of mid and apical anteroseptal segment, grade 2 diastolic dysfunction with a dilated IVC. PASP of 69 mmHg with moderate pulmonary hypertension, possible prolapse of posterior mitral leaflet with severe eccentric MR, mild AI, mild TR. Given recent GI bleed most likely from gastric trauma from OG tube. Hold off on aspirin and Plavix for next 24 hours. Start aspirin and Plavix in AM. Patient has already received heparin for overall 48 hours. Hold off on any further heparin. Change heparin to 5000 every 12 hourly for DVT prophylaxis. Once patient is more stable he will benefit with further ACS workup with Lexiscan stress test versus angiogram. Appreciate A1c, lipid panel. Continue with home dose of statin. (5) Upper GI bleeding: Most likely in setting of being on intermittent suction. Appreciate surgical recommendations and EGD. Continue with Protonix 40 mg twice daily and Carafate before meals and at bedtime. Aspirin and Plavix as above. (6) Hypotension: Goal blood pressure less than 140/90 mmHg with mean over 65. Currently blood pressure stable. Will use Levophed if needed. Hold off on beta-dixon for now. (7) HAZEL (acute kidney injury): Patient with acute kidney injury superimposed on chronic kidney disease. Creatinine today trending down to normal. Baseline creatinine around 1.3-1.5. Continue with normal saline at 50 cc/h. Medication reconciliation done for nephrotoxic drugs. Monitor BMP daily for now. Appreciate renal ultrasound. (8) Anemia: In setting of upper GI bleed. Target hemoglobin more than 8. Hemoglobin so far stable. (9) Elevated brain natriuretic peptide (BNP) level: Echocardiogram demonstrates ejection fraction 56%, some wall motion abnormalities, grade 2/4 diastolic dysfunction. Severe mitral regurgitation is noted. Moderate pulmonary hypertension. From previous studies there was some worsening of mitral regurgitation (10) Acute encephalopathy: Patient with acute encephalopathy. This could be secondary to sepsis, elevated CO2. CT head negative He is able to follow direction when sedation is lessened (11) Sepsis: Patient with concerns for sepsis with focus of infection pneumonia, hypotension, elevated white blood cell count, organ dysfunction of encephalopathy and renal dysfunction. Lactic acid was elevated on first check. Not a candidate for fluid resuscitation secondary to probable cardiac dysfunction with elevated BNP, evidence of extra peripheral fluid. Appears to be improving Plan Underlying anxiety. Peripheral vascular disease with history of foot ulcers. Treat pressure off areas History of hyperglycemia/diabetes: Check A1c. Sliding scale insulin Other medical problems as outlined in past medical history Discussed in detail with patient's family at bedside. Full code currently SCDs for DVT prophylaxis. Heparin 5000 every 12 hourly for DVT prophylaxis. Protonix twice daily will be sufficient for PUD prophylaxis. Plan for the day: Post EGD. Hemoglobin stable. Keep sedated with fentanyl and Precedex for now. Weaning trial in a.m. Continue with current IV antibiotics. Wean Solu-Medrol to 30 mg IV daily. Start aspirin and Plavix in AM. Start heparin at DVT prophylaxis dose. Patient will benefit from ACS workup with possible Lexiscan stress test once medically stable. Attestations 2 Medical Necessity Statement*: Requires further hospitalization for management of acute hypoxic and respiratory failure in setting of coronavirus infection not COVID-19, pneumonia, non-ST elevation NE as patient remains intubated, upper GI bleed Critical Care Time: The high probability of a clinically significant, sudden or life threatening deterioration of the patient's [pulmonary, cardiac, GI] system(s) required my full and direct attention, intervention and personal management. The critical care time is as shown. This time is in addition to time spent performing any reported procedures but includes the following: [x] Data and vital sign review and interpretation [x] Patient assessment, examination and intervention [x] Documentation [x] Medication orders and management Critical Care Time (min): 90 Coding Level of Care Code Critical Care >/= 30 minutes Critical care time (in minutes): 90 The high probability of a clinically significant, sudden or life threatening deterioration, as referenced in this documentation, required my full and direct attention, intervention and personal management. The critical care time shown is in addition to time spent performing any reported separately billable procedures and includes the following: [x] Data and vital sign review and interpretation [x ] Patient assessment, examination and intervention [x] Medication orders and management [x] Patient/Family updates as able [x] Care Coordination and Documentation. Other Coding Information This patient has a high probability of clinically significant, sudden or life threatening deterioration of the patient's (neurological/pulmonary/cardiac/renal/ID/endocrine) systems required my full, direct attention, the highest level of physician preparedness for urgent intervention and personal management. I managed/supervised life or organ supporting interventions that required frequent physician assessment. I devoted my full attention in the ICU to the direct care of this patient for the period of time indicated above. Time I spent with family or surrogate(s) is included only if the patient was incapable of providing necessary information or participating in decision making. This time includes the following services provided: Telemetry review Mechanical Ventilation Hemodynamic interpretation, assessment and management Review and interpretation of CXR Review and interpretation of lab values Review and interpretation of microbiologic data and culture results Review of medications and administration Review and interpretation of Nutrition requirements and management Discussion of management with other consultants and services Clinical update to family members Diagnoses Acute respiratory failure with hypoxia and hypercapnia J96.01; J96.02 Chronic obstructive pulmonary disease with (acute) exacerbation J44.1 Pneumonia J18.9 NSTEMI (non-ST elevated myocardial infarction) I21.4 Upper GI bleeding K92.2 Hypotension I95.9 HAZEL (acute kidney injury) N17.9 Anemia D64.9 Elevated brain natriuretic peptide (BNP) level R79.89 Acute encephalopathy G93.40 Sepsis A41.9
[2023-10-16] MEDS: atorvastatin 40 mg Tablet PO (17:00)
[2023-10-16 17:38] LABS: Glucose Point of Care 169 mg/dL (70-110)
[2023-10-16] MEDS: fentaNYL 1,000 MCG/100 ML BAG 15 MCG IV (21:50)
[2023-10-16] MEDS: sodium chloride 0.9% 1,000 ML 50 ML IV (21:52)
[2023-10-17] VITALS (98 sets, daily range): BP systolic 87–149; BP diastolic 43–88; PULSE 70–95; RESP 12–34; TEMP 36.4–36.9; O2SAT 88–100
[2023-10-17] MEDS: heparin 5,000 unit/mL INJ 1 mL 5000 UNIT SUBCUT ×2 (00:24→12:45)
[2023-10-17] MEDS: piperacillin-tazobactam 3.375 GM in sodium chloride 0.9% (plus) 50 ML IV ×3 (00:24→17:46)
[2023-10-17] MEDS: ipratropium-albuterol 3 mL Neb INHALATION ×4 (02:17→20:04)
[2023-10-17] MEDS: fentaNYL 1,000 MCG/100 ML BAG 15 MCG IV (03:37)
--- NOTE | 2023-10-17 04:00 | XRR_ITS ---
PROCEDURE INFORMATION: Exam: XR Chest Exam date and time: 10/17/2023 3:20 AM Age: 78 years old Clinical indication: Condition or disease; Lung condition and disease; Respiratory failure; Status not specified; Prior surgery; Surgery date: 6+ months; Surgery type: Cabg. Pacer. Gb. Patient HX: Resp failure. Intubated with central line and og in place. ; Additional info: Intubation TECHNIQUE: Imaging protocol: Radiologic exam of the chest. Views: 1 view. COMPARISON: CR (CHEST, ) 10/16/2023 12:58 PM FINDINGS: Tubes, catheters and devices: Endotracheal tube, feeding tube, central venous catheter, and pacemaker. The endotracheal tube terminates 4.6 cm above the angelo. Lungs: COPD, interstitial disease, and asymmetric basilar airspace disease. Pleural spaces: Left pleural effusion with obscuration of the left hemidiaphragm. Heart/Mediastinum: No cardiomegaly. Bones/joints: Median sternotomy. Osteopenia and degenerative change. XR/XR chest 1V portable [id number] IMPRESSION: 1. COPD, interstitial disease, and asymmetric basilar airspace disease. 2. Left pleural effusion with obscuration of the left hemidiaphragm. 3. Additional findings as described above.
[2023-10-17 04:30] LABS: ABG PCO2 45.5 mmHg (35-45); ABG PH Result 7.37 (7.35-7.45); Alveolar-Arterial Oxygen Gradi 17.9 mmHg (5-10); Arterial Blood Gas Hematocrit 30.6 % (42-52); Base Excess ABG 0.4 mmol/L (-2.0-2.0); Blood Gas Allen Test Pos; Blood Gas Sample Site Radial, right; Blood Gas Sample Type Arterial; Carboxyhemoglobin 1.3 %THgb (0.4-20.1); HCO3 ABG 26.1 mmol/L (22-26); HGB O2 Sat 95.8 % (95-100); Ionized Calcium Level - ABG 1.2 mmol/L (1.1-1.4); Methemoglobin 0.5 % (0.4-1.5); Oxygen Device VENT; Oxygen Saturation ABG 97.6; PO2 ABG 86.7 mmHg (80.0-100.0); PO2 FiO2 Ratio Arterial Blood 0; Potassium Level - ABG 4.1 mmol/L (3.5-5.0)
[2023-10-17] MEDS: dexmedeTOMIDine 0.9 % NaCL 400 MCG/100 ML PREMIX 17.8099999999999987 MCG IV (05:13)
[2023-10-17 05:51] LABS: Basophils % 0.1 %; Eosinophils % 0.1 %; Hematocrit 27.4 % (37-53); Lymphocytes # 1.1 10^3/uL (0.8-4.8); Lymphocytes % 8.9 %; Mean Corpuscular HGB Conc 30.3 g/dL (30-55); Mean Corpuscular Hemoglobin 26.9 pg (27-33); Mean Corpuscular Volume 88.7 fl (82-101); Mean Platelet Volume 10.1 fL (7.4-10.4); Monocytes # 0.7 10^3/uL (0.2-0.9); Monocytes % 5.5 %; Neutrophils # 10.68 10^3/uL (1.8-7.7); Neutrophils % 84.6 %; Nucleated Red Blood Cells % 0.2 %; Platelet Count 182 10^3/cmm (157-399); Red Blood Count 3.09 10^6/uL (3.85-5.65); Red Cell Distribution Width 15.5 % (12.1-15.1); White Blood Count 12.61 10^3/uL (3.29-11.43)
[2023-10-17 06:10] LABS: Magnesium 2.3 mg/dL (1.7-2.3)
[2023-10-17 06:12] LABS: Alanine Aminotransferase 22 U/L (0-41); Albumin Level 3.2 g/dL (3.5-5.2); Alkaline Phosphatase 91 U/L (40-130); Anion Gap 13.2 (5-19); Aspartate Amino Transferase 19 U/L (0-40); Blood Urea Nitrogen 36 mg/dL (8-23); Calcium 8.4 mg/dL (8.5-10.5); Carbon Dioxide 25 mmol/L (22-29); Chloride 115 mmol/L (98-107); Creatinine Clr Calc Pharmacy 57.6961; Globulin 2.6 g/dL (1.3-4.6); Glucose 103 mg/dL (65-115); Osmolality Calculated 317 mOsm/kg (285-295); Potassium 4.2 mmol/L (3.5-5.1); Sodium 149 mmol/L (136-145); Total Bilirubin 0.3 mg/dL (0.15-1.2); Total Protein 5.8 g/dL (6.6-8.7)
[2023-10-17] MEDS: sucralfate 1 gm/10 mL Oral Liq UDC PO ×4 (06:39→21:07)
[2023-10-17] MEDS: budesonide 0.5 mg/2 mL Neb INHALATION ×2 (07:40→20:04)
[2023-10-17 08:41] LABS: Glucose Point of Care 107 mg/dL (70-110)
[2023-10-17] MEDS: sennosides-docusate Tablet 1 TAB PO (08:50)
[2023-10-17] MEDS: aspirin 81 mg EC Tablet PO (08:50)
[2023-10-17] MEDS: cetirizine 10 mg Tablet PO (08:51)
[2023-10-17] MEDS: clopidogrel 75 mg Tablet PO (08:51)
[2023-10-17] MEDS: finasteride 5 mg Tablet PO (08:51)
[2023-10-17] MEDS: methylPREDNISolone sod succ 125 mg/2 mL INJ 30 MG IVP (08:51)
[2023-10-17] MEDS: pantoprazole 40 mg SDV IVP ×2 (08:51→17:45)
[2023-10-17] MEDS: LORazepam 2 mg/mL INJ 10 mL MDV 0.5 MG IVP ×2 (10:06→22:32)
[2023-10-17 11:31] LABS: Glucose Point of Care 148 mg/dL (70-110)
--- NOTE | 2023-10-17 11:34 | PC.SOCIAL ---
IMM Not Updated Pg. 2of IMM not updated at this time. Patient remains intubated and not anticipated to d/c within 48hours.
[2023-10-17] MEDS: dexmedeTOMIDine 0.9 % NaCL 400 MCG/100 ML PREMIX 16.629999999999999 MCG IV ×2 (12:23→18:34)
[2023-10-17] MEDS: sodium chloride 0.9% 1,000 ML 50 ML IV (17:30)
[2023-10-17] MEDS: atorvastatin 40 mg Tablet PO (17:45)
[2023-10-17 18:11] LABS: Glucose Point of Care 156 mg/dL (70-110)
--- NOTE | 2023-10-17 18:27 | PC.NURSE ---
Fentanyl Waste Wasted 63mls of Fentanyl with RAMÍREZ Vaz.
--- NOTE | 2023-10-17 19:25 | PC.NURSE ---
Central Line: [place] not flushing.
[2023-10-17 20:31] LABS: Glucose Point of Care 146 mg/dL (70-110)
[2023-10-17 20:33] LABS: Glucose Point of Care 135 mg/dL (70-110)
--- NOTE | 2023-10-17 23:45 | P.PN_ITS ---
Subjective 2 Subjective: He is awake and alert, anxious. Accompanied by family. Vitals/I&O/Wt Last Vital Signs Temp 97.5 F L 10/17/23 19:45 Pulse 79 10/17/23 22:30 Resp 21 H 10/17/23 22:30 BP 126/48 10/17/23 22:30 Pulse Ox 96 10/17/23 22:30 O2 Del Method Nasal Cannula 10/17/23 22:30 O2 Flow Rate 6 10/17/23 22:30 FiO2 35 10/17/23 12:50 10/17/23 10/17/23 10/18/23 14:59 22:59 06:59 Intake Total 150 / 150 1347.133 / 1497.133 42.129 / 1539.262 Output Total 650 / 650 Balance 150 / 150 697.133 / 847.133 42.129 / 889.262 Weight last 48 hrs Weight 94.5 kg Weight 94.801 kg Physical Exam 2 Const: COMMON NORMALS: alert GENERAL APPEARANCE: cooperative and patient mechanically ventilated ORIENTATION/CONSCIOUSNESS: Yes awake HENMT: COMMON NORMALS: oropharynx normal Neck/C-Spine: COMMON NORMALS: no JVD Resp: AUSCULTATION: diminished lung sounds Cardio: COMMON NORMALS: no JVD, regular rhythm, S1 normal heart sound present, S2 normal heart sound present and No murmurs present (Cardio) RHYTHM: regular rhythm HEART SOUNDS: S1 normal heart sound present and S2 normal heart sound present GI: COMMON NORMALS: Normal to inspection, nondistended, normoactive bowel sounds present, Soft to palpation and non-tender PALPATION: Yes Soft to palpation Extremity: COMMON NORMALS: no joint enlargement and no pedal edema Neuro: COMMON NORMALS: moves all extremities SENSORIUM/ORIENTATION: Yes alert Skin: COMMON NORMALS: no rashes or lesions noted GENERAL SKIN EXAM: no rashes or lesions noted Urinary Catheter Management: Rothman: Cath Placed During This Visit: yes Reason for Continuing Indwelling Catheter: Accurate Measurement of Urinary Output in Critically Ill Patients Urinary Catheter Date of Insertion: 10/13/23 Urinary Catheter Time of Insertion: 06:55 Data 10/17/23 05:14 10/17/23 05:14 A&P Assessment and plan (1) Acute respiratory failure with hypoxia and hypercapnia: Continued on Precedex this morning due to anxiety, added low-dose IV Ativan as needed for breakthrough. Reviewed vitals, CBC, ABG, CMP, magnesium. Breathing trial this morning, discussed with RT, nursing staff, did well with breathing trial, RSBI assessed and in the 20s, decision to extubate to nasal cannula. In setting of COPD exacerbation, community-acquired pneumonia secondary to coronavirus infection not COVID-19. EGD done today. Continue sedation with Precedex for now. Stop fentanyl.Stop Versed and propofol. Stop IV fluid. (2) Chronic obstructive pulmonary disease with (acute) exacerbation: Continue Solu-Medrol to 30 mg IV daily. Zosyn. Aggressive pulmonary toilet with sedation vacation. Pulmicort twice daily, DuoNebs every 6 hours. (3) Pneumonia: Concern of pneumonia with bilateral infiltrates MRSA swab negative, sputum culture appreciated. Blood cultures so far negative. Continue with IV Zosyn. Will continue IV antibiotics for overall 7-day course. Plan for possible extubation in AM. If worsens will plan for CT chest. (4) NSTEMI (non-ST elevated myocardial infarction): Troponins elevated on admission. History of peripheral arterial disease. Echocardiogram done showed EF of 55%, mild hypokinesia of apical septum, mild LVH, moderate hypokinesia of mid and apical anteroseptal segment, grade 2 diastolic dysfunction with a dilated IVC. PASP of 69 mmHg with moderate pulmonary hypertension, possible prolapse of posterior mitral leaflet with severe eccentric MR, mild AI, mild TR. Given recent GI bleed most likely from gastric trauma from OG tube. Hold off on aspirin and Plavix for next 24 hours. Start aspirin and Plavix in AM. Patient has already received heparin for overall 48 hours. Hold off on any further heparin. Change heparin to 5000 every 12 hourly for DVT prophylaxis. Once patient is more stable he will benefit with further ACS workup with Lexiscan stress test versus angiogram. Appreciate A1c, lipid panel. Continue with home dose of statin. (5) Upper GI bleeding: Reviewed CBC, follow-up CBC requested. Most likely in setting of being on intermittent suction. Appreciate surgical recommendations and EGD. Continue with Protonix 40 mg twice daily and Carafate before meals and at bedtime. Aspirin and Plavix as above. (6) Hypotension: Goal blood pressure less than 140/90 mmHg with mean over 65. Currently blood pressure stable. Will use Levophed if needed. Hold off on beta-dixon for now. (7) HAZEL (acute kidney injury): Reviewed kidney function, electrolytes, acid-base balance, renal function improving. Creatinine is down to 1.2. Patient with acute kidney injury superimposed on chronic kidney disease. Creatinine today trending down to normal. Baseline creatinine around 1.3-1.5. Stop normal saline at 50 cc/h. Medication reconciliation done for nephrotoxic drugs. Monitor BMP daily for now. Appreciate renal ultrasound. (8) Anemia: In setting of upper GI bleed. Target hemoglobin more than 8. Hemoglobin so far stable. (9) Elevated brain natriuretic peptide (BNP) level: Echocardiogram demonstrates ejection fraction 56%, some wall motion abnormalities, grade 2/4 diastolic dysfunction. Severe mitral regurgitation is noted. Moderate pulmonary hypertension. From previous studies there was some worsening of mitral regurgitation (10) Acute encephalopathy: Patient with acute encephalopathy. This could be secondary to sepsis, elevated CO2. CT head negative He is able to follow direction when sedation is lessened (11) Sepsis: Patient with concerns for sepsis with focus of infection pneumonia, hypotension, elevated white blood cell count, organ dysfunction of encephalopathy and renal dysfunction. Lactic acid was elevated on first check. Not a candidate for fluid resuscitation secondary to probable cardiac dysfunction with elevated BNP, evidence of extra peripheral fluid. Appears to be improving Plan Underlying anxiety. Peripheral vascular disease with history of foot ulcers. Treat pressure off areas History of hyperglycemia/diabetes: Check A1c. Sliding scale insulin Other medical problems as outlined in past medical history Discussed in detail with patient's family at bedside. Full code currently SCDs for DVT prophylaxis. Heparin 5000 every 12 hourly for DVT prophylaxis. Protonix twice daily will be sufficient for PUD prophylaxis. Attestations 2 Medical Necessity Statement*: Continue admission for assessment management of respiratory failure, pneumonia, COPD exacerbation. Coding Level of Care Code Critical Care >/= 30 minutes Critical care time (in minutes): 40 The high probability of a clinically significant, sudden or life threatening deterioration, as referenced in this documentation, required my full and direct attention, intervention and personal management. The critical care time shown is in addition to time spent performing any reported separately billable procedures and includes the following: [x] Data and vital sign review and interpretation [x ] Patient assessment, examination and intervention [x] Medication orders and management [x] Patient/Family updates as able [x] Care Coordination and Documentation. Diagnoses Acute respiratory failure with hypoxia and hypercapnia J96.01; J96.02 Chronic obstructive pulmonary disease with (acute) exacerbation J44.1 Pneumonia J18.9 NSTEMI (non-ST elevated myocardial infarction) I21.4 Upper GI bleeding K92.2 Hypotension I95.9 HAZEL (acute kidney injury) N17.9 Anemia D64.9 Elevated brain natriuretic peptide (BNP) level R79.89 Acute encephalopathy G93.40 Sepsis A41.9
[2023-10-18] VITALS (64 sets, daily range): BP systolic 105–172; BP diastolic 49–87; PULSE 70–100; RESP 16–32; TEMP 36.2–36.9; O2SAT 84–100
[2023-10-18] MEDS: heparin 5,000 unit/mL INJ 1 mL 5000 UNIT SUBCUT ×2 (00:41→11:32)
[2023-10-18] MEDS: piperacillin-tazobactam 3.375 GM in sodium chloride 0.9% (plus) 50 ML IV ×2 (00:45→08:59)
[2023-10-18] MEDS: dexmedeTOMIDine 0.9 % NaCL 400 MCG/100 ML PREMIX 11.8800000000000008 MCG IV (00:47)
[2023-10-18] MEDS: ipratropium-albuterol 3 mL Neb INHALATION ×4 (02:29→19:32)
[2023-10-18] MEDS: LORazepam 2 mg/mL INJ 10 mL MDV 0.5 MG IVP ×2 (02:32→08:55)
--- NOTE | 2023-10-18 02:37 | PC.NURSE ---
Addendum entered by Kathryn Weaver RN 10/18/23 04:35: New order for BiPAP @0432. Original Note: Increased SOB: Notified Dr. Carrillo @7030 of need to increase oxygen, SpO2 85%, RT at bedside to start breathing tx, increased SOB and work of breathing. New order for Chest x-ray. Radiology called @7712.
--- NOTE | 2023-10-18 04:00 | XRR_ITS ---
PROCEDURE INFORMATION: Exam: XR Chest Exam date and time: 10/18/2023 1:42 AM Age: 78 years old Clinical indication: Shortness of breath; Prior surgery; Surgery date: 6+ months; Surgery type: Cabg. Pacer. Gb. Patient HX: Worsening SOB since extubation at 1330 10/17/2023. ; Additional info: Intubation TECHNIQUE: Imaging protocol: Radiologic exam of the chest. Views: 1 view. COMPARISON: CR XR chest 1V portable [id number] 10/17/2023 3:20 AM FINDINGS: Tubes, catheters and devices: Left chest wall pacemaker with intact leads in an unchanged position. Enteric tube traverses midline, catheter tip and side port not within field of view. Right central venous catheter with tip at the mid to distal superior vena cava. Lungs: Diffuse increase in interstitial markings, most prominent at the bilateral bases. Pleural spaces: Blunting of the left costophrenic angle. Heart/Mediastinum: Stable. Bones/joints: Patient is status post sternotomy. XR/XR chest 1V portable [id number] IMPRESSION: 1. Increasing infiltration of the bilateral lung bases, nonspecific, however, can be seen in volume overload/pulmonary edema, multifocal pneumonia, aspiration/atelectasis. 2. Small left pleural effusion is present. Additional findings as above.
[2023-10-18 04:36] LABS: ABG PCO2 56.1 mmHg (35-45); ABG PH Result 7.27 (7.35-7.45); Alveolar-Arterial Oxygen Gradi 2.6 mmHg (5-10); Arterial Blood Gas Hematocrit 28.1 % (42-52); Base Excess ABG -1.6 mmol/L (-2.0-2.0); Blood Gas Allen Test Pos; Blood Gas Operator Identificat JB; Blood Gas Sample Site Radial, right; Blood Gas Sample Type Arterial; Carboxyhemoglobin 1.7 %THgb (0.4-20.1); HCO3 ABG 25.7 mmol/L (22-26); HGB O2 Sat 86.1 % (95-100); Ionized Calcium Level - ABG 1.3 mmol/L (1.1-1.4); Methemoglobin 0.8 % (0.4-1.5); Oxygen Device NC; Oxygen Saturation ABG 88.3; PO2 ABG 59.4 mmHg (80.0-100.0); Potassium Level - ABG 4.3 mmol/L (3.5-5.0); Total Hemoglobin 9.2 g/dL (14-18)
[2023-10-18 05:09] LABS: Basophils % 0.1 %; Eosinophils % 0.1 %; Hematocrit 28.2 % (37-53); Mean Corpuscular HGB Conc 29.8 g/dL (30-55); Mean Corpuscular Hemoglobin 26.8 pg (27-33); Mean Corpuscular Volume 90.1 fl (82-101); Mean Platelet Volume 9.9 fL (7.4-10.4); Monocytes # 0.9 10^3/uL (0.2-0.9); Monocytes % 5.4 %; Neutrophils # 14.38 10^3/uL (1.8-7.7); Neutrophils % 87.6 %; Nucleated Red Blood Cells % 0.2 %; Platelet Count 188 10^3/cmm (157-399); Red Blood Count 3.13 10^6/uL (3.85-5.65); Red Cell Distribution Width 15.7 % (12.1-15.1); White Blood Count 16.39 10^3/uL (3.29-11.43)
[2023-10-18 05:35] LABS: Alanine Aminotransferase 22 U/L (0-41); Albumin Level 3.2 g/dL (3.5-5.2); Alkaline Phosphatase 90 U/L (40-130); Anion Gap 14.5 (5-19); Aspartate Amino Transferase 19 U/L (0-40); Blood Urea Nitrogen 41 mg/dL (8-23); Calcium 8.3 mg/dL (8.5-10.5); Carbon Dioxide 25 mmol/L (22-29); Chloride 115 mmol/L (98-107); Creatinine Clr Calc Pharmacy 57.6111; Globulin 3.1 g/dL (1.3-4.6); Glucose 107 mg/dL (65-115); Osmolality Calculated 321 mOsm/kg (285-295); Potassium 4.5 mmol/L (3.5-5.1); Sodium 150 mmol/L (136-145); Total Bilirubin 0.5 mg/dL (0.15-1.2); Total Protein 6.3 g/dL (6.6-8.7)
[2023-10-18 05:41] LABS: Magnesium 2.3 mg/dL (1.7-2.3)
[2023-10-18] MEDS: sucralfate 1 gm/10 mL Oral Liq UDC PO ×4 (06:17→20:08)
[2023-10-18] MEDS: finasteride 5 mg Tablet PO (08:58)
[2023-10-18] MEDS: clopidogrel 75 mg Tablet PO (08:58)
[2023-10-18] MEDS: cetirizine 10 mg Tablet PO (08:58)
[2023-10-18] MEDS: pantoprazole 40 mg SDV IVP ×2 (08:58→17:50)
[2023-10-18] MEDS: aspirin 81 mg EC Tablet PO (08:58)
[2023-10-18] MEDS: sennosides-docusate Tablet 1 TAB PO (08:58)
[2023-10-18] MEDS: methylPREDNISolone sod succ 125 mg/2 mL INJ 30 MG IVP (08:59)
[2023-10-18 09:32] LABS: Glucose Point of Care 109 mg/dL (70-110)
[2023-10-18 11:43] LABS: Glucose Point of Care 112 mg/dL (70-110)
--- NOTE | 2023-10-18 12:29 | PC.NURSE ---
Pt complaining about catheter hurting. There was a slight amount fo urine flowing out of tube. Flushes with 10mlof NS.Urine flow in cath increased (beyond the 10 ml).
[2023-10-18] MEDS: budesonide 0.5 mg/2 mL Neb INHALATION ×2 (13:53→19:32)
[2023-10-18] MEDS: piperacillin-tazobactam 3.375 GM in dextrose 5% (plus) 50 ML IV (17:49)
[2023-10-18] MEDS: atorvastatin 40 mg Tablet PO (17:50)
[2023-10-18 18:08] LABS: Glucose Point of Care 129 mg/dL (70-110)
--- NOTE | 2023-10-18 19:32 | P.PN_ITS ---
Subjective 2 Subjective: Denies pain or discomfort. Request to be repositioned and sat upright. Cooperates with BiPAP. Vitals/I&O/Wt Last Vital Signs Temp 97.2 F L 10/18/23 09:00 Pulse 89 10/18/23 18:00 Resp 23 H 10/18/23 18:00 BP 126/51 10/18/23 18:00 Pulse Ox 93 10/18/23 18:00 O2 Del Method BiPAP 10/18/23 13:53 O2 Flow Rate 5.5 10/18/23 04:30 FiO2 30 10/18/23 14:53 10/18/23 10/18/23 10/18/23 06:59 14:59 22:59 Intake Total 348.391 / 1845.524 170 / 170 Output Total 200 / 850 900 / 900 Balance 148.391 / 995.524 -730 / -730 Weight last 48 hrs Weight 94.5 kg Physical Exam 2 Const: COMMON NORMALS: alert GENERAL APPEARANCE: cooperative and patient mechanically ventilated ORIENTATION/CONSCIOUSNESS: Yes awake HENMT: COMMON NORMALS: oropharynx normal OTHER: BiPAP Neck/C-Spine: COMMON NORMALS: no JVD Resp: AUSCULTATION: diminished lung sounds Cardio: COMMON NORMALS: no JVD, regular rhythm, S1 normal heart sound present, S2 normal heart sound present and No murmurs present (Cardio) RHYTHM: regular rhythm HEART SOUNDS: S1 normal heart sound present and S2 normal heart sound present GI: COMMON NORMALS: Normal to inspection, nondistended, normoactive bowel sounds present, Soft to palpation and non-tender PALPATION: Yes Soft to palpation Extremity: COMMON NORMALS: no joint enlargement and no pedal edema Neuro: COMMON NORMALS: moves all extremities SENSORIUM/ORIENTATION: Yes alert Skin: COMMON NORMALS: no rashes or lesions noted GENERAL SKIN EXAM: no rashes or lesions noted Urinary Catheter Management: Rothman: Cath Placed During This Visit: yes Reason for Continuing Indwelling Catheter: Accurate Measurement of Urinary Output in Critically Ill Patients Urinary Catheter Date of Insertion: 10/13/23 Urinary Catheter Time of Insertion: 06:55 Data 10/18/23 04:47 10/18/23 04:47 Micro: Microbiology 10/13/23 06:56 Blood Culture - Final Blood NO GROWTH AFTER 5 DAYS 10/13/23 06:41 Blood Culture - Final Blood NO GROWTH AFTER 5 DAYS A&P Assessment and plan (1) Acute respiratory failure with hypoxia and hypercapnia: Reviewed vitals, CBC, ABG, CMP, chest x-ray. Had to go on BiPAP this morning with hypercapnia, respiratory acidosis. Discussed with RT. Lung sounds diminished. Discussed with him and family will increase Solu-Medrol dose and frequency for COPD with exacerbation. Continue antibiotics, noted still infiltrates with some worsening on chest x-ray. They have not noticed any aspiration. When able to come off BiPAP ask speech therapy to assess. At risk of worsening aspiratory failure, at risk of need for intubation. Hold off Lasix for now. IV fluids had been discontinued yesterday, he remains n.p.o. does not appear to be particularly fluid overloaded, is in negative balance, -300 mL. Reassess status. Recheck chemistry given hypernatremia, requiring D5W give Lasix. Continued on Precedex this morning due to anxiety, added low-dose IV Ativan as needed for breakthrough. Reviewed vitals, CBC, ABG, CMP, magnesium. Breathing trial this morning, discussed with RT, nursing staff, did well with breathing trial, RSBI assessed and in the 20s, decision to extubate to nasal cannula. In setting of COPD exacerbation, community-acquired pneumonia secondary to coronavirus infection not COVID-19. EGD done today. Continue sedation with Precedex for now. Stop fentanyl.Stop Versed and propofol. (2) Hypernatremia: Sodium up to 150, chloride up to 115. Likely secondary to sodium chloride infusions, discussed with pharmacist, switch Zosyn base to D5. Unfortunately Precedex cannot be modified. Recheck chemistry. If worsening will give D5W and then will also need to receive Lasix. (3) Chronic obstructive pulmonary disease with (acute) exacerbation: Continue Solu-Medrol to 30 mg IV daily. Zosyn. Aggressive pulmonary toilet with sedation vacation. Pulmicort twice daily, DuoNebs every 6 hours. (4) Pneumonia: Concern of pneumonia with bilateral infiltrates MRSA swab negative, sputum culture appreciated. Blood cultures so far negative. Continue with IV Zosyn. Will continue IV antibiotics for overall 7-day course. Plan for possible extubation in AM. If worsens will plan for CT chest. (5) NSTEMI (non-ST elevated myocardial infarction): Troponins elevated on admission. History of peripheral arterial disease. Echocardiogram done showed EF of 55%, mild hypokinesia of apical septum, mild LVH, moderate hypokinesia of mid and apical anteroseptal segment, grade 2 diastolic dysfunction with a dilated IVC. PASP of 69 mmHg with moderate pulmonary hypertension, possible prolapse of posterior mitral leaflet with severe eccentric MR, mild AI, mild TR. Given recent GI bleed most likely from gastric trauma from OG tube. Hold off on aspirin and Plavix for next 24 hours. Start aspirin and Plavix in AM. Patient has already received heparin for overall 48 hours. Hold off on any further heparin. Change heparin to 5000 every 12 hourly for DVT prophylaxis. Once patient is more stable he will benefit with further ACS workup with Lexiscan stress test versus angiogram. Appreciate A1c, lipid panel. Continue with home dose of statin. (6) Upper GI bleeding: Reviewed CBC, follow-up CBC requested. Most likely in setting of being on intermittent suction. Appreciate surgical recommendations and EGD. Continue with Protonix 40 mg twice daily and Carafate before meals and at bedtime. Aspirin and Plavix as above. (7) Hypotension: Goal blood pressure less than 140/90 mmHg with mean over 65. Currently blood pressure stable. Will use Levophed if needed. Hold off on beta-dixon for now. (8) HAZEL (acute kidney injury): Reviewed kidney function, electrolytes, acid-base balance, renal function improving. Creatinine is down to 1.2. Patient with acute kidney injury superimposed on chronic kidney disease. Creatinine today trending down to normal. Baseline creatinine around 1.3-1.5. Stop normal saline at 50 cc/h. Medication reconciliation done for nephrotoxic drugs. Monitor BMP daily for now. Appreciate renal ultrasound. (9) Anemia: In setting of upper GI bleed. Target hemoglobin more than 8. Hemoglobin so far stable. (10) Elevated brain natriuretic peptide (BNP) level: Echocardiogram demonstrates ejection fraction 56%, some wall motion abnormalities, grade 2/4 diastolic dysfunction. Severe mitral regurgitation is noted. Moderate pulmonary hypertension. From previous studies there was some worsening of mitral regurgitation (11) Acute encephalopathy: Patient with acute encephalopathy. This could be secondary to sepsis, elevated CO2. CT head negative He is able to follow direction when sedation is lessened (12) Sepsis: Patient with concerns for sepsis with focus of infection pneumonia, hypotension, elevated white blood cell count, organ dysfunction of encephalopathy and renal dysfunction. Lactic acid was elevated on first check. Not a candidate for fluid resuscitation secondary to probable cardiac dysfunction with elevated BNP, evidence of extra peripheral fluid. Appears to be improving Plan Underlying anxiety. Peripheral vascular disease with history of foot ulcers. Treat pressure off areas History of hyperglycemia/diabetes: Check A1c. Sliding scale insulin Other medical problems as outlined in past medical history Discussed in detail with patient's family at bedside. Full code currently SCDs for DVT prophylaxis. Heparin 5000 every 12 hourly for DVT prophylaxis. Protonix twice daily will be sufficient for PUD prophylaxis. Attestations 2 Medical Necessity Statement*: Continue admission for assessment management of respiratory failure, pneumonia, COPD exacerbation. Coding Level of Care Code Critical Care >/= 30 minutes Critical care time (in minutes): 35 The high probability of a clinically significant, sudden or life threatening deterioration, as referenced in this documentation, required my full and direct attention, intervention and personal management. The critical care time shown is in addition to time spent performing any reported separately billable procedures and includes the following: [x] Data and vital sign review and interpretation [x ] Patient assessment, examination and intervention [x] Medication orders and management [x] Patient/Family updates as able [x] Care Coordination and Documentation. Diagnoses Acute respiratory failure with hypoxia and hypercapnia J96.01; J96.02 Hypernatremia E87.0 Chronic obstructive pulmonary disease with (acute) exacerbation J44.1 Pneumonia J18.9 NSTEMI (non-ST elevated myocardial infarction) I21.4 Upper GI bleeding K92.2 Hypotension I95.9 HAZEL (acute kidney injury) N17.9 Anemia D64.9 Elevated brain natriuretic peptide (BNP) level R79.89 Acute encephalopathy G93.40 Sepsis A41.9
--- NOTE | 2023-10-18 19:40 | PC.NURSE ---
Transfer chair to bed: On arrival to shift pt was up to chair. 3 person assist to transfer back to bed. SpO2 dropped to 81%, pt recovered well on BiPAP to 92% once in bed. Pt is in good spirts and stated he is ready to work on getting his strength back.
[2023-10-18] MEDS: methylPREDNISolone sod succ 40 mg/mL INJ IVP (20:08)
[2023-10-18 20:56] LABS: Anion Gap 14.9 (5-19); Calcium 8.5 mg/dL (8.5-10.5); Carbon Dioxide 23 mmol/L (22-29); Chloride 115 mmol/L (98-107); Creatinine Clr Calc Pharmacy 57.6111; Glucose 124 mg/dL (65-115); Potassium 3.9 mmol/L (3.5-5.1); Sodium 149 mmol/L (136-145)
[2023-10-18 21:31] LABS: Blood Urea Nitrogen 50 mg/dL (8-23); Osmolality Calculated 323 mOsm/kg (285-295)
[2023-10-19] VITALS (61 sets, daily range): BP systolic 90–167; BP diastolic 38–79; PULSE 76–97; RESP 15–27; TEMP 36.2–37.1; O2SAT 81–97; BMI 29.2
[2023-10-19] MEDS: heparin 5,000 unit/mL INJ 1 mL 5000 UNIT SUBCUT ×2 (00:08→12:25)
[2023-10-19] MEDS: methylPREDNISolone sod succ 40 mg/mL INJ IVP ×4 (01:04→21:13)
[2023-10-19] MEDS: piperacillin-tazobactam 3.375 GM in dextrose 5% (plus) 50 ML IV ×3 (01:08→17:38)
[2023-10-19] MEDS: ipratropium-albuterol 3 mL Neb INHALATION ×4 (02:08→19:47)
[2023-10-19 04:40] LABS: Basophils % 0.1 %; Lymphocytes # 0.4 10^3/uL (0.8-4.8); Lymphocytes % 3.5 %; Mean Corpuscular HGB Conc 29.6 g/dL (30-55); Mean Corpuscular Hemoglobin 26.5 pg (27-33); Mean Corpuscular Volume 89.6 fl (82-101); Mean Platelet Volume 10.3 fL (7.4-10.4); Monocytes # 0.2 10^3/uL (0.2-0.9); Monocytes % 1.4 %; Neutrophils # 11.47 10^3/uL (1.8-7.7); Neutrophils % 94.2 %; Nucleated Red Blood Cells % 0.3 %; Platelet Count 198 10^3/cmm (157-399); Red Blood Count 2.68 10^6/uL (3.85-5.65); Red Cell Distribution Width 15.8 % (12.1-15.1); White Blood Count 12.17 10^3/uL (3.29-11.43)
[2023-10-19 04:58] LABS: Alanine Aminotransferase 22 U/L (0-41); Albumin Level 3.1 g/dL (3.5-5.2); Alkaline Phosphatase 85 U/L (40-130); Anion Gap 13.9 (5-19); Aspartate Amino Transferase 18 U/L (0-40); Blood Urea Nitrogen 50 mg/dL (8-23); Calcium 8.6 mg/dL (8.5-10.5); Carbon Dioxide 24 mmol/L (22-29); Chloride 117 mmol/L (98-107); Creatinine Clr Calc Pharmacy 57.6111; Globulin 2.9 g/dL (1.3-4.6); Glucose 132 mg/dL (65-115); Osmolality Calculated 327 mOsm/kg (285-295); Potassium 3.9 mmol/L (3.5-5.1); Sodium 151 mmol/L (136-145); Total Bilirubin 0.5 mg/dL (0.15-1.2)
[2023-10-19] MEDS: dexmedeTOMIDine 0.9 % NaCL 400 MCG/100 ML PREMIX IV (05:17)
[2023-10-19 05:59] LABS: Hematocrit 23.5 % (37-53)
[2023-10-19] MEDS: sucralfate 1 gm/10 mL Oral Liq UDC PO ×4 (05:59→21:14)
[2023-10-19 06:01] LABS: ABG PCO2 38.4 mmHg (35-45); ABG PH Result 7.41 (7.35-7.45); Alveolar-Arterial Oxygen Gradi 18.5 mmHg (5-10); Arterial Blood Gas Hematocrit 21.8 % (42-52); Base Excess ABG -0.4 mmol/L (-2.0-2.0); Blood Gas Allen Test Pos; Blood Gas Operator Identificat JB; Blood Gas Sample Site Brachial, right; Blood Gas Sample Type Arterial; Carboxyhemoglobin 1.8 %THgb (0.4-20.1); HCO3 ABG 24.2 mmol/L (22-26); HGB O2 Sat 90.9 % (95-100); Ionized Calcium Level - ABG 1.2 mmol/L (1.1-1.4); Methemoglobin 0.4 % (0.4-1.5); Oxygen Device BIPAP; Oxygen Saturation ABG 92.9; PO2 ABG 59.5 mmHg (80.0-100.0); PO2 FiO2 Ratio Arterial Blood 0; Potassium Level - ABG 3.8 mmol/L (3.5-5.0); Total Hemoglobin 7.1 g/dL (14-18)
[2023-10-19] MEDS: budesonide 0.5 mg/2 mL Neb INHALATION ×2 (07:25→19:47)
[2023-10-19 07:29] LABS: Glucose Point of Care 122 mg/dL (70-110)
[2023-10-19 07:29] LABS: Glucose Point of Care 135 mg/dL (70-110)
[2023-10-19] MEDS: sennosides-docusate Tablet 1 TAB PO (08:10)
[2023-10-19] MEDS: finasteride 5 mg Tablet PO (08:10)
[2023-10-19] MEDS: pantoprazole 40 mg SDV IVP ×2 (08:10→17:40)
[2023-10-19] MEDS: docusate sodium 100 mg Capsule PO (08:11)
[2023-10-19] MEDS: aspirin 81 mg EC Tablet PO (08:11)
[2023-10-19] MEDS: cetirizine 10 mg Tablet PO (08:11)
[2023-10-19] MEDS: clopidogrel 75 mg Tablet PO (08:11)
[2023-10-19] MEDS: dextrose 5% 1,000 ML 30 ML IV (09:41)
[2023-10-19] MEDS: FUROsemide 10 mg/mL SDV 2mL 20 MG IVP (09:41)
--- NOTE | 2023-10-19 10:48 | PC.SOCIAL ---
IMM Update Pg. 2 of IMM updated and reviewed with patient and his daughter, who verbalized understanding. Copy Provided.
[2023-10-19 12:20] LABS: Glucose Point of Care 153 mg/dL (70-110)
[2023-10-19] MEDS: insulin lispro 100 unit/1 mL SUBCUT ×3 (12:25→21:14)
--- NOTE | 2023-10-19 13:41 | P.PN_ITS ---
Subjective 2 Subjective: This morning he felt he was doing better. He was sitting up in the chair, in better spirits. Reports he is hungry, requesting to be started on oral diet. Denied pain or discomfort. Later on however with some increased work of breathing, saturation somewhat worse down to 85%. Question of whether could be some aspiration. Vitals/I&O/Wt Last Vital Signs Temp 98.8 F 10/19/23 09:00 Pulse 79 10/19/23 13:18 Resp 20 H 10/19/23 13:18 BP 115/38 10/19/23 12:30 Pulse Ox 89 L 10/19/23 13:18 O2 Del Method Heated High Flow 10/19/23 13:18 O2 Flow Rate 40 10/19/23 13:18 FiO2 50 10/19/23 13:18 10/18/23 10/19/23 10/19/23 22:59 06:59 14:59 Intake Total 276.575 / 276.575 72.687 / 349.262 170 / 170 Output Total 900 / 900 700 / 1600 500 / 500 Balance -623.425 / -623.425 -627.313 / -1250.738 -330 / -330 Weight last 48 hrs Weight 92.533 kg Physical Exam 2 Narrative: Accompanied by family. Const: COMMON NORMALS: alert GENERAL APPEARANCE: cooperative and patient mechanically ventilated ORIENTATION/CONSCIOUSNESS: Yes awake HENMT: COMMON NORMALS: oropharynx normal OTHER: BiPAP Neck/C-Spine: COMMON NORMALS: no JVD Resp: AUSCULTATION: diminished lung sounds Cardio: COMMON NORMALS: no JVD, regular rhythm, S1 normal heart sound present, S2 normal heart sound present and No murmurs present (Cardio) RHYTHM: regular rhythm HEART SOUNDS: S1 normal heart sound present and S2 normal heart sound present GI: COMMON NORMALS: Normal to inspection, nondistended, normoactive bowel sounds present, Soft to palpation and non-tender PALPATION: Yes Soft to palpation Extremity: COMMON NORMALS: no joint enlargement and no pedal edema OTHER: Trace edema right hand. Neuro: COMMON NORMALS: moves all extremities SENSORIUM/ORIENTATION: Yes alert Skin: COMMON NORMALS: no rashes or lesions noted GENERAL SKIN EXAM: no rashes or lesions noted Urinary Catheter Management: Rothman: Cath Placed During This Visit: yes Reason for Continuing Indwelling Catheter: Accurate Measurement of Urinary Output in Critically Ill Patients Urinary Catheter Date of Insertion: 10/13/23 Urinary Catheter Time of Insertion: 06:55 Data 10/19/23 05:48 10/19/23 04:15 A&P Assessment and plan (1) Acute respiratory failure with hypoxia and hypercapnia: This morning up in the chair, better spirits, awake and alert, however, on 50% FiO2 50 L heated high flow. Wanted to try some oral intake, we are going to advance to clear liquid diet, however, later on with some increase in work of breathing, some worsening saturation of 85%. Question of the possibility of aspiration. Will ask ST to evaluate. Remove NGT Continue on increased steroid dose as he does still have some diminished air entry. Additionally given a dose of Lasix with start of low rate D5 infusion. Will obtain a chest x-ray. Discussed with respiratory therapist. Tenuous respiratory status, BiPAP as needed for support. Continue in ICU for now due to risk of deterioration of respiratory failure, risk of reintubation. Reviewed vitals, CBC, ABG, CMP. Precedex has been discontinued. Ativan as needed in case of anxiety. Discussed with case management coordinator. As per discussion with him will benefit from rehabilitation, question of SNF versus LTAC. Discussed with him and family. In setting of COPD exacerbation, community-acquired pneumonia secondary to coronavirus infection not COVID-19. EGD done today. (2) Hypernatremia: Worsening hyponatremia, sodium up to 151, chloride 117. Will add low rate D5 with Lasix. He is so far weaned off Precedex infusion (NaCl). Recheck chemistry this evening. (3) Chronic obstructive pulmonary disease with (acute) exacerbation: Continue increased dose of Solu-Medrol 40 mg every 6 hours. Zosyn. Aggressive pulmonary toilet with sedation vacation. Pulmicort twice daily, DuoNebs every 6 hours. (4) Pneumonia: Concern of pneumonia with bilateral infiltrates. ST assessment. Consider MBS. MRSA swab negative, sputum culture appreciated. Blood cultures so far negative. Continue with IV Zosyn. Will continue IV antibiotics for overall 7-day course. Plan for possible extubation in AM. If worsens will plan for CT chest. (5) NSTEMI (non-ST elevated myocardial infarction): Troponins elevated on admission. History of peripheral arterial disease. Echocardiogram done showed EF of 55%, mild hypokinesia of apical septum, mild LVH, moderate hypokinesia of mid and apical anteroseptal segment, grade 2 diastolic dysfunction with a dilated IVC. PASP of 69 mmHg with moderate pulmonary hypertension, possible prolapse of posterior mitral leaflet with severe eccentric MR, mild AI, mild TR. Given recent GI bleed most likely from gastric trauma from OG tube. Hold off on aspirin and Plavix for next 24 hours. Start aspirin and Plavix in AM. Patient has already received heparin for overall 48 hours. Hold off on any further heparin. Change heparin to 5000 every 12 hourly for DVT prophylaxis. Once patient is more stable he will benefit with further ACS workup with Lexiscan stress test versus angiogram. Appreciate A1c, lipid panel. Continue with home dose of statin. (6) Upper GI bleeding: Reviewed CBC, follow-up CBC requested. Most likely in setting of being on intermittent suction. Appreciate surgical recommendations and EGD. Continue with Protonix 40 mg twice daily and Carafate before meals and at bedtime. Aspirin and Plavix as above. (7) Hypotension: Resolved. Goal blood pressure less than 140/90 mmHg with mean over 65. Currently blood pressure stable. Will use Levophed if needed. Hold off on beta-dixon for now. (8) HAZEL (acute kidney injury): Reviewed kidney function, electrolytes, acid-base balance, renal function improving. Creatinine is down to 1.2. Patient with acute kidney injury superimposed on chronic kidney disease. Creatinine today trending down to normal. Baseline creatinine around 1.3-1.5. Stop normal saline at 50 cc/h. Medication reconciliation done for nephrotoxic drugs. Monitor BMP daily for now. Appreciate renal ultrasound. (9) Anemia: Repeat hemoglobin 7.1. Reassess CBC. Continue PPI. In setting of upper GI bleed. Target hemoglobin more than 8. Hemoglobin so far stable. (10) Elevated brain natriuretic peptide (BNP) level: Echocardiogram demonstrates ejection fraction 56%, some wall motion abnormalities, grade 2/4 diastolic dysfunction. Severe mitral regurgitation is noted. Moderate pulmonary hypertension. From previous studies there was some worsening of mitral regurgitation (11) Acute encephalopathy: Patient with acute encephalopathy. This could be secondary to sepsis, elevated CO2. CT head negative He is able to follow direction when sedation is lessened (12) Sepsis: Patient with concerns for sepsis with focus of infection pneumonia, hypotension, elevated white blood cell count, organ dysfunction of encephalopathy and renal dysfunction. Lactic acid was elevated on first check. Not a candidate for fluid resuscitation secondary to probable cardiac dysfunction with elevated BNP, evidence of extra peripheral fluid. Appears to be improving Plan Underlying anxiety. Peripheral vascular disease with history of foot ulcers. Treat pressure off areas History of hyperglycemia/diabetes: Check A1c. Sliding scale insulin Other medical problems as outlined in past medical history Discussed in detail with patient's family at bedside. Full code currently SCDs for DVT prophylaxis. Heparin 5000 every 12 hourly for DVT prophylaxis. Protonix twice daily will be sufficient for PUD prophylaxis. Attestations 2 Medical Necessity Statement*: Continue admission for assessment management of respiratory failure. Coding Level of Care Code Critical Care >/= 30 minutes Critical care time (in minutes): 35 The high probability of a clinically significant, sudden or life threatening deterioration, as referenced in this documentation, required my full and direct attention, intervention and personal management. The critical care time shown is in addition to time spent performing any reported separately billable procedures and includes the following: [x] Data and vital sign review and interpretation [x ] Patient assessment, examination and intervention [x] Medication orders and management [x] Patient/Family updates as able [x] Care Coordination and Documentation. Diagnoses Acute respiratory failure with hypoxia and hypercapnia J96.01; J96.02 Hypernatremia E87.0 Chronic obstructive pulmonary disease with (acute) exacerbation J44.1 Pneumonia J18.9 NSTEMI (non-ST elevated myocardial infarction) I21.4 Upper GI bleeding K92.2 Hypotension I95.9 HAZEL (acute kidney injury) N17.9 Anemia D64.9 Elevated brain natriuretic peptide (BNP) level R79.89 Acute encephalopathy G93.40 Sepsis A41.9
--- NOTE | 2023-10-19 13:47 | XR_ITS ---
WS: [id number] Exam: XR chest 1V portable [id number] Date/Time of Exam: 10/19/2023 1:48 PM Reason For Exam: hypoxia Comparison 10/18/2023. Widespread airspace and interstitial infiltrates throughout both lungs. Previously noted RIGHT basal consolidation has improved but no other significant change. The lungs are fully expanded. Probable sm all bilateral pleural effusions. Heart size is within normal limits. A right-sided central line noted but the tip is difficult to discern. Probably in the lower SVC. Permanent cardiac pacer superimposes the LEFT chest. Signs of previous CABG surgery. No pneumothorax. Enteric tube has been removed since the last exam. IMPRESSION: 1. Widespread interstitial and airspace infiltrates. RIGHT basal infiltrate shows improvement but no other significant change. 2. Suspect small bibasal pleural effusions.
--- NOTE | 2023-10-19 16:04 | ECG_ITS ---
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 Measurements Intervals [place] Rate: 87 P: 0 PA: 0 QRS: 87 QRSD: 146 T: -85 QT: 388 QTc: 469 Interpretive Statements UNCERTAIN IRREGULAR RHYTHM ELECTRONIC VENTRICULAR PACEMAKER -- CONTOUR ANALYSIS BASED ON INTRINSIC RHYTHM INTRAVENTRICULAR CONDUCTION DELAY [130+ ms QRS DURATION] Compared to ECG 10/13/2023 08:09:28 Intraventricular conduction delay now present ST (T wave) deviation no longer present Myocardial infarct finding no longer present Electronically Signed On 10-19-2023 23:57:13 CDT by Debbie Clark M.D. [id number]
--- NOTE | 2023-10-19 16:25 | PC.NURSE ---
Contacted Dr Dockery to report patient 03/03 chest pain. Orders received for troponin series, ekg, and morphine.
[2023-10-19] MEDS: morphine 4 mg/mL SDV 1 mL 1 MG IVP (16:27)
[2023-10-19 16:55] LABS: Anion Gap 17.8 (5-19); Blood Urea Nitrogen 54 mg/dL (8-23); Calcium 8.9 mg/dL (8.5-10.5); Carbon Dioxide 21 mmol/L (22-29); Chloride 118 mmol/L (98-107); Creatinine Clr Calc Pharmacy 42.7917; Glucose 170 mg/dL (65-115); Osmolality Calculated 335 mOsm/kg (285-295); Potassium 3.8 mmol/L (3.5-5.1); Sodium 153 mmol/L (136-145)
[2023-10-19 17:02] LABS: Troponin(5th) Baseline 108 ng/L (0-15)
[2023-10-19] MEDS: atorvastatin 40 mg Tablet PO (17:40)
[2023-10-19] MEDS: nitroglycerin 0.4 mg sublingual Tablet 0.400000000000000022 MG SUBLINGUAL (17:41)
[2023-10-19 17:47] LABS: Glucose Point of Care 193 mg/dL (70-110)
--- NOTE | 2023-10-19 18:10 | ECG_ITS ---
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 Measurements Intervals [place] Rate: 79 P: 0 DC: 0 QRS: -65 QRSD: 160 T: 84 QT: 443 QTc: 509 Interpretive Statements ELECTRONIC VENTRICULAR PACEMAKER ABNORMAL RHYTHM ECG Compared to ECG 10/19/2023 16:10:36 Intraventricular conduction delay no longer present Electronically Signed On 10-20-2023 0:07:21 CDT by Debbie Clark M.D. [id number]
--- NOTE | 2023-10-19 18:20 | PC.NURSE ---
Patient up to chair until after afternoon meal, Patient stated he was tired and wanted to go back to bed, patient pursed lip breathing and using tripod posture, RT notified, patient back to bed oxygen dropped from low 90's to 81, slow to recover on HF NC, at approximately 1600 patient began reporting chest pain, see previous note for management per Dr valdez, Dr. Dockery also ordered Nitro tablet, patient pain at zero after one tablet. See SEP. NG removed, no complications, Trial diet, this nurse concerned with possible aspiration, tolerates ice chips and passes RN bedside swallow, however patient did have choking during meal. Patient is resting in bed on Bipap with his daughter at bedside at this time.
[2023-10-19 20:06] LABS: Troponin 5 2HR 128.3 ng/L (0-15); Troponin 5 2HR Delta 20.3 ABS# (0-10)
--- NOTE | 2023-10-19 21:34 | ECG_ITS ---
[facility] Test Date: 2023-10-19 Pat Name: Patience Salcedo Department: Room: [facility]09 Gender: Male Lvn: : 1945 Requested By: Kev Dockery Order Number: [id number] Jeffrey MD: Debbie Clark M.D. Measurements Intervals [place] Rate: 80 P: 206 MS: 130 QRS: -53 QRSD: 160 T: 96 QT: 414 QTc: 479 Interpretive Statements ELECTRONIC ATRIAL PACEMAKER ELECTRONIC VENTRICULAR PACEMAKER ABNORMAL RHYTHM ECG Compared to ECG 10/19/2023 18:10:14 No significant changes Electronically Signed On 10-20-2023 0:08:03 CDT by Debbie Clark M.D. [id number]
[2023-10-19 23:16] LABS: Troponin 5 6HR 157.5 ng/L (0-15); Troponin 5 6HR Delta 49.5 ng/L (0-12)
--- NOTE | 2023-10-19 23:45 | PC.NURSE ---
Coughing up blood: removed BiPAP for short break. During this time pt began coughing up maricarmen blood. SpO2 dropped. Pt placed on BiPAP again, SpO2 recovered. RT at bedside to assess pt. Dr. Carrillo called to notify and picture of blood sent via secured messaging. New order for stat H&H.
[2023-10-19] MEDS: ALPRAZolam 0.5 mg Tablet PO (23:52)
[2023-10-20] VITALS (62 sets, daily range): BP systolic 120–165; BP diastolic 40–83; PULSE 72–108; RESP 16–33; TEMP 35.7–36.9; O2SAT 76–97
[2023-10-20 00:24] LABS: Hematocrit 21.3 % (37-53)
[2023-10-20] MEDS: methylPREDNISolone sod succ 40 mg/mL INJ IVP ×4 (01:06→21:00)
[2023-10-20] MEDS: piperacillin-tazobactam 3.375 GM in dextrose 5% (plus) 50 ML IV ×3 (01:07→17:34)
[2023-10-20] MEDS: ipratropium-albuterol 3 mL Neb INHALATION ×4 (02:48→20:29)
[2023-10-20] MEDS: sodium chloride 0.9% 100 mL Bag 50 ML IV (05:32)
[2023-10-20] MEDS: sucralfate 1 gm/10 mL Oral Liq UDC PO ×4 (06:25→21:02)
[2023-10-20 06:56] LABS: Basophils % 0.1 %; Hematocrit 24.6 % (37-53); Lymphocytes # 0.7 10^3/uL (0.8-4.8); Mean Corpuscular Hemoglobin 27.5 pg (27-33); Mean Corpuscular Volume 87.9 fl (82-101); Mean Platelet Volume 10.5 fL (7.4-10.4); Monocytes # 0.4 10^3/uL (0.2-0.9); Monocytes % 2.5 %; Neutrophils # 15.63 10^3/uL (1.8-7.7); Neutrophils % 92.6 %; Nucleated Red Blood Cells # 0.1 /100WBC; Nucleated Red Blood Cells % 0.5 %; Platelet Count 197 10^3/cmm (157-399); Red Cell Distribution Width 15.6 % (12.1-15.1); White Blood Count 16.88 10^3/uL (3.29-11.43)
[2023-10-20 06:59] LABS: Mean Corpuscular HGB Conc 31.3 g/dL (30-55)
[2023-10-20 07:16] LABS: Alanine Aminotransferase 72 U/L (0-41); Albumin Level 3.2 g/dL (3.5-5.2); Alkaline Phosphatase 88 U/L (40-130); Anion Gap 14.5 (5-19); Aspartate Amino Transferase 58 U/L (0-40); Blood Urea Nitrogen 57 mg/dL (8-23); Calcium 8.5 mg/dL (8.5-10.5); Carbon Dioxide 24 mmol/L (22-29); Chloride 115 mmol/L (98-107); Creatinine Clr Calc Pharmacy 42.1493; Globulin 2.5 g/dL (1.3-4.6); Glucose 169 mg/dL (65-115); Osmolality Calculated 330 mOsm/kg (285-295); Potassium 3.5 mmol/L (3.5-5.1); Sodium 150 mmol/L (136-145); Total Bilirubin 0.8 mg/dL (0.15-1.2); Total Protein 5.7 g/dL (6.6-8.7)
[2023-10-20 07:46] LABS: Glucose Point of Care 163 mg/dL (70-110)
[2023-10-20] MEDS: budesonide 0.5 mg/2 mL Neb INHALATION ×2 (07:53→20:29)
[2023-10-20 08:39] LABS: Glucose Point of Care 166 mg/dL (70-110)
[2023-10-20] MEDS: sennosides-docusate Tablet 1 TAB PO (09:24)
[2023-10-20] MEDS: cetirizine 10 mg Tablet PO (09:24)
[2023-10-20] MEDS: insulin lispro 100 unit/1 mL SUBCUT ×4 (09:24→20:59)
[2023-10-20] MEDS: docusate sodium 100 mg Capsule PO (09:25)
[2023-10-20] MEDS: finasteride 5 mg Tablet PO (09:25)
[2023-10-20] MEDS: ALPRAZolam 0.5 mg Tablet PO ×2 (09:25→22:50)
[2023-10-20] MEDS: clopidogrel 75 mg Tablet PO (09:25)
[2023-10-20] MEDS: aspirin 81 mg EC Tablet PO (09:25)
[2023-10-20] MEDS: FUROsemide 10 mg/mL SDV 2mL 20 MG IVP (09:26)
--- NOTE | 2023-10-20 09:30 | P.CONIM_ITS ---
Providers/Reason For Consult 2 Consulting Physician/Specialty*: Marvin Garcia MD/ Cardiology Reason for Consult*: Troponin elevation/ respiratory failure Attending Physician: Kev Dockery Primary Care Provider: Hema Hartman MD History of Present Illness History of Present Illness Patience Salcedo is a 78 year old male with past medical history of coronary artery disease s/p CABG, peripheral artery disease, COPD who was admitted to hospital with respiratory failure. He is extubated now. He also was found to have COPD exacerbation, pneumonia and [id number] coronavirus infection. Cardiology was consulted as patient's troponin initially went up from 66-1 08. It was repeated again and was 157. He denies chest pain. Patient still has high oxygen requirements. Echo showed normal LV systolic function with severe eccentric mitral regurgitation and possible prolapse of posterior mitral valve leaflet. EKG showed paced rhythm. Of note patient has GI bleed and required blood transfusions. Also was having hemoptysis now. Review of Systems 2 Narrative: CONSTITUTIONAL: No fever chills weight loss or gain or night sweats. [] HEENT: Normocephalic, atraumatic.[] RESPIRATORY: Shortness of breath. Hemoptysis CARDIOVASCULAR: Has shortness of breath. GI: no nausea vomiting diarrhea. [] RADIOLOGICAL TECHNOLOGIST: No numbness, tingling, weakness or loss of function in any part of the body. [] MUSCULOSKELETAL: No knee or joint pain or rashes. [] Medications/Allergies Home Medications Medication Instructions Recorded Confirmed Last Taken Type atorvastatin 40 mg tablet 40 mg PO QPM 01/07/20 10/13/23 10/12/23 History garlic 1,000 mg capsule 1,000 mg PO DAILY 01/07/20 10/13/23 10/12/23 History metformin 500 mg tablet,extended 500 mg PO BID 01/07/20 10/13/23 10/12/23 History release 24 hr montelukast 10 mg tablet 10 mg PO DAILY 01/07/20 10/13/23 10/12/23 History multivitamin (Multiple Vitamins 1 tab PO DAILY 01/07/20 10/13/23 10/12/23 History tablet) omega 1-umt-zia-fish oil 1,000 mg 1 cap PO DAILY 01/07/20 10/13/23 10/12/23 History (120 mg-180 mg) capsule (Fish Oil) finasteride 5 mg tablet 5 mg PO DAILY 03/07/20 10/13/23 10/12/23 History clopidogrel 75 mg tablet 75 mg PO DAILY #90 tabs 05/12/20 10/13/23 10/12/23 Rx fluticasone fur. 100 mcg-umeclid 1 inh inhalation DAILY 11/18/20 10/13/23 10/12/23 History 62.5 mcg-vilant 25 mcg inhalat.powder (Trelegy Ellipta) fluticasone propionate 50 1 spray intranasal DAILY PRN Dry 02/02/21 10/13/23 04/17/23 History mcg/actuation nasal Nasal Passages spray,suspension furosemide 20 mg tablet 20 mg PO DAILY 07/15/21 10/13/23 10/12/23 History guaifenesin 600 mg tablet, 600 mg PO DAILY 12/17/21 10/13/23 10/12/23 History extended release 12 hr (Mucinex) aspirin 81 mg tablet,delayed 81 mg PO DAILY #90 tabs 12/28/21 10/13/23 10/12/23 Rx release (Adult Aspirin Regimen) cholecalciferol (vitamin D3) 10 10 mcg PO DAILY 02/15/22 10/13/23 10/12/23 History mcg (400 unit) capsule albuterol sulfate 90 mcg/actuation 2 inh inhalation Q8H PRN shortness 07/21/22 10/13/23 08/13/22 Rx aerosol inhaler of breath or wheezing #8.5 grams custom molded accomodative #1 ea 05/18/23 10/13/23 Unknown Rx orthotics and shoes carvedilol 3.125 mg tablet (Coreg) 3.125 mg PO BID #180 tabs 05/30/23 10/13/23 10/12/23 Rx albuterol sulfate 2.5 mg/3 mL 2.5 mg inhalation Q6H PRN 10/13/23 10/13/23 10/12/23 History (0.083 %) solution for nebulization Shortness Of Breath cetirizine 10 mg tablet 10 mg PO DAILY 10/13/23 10/13/23 10/12/23 History prednisone 10 mg tablet See Rx Instructions .Route .COMPLEX 10/13/23 10/13/23 10/12/23 History Allergies Allergy/AdvReac Type Severity Reaction Status Date / Time No Known Allergies Allergy Verified 09/26/23 09:07 Current Medications Generic Name Dose Route Start Last Admin Trade Name Kwaku PRN Reason Stop Dose Admin Albuterol/Ipratropium 3 ml 10/13/23 14:00 10/20/23 07:53 Ipratropium-Albuterol 3 Ml Neb INHALATION 3 ml Q6H.RESP HANNAH Administration Alprazolam 0.5 mg 10/19/23 16:40 10/19/23 23:52 Alprazolam 0.5 Mg Tablet PO 0.5 mg TID PRN Administration ANXIETY Aspirin 81 mg 10/17/23 09:00 10/19/23 08:11 Aspirin 81 Mg Ec Tablet PO 81 mg DAILY HANNAH Administration Atorvastatin Calcium 40 mg 10/13/23 18:00 10/19/23 17:40 Atorvastatin 40 Mg Tablet PO 40 mg QPM HANNAH Administration Budesonide 0.5 mg 10/13/23 20:00 10/20/23 07:53 Budesonide 0.5 Mg/2 Ml Neb INHALATION 0.5 mg BID.RESPIRATORY HANNAH Administration Cetirizine HCl 10 mg 10/14/23 09:00 10/19/23 08:11 Cetirizine 10 Mg Tablet PO 10 mg DAILY HANNAH Administration Clopidogrel Bisulfate 75 mg 10/14/23 09:00 10/19/23 08:11 Clopidogrel 75 Mg Tablet PO 75 mg DAILY HANNAH Administration Docusate Sodium 100 mg 10/16/23 12:00 10/19/23 08:11 Docusate Sodium 100 Mg Capsule PO 100 mg DAILY HANNAH Administration Finasteride 5 mg 10/14/23 09:00 10/19/23 08:10 Finasteride 5 Mg Tablet PO 5 mg DAILY HANNAH Administration Furosemide 20 mg 10/19/23 09:20 10/19/23 09:41 Furosemide 10 Mg/Ml Sdv 2ml IVP 20 mg DAILY HANNAH Administration Heparin Sodium (Porcine) 5,000 unit 10/16/23 12:00 10/19/23 12:25 Heparin 5,000 Unit/Ml Inj 1 Ml SUBCUT 5,000 unit Q12H HANNAH Administration norepinephrine 4 mg in 250 mls @ 0 mls/hr 10/13/23 08:15 10/17/23 19:00 Levophed IV Infused .Q0M HANNAH Titration Protocol Per Protocol Dexmedetomidine/Sodium Chloride 400 mcg in 100 mls @ 0 mls/hr 10/15/23 09:30 10/19/23 06:27 Precedex IV 0 mcg/kg/hr .Q0M HANNAH 0 mls/hr Titration Protocol Per Protocol Piperacillin Sod/Tazobactam 50 mls @ 12.5 mls/hr 10/18/23 17:00 10/20/23 05:33 Sod 3.375 gm/ Dextrose IV Infused Q8H HANNAH Infusion Protocol Dextrose 1,000 mls @ 30 mls/hr 10/19/23 09:15 10/19/23 23:00 D5w IV 30 mls/hr .Q24H HANNAH Infusion Insulin Human Lispro 0 unit 10/13/23 12:00 10/19/23 21:14 Insulin Lispro 100 Unit/1 Ml SUBCUT 2 unit WM&BEDTIME HANNAH Administration Protocol Methylprednisolone Sodium Succinate 40 mg 10/18/23 20:00 10/20/23 07:55 Methylprednisolone Sod Succ 40 Mg/Ml Inj IVP 40 mg Q6H HANNAH Administration Morphine Sulfate 1 mg 10/19/23 16:20 10/19/23 16:27 Morphine 4 Mg/Ml Sdv 1 Ml IVP 1 mg Q2H PRN Administration SEVERE PAIN Nitroglycerin 0.4 mg 10/19/23 17:07 10/19/23 17:41 Nitroglycerin 0.4 Mg Sublingual Tablet SUBLINGUAL 0.4 mg Q5M PRN Administration CHEST PAIN Pantoprazole Sodium 40 mg 10/15/23 18:00 10/19/23 17:40 Pantoprazole 40 Mg Sdv IVP 40 mg BID HANNAH Administration Senna/Docusate Sodium 1 tab 10/16/23 12:00 10/19/23 08:10 Sennosides-Docusate Tablet PO 1 tab DAILY HANNAH Administration Sodium Chloride 50 ml 10/20/23 00:33 10/20/23 05:32 Sodium Chloride 0.9% 100 Ml Bag IV 10/21/23 00:34 50 ml PRN PRN Administration Blood transfusion prime and flush Sucralfate 1 gm 10/15/23 17:00 10/20/23 06:25 Sucralfate 1 Gm/10 Ml Oral Liq Udc PO 1 gm AC&BEDTIME HANNAH Administration PFSH Acute 2 PFSH: Medical History (Updated 10/27/23 @ 11:21 by Marvin Garcia M.D) Pacemaker Pneumonia Peripheral angiopathy due to diabetes mellitus Amputation of one or more toes CHF exacerbation Influenza Hypoxia Peripheral arterial disease with history of revascularization Ex-smoker for more than 1 year Chronic kidney disease Peripheral neuropathy Smoker within last 12 months Hemoptysis Obesity -BMI-31 kg/m2 Non-insulin dependent diabetes mellitus HTN (hypertension) Chronic anemia -baseline Hg around 10 CKD (chronic kidney disease) stage 2, GFR 60-89 ml/min -baseline Cr wnl HAZEL (acute kidney injury) AV heart block COPD exacerbation -acute COPD exacerbation; likely triggered by pneumonia -not oxygen dependent at baseline; may need home oxygen evaluation prior to d/c -continue to monitor respiratory status -on steroids (switched to IV), Neb treatments and antibiotics -supplemental oxygen as needed Hypoxia Fracture, femoral CAD (coronary artery disease) DARIUS (obstructive sleep apnea) -CPAP qhs COPD (chronic obstructive pulmonary disease) Congestive heart failure Community acquired pneumonia Surgical History (Updated 10/22/23 @ 00:01 by SHAINA Loya) Hx of cholecystectomy Hx of CABG Family History Mother CAD (coronary artery disease) Social History (Updated 10/13/23 @ 12:57 by Arnol Barclay MD) Smoking and tobacco/nicotine status: current every day tobacco/nicotine user Quit status (tobacco/nicotine): has quit using Year quit tobacco: 2015 - 1ppd x 60 Second hand smoke exposure: No Alcohol intake: never Substance/Drug Use: never Lives independently: Yes Household members: spouse Marital status: Current occupational status: retired Do you think of yourself as: Straight/Heterosexual Current gender identity: Male Vitals/I&O/Wt Last Vital Signs Temp 98.2 F 10/20/23 04:15 Pulse 90 10/20/23 07:56 Resp 20 H 10/20/23 07:56 BP 145/62 10/20/23 06:00 Pulse Ox 87 L 10/20/23 07:56 O2 Del Method Heated High Flow 10/20/23 07:50 O2 Flow Rate 40 10/20/23 07:56 FiO2 55 10/20/23 07:56 10/19/23 10/20/23 10/20/23 22:59 06:59 14:59 Intake Total 60 / 230 799.5 / 1029.5 Output Total 700 / 1200 Balance 60 / -270 99.5 / -170.5 Weight last 48 hrs Weight 197 lb 5.019 oz Weight 204 lb Physical Exam 2 Narrative: GENERAL: Patient is alert, awake and oriented x3. [] NECK: No jugular vein distension. [] HEENT: No cyanosis. No icterus. No pallor. [] HEART: Regular S1 and S2. Grade 3/6 systolic murmur LUNGS: Diminished air entry CENTRAL NERVOUS SYSTEM: Grossly nonfocal. [] EXTREMITIES: Lower extremities with 1+ edema bilaterally Urinary Catheter Management: Rothman: Cath Placed During This Visit: yes Reason for Continuing Indwelling Catheter: Accurate Measurement of Urinary Output in Critically Ill Patients Urinary Catheter Date of Insertion: 10/13/23 Urinary Catheter Time of Insertion: 06:55 Data 10/20/23 17:30 10/20/23 06:45 A&P Assessment and plan (1) Mitral regurgitation: (2) Troponin level elevated: (3) Congestive heart failure: Qualifiers: Heart failure chronicity: chronic Heart failure type: diastolic Qualified Code(s): I50.32 - Chronic diastolic (congestive) heart failure (4) CAD (coronary artery disease): Qualifiers: Coronary Disease-Associated Artery/Lesion type: [place] artery [place] vs. transplanted heart: [place] heart Associated angina: without angina Qualified Code(s): I25.10 - Atherosclerotic heart disease of [place] coronary artery without angina pectoris (5) HTN (hypertension): Qualifiers: Hypertension type: essential hypertension Qualified Code(s): I10 - Essential (primary) hypertension (6) Pacemaker: (7) Upper GI bleeding: (8) Anemia: (9) COPD (chronic obstructive pulmonary disease): (10) Hemoptysis: Plan Patient's troponin elevation is likely secondary to demand ischemia. Patient is chest pain free. He has multiple comorbidities at this time. He has significant anemia requiring blood transfusion, GI bleed, hemoptysis, respiratory failure secondary to pneumonia/non COVID-19 infection/COPD exacerbation. Given requirement for blood transfusion, anticoagulation is on hold. ECHO showed possible severe eccentric mitral regurgitation with prolapse of posterior leaflet. This will require further investigation with SHASHA. Per medicine team, pulmonology service not available for evaluation of hemoptysis. Prior to SHASHA, needs to ascertain source of bleeding. Given complexity of patient's condition, will recommend transferring to tertiary care facility with availability of all services. No changes to medications at this time. Please call with questions. Consult Attestations 2 Medical Necessity Statement: Care expected to cross 2 midnights. Coding Level of Care Code Acute Code for Chg Fwd Diagnoses Mitral regurgitation I34.0 Troponin level elevated R79.89 Chronic diastolic congestive heart failure I50.32 Heart failure chronicity: chronic Heart failure type: diastolic Coronary artery disease involving [place] coronary artery of [place] heart without angina pectoris I25.10 Coronary Disease-Associated Artery/Lesion type: [place] artery [place] vs. transplanted heart: [place] heart Associated angina: without angina Essential hypertension I10 Hypertension type: essential hypertension Pacemaker Z95.0 Upper GI bleeding K92.2 Anemia D64.9 Chronic obstructive pulmonary disease, unspecified COPD type J44.9 Hemoptysis R04.2
[2023-10-20] MEDS: pantoprazole 40 mg SDV IVP ×2 (10:02→18:14)
[2023-10-20 11:33] LABS: Glucose Point of Care 186 mg/dL (70-110)
--- NOTE | 2023-10-20 15:52 | P.PN_ITS ---
Vitals/I&O/Wt Last Vital Signs Temp 96.2 F L 10/20/23 13:00 Pulse 87 10/20/23 13:30 Resp 23 H 10/20/23 13:30 BP 130/56 10/20/23 13:30 Pulse Ox 91 10/20/23 13:30 O2 Del Method Heated High Flow 10/20/23 13:29 O2 Flow Rate 60 10/20/23 13:29 FiO2 58 10/20/23 13:29 10/20/23 10/20/23 10/20/23 06:59 14:59 22:59 Intake Total 799.5 / 1029.5 300 / 300 Output Total 700 / 1200 400 / 400 Balance 99.5 / -170.5 -100 / -100 Weight last 48 hrs Weight 89.5 kg Weight 92.533 kg Physical Exam 2 Urinary Catheter Management: Rothman: Cath Placed During This Visit: yes Reason for Continuing Indwelling Catheter: Accurate Measurement of Urinary Output in Critically Ill Patients Urinary Catheter Date of Insertion: 10/13/23 Urinary Catheter Time of Insertion: 06:55 Data 10/20/23 06:45 10/20/23 06:45 Coding Level of Care Code Acute Code for Chg Fwd
[2023-10-20] MEDS: atorvastatin 40 mg Tablet PO (17:33)
[2023-10-20 18:10] LABS: Glucose Point of Care 169 mg/dL (70-110)
[2023-10-20 18:10] LABS: Basophils % 0.1 %; Lymphocytes # 0.6 10^3/uL (0.8-4.8); Lymphocytes % 2.8 %; Mean Corpuscular HGB Conc 32.2 g/dL (30-55); Mean Corpuscular Hemoglobin 27.9 pg (27-33); Mean Corpuscular Volume 86.8 fl (82-101); Mean Platelet Volume 10.6 fL (7.4-10.4); Monocytes # 0.8 10^3/uL (0.2-0.9); Monocytes % 3.7 %; Neutrophils # 19.17 10^3/uL (1.8-7.7); Neutrophils % 92.4 %; Nucleated Red Blood Cells # 0.3 /100WBC; Nucleated Red Blood Cells % 1.3 %; Platelet Count 212 10^3/cmm (157-399); Red Blood Count 2.65 10^6/uL (3.85-5.65); Red Cell Distribution Width 15.9 % (12.1-15.1); White Blood Count 20.73 10^3/uL (3.29-11.43)
--- NOTE | 2023-10-20 19:38 | PC.NURSE ---
SHift SUmmary: patient was up to a chair for most of the day. Morning dose on ativan seemed to help with air hunger and he was off of bipap for the whole day with saturations between 88-92% on the high flow. Patient has had two instnaces of hemoptysis of mar[place]en red blood prompting stopping of aspirin and plavix (heparin was stopped yesterday), and placing on TB rule out.
[2023-10-20] MEDS: dextrose 5% 1,000 ML 30 ML IV (21:00)
--- NOTE | 2023-10-20 22:21 | PM.TDS ---
Transfer Summary Providers Date of Admission: 10/13/23 08:33 Date of Discharge/Transfer: 10/20/23 Attending Provider at Admission: Arnol Barclay MD Attending Provider at Transfer: Kev Dockery Primary Care Provider: Hema Hartman MD Transfer Plans: Anticipated date of transfer: 10/20/23. Diagnoses at Discharge Discharge Diagnosis (1) Acute respiratory failure with hypoxia and hypercapnia: Status: Acute (2) Hypernatremia: Status: Acute (3) Chronic obstructive pulmonary disease with (acute) exacerbation: Status: Acute (4) Pneumonia: Status: Acute (5) NSTEMI (non-ST elevated myocardial infarction): Status: Acute (6) Upper GI bleeding: Status: Acute (7) Hypotension: Status: Acute (8) HAZEL (acute kidney injury): Status: Acute (9) Anemia: Status: Acute (10) Elevated brain natriuretic peptide (BNP) level: Status: Acute (11) Acute encephalopathy: Status: Acute (12) Sepsis: Status: Acute Reason for Visit Reason for Visit SOB Hospital Course Hospital Course Very pleasant 78-year-old gentleman with history of CAD, quadruple CABG, diastolic CHF, diabetes, peripheral artery disease, history of critical limb ischemia right lower extremity, aspirin, Plavix, requiring intervention and toe amputation, 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, DM2, peripheral neuropathy, CKD 2, COPD, DARIUS on CPAP, smoking, remote history of latent TB, other medical problems was admitted due to acute respiratory failure, requiring intubation, mechanical ventilatory support, with finding of pneumonia with bilateral infiltrates possibly secondary to [id number] coronavirus strain for which he also tested positive, treated with broad-spectrum antibiotics with vancomycin, Zosyn, also with COPD exacerbation was treated with steroids, breathing treatments, optimization with septic shock requiring pressor support, acute encephalopathy, NSTEMI, troponin with elevation from 66 up to 108, was continued on aspirin, Plavix, heparin, additionally with upper GI bleeding for which surgery was consulted, heparin was held, underwent EGD with noted focal gastritis/erosion suspected secondary to NGT. Continues on twice daily IV PPI. Had a vasovagal event during endoscopy which resolved after desufflation of the stomach. Showed gradual improvement in septic shock eventually weaned off pressor, encephalopathy resolved, respiratory status gradually improving while intubated, although with persistent infiltrates, eventually did come down on FiO2 requirement, waking up, although anxiety did complicate weaning, continued on Precedex for some time, eventually extubated on 10/16 to 6 L nasal cannula, she was some improvement, weaned down to 4 L, but subsequently with some worsening and then with some CO2 retention and hypoxia on repeat ABG was started on BiPAP. Respiratory status since then with some tach tango improvement and some worsening, some persistent interstitial opacities, continued on antibiotics with Zosyn, blood cultures and sputum cultures remain without growth apart from normal christiano, steroids initially were tapered down but with some decreased air entry, rhonchi, or increased to Solu-Medrol 40 mg every 6 hours. Speech therapy assessment was obtained, with recommendation for dysphagia diet with mildly thickened liquids. With hypernatremia, fluids were changed to D5 for possible, weaned off Precedex drip. Hyponatremia and hyperchloremia with worsening and had to be started on low rate D5 infusion with some Lasix, currently showing some improvement from down from 153-150. He did show some further improvement was able to wean off BiPAP to heated high flow, but with some transient worsening yesterday with some increased work of breathing, question of some possibly mild aspiration, additionally troponin EKG series were repeated, without further worsening of troponin up from 108 up to 157. Additionally overnight noted worsening hemoglobin, down to 6.4. Cardiology assessment was obtained but due to the multiple comorbidities including worsening anemia, was not found to be a safe candidate for additional workup/intervention with coronary angiography, additionally earlier this afternoon he developed maricarmen hemoptysis, prophylactic heparin dose was held, and with repeat hemoptysis aspirin and Plavix were held as well. None massive hemoptysis, total possibly 30-50 cc, however, with extensive vasculopathy, currently with NSTEMI, inability to tolerate antiplatelets in the moment, and inability to further assess and control the source of bleed to allow to restart antiplatelets with recommendation of cardiology as well we discussed transfer to higher level care facility. Additionally as discussed with cardiology on echocardiogram noted in addition to grade 2 diastolic dysfunction with normal EF, mitral valve appears to have possibly severe eccentric regurgitation which appears to be new compared to prior echocardiogram back in 2019 at which point it was mild to moderate. Of note pertaining to the hemoptysis as per discussed with the accepting chief nursing officer at [facility] Dr. Yee, patient has had hemoptysis back in 2020 as well, with history of latent TB, TB studies were obtained back then including QuantiFERON, AFB, which appear to have come back negative at that time. Repeat QuantiFERON is requested, as well as AFB, QuantiFERON was collected, none of the AFB so far. Additionally with new possibly severe mitral regurgitation, consideration given to this being the possible cause of the hemoptysis, and prior echo was also done back in 2019 at that time also noted to have mild to moderate regurgitation now. Question whether it was new at that time, possibly now with worsening perhaps leading to recurrence of hemoptysis. He did have bronchoscopy last time which showed some pooled blood around the angelo without obvious source of bleed. Current time we are unable to perform bronchoscopy or due to lack of chief nursing officer/pulmonology or CT surgery, in addition in case of bleeding were to worsen there is lack of the above-mentioned specialties and also inability to perform IR embolization at this facility as well. Patient and family understand that there is a risk with transfer, possibility of deterioration and route with reduced capacity for treatment and intervention and route, although certainly the options are limited here as well. He is not currently having massive hemoptysis, but this condition also limits his further assessment and treatment. And he would also benefit from further assessment and consideration of whether might regurgitation is indeed severe, which in case it is new could be causing his symptoms both directly possibly contributing to pulmonary edema and possibly also through airway bleeding reducing capacity for gas exchange, and consideration could be given to whether he may be candidate for MitraClip repair. Of note also patient and daughter have discussed today and decided that in case of cardiopulmonary arrest he would not want CPR or intubation, but he states that he is okay for intubation in case of worsening hemoptysis, he is also okay for additional assessments and intervention procedures as may be recommended and discussed with him over at [facility]. He is agreeable with transfer for further diagnostic and treatment interventions and both he and his daughter understand the risks. Otherwise prior to the development of the abscess today plans were for him to also undergo rehabilitation, possibly an LTAC settings given his slow progress/improvement. Physical Exam Narrative: Accompanied by his daughter. Const: COMMON NORMALS: alert GENERAL APPEARANCE: cooperative and patient mechanically ventilated ORIENTATION/CONSCIOUSNESS: Yes awake HENMT: COMMON NORMALS: oropharynx normal OTHER: HHF Neck/C-Spine: COMMON NORMALS: no JVD Resp: AUSCULTATION: rhonchi Cardio: COMMON NORMALS: no JVD, regular rhythm, S1 normal heart sound present, S2 normal heart sound present and No murmurs present (Cardio) RHYTHM: regular rhythm HEART SOUNDS: S1 normal heart sound present and S2 normal heart sound present GI: COMMON NORMALS: Normal to inspection, nondistended, normoactive bowel sounds present, Soft to palpation and non-tender PALPATION: Yes Soft to palpation Extremity: COMMON NORMALS: no joint enlargement and no pedal edema OTHER: Trace edema right hand. Neuro: COMMON NORMALS: moves all extremities SENSORIUM/ORIENTATION: Yes alert Skin: COMMON NORMALS: no rashes or lesions noted GENERAL SKIN EXAM: no rashes or lesions noted Urinary Catheter Management: Rothman: Cath Placed During This Visit: yes Reason for Continuing Indwelling Catheter: Accurate Measurement of Urinary Output in Critically Ill Patients Urinary Catheter Date of Insertion: 10/13/23 Urinary Catheter Time of Insertion: 06:55 TS Data Studies Completed and Pending Pending at discharge Category Date Time Status AFB [Mycobacteria, Culture w/Fluor] Q12H Lab 10/20/23 17:36 Uncollected AFB [Mycobacteria, Culture w/Fluor] Q12H Lab 10/21/23 05:36 Uncollected AFB [Mycobacteria, Culture w/Fluor] Q12H Lab 10/21/23 17:36 Uncollected Complete Blood Count w/Auto AM LABS Lab 10/21/23 04:00 Ordered Complete Blood Count w/Auto AM LABS Lab 10/22/23 04:00 Ordered Complete Blood Count w/Auto AM LABS Lab 10/23/23 04:00 Ordered Comprehensive Metabolic Panel AM LABS Lab 10/21/23 04:00 Ordered Comprehensive Metabolic Panel AM LABS Lab 10/22/23 04:00 Ordered Comprehensive Metabolic Panel AM LABS Lab 10/23/23 04:00 Ordered Occult Blood Stool [Immunochemical Fecal OCB] Routine Lab 10/19/23 09:17 Uncollected PACKED CELLS [Leukocyte Reduced RBC] Routine Lab 10/20/23 00:33 Results [id number] Plus Routine Lab 10/20/23 19:32 Received Type and Screen Routine Lab 10/20/23 00:33 Results Completed Studies During Hospitalization Category Date Time Status CT head wo con* [id number] Stat Cat Scan 10/13/23 07:36 Completed CXRP [XR chest 1V portable [id number]] Routine Exams 10/19/23 13:47 Completed XR chest 1V portable [id number] QAM Exams 10/17/23 04:00 Completed XR chest 1V portable [id number] QAM Exams 10/18/23 04:00 Completed XR chest 1V portable [id number] Routine Exams 10/13/23 09:10 Completed XR chest 1V portable [id number] Routine Exams 10/14/23 07:00 Completed XR chest 1V portable [id number] Routine Exams 10/15/23 07:00 Completed XR chest 1V portable [id number] Stat Exams 10/13/23 06:48 Completed XR chest 1V portable [id number] Stat Exams 10/16/23 13:19 Completed XR chest 1V portable [id number] Urgent Exams 10/16/23 12:14 Completed CV. echo complete* [id number] Routine Ultrasound 10/13/23 11:50 Completed US renal BI* [id number] Routine Ultrasound 10/14/23 10:18 Completed Laboratory Last Values WBC 20.73 10^3/uL (3.29-11.43) H 10/20/23 17:30 RBC 2.65 10^6/uL (3.85-5.65) L 10/20/23 17:30 Hgb 7.40 g/dL (11.27-16.99) L 10/20/23 17:30 Hct 23.0 % (37-53) L 10/20/23 17:30 MCV 86.8 fl (82-101) 10/20/23 17:30 MCH 27.9 pg (27-33) 10/20/23 17:30 MCHC 32.2 g/dL (30-55) 10/20/23 17:30 RDW 15.9 % (12.1-15.1) H 10/20/23 17:30 Plt Count 212 10^3/cmm (157-399) 10/20/23 17:30 MPV 10.6 fL (7.4-10.4) H 10/20/23 17:30 Neut % (Auto) 92.4 % 10/20/23 17:30 Lymph % (Auto) 2.8 % 10/20/23 17:30 Hutchinson % (Auto) 3.7 % 10/20/23 17:30 Eos % (Auto) 0.0 % 10/20/23 17:30 Baso % (Auto) 0.1 % 10/20/23 17:30 Neut # (Auto) 19.17 10^3/uL (1.8-7.7) H 10/20/23 17:30 Lymph # (Auto) 0.6 10^3/uL (0.8-4.8) L 10/20/23 17:30 Hutchinson # (Auto) 0.8 10^3/uL (0.2-0.9) 10/20/23 17:30 Eos # (Auto) 0.0 10^3/uL (0.0-0.8) 10/20/23 17:30 Baso # (Auto) 0.0 10^3/uL (0.0-0.1) 10/20/23 17:30 Nucleated RBC % (auto) 1.3 % 10/20/23 17:30 Nucleated RBCs # 0.3 /100WBC 10/20/23 17:30 PT 16.60 SECONDS (12.1-14.9) H 10/20/23 19:32 INR 1.30 (0.8-1.2) H 10/20/23 19:32 APTT 25.1 SECONDS (23.9-36.7) D 10/15/23 16:47 Specimen Type Arterial 10/19/23 05:46 Sample Site Brachial, right 10/19/23 05:46 ABG pH 7.41 (7.35-7.45) 10/19/23 05:46 ABG pCO2 38.4 mmHg (35-45) 10/19/23 05:46 ABG pO2 59.5 mmHg (80.0-100.0) L 10/19/23 05:46 ABG PO2/FiO2 Ratio 0 10/19/23 05:46 ABG HCO3 24.2 mmol/L (22-26) 10/19/23 05:46 ABG O2 Saturation 92.9 10/19/23 05:46 ABG Base Excess -0.4 mmol/L (-2.0-2.0) 10/19/23 05:46 Carlo Test Pos 10/19/23 05:46 A-a O2 Gradient 18.5 mmHg (5-10) H 10/19/23 05:46 Hematocrit 21.8 % (42-52) L 10/19/23 05:46 Hgb O2 Saturation 90.9 % (95-100) L 10/19/23 05:46 Carboxyhemoglobin 1.8 %THgb (0.4-20.1) 10/19/23 05:46 Methemoglobin 0.4 % (0.4-1.5) 10/19/23 05:46 Total Hemoglobin 7.1 g/dL (14-18) L 10/19/23 05:46 Sodium 155.0 mmol/L (131-143) H 10/19/23 05:46 Potassium 3.8 mmol/L (3.5-5.0) 10/19/23 05:46 Glucose 136.0 mg/dL (70-115) H 10/19/23 05:46 Ionized Calcium 1.2 mmol/L (1.1-1.4) 10/19/23 05:46 O2 Delivery Device Bipap 10/19/23 05:46 O2 Liters/Min 5.0 % 10/18/23 04:22 FiO2 35.0 % 10/19/23 05:46 Tidal Volume 0.56 10/15/23 04:30 PEEP 8.0 cmH20 10/17/23 04:18 Insulation Machine Operator ID Adan 10/19/23 05:46 Sodium 150 mmol/L (136-145) H 10/20/23 06:45 Potassium 3.5 mmol/L (3.5-5.1) 10/20/23 06:45 Chloride 115 mmol/L (98-107) H 10/20/23 06:45 Carbon Dioxide 24 mmol/L (22-29) 10/20/23 06:45 Anion Gap 14.5 (5-19) 10/20/23 06:45 BUN 57 mg/dL (8-23) H 10/20/23 06:45 Creatinine 1.6 mg/dL (0.7-1.2) H 10/20/23 06:45 GFR Calculation Not Reportable 10/20/23 06:45 Glucose 169 mg/dL (65-115) H 10/20/23 06:45 POC Glucose 169 mg/dL (70-110) H 10/20/23 17:32 Estimat Average Glucose 108 10/16/23 05:15 Hemoglobin A1c 5.4 % (4.0-6.0) 10/16/23 05:15 Calculated Osmolality 330 mOsm/kg (285-295) H 10/20/23 06:45 Lactic Acid 2.3 mmol/L (0.5-2.2) H 10/13/23 06:41 Lactic Acid (Sepsis) 1.6 mmol/L (0.5-2.2) 10/13/23 10:37 Calcium 8.5 mg/dL (8.5-10.5) 10/20/23 06:45 Magnesium 2.3 mg/dL (1.7-2.3) 10/18/23 04:47 Iron 7 ug/dL (59-158) L 10/15/23 04:56 TIBC 278 mcg/dl 10/15/23 04:56 % Saturation 2.5 % (20-50) L 10/15/23 04:56 Unsat Iron Binding 271 ug/dL (112-347) 10/15/23 04:56 Total Bilirubin 0.8 mg/dL (0.15-1.2) 10/20/23 06:45 AST 58 U/L (0-40) H 10/20/23 06:45 ALT 72 U/L (0-41) H 10/20/23 06:45 Alkaline Phosphatase 88 U/L (40-130) 10/20/23 06:45 Creatine Kinase 34 U/L (39-308) L 10/13/23 06:41 Troponin T Baseline 108 ng/L (0-15) H* 10/19/23 16:15 Troponin T 120 Minute 128.3 ng/L (0-15) H 10/19/23 19:05 Delta Troponin T 20.3 ABS# (0-10) H* 10/19/23 19:05 Troponin T Hi Sens 6Hr 157.5 ng/L (0-15) H 10/19/23 22:19 Troponin T Hi Sens 6Hr Delta 49.5 ng/L (0-12) H* 10/19/23 22:19 NT-Pro-B Natriuret Pep 3477 pg/mL (0-450) H 10/13/23 06:41 Total Protein 5.7 g/dL (6.6-8.7) L 10/20/23 06:45 Albumin 3.2 g/dL (3.5-5.2) L 10/20/23 06:45 Globulin 2.5 g/dL (1.3-4.6) 10/20/23 06:45 Triglycerides 211 mg/dL (0-150) H 10/16/23 05:15 Cholesterol 155 mg/dL (0-200) 10/16/23 05:15 LDL Cholesterol, Calc 61 mg/dL (50-129) 10/16/23 05:15 Total VLDL Cholesterol 42 mg/dL (0-30) H 10/16/23 05:15 HDL Cholesterol 52 mg/dL (60-100) L 10/16/23 05:15 Cholesterol/HDL Ratio 2.98 mg/dL (1.0-5.00) 10/16/23 05:15 Lipase 28 U/L (13-60) 10/13/23 06:41 Vitamin B12 836 pg/mL (232-1245) 10/15/23 04:56 Folate 17.8 ng/mL (4.5-32.2) 10/16/23 05:15 TSH 3.08 uIU/mL (0.27-4.20) 10/13/23 06:41 Urine Color Yellow (Yellow) 10/13/23 06:41 Urine Appearance Hazy (CLEAR) A 10/13/23 06:41 Urine pH 5 (5-7) 10/13/23 06:41 Ur Specific [place] 1.015 (1.005-1.030) 10/13/23 06:41 Urine Protein Neg (Negative) 10/13/23 06:41 Urine Glucose (UA) Norm (Normal) 10/13/23 06:41 Urine Ketones Negative (Negative) 10/13/23 06:41 Urine Blood Neg (Negative) 10/13/23 06:41 Urine Nitrate Negative (Negative) 10/13/23 06:41 Urine Bilirubin Neg (Negative) 10/13/23 06:41 Urine Urobilinogen Neg mg/dL (Negative) 10/13/23 06:41 Ur Leukocyte Esterase Negative (Negative) 10/13/23 06:41 Urine RBC 0-4 /hpf (0-2) H 10/13/23 06:41 Urine WBC 0-4 /hpf (0-5) H 10/13/23 06:41 Ur Squamous Epith Cells 0-4 /hpf (0-5) H 10/13/23 06:41 Ur Transition Epith Cell 5-10 /hpf 10/13/23 06:41 Amorphous Sediment Not Reportable 10/13/23 06:41 Urine Bacteria Trace /hpf (NONE) 10/13/23 06:41 Vancomycin Trough 15.5 ug/mL (10-15) H 10/16/23 11:21 Serum Ketones Negative (Negative) 10/13/23 06:41 Coronavirus 229E (PCR) Detected (NOT DETECT) A 10/13/23 07:22 SARS-CoV-2 (PCR) Not detected (NOT DETECT) 10/13/23 07:22 MRSA (PCR) Not detected (NOT DETECTED) 10/13/23 15:45 Blood Type O Positive 10/19/23 05:48 Rho(D) Type Rh positive 10/19/23 05:48 Antibody Screen Negative 10/19/23 05:48 Crossmatch See Detail 10/19/23 05:[address] 10/13/23 07:36 IMPRESSION: No acute intracranial process. ASSESSMENT: ASPECTS ([place] Stroke Program Early CT Score) is 10. Recent Clincial Data Last Vital Signs Temp 97.9 F 10/20/23 20:00 Pulse 72 10/20/23 20:30 Resp 21 H 10/20/23 20:30 BP 128/57 10/20/23 20:00 Pulse Ox 96 10/20/23 20:30 O2 Del Method BiPAP 10/20/23 20:30 O2 Flow Rate 50 10/20/23 18:30 FiO2 60 10/20/23 20:30 Vital Signs Temp Pulse Pulse Resp Resp BP Pulse Ox 10/20/23 20:30 72 21 H 96 10/20/23 20:30 72 96 10/20/23 20:00 97.9 F 98 28 H 128/57 96 10/20/23 19:30 82 19 H 90 10/20/23 19:00 108 H 20 H 135/47 83 L 10/20/23 18:30 98.2 F 79 25 H 133/65 91 10/20/23 18:00 92 21 H 143/52 90 10/20/23 17:30 95 19 H 138/74 93 10/20/23 17:00 84 23 H 131/47 90 10/20/23 16:30 18 92 10/20/23 16:06 78 20 H 10/20/23 16:00 80 19 H 148/50 92 10/20/23 15:30 84 21 H 141/41 10/20/23 15:00 86 20 H 136/52 90 10/20/23 14:30 78 21 H 148/40 95 10/20/23 14:00 88 23 H 146/59 92 10/20/23 14:00 80 10/20/23 13:30 87 23 H 130/56 91 10/20/23 13:29 88 20 H 94 10/20/23 13:00 96.2 F L 79 22 H 148/83 89 L 10/20/23 12:30 92 28 H 147/68 97 10/20/23 12:00 88 25 H 122/68 93 10/20/23 11:30 100 20 H 143/46 90 10/20/23 11:00 26 H 136/59 87 L 10/20/23 11:00 91 20 H 10/20/23 10:30 86 22 H 128/58 94 Pulse Ox O2 Del Method O2 Flow Rate O2 Flow Rate FiO2 FiO2 10/20/23 20:30 BiPAP 60 10/20/23 20:30 60 10/20/23 20:00 BiPAP 60 10/20/23 19:30 10/20/23 19:00 10/20/23 18:30 High Flow Nasal Cannula 50 60 10/20/23 18:00 10/20/23 17:30 10/20/23 17:00 10/20/23 16:30 10/20/23 16:06 91 60 60 10/20/23 16:00 10/20/23 15:30 10/20/23 15:00 10/20/23 14:30 10/20/23 14:00 10/20/23 14:00 10/20/23 13:30 10/20/23 13:29 Heated High Flow 60 58 10/20/23 13:00 High Flow Nasal Cannula 10/20/23 12:30 10/20/23 12:00 10/20/23 11:30 10/20/23 11:00 10/20/23 11:00 89 L 60 60 10/20/23 10:30 Intake & Output/Weight 10/18/23 10/19/23 10/20/23 10/21/23 06:59 06:59 06:59 06:59 Intake Total 1845.524 / 1845.524 349.262 / 942.577 2325.5 / 1029.5 1451.492 / 1451.492 Output Total 850 / 850 1600 / 1600 1200 / 1200 1100 / 1100 Balance 995.524 / 995.524 -1250.738 / -1250.738 -170.5 / -170.5 351.492 / 351.492 Weight 89.5 kg Vitals Last Vital Signs Temp 97.9 F 10/20/23 20:00 Pulse 72 10/20/23 20:30 Resp 21 H 10/20/23 20:30 BP 128/57 10/20/23 20:00 Pulse Ox 96 10/20/23 20:30 O2 Del Method BiPAP 10/20/23 20:30 O2 Flow Rate 50 10/20/23 18:30 FiO2 60 10/20/23 20:30 TS Medications Medications Acetaminophen (Acetaminophen 325 Mg Tablet) 650 mg PO Q6H PRN PRN Reason: MILD PAIN Albuterol/Ipratropium (Ipratropium-Albuterol 3 Ml Neb) 3 ml INHALATION Q6H.RESP [facility] Last Admin: 10/20/23 20:29 Dose: 3 ml Alprazolam (Alprazolam 0.5 Mg Tablet) 0.5 mg PO TID PRN PRN Reason: ANXIETY Last Admin: 10/20/23 09:25 Dose: 0.5 mg Aspirin (Aspirin 81 Mg Ec Tablet) 81 mg PO DAILY [facility] Last Admin: 10/20/23 09:25 Dose: 81 mg Atorvastatin Calcium (Atorvastatin 40 Mg Tablet) 40 mg PO QPM [facility] Last Admin: 10/20/23 17:33 Dose: 40 mg Budesonide (Budesonide 0.5 Mg/2 Ml Neb) 0.5 mg INHALATION BID.RESPIRATORY [facility] Last Admin: 10/20/23 20:29 Dose: 0.5 mg Cetirizine HCl (Cetirizine 10 Mg Tablet) 10 mg PO DAILY [facility] Last Admin: 10/20/23 09:24 Dose: 10 mg Clopidogrel Bisulfate (Clopidogrel 75 Mg Tablet) 75 mg PO DAILY [facility] Last Admin: 10/20/23 09:25 Dose: 75 mg Docusate Sodium (Docusate Sodium 100 Mg Capsule) 100 mg PO DAILY [facility] Last Admin: 10/20/23 09:25 Dose: 100 mg Finasteride (Finasteride 5 Mg Tablet) 5 mg PO DAILY [facility] Last Admin: 10/20/23 09:25 Dose: 5 mg Furosemide (Furosemide 10 Mg/Ml Sdv 2ml) 20 mg IVP DAILY [facility] Last Admin: 10/20/23 09:26 Dose: 20 mg Heparin Sodium (Porcine) (Heparin 5,000 Unit/Ml Inj 1 Ml) 5,000 unit SUBCUT Q12H [facility] Last Admin: 10/19/23 12:25 Dose: 5,000 unit norepinephrine (Levophed) 4 mg in 250 mls @ 0 mls/hr IV .Q0M [facility]; Protocol Last Titration: 10/17/23 19:00 Dose: Infused Dextrose (D5w) 500 mls @ 0 mls/hr IV ONCE PRN; Protocol PRN Reason: Adult Acute Hypoglycemia Prot Dextrose (D10w) 125 mls @ 750 mls/hr IV PRN PRN; Protocol PRN Reason: Adult Acute Hypoglycemia Nursing Protocol Dextrose (D10w) 250 mls @ 1,000 mls/hr IV PRN PRN; Protocol PRN Reason: Adult Acute Hypoglycemia Nursing Protocol Dexmedetomidine/Sodium Chloride (Precedex) 400 mcg in 100 mls @ 0 mls/hr IV .Q0M [facility]; Protocol Last Titration: 10/20/23 21:29 Dose: 0 mcg/kg/hr, 0 mls/hr Piperacillin Sod/Tazobactam (Sod 3.375 gm/ Dextrose) 50 mls @ 12.5 mls/hr IV Q8H [facility]; Protocol Last Admin: 10/20/23 17:34 Dose: 12.5 mls/hr Dextrose (D5w) 1,000 mls @ 30 mls/hr IV .Q24H [facility] Last Admin: 10/20/23 21:00 Dose: 30 mls/hr Insulin Human Lispro (Insulin Lispro 100 Unit/1 Ml) 0 unit SUBCUT WM&BEDTIME [facility]; Protocol Last Admin: 10/20/23 20:59 Dose: 2 unit Lanolin (Lanolin Oint 7 Gm) 1 applic TOPICAL PRN PRN PRN Reason: DRYNESS Magnesium Hydroxide (Magnesium Hydroxide 30 Ml Udc) 30 ml PO DAILY PRN PRN Reason: CONSTIPATION Methylprednisolone Sodium Succinate (Methylprednisolone Sod Succ 40 Mg/Ml Inj) 40 mg IVP Q6H [facility] Last Admin: 10/20/23 21:00 Dose: 40 mg Morphine Sulfate (Morphine 4 Mg/Ml Sdv 1 Ml) 1 mg IVP Q2H PRN PRN Reason: SEVERE PAIN Last Admin: 10/19/23 16:27 Dose: 1 mg Nitroglycerin (Nitroglycerin 0.4 Mg Sublingual Tablet) 0.4 mg SUBLINGUAL Q5M PRN PRN Reason: CHEST PAIN Last Admin: 10/19/23 17:41 Dose: 0.4 mg Pantoprazole Sodium (Pantoprazole 40 Mg Sdv) 40 mg IVP BID [facility] Last Admin: 10/20/23 18:14 Dose: 40 mg Senna/Docusate Sodium (Sennosides-Docusate Tablet) 1 tab PO DAILY [facility] Last Admin: 10/20/23 09:24 Dose: 1 tab Sodium Chloride (Sodium Chloride 0.9% 100 Ml Bag) 50 ml IV PRN PRN PRN Reason: Blood transfusion prime and flush Stop: 10/21/23 00:34 Last Admin: 10/20/23 05:32 Dose: 50 ml Sucralfate (Sucralfate 1 Gm/10 Ml Oral Liq Udc) 1 gm PO AC&BEDTIME [facility] Last Admin: 10/20/23 21:02 Dose: 1 gm Discontinued Medications Albuterol/Ipratropium (Ipratropium-Albuterol 3 Ml Neb) 3 ml INHALATION ONCE ONE Stop: 10/13/23 06:49 Last Admin: 10/13/23 12:39 Dose: Not Given Albuterol/Ipratropium (Ipratropium-Albuterol 3 Ml Neb) 3 ml INHALATION Q6H [facility] Aspirin (Aspirin 81 Mg Chew Tablet) 324 mg NG-TUBE NOW ONE Stop: 10/13/23 06:50 Last Admin: 10/13/23 07:08 Dose: 324 mg Etomidate (Etomidate 2 Mg/Ml Inj Sdv 10 Ml) 20 mg IVP NOW ONE Stop: 10/13/23 07:00 Last Admin: 10/13/23 06:43 Dose: 20 mg Fentanyl (Fentanyl 50 Mcg/Ml Inj 2ml) 100 mcg IVP ONCE PRN PRN Reason: for egd Furosemide (Furosemide 10 Mg/Ml Sdv 10ml) 60 mg IVP ONCE ONE Stop: 10/13/23 07:03 Last Admin: 10/13/23 07:13 Dose: 60 mg Heparin Sodium (Porcine) (Heparin 5,000 Unit/Ml Inj 1 Ml) 0 unit IV PRN PRN; Protocol PRN Reason: Heparin weight-base protocol Last Admin: 10/15/23 00:57 Dose: 1,800 unit Fentanyl (Sublimaze) 1,000 mcg in 100 mls @ 0 mls/hr IV .Q0M HANNAH; Protocol Last Titration: 10/17/23 18:27 Dose: Infused Midazolam HCl (Versed) 100 mg in 100 mls @ 0 mls/hr IV .Q0M HANNAH; Protocol Last Titration: 10/13/23 14:31 Dose: Infused Vancomycin HCl 1,000 mg/ (Sodium Chloride) 250 mls @ 250 mls/hr IV ONCE ONE; Protocol Stop: 10/13/23 08:42 Last Admin: 10/13/23 13:19 Dose: Not Given Piperacillin Sod/Tazobactam (Sod 3.375 gm/ Sodium Chloride) 50 mls @ 100 mls/hr IV ONCE ONE; Protocol Stop: 10/13/23 08:12 Last Infusion: 10/13/23 10:25 Dose: Infused Piperacillin Sod/Tazobactam (Sod 3.375 gm/ Sodium Chloride) 50 mls @ 12.5 mls/hr IV Q8H HANNAH; Protocol Last Infusion: 10/18/23 19:00 Dose: Infused Heparin Sodium/Sodium Chloride (Heparin Drip) 25,000 unit in 500 mls @ 0 mls/hr IV .Q0M [facility]; Protocol Last Titration: 10/15/23 09:16 Dose: 0 unit/kg/hr, 0 mls/hr Vancomycin/PEG/NADA/Lysine/Water (Vancocin) 1,500 mg in 300 mls @ 200 mls/hr IV Q24H [facility] Last Infusion: 10/15/23 14:51 Dose: Infused Propofol (Diprivan) 1,000 mg in 100 mls @ 0 mls/hr IV .Q0M [facility]; Protocol Last Titration: 10/15/23 11:30 Dose: 0 mcg/kg/min, 0 mls/hr Sodium Chloride (Sodium Chloride 0.9%) 250 mls @ 250 mls/hr IV ONCE ONE Stop: 10/14/23 09:49 Last Infusion: 10/14/23 19:17 Dose: Infused Sodium Chloride (Sodium Chloride 0.9%) 1,000 mls @ 50 mls/hr IV .Q20H [facility] Last Infusion: 10/18/23 00:47 Dose: Infused Sodium Chloride (Sodium Chloride 0.9%) 1,000 mls @ 30 mls/hr IV .Q24H ONE Stop: 10/16/23 14:37 Sodium Chloride (Sodium Chloride 0.9%) 1,000 mls @ 30 mls/hr IV .Q24H ONE Stop: 10/17/23 05:59 Last Infusion: 10/17/23 09:10 Dose: Infused Sodium Chloride (Sodium Chloride 0.9%) 500 mls @ 500 mls/hr IV ONCE ONE Stop: 10/16/23 12:11 Last Infusion: 10/17/23 09:10 Dose: Infused Labetalol HCl (Labetalol 5 Mg/Ml Sdv 20ml) 10 mg IVP ONCE ONE Stop: 10/13/23 08:02 Last Admin: 10/13/23 11:04 Dose: Not Given Lidocaine HCl (Lidocaine 1% Inj 10 Ml (Per Ml)) 0.1 ml INTRADERMA ONCE ONE Stop: 10/15/23 14:46 Last Admin: 10/16/23 12:06 Dose: Not Given Lidocaine HCl (Lidocaine 1% Inj 10 Ml (Per Ml)) 0.1 ml INTRADERMA ONCE ONE Stop: 10/16/23 06:01 Last Admin: 10/16/23 12:06 Dose: Not Given Lorazepam (Lorazepam 2 Mg/Ml Inj 10 Ml Mdv) 0.5 mg IVP Q4H PRN PRN Reason: ANXIETY Stop: 10/18/23 09:39 Last Admin: 10/18/23 08:55 Dose: 0.5 mg Methylprednisolone Sodium Succinate (Methylprednisolone Sod Succ 125 Mg/2 Ml Inj) 60 mg IVP Q12H [facility] Last Admin: 10/13/23 23:48 Dose: 60 mg Methylprednisolone Sodium Succinate (Methylprednisolone Sod Succ 125 Mg/2 Ml Inj) 60 mg IVP Q24H [facility] Last Admin: 10/16/23 10:12 Dose: 60 mg Methylprednisolone Sodium Succinate (Methylprednisolone Sod Succ 125 Mg/2 Ml Inj) 30 mg IVP DAILY [facility] Last Admin: 10/18/23 08:59 Dose: 30 mg Midazolam HCl (Midazolam 1 Mg/Ml Inj 2 Ml) 5 mg IVP ONCE PRN PRN Reason: for EGD Last Admin: 10/16/23 11:02 Dose: 5 mg Pantoprazole Sodium (Pantoprazole 40 Mg Sdv) 40 mg IVP DAILY [facility] Last Admin: 10/15/23 08:41 Dose: 40 mg Propofol (Propofol 10 Mg/Ml Sdv 20 Ml) 100 mg IVP ONCE ONE Stop: 10/13/23 08:03 Last Admin: 10/13/23 08:25 Dose: 100 mg Vecuronium [place] (Vecuronium 10 Mg Sdv) 10 mg IVP ONCE ONE Stop: 10/13/23 07:01 Last Admin: 10/13/23 06:43 Dose: 10 mg Allergies No Known Allergies Allergy (Verified 09/26/23 09:07) Home Medications atorvastatin 40 mg tablet 40 mg PO QPM 01/07/20 [History Confirmed 10/13/23] garlic 1,000 mg capsule 1,000 mg PO DAILY 01/07/20 [History Confirmed 10/13/23] metformin 500 mg tablet,extended release 24 hr 500 mg PO BID 01/07/20 [History Confirmed 10/13/23] montelukast 10 mg tablet 10 mg PO DAILY 01/07/20 [History Confirmed 10/13/23] multivitamin (Multiple Vitamins tablet) 1 tab PO DAILY 01/07/20 [History Confirmed 10/13/23] omega [id number]-fish oil 1,000 mg (120 mg-180 mg) capsule (Fish Oil) 1 cap PO DAILY 01/07/20 [History Confirmed 10/13/23] finasteride 5 mg tablet 5 mg PO DAILY 03/07/20 [History Confirmed 10/13/23] clopidogrel 75 mg tablet 75 mg PO DAILY #90 tabs 05/12/20 [Rx Confirmed 10/13/23] fluticasone fur. 100 mcg-umeclid 62.5 mcg-vilant 25 mcg inhalat.powder (Trelegy Ellipta) 1 inh inhalation DAILY 11/18/20 [History Confirmed 10/13/23] fluticasone propionate 50 mcg/actuation nasal spray,suspension 1 spray intranasal DAILY PRN Dry Nasal Passages 02/02/21 [History Confirmed 10/13/23] furosemide 20 mg tablet 20 mg PO DAILY 07/15/21 [History Confirmed 10/13/23] guaifenesin 600 mg tablet, extended release 12 hr (Mucinex) 600 mg PO DAILY 12/17/21 [History Confirmed 10/13/23] aspirin 81 mg tablet,delayed release (Adult Aspirin Regimen) 81 mg PO DAILY #90 tabs 12/28/21 [Rx Confirmed 10/13/23] cholecalciferol (vitamin D3) 10 mcg (400 unit) capsule 10 mcg PO DAILY 02/15/22 [History Confirmed 10/13/23] albuterol sulfate 90 mcg/actuation aerosol inhaler 2 inh inhalation Q8H PRN shortness of breath or wheezing #8.5 grams 07/21/22 [Rx Confirmed 10/13/23] custom molded accomodative orthotics and shoes #1 ea 05/18/23 [Rx Confirmed 10/13/23] carvedilol 3.125 mg tablet (Coreg) 3.125 mg PO BID #180 tabs 05/30/23 [Rx Confirmed 10/13/23] albuterol sulfate 2.5 mg/3 mL (0.083 %) solution for nebulization 2.5 mg inhalation Q6H PRN Shortness Of Breath 10/13/23 [History Confirmed 10/13/23] cetirizine 10 mg tablet 10 mg PO DAILY 10/13/23 [History Confirmed 10/13/23] prednisone 10 mg tablet See Rx Instructions .Route .COMPLEX 10/13/23 [History Confirmed 10/13/23] Discharge Plan Discharge Patient Disposition: Xfer Short-Term Hosp Condition: Stable Prescriptions: No Action furosemide 20 mg tablet 20 mg PO DAILY finasteride 5 mg tablet 5 mg PO DAILY cholecalciferol (vitamin D3) 10 mcg (400 unit) capsule 10 mcg PO DAILY guaifenesin [Mucinex] 600 mg tablet extended release 12hr 600 mg PO DAILY (DME) custom molded accomodative orthotics and shoes See Rx Instructions .Route .MEDSUPPLY Qty: 1 0RF Rx Instructions: As directed external heel lift on left made by the [employer] clopidogrel 75 mg tablet 75 mg PO DAILY Qty: 90 3RF aspirin [Adult Aspirin Regimen] 81 mg tablet,delayed release (DR/EC) 81 mg PO DAILY Qty: 90 3RF carvedilol [Coreg] 3.125 mg tablet 3.125 mg PO BID Qty: 180 3RF Rx Instructions: must administer with a meal/food multivitamin [Multiple Vitamins] Tablet 1 tab PO DAILY atorvastatin 40 mg tablet 40 mg PO QPM garlic 1,000 mg Capsule 1,000 mg PO DAILY montelukast 10 mg tablet 10 mg PO DAILY metformin 500 mg tablet extended release 24 hr 500 mg PO BID omega 0-[id number]-fish oil [Fish Oil] 1,000 mg (120 mg-180 mg) Capsule 1 cap PO DAILY fluticasone propionate 50 mcg/actuation spray,suspension 1 spray INTRANASAL DAILY PRN (Reason: Dry Nasal Passages) Trelegy Ellipta 100-62.5-25 mcg Blister With Device 1 inh INHALATION DAILY prednisone 10 mg tablet See Rx Instructions .ROUTE .COMPLEX Rx Instructions: TAKE 4 TABS BY MOUTH FOR 3 DAYS, 3 TABS FOR 3 DAYS, 2 TABS FOR 3 DAYS, 1 TAB FOR 3 DAYS THEN STOP albuterol sulfate 2.5 mg /3 mL (0.083 %) solution for nebulization 2.5 mg inhalation Q6H PRN (Reason: Shortness Of Breath) cetirizine 10 mg tablet 10 mg PO DAILY albuterol sulfate 90 mcg/actuation HFA aerosol inhaler 2 inh inhalation Q8H PRN (Reason: shortness of breath or wheezing) Qty: 8.5 0RF Referrals: Hema Hartman MD [Primary Care Provider] - Patient Instructions: GI Discharge Instructions, Opioid Safety Transfer Attestations Time Spent in Transfer Care: greater than 30 min Status at Transfer: Cognitive status at transfer: other (sedated); Quality Metrics Clinical Quality Measures [ Acute Myocardial Infaction { Clinical Trial Participant: No; Contraindication to aspirin: Drug intolerance; Contraindication to statin: None; Statin prescribed; Contraindication to PCI: Medical contraindication;}] Coding Level of Care Code 91159 Total time (in minutes) for Discharge: 65 Diagnoses Acute respiratory failure with hypoxia and hypercapnia J96.01; J96.02 Hypernatremia E87.0 Chronic obstructive pulmonary disease with (acute) exacerbation J44.1 Pneumonia J18.9 NSTEMI (non-ST elevated myocardial infarction) I21.4 Upper GI bleeding K92.2 Hypotension I95.9 HAZEL (acute kidney injury) N17.9 Anemia D64.9 Elevated brain natriuretic peptide (BNP) level R79.89 Acute encephalopathy G93.40 Sepsis A41.9
--- NOTE | 2023-10-20 23:42 | PC.NURSE ---
Report was given to Tatiana Boo RN from [facility] in [place] at [id number].
[2023-10-21] VITALS: BP 120/55; PULSE 90; RESP 28; O2SAT 96
[2023-10-21 00:30] VITALS: BP 133/54; PULSE 79; RESP 18; O2SAT 96
[2023-10-21 01:00] VITALS: BP 124/58
--- NOTE | 2023-10-21 01:13 | PC.NURSE ---
Patient was picked up by [facility] at 0103. Patient was stable when they were being transferred over to the helicopter.
[2023-10-21 01:19] VITALS: BP 124/58; PULSE 79; RESP 18; TEMP 36.6; O2SAT 96
[2023-10-21 17:07] LABS: Glucose Point of Care 173 mg/dL (70-110)
== END 2023-10-21 01:03 | DRG 870 ==
LOC: ER 06:52 → ICU 08:56
PROVIDERS: Internal Medicine; Student in an Organized Health Care Education/Training Program; Surgery; Admitting Provider Internal Medicine; Emergency Provider Family Medicine; PCP Family Medicine; Visit Provider Internal Medicine
PROC: 0DJ08ZZ Inspection of Upper Intestinal Tract, Via Natural or Artificial Opening Endoscopic (ICD-10-PCS; CPT 43235; principal; 2023-10-16 11:00)
DX: A41.9 Sepsis, unspecified organism (principal); G93.41 Metabolic encephalopathy; J18.9 Pneumonia, unspecified organism; J96.01 Acute respiratory failure with hypoxia; R65.21 Severe sepsis with septic shock; J96.02 Acute respiratory failure with hypercapnia; K29.71 Gastritis, unspecified, with bleeding; I21.A1 Myocardial infarction type 2; I13.0 Hypertensive heart and chronic kidney disease with heart failure and stage 1 through stage 4 chronic kidney disease, or unspecified chronic kidney disease; I50.32 Chronic diastolic (congestive) heart failure; J44.1 Chronic obstructive pulmonary disease with (acute) exacerbation; J44.0 Chronic obstructive pulmonary disease with (acute) lower respiratory infection; R04.2 Hemoptysis; E87.20 Acidosis, unspecified; N17.9 Acute kidney failure, unspecified; B97.29 Other coronavirus as the cause of diseases classified elsewhere; F17.200 Nicotine dependence, unspecified, uncomplicated; E11.42 Type 2 diabetes mellitus with diabetic polyneuropathy; E11.22 Type 2 diabetes mellitus with diabetic chronic kidney disease; N18.2 Chronic kidney disease, stage 2 (mild); D63.1 Anemia in chronic kidney disease; I25.10 Atherosclerotic heart disease of native coronary artery without angina pectoris; G47.33 Obstructive sleep apnea (adult) (pediatric); I34.0 Nonrheumatic mitral (valve) insufficiency; R00.1 Bradycardia, unspecified; F41.9 Anxiety disorder, unspecified; Z11.52 Encounter for screening for COVID-19; Z95.1 Presence of aortocoronary bypass graft; Z79.84 Long term (current) use of oral hypoglycemic drugs; Z79.02 Long term (current) use of antithrombotics/antiplatelets; Z95.0 Presence of cardiac pacemaker; Z87.01 Personal history of pneumonia (recurrent); Z86.15 Personal history of latent tuberculosis infection; Z89.429 Acquired absence of other toe(s), unspecified side
CPT/HCPCS: 31500; 36415; 36416; 36430; 36556; 36592; 36600; 43235; 51702; 70450; 71045; 76770; 80048; 80051; 80053; 80061; 80202; 81001; 82009; 82330; 82550; 82607; 82746; 82803; 82805; 82962; 83036; 83540; 83550; 83605; 83690; 83735; 83880; 84443; 84484; 85014; 85018; 85025; 85610; 85730; 86480; 86850; 86900; 86920; 87040; 87070; 87205; 87635; 87641; 92610; 93005; 93306; 94002; 94003; 94640; 94660; 94799; 96365; 96366; 96367; 96368; 96372; 96375; 96376; 99291; 99292; A4570; C9113; J1644; J1815; J1940; J2060; J2250; J2270; J2543; J2704; J2920; J2930; J3010; J3370; J3490; J7030; J7040; J7050; J7070; J7626; P9016